=== PATIENT | female | born 1965 | race Caucasian/White ===

== ENCOUNTER 2018-11-06 16:43 | Emergency (ER) | payer BC, OTHER ==
[~2018-11-06] VITALS: Ht 162.6 cm; Wt 79.4 kg
[~2018-11-06 16:43] MED LIST: ATIVAN1 MG PO; BACTRIM DS1 EA; BISTOLIC; CEFUROXIME250 MG PO; CYMBALTA60 MG PO; ENALAPRIL MALEAT5 MG; FLUOXETINE; HYDROCODONE-AP1 EAC1 PO; KRISTALOSE20 GM PO; LEVAMIR SC; LISINOPRIL10 MG PO; LYRICA150 MG PO; NOVOLOG100 UNIT/1 SQ; PHENTERMINE H37.5 MG PO; PROTONIX40 M1; PYRIDIUM200 MG PO; QUETIAPINE FUMA25 MG PO; SPIRONOLACTONE100 MG PO; TRAZODONE HCL100 MG PO; VENLAFAXINE HCL75 M2 PO; Z.0.HUMALOG100 UNIT/ SC; Z.0.LANTUS100 UNIT/1; Z.0.NEURONTIN300 MG
--- OUTSIDE RECORDS SUMMARY | 2018-11-06 16:46 | XMS REPORT ---
Author Author [facility] Address Unknown Phone Unavailable Care Team Providers Care Senior Lead Project Manager Name Role Phone CLARISA BOWMAN Unavailable Unavailable Payers Payer Name Policy Type Policy Number Effective Date Expiration Date Problems This patient has no known problems. Allergies, Adverse Reactions, Alerts Allergy Name Allergy Type Status Severity Reaction(s) Onset Date Inactive Date Treating Clinician Comments hydrocodone DA Active MO 2017-07-15 00:00:00 Medications This patient has no known medications. Results Test Description Test Time Test Comments Text Results Atomic Results Result Comments CR - XRAY LUMBOSACRAL XR 2/3 VIEWS 2018-02-13 13:16:13 CLINICAL INDICATION: M54.5 Low back painFINDINGS:COMPARISON: NoneFive lumbar vertebrae are present. There is mild generalized levoscoliosis. There is mild - moderate degeneration of all lumbar discs with spondylosis. L5-S1 disc is most degenerated.Facet joints are degenerated from L1-2 - L5-S1.There are compression fractures of L2 and L3 which have a chronic appearance. At L2 there is approxi mately 50% loss of height. At L3 there is approximately 30% loss of vertical height. There is spondylosis bridging adjacent vertebra at each of these levels. However, if there is any concern over acute fracture, lumbar MRI could be performed. There are surgical clips in the right upper quadrant.IMPRESSION:1. There are five lumbar vertebra with mild levoscoliosis.2. Compression deformities at L2 and L3 have a chronic appearance. If there is any concern over acute fracture, lumbar MRI would be recommended.3. Multilevel facet osteoarthritis and disc degeneration. CHEST XRAY LINE PLACEMENT [place] [address] Patient Name: VERONICA GREENWOOD MR #: [id number] : 1965 Age/Sex: 52/F Req #: [id number] Adm Physician: CLARISA BOWMAN MD Ordered by: CLARISA BOWMAN MD Report #: [id number] Location: [facility] Room/Bed: [facility] Procedure: [id number] DX/CHEST XRAY LINE PLACEMENT Exam Date: 08/09/17 Exam Time: 1757 REPORT STATUS: Signed EXAMINATION: Chest, CHEST XRAY LINE PLACEMENT INDICATION: Chest pain COMPARISON: Portable chest 08/06/2017 FINDINGS: LINES: Right peripherally inserted central venous catheter is present with the tip projecting over the expected region of the superior vena cava. Heart: Normal cardiac silhouette. Vascular: The pulmonary vasculature is within normal limits. Atherosclerotic calcifications of the aortic arch. Mediastinum: No mediastinal, hilar, or axillary mass or lymphadenopathy. Lungs: No parenchymal mass. No focal consolidation. Pleura: No pleural effusion. No pneumothorax. Bones: No acute osseous abnormality. Degenerative changes of the thoracic spine. Soft tissues: Normal. Impression: No acute radiographic abnormality. Signed by: Dr. Pillo Parsons M.D. on 08/09/2017 6:22 PM Dictated By: PILLO PARSONS MD 21 Transcribed By: JENIFFER on 08/09/171821 COPY TO: CLARISA BOWMAN MD CHEST SINGLE (PORTABLE) [place] [address] Patient Name: VERONICA GREENWOOD MR #: [id number] : 1965 Age/Sex: 52/F Req #: [id number] Adm Physician: CLARISA BOWMAN MD Ordered by: CLARISA BOWMAN MD Report #: [id number] Location: [facility] Room/Bed: [facility] 179-1 Procedure: [id number] DX/CHEST SINGLE (PORTABLE) Exam Date: 08/06/17 Exam Time: 193 REPORT STATUS: Signed Single view chest August 06, 2017 Clinical history: Admission Technique: AP view chest Comparison: June 19, 2011 Findings: The lungs are clear and symmetrically inflated. No pleural effusions. Enlarged cardiac silhouette for technique. Cephalization pulmonary vasculature with azygos and pulmonary artery enlargement. The skeleton is grossly intact. Impression: Cardiomegaly with central vascular congestion. This report was generated with voice-recognition technology. Errors in zoogler can occur. Please interpret accordingly and contact a radiologist if there are any questions regarding the report. Signed by: Dr. Verito De Paz M.D. on 08/06/2017 9:19 PM Dictated By: VERITO DE PAZ MD 18 Transcribed By: JENIFFER on 08/06/172118 COPY TO: CLARISA BOWMAN MD MRI PELVIS [place] [address] Patient Name: VERONICA GREENWOOD MR #: [id number] : 1965 Age/Sex: 51/F Req #: [id number] Adm Physician: Ordered by: CLARISA BOWMAN MD Report #: [id number] Location: MRI Room/Bed: Procedure: [id number] MRI/MRI PELVIS WOW Exam Date: Exam Time: REPORT STATUS: Signed TECHNIQUE: Magnetic resonance imaging of the PELVIS was performed WITH and WITHOUT, 8 cc of intravenous Gadavist. HISTORY: Bony exostosis, reported history of infection in pelvic bone, reported history of MRSA skin infections COMPARISON: CT of the pelvis May 04, 2017, CT of the pelvis October 01, 2010. Nuclear medicine bone scan May 05, 2017. Lumbar spine MRI May 07, 2017. FINDINGS: Bones: No focal or infiltrative bone marrow replacing abnormality. Compression fracture deformities of L2, L3 and L4 are likely stable within the limitations of this comparison. No evidence of acute/active osteomyelitis involving the right ischium. Joints: Mild to moderate degenerative changes of the hips. Soft tissues: Heterotopic ossification adjacent to the right ischial tuberosity at the in the region of the proximal hamstring tendons which are markedly thickened and heterogeneous with mild intrasubstance edema. IMPRESSION: 1. Findings which are most suggestive of the sequela of a late subacute to chronic proximal right hamstring tear and enthesopathy. No MRI evidence of acute/active right ischial osteomyelitis. Chronic/treated osteomyelitis may be a consideration in the appropriate setting. 2. Stable appearing compression deformities of L2, L3 and L4, better characterized on the MRI of the lumbar spine from May 07, 2017. Signed by: Dr. Salty Horne M.D. on 05/23/2017 12:09 PM Dictated By: SALTY HORNE DO 120 Transcribed By: JENIFFER on 05/23/17 120 COPY TO: CLARISA BOWMAN MD MRI SPINE LUMBAR WOW [place] [address] Patient Name: VERONICA GREENWOOD MR #: [id number] : 1965 Age/Sex: 51/F Req #: [id number] Adm Physician: CLARISA BOWMAN MD Ordered by: JAMES ALVA MD Report #: [id number] Location: MED/SURG3 Room/Bed: [facility] Procedure: [id number] MRI/MRI SPINE LUMBAR WOW Exam Date: 05/07/17 Exam Time: 1135 REPORT STATUS: Signed History: Low back pain Comparison studies: None Technique: Sagittal, coronal and axial T2 , sagittal T1 and IR, axial spin density oblique. Post contrast axial and sagittal T1. Intravenous contrast: 8 cc of Gadavist Findings: Number of lumbar vertebral bodies:5 Alignment: Normal lordosis.No scoliosis. Soft tissues: Subtle T2 hyperintense inflammatory changes in the right paraspinal soft tissues are L4-5.. Paraspinal muscles: Fatty infiltrated from L4 through S1. Lower thoracic cord:Normal in signal and morphology. The tip of the conus is at T12-L1. Cauda equina: No masses. No arachnoiditis. Vertebrae: An acute compression fracture along the superior endplate of L2 (hypointense on T1, hyperintense on T2 and diffusely enhancing) results in less than 20% height loss. A 3 mm retropulsed fragment from the superior endplate does not result in significant spinal canal stenosis. The enhancing inflammatory changes extend into the pedicles and focally into the paraspinal soft tissues. Additional chronic compression fractures along the superior endplates of L3 and L4 which results in approximately focal 30% of height loss are still associated with subtle T2 hyperintense enhancing inflammatory changes but much less than at L2. No retropulsed fragments displaced into the canal at both levels. Focal T2 hyperintense inflammatory changes along the anteroinferior endplate of L1 are not associated with compression fractures. Otherwise, no abnormalities at T11, T12, L4, L5 and S1. Degenerative changes: L1-L4: Patent spinal canal and foramina. No disc herniation. L4-5: A central disc protrusion indents the thecal sac but does not result in spinal canal or foraminal stenosis. L5-S1: Mildly degenerated disc without Modic type I inflammatory changes along the endplates. A 2 mm central and right central disc protrusion abuts but does not compress the right S1 nerve root. Patent spinal canal. Foraminal stenosis is moderate left, mild right due to an asymmetric disc bulge and endplate osteophytes. No disc herniation. Partially visualized sacrum: No signal abnormalities. IMPRESSION: 1. Acute compression fracture along the superior endplate of L2 as described. 2. Chronic focal compression fractures at L3 and L4 are associated with subtle residual inflammatory changes. 3. A central disc protrusion at L4-5 does not compress nerve roots, foramina or spinal canal. 4. Degenerative changes result in foraminal stenosis, moderate left, mild right at L5-S1. Signed by: Dr. Zeeshan Ly M.D. on 05/07/2017 6:54 PM Dictated By: ZEESHAN LY MD, MD 53 Transcribed By: JENIFFER on 05/07/171853 COPY TO: JAMES ALVA MD SPECIAL PROCEDURE IN CRITICAL POWER TECHNICIAN [place] [address] Patient Name: VERONICA GREENWOOD MR #: [id number] : 1965 Age/Sex: 51/F Req #: [id number] Adm Physician: CLARISA BOWMAN MD Ordered by: JAMES ALVA MD Report #: [id number] Location: MED/SURG3 Room/Bed: [facility] Procedure: [id number] IR/SPECIAL PROCEDURE IN CRITICAL POWER TECHNICIAN Exam Date: Exam Time: REPORT STATUS: Signed Date and Time: 05/06/2017 Procedure: Right internal jugular tunneled central venous catheter placement 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 Schultz Pre-operative diagnosis: Osteomyelitis, need for long-term intravenous antibiotics Post-operative diagnosis: Osteomyelitis, need for long-term intravenous antibiotics Conscious Sedation: Fentanyl 75 mcg intravenous. The patient's heart rate and pulse oximetry were continuously monitored by the interventional radiology nurse. Blood pressure was monitored at 5 minute intervals. Additional Medications: Lidocaine 2% for local anesthesia Fluoroscopy time: 1.5 minutes Dose-area Product: 558 cGycm2. Contrast used: None Estimated blood loss: Less than 5 cc Blood products administered: None Specimens: None Implants: 9 Tongan dual lumen tunneled central venous catheter Condition at completion of procedure: Stable Disposition: Returned to chow unit. DISCUSSION: Informed consent for the procedure was obtained from the patient and documented in the medical record. The patient was placed in the supine position on the angiographic table. The right neck and upper chest were prepped and draped in the standard sterile fashion. Preliminary sonographic evaluation confirmed patency of the right internal jugular vein, evidenced by compressibility. 2% lidocaine was infiltrated into the skin and subcutaneous tissues for local anesthesia. Then under continuous sonographic guidance, a 21-gauge micropuncture needle was used to access the right internal jugular vein. A 0.0 1 8-in. wire was advanced centrally under fluoroscopic guidance. The needle was exchanged for a 5 Tongan micropuncture sheath. Intravascular length to the upper right atrium was measured using the microwire. The wire was then upsized to a 0.0 3 5-in. Amplatz wire which was advanced into the inferior vena cava under fluoroscopic guidance. Attention was then turned to creation of a tunnel exit site on the right upper chest approximately 2 fingerbreadths below the clavicle. 2% lidocaine was infiltrated into the skin and subcutaneous tissues on the right upper chest extending to the venotomy at the right lower neck. A small stab incision was made. The catheter was then tunneled from the right upper chest to the right lower neck, placing the retention cuff approximately 2 cm into the subcutaneous tunnel. The catheter was then cut to the predetermined intravascular length. The micropuncture sheath was then exchanged for a 10 Tongan peel-away sheath over the wire. The wire and obturator of the sheath we re removed and the catheter was advanced through the peel-away sheath which was then broken and discarded. The catheter tip was positioned in the upper right atrium. Each lumen was tested and showed adequate bidirectional flow. The small caliber lumen was then packed with 1000 units of heparin. The large caliber lumen was then packed with 2000 units of heparin. The catheter was secured to the skin with monofilament nylon suture. The venotomy at the right lower neck was closed with tissue adhesive. Sterile dressings were applied. The patient tolerated the procedure well without immediate complication. FINDINGS: Patent right internal jugular vein. IMPRESSION: Successful placement of a 9 Tongan, dual lumen tunneled central venous catheter for purposes of long-term intravenous antibiotic administration. Signed by: Dr. Andi Schultz M.D. 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 Schultz Pre-operative diagnosis: Osteomyelitis, need for long-term intravenous antibiotics Post-operative diagnosis: Osteomyelitis, need for long-term intravenous antibiotics Conscious Sedation: Fentanyl 75 mcg intravenous. The patient's heart rate and pulse oximetry were continuously monitored by the interventional radiology nurse. Blood pressure was monitored at 5 minute intervals. Additional Medications: Lidocaine 2% for local anesthesia Fluoroscopy time: 1.5 minutes Dose-area Product: 558 cGycm2. Contrast used: None Estimated blood loss: Less than 5 cc Blood products administered: None Specimens: None Implants: 9 Tongan dual lumen tunneled central venous catheter Condition at completion of procedure: Stable Disposition: Returned to chow unit. DISCUSSION: Informed consent for the procedure was obtained from the patient and documented in the medical record. The patient was placed in the supine position on the angiographic table. The right neck and upper chest were prepped and draped in the standard sterile fashion. Preliminary sonographic evaluation confirmed patency of the right internal jugular vein, evidenced by compressibility. 2% lidocaine was infiltrated into the skin and subcutaneous tissues for local anesthesia. Then under continuous sonographic guidance, a 21-gauge micropuncture needle was used to access the right internal jugular vein. A 0.0 1 8-in. wire was advanced centrally under fluoroscopic guidance. The needle was exchanged for a 5 Tongan micropuncture sheath. Intravascular length to the upper right atrium was measured using the microwire. The wire was then upsized to a 0.0 3 5-in. Amplatz wire which was advanced into the inferior vena cava under fluoroscopic guidance. Attention was then turned to creation of a tunnel exit site on the right upper chest approximately 2 fingerbreadths below the clavicle. 2% lidocaine was infiltrated into the skin and subcutaneous tissues on the right upper chest extending to the venotomy at the right lower neck. A small stab incision was made. The catheter was then tunneled from the right upper chest to the right lower neck, placing the retention cuff approximately 2 cm into the subcutaneous tunnel. The catheter was then cut to the predetermined intravascular length. The micropuncture sheath was then exchanged for a 10 Tongan peel-away sheath over the wire. The wire and obturator of the sheath were removed and the catheter was advanced through the peel-away sheath which was then broken and discarded. The catheter tip was positioned in the upper right atrium. Each lumen was tested and showed adequate bidirectional flow. The small caliber lumen was then packed with 1000 units of heparin. The large caliber lumen was then packed with 2000 units of heparin. The catheter was secured to the skin with monofilament nylon suture. The venotomy at the right lower neck was closed with tissue adhesive. Sterile dressings were applied. The patient tolerated the procedure well without immediate complication. FINDINGS: Patent right internal jugular vein. IMPRESSION: Successful placement of a 9 Tongan, dual lumen tunneled central venous catheter for purposes of long-term intravenous antibiotic administration. Signed by: Dr. Andi Schultz M.D. on 05/06/2017 3:17 PM Dictated By: ANDI SCHULTZ MD 1115 Transcri bed By: JENIFFER on 05/29/17 111 COPY TO: JAMES ALVA MD BONE SCAN, 3 PHASE [place] [address] Patient Name: VERONICA GREENWOOD MR #: [id number] : 1965 Age/Sex: 51/F Req #: [id number] Adm Physician: CLARISA BOWMAN MD Ordered by: ANDREW DAO MD Report #: [id number] Location: MED/SURG3 Room/Bed: [facility] [place] Procedure: [id number] NM/BONE SCAN, 3 PHASE Exam Date: 05/05/17 Exam Time: 1530 REPORT STATUS: Signed Bone Scan, three-phase with SPECT Reason for exam: 51 F with acute low back pain and right hip pain; concern for osteomyelitis; Patient passed out twice before pain began. Medications from outside hospital were not helping. Radiopharmaceutical: Tc-99m MDP 26 mCi Comparison: None Following intravenous administration of the radiopharmaceutical, dynamic flow and immediate blood pool images of the lower back, pelvis and hips followed by delayed total body and selected spot images were obtained. Tomographic images of the lower lumbar spine, pelvis and hips were also obtained. Flow and blood pool images show symmetric distribution of tracer in the lower back, pelvis and hips. Focal increased tracer is seen in the right lower pelvis but none is seen in the lumbar spine. On the delayed images, focal increased tracer is seen in L2 and on the right side of L3. Focal increased tracer is also seen in the right ischium inferior to the right acetabulum. The tomographic images confirm the focal increased tracer uptake in the right ischium. L2 and L3 are not included in the tomographic images. Distribution of tracer is unremarkable throughout the remainder of the skeletal system. No abnormal accumulation of tracer is seen in the soft tissues or urinary tract. Impression: 1. Acute osteoblastic process in L2 and L3 is most consistent with trauma given absence of focal uptake on the flow and blood pool images. 2. Acute osteoblastic process in the right ischium is worrisome for osteomyelitis. Signed by: Dr. Viki Mccullough M.D. on 05/05/2017 7:50 PM Dictated By: VIKI MCCULLOUGH MD 49 Transcribed By: JENIFFER on 05/05/171949 COPY TO: ANDREW DAO MD CT ABDOMEN/PELVIS W [place] [address] Patient Name: VERONICA GREENWOOD MR #: [id number] : 1965 Age/Sex: 51/F Req #: [id number] Adm Physician: CLARISA BOWMAN MD Ordered by: SAMMI BARBER MD Report #: [id number] Location: MED/SURG3 Room/Bed: [facility] Procedure: [id number] CT/CT ABDOMEN/PELVIS W Exam Date: 05/04/17 Exam Time: 732 REPORT STATUS: Signed ADDENDUM #1 Addendum: Comparison is made to CT abdomen and pelvis without contrast 10/01/2010 Interval development of a bony exostosis in the mid aspect of the right inferior pubic ramus (series 2, image 91 and sagittal image 45), which extends into the right adductor muscle and measures approximately 3.6 cm in length and likely has a cartilage cap. This corresponds to the focus of increased tracer uptake on recent bone scan dated 05/05/2017. No evidence of infection at this location. Given the findings and patient's symptoms of pain, recommend MRI bony pelvis (MS protocol) with and without contrast, for evaluation of the cartilage cap. Signed by: Dr. Gabino Brunson M.D. on 05/15/2017 11:37 AM ORIGINAL REPORT EXAM: CT Abdomen and Pelvis WITH contrast INDICATION: Right lower quadrant pain, nausea and vomiting, evaluate for appendicitis COMPARISON: CT abdomen and pelvis from 10/01/2010 and KUB from 10/04/2010 TECHNIQUE: Abdomen and pelvis were scanned utilizing a multidetector helical scanner from the lung base to the pubic symphysis after administration of IV contrast. Coronal and sagittal reformations were obtaine d. Routine protocol was performed. Scan was performed when during portal venous phase. IV CONTRAST: 100 mL of Isovue-370 ORAL CONTRAST: None RADIATION DOSE: Total DLP: 593.3 mGy*cm Estimated effective dose: (DLP x 0.015 x size factor) mSv COMPLICATIONS: None FINDINGS: LINES and TUBES: None. LOWER THORAX: Minimal scarring at both lung bases. HEPATOBILIARY: No focal hepatic lesions. No biliary ductal dilation. GALLBLADDER: Cholecystectomy. SPLEEN: No splenomegaly. Small splenule inferior to the spleen. PANCREAS: No focal masses or ductal dilatation. ADRENALS: 1.5 cm right adrenal gland nodule is mildly hyperdense measuring 38 Hounsfield units, however, this nodule was low density on 10/01/2010 and is stable in size and likely represented an adrenal gland adenoma. KIDNEYS/URETERS: Kidneys enhance symmetrically. No hydronephrosis. Stable 1.7 cm left renal cyst. Mild bilateral perinephric fat stranding. Previously noted left renal stone is no longer seen. Few smaller cysts in the right kidney with cortical scarring. No stones. GI TRACT: No abnormal distention, wall thickening, or evidence of bowel obstruction. Large amount of retained stool is throughout the colon without dilatation. Appendix is normal. PELVIC ORGANS/BLADDER: Hysterectomy. The urinary bladder is moderately distended without wall thickening or calcifications. Mild amount of air in the urinary bladder may be due to recent instrumentation. LYMPH NODES: No lymphadenopathy. Stable few small nonspecific mesenteric lymph nodes. VESSELS: Mild atherosclerotic calcifications of the abdominal aorta and pelvic arteries without aneurysm. The celiac trunk, SMA, and SLIME are widely patent. Single bilateral renal arteries are patent Incidental circumaortic left renal vein. PERITONEUM / RETROPERITONEUM: No free air or fluid. BONES: Moderate wedge compression deformity with associated multiple lucent lesions within L3 vertebral body lucent lesions appear to extend into the posterior element on the left. There is also diffuse cortical lucency at L2 vertebral body with degenerative changes of the superior endplate. Moderate before meals space narrowing at L5- S1. All these findings are new when compared to 10/01/2010. SOFT TISSUES: Unremarkable. IMPRESSION: Normal appendix. Interval development of advanced degenerative changes in the lumbar spine as well as wedge compression deformity with cortical destruction of L3 vertebral body. Though these changes may be degenerative, cannot exclude additional pathology such as osteomyelitis or metastasis. Recommend further evaluation with bone scan. These findings may correlate with patient's pain. Stable indeterminate right adrenal gland nodule since 10/01/2010. Signed by: Dr. Catia Moffett M.D. on 05/04/2017 8:21 AM Dictated By: CATIA MOFFETT MD 1137 Transcribed By: JENIFFER on 05/04/17 3839 COPY TO: SAMMI BARBER MD
[2018-11-06 22:20] LABS: BASOPHILS % 0.4 % (0.0-1.0); EOSINOPHILS # (AUTO) 0.2 (0.0-0.4); EOSINOPHILS % 2.1 % (0.0-6.0); HEMATOCRIT 35.6 % (34.2-44.1); HEMOGLOBIN 11.7 g/dL (12.0-16.0); LYMPHOCYTES # (AUTO) 2.6 (1.0-3.2); LYMPHOCYTES % 31.7 % (18.0-39.1); MEAN CORPUSCULAR HEMOGLOBIN 26.2 pg (28-32); MEAN CORPUSCULAR HGB CONC 32.9 g/dL (31-35); MEAN CORPUSCULAR VOLUME 79.6 fL (81-99); MONOCYTES # (AUTO) 0.4 (0.2-0.8); MONOCYTES % 5.3 % (4.4-11.3); NEUTROPHILS # (AUTO) 4.9 (2.1-6.9); NEUTROPHILS % 60.1 % (38.7-80.0); PLATELET COUNT 236 x10e3/uL (140-360); RED BLOOD COUNT 4.47 x10e6/uL (3.6-5.1); RED CELL DISTRIBUTION WIDTH 13.3 % (11.7-14.4)
[2018-11-06 22:31] LABS: ALBUMIN 3.2 g/dL (3.5-5.0); ALBUMIN/GLOBULIN RATIO 0.7 (0.8-2.0); ANION GAP 12.5 mmol/L (8-16); CREATININE, SERUM 1.14 mg/dL (0.57-1.11); POTASSIUM 4.5 mmol/L (3.5-5.1)
[2018-11-06] MEDS ORDERED: INSULIN REGULAR, HUMAN 100 UNIT/1 ML 3ML VIAL SQ ONE (23:00)
[2018-11-06 23:05] VITALS: BP 163/88
== END 2018-11-06 23:06 | disposition home or self-care (01) ==
LOC: ER 16:43
DX: E11.65 Type 2 diabetes mellitus with hyperglycemia (principal); E11.40 Type 2 diabetes mellitus with diabetic neuropathy, unspecified; I10 Essential (primary) hypertension; J45.909 Unspecified asthma, uncomplicated; F32.9 Major depressive disorder, single episode, unspecified
CPT/HCPCS: 36415; 80053; 85025; 96372; 99283

== ENCOUNTER → 2019-05-04 | Day surgery (SDC) | payer BC, OTHER ==
[2019-04-30 15:17] LABS: BASOPHILS % 0.3 % (0.0-1.0); EOSINOPHILS # (AUTO) 0.1 (0.0-0.4); EOSINOPHILS % 1.1 % (0.0-6.0); HEMATOCRIT 38.1 % (34.2-44.1); HEMOGLOBIN 12.1 g/dL (12.0-16.0); LYMPHOCYTES % 27.7 % (18.0-39.1); MEAN CORPUSCULAR HEMOGLOBIN 26.8 pg (28-32); MEAN CORPUSCULAR HGB CONC 31.8 g/dL (31-35); MEAN CORPUSCULAR VOLUME 84.5 fL (81-99); MONOCYTES # (AUTO) 0.4 (0.2-0.8); MONOCYTES % 5.4 % (4.4-11.3); NEUTROPHILS # (AUTO) 4.7 (2.1-6.9); NEUTROPHILS % 65.1 % (38.7-80.0); PLATELET COUNT 197 x10e3/uL (140-360); RED BLOOD COUNT 4.51 x10e6/uL (3.6-5.1); RED CELL DISTRIBUTION WIDTH 13.1 % (11.7-14.4)
[2019-04-30 15:38] LABS: ALBUMIN 3.6 g/dL (3.5-5.0); ANION GAP 17.1 mmol/L (8-16); CALCIUM 9.2 mg/dL (8.4-10.2); CREATININE, SERUM 1.33 mg/dL (0.57-1.11); POTASSIUM 4.1 mmol/L (3.5-5.1)
[2019-05-04] VITALS (14 sets, daily range): BP systolic 110–185; BP diastolic 67–107
[~2019-05-04] VITALS: Ht 162.6 cm; Wt 73.9 kg
[~2019-05-04] MED LIST changes: +ALPRAZOLAM 0.5 MG TAB ONE; +ASPIR 8181 MG PO; +ASPIRIN 325 MG TAB ONE; +BIVALRIUDIN 250 MG/VIAL VIAL IV ONE; +DIPHENHYDRAMINE HCL 25 MG CAP ONE; +FENTANYL CITRATE/PF 100MCG/2 ML INJ ONE; +HEPARIN SOD (PORCINE) 1000 UNIT/ML 30ML ONE; +HEPARIN SOD/SOD CHLORIDE 2,000 ML ONE; +IOPAMIDOL 370 MG/ML 200 ML INFUS..BTL INJ ONE; +LEVEMIR100 UNIT/1 SC; +LIDOCAINE HCL 2% LOCAL 20 ML VIAL ONE; +LYRICA75 MG PO; +METOPROLOL SUCC50 MG PO; +MIDAZOLAM HCL 2 MG/2 ML VIAL ONE; +MORPHINE SULFATE INJ 4 MG/ML INJ 1ML ONE; +PRASUGREL 10 MG TAB ONE; +SODIUM CHLORIDE 0.9% 1000ML 1,000 ML ONE; +SODIUM CHLORIDE 0.9% 50ML 50 ML ONE; +VENLAFAXINE HC100 MG PO; +VERAPAMIL HCL 2.5 MG/ML 2 ML VIAL ONE
--- OUTSIDE RECORDS SUMMARY | 2019-05-04 10:39 | XMS REPORT | Continuity of Care Document ---
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 Name Role Phone [employer] [facility] Unavailable Unavailable Problems Problem Status Onset Date Classification Date Reported Comments Source ACS Active 02/23/2019 [place] DIZZINESS Active 02/23/2019 [facility] ACS (ACUTE CORONARY SYNDROME) Active 02/23/2019 [facility] Cellulitis of left toe 09/16/2018 03/28/2019 [facility] Hyperglycemia, unspecified 09/08/2018 03/28/2019 [facility] Cellulitis, unspecified 09/08/2018 03/28/2019 [facility] FOOR INJURY Active 09/08/2018 [facility] Hypovolemia 08/19/2018 03/01/2019 [facility] BLURRED VISION, WEAKNESS, N/V/D Active 08/10/2018 [facility] Noninfective gastroenteritis and colitis, unspecified 08/08/2018 02/19/2019 [facility] CONSTIPATION/ VOMITING Active 07/30/2018 [facility] Atherosclerotic heart disease of [place] coronary artery with unspecified angina pectoris 04/11/2018 10/17/2018 [facility] Tremor, unspecified 04/08/2018 10/26/2018 [facility] TREMORS Active 04/08/2018 [facility] ACUTE CHEST PAIN Active 03/27/2018 [facility] CHEST PAIN Active 03/27/2018 [facility] DIABETIC FOOT Active 03/19/2018 [facility] WOUND INFECTION Active 03/19/2018 [facility] Unspecified abdominal pain 05/03/2017 05/06/2017 [facility] BACK PAIN Active 05/02/2017 [facility] DIZZINES /FALLING Active 02/05/2017 [facility] SEPSIS, DIZZINES /FALLING Active 02/05/2017 [facility] TRANSFER - INFECTED HAND Active 01/12/2017 [facility] CELLULITIS OF HAND, RIGHT Active 01/12/2017 [facility] OTHER Active 01/11/2017 [place] Enterobacter (organism) Active 05/23/2015 Problem 03/28/2019 Breast abscess, E. aerogenes, 05/23/2015 Problem added by Discern Expert. [facility] Methicillin resistant Staphylococcus aureus (organism) Active 05/23/2015 Problem 03/28/2019 [place], 05/23/2015 Problem added by Discern Expert. [facility] Diabetes mellitus (disorder) Active Problem 01/15/2017 [facility] Diabetic neuropathy (disorder) Active Problem 01/15/2017 [facility] Viral hepatitis C (disorder) Resolved Problem 01/15/2017 [facility] Alcoholic cirrhosis (disorder) Active Problem 03/28/2019 [facility] Coronary arteriosclerosis (disorder) Active Problem 03/28/2019 [facility] Irritable colon (disorder) Active Problem 03/28/2019 [facility] Culture positive for methicillin resistant Staphylococcus aureus (finding) Resolved Problem 03/28/2019 [facility] History of - liver disease (context-dependent category) Active Problem 03/28/2019 [facility] Inflammatory disease of liver (disorder) Active Problem 03/28/2019 [facility] Hypertensive disorder, systemic arterial (disorder) Active Problem 03/28/2019 [facility] Depressive disorder (disorder) Active Problem 03/28/2019 [facility] Prolapsed lumbar intervertebral disc (disorder) Active Problem 03/28/2019 [facility] Sleep apnea (finding) Active Problem 03/28/2019 [facility] Atherosclerotic heart disease of [place] coronary artery without angina pectoris 03/28/2019 [facility] Major depressive disorder, single episode, unspecified 03/28/2019 [facility] Essential (primary) hypertension 10/26/2018 [facility] Irritable bowel syndrome without diarrhea 03/28/2019 [facility] 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 10/26/2018 [facility] Personal history of Methicillin resistant Staphylococcus aureus infection 03/28/2019 [facility] Congestive heart failure (disorder) Active Problem 03/28/2019 [facility] Hyperlipidemia (disorder) Active Problem 03/28/2019 [facility] Neuropathy (disorder) Active Problem 03/28/2019 [facility] Hyperkalemia 03/01/2019 [facility] Type 2 diabetes mellitus without complications 03/01/2019 [facility] Orthostatic hypotension 03/01/2019 [facility] Chondrocostal junction syndrome [Tietze] 03/01/2019 [facility] Alcoholic cirrhosis of liver without ascites 03/01/2019 [facility] Urinary tract infection, site not specified 02/19/2019 [facility] Chronic systolic (congestive) heart failure 02/19/2019 [facility] Hypertensive heart and chronic kidney disease with heart failure and stage 1 through stage 4 chronic kidney disease, or unspecified chronic kidney disease 02/19/2019 [facility] Acute kidney failure, unspecified 02/19/2019 [facility] Dehydration 02/19/2019 [facility] Chronic kidney disease, stage 3 (moderate) 02/19/2019 [facility] Type 2 diabetes mellitus with diabetic chronic kidney disease 02/19/2019 [facility] Type 2 diabetes mellitus with diabetic neuropathy, unspecified 02/19/2019 [facility] Acquired absence of both cervix and uterus 02/19/2019 [facility] assisted (current) use of insulin 02/19/2019 [facility] 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 02/19/2019 [facility] Allergy status to narcotic agent status 02/19/2019 [facility] Cellulitis of right toe 03/28/2019 [facility] Type 1 diabetes mellitus with hyperglycemia 03/28/2019 [facility] Type 1 diabetes mellitus with diabetic neuropathy, unspecified 03/28/2019 [facility] Hypertensive heart disease with heart failure 03/28/2019 [facility] Heart failure, unspecified 03/28/2019 [facility] Unspecified cirrhosis of liver 03/28/2019 [facility] Unspecified viral hepatitis C without hepatic coma 03/28/2019 [facility] Hyperlipidemia, unspecified 03/28/2019 [facility] Sleep apnea, unspecified 03/28/2019 [facility] Patient's other noncompliance with medication regimen 03/28/2019 [facility] Type 1 diabetes mellitus with other specified complication 10/17/2018 [facility] Cellulitis of right lower limb 10/17/2018 [facility] Other acute osteomyelitis, right ankle and foot 10/13/2018 [facility] Type 1 diabetes mellitus with foot ulcer 10/17/2018 [facility] Non-pressure chronic ulcer of other part of right foot with unspecified severity 10/17/2018 [facility] Type 1 diabetes mellitus with diabetic polyneuropathy 10/13/2018 [facility] Anxiety disorder, unspecified 10/13/2018 [facility] Bitten by dog, initial encounter 10/13/2018 [facility] Acquired absence of right hand 10/17/2018 [facility] Personal history of pulmonary embolism 10/13/2018 [facility] Personal history of other venous thrombosis and embolism 10/13/2018 [facility] Personal history of nicotine dependence 10/13/2018 [facility] Other osteomyelitis, ankle and foot 10/17/2018 [facility] Other chronic pain 10/17/2018 [facility] Bipolar disorder, unspecified 10/17/2018 [facility] Chronic diastolic (congestive) heart failure 10/17/2018 [facility] Cannabis abuse, uncomplicated 10/17/2018 [facility] Bifascicular block 10/17/2018 [facility] Unspecified right bundle-branch block 10/17/2018 [facility] CELLULITIS OF RIGHT UPPER LIMB Active [facility] SEPSIS, UNSPECIFIED ORGANISM Active [facility] TYPE 2 DIABETES MELLITUS WITH UNSPECIFIE Active [facility] SYNCOPE AND COLLAPSE Active [facility] CONDUCTION DISORDER, UNSPECIFIED Active [facility] NONINFECTIVE GASTROENTERITIS AND COLITIS Active [facility] CHEST PAIN, UNSPECIFIED Active [facility] ACUTE ISCHEMIC HEART DISEASE, UNSPECIFIE Active [facility] Medications Medication Details Route Status Patient Instructions Ordering Provider Order Date Source Omnipaque 300 injectable solution 100 mL, Route: IVP, Drug Form: SOLN, Dosing Weight 77.386, kg, ONCALL, GFR > 45 mL/min, Start date: 02/25/19 23:00:00 CDT, Duration: 1 doses or times, 0Notes: (Same as:Omnipaque 300). WASTE: F/P - Black; E - [employer] Trash Bin No Longer Active 02/26/2019 [facility] pantoprazole 40 mg oral enteric coated tablet 40 mg=1 tab, PO, BID-Before Meals, 0 Refill(s) Active 02/25/2019 [facility] pantoprazole 40 mg, 1 tab, Route: PO, Drug form: ECTAB, BID-Before Meals, Dosing Weight 77.273, kg, Start date: 02/24/19 16:30:00 CDT, Duration: 30 day, Stop date: 03/26/19 7:30:00 CDT, 0Notes: Tablet should not be chewed or crushed. (Same as: Protonix) No Longer Active 02/24/2019 [facility] metoprolol extended release 100 mg, 1 tab, Route: PO, Drug form: ERTAB, Daily, Start date: 02/24/19 9:00:00 CDT, Duration: 30 day, Stop date: 03/25/19 9:00:00 CDT, 0Notes: (Same as: Toprol XL) May split tab, but do not crush. No Longer Active 02/24/2019 [facility] Aspirin 325 mg, 1 tab, Route: PO, Drug form: TAB, Daily, Dosing Weight 77.273, kg, Start date: 02/24/19 9:00:00 CDT, Duration: 30 day, Stop date: 03/25/19 9:00:00 CDT, 0Notes: Take with food. No Longer Active 02/24/2019 [facility] venlafaxine 75 mg, 2 cap, Route: PO, Drug form: ERCAP, Daily, Dosing Weight 77.273, kg, Start date: 02/24/19 9:00:00 CDT, Duration: 30 day, Stop date: 03/25/19 9:00:00 CDT, 0Notes: Do not crush, or chew. Contents of capsule may be sprinkled on a spoonful of applesauce and swallowed immediately without chewing; followed with a glass of water to ensure complete swallowing of the pellets. (Same As: Effexor XR) No Longer Active 02/24/2019 [facility] quetiapine 25 mg, 1 tab, Route: PO, Drug form: TAB, BID, Dosing Weight 77.273, kg, Start date: 02/24/19 9:00:00 CDT, Duration: 30 day, Stop date: 03/25/19 17:00:00 CDT, 0Notes: (Same as: SEROquel) No Longer Active 02/24/2019 [facility] pregabalin 150 mg, 2 cap, Route: PO, Drug form: CAP, BID, Dosing Weight 77.273, kg, Start date: 02/24/19 9:00:00 CDT, Duration: 30 day, Stop date: 03/25/19 17:00:00 CDT, 0Notes: (Same as: Lyrica) No Longer Active 02/24/2019 [facility] Levemir Route: SUB-Q, Drug form: SOLN, BID, Dosing Weight 77.273, kg, Start date: 02/24/19 9:00:00 CDT, Duration: 30 day, Stop date: 03/25/19 17:00:00 CDT No Longer Active 02/24/2019 [facility] insulin glargine 50 unit, 0.5 mL, Route: SUB-Q, Drug form: SOLN, BID, Start date: 02/24/19 9:00:00 CDT, Duration: 30 day, Stop date: 03/25/19 21:00:00 CDT, 0Notes: (Same as: Lantus) Do not hold insulin without contacting prescriber WASTE: F/P - Black; E - [employer] Trash Bin "single patient use only" Stable for 28 days at room temperature Expires in days from Date No Longer Active 02/24/2019 [facility] 120 ACTUAT Albuterol 0.1 MG/ACTUAT / Ipratropium [place] 0.02 MG/ACTUAT Metered Dose Inhaler [Combivent 20/100] 1 puff, Route: INHALATION, Drug Form: AERO, Dosing Weight 77.273, kg, QID, Start date: 02/24/19 9:00:00 CDT, Duration: 30 day, Stop date: 03/25/19 21:00:00 CDT No Longer Active 02/24/2019 [facility] DuoNeb inhalation solution 3 mL, Route: NEB, Drug Form: SOLN, RQID, Start date: 02/24/19 7:00:00 CDT, Duration: 30 day, Stop date: 03/25/19 19:00:00 CDT, 0Notes: (Same as: Duoneb) No Longer Active 02/24/2019 [facility] Insulin Lispro 2 unit, 0.02 mL, Route: SUB-Q, Drug form: SOLN, TID-Before Meals, Dosing Weight 77.273, kg, PRN Blood Glucose Results, Start date: 02/24/19 0:26:00 CDT, Duration: 30 day, Stop date: 03/26/19 0:25:00 CDT, 0Notes: (Same as: Humalog) Roll in palms of hands gently; Do not shake vigorously. WASTE: F/P - Black; E - [employer] Trash Bin Stable for 28 days at room temperature. Expires in days from Date No Longer Active 02/24/2019 [facility] Glucagon 1 mg, Route: IM, Drug form: PDR/INJ, PRN, Dosing Weight 77.273, kg, PRN Blood Glucose Results, Start date: 02/24/19 0:26:00 CDT, Duration: 30 day, Stop date: 03/26/19 0:25:00 CDT, 0 No Longer Active 02/24/2019 [facility] Dextrose 50% Syringe 25 gm, 50 mL, Route: IVP, Drug Form: INJ, Dosing Weight 77.273, kg, PRN, PRN Blood Glucose Results, Start date: 02/24/19 0:26:00 CDT, Duration: 30 day, Stop date: 03/26/19 0:25:00 CDT, 0 No Longer Active 02/24/2019 [facility] 200 ACTUAT Albuterol 0.09 MG/ACTUAT Metered Dose Inhaler [ProAir HFA] 2.49 mg, 3 mL, Route: NEB, Drug Form: SOLN, Dosing Weight 77.273, kg, RQ6H, PRN Wheezing, Start date: 02/23/19 22:14:00 CDT, Duration: 30 day, Stop date: 03/25/19 22:13:00 CDT, 0Notes: SEE RT DOCUMENTATION (Same as: Proventil) No Longer Active 02/24/2019 [facility] Combivent Respimat 1 puff, INHALATION, QID, 0 Refill(s) Active 02/24/2019 [facility] insulin detemir 100 UNT/ML Injectable Solution [Levemir] 50 units, SUB-Q, BID, # 10 ml, 0 Refill(s) Active 02/24/2019 [facility] Aspirin 325 mg, 1 tab, Route: PO, Drug form: TAB, ONCE, Dosing Weight 77.273, kg, Priority: STAT, Start date: 02/23/19 16:37:00 CDT, Stop date: 02/23/19 16:37:00 CDT, 0Notes: Take with food. Inactive 02/23/2019 [facility] Insulin regular 10 unit, Route: IVP, ONCE, Dosing Weight 77.273, kg, Priority: STAT, Start date: 02/23/19 15:25:00 CDT, Stop date: 02/23/19 15:25:00 CDT Inactive 02/23/2019 [facility] Ondansetron 4 mg, Route: IVP, Drug form: INJ, ONCE, Dosing Weight 77.273, kg, Priority: STAT, Start date: 02/23/19 12:54:00 CDT, Stop date: 02/23/19 12:54:00 CDT Inactive 02/23/2019 [facility] Morphine 4 mg, Route: IVP, ONCE, Dosing Weight 77.273, kg, Priority: STAT, Start date: 02/23/19 12:54:00 CDT, Stop date: 02/23/19 12:54:00 CDT Inactive 02/23/2019 [facility] Sodium Chloride 0.9% (Bolus) IV 2,318.19 mL, 2,000 ml/hr, Route: IV, ONCE, Priority: STAT, Dosing Weight 77.273 kg, Start date: 02/23/19 12:53:00 CDT, Stop date: 02/23/19 12:53:00 CDT, Sepsis dose. Inactive 02/23/2019 [facility] Sulfamethoxazole 800 MG / Trimethoprim 160 MG Oral Tablet [Bactrim] 1 tab, PO, BID, X 7 day, # 14 tab, 0 Refill(s) No Longer Active 09/09/2018 [facility] insulin detemir 100 UNT/ML Injectable Solution [Levemir] 10 unit, SUB-Q, BID, # 10 ml, 0 Refill(s) No Longer Active 09/09/2018 [facility] Saline Flush 0.9% 10 mL, Route: IVP, Drug Form: INJ, Dosing Weight 77.273, kg, PRN, PRN Line Flush, Start date: 09/08/18 16:18:00 [employer], Duration: 30 day, Stop date: 10/08/18 16:17:00 CSTNotes: (Same as: BD Posiflush) Inactive 09/08/2018 [facility] Kayexalate 15 gm, 60 mL, Route: PO, Drug form: SUSP, ONCE, Dosing Weight 77.273, kg, Start date: 08/12/18 7:41:00 [employer], Stop date: 08/12/18 7:41:00 CSTNotes: (sodium polystyrene sulfonate 15 gm/60 ml CLAUDINE) Shake well before use. (Same as: Kayexalate, SPS) No Longer Active 08/12/2018 [facility] Lyrica 150 mg, 2 cap, Route: PO, Drug form: CAP, Q12H, Dosing Weight 77.273, kg, Start date: 08/11/18 21:00:00 [employer], Duration: 30 day, Stop date: 09/10/18 9:00:00 CSTNotes: (Same as: Lyrica) No Longer Active 08/12/2018 [facility] 24 HR Metoprolol Tartrate 50 MG Extended Release Tablet [Toprol] 50 mg, 1 tab, Route: PO, Drug form: ERTAB, Daily, Start date: 08/11/18 14:37:00 [employer], Duration: 30 day, Stop date: 09/10/18 9:00:00 CSTNotes: (Same as: Toprol XL) May split tab, but do not crush. No Longer Active 08/11/2018 [facility] Ibuprofen 200 mg, 1 tab, Route: PO, Drug form: TAB, Q6H, Dosing Weight 77.273, kg, PRN Chest Pain, Start date: 08/11/18 11:11:00 [employer], Duration: 30 day, Stop date: 09/10/18 11:10:00 CSTNotes: (Same as: Advil) Give with food. No Longer Active 08/11/2018 [facility] Calcium Chloride 0.0014 MEQ/ML / Potassium Chloride 0.004 MEQ/ML / Sodium Chloride 0.103 MEQ/ML / Sodium Lactate 0.028 MEQ/ML Injectable Solution 1,000 mL, Rate: 125 ml/hr, Infuse over: 8 hr, Route: IV, Dosing Weight 77.273 kg, Total Volume: 1,000, Start date: 08/11/18 11:08:00 [employer], Duration: 30 day, Stop date: 09/10/18 11:07:00 [employer], 1.89, m2 No Longer Active 08/11/2018 [facility] venlafaxine 75 mg, 1 cap, Route: PO, Drug form: ERCAP, Daily, Dosing Weight 68.182, kg, Start date: 08/11/18 9:00:00 [employer], Duration: 30 day, Stop date: 09/09/18 9:00:00 CSTNotes: Do not open, crush, or chew. (Same As: Effexor XR) No Longer Active 08/11/2018 [facility] Insulin Glargine 20 unit, 0.2 mL, Route: SUB-Q, Drug form: SOLN, Daily, Dosing Weight 68.182, kg, Start date: 08/11/18 9:00:00 [employer], Duration: 30 day, Stop date: 09/09/18 9:00:00 CSTNotes: (Same as: Lantus) Do not hold insulin without contacting prescriber WASTE: F/P - Black; E - Municipal Trash Bin "single patient use only" No Longer Active 08/11/2018 [facility] Aspirin 81 MG Chewable Tablet 81 mg, 1 tab, Route: PO, Drug form: CHEWTAB, Daily, Dosing Weight 68.182, kg, Start date: 08/11/18 9:00:00 [employer], Duration: 30 day, Stop date: 09/09/18 9:00:00 CSTNotes: Take with food. No Longer Active 08/11/2018 [facility] Insulin Lispro 2 unit, 0.02 mL, Route: SUB-Q, Drug form: SOLN, ONCE, Dosing Weight 77.273, kg, Start date: 08/10/18 21:27:00 [employer], Stop date: 08/10/18 21:27:00 CSTNotes: (Same as: Humalog ) Roll in palms of hands ge ntly; Do not shake `vigorously. "Single Patient Use Only " WASTE: F/P - Black; E - Municipal Trash Bin Stable for 28 days at room temperature. Expires in days from Date Inactive 08/11/2018 [facility] Pravastatin 40 mg, 2 tab, Route: PO, Drug form: TAB, Bedtime, Dosing Weight 68.182, kg, Start date: 08/10/18 21:00:00 [employer], Duration: 30 day, Stop date: 09/08/18 21:00:00 CSTNotes: (Same as: Pravachol) No Longer Active 08/11/2018 [facility] heparin 5,000 unit, 1 mL, Route: SUB-Q, Drug form: INJ, Q12H, Dosing Weight 68.182, kg, Start date: 08/10/18 21:00:00 [employer], Duration: 30 day, Stop date: 09/09/18 9:00:00 CSTNotes: porcine heparin No Longer Active 08/11/2018 [facility] quetiapine 25 mg, 1 tab, Route: PO, Drug form: TAB, BID, Dosing Weight 68.182, kg, Start date: 08/10/18 17:00:00 [employer], Duration: 30 day, Stop date: 09/09/18 9:00:00 CSTNotes: (Same as: SEROquel) No Longer Active 08/10/2018 [facility] Lisinopril 20 mg, 1 tab, Route: PO, Drug form: TAB, Daily, Dosing Weight 68.182, kg, Start date: 08/10/18 16:00:00 [employer], Duration: 30 day, Stop date: 09/09/18 9:00:00 CSTNotes: (Same as: Prinivil, Zestril) No Longer Active 08/10/2018 [facility] Hydralazine 20 mg, 1 mL, Route: IVP, Drug form: INJ, Q4H, Dosing Weight 68.182, kg, PRN Elevated BP, Start date: 08/10/18 12:46:00 [employer], Duration: 30 day, Stop date: 09/09/18 12:45:00 CSTNotes: (Same as: Apresoline) Push over 5 minutes No Longer Active 08/10/2018 [facility] Dextrose 50% Syringe 25 gm, 50 mL, Route: IVP, Drug Form: INJ, Dosing Weight 68.182, kg, PRN, PRN Blood Glucose Results, Start date: 08/10/18 11:52:00 [employer], Duration: 30 day, Stop date: 09/09/18 11:51:00 [employer] No Longer Active 08/10/2018 [facility] Glucagon 1 mg, Route: IM, Drug form: PDR/INJ, PRN, Dosing Weight 68.182, kg, PRN Blood Glucose Results, Start date: 08/10/18 11:52:00 [employer], Duration: 30 day, Stop date: 09/09/18 11:51:00 [employer] No Longer Active 08/10/2018 [facility] Insulin Lispro 2 unit, 0.02 mL, Route: SUB-Q, Drug form: SOLN, TID-Before Meals, Dosing Weight 68.182, kg, PRN Blood Glucose Results, Start date: 08/10/18 11:52:00 [employer], Duration: 30 day, Stop date: 09/09/18 11:51:0 0 CSTNotes: (Same as: Humalog ) Roll in palms of hands gently; Do not shake `vigorously. "Single Patient Use Only " WASTE: F/P - Black; E - Municipal Trash Bin Stable for 28 days at room temperature. Expires in days from Date No Longer Active 08/10/2018 [facility] potassium phosphate-sodium phosphate 250 mg-280 mg-160 mg oral powder for reconstitution 2 pkt, Route: PO, Drug Form: PDR/REC, Dosing Weight 68.182, kg, PRN, PRN Abnormal Lab Result, For NON-ICU Patients Only, Start date: 08/10/18 11:51:00 [employer], Duration: 30 day, Stop date: 09/09/18 11:50:00 CSTNotes: (Same as: Phos-NaK) Each 1.5 gm pkt has 250mg phosphorous. Mix w/2.5oz water and stir. No Longer Active 08/10/2018 [facility] potassium phosphate 15 mmol, 5 mL, Route: IVPB, PRN, Dosing Weight 68.182, kg, PRN Abnormal Lab Result, For NON-ICU Patients Only., Start date: 08/10/18 11:51:00 [employer], Duration: 30 day, Stop date: 09/09/18 11:50:00 CSTNotes: (Same as: K Phosphate.) Do not infuse phosphorous concurrently in the same line as TPN or IVF that contains calcium. For double lumen central lines, phosphorous may be infused in a separate lumen from TPN. 1 mMol phoshate has 1.47 mEq potassium Infuse over 4 hours No Longer Active 08/10/2018 [facility] Potassium Chloride 10 mEq, 100 mL, Route: IVPB, Drug form: INJ, PRN, Dosing Weight 68.182, kg, PRN Abnormal Lab Result, For NON-ICU Patients Only, Start date: 08/10/18 11:51:00 [employer], Duration: 30 day, Stop date: 09/09/18 11:50:00 CSTNotes: Infuse at a rate of 10 mEq/hr. (Same as: KCL) No Longer Active 08/10/2018 [facility] Magnesium Sulfate 2 gm, 50 mL, Route: IVPB, Drug form: INJ, PRN, Dosing Weight 68.182, kg, PRN Abnormal Lab Result, For NON-ICU Patients Only., Start date: 08/10/18 11:51:00 [employer], Duration: 30 day, Stop date: 09/09/18 11:50:00 CSTNotes: WASTE: F/P - Sink; E - Municipal Trash Bin No Longer Active 08/10/2018 [facility] sodium phosphate 15 mmol, 5 mL, Route: IVPB, PRN, Dosing Weight 68.182, kg, PRN Abnormal Lab Result, For NON-ICU Patients Only., Start date: 08/10/18 11:51:00 [employer], Duration: 30 day, Stop date: 09/09/18 11:50:00 CSTNotes: Infuse over 4 hour. Do not infuse phosphorous concurrently in the same line as TPN or IVF that contains calcium. For double lumen central lines, phosphorous may be infused in a separate lumen from TPN. No Longer Active 08/10/2018 [facility] Magnesium Oxide 800 mg, 2 tab, Route: PO, Drug form: TAB, PRN, Dosing Weight 68.182, kg, PRN Abnormal Lab Result, For NON-ICU Patients Only., Start date: 08/10/18 11:51:00 [employer], Duration: 30 day, Stop date: 09/09/18 11:50:00 CSTNotes: (Same as: Mag-Ox 400) Magnesium oxide [id number] elemental magnesium Dose=____mg magnesium oxide (___mg elemental magnesium) No Longer Active 08/10/2018 [facility] Calcium Gluconate 2 gm, 100 mL, Route: IVPB, Drug form: INJ, PRN, Dosing Weight 68.182, kg, PRN Abnormal Lab Result, For NON-ICU Patients Only., Start date: 08/10/18 11:51:00 [employer], Duration: 30 day, Stop date: 09/09/18 11:50:00 CSTNotes: WASTE: F/P - Sink; E - Municipal Trash Bin No Longer Active 08/10/2018 [facility] Calcium Chloride 0.0014 MEQ/ML / Potassium Chloride 0.004 MEQ/ML / Sodium Chloride 0.103 MEQ/ML / Sodium Lactate 0.028 MEQ/ML Injectable Solution 1,000 mL, Rate: 100 ml/hr, Infuse over: 10 hr, Route: IV, Dosing Weight 68.182 kg, Total Volume: 1,000, Start date: 08/10/18 11:50:00 [employer], Duration: 30 day, Stop date: 09/09/18 11:49:00 [employer], 1.8, m2 No Longer Active 08/10/2018 [facility] Ondansetron 4 mg, 2 mL, Route: IVP, Drug form: INJ, Q8H, Dosing Weight 68.182, kg, PRN Nausea & Vomiting, Start date: 08/10/18 11:47:00 [employer], Duration: 30 day, Stop date: 09/09/18 11:46:00 CSTNotes: (Same as: [place]) MEDICATION WASTE Product Size: 4 mg Product Wasted: ___ mg No Longer Active 08/10/2018 [facility] Bisacodyl 10 mg, 1 supp, Route: WI, Drug form: SUPP, Daily, Dosing Weight 68.182, kg, PRN Constipation, Start date: 08/10/18 11:47:00 [employer], Duration: 30 day, Stop date: 09/09/18 11:46:00 CSTNotes: (Same As: Dulcolax, Bisco-Lax) No Longer Active 08/10/2018 [facility] Dextrose 50% Syringe 25 mL, Route: IVP, Dosing Weight 68.182, kg, PRN, PRN Blood Glucose Results, Start date: 08/10/18 11:47:00 [employer], Duration: 30 day, Stop date: 09/09/18 11:46:00 [employer] Inactive 08/10/2018 [facility] Acetaminophen 650 mg, 2 tab, Route: PO, Drug form: TAB, Q4H, Dosing Weight 68.182, kg, PRN For Temp > 100.4 F, Start date: 08/10/18 11:47:00 [employer], Duration: 30 day, Stop date: 09/09/18 11:46:00 CSTNotes: Do not exceed 4 gm/day. (Same as: Tylenol) No Longer Active 08/10/2018 [facility] Glucagon 1 mg, Route: IM, PRN, Dosing Weight 68.182, kg, PRN Blood Glucose Results, Start date: 08/10/18 11:47:00 [employer], Duration: 30 day, Stop date: 09/09/18 11:46:00 [employer] Inactive 08/10/2018 [facility] NS (Bolus) IV 1,000 mL, 1,000 ml/hr, Infuse Over: 1 hr, Route: IV, ONCE, Priority: STAT, Dosing Weight 68.182 kg, Start date: 08/10/18 11:18:00 [employer], Stop date: 08/10/18 11:18:00 [employer] Inactive 08/10/2018 [facility] Saline Flush 0.9% 10 mL, Route: IVP, Drug Form: INJ, Dosing Weight 68.182, kg, PRN, PRN Line Flush, Start date: 08/10/18 10:02:00 [employer], Duration: 30 day, Stop date: 09/09/18 10:01:00 CSTNotes: (Same as: BD Posiflush) No Longer Active 08/10/2018 [facility] Imodium A-D 2 mg, 1 cap, Route: PO, Drug form: CAP, Q4H, Dosing Weight 76.008, kg, Start date: 08/02/18 12:00:00 [employer], Duration: 30 day, Stop date: 09/01/18 8:00:00 CSTNotes: (Same as: Imodium) MAX adult dose is 8 caps/day Inactive 08/02/2018 [facility] loperamide 2 mg oral capsule 2 mg=1 cap, PO, Q4H, X 7 day, # 42 cap, 0 Refill(s), [id number] No Longer Active 08/02/2018 [facility] Metronidazole 500 MG Oral Tablet 500 mg=1 tab, PO, [id number], X 12 day, # 36 tab, 0 Refill(s), Pharmacy: [facility] [id number] No Longer Active 08/02/2018 [facility] ciprofloxacin 500 mg oral tablet 500 mg=1 tab, PO, [id number], X 12 day, # 24 tab, 0 Refill(s), Pharmacy: [facility] [id number] No Longer Active 08/02/2018 [facility] Flagyl 500 mg, 1 tab, Route: PO, Drug form: TAB, ABXQ8H, Dosing Weight 76.008, kg, Start date: 08/02/18 11:00:00 [employer], Duration: 10 day, Stop date: 08/12/18 3:00:00 [employer], ABX Indication: Intra-abdominal InfectionNotes: (Same as: Flagyl) Take with food/ avoid alcohol Inactive 08/02/2018 [facility] Cipro 500 mg, 1 tab, Route: PO, Drug form: TAB, [id number], Dosing Weight 76.008, kg, Start date: 08/02/18 11:00:00 [employer], Duration: 10 day, Stop date: 08/11/18 23:00:00 [employer], ABX Indication: Intra-abdominal Infect ionNotes: May interfere w/enteral feedings - Take 1 hr before or 2 hrs after antacids, dairy pdt & minerals. On empty stomach. Inactive 08/02/2018 [facility] Sodium Chloride 0.9% (Bolus) IV 500 mL, 500 ml/hr, Infuse Over: 1 hr, Route: IV, 500, Drug form: INJ, ONCE, Priority: STAT, Dosing Weight 76.008 kg, Start date: 08/01/18 10:56:00 [employer], Stop date: 08/01/18 10:56:00 [employer] Inactive 08/01/2018 [facility] Pravastatin 40 mg, 2 tab, Route: PO, Drug form: TAB, Bedtime, Dosing Weight 76.008, kg, Start date: 07/31/18 21:00:00 [employer], Duration: 30 day, Stop date: 08/29/18 21:00:00 CSTNotes: (Same as: Pravachol) No Longer Active 08/01/2018 [facility] Protonix 40 mg, 1 tab, Route: PO, Drug form: ECTAB, Before Dinner, Dosing Weight 75, kg, Start date: 07/31/18 16:30:00 [employer], Duration: 30 day, Stop date: 08/29/18 16:30:00 CSTNotes: Tablet should not be chewed or crushed. (Same as: Protonix) No Longer Active 07/31/2018 [facility] metoprolol extended release 50 mg, 1 tab, Route: PO, Drug form: ERTAB, Daily, Start date: 07/31/18 9:00:00 [employer], Duration: 30 day, Stop date: 08/29/18 9:00:00 CSTNotes: (Same as: Toprol XL) May split tab, but do not crush. No Longer Active 07/31/2018 [facility] pregabalin 150 mg, 2 cap, Route: PO, Drug form: CAP, BID, Dosing Weight 76.008, kg, Start date: 07/31/18 9:00:00 [employer], Duration: 30 day, Stop date: 08/29/18 21:00:00 CSTNotes: (Same as: Lyrica) No Longer Active 07/31/2018 [facility] quetiapine 25 mg, 1 tab, Route: PO, Drug form: TAB, BID, Dosing Weight 76.008, kg, Start date: 07/31/18 9:00:00 [employer], Duration: 30 day, Stop date: 08/29/18 21:00:00 CSTNotes: (Same as: SEROquel) No Longer Active 07/31/2018 [facility] venlafaxine 75 mg, 1 cap, Route: PO, Drug form: ERCAP, Daily, Dosing Weight 76.008, kg, Start date: 07/31/18 9:00:00 [employer], Duration: 30 day, Stop date: 08/29/18 9:00:00 CSTNotes: Do not open, crush, or chew. (Same As: Effexor XR) No Longer Active 07/31/2018 [facility] Morphine 2 mg, 1 mL, Route: IVP, Drug form: SOLN, Q4H, Dosing Weight 75, kg, PRN Pain Score 7-10, Start date: 07/31/18 3:41:00 [employer], Duration: 30 day, Stop date: 08/30/18 3:40:00 [employer] No Longer Active 07/31/2018 [facility] Insulin Glargine 100 UNT/ML Injectable Solution [Lantus] 20 unit, 0.2 mL, Route: SUB-Q, Drug form: SOLN, Q12H, Dosing Weight 75, kg, Start date: 07/30/18 21:00:00 [employer], Duration: 30 day, Stop date: 08/29/18 9:00:00 CSTNotes: (Same as: Lantus) Do not hold insulin without contacting prescriber WASTE: F/P - Black; E - Municipal Trash Bin "single patient use only" No Longer Active 07/31/2018 [facility] Flagyl 500 mg, Route: IVPB, ABXQ8H, Dosing Weight 75, kg, Start date: 07/30/18 21:00:00 [employer], Duration: 10 day, Stop date: 08/09/18 13:00:00 [employer], ABX Indication: Infectious Diarrhea Inactive 07/31/2018 [facility] Ceftriaxone 2 gm, Route: IVPB, Drug form: PDR/INJ, [id number], Dosing Weight 75, kg, Start date: 07/30/18 21:00:00 [employer], Duration: 10 day, Stop date: 08/08/18 21:00:00 [employer], ABX Indication: Infectious Diarrhea Inactive 07/31/2018 [facility] Zosyn 3.375 gm, Route: IVPB, ABXQ8H, Dosing Weight 75, kg, CrCl >=20 ml/min infuse over 4 hours, Start date: 07/30/18 21:00:00 [employer], Duration: 10 day, Stop date: 08/09/18 13:00:00 [employer], ABX Indication: Infectious DiarrheaNotes: (Same as: Zosyn) Dosing based on Piperacillin component MEDICATION WASTE Product Size: 3375 mg Product Wasted: ___ mg No Longer Active 07/31/2018 [facility] Insulin Lispro 2 unit, 0.02 mL, Route: SUB-Q, Drug form: SOLN, Bedtime, Dosing Weight 75, kg, PRN Blood Glucose Results, Start date: 07/30/18 20:19:00 [employer], Duration: 30 day, Stop date: 08/29/18 20:18:00 CSTNotes: (Same as: Humalog ) Roll in palms of hands gently; Do not shake `vigorously. "Single Patient Use Only " WASTE: F/P - Black; E - Municipal Trash Bin Stable for 28 days at room temperature. Expires in days from Date No Longer Active 07/31/2018 [facility] Dextrose 50% Syringe 25 gm, 50 mL, Route: IVP, Drug Form: INJ, Dosing Weight 75, kg, PRN, PRN Blood Glucose Results, Start date: 07/30/18 20:19:00 [employer], Duration: 30 day, Stop date: 08/29/18 20:18:00 [employer] No Longer Active 07/31/2018 [facility] Glucagon 1 mg, Route: IM, Drug form: PDR/INJ, PRN, Dosing Weight 75, kg, PRN Blood Glucose Results, Start date: 07/30/18 20:19:00 [employer], Duration: 30 day, Stop date: 08/29/18 20:18:00 [employer] No Longer Active 07/31/2018 [facility] normal saline 0.9% IV 1,000 mL 1,000 mL, Rate: 100 ml/hr, Infuse over: 10 hr, Route: IV, Dosing Weight 75 kg, Total Volume: 1,000, Start date: 07/30/18 19:04:00 [employer], Duration: 10 hr, Stop date: 07/31/18 5:03:00 [employer], 1.86, m2 No Longer Active 07/31/2018 [facility] Labetalol 10 mg, 2 mL, Route: IVP, Drug form: INJ, Q6H, Dosing Weight 75, kg, PRN Hypertension, Start date: 07/30/18 19:04:00 [employer], Duration: 30 day, Stop date: 08/29/18 19:03:00 CSTNotes: (Same as: Normodyne, Trandate) Push over 2 minutes Give bolus over 2-3 minutes. No Longer Active 07/31/2018 [facility] Hydralazine 10 mg, 0.5 mL, Route: IVP, Drug form: INJ, Q4H, Dosing Weight 75, kg, PRN Hypertension, Start date: 07/30/18 19:04:00 [employer], Duration: 30 day, Stop date: 08/29/18 19:03:00 CSTNotes: (Same as: Apresoline) Push over 5 minutes No Longer Active 07/31/2018 [facility] Lactulose 667 MG/ML Oral Solution 20 gm, 30 ml, Route: PO, Drug form: SYRP, Q6H, Dosing Weight 75, kg, PRN Constipation, Start date: 07/30/18 19:04:00 [employer], Duration: 30 day, Stop date: 08/29/18 19:03:00 CSTNotes: (Same as:Chronulac) No Longer Active 07/31/2018 [facility] Morphine 2 mg, 0.5 mL, Route: IVP, Drug form: SOLN, Q6H, Dosing Weight 75, kg, PRN Pain Score 7-10, Start date: 07/30/18 19:04:00 [employer], Duration: 30 day, Stop date: 08/29/18 19:03:00 CSTNotes: (Same as:MORPhine Sulfate) No Longer Active 07/31/2018 [facility] Dextromethorphan Hydrobromide 1 MG/ML / Guaifenesin 20 MG/ML Oral Solution 5 mL, Route: PO, Drug Form: LIQ, Dosing Weight 75, kg, QID, PRN Cough, Start date: 07/30/18 19:04:00 [employer], Duration: 30 day, Stop date: 08/29/18 19:03:00 CSTNotes: (dextromethorphan-guaifenesin 10-100/5 ml LIQ) (Same as: Robitussin-DM) No Longer Active 07/31/2018 [facility] Clonidine Hydrochloride 0.1 MG Oral Tablet 0.1 mg, 1 tab, Route: PO, Drug form: TAB, Q6H, Dosing Weight 75, kg, PRN Hypertension, Start date: 07/30/18 19:04:00 [employer], Duration: 30 day, Stop date: 08/29/18 19:03:00 CSTNotes: (Same As: Catapres) No Longer Active 07/31/2018 [facility] Dextrose 50% Syringe 25 gm, 50 mL, Route: IVP, Drug Form: INJ, Dosing Weight 75, kg, PRN, PRN Blood Glucose Results, Start date: 07/30/18 19:04:00 [employer], Duration: 30 day, Stop date: 08/29/18 19:03:00 [employer] Inactive 07/31/2018 [facility] Glucagon 1 mg, Route: IM, Drug form: PDR/INJ, PRN, Dosing Weight 75, kg, PRN Blood Glucose Results, Start date: 07/30/18 19:04:00 [employer], Duration: 30 day, Stop date: 08/29/18 19:03:00 [employer] Inactive 07/31/2018 [facility] Melatonin 3 mg, 1 tab, Route: PO, Drug form: TAB, Bedtime, Dosing Weight 75, kg, PRN Insomnia, Start date: 07/30/18 19:04:00 [employer], Duration: 30 day, Stop date: 08/29/18 19:03:00 CSTNotes: (Same as: Melatonin) No Longer Active 07/31/2018 [facility] Acetaminophen 500 mg, 1 tab, Route: PO, Drug form: TAB, BID, Dosing Weight 75, kg, PRN Pain 1-3/Temp > 100.4 F, Start date: 07/30/18 19:04:00 [employer], Duration: 30 day, Stop date: 08/29/18 19:03:00 CSTNotes: Max acetaminophen 4000 mg/day (4 gm/day). (Same as: Tylenol Extra Strength) No Longer Active 07/31/2018 [facility] Ondansetron 4 mg, 2 mL, Route: IVP, Drug form: INJ, Q8H, Dosing Weight 75, kg, PRN Nausea & Vomiting, Start date: 07/30/18 19:04:00 [employer], Duration: 30 day, Stop date: 08/29/18 19:03:00 CSTNotes: (Same as: Zofran) MEDICATION WASTE Product Size: 4 mg Product Wasted: ___ mg No Longer Active 07/31/2018 [facility] Rocephin 1 gm, Route: IVPB, Drug form: PDR/INJ, ONCE, Dosing Weight 75, kg, Priority: STAT, Start date: 07/30/18 18:27:00 [employer], Stop date: 07/30/18 18:27:00 [employer], ABX Indication: Urinary Tract Infection Inactive 07/31/2018 [facility] Visipaque 320 mg/mL injectable solution 100 mL, Route: IVP, Dosing Weight 75, kg, ONCE, GFR 31 - 45 mL/min, STAT, Start date: 07/30/18 16:55:00 [employer], Stop date: 07/30/18 16:55:00 [employer] Inactive 07/30/2018 [facility] Protonix 40 mg, Route: IVP, ONCE, Dosing Weight 75, kg, Priority: STAT, Start date: 07/30/18 15:08:00 [employer], Stop date: 07/30/18 15:08:00 [employer] Inactive 07/30/2018 [facility] Benadryl 25 mg, 1 tab, Route: PO, Drug form: TAB, ONCE, Dosing Weight 75, kg, Priority: STAT, Start date: 07/30/18 14:50:00 [employer], Stop date: 07/30/18 14:50:00 [employer] Inactive 07/30/2018 [facility] NS (Bolus) IV 1,000 mL, 1,000 ml/hr, Infuse Over: 1 hr, Route: IV, 1,000, Drug form: INJ, ONCE, Priority: STAT, Dosing Weight 75 kg, Start date: 07/30/18 14:50:00 [employer], Stop date: 07/30/18 14:50:00 [employer] Inactive 07/30/2018 [facility] Reglan 10 mg, 2 mL, Route: IVP, Drug form: INJ, ONCE, Dosing Weight 75, kg, Priority: STAT, Start date: 07/30/18 14:50:00 [employer], Stop date: 07/30/18 14:50:00 CSTNotes: (Same as: Reglan) Inactive 07/30/2018 [facility] Ondansetron 4 mg, 2 mL, Route: IVP, Drug form: INJ, ONCE, Dosing Weight 77.273, kg, Priority: STAT, Start date: 07/30/18 14:19:00 [employer], Stop date: 07/30/18 14:19:00 CSTNotes: (Same as: Zofran) MEDICATION WASTE Product Size: 4 mg Product Wasted: ___ mg Inactive 07/30/2018 [facility] Saline Flush 0.9% 10 mL, Route: IVP, Drug Form: INJ, Dosing Weight 77.273, kg, PRN, PRN Line Flush, Start date: 07/30/18 14:19:00 [employer], Duration: 30 day, Stop date: 08/29/18 14:18:00 CSTNotes: (Same as: BD Posiflush) No Longer Active 07/30/2018 [facility] Sodium Chloride 0.9% (Bolus) IV 1,000 mL, 1000 ml/hr, Infuse Over: 1 hr, Route: IV, 1,000, Drug form: INJ, ONCE, Priority: STAT, Dosing Weight 77.273 kg, Start date: 07/30/18 14:19:00 [employer], Stop date: 07/30/18 14:19:00 [employer] Inactive 07/30/2018 [facility] ketOROLAC 15 mg/mL injectable solution 15 mg, Route: IVP, Drug form: INJ, ONCE, Dosing Weight 77.273, kg, Priority: STAT, Start date: 04/08/18 17:32:00 CDT, Stop date: 04/08/18 17:32:00 CDT Inactive 04/08/2018 [facility] Saline Flush 0.9% 10 mL, Route: IVP, Drug Form: INJ, Dosing Weight 77.273, kg, PRN, PRN Line Flush, Start date: 04/08/18 16:21:00 CDT, Duration: 30 day, Stop date: 05/08/18 16:20:00 CDTNotes: (Same as: BD Posiflush) Inactive 04/08/2018 [facility] vancomycin 1 g intravenous injection 750 mg, IV, Q18H, # 10 bag, 0 Refill(s), Pharmacy: [facility] [id number] No Longer Active 03/30/2018 [facility] Piperacillin 3000 MG / tazobactam 375 MG Injection [Zosyn] 3.375 gm, IV, Q8H, X 10 day, # 30 bag, 0 Refill(s), Pharmacy: [facility] [id number] No Longer Active 03/30/2018 [facility] venlafaxine 37.5 mg oral capsule, extended release 75 mg=2 cap, PO, Daily, 0 Refill(s) Active 03/30/2018 [facility] Insulin Lispro 100 UNT/ML Injectable Solution 5 unit=0.05 mL, SUB-Q, TID-Before Meals, PRN Blood Glucose Results, 0 Refill(s) No Longer Active 03/30/2018 [facility] pravastatin 20 mg oral tablet 40 mg=2 tab, PO, Bedtime, 0 Refill(s) Active 03/30/2018 [facility] amLODIPine 5 mg oral tablet 5 mg=1 tab, PO, BID, 0 Refill(s) No Longer Active 03/30/2018 [facility] Pravastatin 40 mg, 2 tab, Route: PO, Drug form: TAB, Bedtime, Dosing Weight 77.273, kg, Priority: Routine, Start date: 03/29/18 21:00:00 CDT, Duration: 30 day, Stop date: 04/27/18 21:00:00 CDTNotes: (Same as: Pravachol) No Longer Active 03/30/2018 [facility] Norvasc 5 mg, 1 tab, Route: PO, Drug form: TAB, BID, Dosing Weight 77.273, kg, Start date: 03/29/18 17:00:00 CDT, Duration: 30 day, Stop date: 04/28/18 9:00:00 CDTNotes: (Same as: Norvasc) No Longer Active 03/29/2018 [facility] Aspirin 81 mg, 1 tab, Route: PO, Drug form: ECTAB, Daily, Dosing Weight 77.273, kg, Start date: 03/28/18 9:00:00 CDT, Duration: 30 day, Stop date: 04/26/18 9:00:00 CDTNotes: Do not crush or chew. (Same As: Ecotrin) No Longer Active 03/28/2018 [facility] Levemir 30 unit, Route: SUB-Q, BID, Dosing Weight 77.273, kg, Start date: 03/28/18 9:00:00 CDT, Duration: 30 day, Stop date: 04/26/18 17:00:00 CDT No Longer Active 03/28/2018 [facility] insulin glargine 30 unit, 0.3 mL, Route: SUB-Q, Drug form: SOLN, BID, Start date: 03/28/18 9:00:00 CDT, Duration: 30 day, Stop date: 04/26/18 17:00:00 CDTNotes: (Same as: Lantus) Do not hold insulin without contacting prescriber WASTE: F/P - Black; E - Municipal Trash Bin "single patient use only" No Longer Active 03/28/2018 [facility] venlafaxine extended release 75 mg, 2 cap, Route: PO, Drug form: ERCAP, Daily, Dosing Weight 77.273, kg, Start date: 03/28/18 9:00:00 CDT, Duration: 30 day, Stop date: 04/26/18 9:00:00 CDTNotes: Do not open, crush, or chew. (Same As: Effexor XR) No Longer Active 03/28/2018 [facility] pregabalin 150 mg, 2 cap, Route: PO, Drug form: CAP, BID, Dosing Weight 77.273, kg, Start date: 03/28/18 9:00:00 CDT, Duration: 30 day, Stop date: 04/26/18 17:00:00 CDTNotes: (Same as: Lyrica) No Longer Active 03/28/2018 [facility] Spironolactone 50 mg, Route: PO, Drug form: TAB, Daily, Dosing Weight 77.273, kg, Start date: 03/28/18 9:00:00 CDT, Duration: 30 day, Stop date: 04/26/18 9:00:00 CDT No Longer Active 03/28/2018 [facility] quetiapine 25 mg, 1 tab, Route: PO, Drug form: TAB, BID, Dosing Weight 77.273, kg, Start date: 03/28/18 9:00:00 CDT, Duration: 30 day, Stop date: 04/26/18 17:00:00 CDTNotes: (Same as: SEROquel) No Longer Active 03/28/2018 [facility] Vancomycin Route: IVPB, Q8H, Dosing Weight 77.273, kg, Start date: 03/28/18 0:00:00 CDT, Duration: 14 day, Stop date: 04/10/18 16:00:00 CDT, ABX Indication: Skin/Soft Tissue InfectionNotes: TIME CRITICAL MEDICATION (Same As: Vancocin) Infusion rate 2001 mg: infuse over 2.5 hours For adult patients only: Round to nearest 250 mg per Medical Staff approval MEDICATION WASTE Product Size: 1000 mg Product Wasted: ___ mg No Longer Active 03/28/2018 [facility] heparin sodium, porcine 2500 UNT/ML Injectable Solution 5,000 unit, 1 mL, Route: SUB-Q, Drug form: INJ, Q8H, Dosing Weight 77.273, kg, Start date: 03/28/18 0:00:00 CDT, Duration: 30 day, Stop date: 04/26/18 16:00:00 CDTNotes: porcine heparin No Longer Active 03/28/2018 [facility] Gentamicin Sulfate (NURSING HOME) 1 MG/ML Topical Cream 1 appl, Route: TOP, Q24H, Drug form: CRM, Start date: 03/27/18 22:00:00 CDT, Duration: 30 day, Stop date: 04/25/18 22:00:00 CDTNotes: (Same as: Garamycin) No Longer Active 03/28/2018 [facility] Hydromorphone 2 mg, 1 tab, Route: PO, Drug form: TAB, Q4H, Dosing Weight 77.273, kg, PRN Pain Score 7-10, Start date: 03/27/18 21:52:00 CDT, Duration: 30 day, Stop date: 04/26/18 21:51:00 CDTNotes: (Same as: Dilau did) No Longer Active 03/28/2018 [facility] 200 ACTUAT Albuterol 0.09 MG/ACTUAT Metered Dose Inhaler [ProAir HFA] 2 puff, Route: INHALER, Drug Form: AERO/A, Dosing Weight 77.273, kg, Q6H, PRN Wheezing, Start date: 03/27/18 21:52:00 CDT, Duration: 30 day, Stop date: 04/26/18 21:51:00 CDTNotes: Albuterol 90 microgram/inh 8gm HFA WASTE: Aerosol - Return to Pharmacy Same as: Ventemiliano Proventil No Longer Active 03/28/2018 [facility] Dilaudid 1 mg, Route: PO, Drug form: TAB, ONCE, Dosing Weight 77.273, kg, Start date: 03/27/18 20:50:00 CDT, Stop date: 03/27/18 20:50:00 CDT Inactive 03/28/2018 [facility] Insulin Lispro 1 unit, 0.01 mL, Route: SUB-Q, Drug form: SOLN, TID-Before Meals, Dosing Weight 77.273, kg, PRN Blood Glucose Results, Start date: 03/27/18 19:12:00 CDT, Duration: 30 day, Stop date: 04/26/18 19:11:0 0 CDTNotes: (Same as: Humalog ) Roll in palms of hands gently; Do not shake `vigorously. "Single Patient Use Only " WASTE: F/P - Black; E - Municipal Trash Bin Stable for 28 days at room temperature. Expires in days from Date No Longer Active 03/28/2018 [facility] Dextrose 50% Syringe 25 gm, 50 mL, Route: IVP, Drug Form: INJ, Dosing Weight 77.273, kg, PRN, PRN Blood Glucose Results, Start date: 03/27/18 19:12:00 CDT, Duration: 30 day, Stop date: 04/26/18 19:11:00 CDT No Longer Active 03/28/2018 [facility] Glucagon 1 mg, Route: IM, Drug form: PDR/INJ, PRN, Dosing Weight 77.273, kg, PRN Blood Glucose Results, Start date: 03/27/18 19:12:00 CDT, Duration: 30 day, Stop date: 04/26/18 19:11:00 CDT No Longer Active 03/28/2018 [facility] Zosyn 3.375 gm, Route: IVPB, ABXQ8H, Dosing Weight 77.273, kg, CrCl >=20 ml/min infuse over 4 hours, Start date: 03/27/18 17:00:00 CDT, Duration: 14 day, Stop date: 04/10/18 9:00:00 CDT, ABX Indication: Skin/Soft Tissue InfectionNotes: (Same as: Zosyn) Dosing based on Piperacillin component MEDICATION WASTE Product Size: 3375 mg Product Wasted: ___ mg No Longer Active 03/27/2018 [facility] metoprolol 50 mg oral tablet, extended release 50 mg=1 tab, PO, Daily, 0 Refill(s) Active 03/27/2018 [facility] Dilaudid 0.5 mg, Route: IVP, ONCE, Dosing Weight 77.273, kg, Priority: STAT, Start date: 03/27/18 14:32:00 CDT, Stop date: 03/27/18 14:32:00 CDT Inactive 03/27/2018 [facility] Morphine 4 mg, Route: IM, ONCE, Dosing Weight 77.273, kg, Priority: STAT, Start date: 03/27/18 13:48:00 CDT, Stop date: 03/27/18 13:48:00 CDT Inactive 03/27/2018 [facility] Morphine 4 mg, Route: IM, ONCE, Dosing Weight 77.273, kg, Priority: STAT, Start date: 03/27/18 13:47:00 CDT, Stop date: 03/27/18 13:47:00 CDT Inactive 03/27/2018 [facility] Cathflo Activase 2 mg injection 1 mg, 1 mL, Route: INJ, Drug form: INJ, ONCE, Dosing Weight 77.273, kg, Start date: 03/27/18 12:45:00 CDT, Stop date: 03/27/18 12:45:00 CDT, Occluded CVAD Notes: "Syringe for catheter clearance or interventional radiology use. Reconstitute each vial of Cathflo Activase with 2.2 ml Sterile Water resulting in a 1 mg/ml solution. (Same as: Activase) MEDICATION WASTE Product Size: 2 mg Product Wasted: ___ mg Inactive 03/27/2018 [facility] Cathflo Activase 2 mg injection 1 mg, 1 mL, Route: INJ, Drug form: INJ, ONCE, Dosing Weight 77.273, kg, Start date: 03/27/18 12:42:00 CDT, Stop date: 03/27/18 12:42:00 CDT, Occluded CVAD Notes: "Syringe for catheter clearance or interventional radiology use. Reconstitute each vial of Cathflo Activase with 2.2 ml Sterile Water resulting in a 1 mg/ml solution. (Same as: Activase) MEDICATION WASTE Product Size: 2 mg Product Wasted: ___ mg Inactive 03/27/2018 [facility] Morphine 4 mg, Route: IVP, ONCE, Dosing Weight 77.273, kg, Priority: STAT, Start date: 03/27/18 12:04:00 CDT, Stop date: 03/27/18 12:04:00 CDT Inactive 03/27/2018 [facility] Metoclopramide 10 mg, Route: IVP, Drug form: INJ, ONCE, Dosing Weight 77.273, kg, Priority: STAT, Start date: 03/27/18 12:04:00 CDT, Stop date: 03/27/18 12:04:00 CDT Inactive 03/27/2018 [facility] Aspirin 324 mg, Route: PO, ONCE, Dosing Weight 77.273, kg, Priority: STAT, Start date: 03/27/18 11:33:00 CDT, Stop date: 03/27/18 11:33:00 CDT Inactive 03/27/2018 [facility] Saline Flush 0.9% 10 mL, Route: IVP, Drug Form: INJ, Dosing Weight 77.273, kg, PRN, PRN Line Flush, Start date: 03/27/18 11:33:00 CDT, Duration: 30 day, Stop date: 04/26/18 11:32:00 CDTNotes: Same as: BD Posiflush Sterile No Longer Active 03/27/2018 [facility] Piperacillin 3000 MG / tazobactam 375 MG Injection [Zosyn] 3.375 gm, IV, Q8H, X 14 day, # 42 bag, 0 Refill(s), Pharmacy: [facility] [id number] No Longer Active 03/25/2018 [facility] hydromorphone 2 mg oral tablet 2 mg=1 tab, PO, Q4H, PRN Pain Score 7-10, 0 Refill(s) No Longer Active 03/25/2018 [facility] Gentamicin Sulfate (NURSING HOME) 1 MG/ML Topical Cream 1 appl, TOP, Q24H, 0 Refill(s) No Longer Active 03/25/2018 [facility] vancomycin 1 g intravenous injection 750 mg, IV, Q8H, # 42 bag, 0 Refill(s), Pharmacy: [facility] [id number] No Longer Active 03/25/2018 [facility] RN-Wait to give 06:00 vanc on 03/21 till trough drawn RN-Wait to give 06:00 vanc on 03/21 till trough drawn, Attn:RN, Drug form: MISC, Route: MISC, ONCE, 03/21/18 5:00:00 CDT, Stop date: 03/21/18 5:00:00 CDT Inactive 03/21/2018 [facility] Gentamicin Sulfate (NURSING HOME) 1 MG/ML Topical Cream 1 appl, Route: TOP, Q24H, Drug form: CRM, Start date: 03/20/18 18:00:00 CDT, Duration: 30 day, Stop date: 04/18/18 18:00:00 CDTNotes: (Same as: Garamycin) No Longer Active 03/20/2018 [facility] Zofran 4 mg, 2 mL, Route: IVP, Drug form: INJ, Q6H, Dosing Weight 73.636, kg, PRN Nausea, Start date: 03/20/18 10:20:00 CDT, Duration: 30 day, Stop date: 04/19/18 10:19:00 CDTNotes: (Same as: Zofran) MEDICATION WASTE Product Size: 4 mg Product Wasted: ___ mg No Longer Active 03/20/2018 [facility] insulin glargine 30 unit, 0.3 mL, Route: SUB-Q, Drug form: SOLN, BID, Start date: 03/20/18 9:08:00 CDT, Duration: 30 day, Stop date: 04/19/18 9:00:00 CDTNotes: (Same as: Lanaubreeus) Do not hold insulin without contacting prescriber WASTE: F/P - Black; E - Municipal Trash Bin "single patient use only" No Longer Active 03/20/2018 [facility] venlafaxine 75 mg, 2 cap, Route: PO, Drug form: ERCAP, Daily, Dosing Weight 73.636, kg, Start date: 03/20/18 9:00:00 CDT, Duration: 30 day, Stop date: 04/18/18 9:00:00 CDTNotes: Do not open, crush, or chew. (Same As: Effexor XR) No Longer Active 03/20/2018 [facility] Spironolactone 100 mg, 2 tab, Route: PO, Drug form: TAB, Daily, Dosing Weight 73.636, kg, Start date: 03/20/18 9:00:00 CDT, Duration: 30 day, Stop date: 04/18/18 9:00:00 CDTNotes: (Same As: Aldactone) No Longer Active 03/20/2018 [facility] quetiapine 25 mg, 1 tab, Route: PO, Drug form: TAB, BID, Dosing Weight 73.636, kg, Start date: 03/20/18 9:00:00 CDT, Duration: 30 day, Stop date: 04/18/18 17:00:00 CDTNotes: (Same as: SEROquel) No Longer Active 03/20/2018 [facility] Lisinopril 10 mg, 2 tab, Route: PO, Drug form: TAB, Daily, Dosing Weight 73.636, kg, Start date: 03/20/18 9:00:00 CDT, Duration: 30 day, Stop date: 04/18/18 9:00:00 CDTNotes: (Same as: Prinivil, Zestril) No Longer Active 03/20/2018 [facility] Levemir Route: SUB-Q, BID, Dosing Weight 73.636, kg, Start date: 03/20/18 9:00:00 CDT, Duration: 30 day, Stop date: 04/18/18 17:00:00 CDT Inactive 03/20/2018 [facility] Furosemide 40 MG Oral Tablet 40 mg, 1 tab, Route: PO, Drug form: TAB, Daily, Dosing Weight 73.636, kg, Start date: 03/20/18 9:00:00 CDT, Duration: 30 day, Stop date: 04/18/18 9:00:00 CDTNotes: (Same as: Lasix) May cause GI upset. Give with food or milk. No Longer Active 03/20/2018 [facility] Aspirin 81 MG Chewable Tablet 81 mg, 1 tab, Route: PO, Drug form: CHEWTAB, Daily, Dosing Weight 73.636, kg, Start date: 03/20/18 9:00:00 CDT, Duration: 30 day, Stop date: 04/18/18 9:00:00 CDTNotes: Take with food. No Longer Active 03/20/2018 [facility] Insulin Lispro 2 unit, 0.02 mL, Route: SUB-Q, Drug form: SOLN, Bedtime, Dosing Weight 73.636, kg, PRN Blood Glucose Results, Start date: 03/20/18 8:55:00 CDT, Duration: 30 day, Stop date: 04/19/18 8:54:00 CDTNotes: (Same as: Humalog ) Roll in palms of hands gently; Do not shake `vigorously. "Single Patient Use Only " WASTE: F/P - Black; E - Municipal Trash Bin Stable for 28 days at room temperature. Expires in days from Date No Longer Active 03/20/2018 [facility] Dextrose 50% Syringe 12.5 gm, 25 mL, Route: IVP, Drug Form: INJ, Dosing Weight 73.636, kg, PRN, PRN Blood Glucose Results, Start date: 03/20/18 8:55:00 CDT, Duration: 30 day, Stop date: 04/19/18 8:54:00 CDT No Longer Active 03/20/2018 [facility] Glucagon 1 mg, Route: IM, Drug form: PDR/INJ, PRN, Dosing Weight 73.636, kg, PRN Blood Glucose Results, Start date: 03/20/18 8:55:00 CDT, Duration: 30 day, Stop date: 04/19/18 8:54:00 CDT No Longer Active 03/20/2018 [facility] 200 ACTUAT Albuterol 0.09 MG/ACTUAT Metered Dose Inhaler [ProAir HFA] 180 microgram, Route: INHALER, Drug Form: AERO/A, Dosing Weight 73.636, kg, Q6H, PRN Wheezing, Start date: 03/20/18 8:54:00 CDT, Duration: 30 day, Stop date: 04/19/18 8:53:00 CDTNotes: Albuterol 90 microgram/inh 8gm HFA WASTE: Aerosol - Return to Pharmacy Same as: Zenaida Clarktil No Longer Active 03/20/2018 [facility] Vancomycin 750 mg, Route: IV, ABXQ8H, Dosing Weight 77.273, kg, Start date: 03/20/18 4:00:00 CDT, Duration: 30 day, Stop date: 04/18/18 22:00:00 CDT, ABX Indication: Bone/Joint InfectionNotes: TIME CRITICAL MEDICA TION (Same As: Vancocin) Infusion rate 2001 mg: infuse over 2.5 hours For adult patients only: Round to nearest 250 mg per Medical Staff approval MEDICATION WASTE Product Size: 1000 mg Product Wasted: ___ mg No Longer Active 03/20/2018 [facility] Dilaudid 2 mg, 1 tab, Route: PO, Drug form: TAB, Q4H, Dosing Weight 73.636, kg, PRN Pain Score 7-10, Start date: 03/19/18 22:47:00 CDT, Duration: 30 day, Stop date: 04/18/18 22:46:00 CDTNotes: (Same as: Dilaudid) No Longer Active 03/20/2018 [facility] Acetaminophen 325 MG / Hydrocodone Bitartrate 5 MG Oral Tablet [[place] 5/325] 1 tab, Route: PO, Drug Form: TAB, Dosing Weight 73.636, kg, Q4H, PRN Pain Score 1-3, Start date: 03/19/18 22:47:00 CDT, Duration: 30 day, Stop date: 04/18/18 22:46:00 CDTNotes: (Same as: [place] 325/5) Do not exceed 4gm/day of acetaminophen. No Longer Active 03/20/2018 [facility] pneumococcal capsular polysaccharide type 1 vaccine / pneumococcal capsular polysaccharide type 10A vaccine / pneumococcal capsular polysaccharide type 11A vaccine / pneumococcal capsular polysaccharide type 12F vaccine / pneumococcal capsular polysacchar 0.5 mL, Route: IM, ONCALL, Start date: 03/19/18 22:21:08 CDT, Stop date: 04/18/18 22:16:08 CDT Inactive 03/20/2018 [facility] Levemir 30 units, SUB-Q, BID, 0 Refill(s) Active 03/20/2018 [facility] lisinopril 10 mg oral tablet 10 mg=1 tab, PO, Daily, # 30 tab, 0 Refill(s) No Longer Active 03/20/2018 [facility] Zosyn 3.375 gm, Route: IVPB, Drug form: PDR/INJ, ABXQ8H, Dosing Weight 77.273, kg, CrCl >=20 ml/min infuse over 4 hours, Start date: 03/19/18 18:00:00 CDT, Duration: 14 day, Stop date: 04/02/18 10:00:00 CDT, ABX Indication: Bone/Joint Infection Inactive 03/19/2018 [facility] Vancomycin 1,000 mg, Route: IVPB, Drug form: INJ, ONCE, Dosing Weight 77.273, kg, Priority: STAT, Start date: 03/19/18 17:07:00 CDT, Stop date: 03/19/18 17:07:00 CDT, ABX Indication: Skin/Soft Tissue InfectionNote s: TIME CRITICAL MEDICATION (Same As: Vancocin) Infusion rate 2001 mg: infuse over 2.5 hours For adult patients only: Round to nearest 250 mg per Medical Staff approval MEDICATION WASTE Product Size: 1000 mg Product Wasted: ___ mg No Longer Active 03/19/2018 [facility] Zosyn 3.375 gm, Route: IVPB, ONCE, Dosing Weight 77.273, kg, Priority: STAT, Start date: 03/19/18 17:06:00 CDT, Stop date: 03/19/18 17:06:00 CDT, ABX Indication: Skin/Soft Tissue InfectionNotes: (Same as: Zosyn) Dosing based on Piperacillin component MEDICATION WASTE Product Size: 3375 mg Product Wasted: ___ mg Inactive 03/19/2018 [facility] Morphine 4 mg, 1 mL, Route: IVP, Drug form: SOLN, ONCE, Dosing Weight 77.273, kg, Priority: STAT, Start date: 03/19/18 16:42:00 CDT, Stop date: 03/19/18 16:42:00 CDTNotes: (Same as:MORPhine Sulfate) Inactive 03/19/2018 [facility] Hydrocodone Bit/Acetaminophen (Hydrocodone-Apap 10-325 Tablet) 1 Each Tablet, 10 Mg Oral As Needed Active 05/04/2017 [facility] Insulin Aspart (Novolog) 100 Unit/1 Ml Cartridge, 10 Units Sub-Q Three Times A Day Active 05/04/2017 [facility] Insulin Lispro (Humalog) 100 Unit/1 Ml Vial, 10 Units Subcutaneously Three Times Daily With Meals Active 05/04/2017 [facility] Trazodone Hcl 100 Mg Tablet, 100 Mg Oral Daily Active 05/04/2017 [facility] Sodium Chloride 0.9% (Bolus) IV 1,000 mL, 1000 ml/hr, Infuse Over: 1 hr, Route: IV, 1,000, Drug form: INJ, ONCE, Priority: STAT, Dosing Weight 72.727 kg, Start date: 05/03/17 3:42:00 CDT, Duration: 1 doses or times, Stop date: 05/03/17 3:42:00 CDT Inactive 05/03/2017 [facility] Acetaminophen 300 MG / Codeine Phosphate 30 MG Oral Tablet [Tylenol with Codeine #3] 1 tab, PO, Q6H, PRN Pain, X 15 day, # 60 tab, 0 Refill(s) Active 05/03/2017 [facility] NS (Bolus) IV 1,000 mL, 1,000 ml/hr, Infuse Over: 1 hr, Route: IV, 1,000, Drug form: INJ, ONCE, Priority: STAT, Dosing Weight 72.727 kg, Start date: 05/03/17 2:22:00 CDT, Duration: 1 doses or times, Stop date: 10/18 2:22:00 CDT Inactive 05/03/2017 [facility] GI cocktail 30 mL, Route: PO, Drug Form: SUSP, Dosing Weight 72.727, kg, ONCE, STAT, Start date: 05/02/17 23:18:00 CDT, Stop date: 05/02/17 23:18:00 CDTNotes: G.I. Cocktail=antacid with simethicone 22.5 mL - lidocaine viscous 7.5 mL No Longer Active 05/03/2017 [facility] Metoclopramide 10 mg, Route: IVP, Drug form: INJ, ONCE, Dosing Weight 72.727, kg, Priority: STAT, Start date: 05/02/17 23:18:00 CDT, Stop date: 05/02/17 23:18:00 CDT Inactive 05/03/2017 [facility] Morphine 4 mg, Route: IVP, ONCE, Dosing Weight 72.727, kg, Priority: STAT, Start date: 05/02/17 23:18:00 CDT, Stop date: 05/02/17 23:18:00 CDT Inactive 05/03/2017 [facility] Saline Flush 0.9% 10 mL, Route: IVP, Drug Form: INJ, Dosing Weight 72.727, kg, PRN, PRN Line Flush, Start date: 05/02/17 23:18:00 CDT, Duration: 30 day, Stop date: 06/01/17 23:17:00 CDTNotes: (Same as: BD Posiflush) No Longer Active 05/03/2017 [facility] venlafaxine 75 mg oral capsule, extended release 75 mg=1 cap, PO, Daily, # 30 cap, 0 Refill(s) Active 02/07/2017 [facility] pregabalin 75 mg oral capsule 150 mg=2 cap, PO, BID, # 120 cap, 0 Refill(s) Active 02/07/2017 [facility] insulin detemir 100 units/mL subcutaneous solution 10 unit, SUB-Q, BID-Before Meals, # 10 mL, 3 Refill(s) Active 02/07/2017 [facility] spironolactone 50 mg oral tablet 100 mg=2 tab, PO, Daily, # 60 tab, 3 Refill(s) Active 02/07/2017 [facility] lisinopril 40 mg oral tablet 40 mg=1 tab, PO, Daily, # 30 tab, 3 Refill(s) Active 02/07/2017 [facility] Furosemide 40 MG Oral Tablet 40 mg=1 tab, PO, Daily, # 30 tab, 3 Refill(s) Active 02/07/2017 [facility] QUEtiapine 25 mg oral tablet 25 mg=1 tab, PO, BID, # 60 tab, 0 Refill(s) Active 02/07/2017 [facility] Aspirin 81 MG Chewable Tablet 81 mg=1 tab, PO, Daily, # 30 tab, 3 Refill(s) Active 02/07/2017 [facility] tramadol hydrochloride 50 MG Oral Tablet 50 mg=1 tab, PO, TID, PRN prn pain, X 14 day, # 42 tab, 0 Refill(s) Active 02/07/2017 [facility] 200 ACTUAT Albuterol 0.09 MG/ACTUAT Metered Dose Inhaler [ProAir HFA] 180 microgram=2 puff, INHALER, Q6H, PRN for wheezing, # 1 ea, 3 Refill(s) Active 02/07/2017 [facility] fructooligosaccharide 200 MG / Lactobacillus acidophilus [id number] UNT Chewable Tablet 1 tab, CHEW, Daily, # 30 tab, 0 Refill(s) Active 02/07/2017 [facility] bismuth subsalicylate 262 MG Chewable Tablet [Pepto-bismol] 524 mg=2 tab, CHEW, Daily, X 14 day, # 28 tab, 0 Refill(s) Active 02/07/2017 [facility] Sodium Chloride 0.154 MEQ/ML Injectable Solution 500 mL, 500 ml/hr, Infuse Over: 1 hr, Route: IV, 500, Drug form: INJ, ONCE, Priority: STAT, Dosing Weight 72.727 kg, Start date: 02/07/17 11:41:00 CDT, Duration: 1 doses or times, Stop date: 02/07/17 11:41:00 CDT Inactive 02/07/2017 [facility] sodium phosphate + sodium chloride 0.9% INJ 250 mL 30 mmol, 10 mL, Route: IVPB, ONCE, Dosing Weight 72.727, kg, Start date: 02/07/17 5:50:00 CDT, Stop date: 02/07/17 5:50:00 CDT Inactive 02/07/2017 [facility] pregabalin 150 mg, 2 cap, Route: PO, Drug form: CAP, Q12H, Dosing Weight 72.727, kg, Start date: 02/06/17 21:00:00 CDT, Duration: 30 day, Stop date: 03/08/17 9:00:00 CDTNotes: (Same as: Lyrica) No Longer Active 02/07/2017 [facility] Insulin regular 2 unit, 0.02 mL, Route: SUB-Q, Drug form: SOLN, TID-Before Meals, Dosing Weight 72.727, kg, PRN Blood Glucose Results, Start date: 02/06/17 18:18:00 CDT, Duration: 30 day, Stop date: 03/08/17 18:17:0 0 CDTNotes: (Same as: Humulin R) Roll in palms of hands gently; Do not shake vigorously. "single patient use only" (Restricted to patients requiring a dose > 60 units) WASTE: F/P - Black; E - Municipal Trash Bin Stable for 28 days at room temperature Expires in days from Date No Longer Active 02/06/2017 [facility] Glucagon 1 mg, Route: IM, Drug form: PDR/INJ, PRN, Dosing Weight 72.727, kg, PRN Blood Glucose Results, Start date: 02/06/17 18:18:00 CDT, Duration: 30 day, Stop date: 03/08/17 18:17:00 CDT No Longer Active 02/06/2017 [facility] Dextrose 50% Syringe 25 gm, 50 mL, Route: IVP, Drug Form: INJ, Dosing Weight 72.727, kg, PRN, PRN Blood Glucose Results, Start date: 02/06/17 18:18:00 CDT, Duration: 30 day, Stop date: 03/08/17 18:17:00 CDT No Longer Active 02/06/2017 [facility] Levemir 10 unit, 0.1 mL, Route: SUB-Q, Drug form: SOLN, Q12H, Dosing Weight 72.727, kg, Start date: 02/06/17 18:17:00 CDT, Duration: 30 day, Stop date: 03/08/17 21:00:00 CDTNotes: Same as Levemir Do not hold insulin without contacting prescriber WASTE: F/P - Black; E - Municipal Trash Bin "single patient use only" No Longer Active 02/06/2017 [facility] venlafaxine 75 mg, 1 cap, Route: PO, Drug form: ERCAP, Daily, Dosing Weight 72.727, kg, Start date: 02/06/17 9:00:00 CDT, Duration: 30 day, Stop date: 03/07/17 9:00:00 CDTNotes: Do not open, crush, or chew. (Same As: Effexor XR) No Longer Active 02/06/2017 [facility] quetiapine 25 mg, 1 tab, Route: PO, Drug form: TAB, BID, Dosing Weight 72.727, kg, Start date: 02/06/17 9:00:00 CDT, Duration: 30 day, Stop date: 03/07/17 17:00:00 CDTNotes: (Same as: SEROquel) No Longer Active 02/06/2017 [facility] aspirin 81 mg tablet, enteric coated 81 mg, 1 tab, Route: PO, Drug form: ECTAB, Daily, Dosing Weight 72.727, kg, Start date: 02/06/17 9:00:00 CDT, Duration: 30 day, Stop date: 03/07/17 9:00:00 CDTNotes: Do not crush or chew. (Same As: Ecotrin) No Longer Active 02/06/2017 [facility] heparin 5,000 unit, 1 mL, Route: SUB-Q, Drug form: INJ, Q8H, Dosing Weight 72.727, kg, Start date: 02/06/17 9:00:00 CDT, Stop date: 03/08/17 0:00:00 CDTNotes: porcine heparin No Longer Active 02/06/2017 [facility] heparin 5,000 unit, Route: SUB-Q, Q8H, Dosing Weight 72.727, kg, Start date: 02/06/17 8:00:00 CDT, Duration: 30 day, Stop date: 03/08/17 0:00:00 CDT Inactive 02/06/2017 [facility] potassium phosphate + sodium chloride 0.9% INJ 250 mL 15 mmol, 5 mL, Route: IVPB, PRN, Dosing Weight 72.727, kg, PRN Abnormal Lab Result, Start date: 02/06/17 1:08:00 CDT, Duration: 30 day, Stop date: 03/08/17 1:07:00 CDT, FOR ICU USE ONLYNotes: (Same as: K Phosphate.) 1 mMol phoshate has 1.47 mEq potassium Infuse over 4 hours Inactive 02/06/2017 [facility] sodium phosphate + sodium chloride 0.9% INJ 250 mL 45 mmol, 15 mL, Route: IVPB, PRN, Dosing Weight 72.727, kg, PRN Abnormal Lab Result, Start date: 02/06/17 1:08:00 CDT, Duration: 30 day, Stop date: 03/08/17 1:07:00 CDT, FOR ICU USE ONLY Inactive 02/06/2017 [facility] potassium chloride 20 mEq, 15 mL, Route: NJ, Drug form: LIQ, PRN, Dosing Weight 72.727, kg, PRN Abnormal Lab Result, Start date: 02/06/17 1:08:00 CDT, Duration: 30 day, Stop date: 03/08/17 1:07:00 CDT, FOR ICU USE ONLYNotes: (Same as: Potassium Chloride) Inactive 02/06/2017 [facility] Magnesium Oxide 800 mg, 2 tab, Route: PO, Drug form: TAB, PRN, Dosing Weight 72.727, kg, PRN Abnormal Lab Result, FOR ICU USE ONLY, Start date: 02/06/17 1:08:00 CDT, Duration: 30 day, Stop date: 03/08/17 1:07:00 CDTNot es: (Same as: Mag-Ox 400) Magnesium oxide [id number] elemental magnesium Dose=____mg magnesium oxide (___mg elemental magnesium) Inactive 02/06/2017 [facility] Calcium Gluconate 1 gm, 10 mL, Route: IVPB, PRN, Dosing Weight 72.727, kg, PRN Abnormal Lab Result, Start date: 02/06/17 1:08:00 CDT, Duration: 30 day, Stop date: 03/08/17 1:07:00 CDT, FOR ICU USE ONLYNotes: WASTE: F/P - Sink; E - Municipal Trash Bin Inactive 02/06/2017 [facility] potassium phosphate-sodium phosphate 250 mg-280 mg-160 mg oral powder for reconstitution 2 pkt, Route: PO, Drug Form: PDR/REC, Dosing Weight 72.727, kg, PRN, PRN Abnormal Lab Result, FOR ICU USE ONLY, Start date: 02/06/17 1:08:00 CDT, Duration: 30 day, Stop date: 03/08/17 1:07:00 CDTNotes: (Same as: Phos-NaK) Each 1.5 gm pkt has 250mg phosphorous. Mix w/2.5oz water and stir. Inactive 02/06/2017 [facility] Magnesium Sulfate 2 gm, 50 mL, Route: IVPB, Drug form: INJ, PRN, Dosing Weight 72.727, kg, PRN Abnormal Lab Result, Start date: 02/06/17 1:08:00 CDT, Duration: 30 day, Stop date: 03/08/17 1:07:00 CDT, FOR ICU USE ONLYNotes: WASTE: F/P - Sink; E - Municipal Trash Bin Inactive 02/06/2017 [facility] Calcium Carbonate 500 MG Chewable Tablet 500 mg, 1 tab, Route: PO, Drug form: CHEWTAB, PRN, Dosing Weight 72.727, kg, PRN Abnormal Lab Result, FOR ICU USE ONLY, Start date: 02/06/17 1:08:00 CDT, Duration: 30 day, Stop date: 03/08/17 1:07:00 CDTNotes: (Same As: Tums) Calcium Carbonate 500 ob=020 mg elemental calcium Dose= mg calcium carbonate ( mg elemental calcium) Inactive 02/06/2017 [facility] Vancomycin 125 mg, 2.5 mL, Route: PO, Drug form: SOLN, ABXQ6H, Dosing Weight 72.727, kg, Start date: 02/06/17 1:00:00 CDT, Duration: 10 day, Stop date: 02/15/17 19:00:00 CDT, ABX Indication: Other (specify in Comm ents)Notes: TIME CRITICAL MEDICATION Concentration=50 mg/ml. Keep in refrigerator. For oral use only. Vancomycin 1gm vial are used and reconstituted with 20ml of sterile water for a concentration of 50mg/ml. Draw up in jeri po syringes. DO NOT USE IV SYRINGES. No Longer Active 02/06/2017 [facility] Insulin, Aspart, Human 10 unit, 0.1 mL, Route: SUB-Q, Drug form: SOLN, TID-Before Meals, Dosing Weight 72.727, kg, PRN Blood Glucose Results, Start date: 02/06/17 0:35:00 CDT, Duration: 30 day, Stop date: 03/08/17 0:34:00 CDTNotes: Roll in palms of hands gently; Do not shake vigorously. (Same as: NovoLOG) "single patient use only" WASTE: F/P - Black; E - Municipal Trash Bin Stable for 28 days at room temperature. Expires in days from Date Inactive 02/06/2017 [facility] Glucagon 1 mg, Route: IM, Drug form: PDR/INJ, PRN, Dosing Weight 72.727, kg, PRN Blood Glucose Results, Start date: 02/06/17 0:35:00 CDT, Duration: 30 day, Stop date: 03/08/17 0:34:00 CDT Inactive 02/06/2017 [facility] Dextrose 50% Syringe 25 gm, 50 mL, Route: IVP, Drug Form: INJ, Dosing Weight 72.727, kg, PRN, PRN Blood Glucose Results, Start date: 02/06/17 0:35:00 CDT, Duration: 30 day, Stop date: 03/08/17 0:34:00 CDT Inactive 02/06/2017 [facility] Calcium Gluconate 2,000 mg, 20 mL, Route: IVPB, ONCE, Dosing Weight 72.727, kg, Start date: 02/05/17 21:55:00 CDT, Stop date: 02/05/17 21:55:00 CDTNotes: WASTE: F/P - Sink; E - Municipal Trash Bin Inactive 02/06/2017 [facility] Water 1000 MG/ML Injectable Solution 1,000 mL, Rate: 125 ml/hr, Infuse over: 9.2 hr, Route: IV, Dosing Weight 72.727 kg, Total Volume: 1,150 mL, Priority: STAT, Start date: 02/05/17 21:25:00 CDT, Duration: 30 day, Stop date: 03/07/17 21:24:00 CDTNotes: (sodium bicarb 8.4% (1 mEq/ml) 50 ml VL) No Longer Active 02/06/2017 [facility] Lasix 20 mg, Route: IVP, Drug form: INJ, ONCE, Dosing Weight 72.727, kg, Start date: 02/05/17 19:19:00 CDT, Stop date: 02/05/17 19:19:00 CDT Inactive 02/06/2017 [facility] Water 1,000 mL, Rate: Infuse as directed, Dosing Weight 72.727, kg, Route: IV, Total Volume: 1,100 mL, Start Date: 02/05/17 18:13:00 CDT, Duration: 30 day, Stop date: 03/07/17 18:12:00 CDT, Replace Every: 24 hrNotes: (sodium bicarb 8.4% (1 mEq/ml) 50 ml VL) Inactive 02/05/2017 [facility] Water 1,000 mL, Rate: Infuse as directed, Dosing Weight 72.727, kg, Route: IV, Total Volume: 1,000 mL, Start Date: 02/05/17 18:10:00 CDT, Duration: 30 day, Stop date: 03/07/17 18:09:00 CDT, Replace Every: 24 hr Inactive 02/05/2017 [facility] Sodium Chloride 0.154 MEQ/ML Injectable Solution 3,000 mL, Infuse Over: 1 hr, Route: IV, ONCE, Priority: STAT, Dosing Weight 72.727 kg, Start date: 02/05/17 18:10:00 CDT, Duration: 1 doses or times, Stop date: 02/05/17 18:10:00 CDT Inactive 02/05/2017 [facility] Isolyte S PH-7.4 (Bolus) IV 3,000 mL, Route: IV, Dosing Weight 72.727, kg, ONCE, Start date: 02/05/17 18:00:00 CDT, Stop date: 02/05/17 18:00:00 CDT Inactive 02/05/2017 [facility] Dextrose 50% Syringe 50 gm, Route: IVP, Dosing Weight 72.727, kg, ONCE, Start date: 02/05/17 18:00:00 CDT, Stop date: 02/05/17 18:00:00 CDT Inactive 02/05/2017 [facility] Insulin regular 5 unit, Route: IV, ONCE, Dosing Weight 72.727, kg, Start date: 02/05/17 18:00:00 CDT, Stop date: 02/05/17 18:00:00 CDT Inactive 02/05/2017 [facility] Albuterol 0.83 MG/ML Inhalant Solution 10 mL, Route: INHALATION, ONCE, Dosing Weight 72.727, kg, Start date: 02/05/17 18:00:00 CDT, Stop date: 02/05/17 18:00:00 CDT Inactive 02/05/2017 [facility] tramadol hydrochloride 50 MG Oral Tablet 50 mg=1 tab, PO, TID, PRN prn pain No Longer Active 02/05/2017 [facility] Aspirin 81 MG Chewable Tablet 81 mg=1 tab, PO, Daily No Longer Active 02/05/2017 [facility] QUEtiapine 25 mg oral tablet 25 mg=1 tab, PO, BID No Longer Active 02/05/2017 [facility] Sodium Chloride 0.154 MEQ/ML Injectable Solution 1,000 mL, 1000 ml/hr, Infuse Over: 1 hr, Route: IV, 1,000, Drug form: INJ, ONCE, Priority: STAT, Dosing Weight 72.727 kg, Start date: 02/05/17 15:08:00 CDT, Duration: 1 doses or times, Stop date: 02/05/17 15:08:00 CDT Inactive 02/05/2017 [facility] Vancomycin 125 mg, 2.5 mL, Route: PO, Drug form: SOLN, ONCE, Dosing Weight 72.727, kg, Start date: 02/05/17 13:43:00 CDT, Stop date: 02/05/17 13:43:00 CDT, ABX Indication: Bacteremia Inactive 02/05/2017 [facility] Calcium Gluconate 1,000 mg, Route: IVPB, Drug form: INJ, ONCE, Dosing Weight 72.727, kg, Start date: 02/05/17 13:24:00 CDT, Stop date: 02/05/17 13:24:00 CDT Inactive 02/05/2017 [facility] Calcium Gluconate 1,000 mg, Route: IVPB, Drug form: INJ, ONCE, Dosing Weight 72.727, kg, Start date: 02/05/17 13:21:00 CDT, Stop date: 02/05/17 13:21:00 CDT Inactive 02/05/2017 [facility] Dextrose 50% Syringe 25 gm, Route: IVP, Dosing Weight 72.727, kg, ONCE, STAT, Start date: 02/05/17 13:20:00 CDT, Stop date: 02/05/17 13:20:00 CDT Inactive 02/05/2017 [facility] Insulin regular 5 unit, Route: IVP, ONCE, Dosing Weight 72.727, kg, Priority: STAT, Start date: 02/05/17 13:20:00 CDT, Stop date: 02/05/17 13:20:00 CDT Inactive 02/05/2017 [facility] Albuterol 0.83 MG/ML Inhalant Solution 9 mL, Route: INHALATION, ONCE, Dosing Weight 72.727, kg, Start date: 02/05/17 13:20:00 CDT, Stop date: 02/05/17 13:20:00 CDT Inactive 02/05/2017 [facility] Vancomycin 1.5 gm, 250 mL, Route: IVPB, Drug form: INJ, ONCE, Dosing Weight 72.727, kg, Priority: STAT, Start date: 02/05/17 12:47:00 CDT, Duration: 1 doses or times, Stop date: 02/05/17 12:47:00 CDT, ABX Indicati on: BacteremiaNotes: TIME CRITICAL MEDICATION Same as: Vancocin-NS (premixed) Infusion rate 2001 mg: infuse over 2.5 hours Inactive 02/05/2017 [facility] Piperacillin / tazobactam 4.5 gm, Route: IVPB, Drug form: INJ, ONCE, Dosing Weight 72.727, kg, Priority: STAT, Start date: 02/05/17 12:47:00 CDT, Duration: 1 doses or times, Stop date: 02/05/17 12:47:00 CDT, ABX Indication: BacteremiaNotes: (Same as: Zosyn) Dosing based on Piperacillin component MEDICATION WASTE Product Size: 4500 mg Product Wasted: _0__ mg Inactive 02/05/2017 [facility] Sodium Chloride 0.154 MEQ/ML Injectable Solution 1,000 mL, Infuse Over: 1 hr, Route: IV, ONCE, Priority: STAT, Dosing Weight 72.727 kg, Start date: 02/05/17 12:47:00 CDT, Duration: 1 doses or times, Stop date: 02/05/17 12:47:00 CDT Inactive 02/05/2017 [facility] venlafaxine 75 mg oral capsule, extended release 75 mg=1 cap, PO, Daily, # 30 cap, 0 Refill(s) Active 01/19/2017 [facility] spironolactone 50 mg oral tablet 100 mg=2 tab, PO, Daily, # 60 tab, 0 Refill(s) Active 01/19/2017 [facility] minocycline 100 mg oral capsule 100 mg=1 cap, PO, [id number], X 14 day, # 28 cap, 0 Refill(s) Active 01/19/2017 [facility] levofloxacin 750 mg oral tablet 750 mg=1 tab, PO, [id number], X 14 day, # 14 tab, 0 Refill(s) Active 01/19/2017 [facility] Furosemide 40 MG Oral Tablet 40 mg=1 tab, PO, Daily, # 30 tab, 0 Refill(s) Active 01/19/2017 [facility] tramadol hydrochloride 50 MG Oral Tablet 50 mg=1 tab, PO, TID, PRN Pain, X 14 day, # 42 tab, 0 Refill(s) Active 01/19/2017 [facility] lisinopril 40 mg oral tablet 40 mg=1 tab, PO, Daily, # 30 tab, 0 Refill(s) Active 01/19/2017 [facility] insulin detemir 100 units/mL subcutaneous solution 10 unit, SUB-Q, BID-Before Meals, # 10 mL, 0 Refill(s) Active 01/19/2017 [facility] pregabalin 75 mg oral capsule 150 mg=2 cap, PO, BID, # 120 cap, 0 Refill(s) Active 01/19/2017 [facility] QUEtiapine 25 mg oral tablet 50 mg=2 tab, PO, QPM, # 60 tab, 0 Refill(s) Active 01/19/2017 [facility] Lisinopril 20 mg, 1 tab, Route: PO, Drug form: TAB, Daily, Dosing Weight 77.273, kg, Start date: 01/18/17 9:00:00 CDT, Duration: 30 day, Stop date: 02/16/17 9:00:00 CDTNotes: (Same as: Prinivil, Zestril) No Longer Active 01/18/2017 [facility] Hydralazine 50 mg, 1 tab, Route: PO, Drug form: TAB, TID, Dosing Weight 77.273, kg, Start date: 01/17/17 17:00:00 CDT, Duration: 30 day, Stop date: 02/16/17 13:00:00 CDTNotes: (Same as: Apresoline) May interfere w/enteral feedings Take With Food No Longer Active 01/17/2017 [facility] Lasix 40 mg, 4 mL, Route: IVP, Drug form: INJ, BID, Dosing Weight 77.273, kg, Priority: NOW, Start date: 01/17/17 10:00:00 CDT, Duration: 30 day, Stop date: 02/16/17 9:00:00 CDTNotes: (Same as: Lasix) MEDICATION WASTE Product Size: 40 mg Product Wasted: ___ mg No Longer Active 01/17/2017 [facility] Aldactone 100 mg, 2 tab, Route: PO, Drug form: TAB, Daily, Dosing Weight 77.273, kg, Priority: NOW, Start date: 01/17/17 10:00:00 CDT, Duration: 30 day, Stop date: 02/16/17 9:00:00 CDTNotes: (Same As: Aldactone) No Longer Active 01/17/2017 [facility] Levofloxacin 750 mg, 1 tab, Route: PO, Drug form: TAB, [id number], Dosing Weight 77.273, kg, Start date: 01/17/17 9:00:00 CDT, Duration: 14 day, Stop date: 01/30/17 9:00:00 CDT, ABX Indication: Skin/Soft Tissue Infe ctionNotes: Do not give w/antacids, dairy pdt & minerals Take 1 hr before or 2 hr after dairy products No Longer Active 01/17/2017 [facility] Minocycline 100 mg, 1 cap, Route: PO, Drug form: CAP, [id number], Dosing Weight 77.273, kg, Start date: 01/17/17 9:00:00 CDT, Duration: 14 day, Stop date: 01/30/17 21:00:00 CDTNotes: (Same as:Minocin) No milk/antacids/iron. No Longer Active 01/17/2017 [facility] insulin detemir 10 unit, 0.1 mL, Route: SUB-Q, Drug form: SOLN, BID-Before Meals, Dosing Weight 77.273, kg, Start date: 01/16/17 16:30:00 CDT, Duration: 30 day, Stop date: 02/15/17 7:30:00 CDTNotes: Same as Levemir Do not hold insulin without contacting prescriber WASTE: F/P - Black; E - Municipal Trash Bin "single patient use only" No Longer Active 01/16/2017 [facility] Hydralazine 10 mg, 0.5 mL, Route: IV, Drug form: INJ, Q6H, Dosing Weight 77.273, kg, PRN Hypertension, Start date: 01/16/17 12:07:00 CDT, Duration: 30 day, Stop date: 02/15/17 12:06:00 CDTNotes: (Same as: Apresoline) Push over 5 minutes No Longer Active 01/16/2017 [facility] Lasix 20 mg, 2 mL, Route: IVP, Drug form: INJ, ONCE, Dosing Weight 77.273, kg, Start date: 01/16/17 12:07:00 CDT, Stop date: 01/16/17 12:07:00 CDTNotes: (Same as: Lasix) Inactive 01/16/2017 [facility] ropivacaine Route: NERVE BLOCK, Continuous Rate: 6, ml/hr, Dosing Site: Supraclavicular Side: Right, 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 [employer]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 dose 3 mL, EMBOSSING PR[employer] OPERATOR dose lockout: 30 minutes, 1 Hour limit: 12 mL, 200, mL, Start date: 01/15/17 15:33:00 CDT, Dur ation: 30, day, Drug Form: INJ, Total volume: 200...Notes: Same as: Naropin No Longer Active 01/15/2017 [facility] ketOROLAC (ANES) IV, ONCE Inactive 01/15/2017 [facility] ondansetron (ANES) Route: IV, Drug form: INJ, ONCE, Stop date: 01/15/17 14:54:00 CDT Inactive 01/15/2017 [facility] Ondansetron 4 mg, 2 mL, Route: IVP, Drug form: INJ, ONCE, Dosing Weight 77.273, kg, PRN Nausea & Vomiting, Start date: 01/15/17 13:40:00 CDTNotes: (Same as: Zofran) MEDICATION WASTE Product Size: 4 mg Product Wasted: ___ mg Inactive 01/15/2017 [facility] Hydromorphone 0.5 mg, 0.25 mL, Route: IVP, Drug form: INJ, Q5Min, Dosing Weight 77.273, kg, PRN Pain Score 7-10, Start date: 01/15/17 13:40:00 CDT, Duration: 4 doses or times, Stop date: Limited # of timesNotes: ( Same as: Dilaudid) Inactive 01/15/2017 [facility] Naloxone 0.4 mg, 1 mL, Route: IVP, Drug form: INJ, Q2MIN, Dosing Weight 77.273, kg, PRN Narcotic Reversal, Start date: 01/15/17 13:40:00 CDT, Duration: 8 doses or times, Stop date: Limited # of timesNotes: (Same as: Narcan) Inactive 01/15/2017 [facility] Flumazenil 0.2 mg, 2 mL, Route: IVP, Drug form: INJ, PRN, Dosing Weight 77.273, kg, PRN Benzodiazepine Reversal, Initial dose, Start date: 01/15/17 13:40:00 CDT, Duration: 1 day, Stop date: 01/16/17 13:39:00 CD TNotes: (Same as: Romazicon) Inactive 01/15/2017 [facility] Hydralazine 10 mg, 0.5 mL, Route: IVP, Drug form: INJ, Q20Min, Dosing Weight 77.273, kg, PRN Elevated BP, Start date: 01/15/17 13:40:00 CDT, Duration: 2 doses or times, Stop date: Limited # of timesNotes: (Same as: Apresoline) Push over 5 minutes Inactive 01/15/2017 [facility] Labetalol 10 mg, 2 mL, Route: IVP, Drug form: INJ, Q5Min, Dosing Weight 77.273, kg, PRN Elevated BP, Start date: 01/15/17 13:40:00 CDT, Duration: 5 doses or times, Stop date: Limited # of times Inactive 01/15/2017 [facility] Metoprolol 1 mg, 1 mL, Route: IVP, Drug form: INJ, Q5Min, Dosing Weight 77.273, kg, PRN Other -See Comment, Start date: 01/15/17 13:40:00 CDT, Duration: 5 doses or times, Stop date: Limited # of timesNotes: (Same as: Lopressor) Push over 2 minutes Inactive 01/15/2017 [facility] fentaNYL (ANES) Route: IV, Drug form: INJ, ONCE, Stop date: 01/15/17 13:39:00 CDT Inactive 01/15/2017 [facility] succinylcholine (ANES) Route: IV, Drug form: INJ, ONCE, Stop date: 01/15/17 13:34:00 CDT Inactive 01/15/2017 [facility] acetaminophen (ANES) Route: IV, Drug form: INJ, ONCE, Stop date: 01/15/17 13:34:00 CDT Inactive 01/15/2017 [facility] propofol (ANES) Route: IV, Drug form: INJ, ONCE, Stop date: 01/15/17 13:34:00 CDT Inactive 01/15/2017 [facility] midazolam (ANES) Route: IV, Drug form: SOLN, ONCE, Stop date: 01/15/17 13:34:00 CDT Inactive 01/15/2017 [facility] piperacillin-tazobactam (ANES) (ANES) Route: IV, Drug form: INJ, Start date: 01/15/17 12:56:00 CDT, Stop date: 01/15/17 13:56:00 CDT Inactive 01/15/2017 [facility] LR 1000 mL INJ (ANES) Route: IV, Total Volume: 1,000, Start date: 01/15/17 12:45:00 CDT, Stop date: 01/15/17 13:45:00 CDT Inactive 01/15/2017 [facility] Enoxaparin 30 mg, 0.3 mL, Route: SUB-Q, Drug form: INJ, [id number], Dosing Weight 77.273, kg, Start date: 01/15/17 11:00:00 CDT, Duration: 30 day, Stop date: 02/14/17 6:00:00 CDTNotes: (Same as: Lovenox) No Longer Active 01/15/2017 [facility] sodium chloride 0.9% 1000 ml INJ 1,000 mL 1,000 mL, Rate: 75 ml/hr, Infuse over: 13.3 hr, Route: IV, Dosing Weight 77.273 kg, Total Volume: 1,000, Start date: 01/15/17 0:01:00 CDT, Duration: 12 hr, Stop date: 01/15/17 12:00:00 CDT Inactive 01/15/2017 [facility] vancomycin + sodium chloride 0.9% INJ 250 mL 1.5 gm, Route: IVPB, [id number], Start date: 01/14/17 22:00:00 CDT, Duration: 30 day, Stop date: 02/13/17 22:00:00 CDTNotes: TIME CRITICAL MEDICATION (Same As: Vancocin) Infusion rate 2001 mg: infuse over 2.5 hours MEDICATION WASTE Product Size: 1000 mg Product Wasted: ___ mg No Longer Active 01/15/2017 [facility] insulin detemir 7 unit, 0.07 mL, Route: SUB-Q, Drug form: SOLN, BID-Before Meals, Dosing Weight 77.273, kg, Start date: 01/14/17 16:30:00 CDT, Duration: 30 day, Stop date: 02/13/17 7:30:00 CDTNotes: Same as Levemir Do not hold insulin without contacting prescriber WASTE: F/P - Black; E - Municipal Trash Bin "single patient use only" No Longer Active 01/14/2017 [facility] Fentanyl 50 microgram, Route: IV, ONCE, Dosing Weight 77.273, kg, Start date: 01/13/17 18:25:00 CDT, Stop date: 01/13/17 18:25:00 CDT Inactive 01/13/2017 [facility] Bacitracin 0.5 UNT/MG / Polymyxin B 10 UNT/MG Topical Ointment [Polysporin] 1 appl, Route: TOP, TID, Drug form: OINT, Start date: 01/13/17 17:00:00 CDT, Duration: 3 day, Stop date: 01/16/17 13:00:00 CDTNotes: (Same As: Polysporin) No Longer Active 01/13/2017 [facility] Seroquel 50 mg, 2 tab, Route: PO, Drug form: TAB, QPM, Dosing Weight 77.273, kg, Start date: 01/13/17 17:00:00 CDT, Duration: 30 day, Stop date: 02/11/17 17:00:00 CDTNotes: (Same as: SEROquel) No Longer Active 01/13/2017 [facility] Effexor XR 75 mg, 1 cap, Route: PO, Drug form: ERCAP, Daily, Dosing Weight 77.273, kg, Start date: 01/13/17 9:00:00 CDT, Duration: 30 day, Stop date: 02/11/17 9:00:00 CDTNotes: Do not open, crush, or chew. (Same As: Effexor XR) No Longer Active 01/13/2017 [facility] vancomycin 1 gm, Route: IVPB, Drug form: INJ, ABXQ8H, Start date: 01/12/17 19:00:00 CDT, Duration: 30 day, Stop date: 02/11/17 12:00:00 CDTNotes: TIME CRITICAL MEDICATION (Same As: Vancocin) Infusion rate 2001 mg: infuse over 2.5 hours MEDICATION WASTE Product Size: 1000 mg Product Wasted: ___ mg No Longer Active 01/13/2017 [facility] 200 ACTUAT Albuterol 0.09 MG/ACTUAT Metered Dose Inhaler [ProAir HFA] 2 puff, INHALER, Q6H, PRN for wheezing, # 8.5 gm, 0 Refill(s) Active 01/12/2017 [facility] Methocarbamol 750 mg, PO, Q4H, 0 Refill(s) No Longer Active 01/12/2017 [facility] quetiapine 25 MG Oral Tablet [Seroquel] 50 mg=2 tab, PO, QPM, 0 Refill(s) No Longer Active 01/12/2017 [facility] 24 HR venlafaxine 37.5 MG Extended Release Capsule [Effexor] 75 mg=2 cap, PO, Daily, 0 Refill(s) No Longer Active 01/12/2017 [facility] hydrALAZINE (ANES) Route: IV, Drug form: INJ, ONCE, Stop date: 01/12/17 12:28:00 CDT Inactive 01/12/2017 [facility] midazolam (ANES) Route: IV, Drug form: SOLN, ONCE, Stop date: 01/12/17 12:14:00 CDT Inactive 01/12/2017 [facility] Ondansetron 4 mg, 2 mL, Route: IVP, Drug form: INJ, ONCE, Dosing Weight 77.273, kg, PRN Nausea & Vomiting, Start date: 01/12/17 11:45:00 CDTNotes: (Same as: Zofran) MEDICATION WASTE Product Size: 4 mg Product Wasted: ___ mg Inactive 01/12/2017 [facility] Naloxone 0.4 mg, 1 mL, Route: IVP, Drug form: INJ, Q2MIN, Dosing Weight 77.273, kg, PRN Narcotic Reversal, Start date: 01/12/17 11:45:00 CDT, Duration: 8 doses or times, Stop date: 01/13/17 0:00:00 CDTNotes: Same as Narcan Inactive 01/12/2017 [facility] Flumazenil 0.2 mg, 2 mL, Route: IVP, Drug form: INJ, PRN, Dosing Weight 77.273, kg, PRN Benzodiazepine Reversal, Initial dose, Start date: 01/12/17 11:45:00 CDT, Duration: 30 day, Stop date: 02/11/17 11:44:00 C DTNotes: (Same as: Romazicon) Inactive 01/12/2017 [facility] Oxycodone 5 mg, 1 tab, Route: PO, Drug form: TAB, Q4H, Dosing Weight 77.273, kg, PRN Pain Score 4-6, Start date: 01/12/17 11:45:00 CDT, Duration: 30 day, Stop date: 02/11/17 11:44:00 CDTNotes: (Same as: Roxicodone) Inactive 01/12/2017 [facility] Hydralazine 10 mg, 0.5 mL, Route: IVP, Drug form: INJ, Q20Min, Dosing Weight 77.273, kg, PRN Elevated BP, Start date: 01/12/17 11:45:00 CDT, Duration: 2 doses or times, Stop date: 01/13/17 0:00:00 CDTNotes: (Same as: Apresoline) Push over 5 minutes Inactive 01/12/2017 [facility] vancomycin (ANES) (ANES) Route: IV, Drug form: INJ, Start date: 01/12/17 11:16:00 CDT, Stop date: 01/12/17 12:16:00 CDT Inactive 01/12/2017 [facility] LR 1000 mL INJ (ANES) Route: IV, Total Volume: 1,000, Start date: 01/12/17 11:07:00 CDT, Stop date: 01/12/17 12:07:00 CDT Inactive 01/12/2017 [facility] Insulin, Aspart, Human 1 unit, 0.01 mL, Route: SUB-Q, Drug form: SOLN, Bedtime, Dosing Weight 77.273, kg, PRN Blood Glucose Results, Start date: 01/12/17 10:06:00 CDT, Duration: 30 day, Stop date: 02/11/17 10:05:00 CDTNotes: Roll in palms of hands gently; Do not shake vigorously. (Same as: NovoLOG) "single patient use only" WASTE: F/P - Black; E - Municipal Trash Bin Stable for 28 days at room temperature. Expires in days from Date No Longer Active 01/12/2017 [facility] Glucagon 1 mg, Route: IM, Drug form: PDR/INJ, PRN, Dosing Weight 77.273, kg, PRN Blood Glucose Results, Start date: 01/12/17 10:06:00 CDT, Duration: 30 day, Stop date: 02/11/17 10:05:00 CDT No Longer Active 01/12/2017 [facility] Dextrose 50% Syringe 25 gm, 50 mL, Route: IVP, Drug Form: INJ, Dosing Weight 77.273, kg, PRN, PRN Blood Glucose Results, Start date: 01/12/17 10:06:00 CDT, Duration: 30 day, Stop date: 02/11/17 10:05:00 CDT No Longer Active 01/12/2017 [facility] vancomycin 1.25 gm, 250 mL, Route: IVPB, Drug form: INJ, Q12H, Start date: 01/12/17 10:00:00 CDT, Duration: 30 day, Stop date: 02/10/17 22:00:00 CDTNotes: TIME CRITICAL MEDICATION Same as: Vancocin-NS (premixed) Infusion rate 2001 mg: infuse over 2.5 hours Inactive 01/12/2017 [facility] insulin detemir 10 unit, 0.1 mL, Route: SUB-Q, Drug form: SOLN, Q12H, Dosing Weight 77.273, kg, Start date: 01/12/17 10:00:00 CDT, Duration: 30 day, Stop date: 02/11/17 9:00:00 CDTNotes: Same as Levemir Do not hold insulin without contacting prescriber WASTE: F/P - Black; E - Municipal Trash Bin "single patient use only" No Longer Active 01/12/2017 [facility] Vancomycin 1,000 mg, Route: IVPB, Drug form: INJ, Q12H, Dosing Weight 77.273, kg, Start date: 01/12/17 10:00:00 CDT, Duration: 30 day, Stop date: 02/10/17 22:00:00 CDTNotes: TIME CRITICAL MEDICATION (Same As: Vanc ocin) Infusion rate 2001 mg: infuse over 2.5 hours MEDICATION WASTE Product Size: 1000 mg Product Wasted: ___ mg Inactive 01/12/2017 [facility] Lyrica 150 mg, 2 cap, Route: PO, Drug form: CAP, BID, Dosing Weight 77.273, kg, Start date: 01/12/17 9:00:00 CDT, Duration: 30 day, Stop date: 02/10/17 17:00:00 CDTNotes: (Same as: Lyrica) No Longer Active 01/12/2017 [facility] Lisinopril 10 mg, 1 tab, Route: PO, Drug form: TAB, Daily, Dosing Weight 77.273, kg, Start date: 01/12/17 9:00:00 CDT, Duration: 30 day, Stop date: 02/10/17 9:00:00 CDTNotes: (Same as: Prinivrosanna Zestril) No Longer Active 01/12/2017 [facility] insulin detemir 10 unit, 0.1 mL, Route: SUB-Q, Drug form: SOLN, Q12H, Dosing Weight 77.273, kg, Start date: 01/12/17 9:00:00 CDT, Stop date: 02/10/17 21:00:00 CDTNotes: Same as Levemir Do not hold insulin without co ntacting prescriber WASTE: F/P - Black; E - Municipal Trash Bin "single patient use only" Inactive 01/12/2017 [facility] Vitamin C 500 mg, 1 tab, Route: CHEW, Drug form: TAB, Daily, Dosing Weight 77.273, kg, Start date: 01/12/17 9:00:00 CDT, Duration: 30 day, Stop date: 02/10/17 9:00:00 CDTNotes: (Same as: Vitamin C) Inactive 01/12/2017 [facility] Docusate Sodium 100 MG Oral Capsule [Colace] 100 mg, 1 cap, Route: PO, Drug form: CAP, BID, Dosing Weight 77.273, kg, Start date: 01/12/17 9:00:00 CDT, Duration: 30 day, Stop date: 02/10/17 17:00:00 CDT Inactive 01/12/2017 [facility] Docusate 100 mg, 1 cap, Route: PO, Drug form: CAP, BID, Dosing Weight 77.273, kg, Start date: 01/12/17 9:00:00 CDT, Duration: 30 day, Stop date: 02/10/17 17:00:00 CDTNotes: (Same as: Colace) (Do Not Crush) No Longer Active 01/12/2017 [facility] Insulin, Aspart, Human 10 unit, 0.1 mL, Route: SUB-Q, Drug form: SOLN, TID-Before Meals, Dosing Weight 77.273, kg, PRN Blood Glucose Results, Start date: 01/12/17 6:46:00 CDT, Duration: 30 day, Stop date: 02/11/17 6:45:00 CDTNotes: Roll in palms of hands gently; Do not shake vigorously. (Same as: NovoLOG) "single patient use only" WASTE: F/P - Black; E - Municipal Trash Bin Stable for 28 days at room temperature. Expires in days from Date Inactive 01/12/2017 [facility] Dextrose 50% Syringe 12.5 gm, 25 mL, Route: IVP, Drug Form: INJ, Dosing Weight 77.273, kg, PRN, PRN Blood Glucose Results, Start date: 01/12/17 6:46:00 CDT, Duration: 30 day, Stop date: 02/11/17 6:45:00 CDT Inactive 01/12/2017 [facility] Glucagon 1 mg, Route: IM, Drug form: PDR/INJ, PRN, Dosing Weight 77.273, kg, PRN Blood Glucose Results, Start date: 01/12/17 6:46:00 CDT, Duration: 30 day, Stop date: 02/11/17 6:45:00 CDT Inactive 01/12/2017 [facility] Clonidine Hydrochloride 0.2 MG Oral Tablet 0.2 mg, 1 tab, Route: PO, Drug form: TAB, ONCE, Dosing Weight 77.273, kg, Start date: 01/12/17 6:04:00 CDT, Stop date: 01/12/17 6:04:00 CDTNotes: (Same As: Catapres) Inactive 01/12/2017 [facility] Acetaminophen 325 MG / Hydrocodone Bitartrate 5 MG Oral Tablet 1 tab, Route: PO, Drug Form: TAB, Dosing Weight 77.273, kg, Q4H, PRN Pain Score 4-6, Start date: 01/12/17 5:06:00 CDT, Duration: 30 day, Stop date: 02/11/17 5:05:00 CDTNotes: (Same as: [place] 325/5) Do not exceed 4gm/day of acetaminophen. No Longer Active 01/12/2017 [facility] Ondansetron 4 mg, 2 mL, Route: IVP, Drug form: INJ, Q6H, Dosing Weight 77.273, kg, PRN Nausea & Vomiting, Start date: 01/12/17 5:06:00 CDT, Duration: 30 day, Stop date: 02/11/17 5:05:00 CDTNotes: (Same as: Zofran) MEDICATION WASTE Product Size: 4 mg Product Wasted: ___ mg No Longer Active 01/12/2017 [facility] Morphine 2 mg, 1 mL, Route: IVP, Drug form: INJ, Q4H, Dosing Weight 77.273, kg, PRN Pain Score 7-10, Start date: 01/12/17 5:06:00 CDT, Duration: 30 day, Stop date: 02/11/17 5:05:00 CDTNotes: (Same as:MORPhine Sulfate) No Longer Active 01/12/2017 [facility] Zosyn 3.375 gm, Route: IVPB, Drug form: PDR/INJ, ABXQ8H, Dosing Weight 77.273, kg, CrCl >=20 ml/min infuse over 4 hours, Start date: 01/12/17 5:00:00 CDT, Duration: 30 day, Stop date: 02/11/17 2:00:00 CDTNotes: (Same as: Zosyn) Dosing based on Piperacillin component MEDICATION WASTE Product Size: 3375 mg Product Wasted: ___ mg No Longer Active 01/12/2017 [facility] lisinopril 10 mg oral tablet 10 mg=1 tab, PO, Daily, # 30 tab, 0 Refill(s) No Longer Active 01/12/2017 [facility] Lactated Ringers 1,000 mL 1,000 mL, Rate: 100 ml/hr, Infuse over: 10 hr, Route: IV, Dosing Weight 70.455 kg, Total Volume: 1,000, Start date: 01/12/17 2:52:00 CDT, Duration: 30 day, Stop date: 02/11/17 2:51:00 CDT No Longer Active 01/12/2017 [facility] cefepime 1 gm, Route: IVPB, Drug form: INJ, ONCE, Dosing Weight 70.455, kg, Priority: STAT, Start date: 01/12/17 2:32:00 CDT, Stop date: 01/12/17 2:32:00 CDTNotes: (Same As: Maxipime) MEDICATION WASTE Product Size: 1000 mg Product Wasted: ___ mg Inactive 01/12/2017 [facility] Morphine 4 mg, 1 mL, Route: IVP, Drug form: INJ, ONCE, Dosing Weight 70.455, kg, Priority: STAT, Start date: 01/12/17 1:52:00 CDT, Stop date: 01/12/17 1:52:00 CDTNotes: (Same as:MORPhine Sulfate) Inactive 01/12/2017 [facility] Ondansetron 4 mg, 2 mL, Route: IVP, Drug form: INJ, ONCE, Dosing Weight 70.455, kg, Priority: STAT, Start date: 01/12/17 1:52:00 CDT, Stop date: 01/12/17 1:52:00 CDTNotes: (Same as: Zofran) MEDICATION WASTE * Product Size: 4 mg Product Wasted: ___ mg Inactive 01/12/2017 [facility] Hydralazine 10 mg, Route: IVP, ONCE, Dosing Weight 70.455, kg, Priority: STAT, Start date: 01/12/17 0:15:00 CDT, Stop date: 01/12/17 0:15:00 CDT Inactive 01/12/2017 [facility] Vancomycin 1,250 mg, 250 mL, Route: IVPB, Drug form: INJ, ONCE, Dosing Weight 70.455, kg, Priority: STAT, Start date: 01/11/17 22:02:00 CDT, Stop date: 01/11/17 22:02:00 CDTNotes: TIME CRITICAL MEDICATION Same as: Vancocin-NS (premixed) Infusion rate 2001 mg: infuse over 2.5 hours Inactive 01/12/2017 [facility] Morphine 4 mg, 1 mL, Route: IVP, Drug form: INJ, ONCE, Dosing Weight 70.455, kg, Priority: STAT, Start date: 01/11/17 21:22:00 CDT, Stop date: 01/11/17 21:22:00 CDTNotes: (Same as:MORPhine Sulfate) Inactive 01/12/2017 [facility] Sodium Chloride 0.154 MEQ/ML Injectable Solution 1,000 mL, 1,000 ml/hr, Infuse Over: 1 hr, Route: IV, 1,000, Drug form: INJ, ONCE, Priority: STAT, Dosing Weight 70.455 kg, Start date: 01/11/17 21:22:00 CDT, Duration: 1 doses or times, Stop date: 01/11/17 21:22:00 CDT Inactive 01/12/2017 [facility] Cefuroxime Axetil (Cefuroxime) 250 Mg Tablet, 250 Mg Oral Twice A Day Active 11/08/2013 [facility] Duloxetine Hcl (Cymbalta) 60 Mg Capsule.dr, 60 Mg Oral Every Morning Active 11/08/2013 [facility] Lactulose (Kristalose) 20 Gm Packet, 20 G Oral Twice A Day Active 11/08/2013 [facility] Lorazepam (Ativan) 1 Mg Tablet, 0.5 Mg Oral Four Times Daily Active 11/08/2013 [facility] Phenazopyridine Hcl (Pyridium) 200 Mg Tablet, 200 Mg Oral Three Times A Day Active 11/08/2013 [facility] Phentermine Hcl 37.5 Mg Capsule, 37.5 Mg Oral Every Morning Active 11/08/2013 [facility] Fluoxetine , Active 11/12/2012 [facility] Pregabalin (Lyrica) 150 Mg Capsule, Mg Oral Twice A Day Active 11/12/2012 [facility] Insulin Glargine,Hum.rec.anlog (Lantus) 100 Unit/1 Ml Vial, Active 11/10/2012 [facility] Pantoprazole Sodium (Protonix) 40 Mg Suspdr.pkt, Active 11/10/2012 [facility] Trimethoprim/Sulfamethoxazole (Bactrim Ds) 1 Ea Tab, Active 06/19/2011 [facility] Levamir Twice A Day Active [facility] Lisinopril 10 Mg Tablet Daily Active [facility] Quetiapine Fumarate 25 Mg Tablet Twice A Day Active [facility] Spironolactone 100 Mg Tablet Daily Active [facility] Venlafaxine Hcl (Venlafaxine Hcl Er) 75 Mg Tab.er.24 Daily Active [facility] Allergies, Adverse Reactions, Alerts Substance Category Reaction Severity Reaction type Status Date Reported Comments Source Hydrocodone SICK Mild Propensity to adverse reactions Active 11/06/2018 [facility] Acetaminophen SICK Mild Propensity to adverse reactions Active 11/06/2018 [facility] [place] Assertion Drug allergy Active [facility] Immunizations Immunization Date Given Site Status Last Updated Comments Source influenza virus vaccine, inactivated 08/02/2018 Left Deltoid completed [facility] pneumococcal 23-valent vaccine 05/27/2015 Left deltoid completed [facility] Results Order Name Results Value Reference Range Date Interpretation Comments Source IMMUNOLOGY Hep B Core IgM Negative *NA* (02/24/19 8:39 PM) Negative 02/25/2019 [facility] IMMUNOLOGY Hep A IgM Negative *NA* (02/24/19 8:39 PM) Negative 02/25/2019 [facility] IMMUNOLOGY Hep C Ab Positive *ABN* (02/24/19 8:39 PM) 02/25/2019 [facility] IMMUNOLOGY Hep Bs Ag Negative *NA* (02/24/19 8:39 PM) Negative 02/25/2019 [facility] TUMOR MARKERS AFP 3.7 0.0 - 11.0 02/25/2019 [facility] MOLECULAR DIAGNOSTIC HCV RNA Log10 <1.2 02/24/2019 [facility] MOLECULAR DIAGNOSTIC HCV RNA VirLoad Not Detected (02/24/19 12:40 PM) 02/24/2019 [facility] CHEM PANEL Lipase Lvl 321 73 - 393 02/24/2019 [facility] CHEM PANEL B/C Ratio 19 6 - 25 02/24/2019 [facility] CHEM PANEL Calcium Lvl 8.2 8.5 - 10.5 02/24/2019 [facility] CHEM PANEL Albumin Lvl 2.6 3.5 - 5.0 02/24/2019 [facility] CHEM PANEL Total Protein 6.3 6.4 - 8.4 02/24/2019 [facility] CHEM PANEL A/G Ratio 0.7 0.7 - 1.6 02/24/2019 [facility] CHEM PANEL Globulin 3.7 2.7 - 4.2 02/24/2019 [facility] CHEM PANEL Alk Phos 142 39 - 136 02/24/2019 [facility] CHEM PANEL Bili Total 0.2 0.2 - 1.3 02/24/2019 [facility] CHEM PANEL eGFR 46 02/24/2019 Result Comment: The eGFR is calculated using the CKD-EPI formula. In most young, healthy individuals the eGFR will be >90 mL/min/1.73m2. The eGFR declines with age. An eGFR of 60-89 may be normal in some populations, particularly the elderly, for whom the CKD-EPI formula has not been extensively validated. Use of the eGFR is not recommended in the following populations:

Individuals with unstable creatinine concentrations, including patients and those with serious co-morbid conditions.

Patients with extremes in muscle mass or diet.

The data above are obtained from the National Kidney Disease Education Program (NKDEP) which additionally recommends that when the eGFR is used in patients with extremes of body mass index for purposes of drug dosing, the eGFR should be multiplied by the estimated BMI. [facility] CHEM PANEL ALT 41 0 - 65 02/24/2019 [facility] CHEM PANEL AST 42 0 - 37 02/24/2019 [facility] CHEM PANEL BUN 25 7 - 22 02/24/2019 [facility] CHEM PANEL Sodium Lvl 134 135 - 145 02/24/2019 [facility] CHEM PANEL Glucose Lvl 395 70 - 99 02/24/2019 [facility] CHEM PANEL Chloride Lvl 103 95 - 109 02/24/2019 [facility] CHEM PANEL Creatinine Lvl 1.34 0.50 - 1.40 02/24/2019 [facility] CHEM PANEL Potassium Lvl 5.0 3.5 - 5.1 02/24/2019 [facility] CHEM PANEL AGAP 16.0 10.0 - 20.0 02/24/2019 [facility] CHEM PANEL CO2 20 24 - 32 02/24/2019 [facility] CARDIAC ENZYMES Troponin-I <0.02 0.00 - 0.40 02/24/2019 [facility] CHEM PANEL Lipase Lvl 470 73 - 393 02/24/2019 [facility] ELECTROLYTES Potassium Lvl 4.5 3.5 - 5.1 02/23/2019 [facility] ELECTROLYTES AGAP 11.5 10.0 - 20.0 02/23/2019 [facility] ELECTROLYTES CO2 22 24 - 32 02/23/2019 [facility] ELECTROLYTES Chloride Lvl 110 95 - 109 02/23/2019 [facility] ELECTROLYTES Sodium Lvl 139 135 - 145 02/23/2019 [facility] ELECTROLYTES Creatinine Lvl 1.35 0.50 - 1.40 02/23/2019 [facility] ELECTROLYTES BUN 30 7 - 22 02/23/2019 [facility] ELECTROLYTES Glucose Lvl 224 70 - 99 02/23/2019 [facility] ELECTROLYTES eGFR 45 02/23/2019 Result Comment: The eGFR is calculated using the CKD-EPI formula. In most young, healthy individuals the eGFR will be >90 mL/min/1.73m2. The eGFR declines with age. An eGFR of 60-89 may be normal in some populations, particularly the elderly, for whom the CKD-EPI formula has not been extensively validated. Use of the eGFR is not recommended in the following populations:

Individuals with unstable creatinine concentrations, including patients and those with serious co-morbid conditions.

Patients with extremes in muscle mass or diet.

The data above are obtained from the National Kidney Disease Education Program (NKDEP) which additionally recommends that when the eGFR is used in patients with extremes of body mass index for purposes of drug dosing, the eGFR should be multiplied by the estimated BMI. [facility] ELECTROLYTES Calcium Lvl 7.7 8.5 - 10.5 02/23/2019 [facility] DRUG SCREEN UDS Note See Note (02/23/19 3:48 PM) 02/23/2019 [facility] DRUG SCREEN U Phencyclidine Scr Negative *NA* (02/23/19 3:48 PM) Negative 02/23/2019 [facility] DRUG SCREEN U Opiate Scr Positive *ABN* (02/23/19 3:48 PM) Negative 02/23/2019 [facility] DRUG SCREEN U Cannab Scr Positive *ABN* (02/23/19 3:48 PM) Negative 02/23/2019 [facility] DRUG SCREEN U Cocaine Scr Negative *NA* (02/23/19 3:48 PM) Negative 02/23/2019 [facility] DRUG SCREEN U Amph Scr Negative *NA* (02/23/19 3:48 PM) Negative 02/23/2019 [facility] DRUG SCREEN U Benzodiaz Scr Negative *NA* (02/23/19 3:48 PM) Negative 02/23/2019 [facility] DRUG SCREEN U Ryanne Scr Negative *NA* (02/23/19 3:48 PM) Negative 02/23/2019 [facility] URINE AND STOOL UA Color Ltyellow 02/23/2019 [facility] URINE AND STOOL UA Urobilinogen <=1.0 mg/dL 0.1 - 1.0 02/23/2019 [facility] URINE AND STOOL UA RBC 4 0 - 2 02/23/2019 [facility] URINE AND STOOL UA Sq Epi Occasional /LPF Few /LPF 02/23/2019 [facility] URINE AND STOOL UA Turbidity Clear (02/23/19 3:48 PM) Clear 02/23/2019 [facility] URINE AND STOOL UA Blood Small *ABN* (02/23/19 3:48 PM) Negative 02/23/2019 [facility] URINE AND STOOL UA Bili Negative *NA* (02/23/19 3:48 PM) Negative 02/23/2019 [facility] URINE AND STOOL UA Glucose 500 mg/dL Negative mg/dL 02/23/2019 [facility] URINE AND STOOL UA Protein 30 mg/dL Negative mg/dL 02/23/2019 [facility] URINE AND STOOL UA Nitrite Negative (02/23/19 3:48 PM) Negative 02/23/2019 [facility] URINE AND STOOL UA Ketones Negative mg/dL Negative mg/dL 02/23/2019 [facility] URINE AND STOOL UA Leuk Est Negative (02/23/19 3:48 PM) Negative 02/23/2019 [facility] URINE AND STOOL UA pH 6.0 5.0 - 8.0 02/23/2019 [facility] URINE AND STOOL UA Spec Grav 1.025 <=1.030 02/23/2019 [facility] CHEM PANEL Lipase Lvl 514 73 - 393 02/23/2019 [facility] CARDIAC ENZYMES BNP 52 <=100 pg/mL 02/23/2019 [facility] CARDIAC ENZYMES Troponin-I <0.02 0.00 - 0.40 02/23/2019 [facility] CARDIAC ENZYMES Total CK 134 12 - 191 02/23/2019 [facility] CHEM PANEL Ketone Quantitative 0.24 <=0.27 mmol/L 02/23/2019 [facility] CHEM PANEL Phosphorus 3.2 2.5 - 4.5 02/23/2019 [facility] CHEM PANEL Magnesium Lvl 2.2 1.8 - 2.4 02/23/2019 [facility] CHEM PANEL Lactic Acid Lvl 1.6 0.5 - 2.2 02/23/2019 [facility] CHEM PANEL eGFR 35 02/23/2019 Result Comment: The eGFR is calculated using the CKD-EPI formula. In most young, healthy individuals the eGFR will be >90 mL/min/1.73m2. The eGFR declines with age. An eGFR of 60-89 may be normal in some populations, particularly the elderly, for whom the CKD-EPI formula has not been extensively validated. Use of the eGFR is not recommended in the following populations:

Individuals with unstable creatinine concentrations, including patients and those with serious co-morbid conditions.

Patients with extremes in muscle mass or diet.

The data above are obtained from the National Kidney Disease Education Program (NKDEP) which additionally recommends that when the eGFR is used in patients with extremes of body mass index for purposes of drug dosing, the eGFR should be multiplied by the estimated BMI. [facility] CHEM PANEL Glucose Lvl 467 70 - 99 02/23/2019 Result Comment: Critical Result(s) called to Carmen plata 02/23/2019 13:28 _ by tan_. Read back OK. [facility] CHEM PANEL BUN 35 7 - 22 02/23/2019 [facility] CHEM PANEL AGAP 17.0 10.0 - 20.0 02/23/2019 [facility] CHEM PANEL B/C Ratio 21 6 - 25 02/23/2019 [facility] CHEM PANEL Calcium Lvl 8.4 8.5 - 10.5 02/23/2019 [facility] CHEM PANEL Chloride Lvl 100 95 - 109 02/23/2019 [facility] CHEM PANEL Creatinine Lvl 1.69 0.50 - 1.40 02/23/2019 [facility] CHEM PANEL Sodium Lvl 131 135 - 145 02/23/2019 [facility] CHEM PANEL Bili Total 0.4 0.2 - 1.3 02/23/2019 [facility] CHEM PANEL Alk Phos 161 39 - 136 02/23/2019 [facility] CHEM PANEL AST 36 0 - 37 02/23/2019 [facility] CHEM PANEL Total Protein 7.7 6.4 - 8.4 02/23/2019 [facility] CHEM PANEL Globulin 4.6 2.7 - 4.2 02/23/2019 [facility] CHEM PANEL Albumin Lvl 3.1 3.5 - 5.0 02/23/2019 [facility] CHEM PANEL ALT 33 0 - 65 02/23/2019 [facility] CHEM PANEL A/G Ratio 0.7 0.7 - 1.6 02/23/2019 [facility] CHEM PANEL CO2 20 24 - 32 02/23/2019 [facility] CHEM PANEL Potassium Lvl 6.0 3.5 - 5.1 02/23/2019 [facility] HEMATOLOGY PT 12.9 12.0 - 14.7 02/23/2019 [facility] HEMATOLOGY INR 0.99 0.85 - 1.17 02/23/2019 [facility] HEMATOLOGY MPV 7.6 7.4 - 10.4 02/23/2019 [facility] HEMATOLOGY Platelet 271 133 - 450 02/23/2019 [facility] HEMATOLOGY Hgb 12.2 12.0 - 16.0 02/23/2019 [facility] HEMATOLOGY WBC 8.0 3.7 - 10.4 02/23/2019 [facility] HEMATOLOGY Hct 37.1 36.0 - 48.0 02/23/2019 [facility] HEMATOLOGY MCH 27.2 27.0 - 31.0 02/23/2019 [facility] HEMATOLOGY MCHC 32.9 32.0 - 36.0 02/23/2019 [facility] HEMATOLOGY RBC 4.49 4.20 - 5.40 02/23/2019 [facility] HEMATOLOGY MCV 82.7 80.0 - 98.0 02/23/2019 [facility] RDW 13.9 11.5 - 14.5 02/23/2019 [facility] Eosinophils # 0.2 0.0 - 0.5 02/23/2019 [facility] Basophils # 0.1 0.0 - 0.2 02/23/2019 [facility] Monocytes # 0.3 0.0 - 0.8 02/23/2019 [facility] Lymphocytes # 2.1 1.0 - 5.5 02/23/2019 [facility] Lymphocytes 25.9 20.0 - 40.0 02/23/2019 [facility] Monocytes 3.7 2.0 - 12.0 02/23/2019 [facility] Plt Morph Normal (02/23/19 12:52 PM) Normal 02/23/2019 [facility] Segs 66.9 45.0 - 75.0 02/23/2019 [facility] Basophils 1.0 0.0 - 1.0 02/23/2019 [facility] Neutrophils # 5.3 1.5 - 8.1 02/23/2019 [facility] Eosinophils 2.5 0.0 - 4.0 02/23/2019 [facility] RBC Morph Normal (02/23/19 12:52 PM) Normal 02/23/2019 [facility] leukocytes automated count (number/volume) 8.07 4.8 - 10.8 11/06/2018 [facility] Blood erythrocytes automated count (number/volume) 4.47 3.6 - 5.1 11/06/2018 [facility] Blood hemoglobin measurement (moles/volume) 11.7 12.0 - 16.0 11/06/2018 [facility] Automated blood hematocrit (volume fraction) 35.6 34.2 - 44.1 11/06/2018 [facility] Automated erythrocyte mean corpuscular volume 79.6 81 - 99 11/06/2018 [facility] Automated erythrocyte mean corpuscular hemoglobin (mass per erythrocyte) 26.2 28 - 32 11/06/2018 [facility] Automated erythrocyte mean corpuscular hemoglobin concentration measurement (mass/volume) 32.9 31 - 35 11/06/2018 [facility] RDW BldCo-Rto 13.3 11.7 - 14.4 11/06/2018 [facility] Automated blood platelet count (count/volume) 236 140 - 360 11/06/2018 [facility] Automated blood segmented neutrophil count as percentage of total leukocytes 60.1 38.7 - 80.0 11/06/2018 [facility] Automated blood lymphocyte count as percentage ot total leukocytes 31.7 18.0 - 39.1 11/06/2018 [facility] Automated blood monocyte count as percentage of total leukocytes 5.3 4.4 - 11.3 11/06/2018 [facility] Automated blood eosinophil count as percentage of total leukocytes 2.1 0.0 - 6.0 11/06/2018 [facility] Automated blood basophil count as percentage of total leukocytes 0.4 0.0 - 1.0 11/06/2018 [facility] IM GRANULOCYTES % 0.4 0.0 - 1.0 11/06/2018 [facility] Automated blood neutrophil count 4.9 2.1 - 6.9 11/06/2018 [facility] Blood lymphocytes count (number/volume) 2.6 1.0 - 3.2 11/06/2018 [facility] Blood monocytes automated count (number/volume) 0.4 0.2 - 0.8 11/06/2018 [facility] Automated blood eosinophil count 0.2 0.0 - 0.4 11/06/2018 [facility] Automated blood basophil count (count/volume) 0.0 0.0 - 0.1 11/06/2018 [facility] Absolute Immature Granulocyte (auto 0.03 0 - 0.1 11/06/2018 [facility] Serum or plasma sodium measurement (moles/volume) 128 136 - 145 11/06/2018 [facility] Serum or plasma potassium measurement (moles/volume) 4.5 3.5 - 5.1 11/06/2018 [facility] Serum or plasma chloride measurement (moles/volume) 95 98 - 107 11/06/2018 [facility] Serum or plasma carbon dioxide, total measurement (moles/volume) 25 22 - 29 11/06/2018 [facility] Serum or plasma anion gap 12.5 8 - 16 11/06/2018 [facility] Serum or plasma urea nitrogen measurement (mass/volume) 30 7 - 26 11/06/2018 [facility] Serum or plasma creatinine measurement (mass/volume) 1.14 0.57 - 1.11 11/06/2018 [facility] Serum or plasma urea nitrogen/creatinine mass ratio 26 6 - 25 11/06/2018 [facility] Estimated glomerular filtration rate (GFR) determination 50 60 11/06/2018 [facility] Glucose measurement 511 74 - 118 11/06/2018 [facility] Serum or plasma calcium measurement (mass/volume) 10.0 8.4 - 10.2 11/06/2018 [facility] Serum or plasma total bilirubin measurement (mass/volume) 0.3 0.2 - 1.2 11/06/2018 [facility] Aspartate Amino Transf (AST/SGOT) 17 5 - 34 11/06/2018 [facility] Serum or plasma alanine aminotransferase measurement (enzymatic activity/volume) 19 0 - 55 11/06/2018 [facility] Serum or plasma protein measurement (mass/volume) 7.8 6.5 - 8.1 11/06/2018 [facility] Serum or plasma albumin measurement (mass/volume) 3.2 3.5 - 5.0 11/06/2018 [facility] Plasma globulin measurement (mass/volume) 4.6 2.3 - 3.5 11/06/2018 [facility] Serum or plasma albumin/globulin mass ratio 0.7 0.8 - 2.0 11/06/2018 [facility] Serum or plasma alkaline phosphatase measurement (enzymatic activity/volume) 181 40 - 150 11/06/2018 [facility] CHEM PANEL Lactic Acid Lvl 1.6 0.5 - 2.2 09/08/2018 [facility] CHEM PANEL eGFR 60 09/08/2018 Result Comment: The eGFR is calculated using the CKD-EPI formula. In most young, healthy individuals the eGFR will be >90 mL/min/1.73m2. The eGFR declines with age. An eGFR of 60-89 may be normal in some populations, particularly the elderly, for whom the CKD-EPI formula has not been extensively validated. Use of the eGFR is not recommended in the following populations:

Individuals with unstable creatinine concentrations, including patients and those with serious co-morbid conditions.

Patients with extremes in muscle mass or diet.

The data above are obtained from the National Kidney Disease Education Program (NKDEP) which additionally recommends that when the eGFR is used in patients with extremes of body mass index for purposes of drug dosing, the eGFR should be multiplied by the estimated BMI. [facility] CHEM PANEL Alk Phos 148 39 - 136 09/08/2018 [facility] CHEM PANEL Bili Total 0.4 0.2 - 1.3 09/08/2018 [facility] CHEM PANEL Calcium Lvl 8.6 8.5 - 10.5 09/08/2018 [facility] CHEM PANEL B/C Ratio 14 6 - 25 09/08/2018 [facility] CHEM PANEL Total Protein 7.2 6.4 - 8.4 09/08/2018 [facility] CHEM PANEL Albumin Lvl 3.0 3.5 - 5.0 09/08/2018 [facility] CHEM PANEL Globulin 4.2 2.7 - 4.2 09/08/2018 [facility] CHEM PANEL A/G Ratio 0.7 0.7 - 1.6 09/08/2018 [facility] CHEM PANEL ALT 24 0 - 65 09/08/2018 [facility] CHEM PANEL AST 20 0 - 37 09/08/2018 [facility] CHEM PANEL CO2 27 24 - 32 09/08/2018 [facility] CHEM PANEL Chloride Lvl 104 95 - 109 09/08/2018 [facility] CHEM PANEL Potassium Lvl 3.7 3.5 - 5.1 09/08/2018 [facility] CHEM PANEL AGAP 10.7 10.0 - 20.0 09/08/2018 [facility] CHEM PANEL Glucose Lvl 422 70 - 99 09/08/2018 Result Comment: Critical Result(s) called to arturo irby at 09/08/2018 17:10 by donna. Read back OK. [facility] CHEM PANEL BUN 15 7 - 22 09/08/2018 [facility] CHEM PANEL Creatinine Lvl 1.08 0.50 - 1.40 09/08/2018 [facility] CHEM PANEL Sodium Lvl 138 135 - 145 09/08/2018 [facility] HEMATOLOGY Hgb 11.6 12.0 - 16.0 09/08/2018 [facility] RBC 4.26 4.20 - 5.40 09/08/2018 [facility] HEMATOLOGY MCV 82.0 80.0 - 98.0 09/08/2018 [facility] Hct 35.0 36.0 - 48.0 09/08/2018 [facility] WBC 7.3 3.7 - 10.4 09/08/2018 [facility] MPV 7.5 7.4 - 10.4 09/08/2018 [facility] Platelet 196 133 - 450 09/08/2018 [facility] MCH 27.2 27.0 - 31.0 09/08/2018 [facility] MCHC 33.2 32.0 - 36.0 09/08/2018 [facility] RDW 14.2 11.5 - 14.5 09/08/2018 [facility] Segs 71.6 45.0 - 75.0 09/08/2018 [facility] Lymphocytes 22.9 20.0 - 40.0 09/08/2018 [facility] Basophils 0.2 0.0 - 1.0 09/08/2018 [facility] Eosinophils 1.1 0.0 - 4.0 09/08/2018 [facility] Monocytes 4.2 2.0 - 12.0 09/08/2018 [facility] Neutrophils # 5.2 1.5 - 8.1 09/08/2018 [facility] Eosinophils # 0.1 0.0 - 0.5 09/08/2018 [facility] Lymphocytes # 1.7 1.0 - 5.5 09/08/2018 [facility] Monocytes # 0.3 0.0 - 0.8 09/08/2018 [facility] CHEM PANEL eGFR 81 08/12/2018 Result Comment: The eGFR is calculated using the CKD-EPI formula. In most young, healthy individuals the eGFR will be >90 mL/min/1.73m2. The eGFR declines with age. An eGFR of 60-89 may be normal in some populations, particularly the elderly, for whom the CKD-EPI formula has not been extensively validated. Use of the eGFR is not recommended in the following populations:

Individuals with unstable creatinine concentrations, including patients and those with serious co-morbid conditions.

Patients with extremes in muscle mass or diet.

The data above are obtained from the National Kidney Disease Education Program (NKDEP) which additionally recommends that when the eGFR is used in patients with extremes of body mass index for purposes of drug dosing, the eGFR should be multiplied by the estimated BMI. [facility] CHEM PANEL Calcium Lvl 8.8 8.5 - 10.5 08/12/2018 [facility] CHEM PANEL AGAP 14.8 10.0 - 20.0 08/12/2018 [facility] CHEM PANEL Chloride Lvl 107 95 - 109 08/12/2018 [facility] CHEM PANEL CO2 21 24 - 32 08/12/2018 [facility] CHEM PANEL Creatinine Lvl 0.84 0.50 - 1.40 08/12/2018 [facility] CHEM PANEL Sodium Lvl 137 135 - 145 08/12/2018 [facility] CHEM PANEL Glucose Lvl 193 70 - 99 08/12/2018 [facility] CHEM PANEL BUN 20 7 - 22 08/12/2018 [facility] CHEM PANEL Potassium Lvl 5.8 3.5 - 5.1 08/12/2018 [facility] CARDIAC ENZYMES Troponin-I 0.03 0.00 - 0.40 08/12/2018 [facility] CARDIAC ENZYMES Troponin-I 0.03 0.00 - 0.40 08/11/2018 [facility] CARDIAC ENZYMES Troponin-I 0.05 0.00 - 0.40 08/11/2018 [facility] CHEM PANEL eGFR 69 08/11/2018 Result Comment: The eGFR is calculated using the CKD-EPI formula. In most young, healthy individuals the eGFR will be >90 mL/min/1.73m2. The eGFR declines with age. An eGFR of 60-89 may be normal in some populations, particularly the elderly, for whom the CKD-EPI formula has not been extensively validated. Use of the eGFR is not recommended in the following populations:

Individuals with unstable creatinine concentrations, including patients and those with serious co-morbid conditions.

Patients with extremes in muscle mass or diet.

The data above are obtained from the National Kidney Disease Education Program (NKDEP) which additionally recommends that when the eGFR is used in patients with extremes of body mass index for purposes of drug dosing, the eGFR should be multiplied by the estimated BMI. [facility] CHEM PANEL Creatinine Lvl 0.96 0.50 - 1.40 08/11/2018 [facility] CHEM PANEL Glucose Lvl 217 70 - 99 08/11/2018 [facility] CHEM PANEL Sodium Lvl 137 135 - 145 08/11/2018 [facility] CHEM PANEL Potassium Lvl 5.4 3.5 - 5.1 08/11/2018 [facility] CHEM PANEL BUN 20 7 - 22 08/11/2018 [facility] CHEM PANEL Chloride Lvl 106 95 - 109 08/11/2018 [facility] CHEM PANEL CO2 25 24 - 32 08/11/2018 [facility] CHEM PANEL Calcium Lvl 8.4 8.5 - 10.5 08/11/2018 [facility] CHEM PANEL AGAP 11.4 10.0 - 20.0 08/11/2018 [facility] HEMATOLOGY MPV 7.4 7.4 - 10.4 08/11/2018 [facility] HEMATOLOGY MCHC 32.8 32.0 - 36.0 08/11/2018 [facility] HEMATOLOGY Platelet 176 133 - 450 08/11/2018 [facility] HEMATOLOGY RDW 13.9 11.5 - 14.5 08/11/2018 [facility] HEMATOLOGY Hct 33.6 36.0 - 48.0 08/11/2018 [facility] HEMATOLOGY MCV 83.3 80.0 - 98.0 08/11/2018 [facility] MCH 27.3 27.0 - 31.0 08/11/2018 [facility] HEMATOLOGY Hgb 11.0 12.0 - 16.0 08/11/2018 [facility] HEMATOLOGY RBC 4.04 4.20 - 5.40 08/11/2018 [facility] HEMATOLOGY WBC 5.7 3.7 - 10.4 08/11/2018 [facility] DRUG SCREEN UDS Note See Note *NA* (08/10/18 11:56 PM) 08/11/2018 [facility] DRUG SCREEN U Amph Scr Negative *NA* (08/10/18 11:56 PM) Negative 08/11/2018 [facility] DRUG SCREEN U Cocaine Scr Negative *NA* (08/10/18 11:56 PM) Negative 08/11/2018 [facility] DRUG SCREEN U Benzodiaz Scr Negative *NA* (08/10/18 11:56 PM) Negative 08/11/2018 [facility] DRUG SCREEN U Ryanne Scr Negative *NA* (08/10/18 11:56 PM) Negative 08/11/2018 [facility] DRUG SCREEN U Phencyclidine Scr Negative *NA* (08/10/18 11:56 PM) Negative 08/11/2018 [facility] DRUG SCREEN U Opiate Scr Negative *NA* (08/10/18 11:56 PM) Negative 08/11/2018 [facility] DRUG SCREEN U Cannab Scr Negative *NA* (08/10/18 11:56 PM) Negative 08/11/2018 [facility] URINE AND STOOL UA Sq Epi Occasional /LPF Few /LPF 08/11/2018 [facility] URINE AND STOOL UA WBC 5 0 - 5 08/11/2018 [facility] URINE AND STOOL UA Bacteria Occasional /HPF None Seen /HPF 08/11/2018 [facility] URINE AND STOOL UA Leuk Est Small *ABN* (08/10/18 11:56 PM) Negative 08/11/2018 [facility] URINE AND STOOL UA RBC 8 0 - 2 08/11/2018 [facility] URINE AND STOOL UA Blood Small *ABN* (08/10/18 11:56 PM) Negative 08/11/2018 [facility] URINE AND STOOL UA Nitrite Negative (08/10/18 11:56 PM) Negative 08/11/2018 [facility] URINE AND STOOL UA Color Yellow *NA* (08/10/18 11:56 PM) Yellow 08/11/2018 [facility] URINE AND STOOL UA Spec Grav 1.015 <=1.030 08/11/2018 [facility] URINE AND STOOL UA Turbidity Clear (08/10/18 11:56 PM) Clear 08/11/2018 [facility] URINE AND STOOL UA Urobilinogen 0.2 0.1 - 1.0 08/11/2018 [facility] URINE AND STOOL UA Bili Negative *NA* (08/10/18 11:56 PM) Negative 08/11/2018 [facility] URINE AND STOOL UA Ketones Negative *NA* (08/10/18 11:56 PM) Negative 08/11/2018 [facility] URINE AND STOOL UA Glucose 500 mg/dL Negative mg/dL 08/11/2018 [facility] URINE AND STOOL UA Protein Trace *ABN* (08/10/18 11:56 PM) Negative 08/11/2018 [facility] URINE AND STOOL UA pH 6.5 5.0 - 8.0 08/11/2018 [facility] URINE AND STOOL UA Mucus Few /LPF None Seen /LPF 08/11/2018 [facility] ELECTROLYTES Potassium Lvl 4.9 3.5 - 5.1 08/10/2018 [facility] CARDIAC ENZYMES BNP 220 <=100 pg/mL 08/10/2018 [facility] CARDIAC ENZYMES Total CK 196 12 - 191 08/10/2018 [facility] CHEM PANEL Phosphorus 3.3 2.5 - 4.5 08/10/2018 [facility] CHEM PANEL Magnesium Lvl 2.1 1.8 - 2.4 08/10/2018 [facility] CHEM PANEL eGFR 54 08/10/2018 Result Comment: The eGFR is calculated using the CKD-EPI formula. In most young, healthy individuals the eGFR will be >90 mL/min/1.73m2. The eGFR declines with age. An eGFR of 60-89 may be normal in some populations, particularly the elderly, for whom the CKD-EPI formula has not been extensively validated. Use of the eGFR is not recommended in the following populations:

Individuals with unstable creatinine concentrations, including patients and those with serious co-morbid conditions.

Patients with extremes in muscle mass or diet.

The data above are obtained from the National Kidney Disease Education Program (NKDEP) which additionally recommends that when the eGFR is used in patients with extremes of body mass index for purposes of drug dosing, the eGFR should be multiplied by the estimated BMI. [facility] CHEM PANEL Albumin Lvl 3.1 3.5 - 5.0 08/10/2018 [facility] CHEM PANEL Calcium Lvl 8.4 8.5 - 10.5 08/10/2018 [facility] CHEM PANEL ALT 20 0 - 65 08/10/2018 [facility] CHEM PANEL Total Protein 7.2 6.4 - 8.4 08/10/2018 [facility] CHEM PANEL CO2 24 24 - 32 08/10/2018 [facility] CHEM PANEL Alk Phos 161 39 - 136 08/10/2018 [facility] CHEM PANEL Bili Total 0.3 0.2 - 1.3 08/10/2018 [facility] CHEM PANEL AST 25 0 - 37 08/10/2018 [facility] CHEM PANEL BUN 20 7 - 22 08/10/2018 [facility] CHEM PANEL Creatinine Lvl 1.18 0.50 - 1.40 08/10/2018 [facility] CHEM PANEL Glucose Lvl 263 70 - 99 08/10/2018 [facility] CHEM PANEL Chloride Lvl 107 95 - 109 08/10/2018 [facility] CHEM PANEL Sodium Lvl 136 135 - 145 08/10/2018 [facility] CHEM PANEL A/G Ratio 0.8 0.7 - 1.6 08/10/2018 [facility] CHEM PANEL AGAP 10.5 10.0 - 20.0 08/10/2018 [facility] CHEM PANEL B/C Ratio 17 6 - 25 08/10/2018 [facility] CHEM PANEL Globulin 4.1 2.7 - 4.2 08/10/2018 [facility] CHEM PANEL Lipase Lvl 306 73 - 393 08/10/2018 [facility] HEMATOLOGY Lymphocytes 24.6 20.0 - 40.0 08/10/2018 [facility] HEMATOLOGY Segs 66.8 45.0 - 75.0 08/10/2018 [facility] HEMATOLOGY Basophils # 0.1 0.0 - 0.2 08/10/2018 [facility] HEMATOLOGY Eosinophils # 0.2 0.0 - 0.5 08/10/2018 [facility] HEMATOLOGY Basophils 0.5 0.0 - 1.0 08/10/2018 [facility] HEMATOLOGY Monocytes 5.8 2.0 - 12.0 08/10/2018 [facility] HEMATOLOGY Eosinophils 2.3 0.0 - 4.0 08/10/2018 [facility] HEMATOLOGY Lymphocytes # 2.6 1.0 - 5.5 08/10/2018 [facility] HEMATOLOGY Monocytes # 0.6 0.0 - 0.8 08/10/2018 [facility] HEMATOLOGY Neutrophils # 7.0 1.5 - 8.1 08/10/2018 [facility] HEMATOLOGY INR 0.95 0.85 - 1.17 08/10/2018 [facility] HEMATOLOGY PT 12.5 12.0 - 14.7 08/10/2018 [facility] HEMATOLOGY PTT 31.9 22.9 - 35.8 08/10/2018 [facility] HEMATOLOGY MPV 7.3 7.4 - 10.4 08/10/2018 [facility] HEMATOLOGY Platelet 243 133 - 450 08/10/2018 [facility] HEMATOLOGY RDW 14.2 11.5 - 14.5 08/10/2018 [facility] HEMATOLOGY MCHC 32.9 32.0 - 36.0 08/10/2018 [facility] HEMATOLOGY RBC 4.37 4.20 - 5.40 08/10/2018 [facility] HEMATOLOGY WBC 10.5 3.7 - 10.4 08/10/2018 [facility] HEMATOLOGY Hgb 12.1 12.0 - 16.0 08/10/2018 [facility] HEMATOLOGY MCV 83.9 80.0 - 98.0 08/10/2018 [facility] HEMATOLOGY Hct 36.7 36.0 - 48.0 08/10/2018 [facility] HEMATOLOGY MCH 27.6 27.0 - 31.0 08/10/2018 [facility] DRUG SCREEN U Phencyclidine Scr Negative *NA* (08/01/18 5:18 PM) Negative 08/01/2018 [facility] DRUG SCREEN U Opiate Scr Positive *ABN* (08/01/18 5:18 PM) Negative 08/01/2018 [facility] DRUG SCREEN UDS Note See Note (08/01/18 5:18 PM) 08/01/2018 [facility] DRUG SCREEN U Ryanne Scr Negative *NA* (08/01/18 5:18 PM) Negative 08/01/2018 [facility] DRUG SCREEN U Cocaine Scr Negative *NA* (08/01/18 5:18 PM) Negative 08/01/2018 [facility] DRUG SCREEN U Benzodiaz Scr Negative *NA* (08/01/18 5:18 PM) Negative 08/01/2018 [facility] DRUG SCREEN U Amph Scr Positive *ABN* (08/01/18 5:18 PM) Negative 08/01/2018 [facility] DRUG SCREEN U Cannab Scr Positive *ABN* (08/01/18 5:18 PM) Negative 08/01/2018 [facility] CHEM PANEL eGFR 65 08/01/2018 Result Comment: The eGFR is calculated using the CKD-EPI formula. In most young, healthy individuals the eGFR will be >90 mL/min/1.73m2. The eGFR declines with age. An eGFR of 60-89 may be normal in some populations, particularly the elderly, for whom the CKD-EPI formula has not been extensively validated. Use of the eGFR is not recommended in the following populations:

Individuals with unstable creatinine concentrations, including patients and those with serious co-morbid conditions.

Patients with extremes in muscle mass or diet.

The data above are obtained from the National Kidney Disease Education Program (NKDEP) which additionally recommends that when the eGFR is used in patients with extremes of body mass index for purposes of drug dosing, the eGFR should be multiplied by the estimated BMI. [facility] CHEM PANEL Chloride Lvl 111 95 - 109 08/01/2018 [facility] CHEM PANEL CO2 24 24 - 32 08/01/2018 [facility] CHEM PANEL Sodium Lvl 139 135 - 145 08/01/2018 [facility] CHEM PANEL Potassium Lvl 4.3 3.5 - 5.1 08/01/2018 [facility] CHEM PANEL AGAP 8.3 10.0 - 20.0 08/01/2018 [facility] CHEM PANEL Calcium Lvl 8.0 8.5 - 10.5 08/01/2018 [facility] CHEM PANEL Glucose Lvl 118 70 - 99 08/01/2018 [facility] CHEM PANEL BUN 18 7 - 22 08/01/2018 [facility] CHEM PANEL Creatinine Lvl 1.00 0.50 - 1.40 08/01/2018 [facility] HEMATOLOGY MPV 7.5 7.4 - 10.4 08/01/2018 [facility] HEMATOLOGY Platelet 172 133 - 450 08/01/2018 [facility] HEMATOLOGY RDW 13.7 11.5 - 14.5 08/01/2018 [facility] HEMATOLOGY MCHC 32.6 32.0 - 36.0 08/01/2018 [facility] MCH 27.4 27.0 - 31.0 08/01/2018 [facility] HEMATOLOGY MCV 84.2 80.0 - 98.0 08/01/2018 [facility] HEMATOLOGY Hct 34.9 36.0 - 48.0 08/01/2018 [facility] HEMATOLOGY Hgb 11.4 12.0 - 16.0 08/01/2018 [facility] RBC 4.15 4.20 - 5.40 08/01/2018 [facility] HEMATOLOGY WBC 6.4 3.7 - 10.4 08/01/2018 [facility] HEMATOLOGY Hgb 11.0 12.0 - 16.0 07/31/2018 [facility] Hct 34.4 36.0 - 48.0 07/31/2018 [facility] CHEM PANEL eGFR 62 07/31/2018 Result Comment: The eGFR is calculated using the CKD-EPI formula. In most young, healthy individuals the eGFR will be >90 mL/min/1.73m2. The eGFR declines with age. An eGFR of 60-89 may be normal in some populations, particularly the elderly, for whom the CKD-EPI formula has not been extensively validated. Use of the eGFR is not recommended in the following populations:

Individuals with unstable creatinine concentrations, including patients and those with serious co-morbid conditions.

Patients with extremes in muscle mass or diet.

The data above are obtained from the National Kidney Disease Education Program (NKDEP) which additionally recommends that when the eGFR is used in patients with extremes of body mass index for purposes of drug dosing, the eGFR should be multiplied by the estimated BMI. [facility] CHEM PANEL AGAP 7.2 10.0 - 20.0 07/31/2018 [facility] CHEM PANEL CO2 26 24 - 32 07/31/2018 [facility] CHEM PANEL Chloride Lvl 111 95 - 109 07/31/2018 [facility] CHEM PANEL Creatinine Lvl 1.05 0.50 - 1.40 07/31/2018 [facility] CHEM PANEL BUN 25 7 - 22 07/31/2018 [facility] CHEM PANEL Glucose Lvl 184 70 - 99 07/31/2018 [facility] CHEM PANEL Calcium Lvl 7.9 8.5 - 10.5 07/31/2018 [facility] CHEM PANEL Sodium Lvl 140 135 - 145 07/31/2018 [facility] CHEM PANEL Potassium Lvl 4.2 3.5 - 5.1 07/31/2018 [facility] CHEM PANEL Magnesium Lvl 2.1 1.8 - 2.4 07/31/2018 [facility] HEMATOLOGY Platelet 156 133 - 450 07/31/2018 [facility] HEMATOLOGY MPV 7.5 7.4 - 10.4 07/31/2018 [facility] HEMATOLOGY MCV 83.1 80.0 - 98.0 07/31/2018 [facility] HEMATOLOGY Hct 36.3 36.0 - 48.0 07/31/2018 [facility] HEMATOLOGY MCHC 32.8 32.0 - 36.0 07/31/2018 [facility] HEMATOLOGY MCH 27.3 27.0 - 31.0 07/31/2018 [facility] HEMATOLOGY RBC 4.37 4.20 - 5.40 07/31/2018 [facility] HEMATOLOGY WBC 6.3 3.7 - 10.4 07/31/2018 [facility] HEMATOLOGY Hgb 11.9 12.0 - 16.0 07/31/2018 [facility] HEMATOLOGY RDW 13.7 11.5 - 14.5 07/31/2018 [facility] HEMATOLOGY Eosinophils 1.6 0.0 - 4.0 07/31/2018 [facility] HEMATOLOGY Basophils 0.3 0.0 - 1.0 07/31/2018 [facility] HEMATOLOGY Segs 61.5 45.0 - 75.0 07/31/2018 [facility] HEMATOLOGY Neutrophils # 3.9 1.5 - 8.1 07/31/2018 [facility] HEMATOLOGY Eosinophils # 0.1 0.0 - 0.5 07/31/2018 [facility] HEMATOLOGY Lymphocytes # 2.0 1.0 - 5.5 07/31/2018 [facility] HEMATOLOGY Monocytes # 0.4 0.0 - 0.8 07/31/2018 [facility] HEMATOLOGY Monocytes 5.6 2.0 - 12.0 07/31/2018 [facility] HEMATOLOGY Lymphocytes 31.0 20.0 - 40.0 07/31/2018 [facility] MOLECULAR DIAGNOSTIC C difficile DNA Negative (07/30/18 11:39 PM) Negative 07/31/2018 [facility] URINE AND STOOL Fecal Leukocyte Moderate (07/30/18 11:39 PM) 07/31/2018 [facility] URINE AND STOOL Occult Bld Stl Positive *ABN* (07/30/18 11:39 PM) Negative 07/31/2018 [facility] Culture: Stool Normal Enteric Apurva Isolated No Salmonella, Shigella, Or Campylobacter Isolated 07/31/2018 [facility] URINE AND STOOL UA Glucose Negative (07/30/18 3:19 PM) Negative 07/30/2018 [facility] URINE AND STOOL UA Protein 30 mg/dL Negative mg/dL 07/30/2018 [facility] URINE AND STOOL UA Ketones Trace *ABN* (07/30/18 3:19 PM) Negative 07/30/2018 [facility] URINE AND STOOL UA pH 6.5 5.0 - 8.0 07/30/2018 [facility] URINE AND STOOL UA Urobilinogen 0.2 0.1 - 1.0 07/30/2018 [facility] URINE AND STOOL UA Nitrite Positive *ABN* (07/30/18 3:19 PM) Negative 07/30/2018 [facility] URINE AND STOOL UA Leuk Est Moderate *ABN* (07/30/18 3:19 PM) Negative 07/30/2018 [facility] URINE AND STOOL UA Blood Moderate *ABN* (07/30/18 3:19 PM) Negative 07/30/2018 [facility] URINE AND STOOL UA Bili Negative *NA* (07/30/18 3:19 PM) Negative 07/30/2018 [facility] URINE AND STOOL UA Spec Grav 1.020 <=1.030 07/30/2018 [facility] URINE AND STOOL UA Color Yellow *NA* (07/30/18 3:19 PM) Yellow 07/30/2018 [facility] URINE AND STOOL UA Turbidity Cloudy *ABN* (07/30/18 3:19 PM) Clear 07/30/2018 [facility] URINE AND STOOL UA Sq Epi None Seen (07/30/18 3:19 PM) Few 07/30/2018 [facility] URINE AND STOOL UA RBC 17 0 - 2 07/30/2018 [facility] URINE AND STOOL UA WBC >182 0 - 5 07/30/2018 [facility] Culture: Urine <10,000 CFU/mL Skin Apurva 07/30/2018 [facility] CARDIAC ENZYMES Troponin-I <0.02 0.00 - 0.40 07/30/2018 [facility] CARDIAC ENZYMES Total CK 181 12 - 191 07/30/2018 [facility] CHEM [facility] Magnesium Lvl 2.7 1.8 - 2.4 07/30/2018 [facility] CHEM [facility] eGFR 38 07/30/2018 Result Comment: The eGFR is calculated using the CKD-EPI formula. In most young, healthy individuals the eGFR will be >90 mL/min/1.73m2. The eGFR declines with age. An eGFR of 60-89 may be normal in some populations, particularly the elderly, for whom the CKD-EPI formula has not been extensively validated. Use of the eGFR is not recommended in the following populations:

Individuals with unstable creatinine concentrations, including patients and those with serious co-morbid conditions.

Patients with extremes in muscle mass or diet.

The data above are obtained from the National Kidney Disease Education Program (NKDEP) which additionally recommends that when the eGFR is used in patients with extremes of body mass index for purposes of drug dosing, the eGFR should be multiplied by the estimated BMI. [facility] CHEM PANEL Bili Total 0.9 0.2 - 1.3 07/30/2018 [facility] CHEM PANEL BUN 40 7 - 22 07/30/2018 [facility] CHEM PANEL Glucose Lvl 326 70 - 99 07/30/2018 [facility] CHEM PANEL Calcium Lvl 8.7 8.5 - 10.5 07/30/2018 [facility] CHEM PANEL CO2 26 24 - 32 07/30/2018 [facility] CHEM PANEL Sodium Lvl 132 135 - 145 07/30/2018 [facility] CHEM PANEL Creatinine Lvl 1.56 0.50 - 1.40 07/30/2018 [facility] CHEM PANEL Chloride Lvl 98 95 - 109 07/30/2018 [facility] CHEM PANEL Potassium Lvl 5.2 3.5 - 5.1 07/30/2018 [facility] CHEM PANEL Total Protein 8.0 6.4 - 8.4 07/30/2018 [facility] CHEM PANEL Albumin Lvl 3.5 3.5 - 5.0 07/30/2018 [facility] CHEM PANEL Alk Phos 165 39 - 136 07/30/2018 [facility] CHEM PANEL ALT 29 0 - 65 07/30/2018 [facility] CHEM PANEL AST 39 0 - 37 07/30/2018 [facility] CHEM PANEL A/G Ratio 0.8 0.7 - 1.6 07/30/2018 [facility] CHEM PANEL AGAP 13.2 10.0 - 20.0 07/30/2018 [facility] CHEM PANEL B/C Ratio 26 6 - 25 07/30/2018 [facility] CHEM PANEL Globulin 4.5 2.7 - 4.2 07/30/2018 [facility] CHEM PANEL Lipase Lvl 205 73 - 393 07/30/2018 [facility] ENDOCRINOLOGY S Preg Negative *NA* (07/30/18 3:02 PM) Negative 07/30/2018 [facility] HEMATOLOGY Platelet 201 133 - 450 07/30/2018 [facility] HEMATOLOGY RDW 13.7 11.5 - 14.5 07/30/2018 [facility] HEMATOLOGY MPV 7.5 7.4 - 10.4 07/30/2018 [facility] HEMATOLOGY RBC 4.87 4.20 - 5.40 07/30/2018 [facility] HEMATOLOGY WBC 8.4 3.7 - 10.4 07/30/2018 [facility] HEMATOLOGY MCHC 33.2 32.0 - 36.0 07/30/2018 [facility] HEMATOLOGY MCH 27.4 27.0 - 31.0 07/30/2018 [facility] HEMATOLOGY MCV 82.4 80.0 - 98.0 07/30/2018 [facility] HEMATOLOGY INR 1.09 0.85 - 1.17 07/30/2018 [facility] HEMATOLOGY PT 13.9 12.0 - 14.7 07/30/2018 [facility] HEMATOLOGY PTT 31.0 22.9 - 35.8 07/30/2018 [facility] HEMATOLOGY Basophils 0.3 0.0 - 1.0 07/30/2018 [facility] HEMATOLOGY Eosinophils 1.1 0.0 - 4.0 07/30/2018 [facility] HEMATOLOGY Segs 80.2 45.0 - 75.0 07/30/2018 [facility] HEMATOLOGY Monocytes 3.8 2.0 - 12.0 07/30/2018 [facility] HEMATOLOGY Lymphocytes 14.6 20.0 - 40.0 07/30/2018 [facility] HEMATOLOGY Eosinophils # 0.1 0.0 - 0.5 07/30/2018 [facility] HEMATOLOGY Lymphocytes # 1.2 1.0 - 5.5 07/30/2018 [facility] HEMATOLOGY Monocytes # 0.3 0.0 - 0.8 07/30/2018 [facility] Neutrophils # 6.8 1.5 - 8.1 07/30/2018 [facility] CARDIAC ENZYMES Total CK 125 12 - 191 04/08/2018 [facility] CARDIAC ENZYMES Troponin-I <0.02 0.00 - 0.40 04/08/2018 [facility] CARDIAC ENZYMES CK MB 2.1 0.5 - 3.6 04/08/2018 [facility] CARDIAC ENZYMES CK MB Index 1.7 0.0 - 2.5 04/08/2018 [facility] CARDIAC ENZYMES BNP 77 <=100 pg/mL 04/08/2018 [facility] CHEM PANEL eGFR 32 04/08/2018 Result Comment: The eGFR is calculated using the CKD-EPI formula. In most young, healthy individuals the eGFR will be >90 mL/min/1.73m2. The eGFR declines with age. An eGFR of 60-89 may be normal in some populations, particularly the elderly, for whom the CKD-EPI formula has not been extensively validated. Use of the eGFR is not recommended in the following populations:

Individuals with unstable creatinine concentrations, including patients and those with serious co-morbid conditions.

Patients with extremes in muscle mass or diet.

The data above are obtained from the National Kidney Disease Education Program (NKDEP) which additionally recommends that when the eGFR is used in patients with extremes of body mass index for purposes of drug dosing, the eGFR should be multiplied by the estimated BMI. [facility] CHEM PANEL Chloride Lvl 103 95 - 109 04/08/2018 [facility] CHEM PANEL ALT 19 0 - 65 04/08/2018 [facility] CHEM PANEL AST 15 0 - 37 04/08/2018 [facility] CHEM PANEL Albumin Lvl 2.9 3.5 - 5.0 04/08/2018 [facility] CHEM PANEL CO2 27 24 - 32 04/08/2018 [facility] CHEM PANEL Total Protein 7.0 6.4 - 8.4 04/08/2018 [facility] CHEM PANEL Calcium Lvl 8.7 8.5 - 10.5 04/08/2018 [facility] CHEM PANEL B/C Ratio 22 6 - 25 04/08/2018 [facility] CHEM PANEL A/G Ratio 0.7 0.7 - 1.6 04/08/2018 [facility] CHEM PANEL Globulin 4.1 2.7 - 4.2 04/08/2018 [facility] CHEM PANEL Potassium Lvl 5.0 3.5 - 5.1 04/08/2018 [facility] CHEM PANEL Sodium Lvl 139 135 - 145 04/08/2018 [facility] CHEM PANEL Alk Phos 144 39 - 136 04/08/2018 [facility] CHEM PANEL Bili Total 0.1 0.2 - 1.3 04/08/2018 [facility] CHEM PANEL AGAP 14.0 10.0 - 20.0 04/08/2018 [facility] CHEM PANEL BUN 39 7 - 22 04/08/2018 [facility] CHEM PANEL Creatinine Lvl 1.80 0.50 - 1.40 04/08/2018 [facility] CHEM PANEL Glucose Lvl 279 70 - 99 04/08/2018 [facility] HEMATOLOGY RDW 14.1 11.5 - 14.5 04/08/2018 [facility] HEMATOLOGY MCHC 33.3 32.0 - 36.0 04/08/2018 [facility] HEMATOLOGY Platelet 144 133 - 450 04/08/2018 [facility] HEMATOLOGY MPV 8.3 7.4 - 10.4 04/08/2018 [facility] HEMATOLOGY RBC 3.65 4.20 - 5.40 04/08/2018 [facility] HEMATOLOGY Hgb 10.1 12.0 - 16.0 04/08/2018 [facility] HEMATOLOGY WBC 5.8 3.7 - 10.4 04/08/2018 [facility] HEMATOLOGY Hct 30.4 36.0 - 48.0 04/08/2018 [facility] HEMATOLOGY MCV 83.3 80.0 - 98.0 04/08/2018 [facility] HEMATOLOGY MCH 27.8 27.0 - 31.0 04/08/2018 [facility] HEMATOLOGY PT 12.9 12.0 - 14.7 04/08/2018 [facility] HEMATOLOGY INR 0.97 0.85 - 1.17 04/08/2018 [facility] HEMATOLOGY PTT 33.5 22.9 - 35.8 04/08/2018 [facility] HEMATOLOGY Segs 60.6 45.0 - 75.0 04/08/2018 [facility] HEMATOLOGY Eosinophils 5.7 0.0 - 4.0 04/08/2018 [facility] HEMATOLOGY Monocytes 6.5 2.0 - 12.0 04/08/2018 [facility] HEMATOLOGY Lymphocytes 26.7 20.0 - 40.0 04/08/2018 [facility] HEMATOLOGY Basophils 0.5 0.0 - 1.0 04/08/2018 [facility] HEMATOLOGY Lymphocytes # 1.5 1.0 - 5.5 04/08/2018 [facility] HEMATOLOGY Neutrophils # 3.5 1.5 - 8.1 04/08/2018 [facility] HEMATOLOGY Monocytes # 0.4 0.0 - 0.8 04/08/2018 [facility] HEMATOLOGY Eosinophils # 0.3 0.0 - 0.5 04/08/2018 [facility] TOXICOLOGY Vanco Lvl 25.8 03/30/2018 [facility] TOXICOLOGY Vanco Tr TND 0800 03/29/2018 [facility] TOXICOLOGY Vanco Tr 37.6 03/29/2018 [facility] LIPIDS Chol 178 <=199 mg/dL 03/29/2018 [facility] LIPIDS HDL 39 >=61 mg/dL 03/29/2018 [facility] LIPIDS CHD Risk 4.56 3.90 - 5.80 03/29/2018 [facility] LIPIDS Trig 234 <=149 mg/dL 03/29/2018 [facility] LIPIDS VLDL 47 03/29/2018 [facility] LIPIDS LDL (Calculated) 92 <=99 mg/dL 03/29/2018 [facility] ELECTROLYTES Chloride Lvl 106 95 - 109 03/28/2018 [facility] ELECTROLYTES Calcium Lvl 8.8 8.5 - 10.5 03/28/2018 [facility] ELECTROLYTES CO2 31 24 - 32 03/28/2018 [facility] ELECTROLYTES eGFR 46 03/28/2018 Result Comment: The eGFR is calculated using the CKD-EPI formula. In most young, healthy individuals the eGFR will be >90 mL/min/1.73m2. The eGFR declines with age. An eGFR of 60-89 may be normal in some populations, particularly the elderly, for whom the CKD-EPI formula has not been extensively validated. Use of the eGFR is not recommended in the following populations:

Individuals with unstable creatinine concentrations, including patients and those with serious co-morbid conditions.

Patients with extremes in muscle mass or diet.

The data above are obtained from the National Kidney Disease Education Program (NKDEP) which additionally recommends that when the eGFR is used in patients with extremes of body mass index for purposes of drug dosing, the eGFR should be multiplied by the estimated BMI. [facility] ELECTROLYTES AGAP 11.9 10.0 - 20.0 03/28/2018 [facility] ELECTROLYTES Glucose Lvl 164 70 - 99 03/28/2018 [facility] ELECTROLYTES Creatinine Lvl 1.34 0.50 - 1.40 03/28/2018 [facility] ELECTROLYTES Potassium Lvl 4.9 3.5 - 5.1 03/28/2018 [facility] ELECTROLYTES BUN 32 7 - 22 03/28/2018 [facility] ELECTROLYTES Sodium Lvl 144 135 - 145 03/28/2018 [facility] CARDIAC ENZYMES Total CK 36 12 - 191 03/28/2018 [facility] CARDIAC ENZYMES Troponin-I <0.02 0.00 - 0.40 03/28/2018 [facility] CARDIAC ENZYMES Total CK 48 12 - 191 03/28/2018 [facility] CARDIAC ENZYMES Troponin-I 0.02 0.00 - 0.40 03/28/2018 [facility] Culture: Urine No Growth 03/27/2018 [facility] ELECTROLYTES CO2 25 24 - 32 03/27/2018 [facility] ELECTROLYTES AGAP 16.2 10.0 - 20.0 03/27/2018 [facility] ELECTROLYTES Calcium Lvl 8.9 8.5 - 10.5 03/27/2018 [facility] ELECTROLYTES Glucose Lvl 169 70 - 99 03/27/2018 [facility] ELECTROLYTES BUN 34 7 - 22 03/27/2018 [facility] ELECTROLYTES Sodium Lvl 142 135 - 145 03/27/2018 [facility] ELECTROLYTES Potassium Lvl 5.2 3.5 - 5.1 03/27/2018 [facility] ELECTROLYTES Chloride Lvl 106 95 - 109 03/27/2018 [facility] ELECTROLYTES eGFR 46 03/27/2018 Result Comment: The eGFR is calculated using the CKD-EPI formula. In most young, healthy individuals the eGFR will be >90 mL/min/1.73m2. The eGFR declines with age. An eGFR of 60-89 may be normal in some populations, particularly the elderly, for whom the CKD-EPI formula has not been extensively validated. Use of the eGFR is not recommended in the following populations:

Individuals with unstable creatinine concentrations, including patients and those with serious co-morbid conditions.

Patients with extremes in muscle mass or diet.

The data above are obtained from the National Kidney Disease Education Program (NKDEP) which additionally recommends that when the eGFR is used in patients with extremes of body mass index for purposes of drug dosing, the eGFR should be multiplied by the estimated BMI. [facility] ELECTROLYTES Creatinine Lvl 1.35 0.50 - 1.40 03/27/2018 [facility] CARDIAC ENZYMES CK MB 1.2 0.5 - 3.6 03/27/2018 [facility] CARDIAC ENZYMES Total CK 44 12 - 191 03/27/2018 [facility] CARDIAC ENZYMES Troponin-I <0.02 0.00 - 0.40 03/27/2018 [facility] CARDIAC ENZYMES CK MB Index 2.7 0.0 - 2.5 03/27/2018 [facility] CHEM PANEL Magnesium Lvl 2.3 1.8 - 2.4 03/27/2018 [facility] CHEM PANEL Phosphorus 2.9 2.5 - 4.5 03/27/2018 [facility] CHEM PANEL eGFR 43 03/27/2018 Result Comment: The eGFR is calculated using the CKD-EPI formula. In most young, healthy individuals the eGFR will be >90 mL/min/1.73m2. The eGFR declines with age. An eGFR of 60-89 may be normal in some populations, particularly the elderly, for whom the CKD-EPI formula has not been extensively validated. Use of the eGFR is not recommended in the following populations:

Individuals with unstable creatinine concentrations, including patients and those with serious co-morbid conditions.

Patients with extremes in muscle mass or diet.

The data above are obtained from the National Kidney Disease Education Program (NKDEP) which additionally recommends that when the eGFR is used in patients with extremes of body mass index for purposes of drug dosing, the eGFR should be multiplied by the estimated BMI. [facility] CHEM PANEL Total Protein 7.9 6.4 - 8.4 03/27/2018 [facility] CHEM PANEL Albumin Lvl 3.2 3.5 - 5.0 03/27/2018 [facility] CHEM PANEL ALT 32 0 - 65 03/27/2018 [facility] CHEM PANEL Calcium Lvl 9.1 8.5 - 10.5 03/27/2018 [facility] CHEM PANEL CO2 28 24 - 32 03/27/2018 [facility] CHEM PANEL Chloride Lvl 104 95 - 109 03/27/2018 [facility] CHEM PANEL AGAP 9.7 10.0 - 20.0 03/27/2018 [facility] CHEM PANEL Bili Total 0.3 0.2 - 1.3 03/27/2018 [facility] CHEM PANEL AST 30 0 - 37 03/27/2018 [facility] CHEM PANEL Alk Phos 178 39 - 136 03/27/2018 [facility] CHEM PANEL A/G Ratio 0.7 0.7 - 1.6 03/27/2018 [facility] CHEM PANEL Globulin 4.7 2.7 - 4.2 03/27/2018 [facility] CHEM PANEL B/C Ratio 25 6 - 25 03/27/2018 [facility] CHEM PANEL Potassium Lvl 5.7 3.5 - 5.1 03/27/2018 [facility] CHEM PANEL Creatinine Lvl 1.42 0.50 - 1.40 03/27/2018 [facility] CHEM PANEL BUN 35 7 - 22 03/27/2018 [facility] CHEM PANEL Sodium Lvl 136 135 - 145 03/27/2018 [facility] CHEM PANEL Glucose Lvl 209 70 - 99 03/27/2018 [facility] HEMATOLOGY MCH 27.7 27.0 - 31.0 03/27/2018 [facility] HEMATOLOGY Hct 38.1 36.0 - 48.0 03/27/2018 [facility] HEMATOLOGY MCV 83.5 80.0 - 98.0 03/27/2018 [facility] MCHC 33.2 32.0 - 36.0 03/27/2018 [facility] HEMATOLOGY Platelet 189 133 - 450 03/27/2018 [facility] HEMATOLOGY MPV 7.5 7.4 - 10.4 03/27/2018 [facility] HEMATOLOGY RDW 14.4 11.5 - 14.5 03/27/2018 [facility] HEMATOLOGY RBC 4.56 4.20 - 5.40 03/27/2018 [facility] HEMATOLOGY Hgb 12.6 12.0 - 16.0 03/27/2018 [facility] HEMATOLOGY WBC 7.4 3.7 - 10.4 03/27/2018 [facility] HEMATOLOGY Basophils # 0.1 0.0 - 0.2 03/27/2018 [facility] HEMATOLOGY Lymphocytes # 1.6 1.0 - 5.5 03/27/2018 [facility] HEMATOLOGY Eosinophils # 0.2 0.0 - 0.5 03/27/2018 [facility] HEMATOLOGY Monocytes # 0.4 0.0 - 0.8 03/27/2018 [facility] HEMATOLOGY Eosinophils 2.3 0.0 - 4.0 03/27/2018 [facility] HEMATOLOGY Monocytes 5.6 2.0 - 12.0 03/27/2018 [facility] HEMATOLOGY Neutrophils # 5.2 1.5 - 8.1 03/27/2018 [facility] HEMATOLOGY Basophils 0.8 0.0 - 1.0 03/27/2018 [facility] HEMATOLOGY Segs 70.1 45.0 - 75.0 03/27/2018 [facility] HEMATOLOGY Lymphocytes 21.2 20.0 - 40.0 03/27/2018 [facility] URINE AND STOOL UA Color Ltyellow 03/27/2018 [facility] URINE AND STOOL UA Urobilinogen <=1.0 mg/dL 0.1 - 1.0 03/27/2018 [facility] URINE AND STOOL UA pH 7.0 5.0 - 8.0 03/27/2018 [facility] URINE AND STOOL UA Spec Grav 1.010 <=1.030 03/27/2018 [facility] URINE AND STOOL UA Turbidity Clear (03/27/18 2:16 PM) Clear 03/27/2018 [facility] URINE AND STOOL UA WBC 9 0 - 5 03/27/2018 [facility] URINE AND STOOL UA RBC 6 0 - 2 03/27/2018 [facility] URINE AND STOOL UA Glucose 500 mg/dL Negative mg/dL 03/27/2018 [facility] URINE AND STOOL UA Ketones Negative mg/dL Negative mg/dL 03/27/2018 [facility] URINE AND STOOL UA Protein 30 mg/dL Negative mg/dL 03/27/2018 [facility] URINE AND STOOL UA Bili Negative *NA* (03/27/18 2:16 PM) Negative 03/27/2018 [facility] URINE AND STOOL UA Leuk Est Small *ABN* (03/27/18 2:16 PM) Negative 03/27/2018 [facility] URINE AND STOOL UA Sq Epi Occasional /LPF Few /LPF 03/27/2018 [facility] URINE AND STOOL UA Blood Small *ABN* (03/27/18 2:16 PM) Negative 03/27/2018 [facility] URINE AND STOOL UA Nitrite Negative (03/27/18 2:16 PM) Negative 03/27/2018 [facility] CHEM PANEL eGFR 59 03/25/2018 Result Comment: The eGFR is calculated using the CKD-EPI formula. In most young, healthy individuals the eGFR will be >90 mL/min/1.73m2. The eGFR declines with age. An eGFR of 60-89 may be normal in some populations, particularly the elderly, for whom the CKD-EPI formula has not been extensively validated. Use of the eGFR is not recommended in the following populations:

Individuals with unstable creatinine concentrations, including patients and those with serious co-morbid conditions.

Patients with extremes in muscle mass or diet.

The data above are obtained from the National Kidney Disease Education Program (NKDEP) which additionally recommends that when the eGFR is used in patients with extremes of body mass index for purposes of drug dosing, the eGFR should be multiplied by the estimated BMI. [facility] CHEM PANEL AGAP 14.5 10.0 - 20.0 03/25/2018 [facility] CHEM PANEL Calcium Lvl 8.5 8.5 - 10.5 03/25/2018 [facility] CHEM PANEL CO2 25 24 - 32 03/25/2018 [facility] CHEM PANEL Chloride Lvl 108 95 - 109 03/25/2018 [facility] CHEM PANEL Potassium Lvl 4.5 3.5 - 5.1 03/25/2018 [facility] CHEM PANEL Sodium Lvl 143 135 - 145 03/25/2018 [facility] CHEM PANEL Creatinine Lvl 1.10 0.50 - 1.40 03/25/2018 [facility] CHEM PANEL BUN 27 7 - 22 03/25/2018 [facility] CHEM PANEL Glucose Lvl 161 70 - 99 03/25/2018 [facility] CHEM PANEL Magnesium Lvl 2.1 1.8 - 2.4 03/25/2018 [facility] HEMATOLOGY RBC 4.15 4.20 - 5.40 03/25/2018 [facility] HEMATOLOGY WBC 6.5 3.7 - 10.4 03/25/2018 [facility] HEMATOLOGY MCHC 33.1 32.0 - 36.0 03/25/2018 [facility] HEMATOLOGY MCH 27.2 27.0 - 31.0 03/25/2018 [facility] HEMATOLOGY Hgb 11.3 12.0 - 16.0 03/25/2018 [facility] HEMATOLOGY Hct 34.0 36.0 - 48.0 03/25/2018 [facility] HEMATOLOGY MCV 81.9 80.0 - 98.0 03/25/2018 [facility] HEMATOLOGY RDW 14.3 11.5 - 14.5 03/25/2018 [facility] HEMATOLOGY Platelet 179 133 - 450 03/25/2018 [facility] HEMATOLOGY MPV 7.2 7.4 - 10.4 03/25/2018 [facility] CHEM PANEL Magnesium Lvl 2.1 1.8 - 2.4 03/24/2018 [facility] ELECTROLYTES Sodium Lvl 141 135 - 145 03/24/2018 [facility] ELECTROLYTES BUN 27 7 - 22 03/24/2018 [facility] ELECTROLYTES Creatinine Lvl 1.01 0.50 - 1.40 03/24/2018 [facility] ELECTROLYTES CO2 29 24 - 32 03/24/2018 [facility] ELECTROLYTES AGAP 11.5 10.0 - 20.0 03/24/2018 [facility] ELECTROLYTES Calcium Lvl 8.7 8.5 - 10.5 03/24/2018 [facility] ELECTROLYTES Potassium Lvl 4.5 3.5 - 5.1 03/24/2018 [facility] ELECTROLYTES Chloride Lvl 105 95 - 109 03/24/2018 [facility] ELECTROLYTES eGFR 65 03/24/2018 Result Comment: The eGFR is calculated using the CKD-EPI formula. In most young, healthy individuals the eGFR will be >90 mL/min/1.73m2. The eGFR declines with age. An eGFR of 60-89 may be normal in some populations, particularly the elderly, for whom the CKD-EPI formula has not been extensively validated. Use of the eGFR is not recommended in the following populations:

Individuals with unstable creatinine concentrations, including patients and those with serious co-morbid conditions.

Patients with extremes in muscle mass or diet.

The data above are obtained from the National Kidney Disease Education Program (NKDEP) which additionally recommends that when the eGFR is used in patients with extremes of body mass index for purposes of drug dosing, the eGFR should be multiplied by the estimated BMI. [facility] ELECTROLYTES Glucose Lvl 88 70 - 99 03/24/2018 [facility] HEMATOLOGY RDW 14.2 11.5 - 14.5 03/24/2018 [facility] HEMATOLOGY Platelet 198 133 - 450 03/24/2018 [facility] HEMATOLOGY MPV 7.6 7.4 - 10.4 03/24/2018 [facility] HEMATOLOGY MCHC 33.9 32.0 - 36.0 03/24/2018 [facility] HEMATOLOGY WBC 7.1 3.7 - 10.4 03/24/2018 [facility] HEMATOLOGY Hct 35.0 36.0 - 48.0 03/24/2018 [facility] HEMATOLOGY MCV 82.3 80.0 - 98.0 03/24/2018 [facility] HEMATOLOGY RBC 4.25 4.20 - 5.40 03/24/2018 [facility] HEMATOLOGY Hgb 11.8 12.0 - 16.0 03/24/2018 [facility] MCH 27.9 27.0 - 31.0 03/24/2018 [facility] CHEM PANEL eGFR 54 03/23/2018 Result Comment: The eGFR is calculated using the CKD-EPI formula. In most young, healthy individuals the eGFR will be >90 mL/min/1.73m2. The eGFR declines with age. An eGFR of 60-89 may be normal in some populations, particularly the elderly, for whom the CKD-EPI formula has not been extensively validated. Use of the eGFR is not recommended in the following populations:

Individuals with unstable creatinine concentrations, including patients and those with serious co-morbid conditions.

Patients with extremes in muscle mass or diet.

The data above are obtained from the National Kidney Disease Education Program (NKDEP) which additionally recommends that when the eGFR is used in patients with extremes of body mass index for purposes of drug dosing, the eGFR should be multiplied by the estimated BMI. [facility] CHEM PANEL Potassium Lvl 4.9 3.5 - 5.1 03/23/2018 [facility] CHEM PANEL Sodium Lvl 139 135 - 145 03/23/2018 [facility] CHEM PANEL Chloride Lvl 103 95 - 109 03/23/2018 [facility] CHEM PANEL CO2 28 24 - 32 03/23/2018 [facility] CHEM PANEL AGAP 12.9 10.0 - 20.0 03/23/2018 [facility] CHEM PANEL Calcium Lvl 9.3 8.5 - 10.5 03/23/2018 [facility] CHEM PANEL Creatinine Lvl 1.17 0.50 - 1.40 03/23/2018 [facility] CHEM PANEL Glucose Lvl 133 70 - 99 03/23/2018 [facility] CHEM PANEL BUN 22 7 - 22 03/23/2018 [facility] CHEM PANEL Magnesium Lvl 2.2 1.8 - 2.4 03/23/2018 [facility] HEMATOLOGY MPV 7.5 7.4 - 10.4 03/23/2018 [facility] HEMATOLOGY WBC 7.1 3.7 - 10.4 03/23/2018 [facility] HEMATOLOGY MCV 82.6 80.0 - 98.0 03/23/2018 [facility] HEMATOLOGY MCH 27.8 27.0 - 31.0 03/23/2018 [facility] HEMATOLOGY MCHC 33.7 32.0 - 36.0 03/23/2018 [facility] HEMATOLOGY RBC 4.53 4.20 - 5.40 03/23/2018 [facility] HEMATOLOGY RDW 13.9 11.5 - 14.5 03/23/2018 [facility] HEMATOLOGY Platelet 218 133 - 450 03/23/2018 [facility] Hgb 12.6 12.0 - 16.0 03/23/2018 [facility] Hct 37.4 36.0 - 48.0 03/23/2018 [facility] HEMATOLOGY Eosinophils # 0.1 0.0 - 0.5 03/21/2018 [facility] HEMATOLOGY Neutrophils # 3.4 1.5 - 8.1 03/21/2018 [facility] HEMATOLOGY Lymphocytes # 1.4 1.0 - 5.5 03/21/2018 [facility] HEMATOLOGY Monocytes # 0.2 0.0 - 0.8 03/21/2018 [facility] HEMATOLOGY Lymphocytes 26.6 20.0 - 40.0 03/21/2018 [facility] HEMATOLOGY Basophils 0.5 0.0 - 1.0 03/21/2018 [facility] HEMATOLOGY Eosinophils 2.5 0.0 - 4.0 03/21/2018 [facility] HEMATOLOGY Segs 66.1 45.0 - 75.0 03/21/2018 [facility] Monocytes 4.3 2.0 - 12.0 03/21/2018 [facility] TOXICOLOGY Vanco Tr 17.8 03/21/2018 [facility] TOXICOLOGY Vanco Tr TND 0600 03/21/2018 [facility] HEMATOLOGY Sed Rate 55 0 - 20 03/20/2018 [facility] CHEM PANEL Globulin 4.0 2.7 - 4.2 03/19/2018 [facility] CHEM PANEL A/G Ratio 0.9 0.7 - 1.6 03/19/2018 [facility] CHEM PANEL B/C Ratio 18 6 - 25 03/19/2018 [facility] CHEM PANEL Total Protein 7.5 6.4 - 8.4 03/19/2018 [facility] CHEM PANEL Albumin Lvl 3.5 3.5 - 5.0 03/19/2018 [facility] CHEM PANEL AST 36 0 - 37 03/19/2018 [facility] CHEM PANEL Alk Phos 147 39 - 136 03/19/2018 [facility] CHEM PANEL Bili Total 0.4 0.2 - 1.3 03/19/2018 [facility] CHEM PANEL ALT 36 0 - 65 03/19/2018 [facility] HEMATOLOGY Lymphocytes # 2.3 1.0 - 5.5 03/19/2018 [facility] HEMATOLOGY Monocytes # 0.3 0.0 - 0.8 03/19/2018 [facility] HEMATOLOGY Eosinophils # 0.1 0.0 - 0.5 03/19/2018 [facility] HEMATOLOGY Monocytes 4.3 2.0 - 12.0 03/19/2018 [facility] HEMATOLOGY Eosinophils 2.0 0.0 - 4.0 03/19/2018 [facility] HEMATOLOGY Basophils 0.6 0.0 - 1.0 03/19/2018 [facility] HEMATOLOGY Neutrophils # 4.3 1.5 - 8.1 03/19/2018 [facility] HEMATOLOGY Segs 60.8 45.0 - 75.0 03/19/2018 [facility] HEMATOLOGY Lymphocytes 32.3 20.0 - 40.0 03/19/2018 [facility] URINE AND STOOL UA Ketones Negative *NA* (05/03/17 4:21 AM) Negative 05/03/2017 [facility] URINE AND STOOL UA Color Yellow *NA* (05/03/17 4:21 AM) Yellow 05/03/2017 [facility] URINE AND STOOL UA Bili Negative *NA* (05/03/17 4:21 AM) Negative 05/03/2017 [facility] URINE AND STOOL UA Protein 30 mg/dL Negative mg/dL 05/03/2017 [facility] URINE AND STOOL UA Glucose Negative (05/03/17 4:21 AM) Negative 05/03/2017 [facility] URINE AND STOOL UA Blood Small *ABN* (05/03/17 4:21 AM) Negative 05/03/2017 [facility] URINE AND STOOL UA Turbidity Clear (05/03/17 4:21 AM) Clear 05/03/2017 [facility] URINE AND STOOL UA Spec Grav 1.010 <=1.030 05/03/2017 [facility] URINE AND STOOL UA pH 5.5 5.0 - 8.0 05/03/2017 [facility] URINE AND STOOL UA Nitrite Negative (05/03/17 4:21 AM) Negative 05/03/2017 [facility] URINE AND STOOL UA Urobilinogen 0.2 0.1 - 1.0 05/03/2017 [facility] URINE AND STOOL UA Leuk Est Negative (05/03/17 4:21 AM) Negative 05/03/2017 [facility] URINE AND STOOL UA [place] Yeast Many /HPF None Seen /HPF 05/03/2017 [facility] URINE AND STOOL UA Mucus Few /LPF None Seen /LPF 05/03/2017 [facility] URINE AND STOOL UA Bacteria Occasional /HPF None Seen /HPF 05/03/2017 [facility] URINE AND STOOL UA RBC 87 0 - 2 05/03/2017 [facility] URINE AND STOOL UA WBC 23 0 - 5 05/03/2017 [facility] URINE AND STOOL UA Sq Epi Occasional /LPF Few /LPF 05/03/2017 [facility] [facility] CHEM PANEL eGFR 53 05/03/2017 Result Comment: The eGFR is calculated using the CKD-EPI formula. In most young, healthy individuals the eGFR will be >90 mL/min/1.73m2. The eGFR declines with age. An eGFR of 60-89 may be normal in some populations, particularly the elderly, for whom the CKD-EPI formula has not been extensively validated. Use of the eGFR is not recommended in the following populations:

Individuals with unstable creatinine concentrations, including patients and those with serious co-morbid conditions.

Patients with extremes in muscle mass or diet.

The data above are obtained from the National Kidney Disease Education Program (NKDEP) which additionally recommends that when the eGFR is used in patients with extremes of body mass index for purposes of drug dosing, the eGFR should be multiplied by the estimated BMI. [facility] CHEM PANEL ALT 18 0 - 65 05/03/2017 [facility] CHEM PANEL Alk Phos 112 39 - 136 05/03/2017 [facility] CHEM PANEL AST 20 0 - 37 05/03/2017 [facility] CHEM PANEL Bili Total 0.3 0.2 - 1.3 05/03/2017 [facility] CHEM PANEL Potassium Lvl 3.7 3.5 - 5.1 05/03/2017 [facility] CHEM PANEL BUN 27 7 - 22 05/03/2017 [facility] CHEM PANEL Glucose Lvl 192 70 - 99 05/03/2017 [facility] CHEM PANEL Sodium Lvl 136 135 - 145 05/03/2017 [facility] CHEM PANEL Creatinine Lvl 1.20 0.50 - 1.40 05/03/2017 [facility] CHEM PANEL Albumin Lvl 3.2 3.5 - 5.0 05/03/2017 [facility] CHEM PANEL Total Protein 7.5 6.4 - 8.4 05/03/2017 [facility] CHEM PANEL Chloride Lvl 100 95 - 109 05/03/2017 [facility] CHEM PANEL Calcium Lvl 8.8 8.5 - 10.5 05/03/2017 [facility] CHEM PANEL CO2 27 24 - 32 05/03/2017 [facility] CHEM PANEL B/C Ratio 22 6 - 25 05/03/2017 [facility] CHEM PANEL Globulin 4.3 2.7 - 4.2 05/03/2017 [facility] CHEM PANEL A/G Ratio 0.7 0.7 - 1.6 05/03/2017 [facility] CHEM PANEL AGAP 12.7 10.0 - 20.0 05/03/2017 [facility] CHEM PANEL Lipase Lvl 216 73 - 393 05/03/2017 [facility] HEMATOLOGY Segs-Bands # 6.6 1.5 - 8.1 05/03/2017 [facility] HEMATOLOGY Monocytes # 0.5 0.0 - 0.8 05/03/2017 [facility] HEMATOLOGY Lymphocytes # 2.5 1.0 - 5.5 05/03/2017 [facility] HEMATOLOGY Basophils 0.2 0.0 - 1.0 05/03/2017 [facility] HEMATOLOGY Eosinophils # 0.1 0.0 - 0.5 05/03/2017 [facility] HEMATOLOGY Lymphocytes 25.9 20.0 - 40.0 05/03/2017 [facility] HEMATOLOGY Monocytes 5.5 2.0 - 12.0 05/03/2017 [facility] HEMATOLOGY Segs 67.5 45.0 - 75.0 05/03/2017 [facility] HEMATOLOGY Eosinophils 0.9 0.0 - 4.0 05/03/2017 [facility] HEMATOLOGY WBC 9.8 3.7 - 10.4 05/03/2017 [facility] HEMATOLOGY RBC 4.76 4.20 - 5.40 05/03/2017 [facility] HEMATOLOGY Hct 39.3 36.0 - 48.0 05/03/2017 [facility] HEMATOLOGY MCV 82.5 80.0 - 98.0 05/03/2017 [facility] HEMATOLOGY Hgb 13.4 12.0 - 16.0 05/03/2017 [facility] HEMATOLOGY MCH 28.3 27.0 - 31.0 05/03/2017 [facility] HEMATOLOGY MCHC 34.2 32.0 - 36.0 05/03/2017 [facility] HEMATOLOGY RDW 12.8 11.5 - 14.5 05/03/2017 [facility] HEMATOLOGY MPV 7.2 7.4 - 10.4 05/03/2017 [facility] Platelet 196 133 - 450 05/03/2017 [facility] CHEM PANEL Magnesium Lvl 2.4 1.8 - 2.4 02/07/2017 [facility] CHEM PANEL Phosphorus 2.1 2.5 - 4.5 02/07/2017 [facility] CHEM PANEL A/G Ratio 0.7 0.7 - 1.6 02/07/2017 [facility] CHEM PANEL B/C Ratio 33 6 - 25 02/07/2017 [facility] CHEM PANEL Globulin 3.9 2.7 - 4.2 02/07/2017 [facility] CHEM PANEL AGAP 11.8 10.0 - 20.0 02/07/2017 [facility] CHEM PANEL eGFR 67 02/07/2017 Result Comment: The eGFR is calculated using the CKD-EPI formula. In most young, healthy individuals the eGFR will be >90 mL/min/1.73m2. The eGFR declines with age. An eGFR of 60-89 may be normal in some populations, particularly the elderly, for whom the CKD-EPI formula has not been extensively validated. Use of the eGFR is not recommended in the following populations:

Individuals with unstable creatinine concentrations, including patients and those with serious co-morbid conditions.

Patients with extremes in muscle mass or diet.

The data above are obtained from the National Kidney Disease Education Program (NKDEP) which additionally recommends that when the eGFR is used in patients with extremes of body mass index for purposes of drug dosing, the eGFR should be multiplied by the estimated BMI. [facility] CHEM PANEL BUN 33 7 - 22 02/07/2017 [facility] CHEM PANEL Glucose Lvl 183 70 - 99 02/07/2017 [facility] CHEM PANEL Potassium Lvl 4.8 3.5 - 5.1 02/07/2017 [facility] CHEM PANEL Sodium Lvl 142 135 - 145 02/07/2017 [facility] CHEM PANEL Creatinine Lvl 1.00 0.50 - 1.40 02/07/2017 [facility] CHEM PANEL Calcium Lvl 8.4 8.5 - 10.5 02/07/2017 [facility] CHEM PANEL CO2 25 24 - 32 02/07/2017 [facility] CHEM PANEL Chloride Lvl 110 95 - 109 02/07/2017 [facility] CHEM PANEL ALT 14 0 - 65 02/07/2017 [facility] CHEM PANEL Albumin Lvl 2.7 3.5 - 5.0 02/07/2017 [facility] CHEM PANEL Total Protein 6.6 6.4 - 8.4 02/07/2017 [facility] CHEM PANEL Bili Total 0.3 0.2 - 1.3 02/07/2017 [facility] CHEM PANEL Alk Phos 120 39 - 136 02/07/2017 [facility] CHEM PANEL AST 15 0 - 37 02/07/2017 [facility] HEMATOLOGY Eosinophils # 0.2 0.0 - 0.5 02/07/2017 [facility] HEMATOLOGY Monocytes # 0.3 0.0 - 0.8 02/07/2017 [facility] HEMATOLOGY Monocytes 4.2 2.0 - 12.0 02/07/2017 [facility] HEMATOLOGY Eosinophils 3.0 0.0 - 4.0 02/07/2017 [facility] HEMATOLOGY Basophils 0.4 0.0 - 1.0 02/07/2017 [facility] HEMATOLOGY Segs-Bands # 2.8 1.5 - 8.1 02/07/2017 [facility] HEMATOLOGY Lymphocytes # 3.8 1.0 - 5.5 02/07/2017 [facility] HEMATOLOGY Segs 39.5 45.0 - 75.0 02/07/2017 [facility] HEMATOLOGY Lymphocytes 52.9 20.0 - 40.0 02/07/2017 [facility] HEMATOLOGY MCH 27.7 27.0 - 31.0 02/07/2017 [facility] HEMATOLOGY MCV 82.1 80.0 - 98.0 02/07/2017 [facility] HEMATOLOGY RDW 16.2 11.5 - 14.5 02/07/2017 [facility] HEMATOLOGY MCHC 33.8 32.0 - 36.0 02/07/2017 [facility] HEMATOLOGY MPV 8.2 7.4 - 10.4 02/07/2017 [facility] HEMATOLOGY Platelet 116 133 - 450 02/07/2017 [facility] HEMATOLOGY WBC 7.1 3.7 - 10.4 02/07/2017 [facility] HEMATOLOGY RBC 3.79 4.20 - 5.40 02/07/2017 [facility] HEMATOLOGY Hgb 10.5 12.0 - 16.0 02/07/2017 [facility] HEMATOLOGY Hct 31.1 36.0 - 48.0 02/07/2017 [facility] PARATHYROID PROFILE Ca Ion WB 1.18 1.05 - 1.25 02/07/2017 [facility] PARATHYROID PROFILE Ca Norm WB 1.11 1.05 - 1.25 02/07/2017 [facility] MOLECULAR DIAGNOSTIC C difficile DNA Negative (02/06/17 1:25 PM) Negative 02/06/2017 [facility] CHEM PANEL Lactic Acid Lvl 1.9 0.5 - 2.2 02/06/2017 [facility] CHEM PANEL eGFR 63 02/06/2017 Result Comment: The eGFR is calculated using the CKD-EPI formula. In most young, healthy individuals the eGFR will be >90 mL/min/1.73m2. The eGFR declines with age. An eGFR of 60-89 may be normal in some populations, particularly the elderly, for whom the CKD-EPI formula has not been extensively validated. Use of the eGFR is not recommended in the following populations:

Individuals with unstable creatinine concentrations, including patients and those with serious co-morbid conditions.

Patients with extremes in muscle mass or diet.

The data above are obtained from the National Kidney Disease Education Program (NKDEP) which additionally recommends that when the eGFR is used in patients with extremes of body mass index for purposes of drug dosing, the eGFR should be multiplied by the estimated BMI. [facility] CHEM PANEL Calcium Lvl 7.6 8.5 - 10.5 02/06/2017 [facility] CHEM PANEL AGAP 11.2 10.0 - 20.0 02/06/2017 [facility] CHEM PANEL Creatinine Lvl 1.05 0.50 - 1.40 02/06/2017 [facility] CHEM PANEL CO2 25 24 - 32 02/06/2017 [facility] CHEM PANEL Potassium Lvl 5.2 3.5 - 5.1 02/06/2017 [facility] CHEM PANEL BUN 36 7 - 22 02/06/2017 [facility] CHEM PANEL Sodium Lvl 139 135 - 145 02/06/2017 [facility] CHEM PANEL Chloride Lvl 108 95 - 109 02/06/2017 [facility] CHEM PANEL Glucose Lvl 206 70 - 99 02/06/2017 [facility] HEMATOLOGY Hct 29.6 36.0 - 48.0 02/06/2017 [facility] HEMATOLOGY Hgb 10.0 12.0 - 16.0 02/06/2017 [facility] URINE AND STOOL Occult Bld Stl Negative (02/06/17 9:42 AM) Negative 02/06/2017 [facility] URINE AND STOOL Fecal Leukocyte None Seen (02/06/17 9:42 AM) 02/06/2017 [facility] CHEM PANEL Magnesium Lvl 1.7 1.8 - 2.4 02/06/2017 [facility] CHEM PANEL Lactic Acid Lvl 2.1 0.5 - 2.2 02/06/2017 [facility] CHEM PANEL Phosphorus 3.0 2.5 - 4.5 02/06/2017 [facility] ELECTROLYTES AGAP 13.4 10.0 - 20.0 02/06/2017 [facility] ELECTROLYTES CO2 22 24 - 32 02/06/2017 [facility] ELECTROLYTES Potassium Lvl 5.4 3.5 - 5.1 02/06/2017 [facility] ELECTROLYTES Chloride Lvl 113 95 - 109 02/06/2017 [facility] ELECTROLYTES Sodium Lvl 143 135 - 145 02/06/2017 [facility] ELECTROLYTES Creatinine Lvl 1.09 0.50 - 1.40 02/06/2017 [facility] ELECTROLYTES BUN 47 7 - 22 02/06/2017 [facility] ELECTROLYTES Glucose Lvl 136 70 - 99 02/06/2017 [facility] ELECTROLYTES eGFR 60 02/06/2017 Result Comment: The eGFR is calculated using the CKD-EPI formula. In most young, healthy individuals the eGFR will be >90 mL/min/1.73m2. The eGFR declines with age. An eGFR of 60-89 may be normal in some populations, particularly the elderly, for whom the CKD-EPI formula has not been extensively validated. Use of the eGFR is not recommended in the following populations:

Individuals with unstable creatinine concentrations, including patients and those with serious co-morbid conditions.

Patients with extremes in muscle mass or diet.

The data above are obtained from the National Kidney Disease Education Program (NKDEP) which additionally recommends that when the eGFR is used in patients with extremes of body mass index for purposes of drug dosing, the eGFR should be multiplied by the estimated BMI. [facility] ELECTROLYTES Calcium Lvl 8.4 8.5 - 10.5 02/06/2017 [facility] PARATHYROID PROFILE Ca Ion WB 1.18 1.05 - 1.25 02/06/2017 [facility] PARATHYROID PROFILE Ca Norm WB 1.12 1.05 - 1.25 02/06/2017 [facility] CHEM PANEL Magnesium Lvl 1.7 1.8 - 2.4 02/06/2017 [facility] CHEM PANEL Phosphorus 3.6 2.5 - 4.5 02/06/2017 [facility] CHEM PANEL Bili Total 0.3 0.2 - 1.3 02/06/2017 [facility] CHEM PANEL AST 12 0 - 37 02/06/2017 [facility] CHEM PANEL Alk Phos 102 39 - 136 02/06/2017 [facility] CHEM PANEL A/G Ratio 0.7 0.7 - 1.6 02/06/2017 [facility] CHEM PANEL ALT 15 0 - 65 02/06/2017 [facility] CHEM PANEL Total Protein 6.4 6.4 - 8.4 02/06/2017 [facility] CHEM PANEL B/C Ratio 44 6 - 25 02/06/2017 [facility] CHEM PANEL Globulin 3.7 2.7 - 4.2 02/06/2017 [facility] CHEM PANEL Albumin Lvl 2.7 3.5 - 5.0 02/06/2017 [facility] CHEM PANEL Lactic Acid Lvl 2.2 0.5 - 2.2 02/06/2017 [facility] HEMATOLOGY PTT 29.0 22.9 - 35.8 02/06/2017 [facility] HEMATOLOGY PT 14.2 12.0 - 14.7 02/06/2017 [facility] HEMATOLOGY INR 1.08 0.85 - 1.17 02/06/2017 [facility] HEMATOLOGY Segs 50.8 45.0 - 75.0 02/06/2017 [facility] HEMATOLOGY Lymphocytes # 3.1 1.0 - 5.5 02/06/2017 [facility] HEMATOLOGY Segs-Bands # 3.6 1.5 - 8.1 02/06/2017 [facility] HEMATOLOGY Eosinophils # 0.1 0.0 - 0.5 02/06/2017 [facility] HEMATOLOGY Eosinophils 1.7 0.0 - 4.0 02/06/2017 [facility] HEMATOLOGY Basophils 0.4 0.0 - 1.0 02/06/2017 [facility] HEMATOLOGY Monocytes 4.1 2.0 - 12.0 02/06/2017 [facility] HEMATOLOGY Monocytes # 0.3 0.0 - 0.8 02/06/2017 [facility] HEMATOLOGY Lymphocytes 43.0 20.0 - 40.0 02/06/2017 [facility] HEMATOLOGY Platelet 112 133 - 450 02/06/2017 [facility] HEMATOLOGY MCHC 34.1 32.0 - 36.0 02/06/2017 [facility] HEMATOLOGY RDW 16.1 11.5 - 14.5 02/06/2017 [facility] HEMATOLOGY MCH 27.8 27.0 - 31.0 02/06/2017 [facility] HEMATOLOGY Hct 29.0 36.0 - 48.0 02/06/2017 [facility] HEMATOLOGY MCV 81.5 80.0 - 98.0 02/06/2017 [facility] HEMATOLOGY RBC 3.55 4.20 - 5.40 02/06/2017 [facility] HEMATOLOGY Hgb 9.9 12.0 - 16.0 02/06/2017 [facility] HEMATOLOGY WBC 7.1 3.7 - 10.4 02/06/2017 [facility] HEMATOLOGY MPV 8.0 7.4 - 10.4 02/06/2017 [facility] IMMUNOLOGY Hep Bs Ag Negative *NA* (02/06/17 2:04 AM) Negative 02/06/2017 [facility] IMMUNOLOGY Hep A IgM Negative *NA* (02/06/17 2:04 AM) Negative 02/06/2017 [facility] IMMUNOLOGY Hep C Ab Positive *ABN* (02/06/17 2:04 AM) 02/06/2017 [facility] IMMUNOLOGY Hep B Core IgM Negative *NA* (02/06/17 2:04 AM) Negative 02/06/2017 [facility] IMMUNOLOGY HIV. Negative (02/06/17 2:04 AM) Negative 02/06/2017 [facility] SPECIAL CHEMISTRY Hgb A1C 8.5 <=5.6 % 02/06/2017 [facility] CHEM PANEL Lactic Acid WB 2.4 0.5 - 2.2 02/06/2017 [facility] CHEM PANEL Lactic Acid WB 2.7 0.5 - 2.2 02/06/2017 [facility] CHEM PANEL Lactic Acid WB 2.1 0.5 - 2.2 02/05/2017 [facility] URINE AND STOOL UA Nitrite Negative (02/05/17 3:03 PM) Negative 02/05/2017 [facility] URINE AND STOOL UA Urobilinogen 0.2 0.1 - 1.0 02/05/2017 [facility] URINE AND STOOL UA Leuk Est Negative (02/05/17 3:03 PM) Negative 02/05/2017 [facility] URINE AND STOOL UA Blood Negative (02/05/17 3:03 PM) Negative 02/05/2017 [facility] URINE AND STOOL UA Bili Negative *NA* (02/05/17 3:03 PM) Negative 02/05/2017 [facility] URINE AND STOOL UA Ketones Negative mg/dL Negative mg/dL 02/05/2017 [facility] URINE AND STOOL UA Glucose 500 mg/dL Negative mg/dL 02/05/2017 [facility] URINE AND STOOL UA Protein Negative mg/dL Negative mg/dL 02/05/2017 [facility] URINE AND STOOL UA pH 5.5 5.0 - 8.0 02/05/2017 [facility] URINE AND STOOL UA Spec Grav 1.015 <=1.030 02/05/2017 [facility] URINE AND STOOL UA Turbidity Clear (02/05/17 3:03 PM) Clear 02/05/2017 [facility] URINE AND STOOL UA Color Yellow *NA* (02/05/17 3:03 PM) Yellow 02/05/2017 [facility] URINE AND STOOL UA Sq Epi Rare /LPF Few /LPF 02/05/2017 [facility] URINE AND STOOL UA WBC None Seen (02/05/17 3:03 PM) None Seen 02/05/2017 [facility] URINE AND STOOL UA RBC None Seen (02/05/17 3:03 PM) 0 - 2 02/05/2017 [facility] URINE AND STOOL UA Amorph Ginna Occasional /HPF None Seen /HPF 02/05/2017 [facility] CARDIAC ENZYMES Total CK 38 12 - 191 02/05/2017 [facility] MYOGLOBIN Myoglobin 34 25 - 72 02/05/2017 [facility] HEMATOLOGY Sed Rate 32 0 - 20 02/05/2017 [facility] IMMUNOLOGY C-REACTIVE PROTEIN <2.9 (02/05/17 2:41 PM) <=2.9 02/05/2017 [facility] CHEM PANEL Bili Indirect 0.3 0.0 - 1.0 02/05/2017 [facility] CHEM PANEL Globulin 5.3 2.7 - 4.2 02/05/2017 [facility] CHEM PANEL A/G Ratio 0.7 0.7 - 1.6 02/05/2017 [facility] CHEM PANEL Bili Direct 0.1 0.0 - 0.3 02/05/2017 [facility] CHEM PANEL Bili Total 0.4 0.2 - 1.3 02/05/2017 [facility] CHEM PANEL Alk Phos 145 39 - 136 02/05/2017 [facility] CHEM PANEL AST 21 0 - 37 02/05/2017 [facility] CHEM PANEL ALT 16 0 - 65 02/05/2017 [facility] CHEM PANEL Total Protein 9.0 6.4 - 8.4 02/05/2017 [facility] CHEM PANEL Albumin Lvl 3.7 3.5 - 5.0 02/05/2017 [facility] CARDIAC ENZYMES Troponin-I <0.02 0.00 - 0.40 02/05/2017 [facility] HEMATOLOGY Basophils # 0.1 0.0 - 0.2 02/05/2017 [facility] HEMATOLOGY Lymphocytes # 2.9 1.0 - 5.5 02/05/2017 [facility] HEMATOLOGY Eosinophils # 0.2 0.0 - 0.5 02/05/2017 [facility] HEMATOLOGY Monocytes # 0.2 0.0 - 0.8 02/05/2017 [facility] HEMATOLOGY Monocytes 2.8 2.0 - 12.0 02/05/2017 [facility] HEMATOLOGY Basophils 0.7 0.0 - 1.0 02/05/2017 [facility] HEMATOLOGY Segs-Bands # 4.9 1.5 - 8.1 02/05/2017 [facility] HEMATOLOGY Eosinophils 2.1 0.0 - 4.0 02/05/2017 [facility] HEMATOLOGY Lymphocytes 35.3 20.0 - 40.0 02/05/2017 [facility] HEMATOLOGY Segs 59.1 45.0 - 75.0 02/05/2017 [facility] HEMATOLOGY RBC 4.84 4.20 - 5.40 02/05/2017 [facility] HEMATOLOGY WBC 8.3 3.7 - 10.4 02/05/2017 [facility] HEMATOLOGY MCHC 32.9 32.0 - 36.0 02/05/2017 [facility] HEMATOLOGY MCH 27.3 27.0 - 31.0 02/05/2017 [facility] HEMATOLOGY MCV 83.1 80.0 - 98.0 02/05/2017 [facility] HEMATOLOGY RDW 16.5 11.5 - 14.5 02/05/2017 [facility] HEMATOLOGY MPV 8.4 7.4 - 10.4 02/05/2017 [facility] HEMATOLOGY Platelet 182 133 - 450 02/05/2017 [facility] CHEM PANEL Magnesium Lvl 1.8 1.8 - 2.4 01/19/2017 [facility] CHEM PANEL eGFR 76 01/19/2017 Result Comment: The eGFR is calculated using the CKD-EPI formula. In most young, healthy individuals the eGFR will be >90 mL/min/1.73m2. The eGFR declines with age. An eGFR of 60-89 may be normal in some populations, particularly the elderly, for whom the CKD-EPI formula has not been extensively validated. Use of the eGFR is not recommended in the following populations:

Individuals with unstable creatinine concentrations, including patients and those with serious co-morbid conditions.

Patients with extremes in muscle mass or diet.

The data above are obtained from the National Kidney Disease Education Program (NKDEP) which additionally recommends that when the eGFR is used in patients with extremes of body mass index for purposes of drug dosing, the eGFR should be multiplied by the estimated BMI. [facility] CHEM PANEL Calcium Lvl 7.9 8.5 - 10.5 01/19/2017 [facility] CHEM PANEL Potassium Lvl 4.0 3.5 - 5.1 01/19/2017 [facility] CHEM PANEL Chloride Lvl 103 95 - 109 01/19/2017 [facility] CHEM PANEL CO2 30 24 - 32 01/19/2017 [facility] CHEM PANEL AGAP 11.0 10.0 - 20.0 01/19/2017 [facility] CHEM PANEL Glucose Lvl 136 70 - 99 01/19/2017 [facility] CHEM PANEL Sodium Lvl 140 135 - 145 01/19/2017 [facility] CHEM PANEL BUN 22 7 - 22 01/19/2017 [facility] CHEM PANEL Creatinine Lvl 0.90 0.50 - 1.40 01/19/2017 [facility] HEMATOLOGY MPV 6.7 7.4 - 10.4 01/19/2017 [facility] HEMATOLOGY RDW 16.3 11.5 - 14.5 01/19/2017 [facility] HEMATOLOGY MCH 26.8 27.0 - 31.0 01/19/2017 [facility] HEMATOLOGY MCHC 33.2 32.0 - 36.0 01/19/2017 [facility] HEMATOLOGY MCV 80.8 80.0 - 98.0 01/19/2017 [facility] HEMATOLOGY Platelet 309 133 - 450 01/19/2017 [facility] HEMATOLOGY WBC 8.2 3.7 - 10.4 01/19/2017 [facility] HEMATOLOGY Hgb 9.2 12.0 - 16.0 01/19/2017 [facility] HEMATOLOGY RBC 3.43 4.20 - 5.40 01/19/2017 [facility] HEMATOLOGY Hct 27.7 36.0 - 48.0 01/19/2017 [facility] CHEM PANEL eGFR 95 01/18/2017 Result Comment: The eGFR is calculated using the CKD-EPI formula. In most young, healthy individuals the eGFR will be >90 mL/min/1.73m2. The eGFR declines with age. An eGFR of 60-89 may be normal in some populations, particularly the elderly, for whom the CKD-EPI formula has not been extensively validated. Use of the eGFR is not recommended in the following populations:

Individuals with unstable creatinine concentrations, including patients and those with serious co-morbid conditions.

Patients with extremes in muscle mass or diet.

The data above are obtained from the National Kidney Disease Education Program (NKDEP) which additionally recommends that when the eGFR is used in patients with extremes of body mass index for purposes of drug dosing, the eGFR should be multiplied by the estimated BMI. [facility] CHEM PANEL Creatinine Lvl 0.74 0.50 - 1.40 01/18/2017 [facility] CHEM PANEL Potassium Lvl 4.1 3.5 - 5.1 01/18/2017 [facility] CHEM PANEL Sodium Lvl 139 135 - 145 01/18/2017 [facility] CHEM PANEL Chloride Lvl 103 95 - 109 01/18/2017 [facility] CHEM PANEL AGAP 9.1 10.0 - 20.0 01/18/2017 [facility] CHEM PANEL Calcium Lvl 7.9 8.5 - 10.5 01/18/2017 [facility] CHEM PANEL CO2 31 24 - 32 01/18/2017 [facility] CHEM PANEL BUN 20 7 - 22 01/18/2017 [facility] CHEM PANEL Glucose Lvl 165 70 - 99 01/18/2017 [facility] CHEM PANEL eGFR 95 01/17/2017 Result Comment: The eGFR is calculated using the CKD-EPI formula. In most young, healthy individuals the eGFR will be >90 mL/min/1.73m2. The eGFR declines with age. An eGFR of 60-89 may be normal in some populations, particularly the elderly, for whom the CKD-EPI formula has not been extensively validated. Use of the eGFR is not recommended in the following populations:

Individuals with unstable creatinine concentrations, including patients and those with serious co-morbid conditions.

Patients with extremes in muscle mass or diet.

The data above are obtained from the National Kidney Disease Education Program (NKDEP) which additionally recommends that when the eGFR is used in patients with extremes of body mass index for purposes of drug dosing, the eGFR should be multiplied by the estimated BMI. [facility] CHEM PANEL Calcium Lvl 7.7 8.5 - 10.5 01/17/2017 [facility] CHEM PANEL AGAP 11.2 10.0 - 20.0 01/17/2017 [facility] CHEM PANEL Sodium Lvl 141 135 - 145 01/17/2017 [facility] CHEM PANEL Potassium Lvl 4.2 3.5 - 5.1 01/17/2017 [facility] CHEM PANEL BUN 20 7 - 22 01/17/2017 [facility] CHEM PANEL CO2 29 24 - 32 01/17/2017 [facility] CHEM PANEL Creatinine Lvl 0.75 0.50 - 1.40 01/17/2017 [facility] CHEM PANEL Chloride Lvl 105 95 - 109 01/17/2017 [facility] CHEM PANEL Glucose Lvl 200 70 - 99 01/17/2017 [facility] CARDIAC ENZYMES BNP 596 <=100 pg/mL 01/17/2017 [facility] HEMATOLOGY Monocytes 3.7 2.0 - 12.0 01/16/2017 [facility] HEMATOLOGY Lymphocytes 23.2 20.0 - 40.0 01/16/2017 [facility] HEMATOLOGY Segs 72.0 45.0 - 75.0 01/16/2017 [facility] HEMATOLOGY Basophils 0.3 0.0 - 1.0 01/16/2017 [facility] HEMATOLOGY Eosinophils 0.8 0.0 - 4.0 01/16/2017 [facility] HEMATOLOGY Lymphocytes # 3.0 1.0 - 5.5 01/16/2017 [facility] HEMATOLOGY Segs-Bands # 9.3 1.5 - 8.1 01/16/2017 [facility] HEMATOLOGY Monocytes # 0.5 0.0 - 0.8 01/16/2017 [facility] HEMATOLOGY Eosinophils # 0.1 0.0 - 0.5 01/16/2017 [facility] HEMATOLOGY Hct 30.3 36.0 - 48.0 01/16/2017 [facility] HEMATOLOGY MCV 82.5 80.0 - 98.0 01/16/2017 [facility] HEMATOLOGY Hgb 9.8 12.0 - 16.0 01/16/2017 [facility] HEMATOLOGY WBC 12.9 3.7 - 10.4 01/16/2017 [facility] HEMATOLOGY RBC 3.67 4.20 - 5.40 01/16/2017 [facility] HEMATOLOGY Platelet 326 133 - 450 01/16/2017 [facility] HEMATOLOGY MPV 6.9 7.4 - 10.4 01/16/2017 [facility] HEMATOLOGY MCH 26.7 27.0 - 31.0 01/16/2017 [facility] HEMATOLOGY MCHC 32.4 32.0 - 36.0 01/16/2017 [facility] HEMATOLOGY RDW 15.9 11.5 - 14.5 01/16/2017 [facility] TOXICOLOGY Vanco Tr 41.8 01/16/2017 [facility] TOXICOLOGY Vanco Tr TND 1330 01/16/2017 [facility] HEMATOLOGY Hgb 9.2 12.0 - 16.0 01/15/2017 [facility] HEMATOLOGY RBC 3.46 4.20 - 5.40 01/15/2017 [facility] HEMATOLOGY MPV 6.7 7.4 - 10.4 01/15/2017 [facility] HEMATOLOGY Hct 28.3 36.0 - 48.0 01/15/2017 [facility] HEMATOLOGY MCV 81.8 80.0 - 98.0 01/15/2017 [facility] HEMATOLOGY MCH 26.6 27.0 - 31.0 01/15/2017 [facility] HEMATOLOGY MCHC 32.5 32.0 - 36.0 01/15/2017 [facility] HEMATOLOGY RDW 15.9 11.5 - 14.5 01/15/2017 [facility] HEMATOLOGY Platelet 271 133 - 450 01/15/2017 [facility] HEMATOLOGY WBC 13.5 3.7 - 10.4 01/15/2017 [facility] HEMATOLOGY Segs 80.7 45.0 - 75.0 01/15/2017 [facility] HEMATOLOGY Lymphocytes 14.0 20.0 - 40.0 01/15/2017 [facility] HEMATOLOGY Monocytes 4.3 2.0 - 12.0 01/15/2017 [facility] HEMATOLOGY Eosinophils 0.9 0.0 - 4.0 01/15/2017 [facility] HEMATOLOGY Basophils 0.1 0.0 - 1.0 01/15/2017 [facility] HEMATOLOGY Eosinophils # 0.1 0.0 - 0.5 01/15/2017 [facility] HEMATOLOGY Segs-Bands # 10.9 1.5 - 8.1 01/15/2017 [facility] HEMATOLOGY Lymphocytes # 1.9 1.0 - 5.5 01/15/2017 [facility] HEMATOLOGY Monocytes # 0.6 0.0 - 0.8 01/15/2017 [facility] HEMATOLOGY Hgb 9.2 12.0 - 16.0 01/15/2017 [facility] HEMATOLOGY RBC 3.46 4.20 - 5.40 01/15/2017 [facility] HEMATOLOGY WBC 13.5 3.7 - 10.4 01/15/2017 [facility] HEMATOLOGY MCV 81.8 80.0 - 98.0 01/15/2017 [facility] HEMATOLOGY Hct 28.3 36.0 - 48.0 01/15/2017 [facility] HEMATOLOGY MCH 26.6 27.0 - 31.0 01/15/2017 [facility] HEMATOLOGY RDW 15.9 11.5 - 14.5 01/15/2017 [facility] HEMATOLOGY MPV 6.7 7.4 - 10.4 01/15/2017 [facility] HEMATOLOGY MCHC 32.5 32.0 - 36.0 01/15/2017 [facility] HEMATOLOGY Platelet 271 133 - 450 01/15/2017 [facility] LIPIDS VLDL 14 01/15/2017 [facility] LIPIDS LDL (Calculated) 41 <=99 mg/dL 01/15/2017 [facility] LIPIDS Chol 74 <=199 mg/dL 01/15/2017 [facility] LIPIDS Trig 71 <=149 mg/dL 01/15/2017 [facility] LIPIDS CHD Risk 3.89 3.90 - 5.80 01/15/2017 [facility] LIPIDS HDL 19 >=61 mg/dL 01/15/2017 [facility] SPECIAL CHEMISTRY Hgb A1C 9.3 <=5.6 % 01/15/2017 [facility] TOXICOLOGY Vanco Lvl 7.1 01/15/2017 [facility] BLOOD BANK RESULTS Antibody Scrn Negative (01/14/17 3:46 AM) 01/14/2017 [facility] BLOOD BANK RESULTS ABO/Rh O POS 01/14/2017 [facility] HEMATOLOGY Lymphocytes 20.2 20.0 - 40.0 01/14/2017 [facility] HEMATOLOGY Eosinophils 1.5 0.0 - 4.0 01/14/2017 [facility] HEMATOLOGY Segs-Bands # 9.5 1.5 - 8.1 01/14/2017 [facility] HEMATOLOGY Basophils 0.2 0.0 - 1.0 01/14/2017 [facility] HEMATOLOGY Segs 72.4 45.0 - 75.0 01/14/2017 [facility] HEMATOLOGY Monocytes # 0.7 0.0 - 0.8 01/14/2017 [facility] HEMATOLOGY Lymphocytes # 2.6 1.0 - 5.5 01/14/2017 [facility] HEMATOLOGY Monocytes 5.7 2.0 - 12.0 01/14/2017 [facility] HEMATOLOGY Eosinophils # 0.2 0.0 - 0.5 01/14/2017 [facility] HEMATOLOGY INR 1.18 0.85 - 1.17 01/14/2017 [facility] HEMATOLOGY PT 15.2 12.0 - 14.7 01/14/2017 [facility] HEMATOLOGY PTT 32.3 22.9 - 35.8 01/14/2017 [facility] TOXICOLOGY Vanco Tr TND 0930 01/14/2017 [facility] TOXICOLOGY Vanco Tr 20.9 01/14/2017 [facility] HEMATOLOGY Monocytes 4.5 2.0 - 12.0 01/12/2017 [facility] HEMATOLOGY Lymphocytes 6.7 20.0 - 40.0 01/12/2017 [facility] HEMATOLOGY Eosinophils 0.8 0.0 - 4.0 01/12/2017 [facility] HEMATOLOGY Segs-Bands # 21.2 1.5 - 8.1 01/12/2017 [facility] HEMATOLOGY Basophils 0.2 0.0 - 1.0 01/12/2017 [facility] HEMATOLOGY Lymphocytes # 1.6 1.0 - 5.5 01/12/2017 [facility] HEMATOLOGY Segs 87.8 45.0 - 75.0 01/12/2017 [facility] HEMATOLOGY Monocytes # 1.1 0.0 - 0.8 01/12/2017 [facility] HEMATOLOGY Eosinophils # 0.2 0.0 - 0.5 01/12/2017 [facility] HEMATOLOGY MCHC 33.6 32.0 - 36.0 01/12/2017 [facility] HEMATOLOGY MCV 80.4 80.0 - 98.0 01/12/2017 [facility] HEMATOLOGY MCH 27.0 27.0 - 31.0 01/12/2017 [facility] HEMATOLOGY RDW 15.9 11.5 - 14.5 01/12/2017 [facility] HEMATOLOGY Platelet 331 133 - 450 01/12/2017 [facility] HEMATOLOGY WBC 24.1 3.7 - 10.4 01/12/2017 [facility] HEMATOLOGY Hgb 10.7 12.0 - 16.0 01/12/2017 [facility] HEMATOLOGY Hct 31.7 36.0 - 48.0 01/12/2017 [facility] HEMATOLOGY RBC 3.94 4.20 - 5.40 01/12/2017 [facility] HEMATOLOGY MPV 6.8 7.4 - 10.4 01/12/2017 [facility] HEMATOLOGY Sed Rate 7 0 - 20 01/12/2017 [facility] URINE AND STOOL UA WBC 4 0 - 5 01/12/2017 [facility] URINE AND STOOL UA RBC 4 0 - 2 01/12/2017 [facility] URINE AND STOOL UA Urobilinogen <=1.0 mg/dL 0.1 - 1.0 01/12/2017 [facility] URINE AND STOOL UA Leuk Est Negative (01/11/17 10:43 PM) Negative 01/12/2017 [facility] URINE AND STOOL UA Nitrite Negative (01/11/17 10:43 PM) Negative 01/12/2017 [facility] URINE AND STOOL UA pH 5.0 5.0 - 8.0 01/12/2017 [facility] URINE AND STOOL UA Protein Negative mg/dL Negative mg/dL 01/12/2017 [facility] URINE AND STOOL UA Spec Grav 1.012 <=1.030 01/12/2017 [facility] URINE AND STOOL UA Color Light Yellow *NA* (01/11/17 10:43 PM) Yellow 01/12/2017 [facility] URINE AND STOOL UA Turbidity Clear (01/11/17 10:43 PM) Clear 01/12/2017 [facility] URINE AND STOOL UA Bili Negative *NA* (01/11/17 10:43 PM) Negative 01/12/2017 [facility] URINE AND STOOL UA Blood Negative (01/11/17 10:43 PM) Negative 01/12/2017 [facility] URINE AND STOOL UA Sq Epi Few /LPF Few /LPF 01/12/2017 [facility] URINE AND STOOL UA Ketones Negative mg/dL Negative mg/dL 01/12/2017 [facility] URINE AND STOOL UA Glucose Negative mg/dL Negative mg/dL 01/12/2017 [facility] CARDIAC ENZYMES Troponin-I <0.02 0.00 - 0.40 01/12/2017 [facility] CARDIAC ENZYMES Total CK 40 12 - 191 01/12/2017 [facility] CHEM PANEL Lipase Lvl 52 73 - 393 01/12/2017 [facility] CHEM PANEL Lactic Acid Lvl 1.3 0.5 - 2.2 01/12/2017 [facility] CHEM PANEL eGFR 99 01/12/2017 Result Comment: The eGFR is calculated using the CKD-EPI formula. In most young, healthy individuals the eGFR will be >90 mL/min/1.73m2. The eGFR declines with age. An eGFR of 60-89 may be normal in some populations, particularly the elderly, for whom the CKD-EPI formula has not been extensively validated. Use of the eGFR is not recommended in the following populations:

Individuals with unstable creatinine concentrations, including patients and those with serious co-morbid conditions.

Patients with extremes in muscle mass or diet.

The data above are obtained from the National Kidney Disease Education Program (NKDEP) which additionally recommends that when the eGFR is used in patients with extremes of body mass index for purposes of drug dosing, the eGFR should be multiplied by the estimated BMI. [facility] CHEM PANEL A/G Ratio 0.3 0.7 - 1.6 01/12/2017 [facility] CHEM PANEL AST 23 0 - 37 01/12/2017 [facility] CHEM PANEL ALT 21 0 - 65 01/12/2017 [facility] CHEM PANEL Sodium Lvl 136 135 - 145 01/12/2017 [facility] CHEM PANEL Calcium Lvl 7.2 8.5 - 10.5 01/12/2017 [facility] CHEM PANEL CO2 23 24 - 32 01/12/2017 [facility] CHEM PANEL Chloride Lvl 105 95 - 109 01/12/2017 [facility] CHEM PANEL Potassium Lvl 4.6 3.5 - 5.1 01/12/2017 [facility] CHEM PANEL Albumin Lvl 1.4 3.5 - 5.0 01/12/2017 [facility] CHEM PANEL Total Protein 5.6 6.4 - 8.4 01/12/2017 [facility] CHEM PANEL B/C Ratio 40 6 - 25 01/12/2017 [facility] CHEM PANEL Globulin 4.2 2.7 - 4.2 01/12/2017 [facility] CHEM PANEL Alk Phos 299 39 - 136 01/12/2017 [facility] CHEM PANEL Bili Total 0.5 0.2 - 1.3 01/12/2017 [facility] CHEM PANEL AGAP 12.6 10.0 - 20.0 01/12/2017 [facility] CHEM PANEL BUN 29 7 - 22 01/12/2017 [facility] CHEM PANEL Creatinine Lvl 0.72 0.50 - 1.40 01/12/2017 [facility] CHEM PANEL Glucose Lvl 170 70 - 99 01/12/2017 [facility] ENDOCRINOLOGY S Preg Negative *NA* (01/11/17 9:48 PM) Negative 01/12/2017 [facility] HEMATOLOGY INR 1.23 0.85 - 1.17 01/12/2017 [facility] HEMATOLOGY PT 15.8 12.0 - 14.7 01/12/2017 [facility] IMMUNOLOGY C-REACTIVE PROTEIN 174.0 <=2.9 mg/L 01/12/2017 [facility] Pathology Reports No Data Provided for This Section Diagnostic Reports Report Value Date Source Brain w/wo contrast CT EXAM: CT BRAIN WITHOUT AND WITH CONTRAST DATE: 02/25/2019 21:37 CDT INDICATION: Drowsiness - Change in mental status. ADDITIONAL INFORMATION: . COMPARISON: CT head of 02/06/2017. TECHNIQUE: Routine axial CT images of the brain were obtained before and after the administration of IV contrast. IV contrast: [address] imaging performed at this location utilizes radiation dose optimization techniques which include one or more of the following: -Automated exposure control -Adjustment of the mA and/or kV according to patient size -Use of iterative reconstruction technique CT Radiation Dose DLP 1962.50 mGy-cm FINDINGS: Non-contrast images of the head demonstrate no edema, hemorrhage, mass lesion or other acute intracranial abnormality. Ordonez-white matter distinction is preserved. The ventricles are normal. The basal cisterns and sulci are normal in size. Marked atherosclerotic calcification of the distal internal carotid arteries. Postcontrast sequences demonstrate no definite abnormal intracranial enhancement. No definite enhancing parenchymal lesion detected. The paranasal sinuses, orbits and mastoids are unremarkable. IMPRESSION: 1. No definite acute infarct or intracranial hemorrhage detected. No definite abnormal intracranial enhancement detected. 2. Mild diffuse cerebral atrophy and mild chronic small vessel ischemic change. If there is further concern for intracranial pathology or acute stroke, MRI of the brain may be performed for complete assessment. SL: [id number] 02/25/2019 [facility] Cardiac SPECT multi studies NM EXAM: Cardiac SPECT multi studies NM INDICATION: REPORT: Pharmacologic stress testing was performed with 0.4 mg/5 mL of intravenous regadenoson per protocol. The heart rate tamiko from 77 beats per minute to 100 per minute at peak stress which is 59 of the maximum predicted heart rate. The blood pressure 110/70 from 100/70 mmHg at rest to mmHg during stress, which is a response. The patient developed no significant symptoms. The resting ECG showed sinu and did not show any ST-segment changes consistent with myocardial ischemia. MYOCARDIAL PERFUSION IMAGING: Myocardial perfusion SPECT imaging was performed at rest following the injection of 30 mCi of intravenous Tc-99m sestamibi. At peak pharmacologic effect, the patient was injected with 11.5 mCi of intravenous Tc-99m sestamibi. Gated post- stress tomographic imaging was performed. The overall quality of the study is fair. Attenuation artifact was minimal. Left ventricular cavity was noted to be normal on the rest and stress studies. SPECT images demonstrate homogeneous tracer distribution throughout the myocardium. Gated SPECT imaging reveals normal myocardial thickening and wall motion. The left ventricular ejection fraction was calculated to be 52%. IMPRESSION: 1. Myocardial perfusion imaging is abnormal. 2. There is a large area of ischemia in the inferior wall. 3. Overall left ventricular systolic function was normal with out regional wall motion abnormalities. [id number] 02/24/2019 [facility] Liver w Liver vessels Doppler US ULTRASOUND OF THE LIVER WITH DOPPLER: HISTORY: Cirrhosis, evaluate for portal hypertension. FINDINGS: The liver is normal in size with a right lobe sagittal span of approximately 14 cm. There is slightly heterogeneous echogenicity of the liver parenchyma without focal abnormalities or visible mass. There is no discrete surface nodularity. The gallbladder is not visualized consistent with the history of cholecystectomy. There is no evidence of biliary dilatation. The common duct measures 5 mm in diameter. There has been resolution of mild ascites compared to the previous liver ultrasound on 01/17/2017. There is no other significant change. The main portal vein measures 9 mm in diameter without evidence of thrombosis. Hepatopedal flow in the main portal vein, right and left portal veins, and splenic vein is demonstrated. Continuous nonphasic flow in the portal veins and splenic vein is demonstrated, with a velocity of 15 cm/s in the main portal vein. There is multiphasic predominantly antegrade flow in the hepatic veins and IVC. Hepatic arterial waveforms in the jennifer hepatis are demonstrated. No definite varices are seen on the recent abdominal CT of 02/23/2019. IMPRESSION: 1. Findings consistent with hepatocellular disease. There is no focal liver abnormality. 2. No significant Doppler abnormalities of the liver vasculature. SL [id number] 02/24/2019 [facility] Chest Pulmonary Embolism CTA Patient Name: VERONICA JEFFERSON : 1965; Age: 53 years y/o Female MR: [id number] * COMPUTED TOMOGRAPHY SCAN OF THE CHEST -- CT PULMONARY ANGIOGRAPHY (pulmonary embolism protocol). History: Chest pain and dyspnea. Dizziness. Imaging studies reviewed: Chest radiograph from today. TECHNIQUE: Initially, high-resolution (2 mm) helical CT images were obtained through the chest from the just above the thoracic inlet to the upper abdomen during the dynamic intravenous administration of nonionic iodinated contrast timed for maximal pulmonary arterial opacification (CT pulmonary angiogram -- pulmonary embolism protocol technique). Sagittal 2-D reconstructions and coronal MIP and 3-D rotational reconstructions (obtained by postprocessing on an independent workstation) were also provided. CT imaging performed at this location utilizes radiation dose optimization techniques which include one or more of the following: -Automated exposure control. -Adjustment of the mA and/or kV according to patient size. -Use of iterative reconstruction technique. CT radiation dose DLP: 690.33 mGy-cm IMPRESSION: 1. No evidence of pulmonary embolism. 2. No active or acute process within the chest. The lungs are clear. There are no pleural effusions. 3. Mild cardiomegaly. There is no pericardial effusion. 4. Mild coronary artery calcifications. 5. Minimal atherosclerotic change involving the thoracic aorta. There is no thoracic aortic aneurysm or dissection. 6. No suspicious pulmonary nodule or mass or hilar/mediastinal adenopathy. 7. Status post left mastectomy. 8. Mild degenerative change involving the thoracic spine. The regional skeleton is otherwise unremarkable. 9. Please refer to the CT scan of the abdomen and pelvis report regarding the findings within the abdomen. SL: ADALGISA 02/23/2019 [facility] ED Abdomen/Pelvis IV contrast only CT Patient Name: VERONICA JEFFERSON : 1965; Age: 53 years y/o Female MR: [id number] * I. COMPUTED TOMOGRAPHY SCAN OF THE ABDOMEN with contrast. * II. COMPUTED TOMOGRAPHY SCAN OF THE PELVIS with contrast HISTORY: Generalized nonspecific abdominal pain. COMPARISON: None TECHNIQUE: I. COMPUTED TOMOGRAPHY SCAN OF THE ABDOMEN with contrast: Helical CT images were obtained on a multidetector computed tomography scanner from the domes the diaphragms to the iliac crests following the intravenous administration of nonionic iodinated contrast. Oral contrast was not provided. II. COMPUTED TOMOGRAPHY SCAN OF THE PELVIS with contrast: Helical CT images were obtained on a multidetector computed tomography scanner from the iliac crests to the pubic symphysis following the intravenous administration of nonionic iodinated contrast. Oral contrast was not provided. Coronal and sagittal reconstructions were obtained. CT imaging performed at this location utilizes radiation dose optimization techniques which include one or more of the following: -Automated exposure control. -Adjustment of the mA and/or kV according to patient size. -Use of iterative reconstruction technique. CT radiation dose DLP: 1234.86 mGy-cm FINDINGS: There is no evidence of an acute intra-abdominal process. There is no free intraperitoneal gas, significant intra-abdominal fluid, or hemorrhage. The liver, spleen, pancreas, and adrenal glands are normal in appearance. There is a small accessory spleen. The kidneys are normal in size and show good, symmetrical enhancement without hydronephrosis. There is mild renal cortical thinning and scarring. There is a 1.7 a 1.5 cm left lower pole renal cyst. No calculi or other focal renal lesions are visualized. The gastrointestinal structures are unremarkable. There is no evidence of obstruction or ileus. A normal appendix is visualized. There is no evidence of appendicitis. Evaluation of the gastrointestinal structures is limited due to lack of oral contrast. Status post cholecystectomy. There is no evidence of significant biliary ductal dilatation. No mass or adenopathy is seen within the abdomen or pelvis. The abdominal aorta is normal in caliber. There are moderate atherosclerotic calcifications. The uterus is not visualized. Presumably, the patient has had a prior hysterectomy. The visualized lung bases are clear. There are no pleural effusions. Severe old compression deformity at L2. Moderate old compression deformity at L3. Mild prolapse of the disc space and superior endplate of L4. Degenerative disc disease at L5-S1. Please refer to the CT scan of the chest regarding the findings within the chest. IMPRESSION: 1. No evidence of an acute process within the abdomen or pelvis. 2. Status post cholecystectomy. 3. The kidneys are normal in size. Is mild cortical thinning and scarring. There is a small left lower pole renal cyst. 4. Atherosclerosis. 5. Status post hysterectomy. 6. Old vertebral body compression deformities at L2, L3, and L4 as described above. There is also degenerative disc disease at L5-S1. SL: MERLE 02/23/2019 [facility] Chest 1view DX Clinical Indication: - waeak. Comparison: August 10, 2018 FINDINGS: Frontal chest radiograph was obtained. The lungs are adequately inflated and clear. There is no focal airspace consolidation, pleural effusion or pneumothorax. The trachea is midline and patent. Pulmonary vasculature is symmetric. Cardiac silhouette is within normal limits. The bony structures are unremarkable. IMPRESSION: No acute radiographic abnormality of the thorax. SL: [id number] 02/23/2019 [facility] Foot series DX EXAM: AP, lateral, and oblique radiographs of the left foot, 3 images obtained INDICATION: Cellulitis, rule out osteomyelitis COMPARISON: 03/19/2018 left foot radiographs FINDINGS: No fracture or subluxation identified. Joint spaces are preserved. No soft tissue gas or unexpected radiopaque foreign body identified. Bones are demineralized. No periostitis or osseous distraction identified to suggest the presence of osteomyelitis IMPRESSION: No acute osseous findings. MRI with IV contrast is more sensitive for detecting osteomyelitis SL: [id number] 09/08/2018 [facility] Chest 1view DX Clinical Indication: - girish. Weakness and fatigue began today Comparison: Chest radiograph 04/08/2018 Findings: Frontal view of the chest was obtained. Leads overlie the chest. The cardiac silhouette is normal. There is no lobar consolidation, effusion or edema. No pneumothorax. There is chronic elevation the right hemidiaphragm. No acute osseous abnormality. IMPRESSION: No acute cardiopulmonary abnormality. SL: [id number] 08/10/2018 [facility] ED Abdomen/Pelvis IV contrast only CT Clinical Indication: - ACUTE ABD PAIN, VOMITING; Pt reports n/v onset yesterday, c/o sob and states she had blood in her stool this am. Comparison: 05/03/2017 Technique: Multi-detector CT imaging of the abdomen and pelvis is performed with contrast. Coronal and sagittal reconstructions were obtained. IV CONTRAST: 100 mL of Omnipaque GI CONTRAST: No oral contrast was administered which can limit assessment. CT imaging performed at this location utilizes radiation dose optimization techniques which include one or more of the following: -Automated exposure control -Adjustment of the mA and/or kV according to patient size -Use of iterative reconstruction technique CT Radiation Dose DLP 931 mGy-cm FINDINGS: CT ABDOMEN WITH CONTRAST: LUNG BASES: Unremarkable. ABDOMINAL SOLID ORGANS: The contrast enhanced images of the liver, spleen, pancreas, adrenals and kidneys are normal. Incidental splenule noted. Postcholecystectomy STOMACH AND BOWEL: Lack of oral contrast limits assessment. Stomach is decompressed. Nonopacified small bowel loops are unremarkable. The appendix is normal. Some endoluminal fluid throughout portions of the colon noted. There is subtle mild colonic wall thickening subtle enhancement of portions of the colon particularly the distal transverse colon and descending impression the sigmoid colon. Mild pericolonic fat stranding present throughout. PERITONEUM AND RETROPERITONEUM: There is no abdominal lymphadenopathy. There is no pneumoperitoneum or abdominal ascites. There are no retroperitoneal abnormalities. VASCULAR STRUCTURES: The abdominal aorta is unremarkable without aneurysm. Takeoffs of the mesenteric arteries and renal arteries are patent. The inferior vena cava is unremarkable. Portal veinous structures are grossly patent. OSSEOUS STRUCTURES: Degenerative changes noted. Some further loss of vertebral body height of L2 with again notation of superior endplate possibly more chronic fractures. Some mild canal stenosis is present ------- CT PELVIS WITH CONTRAST: BOWEL: Rectosigmoid colon partially decompressed with some endoluminal fluid noted. PERITONEAL AND EXTRAPERITONEAL REGIONS: There is no pelvic free fluid or lymphadenopathy. The inguinal regions are unremarkable. BLADDER / : The bladder is unremarkable. Uterus absent OSSEOUS STRUCTURES: There are no significant osseous abnormalities seen. ----- IMPRESSION: 1. Nonspecific inflammatory changes involving the colon with some wall enhancement endoluminal fluid and subtle colonic wall thickening and some pericolonic fat stranding, correlate for infectious or inflammatory colitis sequela 07/30/2018 [facility] Chest 1view DX Clinical Indication: - tremors Comparison: 03/27/2018 FINDINGS: Single AP view of the chest is submitted for interpretation. Right-sided PICC line tip overlies the mid SVC. The lungs are clear and there are no effusions. There is no visible pneumothorax. Cardiomediastinal contours are within normal limits. No gross bony normalities are identified. IMPRESSION: 1. No radiographic evidence of acute cardiopulmonary process. SL: [id number] 04/08/2018 [facility] Cardiac SPECT multi studies NM LOCATION: [facility] NO EKG changes of ischemia during or after lexiscan injection This is an Lexiscan myocardial perfusion study. Lexiscan was injected per protocol. Cardiolite was injected during peak stress as well as during rest. The myocardial perfusion was obtained using standard procedure. The myocardial perfusion was normal during both phases. No evidence of ischemia. Ejection fraction was 56% with normal wall motion. TID 0.97 Conclusion: Normal myocardial perfusion study. Reading location: [facility] [place] 03/29/2018 [facility] 1view DX Patient Name: VERONICA JEFFERSON : 1965; Age: 52 years y/o Female MR: [id number] * CHEST, portable, 1 view HISTORY: Chest pain. COMPARISON: 03/23/2018. A study of 02/05/2017 was also reviewed. TECHNIQUE: A portable frontal radiograph of the chest was obtained. FINDINGS: There is mild chronic elevation the right hemidiaphragm. There is no evidence of an active or acute process within the chest. The lungs are clear. There are no pulmonary infiltrates or pleural effusions. The heart is normal in size. The regional skeleton is unremarkable. The tip of the right upper extremity PICC is in the mid superior vena cava. IMPRESSION: 1. No active disease. 2. The tip of the right upper extremity PICC is in the superior vena cava. SL: [id number] 03/27/2018 [facility] 1view DX Patient Name: VERONICA JEFFERSON : 1965; Age: 52 years Female MR: [id number] Study: Chest 1view DX Order Time: 03/23/2018 10:26 AM CDT CLINICAL INDICATION: - STAT portable Chest X-ray post successful insertion. Indication: Correct Line Placement. COMPARISON: Chest radiograph on 02/05/2017 FINDINGS: Lines: Right PICC line tip projects over the SVC. Lungs: The lungs are grossly clear. Mediastinum: The cardiac silhouette is within normal limits of size. Midline trachea. Bones and soft tissues: No acute abnormalities. IMPRESSION: Satisfactory position of the right PICC line. SL: [id number] 03/23/2018 [facility] Ext Lower Venous Doppler Bilat US Ext Lower Venous Doppler Bilat US CLINICAL HX: - pain legs; bilateral leg pain COMPARISON: none TECHNIQUE: Nguyen scale imaging, compression techniques and spectral analysis were utilized to evaluate the deep venous system of both lower extremities from the inguinal ligament to the popliteal fossa. FINDINGS: There is adequate compression, respiratory variability, and appropriate response to augmentation in the CFV, FV and popliteal veins in both thighs. The junction of the profunda vein to the SFV is patent bilaterally. Posterior tibial vein/trunk and the saphenous vein demonstrate normal compressibility. IMPRESSION: No evidence for deep vein thrombosis in the examined veins of both lower extremities. SL: [id number] 03/20/2018 [facility] Foot wo contrast MRI MRI of the RIGHT foot INDICATION: - OM right fifth toe/metatars COMPARISON: 03/19/2018 radiographs TECHNIQUE: Multiplanar multisequence noncontrast magnetic resonance imaging right foot. FINDINGS: Bones: There is very slight T1 signal loss along the distal aspects of the distal phalanx of the 5th toe. There is also associated marrow edema. These findings are compatible with early osteomyelitis. The middle and distal phalanges are fused. No other definitive regions of osteomyelitis are identified. No acute fracture. Mild degenerative changes of TMT joints. Soft tissues: There is a soft tissue wound along the 5th toe, with associated soft tissue edema. No well-defined drainable collection to suggest abscess. There is a small 1st MTP joint effusion. Muscles: Mild diffuse muscle edema and atrophy. This is most compatible with diabetic/denervation myopathy. Tendons: No focal tendon signal abnormality, or evidence for tenosynovitis. IMPRESSION: Findings compatible with early osteomyelitis of the distal phalanx of the right 5th toe. SL: [id number] 03/19/2018 [facility] Foot 3 views bilateral DX Bilateral feet 3 views each: There is no fracture or osteomyelitis. There are no other significant osseous, articular or soft tissue abnormalities. IMPRESSION: No acute radiographic abnormalities of the feet. [id number] 03/19/2018 [facility] ED Abdomen/Pelvis IV contrast only CT CT ABDOMEN AND PELVIS WITH CONTRAST DATED 05/03/2017. CLINICAL INDICATION: Acute right flank pain. COMPARISON: CT abdomen dated 02/05/2017 TECHNIQUE: A CT of the abdomen and pelvis was performed using helical images from the thoracic outlet through the pubic symphysis after the intravenous administration of 75 mL Visipaque 320. The study was ordered without bowel contrast. Sagittal and coronal reconstructions were performed. Delayed postcontrast images were obtained. CT Radiation Dose: LCJ=1407 mGy-cm FINDINGS: SOLID ORGANS: The liver demonstrates heterogeneous decreased parenchymal density and surface lobularity, suspicious for underlying cirrhosis. No hepatic masses are identified. No acute CT abnormalities of the spleen, pancreas, left adrenal gland or kidneys are identified. There is no CT evidence of acute renal collecting system obstruction or calcified renal collecting system stone. Bilateral renal cortical cysts are noted. A 18 mm right adrenal gland nodule is identified and previously demonstrated internal attenuation values compatible with adenoma on the noncontrast exam of 02/05/2017. BILIARY: The patient is status post cholecystectomy. No significant biliary ductal dilatation is identified. BOWEL: Bowel assessment is limited by the absence of bowel contrast. No intestinal dilatation is identified to suggest acute obstruction. The appendix is well-visualized and is not acutely inflamed. No diverticular disease is identified. Fluid is noted in the rectosigmoid colon. This finding may be related to recent enema as opposed to an acute diarrheal illness as solid stool is present in the remainder of the colon. PERITONEUM: No free intraperitoneal air or significant free intraperitoneal fluid. RETROPERITONEUM: The abdominal aorta is normal in caliber. No retroperitoneal mass or adenopathy. PELVIS: The urinary bladder is unremarkable. LOWER CHEST: The lung bases appear clear of acute disease. ADDITIONAL COMMENTS: A mild superior endplate compression deformity is identified at L2 that is new when compared to the preceding CT mild bone fragment retropulsion is identified at the level of the superior endplate without associated canal stenosis. The superior endplate compression deformity of L3 in the large Schmorl's node in the superior endplate of L4 appears stable. IMPRESSION: 1. No acute CT abnormalities of the abdomen or pelvis are detected. 2. CT findings suggesting cirrhosis of the liver. 3. A mild superior endplate compression deformity is identified at L2 that is new since 02/05/2017 however, due to associated vertebral sclerosis, is unlikely to be acute. Mild bone fragment retropulsion is identified at the level the superior endplate without associated canal stenosis. SL:131 05/03/2017 [facility] wo contrast CT EXAM: CT BRAIN DATE: 02/06/2017 at 18:33 CLINICAL INFORMATION: - history multiple falls, last 3 days COMPARISON: None TECHNIQUE: Axial images of the brain were obtained from the skull base through the vertex without contrast material administration. DLP: 845 mGycm DISCUSSION: The density of the brain parenchyma is unremarkable. Prominence of the cerebral sulci due to volume loss. No hydrocephalus, midline shift or mass effect. No acute hemorrhage. No bony lesions. Paranasal sinuses and mastoid air cells are clear. IMPRESSION: No intracranial abnormality. 02/06/2017 [facility] Abdomen/Pelvis wo IV contrast CT EXAM: CT ABDOMEN AND PELVIS WITHOUT CONTRAST DATE: 02/05/2017 INDICATION: Abdominal pain and diarrhea ADDITIONAL INFORMATION: None. COMPARISON: None. TECHNIQUE: Volumetric CT acquisition of the abdomen and pelvis without the intravenous administration contrast. Axial, coronal and sagittal reconstructions. IV contrast: None. Oral contrast: None. DLP: 632 FINDINGS: Lines and tubes: None. Lower thorax: A groundglass pulmonary nodule is present in the left lung base measuring approximately 5 mm (2/8). The lung bases are otherwise clear. Liver: The liver has a mildly nodular contour compatible with cirrhosis. Biliary tree: No intra- or extrahepatic biliary ductal dilation. Gallbladder: Removed. Pancreas: Normal. Spleen: Normal. Adrenals: A 1.9 cm hypodense left adrenal nodule is present with Hounsfield units of -6 compatible with an adrenal adenoma. Kidneys and ureters: Symmetric without inflammatory changes. Hypodense lesion is present in the inferior pole, not better characterized without contrast.. Bladder: Decompressed by Dale catheter. Reproductive organs: The uterus is surgically absent. No adnexal masses. Gastrointestinal tract: Stomach is moderately distended and grossly unremarkable. Small bowel loops are normal in caliber throughout. A few scattered diverticula are seen in the colon without diverticulitis. No pericolonic inflammation is seen. Appendix: Normal. Peritoneum and retroperitoneum: No free fluid is seen in the abdomen or pelvis . No focal fluid collections are seen. No free intraperitoneal air. Lymph nodes: A few nonenlarged retroperitoneal and epigastric lymph nodes are seen without lymphadenopathy identified. Vasculature: Scattered atherosclerotic vascular calcifications involve the abdominal aorta and its branches. Bones: Scattered degenerative disc disease is present. There is endplate sclerosis with a large Schmorl's node and mild anterior wedging of L3 vertebral body which may be due to previous compression deformity. Soft tissues: Soft tissue nodularity is seen within the right flank soft tissues, of unknown etiology. IMPRESSION: 1. No acute abnormality identified. 2. Cirrhosis of the liver. 3. Soft tissue nodularity seen within the left subcutaneous flank. This is of unknown etiology. 4. Degenerative disc disease with anterior wedging of L3 with endplate sclerosis, likely chronic. RECOMMENDATIONS: None. 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 Now presenting with pain in the forearm. COMPARISON: Right hand and wrist 01/11/2017 TECHNIQUE: AP and lateral radiographs of the forearm FINDINGS: There has been after dictation of the right distal forearm. Surgical margins are very well-defined with no osteolysis. Soft tissues of the stump show very mild swelling distally. No soft tissue gas is noted. Intravenous catheter is seen in the antecubital fossa. IMPRESSION: Expected appearance following recent amputation at the distal right forearm. Mild soft tissue swelling is noted. 02/05/2017 [facility] Chest 1view DX EXAM: XR CHEST 1 VIEW DATE: 02/05/2017 12:47 PM CDT INDICATION: - fever COMPARISON: None TECHNIQUE: AP chest FINDINGS: Lines and tubes: Electrocardiogram leads and electrodes overlie portions of the chest. Lungs and pleura: No pulmonary or pleural based abnormality is identified. Heart and mediastinum: The heart size is normal for technique. The mediastinal contours are normal. Bones: No acute bony abnormality is identified. IMPRESSION: No acute cardiopulmonary abnormality. 02/05/2017 [facility] Liver US EXAM: US LIVER DATE: 01/17/2017 at 1501 hours. INDICATION: Evaluate for cirrhosis or ascites. ADDITIONAL INFORMATION: None. COMPARISON: None. TECHNIQUE: Multiplanar grayscale and color Doppler ultrasound of the liver. FINDINGS: Liver: Craniocaudal length: 14.4 cm. Echogenicity: Course. Surface: Nodular. Mass (size and location): None. Portal vein: Normal. Bile ducts: Common bile duct diameter: 0.6 cm. Intrahepatic ducts: Normal. Gallbladder: Not seen. Pancreas: Head and uncinate process: Normal. Body and tail: Not seen. Spleen: 14.1 x 4.4 x 4.6 cm, 148 mL in volume. No mass identified. Ascites: Small amount of perihepatic and perisplenic fluid is noted. Other: A small right pleural effusion is present. IMPRESSION: 1. Cirrhosis with mild splenomegaly and a small amount of perihepatic and perisplenic ascites. 2. Small right pleural effusion. 01/17/2017 [facility] CVC insert tunnel w/-w/o port/pump age 5+ yrs VR STUDY: VIR CV Catheter Placement Tunneled DATE: 01/13/2017 5:35 PM CDT INDICATION(S): PROLINE. Patient requires long-term IV access for antibiotics PROCEDURE(S) PERFORMED: Ultrasound and fluoroscopy guided placement of a 6-Marshallese proline catheter into the right internal jugular vein. The line is ready for immediate use. STATE EPIDEMIOLOGIST: Dr. Yeager SPORTS LAWYER(S): Dr. Maldonado CONSENT: Written consent obtained after discussing the indications, procedure, potential benefits, alternatives and risks SEDATION/PAIN CONTROL: Moderate conscious sedation was administered by a dedicated nurse under my supervision. There was continuous monitoring of BP, pulse and oxygen saturation.. Sedation time 30 minutes. PROCEDURE IN DETAIL: The patient was brought into the interventional suite and placed supine. Ultrasound of the right neck confirmed a patent right internal jugular vein. The right neck and right anterior chest was thoroughly prepared using the usual sterile technique. 1% lidocaine was used as local anesthetic. Using real-time ultrasound guidance, the right internal jugular vein was punctured using a micropuncture set. The system was upsized in the usual manner to except a 0.018 wire. Images of the needle in the vein were saved to PACS and in the patient's medical record. Attention was then brought to the right infraclavicular area. An appropriate entry point for the tunneling was selected, and lidocaine 1% was injected along the tract. The appropriate length catheter was tunneled through the chest wall to the venotomy access point. The venotomy site was serially dilated to accept a 7-Marshallese peel-away sheath. The Proline catheter was successfully fed over the peel-away sheath into the right internal jugular vein. The catheter tip lies within the right atrium. The catheter was tethered to the skin using 2-0 Prolene and the venotomy site was dressed with pressure dressing. A sterile antibiotic loaded dressing was applied to the chest wall tunnel entry area and the venotomy was dressed appropriately. Both ports flushed well and were locked with saline. The catheter is ready for immediate use. FINDINGS: Successful placement of a 21 cm, 6-Marshallese right internal jugular vein Proline catheter COMPLICATIONS: None ESTIMATED BLOOD LOSS: Minimal FLUOROSCOPIC TIME: 1.4 minutes RADIATION DOSE: 11.6 mGy CONTRAST VOLUME: 0 mL IMPRESSION: Successful ultrasound and fluoroscopic-guided placement of a right internal jugular vein 6-Marshallese tunneled Proline catheter. The line is ready for immediate use. PLAN/FOLLOW UP: No Interventional Radiology follow-up is required. Dr. Lucho Maldonado, IR Attending, was present for the procedure. 01/13/2017 [facility] Hand 3 views DX Exam: Right Hand 3 views DX Clinical Indication: edema, poss surgical infection - edema, poss surgical infection. Comparison: None. FINDINGS: The 3 views of the hand is limited, related to multiple overlying densities. There are no fractures or dislocations noted. There are no osseous erosive changes. Severe diffuse hand soft tissue swelling is seen, most prominent in the digit regions. 3 wick type surgical drains are seen in the region of the dorsal hand. Some soft tissue gas is seen in the region of the index finger and base of the middle finger. These findings are consistent with infection. Follow-up radiographs or 3 phase bone scan may be performed for complete assessment. IMPRESSION: 1. Diffuse hand soft tissue swelling, most prominent in the digits. Some soft tissue gas in the index finger and middle finger regions. These findings are consistent with hand infection. No osseous erosive changes. No fractures or dislocations. Surgical drains in place. SL: [id number] 01/11/2017 [facility] Consultation Notes No Data Provided for This Section Discharge Summaries No Data Provided for This Section History and Physicals No Data Provided for This Section Vital Signs Vital Sign Value Date Comments Source Systolic (mm Hg) 96 02/26/2019 [facility] Diastolic (mm Hg) 57 02/26/2019 [facility] Respitory Rate 18 02/26/2019 [facility] Heart Rate 77 02/26/2019 [facility] Temperature Oral (F) 98 F 02/26/2019 [facility] Respitory Rate 16 02/26/2019 [facility] Respitory Rate 16 02/26/2019 [facility] Heart Rate 71 02/26/2019 [facility] Systolic (mm Hg) 140 02/26/2019 [facility] Diastolic (mm Hg) 72 02/26/2019 [facility] Temperature Oral (F) 97.5 F 02/26/2019 [facility] Systolic (mm Hg) 105 02/26/2019 [facility] Diastolic (mm Hg) 71 02/26/2019 [facility] Heart Rate 61 02/26/2019 [facility] Temperature Oral (F) 98.5 F 02/25/2019 [facility] Weight 77.386 02/25/2019 [facility] BMI Calculated 29.24 02/24/2019 [facility] Weight 77.273 02/24/2019 [facility] Height 162.56 cm 02/24/2019 [facility] Height 162.56 cm 02/24/2019 [facility] BMI Calculated 29.24 02/24/2019 [facility] Weight 77.273 02/24/2019 [facility] BMI Calculated 29.24 02/23/2019 [facility] Height 162.56 cm 02/23/2019 [facility] Respitory Rate 18 09/09/2018 [facility] Systolic (mm Hg) 117 09/09/2018 [facility] Diastolic (mm Hg) 83 09/09/2018 [facility] Heart Rate 78 09/09/2018 [facility] Temperature Oral (F) 98.3 F 09/09/2018 [facility] Weight 77.273 09/08/2018 [facility] Temperature Oral (F) 98.5 F 09/08/2018 [facility] Height 162.56 cm 09/08/2018 [facility] Systolic (mm Hg) 135 09/08/2018 [facility] Diastolic (mm Hg) 70 09/08/2018 [facility] BMI Calculated 29.24 09/08/2018 [facility] Heart Rate 77 09/08/2018 [facility] Respitory Rate 17 09/08/2018 [facility] Systolic (mm Hg) 126 08/12/2018 [facility] Diastolic (mm Hg) 79 08/12/2018 [facility] Respitory Rate 18 08/12/2018 [facility] Temperature Oral (F) 97.9 F 08/12/2018 [facility] Heart Rate 83 08/12/2018 [facility] Systolic (mm Hg) 129 08/12/2018 [facility] Diastolic (mm Hg) 79 08/12/2018 [facility] Respitory Rate 18 08/12/2018 [facility] Temperature Oral (F) 97.1 F 08/12/2018 [facility] Heart Rate 90 08/12/2018 [facility] Temperature Oral (F) 97.9 F 08/12/2018 [facility] Respitory Rate 18 08/12/2018 [facility] Heart Rate 79 08/12/2018 [facility] Systolic (mm Hg) 137 08/12/2018 [facility] Diastolic (mm Hg) 88 08/12/2018 [facility] Height 162.56 cm 08/10/2018 [facility] BMI Calculated 29.24 08/10/2018 [facility] Weight 77.273 08/10/2018 [facility] Weight 68.182 08/10/2018 [facility] Height 167.64 cm 08/10/2018 [facility] BMI Calculated 24.26 08/10/2018 [facility] Heart Rate 88 08/02/2018 [facility] Respitory Rate 18 08/02/2018 [facility] Temperature Oral (F) 97.5 F 08/02/2018 [facility] Systolic (mm Hg) 128 08/02/2018 [facility] Diastolic (mm Hg) 84 08/02/2018 [facility] Temperature Oral (F) 98.5 F 08/02/2018 [facility] Systolic (mm Hg) 136 08/02/2018 [facility] Diastolic (mm Hg) 98 08/02/2018 [facility] Heart Rate 88 08/02/2018 [facility] Respitory Rate 18 08/02/2018 [facility] Respitory Rate 18 08/02/2018 [facility] Systolic (mm Hg) 110 08/02/2018 [facility] Diastolic (mm Hg) 75 08/02/2018 [facility] Temperature Oral (F) 98.5 F 08/02/2018 [facility] Heart Rate 87 08/02/2018 [facility] Height 162.56 cm 07/31/2018 [facility] Weight 76.008 07/31/2018 [facility] BMI Calculated 28.76 07/31/2018 [facility] Weight 75 07/30/2018 [facility] Height 162.56 cm 07/30/2018 [facility] BMI Calculated 28.38 07/30/2018 [facility] Heart Rate 94 04/09/2018 [facility] Systolic (mm Hg) 110 04/09/2018 [facility] Diastolic (mm Hg) 59 04/09/2018 [facility] Respitory Rate 18 04/09/2018 [facility] Systolic (mm Hg) 111 04/09/2018 [facility] Diastolic (mm Hg) 96 04/09/2018 [facility] Respitory Rate 18 04/09/2018 [facility] Systolic (mm Hg) 114 04/08/2018 [facility] Diastolic (mm Hg) 70 04/08/2018 [facility] Respitory Rate 12 04/08/2018 [facility] Temperature Oral (F) 98.6 F 04/08/2018 [facility] Heart Rate 92 04/08/2018 [facility] Respitory Rate 16 03/30/2018 [facility] Systolic (mm Hg) 100 03/30/2018 [facility] Diastolic (mm Hg) 63 03/30/2018 [facility] Temperature Oral (F) 98.4 F 03/30/2018 [facility] Heart Rate 99 03/30/2018 [facility] Systolic (mm Hg) 110 03/30/2018 [facility] Diastolic (mm Hg) 75 03/30/2018 [facility] Temperature Oral (F) 98.6 F 03/30/2018 [facility] Respitory Rate 16 03/30/2018 [facility] Heart Rate 75 03/30/2018 [facility] Heart Rate 89 03/30/2018 [facility] Temperature Oral (F) 98.0 F 03/30/2018 [facility] Systolic (mm Hg) 108 03/30/2018 [facility] Diastolic (mm Hg) 72 03/30/2018 [facility] Respitory Rate 16 03/30/2018 [facility] BMI Calculated 28.35 03/27/2018 [facility] Weight 77.273 03/27/2018 [facility] Height 165.1 cm 03/27/2018 [facility] Temperature Oral (F) 97.8 F 03/26/2018 [facility] Heart Rate 91 03/26/2018 [facility] Respitory Rate 18 03/26/2018 [facility] Systolic (mm Hg) 96 03/26/2018 [facility] Diastolic (mm Hg) 65 03/26/2018 [facility] Systolic (mm Hg) 98 03/26/2018 [facility] Diastolic (mm Hg) 64 03/26/2018 [facility] Temperature Oral (F) 98.0 F 03/26/2018 [facility] Heart Rate 105 03/26/2018 [facility] Respitory Rate 18 03/26/2018 [facility] Heart Rate 84 03/26/2018 [facility] Respitory Rate 18 03/26/2018 [facility] Temperature Oral (F) 97.9 F 03/26/2018 [facility] Systolic (mm Hg) 112 03/26/2018 [facility] Diastolic (mm Hg) 75 03/26/2018 [facility] Height 162.56 cm 03/20/2018 [facility] Weight 73.636 03/20/2018 [facility] BMI Calculated 27.87 03/20/2018 [facility] BMI Calculated 29.24 03/19/2018 [facility] Weight 77.273 03/19/2018 [facility] Height 162.56 cm 03/19/2018 [facility] Temperature Oral (F) 98.0 F 05/03/2017 [facility] Respitory Rate 16 05/03/2017 [facility] Systolic (mm Hg) 108 05/03/2017 [facility] Diastolic (mm Hg) 66 05/03/2017 [facility] Systolic (mm Hg) 98 05/03/2017 [facility] Diastolic (mm Hg) 61 05/03/2017 [facility] Respitory Rate 16 05/03/2017 [facility] Systolic (mm Hg) 100 05/03/2017 [facility] Diastolic (mm Hg) 70 05/03/2017 [facility] Respitory Rate 14 05/03/2017 [facility] Temperature Oral (F) 98.6 F 05/03/2017 [facility] Heart Rate 99 05/03/2017 [facility] Weight 72.727 05/03/2017 [facility] Heart Rate 99 02/07/2017 [facility] Temperature Oral (F) 97.9 F 02/07/2017 [facility] Systolic (mm Hg) 149 02/07/2017 [facility] Diastolic (mm Hg) 94 02/07/2017 [facility] Respitory Rate 18 02/07/2017 [facility] Systolic (mm Hg) 133 02/07/2017 [facility] Diastolic (mm Hg) 75 02/07/2017 [facility] Respitory Rate 18 02/07/2017 [facility] Heart Rate 98 02/07/2017 [facility] Temperature Oral (F) 97.6 F 02/07/2017 [facility] Heart Rate 96 02/07/2017 [facility] Respitory Rate 18 02/07/2017 [facility] Systolic (mm Hg) 115 02/07/2017 [facility] Diastolic (mm Hg) 65 02/07/2017 [facility] Temperature Oral (F) 97.8 F 02/07/2017 [facility] Weight 72.727 02/05/2017 [facility] BMI Calculated 27.52 02/05/2017 [facility] Height 162.56 cm 02/05/2017 [facility] Heart Rate 98 01/19/2017 [facility] Temperature Oral (F) 98.8 F 01/19/2017 [facility] Systolic (mm Hg) 137 01/19/2017 [facility] Diastolic (mm Hg) 85 01/19/2017 [facility] Respitory Rate 20 01/19/2017 [facility] Respitory Rate 18 01/19/2017 [facility] Systolic (mm Hg) 140 01/19/2017 [facility] Diastolic (mm Hg) 85 01/19/2017 [facility] Temperature Oral (F) 97.9 F 01/19/2017 [facility] Heart Rate 98 01/19/2017 [facility] Heart Rate 96 01/19/2017 [facility] Systolic (mm Hg) 175 01/19/2017 [facility] Diastolic (mm Hg) 90 01/19/2017 [facility] Temperature Oral (F) 98.8 F 01/19/2017 [facility] Respitory Rate 20 01/19/2017 [facility] Weight 77.273 01/12/2017 [facility] Height 162.56 cm 01/12/2017 [facility] Weight 77.273 01/12/2017 [facility] BMI Calculated 29.24 01/12/2017 [facility] Height 162.56 cm 01/12/2017 [facility] BMI Calculated 29.24 01/12/2017 [facility] Weight 77.273 01/12/2017 [facility] Height 162.56 cm 01/12/2017 [facility] Respitory Rate 18 01/12/2017 [facility] Temperature Oral (F) 99.0 F 01/12/2017 [facility] Heart Rate 89 01/12/2017 [facility] Systolic (mm Hg) 183 01/12/2017 [facility] Diastolic (mm Hg) 89 01/12/2017 [facility] Heart Rate 79 01/12/2017 [facility] Respitory Rate 16 01/12/2017 [facility] Systolic (mm Hg) 202 01/12/2017 [facility] Diastolic (mm Hg) 93 01/12/2017 [facility] Respitory Rate 18 01/12/2017 [facility] Heart Rate 79 01/12/2017 [facility] Systolic (mm Hg) 218 01/12/2017 [facility] Diastolic (mm Hg) 105 01/12/2017 [facility] Height 162.56 cm 01/12/2017 [facility] Temperature Oral (F) 99.0 F 01/12/2017 [facility] Encounters Location Location Details Encounter Type Encounter Number Reason For Visit Attending Provider ADM Date DC Date Status Source [facility] Emergency [id number] Gordo Faria 01/12/2017 01/12/2017 [facility] Inpatient [id number] Anjali Baca 01/12/2017 01/19/2017 [facility] Inpatient [id number] Tere Flores 02/05/2017 02/07/2017 [facility] Emergency [id number] Samuelhetal Rolleeme 05/03/2017 05/03/2017 [facility] Inpatient [id number] Sheron Irvin 03/19/2018 03/26/2018 [facility] Observation [id number] Manuel Reyes 03/27/2018 03/30/2018 [facility] Emergency [id number] Godwin Mejia 04/08/2018 04/09/2018 [facility] Inpatient [id number] Dustin Ochoa 07/30/2018 08/02/2018 [facility] Inpatient [id number] Jayy Rubin 08/10/2018 08/12/2018 [facility] Emergency [id number] Samuel Iheme 09/08/2018 09/09/2018 [facility] Departed Emergency Room [id number] SAMMI BARBER MD 11/06/2018 11/06/2018 [facility] Inpatient [id number] Sheron Irvin 02/23/2019 02/26/2019 [facility] Procedures Procedure Code Date Perfomer Comments Source Abdominal hysterectomy [id number] [facility] Cardiac catheterization, left heart [id number] [facility] Cholecystectomy [id number] [facility] Amputation of hand at wrist<sup>1</sup> [id number] right hand [facility] Mastectomy<sup>2</sup> [id number] Left Breast [facility] Assessment and Plan Assessment and Plan Date Source Extracted from:Title: Clinical Document Author: George Saha Date: 02/26/19 Progress Note - Daily [facility] Completed: Jan, 11:16 by George Saha RM: 248 - 1P, SE C2A VERONICA JEFFERSON 53y (: 1965) F Attending: Sheron Irvin MD Service: Internal Medicine Reason for Admission: ACS (ACUTE CORONARY SYNDROME) Working DRG: Code status: None Specified=FULL CODE Current diet: Isolation: Contact Allergies: [place] SUBJECTIVE no new events no n/v no abd pain OBJECTIVE 24hr Labs 02/26 1036 POC Performing Locatio See Note Glucose POC 280 H 02/26 0711 POC Performing Locatio See Note Glucose POC 123 H 02/251 POC Performing Locatio See Note Glucose POC 80 02/25 2039 POC Performing Locatio See Note Glucose POC 57 L 02/25 1724 POC Performing Locatio See Note Glucose POC 75 02/25 1217 POC Performing Locatio See Note Glucose POC 153 H 02/24 2039 Hep C Ab Positive 02/24 1240 HCV RNA VirLoad Not Detected HCV RNA Log10 <1.2 [place] still necessary (Yes/No): Line still necessary (Yes/No): Vitals Tmp(F) Pulse BP RR SpO2 FIO2 02/26 08:00 98 77 96/57 18 99 --- 02/26 06:55 ---- --- ----- 16 95 --- 02/25 23:31 97.5 71 140/72 16 98 --- 02/25 21:49 ---- --- ----- 16 98 21% 02/25 20:45 97 61 105/71 16 97 --- 24 Hr Tmax: 98.5F (36.94c) at 02/25 16:31 Vital Signs are the last 5 in the past 48 hours. Date Wt(kg) Wt(lb) Ht(cm) Ht(in) Method 02/25 77.39 170.25 Estimated 02/24 77.27 170.00 162.56 64.00 Estimated 02/23 (initial) 77.27 170.00 Estimated 02/23 162.56 64.00 Stated I&O Record In Out Bal 02/26 24hr Tot 100 0 100 02/25 24hr Tot 0 0 0 Medications (20) Active Scheduled Meds (7): 02/24/19 albuterol-ipratropium (DuoNeb inhalation solution) 3 mL NEB RQID 02/24/19 aspirin 325 mg PO Daily 02/24/19 insulin glargine 50 unit SUB-Q BID 0 ml/hr 02/24/19 metoprolol (metoprolol extended release) 100 mg PO Daily 02/24/19 pantoprazole 40 mg PO BID-Before Meals 02/24/19 pregabalin 150 mg PO BID 02/24/19 venlafaxine 75 mg PO Daily Unscheduled Meds: None PRN Meds (13): 02/24/19 Dextrose 50% in Water IV (Dextrose 50% Syringe) 12.5 gm IVP PRN 02/24/19 Dextrose 50% in Water IV (Dextrose 50% Syringe) 25 gm IVP PRN 02/23/19 albuterol (albuterol 0.083% inhalation solution) 2.49 mg NEB RQ6H 02/24/19 glucagon 1 mg IM PRN 02/24/19 insulin lispro 2 unit SUB-Q TID-Before Meals 02/24/19 insulin lispro 4 unit SUB-Q TID-Before Meals 02/24/19 insulin lispro 6 unit SUB-Q TID-Before Meals 02/24/19 insulin lispro 8 unit SUB-Q TID-Before Meals 02/24/19 insulin lispro 10 unit SUB-Q TID-Before Meals 02/24/19 insulin lispro 1 unit SUB-Q Bedtime 02/24/19 insulin lispro 2 unit SUB-Q Bedtime 02/24/19 insulin lispro 3 unit SUB-Q Bedtime 02/24/19 insulin lispro 4 unit SUB-Q Bedtime One Time Meds: None Continuous Infusions: None EXAM General: awake, alert, no acute distress HEENT: normocephalic, atraumatic, sclera anicteric Neck: Supple Respiratory: Clear to auscultation bilaterally, no retractions Cardiac: S1, S2 distinct, no murmur Abdomen: soft, nontender, nondistended, +BS Ext: no LE edema, no rash Skin: warm, pink, dry Neuro: AxOx3 IMPRESSION: 1. elevated lipase - no evidence of pancreatitis on CT or clinically 2. ?cirrhosis, likely 2/2 to ETOH use - Class A, MELD 9 -AFP WNL -Liver U/S: hepatocellular disease. There is no focal liver abnormality. No evidence of portal hypertension. 3. marijuana use 4. hx of Hep C -viral load not detected, RNA < 1.2 5. atypical chest pain 6. hyperglycemia PLAN: 1. PPI BID 2. recommend outpatient EGD/colonoscopy 3. Hep C genotype pending 4. marijuana cessation emphasized 5. cardiology following 6. management of hyperglycemia per primary 7. ok to dc from GI standpoint. F/up with Dr. Donaldson in GI clinic in 1 week. GI Attending I have examined the patient with the Physician Nurse Practitioner Manager and confirmed the essential components of history, physical examination, diagnosis and treatment plan. I agree with the patient's care as documented by the Physician Nurse Practitioner Manager.. Extracted from:Title: Cardiology Consultation Author: Sebastian Vaz MD Date: 02/24/19 [facility] Consult Note Attending: Sheron Irvin MD Service: Internal Medicine Code status: None Specified=FULL CODE Reason for Admission: ACS Working DRG: Isolation: Contact Consulting Physicians: Gage Bonilla MD Office: Service: Cardiology Sheron Irvin MD Office: Service: Medicine Felice Worrell MD Office: Service: Gastroenterology Sebastian Vaz MD Office: Service: Cardiology Veronica Genao MD Office: Service: Infectious Disease, Medicine Reason for Consultation: chest pain syncope Chief Complaint: chest pain syncope HPI: 53 yo presents with chest pain, pressure, dizziness, and syncope. Review of Systems: 10 point review of system was performed and was negative other than mentioned in HPI. Past Medical History: MRSA (methicillin resistant staph aureus) culture positive Family History: Mother: Pancreatic cancer Father: [place] - Lung cancer Social History: Alcohol Details: Past, Type Beer, Wine, Liquor. Frequency: Several times per day. Last use: 2010. Previous treatment: Outpatient. Tobacco Details: Use: Never smoker. Tobacco smoke exposure: None. Did the Patient Smoke Cigarettes Anytime During the Last 365 Days? No. Cessation Counseling Provided? No. Details: Use: Never smoker. Tobacco smoke exposure: None. Did the Patient Smoke Cigarettes Anytime During the Last 365 Days? No. Cessation Counseling Provided? No. Substance Abuse Details: Use: Current. Type: Marijuana. IV drug use: No. Drug use interferes with work/home: No. Ready to change: No. Household substance abuse concerns: No. Cessation Education Provided: Yes. Exam: Vitals Tmp(F) Pulse BP RR SpO2 FIO2 02/24 19:43 ---- --- ----- 20 96 --- 02/24 19:26 98.4 73 100/73 20 99 --- 02/24 15:17 98.3 81 112/69 16 96 --- 02/24 12:21 98.1 81 115/64 17 99 --- 02/24 08:10 97.8 89 136/84 16 98 --- 24 Hr Tmax: 98.5F (36.94c) at 02/23 23:19 Vital Signs are the last 5 in the past 48 hours. Date Wt(kg) Wt(lb) Ht(cm) Ht(in) Method 02/24 77.27 170.00 162.56 64.00 Estimated 02/23 (initial) 77.27 170.00 Estimated 02/23 162.56 64.00 Stated General: well developed. well nourished. obese. Cardiovascular: PMI non displaced. regular. S1 and S2. No murmurs, rubs or gallops. Respiratory: No respiratory distress. Clear to auscultation bilaterally. Abdomen: soft, non-tender, no masses. No hepato- or splenomegaly. Neuro/Psych: Alert and oriented to person, place and time. Normal affect. Allergies: [place] Medications (26) Active Scheduled Meds (8): 02/24/19 QUEtiapine 25 mg PO BID 02/24/19 albuterol-ipratropium (DuoNeb inhalation solution) 3 mL NEB RQID 02/24/19 aspirin 325 mg PO Daily 02/24/19 insulin glargine 50 unit SUB-Q BID 0 ml/hr 02/24/19 metoprolol (metoprolol extended release) 100 mg PO Daily 02/24/19 pantoprazole 40 mg PO BID-Before Meals 02/24/19 pregabalin 150 mg PO BID 02/24/19 venlafaxine 75 mg PO Daily Unscheduled Meds: None PRN Meds (13): 02/24/19 Dextrose 50% in Water IV (Dextrose 50% Syringe) 12.5 gm IVP PRN 02/24/19 Dextrose 50% in Water IV (Dextrose 50% Syringe) 25 gm IVP PRN 02/23/19 albuterol (albuterol 0.083% inhalation solution) 2.49 mg NEB RQ6H 02/24/19 glucagon 1 mg IM PRN 02/24/19 insulin lispro 2 unit SUB-Q TID-Before Meals 02/24/19 insulin lispro 4 unit SUB-Q TID-Before Meals 02/24/19 insulin lispro 6 unit SUB-Q TID-Before Meals 02/24/19 insulin lispro 8 unit SUB-Q TID-Before Meals 02/24/19 insulin lispro 10 unit SUB-Q TID-Before Meals 02/24/19 insulin lispro 1 unit SUB-Q Bedtime 02/24/19 insulin lispro 2 unit SUB-Q Bedtime 02/24/19 insulin lispro 3 unit SUB-Q Bedtime 02/24/19 insulin lispro 4 unit SUB-Q Bedtime One Time Meds (5): 02/23/19 (Completed) Insulin regular 10 unit IVP ONCE 02/23/19 (Completed) Sodium Chloride 0.9% IV (Sodium Chloride 0.9% (Bolus) IV) 2,318.19 mL IV ONCE 2,000 ml/hr 02/23/19 (Completed) aspirin 325 mg PO ONCE 02/23/19 (Completed) morphine Sulfate 4 mg IVP ONCE 02/23/19 (Completed) ondansetron 4 mg IVP ONCE Continuous Infusions: None Labs (Last four charted values) WBC 8.0 (FEB 23) Hgb 12.2 (FEB 23) Hct 37.1 (FEB 23) Plt 271 (FEB 23) Na L 134 (FEB 24) 139 (FEB 23) L 131 (FEB 23) K 5.0 (FEB 24) 4.5 (FEB 23) H 6.0 (FEB 23) CO2 L 20 (FEB 24) L 22 (FEB 23) L 20 (FEB 23) Cl 103 (FEB 24) H 110 (FEB 23) 100 (FEB 23) Cr 1.34 (FEB 24) 1.35 (FEB 23) H 1.69 (FEB 23) BUN H 25 (FEB 24) H 30 (FEB 23) H 35 (FEB 23) Glucose Random H 395 (FEB 24) H 224 (FEB 23) C 467 (FEB 23) Mg 2.2 (FEB 23) Phos 3.2 (FEB 23) Ca L 8.2 (FEB 24) L 7.7 (FEB 23) L 8.4 (FEB 23) PT 12.9 (FEB 23) INR 0.99 (FEB 23) Troponin <0.02 (FEB 24) <0.02 (FEB 23) Total CK 134 (FEB 23) Assessment: Acute ischemic heart disease, unspecified (I24.9) Hyperglycemia, unspecified (R73.9) Hyperkalemia (E87.5) Acute kidney failure, unspecified (N17.9) Plan: -echo and stress pending -ruled out for AMI Thank you for involving us in this patient's care. 02/26/2019 JIM Hines Extracted from:Title: Progress Note * Author: Jayy Rubin MD Date: 08/11/18 Impression and Plan Generalized weakness secondary to hypovolemia Orthostatic hypotension secondary to hypovolemia Costochondritis Hyperkalemia Hypertension Diabetes mellitus type 2 Substance abuse Depression Coronary artery disease History of colitis status post completion of antibiotics Orthostatic vital signs positive for orthostatic hypotension Troponins negative x1 BNP negative. Chest x-ray are unremarkable Consider cardiology evaluation if repeat EKG and troponins are positive. Continue NS for fluid resuscitation. Monitor electrolytes and make adjustments as needed Monitor glucose and make adjustments as needed. Continue monitoring patient on telemetry. Prophylaxis: -GI: NO GI PPX -DVT: Continue Anticoagulation Disposition: Home; patient would like to stay 1 more day. Anticipate discharge in 24 hours Code Status: -Status: Full Code -Decision Maker: Patient -Surrogate: Extracted from:Title: General Admission H&P * Author: Jayy Rubin MD Date: 08/10/18 Impression and Plan Generalized weakness secondary to hypovolemia Near syncope secondary to hypovolemia Hyperkalemia Hypertension Diabetes mellitus type 2 Substance abuse Depression Coronary artery disease History of colitis status post completion of antibiotics EKG was concerning for AV block. We will get a repeat EKG. Orthostatic vital signs pending Troponins negative x1 BNP negative. Chest x-ray are unremarkable We will consider cardiology evaluation. We will continue NS for fluid resuscitation. Monitor glucose and make adjustments as needed. Continue monitoring patient on telemetry. Prophylaxis: -GI: NO GI PPX -DVT: Continue Anticoagulation Disposition: Home; to to be discharged in 24-48-hour Code Status: -Status: Full Code -Decision Maker: Patient -Surrogate: 08/12/2018 [place] Extracted from:Title: Hospitalist Progress Note Author: Sebastian Treviño DO Date: 08/01/18 Impression and Plan Acute hemorrhagic colitis Urinary tract infection, present on admission Dehydration with hypovolemia Chronic systolic congestive heart failure with an ejection fraction 45%, stable Essential hypertension Diabetes mellitus type 2 CKD stage III, stalbe Cirrhosis secondary to hepatitis C and previous alcohol abuse, stable Plan GI consulted, appreciate recommendations C. difficile ordered negative. Stool cultures ordered - pending Fecal occult noted to be positive. Likely from colitis. Closely monitor H&H. Transfuse if less than 7.0 Urine cultures ordered - pending Continue broad-spectrum antibiotics with Zosyn to cover for colitis and UTI. De-escalate pending culture results Continue supportive care with IV fluids, antiemetics, pain control as needed. Continue to monitor for potential fluid overload from IV fluids Follow daily renal function. Avoid nephrotoxic medications. Renally dose medications Resume home antihypertensive medications with metoprolol. Hold lisinopril at this time Resume home antihyperglycemic medications. Convert Levemir to Lantus. Start sliding scale insulin Slowly advancing diet as tolerated DVT prophylaxis: SCDs Disposition: Continue supportive care and antibiotics. Follow cultures. Follow GI recommendations. 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 The patient began having mid/lower abdominal pain 2 days ago, pressure like, moderate, no exacerbating factors. Associated to persistent nausea and vomiting. No hematemesis. Yesterday she began having loose stools, with mucus and blood. Denies fever or chills. In the ED a CT scan showed signs of colitis. Past medical history: Liver cirrhosis. Hepatitis C DM2 CAD Chronic systolic heart failure with EF 45% Chronic renal failure stage III IBS Past surgical history: Cholecystectomy Abdominal hysterectomy Cardiac catheterization, left heart Amputation of hand at wrist Mastectomy Family history: Mother: Pancreatic cancer Father: [place] - Lung cancer Social history: Used to abuse alcohol until 8 years ago. Stop smoking 8 years ago as well. Used to snort cocaine, stopped several years ago. Allergies: [place] *Medications: - Please see completed medication reconciliation list. *Review of systems: Except for what was mention in the H&P, rest of all review of systems are negative. *PHYSICAL EXAM: Vitals Tmp(F) Pulse BP RR SpO2 FIO2 07/30 18:23 ---- 102 146/86 18 96 --- 07/30 17:56 ---- 108 146/88 18 98 --- 07/30 16:47 ---- 106 139/78 18 97 --- 07/30 16:46 ---- 112 136/84 18 98 --- 07/30 16:32 ---- 104 147/72 18 98 --- 24 Hr Tmax: 97.4F (36.33c) at 07/30 14:20 Vital Signs are the last 5 in the past 48 hours. General: patient lying in bed in no distress. HEENT: YVROSE, EOMI. Neck: supple, no jvd. no thyromegaly. Chest: clear breath sounds bilaterally, no wheezing, rales or bronchi. Cardiovascular: regular rate and rhythm. No murmurs or gallops. Abdomen: soft, tenderness to palpation in the midabdomen. Musculoskeletal: trace lower extremity edema bilaterally. 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 Skin: no rash. [facility] BUN: 40 mg/dL High (07/30/18) Hct: 40.1 % (07/30/18) Hgb: 13.3 g/dL (07/30/18) MCH: 27.4 pg (07/30/18) MCHC: 33.2 g/dL (07/30/18) MCV: 82.4 fL (07/30/18) MPV: 7.5 fL (07/30/18) Platelet: 201 K/CMM (07/30/18) RBC: 4.87 M/CMM (07/30/18) RDW: 13.7 % (07/30/18) WBC: 8.4 K/CMM (07/30/18) CHD Risk: 4.56 (03/29/18) Chol: 178 mg/dL (03/29/18) HDL: 39 mg/dL Low (03/29/18) LDL (Calculated): 92 mg/dL (03/29/18) Tri mg/dL High (03/29/18) VLDL: 47 (03/29/18) CK MB: 2.1 ng/mL (04/08/18) -CT abdomen/pelvis: 1. Nonspecific inflammatory changes involving the colon with some wall enhancement endoluminal fluid and subtle colonic wall thickening and some pericolonic fat stranding, correlate for infectious or inflammatory colitis sequela ASSESSMENT/PLAN: 1. Acute hemorrhagic colitis, query for infectious colitis, ischemic colitis, IBD. Will admit the patient. Start her on IV abx, IVFs. Get mixer driver consult. Get stool analysis, wbc, c. diff. Monitor clinically. 2. UTI. IV abx. F/u cultures. 3. Dehydration with hypovolemia. IVFs. 4. Chronic systolic heart failure with EF 45%. No signs of exacerbation. 5. Hypertension. Resume metoprolol. 6. Chronic renal failure stage III. Stable. Monitor renal function. 7. Dm2. Resume long acting insulin, ISS. 8. Prior polysubstance abuse. Get UDS. 9. Liver cirrhosis 2nd to hepatitis C and prior alcohol abuse. Stable. 10. VTE prophylaxis. SCDs, ambulation. 08/02/2018 [facility] Extracted from:Title: Clinical Document Author: Chilango Rosales MD Date: 03/30/18 Progress Note Chilango Rosales M.D. [facility] Follow up reason:Chest pain Doing ok no chest pain Had stress test and was normal Other Diagnosis: * Chest pain * Right foot osteomyelitis 1. Hypertension. 2. Type 1 diabetes. 3. Tendency for recurrent MRSA infections; left breast surgery for necrotizing fascitis and Right arm below elbow amputation 4. Hepatitis C for which she was treated now cirrhosis of liver. 5. Chronic diastolic heart failure. 6. Bipolar disorder. 7. History of DVT and pulmonary embolism in the past. Vitals Tmp(F) Tmp(C) Ttype BP MAP Pulse RR SpO2 FIO2 ETCO2 03/30 08:55 98.0 36.67 oral 108/72 --- 89 16 --- --- --- 03/30 03:09 98.1 36.72 oral 115/76 --- 81 16 95 --- --- 03/29 23:58 98.2 36.78 oral 101/69 --- 91 16 96 --- --- 03/29 20:40 97.9 36.61 oral 138/86 --- 80 16 97 --- --- 03/29 18:04 ---- ---- ---- 130/84 --- --- -- --- --- --- NECK: No JVD. HEENT: EOMI. HEART: S1, S2 is normal with a soft ejection systolic murmur 2/6 intensity in left leg parasternal lower area or tricuspid area. CHEST: Bilateral air entry present. No wheezing, no crepitation. ABDOMEN: Bowel sounds present, nontender, nondistended. NEUROLOGIC: Alert, awake, oriented x 3, no signs of lateralization. EXTREMITIES: No edema. Labs and Diagnostic Work up: Labs (Last four charted values) WBC 7.4 (MAR 27) Hgb 12.6 (MAR 27) Hct 38.1 (MAR 27) Plt 189 (MAR 27) Na 144 (MAR 28) 142 (MAR 27) 136 (MAR 27) K 4.9 (MAR 28) H 5.2 (MAR 27) H 5.7 (MAR 27) CO2 31 (MAR 28) 25 (MAR 27) 28 (MAR 27) Cl 106 (MAR 28) 106 (MAR 27) 104 (MAR 27) Cr 1.34 (MAR 28) 1.35 (MAR 27) H 1.42 (MAR 27) BUN H 32 (MAR 28) H 34 (MAR 27) H 35 (MAR 27) Glucose Random H 164 (MAR 28) H 169 (MAR 27) H 209 (MAR 27) Mg 2.3 (MAR 27) Phos 2.9 (MAR 27) Ca 8.8 (MAR 28) 8.9 (MAR 27) 9.1 (MAR 27) Troponin <0.02 (MAR 28) 0.02 (MAR 27) <0.02 (MAR 27) CK MB 1.2 (MAR 27) Total CK 36 (MAR 28) 48 (MAR 27) 44 (MAR 27) Medications Medications (20) Active Scheduled: (10) amLODIPine 5 mg TAB 5 mg 1 tab, PO, BID aspirin 81 mg ECT 81 mg 1 tab, PO, Daily gentamicin 0.1% 15 gm top CRM 1 appl, TOP, Q24H heparin 5000 unit/1 ml INJ VL 5,000 unit 1 mL, SUB-Q, Q8H insulin GLARGINE 1 unit/0.01 mL INJ SYR 30 unit 0.3 mL, SUB-Q, BID piperacillin-tazobactam INJ + sodium chloride 0.9% INJ 100 mL 3.375 gm, IVPB, ABXQ8H pravastatin 20 mg TAB 40 mg 2 tab, PO, Bedtime pregabalin 75mg cap 150 mg 2 cap, PO, BID QUEtiapine 25 mg TAB 25 mg 1 tab, PO, BID venlafaxine 37.5 mg ERC (XR) 75 mg 2 cap, PO, Daily Continuous: (0) PRN: (10) albuterol 90 microgram/inh 8gm AER HFA 2 puff, INHALER, Q6H Dextrose 50% 50 ml INJ syringe 12.5 gm 25 mL, IVP, PRN Dextrose 50% 50 ml INJ syringe 25 gm 50 mL, IVP, PRN glucagon recombinant 1 mg PDR 1 mg, IM, PRN HYDROmorphone 2 mg TAB 2 mg 1 tab, PO, Q4H insulin lispro 100 unit/ml 3 ml Vial 1 unit 0.01 mL, SUB-Q, TID-Before Meals insulin lispro 100 unit/ml 3 ml Vial 2 unit 0.02 mL, SUB-Q, TID-Before Meals insulin lispro 100 unit/ml 3 ml Vial 3 unit 0.03 mL, SUB-Q, TID-Before Meals insulin lispro 100 unit/ml 3 ml Vial 4 unit 0.04 mL, SUB-Q, TID-Before Meals insulin lispro 100 unit/ml 3 ml Vial 5 unit 0.05 mL, SUB-Q, TID-Before Meals Assessment/Plan : -Stress test normal -Chest pain: last cath at [facility] (formerly [facility]) showed 50% LAD disease -Continue ASA and statin -ok to discharge from cardiac stand point Extracted from:Title: Clinical Document Author: Nathan Molina MD Date: 03/27/18 History and physical. CHIEF COMPLAINT : Chest pain HPI : This is a 52-year-old female patient with history of diabetes mellitus hypertension hyperlipidemia hepatitis C history of cirrhosis coronary artery disease, CHF with EF of 45-50% history of polysubstance abuse bipolar disorder right upper extremity below elbow amputation who has had recent admission to [facility] and discharged yesterday discharge diagnosis was right fifth toe cellulitis and osteomyelitis patient was discharged to nursing facility for IV antibiotics planned 3 weeks per the patient patient was doing well. Patient started having central chest pain since this morning on and off pain score of 2-3 out of 10 associated with shortness of breath palpitations no diaphoresis No significant extubated and factors denies any radiation to the arms no neck radiation. Denies any dizziness. No cough no phlegm. She has no fever chills weight loss no abdominal pain diarrhea constipation no dysuria urgency frequency. Reveiw of systems: All systems were reviewed positive findings indicated above rest of systems is negative. Past Medical history Hepatitis c MRSA (methicillin resistant staph aureus) culture positive Hypertension Sleep apnea Irritable bowel syndrome (IBS) Herniated lumbar intervertebral disc Cirrhosis, alcoholic History of diabetes mellitus Coronary artery disease History of heart failure History of renal failure History of bipolar disorder History of DVT and pulmonary embolism in the past History of hepatitis C History of cervical spine and lumbar spine surgery Abdominal hysterectomy Cholecystectomy Past Surgical history : As above Allergies (1) Active Reaction [place] None Documented Home Medications (9) Active aspirin 81 mg tablet, chewable 81 mg=1 tab, PO, Daily gentamicin topical 0.1% cream 1 appl, TOP, Q24H hydromorphone 2 mg oral tablet 2 mg=1 tab, PRN, PO, Q4H Levemir 30 units, SUB-Q, BID lisinopril 10 mg oral tablet 10 mg=1 tab, PO, Daily metoprolol 50 mg oral tablet, extended release 50 mg=1 tab, PO, Daily pregabalin 75 mg oral capsule 150 mg=2 cap, PO, BID ProAir HFA 90 mcg/inh inhalation aerosol with adapter 180 microgram=2 puff, PRN, INHALER, Q6H QUEtiapine 25 mg oral tablet 25 mg=1 tab, PO, BID This list needs to be updated patient was also on IV antibiotics upon discharge please see admission medication reconciliation for details Family history Mother: Pancreatic cancer Father: [place] - Lung cancer Social history Alcohol Details: Past, Type Beer, Wine, Liquor. Frequency: Several times per day. Last use: 2010. Previous treatment: Outpatient. Tobacco Details: Use: Never smoker. Tobacco smoke exposure: None. Did the Patient Smoke Cigarettes Anytime During the Last 365 Days? No. Cessation Counseling Provided? No. Details: Use: Never smoker. Tobacco smoke exposure: None. Did the Patient Smoke Cigarettes Anytime During the Last 365 Days? No. Cessation Counseling Provided? No. Substance Abuse Details: Use: Current. Type: Marijuana. IV drug use: No. Drug use interferes with work/home: No. Ready to change: No. Household substance abuse concerns: No. Cessation Education Provided: Yes. EXAMINATION Vital Signs (last 24 hrs) Last Charted Temp Oral 97.3 DegF (MAR 27 10:52) Heart Rate Apical 81 bpm (MAR 27 15:19) Resp Rate L 12BRMIN (MAR 27 15:19) SBP 128 mmHg (MAR 27 15:19) DBP 90 mmHg (MAR 27:) SpO2 98 % (MAR 27 15:) Weight 77.273 kg (MAR 27 10:52) Height 165.1 cm (MAR 27 10:52) BMI 28.35 (MAR 27 10:52) General exam patient is alert oriented 3 not in any acute distress. Neck no JVD no cervical lymphadenopathy Heart first and second heart sounds normal no murmurs appreciable Lungs are clear to auscultation and equal bilaterally Abdomen soft nontender bowel sounds present Lower limbs no cyanosis clubbing edema Right foot fifth digit redness swelling noted -per patient and family is better than before Neurologically alert oriented 3 moving all 4 limbs Right upper extremity below elbow amputation noted Labs (Last four charted values) WBC 7.4 (MAR 27) Hgb 12.6 (MAR 27) Hct 38.1 (MAR 27) Plt 189 (MAR 27) Na 136 (MAR 27) K H 5.7 (MAR 27) CO2 28 (MAR 27) Cl 104 (MAR 27) Cr H 1.42 (MAR 27) BUN H 35 (MAR 27) Glucose Random H 209 (MAR 27) Mg 2.3 (MAR 27) Phos 2.9 (MAR 27) Ca 9.1 (MAR 27) Troponin <0.02 (MAR 27) CK MB 1.2 (MAR 27) Total CK 44 (MAR 27) Medications (1) Active Scheduled: (0) Continuous: (0) PRN: (1) sodium chloride 0.9% 10ml sterile flush syr BD 10 mL, IVP, PRN Vital Signs (last 24 hrs) Last Charted Temp Oral 97.3 DegF (MAR 27:52) Heart Rate Apical 81 bpm (MAR 27:) Resp Rate L 12BRMIN (MAR 27:) SBP 128 mmHg (MAR 27:) DBP 90 mmHg (MAR 27 15:) SpO2 98 % (MAR 27:) Weight 77.273 kg (MAR 27 10:52) Height 165.1 cm (MAR 27 10:52) BMI 28.35 (MAR 27 10:52) Imaging Studies (last 36 hours) Chest 1view DX 03/27/2018 12:17 Impression: 1. No active disease. 2. The tip of the right upper extremity PICC is in the superior vena cava. SL: [id number] Assesment and Plan This is a 52-year-old female patient with multiple comorbidities as above who was recently admitted for right fifth toe osteomyelitis and cellulitis was on IV antibiotics discharged was intermediate facility now comes back with chest pain patient was noted on labs to have mildly increased creatinine and high potassium Issues Chest pain for evaluation Mildly increased creatinine and elevated potassium Coronary artery disease History of heart failure Right fifth toe lower limb -cellulitis and osteomyelitis History of MRSA Hypertension Diabetes mellitus Plan #1 we will admit to inpatient medicine we will do vital signs every 4 #2 we will have the patient on telemetry and insulin sliding scale Patient will be on a diabetic diet #3 for the chest pain question atypical versus rule out acute coronary syndrome We will do cardiac enzymes cardiology consultation has been called by the ER physician already Patient does not have any acute chest pain at this time We will await further recommendation from cardiology #4 Creatinine mildly elevated and mildly with potassium -he will recheck by repeating BMP if still elevated we will treat hypokalemia consider some gentle hydration. #5 Right foot fifth digit cellulitis and osteomyelitis -continue with IV antibiotics are prescribed No fevers #6 hypertension continue home medications #7 we will continue other home medications #8 DVT prophylaxis with subcu heparin #9 patient is a full code Plan DVT prophylaxis CODE STATUS Addendum by Nathan Molina MD on 03/27/2018 22:00 Noted creatinine - improved. K down to 5.2 I will hold the lisinopril and diuretics for now She was on Lasix and Spiranolactone per notes The list of medications from the assisted [facility] 03/30/2018 [facility] Extracted from:Title: Clinical Document Author: Kevon Vaz DPYasmine Date: 03/26/18 Podiatric Surgery Progress Note Kevon Vaz DPYasmine [facility] SUBJECTIVE: Pt seen at bedside; c/i increased swelling and pain along foot; MEDICATIONS: Scheduled Meds (10):QUEtiapine, aspirin (aspirin 81 mg tablet, chewable), furosemide (furosemide 40 mg oral tablet), gentamicin topical (gentamicin topical 0.1% cream), insulin glargine, lisinopril, piperacillin-tazobactam + Sodium Chloride 0.9% IV 100 mL (Zosyn + Sodium Chloride 0.9% IV 100 mL), spironolactone, vancomycin 750 mg + Dextrose 5% in Water IV 250 mL, venlafaxine Unscheduled Meds: None PRN Meds (16):Dextrose 50% in Water IV (Dextrose 50% Syringe), Dextrose 50% in Water IV (Dextrose 50% Syringe), acetaminophen-hydrocodone ([place] 5/325 oral tablet), albuterol (ProAir HFA 90 mcg/inh inhalation aerosol with adapter), glucagon, hydromorphone (Dilaudid), insulin lispro, insulin lispro, insulin lispro, insulin lispro, insulin lispro, insulin lispro, insulin lispro, insulin lispro, insulin lispro, ondansetron (Zofran) One Time Meds: None Continuous Infusions: None ALLERGIES: Allergies (1) Active Reaction NKDA None Documented OBJECTIVE: AAO x 3 in NAD; Dorsalis Pedis/Posterior Tibial pulses palpable on the right foot; skin temperature is warm to touch; ulcer along the distal aspect of the right fifth toe with erythema and edema; no purulent discharge; light touch pinprick sensation is reduced; no calf tenderness Vitals and Temp: Vitals Tmp(F) Pulse BP RR SpO2 FIO2 03/26 07:55 97.9 84 112/75 18 97 --- 03/26 03:22 98.6 79 100/67 16 97 --- 03/26 00:06 98.0 85 109/71 16 --- --- 03/25 20:23 98.2 95 111/78 18 97 --- 03/25 15:25 97.8 88 113/78 18 98 --- 24 Hr Tmax: 98.6F (37.00c) at 03/26 03:22 Vital Signs are the last 5 in the past 48 hours. Labs (Last four charted values) WBC 6.5 (MAR 25) 7.1 (MAR 24) 7.1 (MAR 23) 5.2 (MAR 21) Hgb L 11.3 (MAR 25) L 11.8 (MAR 24) 12.6 (MAR 23) L 11.6 (MAR 21) Hct L 34.0 (MAR 25) L 35.0 (MAR 24) 37.4 (MAR 23) L 34.7 (MAR 21) Plt 179 (MAR 25) 198 (MAR 24) 218 (MAR 23) 197 (MAR 21) Na 143 (MAR 25) 141 (MAR 24) 139 (MAR 23) 140 (MAR 21) K 4.5 (MAR 25) 4.5 (MAR 24) 4.9 (MAR 23) 4.7 (MAR 21) CO2 25 (MAR 25) 29 (MAR 24) 28 (MAR 23) 32 (MAR 21) Cl 108 (MAR 25) 105 (MAR 24) 103 (MAR 23) 102 (MAR 21) Cr 1.10 (MAR 25) 1.01 (MAR 24) 1.17 (MAR 23) 1.02 (MAR 21) BUN H 27 (MAR 25) H 27 (MAR 24) 22 (MAR 23) H 24 (MAR 21) Glucose Random H 161 (MAR 25) 88 (MAR 24) H 133 (MAR 23) H 177 (MAR 21) Mg 2.1 (MAR 25) 2.1 (MAR 24) 2.2 (MAR 23) Ca 8.5 (MAR 25) 8.7 (MAR 24) 9.3 (MAR 23) 8.9 (MAR 21) IMAGING: MRI of the right foot showed findings compatible with early osteomyelitis of the distal phalanx, right fifth toe. X-ray of the left and right foot showed no radiographic abnormalities. Venous Dopplers showed no evidence of a DVT. ASSESSMENT: 1. Infected ulceration, fifth digit, right foot with acute osteomyelitis. 2. Cellulitis, right foot. 3. Diabetes mellitus, peripheral neuropathy. PLAN: Continue IV antibiotics per infectious disease Long-term IV antibiotics to treat osteomyelitis Local wound care with gentamicin cream Surgical shoe pain control d/c planning - SNF; awaiting insurance auth 03/26/2018 [facility] Extracted from:Title: Clinical Document Author: Tammy Ni MD Date: 02/07/17 Subjective No acute events overnight. Patient is feeling well today, she is sitting up and eating. Review of Systems Constitutional: Negative except as documented in history of present illness. Eye: Negative except as documented in history of present illness. Ear/Nose/Mouth/Throat: Negative except as documented in history of present illness. Respiratory: Negative except as documented in history of present illness. Cardiovascular: Negative except as documented in history of present illness. Gastrointestinal: Negative except as documented in history of present illness. Genitourinary: Negative except as documented in history of present illness. Hematology/Lymphatics: Negative except as documented in history of present illness. Endocrine: Negative except as documented in history of present illness. Musculoskeletal: Negative except as documented in history of present illness. Integumentary: Negative except as documented in history of present illness. Neurologic: Negative except as documented in history of present illness. Vitals Tmp(F) Tmp(C) Ttype BP MAP Pulse RR SpO2 FIO2 ETCO2 02/07 07:15 97.8 36.56 oral 115/65 --- 96 18 99 --- --- 02/07 04:49 97.5 36.39 oral 122/75 --- 78 18 99 --- --- 02/07 01:04 97.4 36.33 oral 110/69 --- 96 18 97 --- --- 02/06 20:22 97.6 36.44 oral 114/73 --- 102 18 99 --- --- 02/06 16:18 98 36.67 oral 143/83 --- 109 18 99 --- --- 24 Hr Tmax: 99.3F (37.39c) at 02/06 12:00 Vital Signs are the last 5 in the past 48 hours. 24 Hr Tmin: 97.4F (36.33c) at 02/07 01:04 Weights are the last 5 in 60 days, plus initial. Date Wt(kg) Wt(lb) Ht(cm) Ht(in) Method BMI BSA 02/07 79.01 173.82 Measured 02/05 (initial) 72.73 160.00 Estimated 27.5 1.81 02/05 162.56 64.00 Stated 24 Hr Point of Care Glucoses 02/07 0811 Glucose POC 153 H 02/06 2112 Glucose POC 229 H 02/06 1616 Glucose POC 165 H 02/06 1201 Glucose POC 279 H Most Recent Scores: 02/06/17 [facility] Fall Score 0 02/06/17 Derek Score 20 02/06/17 [place] Coma Score 15 02/06/17 Pain Intensity NRS (0-10) 2 Lines, Tubes, and Drains: 02/05/2017 16:00 Peripheral Lines: Antecubital Left 18 gauge Over the needle catheter 02/05/2017 12:40 Peripheral Lines: Antecubital Right 20 gauge Over the needle catheter (no surgical procedures documented) =====FOOD/NUTRITION SERVICES===== Diet Carbohydrate Controlled 02/05/17 23:35:00 CDT, Diabetic/4carb per meal (1800 duncan) Oral Supplements 02/06/17 11:51:00 CDT, LoCarb HiPro (Boost Glucose), 3 cans/units per 24 hours =====DENTAL COORDINATOR SERVICES===== RD/[employer] 02/06/17 11:51:00 CDT, AD 6 mod (02/13) =====48 Hr %PO INTAKE===== 02/06 1900 Evening Snack Percent 100 02/06 1843 Dinner Percent 100 02/06 0400 NPO Status NPO 02/06 0200 NPO Status NPO 02/06 0000 NPO Status NPO (no tube feeding information in past 48hrs) I/O Intake Output Balance 02/06/2017 7a-3p 334.17 2125.00 -1790.83 3p-11p 350.00 1000.00 -650.00 11p-7a 19.83 850.00 -830.17 Totals 704.00 3975.00 -3271.00 02/05/2017 7a-3p 1000.00 425.00 575.00 3p-11p 4049.33 350.00 3699.33 11p-7a 926.50 550.00 376.50 Totals 5975.83 1325.00 4650.83 Scheduled Meds (7): 02/06/17 9:00 QUEtiapine 25 mg PO BID [eMAR Schedule: (02/07/17) 09:00, 17:00] 02/06/17 9:00 aspirin (aspirin 81 mg tablet, enteric coated) 81 mg PO Daily [eMAR Schedule: (02/07/17) 09:00] [Future Dose: 02/08/17 09:00] 02/06/17 9:00 heparin 5,000 unit SUB-Q Q8H [Last Rescheduled Dt/Tm: 02/06/17 16:00:00 CDT] [eMAR Schedule: (02/07/17) 00:00, 08:00, 16:00] 02/06/17 18:17 insulin detemir (Levemir) 10 unit SUB-Q Q12H 0 ml/hr [Last Rescheduled Dt/Tm: 02/06/17 21:37:00 CDT] [eMAR Schedule: (02/07/17) 09:00] [Future Dose: 02/07/17 21:00] 02/06/17 21:00 pregabalin 150 mg PO Q12H [Last Rescheduled Dt/Tm: 02/07/17 9:00:00 CDT] [eMAR Schedule: (02/07/17) 09:00] [Future Dose: 02/07/17 21:00] 02/06/17 1:00 vancomycin 125 mg PO ABXQ6H [Last Rescheduled Dt/Tm: 02/06/17 7:00:00 CDT] [eMAR Schedule: (02/07/17) 01:00, 07:00, 13:00, 19:00] 02/06/17 9:00 venlafaxine 75 mg PO Daily [eMAR Schedule: (02/07/17) 09:00] [Future Dose: 02/08/17 09:00] Unscheduled Meds: None PRN Meds (12): 02/06/17 18:18 Dextrose 50% in Water IV (Dextrose 50% Syringe) 12.5 gm IVP PRN 02/06/17 18:18 Dextrose 50% in Water IV (Dextrose 50% Syringe) 25 gm IVP PRN 02/06/17 18:18 Insulin regular 2 unit SUB-Q TID-Before Meals 02/06/17 18:18 Insulin regular 4 unit SUB-Q TID-Before Meals 02/06/17 18:18 Insulin regular 6 unit SUB-Q TID-Before Meals 02/06/17 18:18 Insulin regular 8 unit SUB-Q TID-Before Meals 02/06/17 18:18 Insulin regular 10 unit SUB-Q TID-Before Meals 02/06/17 18:18 Insulin regular 1 unit SUB-Q Bedtime 02/06/17 18:18 Insulin regular 2 unit SUB-Q Bedtime 02/06/17 18:18 Insulin regular 3 unit SUB-Q Bedtime 02/06/17 18:18 Insulin regular 4 unit SUB-Q Bedtime 02/06/17 18:18 glucagon 1 mg IM PRN One Time Meds (2): 02/05/17 21:55 (Completed) calcium gluconate + sodium chloride 0.9% INJ 80 mL 2,000 mg IVPB ONCE 100 ml/hr 02/07/17 5:50 (Completed) sodium phosphate + sodium chloride 0.9% INJ 250 mL 30 mmol IVPB ONCE 65 ml/hr Continuous Infusions: None PE PHYSICAL EXAM GEN: In Bed, asleep/awake, looked comfortable/distressed HEENT: NCAT, PERRLA, Nose Midline, Moist Mucus Membranes CV: RRR, no murmur, regurge, gallops. S1/S2 present. PULM: CTAB, no rhonchi, wheezes, or crackles. ABD: Soft, NTND. Bowel Sounds Positive. NEURO: Gross motor and sensory intact. SKIN: No apparent new lesions. Skin turgor normal. MSC/SKL: Good ROM. No restricted movement. Good strength in BLE and BUE. LABS and DATA 24hr Labs 02/07 0811 Glucose POC 153 H 02/07 0304 Ca Ion WB 1.18 Ca Norm WB 1.11 Sodium Lvl 142 Potassium Lvl 4.8 Chloride Lvl 110 H CO2 25 AGAP 11.8 Glucose Lvl 183 H Creatinine Lvl 1.00 BUN 33 H B/C Ratio 33 H Total Protein 6.6 Albumin Lvl 2.7 L Globulin 3.9 A/G Ratio 0.7 Calcium Lvl 8.4 L ALT 14 AST 15 Alk Phos 120 Bili Total 0.3 eGFR 67 Phosphorus 2.1 L Magnesium Lvl 2.4 WBC 7.1 RBC 3.79 L Hgb 10.5 L Hct 31.1 L MCV 82.1 MCH 27.7 MCHC 33.8 RDW 16.2 H Platelet 116 L MPV 8.2 Segs 39.5 L Monocytes 4.2 Lymphocytes 52.9 H Eosinophils 3.0 Basophils 0.4 Segs-Bands # 2.8 Lymphocytes # 3.8 Monocytes # 0.3 Eosinophils # 0.2 02/06 2112 Glucose POC 229 H 02/06 1616 Glucose POC 165 H 02/06 1325 C difficile DNA Negative 02/06 1201 Glucose POC 279 H 02/06 1155 POC A Source ART POC A Temp 37.0 POC A pH 7.42 POC A PCO2 39 POC A PO2 85 POC A HCO3 25 POC A BE 1 POC A O2 Sat 97.0 POC A Hct 30.0 L POC A K 5.3 H POC A Na 134 L POC A Ca Ion 1.17 POC A LA 1.5 POC A Glu 239 H 02/06 1140 Glucose Lvl 206 H BUN 36 H Creatinine Lvl 1.05 Sodium Lvl 139 Potassium Lvl 5.2 H Chloride Lvl 108 CO2 25 AGAP 11.2 Calcium Lvl 7.6 L eGFR 63 Lactic Acid Lvl 1.9 Hgb 10.0 L Hct 29.6 L 02/06 0942 Fecal Leukocyte None Seen Occult Bld Stl Negative 02/06 0204 Hep Bs Ag Negative Hep B Core IgM Negative Hep A IgM Negative Hep C Ab Positive C Blood Collected: 02/05/2017 12:49 Verified by: ALYSA PAULINO - 02/06/2017 20:01 No Growth At 1 Day Collected: 02/05/2017 12:49 Verified by: ALYSA PAULINO - 02/06/2017 20:01 Collected: 02/05/2017 12:48 Verified by: ALYSA PAULINO - 02/06/2017 20:01 No Growth At 1 Day Collected: 02/05/2017 12:48 Verified by: MICROBIOLOGY, TRESSASERVER - 02/06/2017 20:01 X-Rays 02/05/2017 12:47 Chest 1view DX: Final RADIOLOGY REPORT EXAM: XR CHEST 1 VIEW DATE: 02/05/2017 12:47 PM CDT INDICATION: - fever COMPARISON: None TECHNIQUE: AP chest FINDINGS: Lines and tubes: Electrocardiogram leads and electrodes overlie portions of the chest. Lungs and pleura: No pulmonary or pleural based abnormality is identified. Heart and mediastinum: The heart size is normal for technique. The mediastinal contours are normal. Bones: No acute bony abnormality is identified. IMPRESSION: No acute cardiopulmonary abnormality. Radiologist: Jacqueline Sethi MD ASSESSMENT and PLAN Patient is 51 year old female ith DM, HTN, HLD, hepatitis C and EtOH cirrhosis, CAD (last cath 3-4 years prior), CHF (EF 45-50% from 01/12/2017) polysubstance abuse, bipolar disorder, RUE below elbow amputation for MRSA admitted to MICU with AVI and metabolic acidosis 2/2 profuse diarrhea with hypotension resolved s/p fluid replacement. #Dizziness/Disorientation/Altered Mental Status (RESOLVED) -Likely 2/2 Metabolic acidosis, hyperkalemia and hypovolemia v infectious etiology -Metabolic acidosis now resolved with most recent ABG 7.42/39/85, LA 2.9-->1.9 s/p bicart gtt per renal recs -now improving s/p 5L IVF tachycardia and hypotension have resolved - s/p 20mg IV lasix, calcium gluconate and albuterol - EKG without peaked T waves, WI interval 160 ms, Qtc 467 -K 7.6-->5.2-->4.8, Renal is following -CT Head shows no intracranial abnormality - Per infectious workup, s/p Vanc and Zosyn in the ED, Blood cultures NGTD -Patient c/o diarrhea with suspected C. Diff. C. Diff, fecal leukocytes negative. Ova and parasites pending -Currently on Vancomycin 125 mg Q6H Renal dosing, will discontinue #HFrEF/CAD -TTE (01/12/2017) showed EF of 45-50% -continue home dose ASA, Lasix 40 mg QD, Lisinopril 40 mg QD, Spironolactone 50 mg QD -HDS #Anemia with Hematochezia - 13.2 ->10.0 - Trend daily CBC - CT abdomen/pelvis wo contrast performed in ED showedno evidence of ileus or megacolon - no gross blood present on exam, will monitor for acute blood loss #Insulin Dependent Diabetes Mellitus Type 1 complicated by polyneuropathy - Hgb A1c 8.5 -Home medications include Insulin Detimir 10u BI, Lyrica 150 mg Q12 - Medium sliding scale before meals #Bipolar disorder -Continue home medication Venlafaxine 75 mg PO QD #S/P Recent Right Below Elbow amputation -due to MRSA infection on - X-ray in ED with soft tissue swelling without bony involvement - Ortho consulted from MICU, low concern for infection #Adrenal nodule - 1.9cm viewed on CT A/P, incidental finding - Will need follow up as outpatient Diet: Diabetic Diet with Boost Glucose DVT Prophylaxis: heparin 5,000 unit SUB-Q Q8H Dispo: All symptoms have resolved, likely discharge home today Tammy Ni MD [facility] Medicine PGY1 [id number] Addendum by Tere Flores MD on 02/07/2017 12:38 FP staff admit note Pt seen and examined and agree with the above History and physical reviewed labs and xray findings reviewed Pt with multiple co morbid conditions as listed above presented with dehydration and AVI which resolved with aggressive hydration o/e vs stable lungs clear cvs rrr a/p; AVI due to dehydration related to diarrhea due to ibs resolved one more bolus prior to dc low potassium diet cardiac status follow up as an outpatient diarrhea related to IBS ++ stressors c difficule negative op follow up with pcp care and plan discussed with the team and agree. Extracted from:Title: UT Renal Author: Casa Becker MD Date: 02/06/17 [id number] Full note dictated. Extracted from:Title: ICU Admission H&P * Author: Maurice Perez MD Date: 02/06/17 Impression and Plan Patient is 51 year old female ith DM, HTN, HLD, hepatitis C and EtOH cirrhosis, CAD (last cath 3-4 years prior), CHF (EF 45-50% from 01/12/2017) polysubstance abuse, bipolar disorder, RUE below elbow amputation for MRSA admitted to MICU with metabolic acidosis 2/2 profuse diarrhea with hypotension resolved s/p fluid replacement. Problem List -Diabetes mellitus -HTN -cirrhosis -CAD -CHF -bipolar disorder -metabolic acidosis -hyperkalemia -AVI Neuro/psych -AAOx4 *dizziness -CT brain w/o contrast pending -continue to monitor *Bipolar disorder -restarted home meds quetiapine 25 mg PO BID, venlafaxine 75 mg PO daily CV *hypovolemia -s/p 5 liters fluid -tachycardia, hypotension improved *CAD -aspirin 81 mg daily *CHF -EF 45-50% from 01/12/17 -bifasicular block present previous EKG Resp -stable on room air Renal/Electrolyte *metabolic acidosis -lactic acidosis resolved 2.9-->1.7 -patient started on bicarb drip 150 meq in SW 125 cc/hr -acidosis improved 7.39/33/120 most recent bicarb 19 -renal recommends continue bicarb drip until bicarb 20-22 then stop *AVI -s/p 5 L NS -Cr 1.75-->1.16; BUN 85-->51 -patient with 750 ml urine output as of today AM -will continue to monitor *hyperkalemia -s/p 20 mg IV lasix, albuterol, insulin, calcium gluconate in ED -improved from 7.6-->5.2 -EKG without peaked T waves, WI interval 160 ms, Qtc 467 ms -bifasicular block present, also present on EKG from 01/12/17 -renal thinks hyperkalemia likely to improve as patient voids -will evaluate again today AM GI/nutrition -diabetic diet -CT abdomen/pelvis wo contrast performed in ED -no evidence of ileus or megacolon Endo *diabetes mellitus -medium sliding scale insulin -hgb a1c 8.5 *adrenal nodule -1.[address] abd/pelvis -free cortisol level sent -TSH 1.360 ID -WBC 8.3-->7.1 -CRP <2.9 -blood culture x2 sent by ED pending -s/p IV vanc, zosyn in ED *diarrhea -patient with suspected C. dif, severe classification given AVI -c. dif study, fecal leukocytes, ova and parasites sent -patient started on PO vanc 125 mg q6 hrs -HIV, hepatitis panel pending hematology *hematochezia -fecal occult test sent -no gross blood present on exam -hgb 13.2-->9.9 -hgb q12 hr -continue to monitor for acute blood loss MSK -history of below elbow amputation after MRSA infection on , X-ray in ED with soft tissue swelling without bony involvement -ortho consulted in ED, do not think infection present -will continue to follow peripherally Lines/tubes/drains: 02/05/2017 16:00 Peripheral Lines: Antecubital Left 18 gauge Over the needle catheter 02/05/2017 14:55 Indwelling Urinary Catheter: Urethral 16 [place] Indwelling/Continuous 02/05/2017 12:40 Peripheral Lines: Antecubital Right 20 gauge Over the needle catheter ppx heparin 5000 units q12 hr dispo: pending improvement clinical status 02/07/2017 [facility] Extracted from:Title: Progress Note Author: Anjali Baca MD Date: 01/18/17 Assessment/Plan 51 y/o F with hx of polysubstance abuse, DM type 1, passive smoker, HTN, HLD, CAD, Hepatitis C and EtOH cirrhosis, bipolar disorder, who presented to an OSH with right hand pain, and non-healing wound which started with what she thought was an ant-bite (insect not seen. ? spider). She was treated with multiple antibiotics, including IV administration, with poor healing, and advised to undergo amputation, upon which she left the OSH AMA and presented to [facility] for second opinion. She was then transferred to [facility] for HLOC, and underwent I&D with placement of a wound vac in the right hand by ORS-hand on 01/12/17 followed by a below elbow amputation of the hand on 01/15/17. 1. Sepsis 2/2 abscess of right hand - s/p I&D and W[place] placement on 01/12/17 - s/p Below elbow amputation on 01/15/17 - clean margins, afebrile patient, with negative blood cultures - IV antibiotics discontinued yesterday - c/w minocycline and levofloxacin for 2 more weeks - the patient does not require inpatient ID consult at this time. Will refer for outpatient ID evaluation upon discharge, as appropriate. - outpatient f/u with surgeon upon discharge - needs removal of the right IJ tunnelled PICC line prior to discharge, likely tomorrow. - NWB RUE - denies pain. APMS signed off. C/w current multimodal pain control regimen 2. Bilateral lower extremity edema - 2/2 diastolic heart failure, and volume overload. - started on lasix 40mg PO BID with spironolactone 3. HTN - lisinopril dose increased recently - on hydralazine as needed 4. DM type 1 - Levemir dose increased recently. - FS>200 overnight, but better in AM - carbohydrate controlled diet - insulin slidig scale 5. Depression - no SI/HI - c/w seroquel and Effexor. 6. CAD (coronary artery disease) - aspirin to be started upon discharge - off statins due to unremarkable lipid panel, with underlying liver cirrhosis 7. Hx of cirrhosis - 2/2 Hep C s/p Interferon Rx. - liver function compensated Prophylaxis lovenox subq bilateral SCDs Disposition discharge to home in AM tomorrow, after removal of PICC line. Will leave indwelling for now, as no IV access in-case of emergency, per nursing staff. Extracted from:Title: Interventional Radiology Author: Lisa Benjamin NP Date: 01/13/17 Interventional Radiology Consultation Reason for consultation: central line placement in setting of necrotizing fascitis of the right hand Referring Physician: Dr. Baca History of Present Illness: Ms. 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 She is currently admitted for a 2 week history of right hand pain and swelling after an insect bite. She was diagnosed with right hand necrotizing fascitis and had an incision and drainage of the right hand with placement of a wound vac on 01/12/17. Interventional Radiology is now consulted for placement of a central line for IV antibiotic administration. Past Medical History: Hepatitis c MRSA (methicillin resistant staph aureus) culture positive Hepatitis C Hypertension Sleep apnea Irritable bowel syndrome (IBS) Herniated lumbar intervertebral disc Cirrhosis, alcoholic Past Surgical HIstory: Cholecystectomy Abdominal hysterectomy Cardiac catheterization, left heart Social History: She is from her current , but is also engaged to be . Alcohol Details: Past, Type Beer, Wine, Liquor. Frequency: Several times per day. Last use: 2010. Previous treatment: Outpatient. Tobacco Details: Use: Never smoker. Tobacco smoke exposure: None. Did the Patient Smoke Cigarettes Anytime During the Last 365 Days? No. Cessation Counseling Provided? No. Details: Use: Never smoker. Tobacco smoke exposure: None. Did the Patient Smoke Cigarettes Anytime During the Last 365 Days? No. Cessation Counseling Provided? No. Substance Abuse Details: Use: Current. Type: Marijuana. Family History: Mother: Pancreatic cancer Allergies Reviewed: Allergies: NKDA Current Medications: Medications (29) Active Scheduled Meds (10): 01/13/17 QUEtiapine (SEROquel) 50 mg PO QPM 01/12/17 ascorbic acid (Vitamin C) 500 mg PO Daily 01/13/17 bacitracin-polymyxin B topical (Polysporin topical ointment) 1 appl TOP TID 01/12/17 docusate 100 mg PO BID 01/12/17 insulin detemir 10 unit SUB-Q Q12H 0 ml/hr 01/12/17 lisinopril 10 mg PO Daily 01/12/17 piperacillin-tazobactam (Zosyn) 3.375 gm IVPB ABXQ8H 01/12/17 pregabalin (Lyrica) 150 mg PO BID 01/12/17 vancomycin 1 gm IVPB ABXQ8H 01/13/17 venlafaxine (Effexor XR) 75 mg PO Daily Unscheduled Meds: None PRN Meds (15): 01/12/17 Dextrose 50% in Water IV (Dextrose 50% Syringe) 12.5 gm IVP PRN 01/12/17 Dextrose 50% in Water IV (Dextrose 50% Syringe) 25 gm IVP PRN 01/12/17 acetaminophen-hydrocodone (acetaminophen-hydrocodone 325 mg-5 mg oral tablet) 1 tab PO Q4H 01/12/17 glucagon 1 mg IM PRN 01/12/17 insulin aspart 1 unit SUB-Q TID-Before Meals 01/12/17 insulin aspart 2 unit SUB-Q TID-Before Meals 01/12/17 insulin aspart 3 unit SUB-Q TID-Before Meals 01/12/17 insulin aspart 4 unit SUB-Q TID-Before Meals 01/12/17 insulin aspart 5 unit SUB-Q TID-Before Meals 01/12/17 insulin aspart 1 unit SUB-Q Bedtime 01/12/17 insulin aspart 2 unit SUB-Q Bedtime 01/12/17 insulin aspart 3 unit SUB-Q Bedtime 01/12/17 insulin aspart 4 unit SUB-Q Bedtime 01/12/17 morphine Sulfate 2 mg IVP Q4H 01/12/17 ondansetron 4 mg IVP Q6H One Time Meds (3): 01/12/17 (Completed) cloNIDine (cloNIDine 0.2 mg oral tablet) 0.2 mg PO ONCE (Completed) hydrALAZINE (hydrALAZINE (ANES)) IV ONCE (Completed) midazolam (midazolam (ANES)) IV ONCE Continuous Infusions (1): 01/12/17 Lactated Ringers 1,000 mL 1,000 mL 100 ml/hr Labs: 24hr Labs 01/13 1214 Glucose POC 181 H 01/13 0724 Glucose POC 174 H 01/13 0602 Glucose POC 223 H 01/13 0355 Glucose Lvl 274 H BUN 27 H Creatinine Lvl 0.78 Sodium Lvl 137 Potassium Lvl 5.2 H Chloride Lvl 107 CO2 21 L AGAP 14.2 Calcium Lvl 7.1 L eGFR 90 WBC 15.7 H RBC 3.76 L Hgb 10.2 L Hct 31.0 L MCV 82.3 MCH 27.2 MCHC 33.1 RDW 16.3 H Platelet 327 MPV 7.7 01/12 2131 Glucose POC 272 H INR: 1.23 High (01/11/17 22:09:27) Imaging Studies: no current chest xray is available Review of Systems: Constitutional Symptoms: no fever, + malaise Eyes: decreased visual acuity without her glasses Ears, Nose, Mouth, Throat: no dysphagia Cardiovascular: no chest pain, no palpitations Respiratory: occasional cough, no shortness of breath Gastorintenstinal: no nausea, vomiting, no abdominal pain Genitourinary: no voiding difficulties Musculoskeletal: + right hand pain Integumentary: no rashes, + burned skin on the abdomen Neurological: + weakness Psychiatry:+ bipolar depression Endocrine: + diabetes Physical Examination: Vitals Tmp(F) Tmp(C) Ttype BP MAP Pulse RR SpO2 FIO2 ETCO2 01/13 12:19 97.5 36.39 oral 130/85 --- 74 18 95 --- --- 01/13 08:26 98.5 36.94 oral 135/84 --- 75 18 94 --- --- 01/13 04:01 97.9 36.61 oral 143/82 --- 77 18 93 --- --- 01/12 23:36 97.8 36.56 oral 138/83 --- 88 18 96 --- --- 01/12 20:11 97.7 36.50 oral 140/85 --- 74 18 92 --- --- 24 Hr Tmax: 98.5F (36.94c) at 01/13 08:26 Vital Signs are the last 5 in the past 48 hours. 24 Hr Tmin: 97.5F (36.39c) at 01/13 12:19 Weights are the last 5 in 60 days, plus initial. Date Wt(kg) Wt(lb) Ht(cm) Ht(in) Method BMI BSA 01/12 (initial) 77.27 170.00 Estimated 29.2 1.87 01/12 162.56 64.00 Stated 24 Hr Point of Care Glucoses 01/13 1214 Glucose POC 181 H 01/13 0724 Glucose POC 174 H 01/13 0602 Glucose POC 223 H 01/12 2131 Glucose POC 272 H Most Recent Scores: 01/13/17 Pain Intensity NRS (0-10) 9 01/12/17 Derek Score 18 01/12/17 Jackson Coma Score 15 01/12/17 Henson [place] Fall Score 9 Lines, Tubes, and Drains: 01/13/2017 11:50 Peripheral Lines: Forearm Left 20 gauge Over the needle catheter Surgical Procedures: (no date) RIGHT HAND AMPUTATION, POSSIBLE IRRIGATION AND DEBRIDEMENT WITH WOUND VAC EXCHANGE [id number] (primary surgeon unspecified) (no date) (primary surgeon unspecified) (no date) [id number] (primary surgeon unspecified) 01/12/17 11:37 IRRIGATION AND DEBRIDEMENT WITH STERILE WOUND VAC DRESSING TO THE RIGHT HAND [id number] Primary Surgeon: Jose York DO (Service: ORT) General: Active, alert, well developed female who is out of bed in a chair Head: Normocephalic, atraumatic Eyes: sclera is clear Hearing: normal to spoken voice Speech: Adequate vocabulary, no impediments Nose: [place] nasal turbinates, septum midline, no drainage or deformities Mouth: moist mucous membranes, dentition is poor Neck: Supple,no JVD Resp: Clear to auscultation bilaterally, without crackles or wheezes, good air movement, no retractions CV: RRR, without murmurs, rubs or gallops ABD: large, soft, non tender with + BS present x 4 quads Extremities: right hand with intact dressing and wound vac. There is 2+ edema present of all extremities Neuro: She is alert and oriented and follows commands. Skin: with good turgor and no rashes. There is some generalized erythema of the abdomen. Impression: 1. necrotizing fascitis of the right hand post surgical incision and drainage with wound vac placement on 01/12/17 2. DM 3. leukocytosis 4. Hepatitis C 5. 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 Benefits, risks, and alternatives were discussed with patient by Dr. Emil Yeager and myself. She verbalizes understanding and consents to proceed. She will remain NPO for this later today. THANK YOU FOR CONSULTING INTERVENTIONAL RADIOLOGY. IF YOU HAVE ANY QUESTIONS, PLEASE CONTACT [phone]. Extracted from:Title: History and Physical Author: Vannesa Odom MD Date: 01/12/17 Assessment/Plan 51-year-old female patientwith a right hand infection for last 2 weekswas being treated at a different facility and signed out AGAINST MEDICAL ADVICE[facility] the patient was in disagreement with hermedical care at the outside hospital hand cellulitis ,severetissue infection possible osteomyelitis Coronary artery disease Medical noncompliance Accelerated hypertension Hepatitis C Uncontrolled diabetes Moderate malnutrition Anemia of chronic disease Leukocytosis Bipolar disorder Alcoholic cirrhosis History of MRSA infections hand cellulitis ,severetissue infection IV antibiotics,IV fluids, follow surgical recommendations, due to severity of infectionpossible amputation has been suggested to the patient by surgical team Based Naima&D and debridement in the OR possible osteomyelitis Continue IV antibiotics continuetreatments as above The patient has osteomyelitis she might need extended antibiotic therapy coronary artery disease Patient is noncompliant with her medications Pending cardiac evaluation Consult with cardiology medical noncompliance Counseling Patient mentioned that financial reasons behind her noncompliance accelerated hypertension Resume home medications 1 dose clonidine hepatitis C Outpatient follow-up Patient still noncompliant uncontrolled diabetes Noncompliance with medications Sliding scale insulin Monitor the glucose with Accu-Cheks before meals and nightly moderate malnutrition Add supplements Consult nutrition anemia of chronic disease monitor the hemoglobin Transfuse if hemoglobin less than 7 Repeat labs in a.m. Monitor vital signs Leukocytosis Due to the severe infection empiric broad spectrum antibiotics Likely MRSA due to the patient history bipolar disorder With recent suicide ideation,patient is very frustrated with her currentmedical condition,will add a sitter for now Alcoholic cirrhosis Counseling History of MRSA infections Contact isolation Plan of care discussed with the patient, voiced understanding to the discussion and agreed to the plan of care. Please call with any concerns and or questions . Vannesa Odom M.D. Internal Medicine- Hospitalist Prophylaxis Holding heparin prophylaxis untilsurgical intervention 01/19/2017 [facility] Plan of Care Plan of Care Date Source Discharge Date 11/06/18 11:06pm Disposition HOME, SELF-CARE Condition at Discharge Stable Instructions/Education Provided Diabetes and Diet Diabetic Nephropathy Diabetic Retinopathy Forms Provided Work/School Excuse Prescriptions See Medication Section Referrals CLARISA BOWMAN MD Address: [address] [place] [id number] Additional Instructions/Education 1. Please go to your appt 11/06/2018 [facility] Social History Social History Date Source Social History Problem Response Recorded Date/Time Onset Date Status Hx Psychiatric Problems No 08/06/2017 10:36pm Not Applicable Not Applicable Hx Eating Disorder No 05/04/2017 1:35pm Not Applicable Not Applicable Hx Substance Use Disorder No 05/04/2017 1:35pm Not Applicable Not Applicable Hx Depression Yes 08/06/2017 10:36pm Not Applicable Not Applicable Hx Alcohol Use No 05/04/2017 1:35pm Not Applicable Not Applicable Hx Substance Use Treatment Y - NARCOTICS, HISTORY OF DRUG USE 05/04/2017 1:35pm Not Applicable Not Applicable Hx Physical Abuse No 05/04/2017 1:35pm Not Applicable Not Applicable Smoking Status Start Date Stop Date Never Smoker 11/06/2018 [facility] Social History TypeResponse Substance Abuse Use: Current. Type: Marijuana. IV drug use: No. Drug use interferes with work/home: No. Ready to change: No. Household substance abuse concerns: No. Cessation Education Provided: Yes. Alcohol Past, Type Beer, Wine, Liquor. Frequency: Several times per day. Last use: 2010. Previous treatment: Outpatient. Smoking Status Never smoker; Exposure to Tobacco Smoke None; Cigarette Smoking Last 365 Days No; Reg Smoking Cessation Counseling No entered on: 02/23/19 07/31/2018 [facility] TypeResponse Substance Abuse Use: Current. Type: Marijuana. IV drug use: No. Drug use interferes with work/home: No. Ready to change: No. Household substance abuse concerns: No. Cessation Education Provided: Yes. Alcohol Past, Type Beer, Wine, Liquor. Frequency: Several times per day. Last use: 2010. Previous treatment: Outpatient. Smoking Status Never smoker; Exposure to Tobacco Smoke None; Cigarette Smoking Last 365 Days No; Reg Smoking Cessation Counseling No entered on: 02/23/19 07/31/2018 [facility] TypeResponse Substance Abuse Use: Current. Type: Marijuana. Alcohol Past, Type Beer, Wine, Liquor. Frequency: Several times per day. Last use: 2010. Previous treatment: Outpatient. Smoking Status Unknown if ever smoked; Exposure to Tobacco Smoke None; Cigarette Smoking Last 365 Days No; Reg Smoking Cessation Counseling No 01/12/2017 [facility] Family History No Data Provided for This Section Advance Directives Order Name Results Value Date Source Advance Directives Advance Directives Directive Response Recorded Date/Time Does the patient have an advance directive? No 08/06/17 10:36pm If yes, is advance directive on file with [facility]? No 08/06/17 10:36pm If not on file with [facility] will patient provide a copy? No 08/06/17 10:36pm Do you have a Directive to Physician? No 11/06/18 6:42pm Do you have a Medical Power of Trimmer Machine? No 11/06/18 6:42pm Do you have an out of hospital Do Not Resuscitate Order? No 11/06/18 6:42pm Do you have any special needs we should be aware of? No 11/06/18 6:42pm Do you have a support person here with you today? Yes 11/06/18 6:42pm Did patient receive Notice of Privacy Practices? Yes 11/06/18 6:42pm Did patient receive patient rights and responsibilities? Yes 11/06/18 6:42pm 11/06/2018 [facility] Functional Status No Data Provided for This Section
--- OUTSIDE RECORDS SUMMARY | 2019-05-04 10:39 | XMS REPORT | Summary of Care ---
Author Author [facility] Organization [facility] Address Unknown Phone Unavailable Encounter HQ Hillary(ARIC) [id number] Date(s): 01/12/17 - 01/19/17 [facility] [address] [facility] [employer] provided by [facility] [place] [address]- Discharge Disposition: Home or Self Care Attending Physician: Rajni Welch MD Admitting Physician: Anjali Baca MD Referring Physician: Gordo Faria MD Vital Signs 1 2 3 Most recent to oldest [Reference Range]: 162.56 cm (01/12/17 4:58 AM) 162.56 cm (01/12/17 4:23 AM) 162.56 cm (01/12/17 4:21 AM) Height 98.8 DegF (01/19/17 3:32 PM) 97.9 DegF (01/19/17 12:06 PM) 98.8 DegF (01/19/17 8:00 AM) Temperature Oral [96.4-99.1 DegF] 137/85 mmHg (01/19/17 3:32 PM) 140/85 mmHg (01/19/17 12:06 PM) 175/90 mmHg *HI* (01/19/17 8:00 AM) Blood Pressure [90-140/60-90 mmHg] 20 BRMIN (01/19/17 3:32 PM) 18 BRMIN (01/19/17 12:06 PM) 20 BRMIN (01/19/17 8:00 AM) Respiratory Rate [14-20 BRMIN] 98 bpm (01/19/17 3:32 PM) 98 bpm (01/19/17 12:06 PM) 96 bpm (01/19/17 8:00 AM) Peripheral Pulse Rate [60-100 bpm] 77.273 kg (01/12/17 4:58 AM) 77.273 kg (01/12/17 4:23 AM) 77.273 kg (01/12/17 4:21 AM) Weight 29.24 m2 (01/12/17 4:23 AM) 29.24 m2 (01/12/17 4:21 AM) Body Mass Index Problem List Condition Effective Dates Status Health Status Informant Cirrhosis, Resolved alcoholic(Confirmed) CAD (coronary artery Active disease)(Confirmed) Irritable bowel Resolved syndrome (IBS)(Confirmed) MRSA (methicillin Resolved resistant staph aureus) culture positive(Confirmed) Enterobacter(Confirm 05/23/15 Active ed)1, 2 Hx of Active cirrhosis(Confirmed) Hepatitis Resolved c(Confirmed) Hypertension(Confirm Resolved ed) Depression(Confirmed Active ) MRSA(Confirmed)3, 4 05/23/15 Active Herniated lumbar Resolved intervertebral disc(Confirmed) Sleep Resolved apnea(Confirmed) 1Breast abscess, E. aerogenes, 05/23/2015 2Problem added by Discern Expert. 3Nares, 05/23/2015 4Problem added by Discern Expert. Allergies, Adverse Reactions, Alerts Substance Reaction Severity Status NKDA Active Medications acetaminophen (ANES) Route: IV, Drug form: INJ, ONCE, Stop date: 01/15/17 13:34:00 CDT Start Date: 01/15/17 Stop Date: 01/15/17 Status: Completed acetaminophen-hydrocodone 325 mg-5 mg oral tablet 1 tab, Route: PO, Drug Form: TAB, Dosing Weight 77.273, kg, Q4H, PRN Pain Score 4-6, Start date: 01/12/17 5:06:00 CDT, Duration: 30 day, Stop date: 02/11/17 5:0 5:00 CDT Notes: (Same as: [place] 325/5) Do not exceed 4gm/day of acetaminophen. Start Date: 01/12/17 Stop Date: 01/19/17 Status: Discontinued Aldactone 100 mg, 2 tab, Route: PO, Drug form: TAB, Daily, Dosing Weight 77.273, kg, Prior ity: NOW, Start date: 01/17/17 10:00:00 CDT, Duration: 30 day, Stop date: 9:00:00 CDT Notes: (Same As: Aldactone) Start Date: 01/17/17 Stop Date: 01/19/17 Status: Discontinued ANES flumazenil 0.2 mg, 2 mL, Route: IVP, Drug form: INJ, PRN, Dosing Weight 77.273, kg, PRN Sander zodiazepine Reversal, Initial dose, Start date: 01/15/17 13:40:00 CDT, Duration: 1 day, Stop date: 01/16/17 13:39:00 CDT Notes: (Same as: Romazicon) Start Date: 01/15/17 Stop Date: 01/15/17 Status: Discontinued ANES flumazenil 0.2 mg, 2 mL, Route: IVP, Drug form: INJ, PRN, Dosing Weight 77.273, kg, PRN Sander zodiazepine Reversal, Initial dose, Start date: 01/12/17 11:45:00 CDT, Duration: 30 day, Stop date: 02/11/17 11:44:00 CDT Notes: (Same as: Romazicon) Start Date: 01/12/17 Stop Date: 01/12/17 Status: Discontinued ANES hydrALAZINE 10 mg, 0.5 mL, Route: IVP, Drug form: INJ, Q20Min, Dosing Weight 77.273, kg, PRN Elevated BP, Start date: 01/15/17 13:40:00 CDT, Duration: 2 doses or times, Stop date: Limited # of times Notes: (Same as: Apresoline)Push over 5 minutes Start Date: 01/15/17 Stop Date: 01/15/17 Status: Discontinued ANES hydrALAZINE 10 mg, 0.5 mL, Route: IVP, Drug form: INJ, Q20Min, Dosing Weight 77.273, kg, PRN Elevated BP, Start date: 01/12/17 11:45:00 CDT, Duration: 2 doses or times, Stop date: 01/13/17 0:00:00 CDT Notes: (Same as: Apresoline)Push over 5 minutes Start Date: 01/12/17 Stop Date: 01/12/17 Status: Discontinued ANES HYDROmorphone 0.5 mg, 0.25 mL, Route: IVP, Drug form: INJ, Q5Min, Dosing Weight 77.273, kg, OK N Pain Score 7-10, Start date: 01/15/17 13:40:00 CDT, Duration: 4 doses or times , Stop date: Limited # of times Notes: (Same as: Dilaudid) Start Date: 01/15/17 Stop Date: 01/15/17 Status: Discontinued ANES labetalol 10 mg, 2 mL, Route: IVP, Drug form: INJ, Q5Min, Dosing Weight 77.273, kg, PRN El evated BP, Start date: 01/15/17 13:40:00 CDT, Duration: 5 doses or times, Stop d ate: Limited # of times Start Date: 01/15/17 Stop Date: 01/15/17 Status: Discontinued ANES metoprolol 1 mg, 1 mL, Route: IVP, Drug form: INJ, Q5Min, Dosing Weight 77.273, kg, PRN Oth er -See Comment, Start date: 01/15/17 13:40:00 CDT, Duration: 5 doses or times, Stop date: Limited # of times Notes: (Same as: Lopressor)Push over 2 minutes Start Date: 01/15/17 Stop Date: 01/15/17 Status: Discontinued ANES naloxone 0.4 mg, 1 mL, Route: IVP, Drug form: INJ, Q2MIN, Dosing Weight 77.273, kg, PRN N arcotic Reversal, Start date: 01/15/17 13:40:00 CDT, Duration: 8 doses or times, Stop date: Limited # of times Notes: (Same as: Narcan) Start Date: 01/15/17 Stop Date: 01/15/17 Status: Discontinued ANES naloxone 0.4 mg, 1 mL, Route: IVP, Drug form: INJ, Q2MIN, Dosing Weight 77.273, kg, PRN N arcotic Reversal, Start date: 01/12/17 11:45:00 CDT, Duration: 8 doses or times, Stop date: 01/13/17 0:00:00 CDT Notes: Same as Narcan Start Date: 01/12/17 Stop Date: 01/12/17 Status: Discontinued ANES ondansetron 4 mg, 2 mL, Route: IVP, Drug form: INJ, ONCE, Dosing Weight 77.273, kg, PRN Naus ea & Vomiting, Start date: 01/15/17 13:40:00 CDT Notes: (Same as: Zofran) MEDICATION WASTE Product Size: 4 mgProduct Was mirna: ___ mg Start Date: 01/15/17 Stop Date: 01/15/17 Status: Discontinued ANES ondansetron 4 mg, 2 mL, Route: IVP, Drug form: INJ, ONCE, Dosing Weight 77.273, kg, PRN Naus ea & Vomiting, Start date: 01/12/17 11:45:00 CDT Notes: (Same as: Zofran) MEDICATION WASTE Product Size: 4 mgProduct Was mirna: ___ mg Start Date: 01/12/17 Stop Date: 01/12/17 Status: Discontinued ANES oxyCODONE 5 mg, 1 tab, Route: PO, Drug form: TAB, Q4H, Dosing Weight 77.273, kg, PRN Pain Score 4-6, Start date: 01/12/17 11:45:00 CDT, Duration: 30 day, Stop date: 02/11 11:44:00 CDT Notes: (Same as: Roxicodone) Start Date: 01/12/17 Stop Date: 01/12/17 Status: Discontinued cefepime 1 gm, Route: IVPB, Drug form: INJ, ONCE, Dosing Weight 70.455, kg, Priority: STA T, Start date: 01/12/17 2:32:00 CDT, Stop date: 01/12/17 2:32:00 CDT Notes: (Same As: Maxipime) MEDICATION WASTE Product Size: 1000 mgProduc t Wasted: ___ mg Start Date: 01/12/17 Stop Date: 01/12/17 Status: Completed cloNIDine 0.2 mg oral tablet 0.2 mg, 1 tab, Route: PO, Drug form: TAB, ONCE, Dosing Weight 77.273, kg, Start date: 01/12/17 6:04:00 CDT, Stop date: 01/12/17 6:04:00 CDT Notes: (Same As: Catapres) Start Date: 01/12/17 Stop Date: 01/12/17 Status: Completed Colace 100 mg oral capsule 100 mg, 1 cap, Route: PO, Drug form: CAP, BID, Dosing Weight 77.273, kg, Start d ate: 01/12/17 9:00:00 CDT, Duration: 30 day, Stop date: 02/10/17 17:00:00 CDT Start Date: 01/12/17 Stop Date: 01/12/17 Status: Deleted Dextrose 50% Syringe 12.5 gm, 25 mL, Route: IVP, Drug Form: INJ, Dosing Weight 77.273, kg, PRN, PRN B lood Glucose Results, Start date: 01/12/17 6:46:00 CDT, Duration: 30 day, Stop d ate: 02/11/17 6:45:00 CDT Start Date: 01/12/17 Stop Date: 01/12/17 Status: Discontinued Dextrose 50% Syringe 25 gm, 50 mL, Route: IVP, Drug Form: INJ, Dosing Weight 77.273, kg, PRN, PRN Blo od Glucose Results, Start date: 01/12/17 6:46:00 CDT, Duration: 30 day, Stop megan e: 02/11/17 6:45:00 CDT Start Date: 01/12/17 Stop Date: 01/12/17 Status: Discontinued Dextrose 50% Syringe 25 gm, 50 mL, Route: IVP, Drug Form: INJ, Dosing Weight 77.273, kg, PRN, PRN Blo od Glucose Results, Start date: 01/12/17 10:06:00 CDT, Duration: 30 day, Stop da te: 02/11/17 10:05:00 CDT Start Date: 01/12/17 Stop Date: 01/19/17 Status: Discontinued Dextrose 50% Syringe 12.5 gm, 25 mL, Route: IVP, Drug Form: INJ, Dosing Weight 77.273, kg, PRN, PRN B lood Glucose Results, Start date: 01/12/17 10:06:00 CDT, Duration: 30 day, Stop date: 02/11/17 10:05:00 CDT Start Date: 01/12/17 Stop Date: 01/19/17 Status: Discontinued docusate 100 mg, 1 cap, Route: PO, Drug form: CAP, BID, Dosing Weight 77.273, kg, Start d ate: 01/12/17 9:00:00 CDT, Duration: 30 day, Stop date: 02/10/17 17:00:00 CDT Notes: (Same as: Colace) (Do Not Crush) Start Date: 01/12/17 Stop Date: 01/19/17 Status: Discontinued Effexor XR 75 mg, 1 cap, Route: PO, Drug form: ERCAP, Daily, Dosing Weight 77.273, kg, Star t date: 01/13/17 9:00:00 CDT, Duration: 30 day, Stop date: 02/11/17 9:00:00 CDT Notes: Do not open, crush, or chew.(Same As: Effexor XR) Start Date: 01/13/17 Stop Date: 01/19/17 Status: Discontinued Effexor XR 37.5 mg oral capsule, extended release 75 mg=2 cap, PO, Daily, 0 Refill(s) Start Date: 01/12/17 Stop Date: 01/19/17 Status: Discontinued enoxaparin 30 mg, 0.3 mL, Route: SUB-Q, Drug form: INJ, [id number], Dosing Weight 77.273, kg, Start date: 01/15/17 11:00:00 CDT, Duration: 30 day, Stop date: 02/14/17 6:00:00 CDT Notes: (Same as: Lovenox) Start Date: 01/15/17 Stop Date: 01/19/17 Status: Discontinued fentaNYL 50 microgram, Route: IV, ONCE, Dosing Weight 77.273, kg, Start date: 01/13/17 18 :25:00 CDT, Stop date: 01/13/17 18:25:00 CDT Start Date: 01/13/17 Stop Date: 01/13/17 Status: Completed fentaNYL (ANES) Route: IV, Drug form: INJ, ONCE, Stop date: 01/15/17 13:39:00 CDT Start Date: 01/15/17 Stop Date: 01/15/17 Status: Completed furosemide 40 mg oral tablet 40 mg=1 tab, PO, Daily, # 30 tab, 0 Refill(s) Start Date: 01/19/17 Status: Ordered glucagon 1 mg, Route: IM, Drug form: PDR/INJ, PRN, Dosing Weight 77.273, kg, PRN Blood Gl ucose Results, Start date: 01/12/17 6:46:00 CDT, Duration: 30 day, Stop date: 6:45:00 CDT Start Date: 01/12/17 Stop Date: 01/12/17 Status: Discontinued glucagon 1 mg, Route: IM, Drug form: PDR/INJ, PRN, Dosing Weight 77.273, kg, PRN Blood Gl ucose Results, Start date: 01/12/17 10:06:00 CDT, Duration: 30 day, Stop date: 0 02/11/17 10:05:00 CDT Start Date: 01/12/17 Stop Date: 01/19/17 Status: Discontinued hydrALAZINE 50 mg, 1 tab, Route: PO, Drug form: TAB, TID, Dosing Weight 77.273, kg, Start da te: 01/17/17 17:00:00 CDT, Duration: 30 day, Stop date: 02/16/17 13:00:00 CDT Notes: (Same as: Apresoline) May interfere w/enteral feedings Take With Food Start Date: 01/17/17 Stop Date: 01/19/17 Status: Discontinued hydrALAZINE 10 mg, 0.5 mL, Route: IV, Drug form: INJ, Q6H, Dosing Weight 77.273, kg, PRN Hyp ertension, Start date: 01/16/17 12:07:00 CDT, Duration: 30 day, Stop date: 02/15 12:06:00 CDT Notes: (Same as: Apresoline)Push over 5 minutes Start Date: 01/16/17 Stop Date: 01/19/17 Status: Discontinued hydrALAZINE (ANES) Route: IV, Drug form: INJ, ONCE, Stop date: 01/12/17 12:28:00 CDT Start Date: 01/12/17 Stop Date: 01/12/17 Status: Completed insulin aspart 10 unit, 0.1 mL, Route: SUB-Q, Drug form: SOLN, TID-Before Meals, Dosing Weight 77.273, kg, PRN Blood Glucose Results, Start date: 01/12/17 6:46:00 CDT, Duratio n: 30 day, Stop date: 02/11/17 6:45:00 CDT Notes: Roll in palms of hands gently; Do not shake vigorously. (Same as: NovoLO G)"single patient use only"WASTE: F/P - Black; E - Municipal Trash Bin Stable f or 28 days at room temperature.Expires in days from Date Start Date: 01/12/17 Stop Date: 01/12/17 Status: Discontinued insulin aspart 2 unit, 0.02 mL, Route: SUB-Q, Drug form: SOLN, TID-Before Meals, Dosing Weight 77.273, kg, PRN Blood Glucose Results, Start date: 01/12/17 6:46:00 CDT, Duratio n: 30 day, Stop date: 02/11/17 6:45:00 CDT Notes: Roll in palms of hands gently; Do not shake vigorously. (Same as: NovoLO G)"single patient use only"WASTE: F/P - Black; E - Municipal Trash Bin Stable f or 28 days at room temperature.Expires in days from Date Start Date: 01/12/17 Stop Date: 01/12/17 Status: Discontinued insulin aspart 4 unit, 0.04 mL, Route: SUB-Q, Drug form: SOLN, TID-Before Meals, Dosing Weight 77.273, kg, PRN Blood Glucose Results, Start date: 01/12/17 6:46:00 CDT, Duratio n: 30 day, Stop date: 02/11/17 6:45:00 CDT Notes: Roll in palms of hands gently; Do not shake vigorously. (Same as: NovoLO G)"single patient use only"WASTE: F/P - Black; E - Municipal Trash Bin Stable f or 28 days at room temperature.Expires in days from Date Start Date: 01/12/17 Stop Date: 01/12/17 Status: Discontinued insulin aspart 6 unit, 0.06 mL, Route: SUB-Q, Drug form: SOLN, TID-Before Meals, Dosing Weight 77.273, kg, PRN Blood Glucose Results, Start date: 01/12/17 6:46:00 CDT, Duratio n: 30 day, Stop date: 02/11/17 6:45:00 CDT Notes: Roll in palms of hands gently; Do not shake vigorously. (Same as: Rigo Young)"single patient use only"WASTE: F/P - Black; E - Municipal Trash Bin Stable f or 28 days at room temperature.Expires in days from Date Start Date: 01/12/17 Stop Date: 01/12/17 Status: Discontinued insulin aspart 8 unit, 0.08 mL, Route: SUB-Q, Drug form: SOLN, TID-Before Meals, Dosing Weight 77.273, kg, PRN Blood Glucose Results, Start date: 01/12/17 6:46:00 CDT, Duratio n: 30 day, Stop date: 02/11/17 6:45:00 CDT Notes: Roll in palms of hands gently; Do not shake vigorously. (Same as: Rigo Young)"single patient use only"WASTE: F/P - Black; E - Municipal Trash Bin Stable f or 28 days at room temperature.Expires in days from Date Start Date: 01/12/17 Stop Date: 01/12/17 Status: Discontinued insulin aspart 1 unit, 0.01 mL, Route: SUB-Q, Drug form: SOLN, Bedtime, Dosing Weight 77.273, k g, PRN Blood Glucose Results, Start date: 01/12/17 10:06:00 CDT, Duration: 30 da y, Stop date: 02/11/17 10:05:00 CDT Notes: Roll in palms of hands gently; Do not shake vigorously. (Same as: Rigo Young)"single patient use only"WASTE: F/P - Black; E - Municipal Trash Bin Stable f or 28 days at room temperature.Expires in days from Date Start Date: 01/12/17 Stop Date: 01/19/17 Status: Discontinued insulin aspart 4 unit, 0.04 mL, Route: SUB-Q, Drug form: SOLN, Bedtime, Dosing Weight 77.273, k g, PRN Blood Glucose Results, Start date: 01/12/17 10:06:00 CDT, Duration: 30 da y, Stop date: 02/11/17 10:05:00 CDT Notes: Roll in palms of hands gently; Do not shake vigorously. (Same as: Rigo Young)"single patient use only"WASTE: F/P - Black; E - Municipal Trash Bin Stable f or 28 days at room temperature.Expires in days from Date Start Date: 01/12/17 Stop Date: 01/19/17 Status: Discontinued insulin aspart 2 unit, 0.02 mL, Route: SUB-Q, Drug form: SOLN, Bedtime, Dosing Weight 77.273, k g, PRN Blood Glucose Results, Start date: 01/12/17 10:06:00 CDT, Duration: 30 da y, Stop date: 02/11/17 10:05:00 CDT Notes: Roll in palms of hands gently; Do not shake vigorously. (Same as: NovoTRACI Young)"single patient use only"WASTE: F/P - Black; E - Municipal Trash Bin Stable f or 28 days at room temperature.Expires in days from Date Start Date: 01/12/17 Stop Date: 01/19/17 Status: Discontinued insulin aspart 3 unit, 0.03 mL, Route: SUB-Q, Drug form: SOLN, Bedtime, Dosing Weight 77.273, k g, PRN Blood Glucose Results, Start date: 01/12/17 10:06:00 CDT, Duration: 30 da y, Stop date: 02/11/17 10:05:00 CDT Notes: Roll in palms of hands gently; Do not shake vigorously. (Same as: NovoTRACI Young)"single patient use only"WASTE: F/P - Black; E - Municipal Trash Bin Stable f or 28 days at room temperature.Expires in days from Date Start Date: 01/12/17 Stop Date: 01/19/17 Status: Discontinued insulin aspart 1 unit, 0.01 mL, Route: SUB-Q, Drug form: SOLN, TID-Before Meals, Dosing Weight 77.273, kg, PRN Blood Glucose Results, Start date: 01/12/17 10:06:00 CDT, Durati on: 30 day, Stop date: 02/11/17 10:05:00 CDT Notes: Roll in palms of hands gently; Do not shake vigorously. (Same as: Rigo Young)"single patient use only"WASTE: F/P - Black; E - Municipal Trash Bin Stable f or 28 days at room temperature.Expires in days from Date Start Date: 01/12/17 Stop Date: 01/19/17 Status: Discontinued insulin aspart 5 unit, 0.05 mL, Route: SUB-Q, Drug form: SOLN, TID-Before Meals, Dosing Weight 77.273, kg, PRN Blood Glucose Results, Start date: 01/12/17 10:06:00 CDT, Durati on: 30 day, Stop date: 02/11/17 10:05:00 CDT Notes: Roll in palms of hands gently; Do not shake vigorously. (Same as: Rigo Young)"single patient use only"WASTE: F/P - Black; E - Municipal Trash Bin Stable f or 28 days at room temperature.Expires in days from Date Start Date: 01/12/17 Stop Date: 01/19/17 Status: Discontinued insulin aspart 4 unit, 0.04 mL, Route: SUB-Q, Drug form: SOLN, TID-Before Meals, Dosing Weight 77.273, kg, PRN Blood Glucose Results, Start date: 01/12/17 10:06:00 CDT, Durati on: 30 day, Stop date: 02/11/17 10:05:00 CDT Notes: Roll in palms of hands gently; Do not shake vigorously. (Same as: Rigo Young)"single patient use only"WASTE: F/P - Black; E - Municipal Trash Bin Stable f or 28 days at room temperature.Expires in days from Date Start Date: 01/12/17 Stop Date: 01/19/17 Status: Discontinued insulin aspart 3 unit, 0.03 mL, Route: SUB-Q, Drug form: SOLN, TID-Before Meals, Dosing Weight 77.273, kg, PRN Blood Glucose Results, Start date: 01/12/17 10:06:00 CDT, Durati on: 30 day, Stop date: 02/11/17 10:05:00 CDT Notes: Roll in palms of hands gently; Do not shake vigorously. (Same as: Rigo Young)"single patient use only"WASTE: F/P - Black; E - Municipal Trash Bin Stable f or 28 days at room temperature.Expires in days from Date Start Date: 01/12/17 Stop Date: 01/19/17 Status: Discontinued insulin aspart 2 unit, 0.02 mL, Route: SUB-Q, Drug form: SOLN, TID-Before Meals, Dosing Weight 77.273, kg, PRN Blood Glucose Results, Start date: 01/12/17 10:06:00 CDT, Durati on: 30 day, Stop date: 02/11/17 10:05:00 CDT Notes: Roll in palms of hands gently; Do not shake vigorously. (Same as: Rigo Young)"single patient use only"WASTE: F/P - Black; E - Municipal Trash Bin Stable f or 28 days at room temperature.Expires in days from Date Start Date: 01/12/17 Stop Date: 01/19/17 Status: Discontinued insulin detemir 10 unit, 0.1 mL, Route: SUB-Q, Drug form: SOLN, BID-Before Meals, Dosing Weight 77.273, kg, Start date: 01/16/17 16:30:00 CDT, Duration: 30 day, Stop date: 01/30 03/17 7:30:00 CDT Notes: Same as Art not hold insulin without contacting prescriberWASTE: F/ P - Black; E - Municipal Trash Bin "single patient use only" Start Date: 01/16/17 Stop Date: 01/19/17 Status: Discontinued insulin detemir 7 unit, 0.07 mL, Route: SUB-Q, Drug form: SOLN, BID-Before Meals, Dosing Weight 77.273, kg, Start date: 01/14/17 16:30:00 CDT, Duration: 30 day, Stop date: 01/30 01/15 7:30:00 CDT Notes: Same as LevemirDo not hold insulin without contacting prescriberWASTE: F/ P - Black; E - Municipal Trash Bin "single patient use only" Start Date: 01/14/17 Stop Date: 01/16/17 Status: Discontinued insulin detemir 10 unit, 0.1 mL, Route: SUB-Q, Drug form: SOLN, Q12H, Dosing Weight 77.273, kg, Start date: 01/12/17 9:00:00 CDT, Stop date: 02/10/17 21:00:00 CDT Notes: Same as LevemirDo not hold insulin without contacting prescriberWASTE: F/ P - Black; E - Municipal Trash Bin "single patient use only" Start Date: 01/12/17 Stop Date: 01/12/17 Status: Deleted insulin detemir 10 unit, 0.1 mL, Route: SUB-Q, Drug form: SOLN, Q12H, Dosing Weight 77.273, kg, Start date: 01/12/17 10:00:00 CDT, Duration: 30 day, Stop date: 02/11/17 9:00:00 CDT Notes: Same as LevemirDo not hold insulin without contacting prescriberWASTE: F/ P - Black; E - Municipal Trash Bin "single patient use only" Start Date: 01/12/17 Stop Date: 01/14/17 Status: Discontinued insulin detemir 100 units/mL subcutaneous solution 10 unit, SUB-Q, BID-Before Meals, # 10 mL, 0 Refill(s) Start Date: 01/19/17 Stop Date: 02/18/17 Status: Ordered ketOROLAC (ANES) IV, ONCE Start Date: 01/15/17 Stop Date: 01/15/17 Status: Completed Lactated Ringers 1,000 mL 1,000 mL, Rate: 100 ml/hr, Infuse over: 10 hr, Route: IV, Dosing Weight 70.455 k g, Total Volume: 1,000, Start date: 01/12/17 2:52:00 CDT, Duration: 30 day, Stop date: 02/11/17 2:51:00 CDT Start Date: 01/12/17 Stop Date: 01/14/17 Status: Discontinued Lasix 40 mg, 4 mL, Route: IVP, Drug form: INJ, BID, Dosing Weight 77.273, kg, Priority : NOW, Start date: 01/17/17 10:00:00 CDT, Duration: 30 day, Stop date: 02/16/17 9:00:00 CDT Notes: (Same as: Lasix) MEDICATION WASTE Product Size: 40 mgProduct Was mirna: ___ mg Start Date: 01/17/17 Stop Date: 01/19/17 Status: Discontinued Lasix 20 mg, 2 mL, Route: IVP, Drug form: INJ, ONCE, Dosing Weight 77.273, kg, Start d ate: 01/16/17 12:07:00 CDT, Stop date: 01/16/17 12:07:00 CDT Notes: (Same as: Lasix) Start Date: 01/16/17 Stop Date: 01/16/17 Status: Completed levofloxacin 750 mg, 1 tab, Route: PO, Drug form: TAB, [id number], Dosing Weight 77.273, kg, Sta rt date: 01/17/17 9:00:00 CDT, Duration: 14 day, Stop date: 01/30/17 9:00:00 CDT , ABX Indication: Skin/Soft Tissue Infection Notes: Do not give w/antacids, dairy pdt & mineralsTake 1 hr before or 2 hr after dairy products Start Date: 01/17/17 Stop Date: 01/19/17 Status: Discontinued levofloxacin 750 mg oral tablet 750 mg=1 tab, PO, [id number], X 14 day, # 14 tab, 0 Refill(s) Start Date: 01/19/17 Stop Date: 02/02/17 Status: Ordered lisinopril 20 mg, 1 tab, Route: PO, Drug form: TAB, Daily, Dosing Weight 77.273, kg, Start date: 01/18/17 9:00:00 CDT, Duration: 30 day, Stop date: 02/16/17 9:00:00 CDT Notes: (Same as: Prinivil, Zestril) Start Date: 01/18/17 Stop Date: 01/19/17 Status: Discontinued lisinopril 10 mg, 1 tab, Route: PO, Drug form: TAB, Daily, Dosing Weight 77.273, kg, Start date: 01/12/17 9:00:00 CDT, Duration: 30 day, Stop date: 02/10/17 9:00:00 CDT Notes: (Same as: Prinivil, Zestril) Start Date: 01/12/17 Stop Date: 01/17/17 Status: Discontinued lisinopril 10 mg oral tablet 10 mg=1 tab, PO, Daily, # 30 tab, 0 Refill(s) Start Date: 01/12/17 Stop Date: 01/19/17 Status: Discontinued lisinopril 40 mg oral tablet 40 mg=1 tab, PO, Daily, # 30 tab, 0 Refill(s) Start Date: 01/19/17 Status: Ordered LR 1000 mL INJ (ANES) Route: IV, Total Volume: 1,000, Start date: 01/15/17 12:45:00 CDT, Stop date: 13:45:00 CDT Start Date: 01/15/17 Stop Date: 01/15/17 Status: Completed LR 1000 mL INJ (ANES) Route: IV, Total Volume: 1,000, Start date: 01/12/17 11:07:00 CDT, Stop date: 12:07:00 CDT Start Date: 01/12/17 Stop Date: 01/12/17 Status: Completed Lyrica 150 mg, 2 cap, Route: PO, Drug form: CAP, BID, Dosing Weight 77.273, kg, Start d ate: 01/12/17 9:00:00 CDT, Duration: 30 day, Stop date: 02/10/17 17:00:00 CDT Notes: (Same as: Lyrica) Start Date: 01/12/17 Stop Date: 01/19/17 Status: Discontinued methocarbamol 750 mg, PO, Q4H, 0 Refill(s) Start Date: 01/12/17 Stop Date: 01/19/17 Status: Discontinued midazolam (ANES) Route: IV, Drug form: SOLN, ONCE, Stop date: 01/12/17 12:14:00 CDT Start Date: 01/12/17 Stop Date: 01/12/17 Status: Completed midazolam (ANES) Route: IV, Drug form: SOLN, ONCE, Stop date: 01/15/17 13:34:00 CDT Start Date: 01/15/17 Stop Date: 01/15/17 Status: Completed minocycline 100 mg, 1 cap, Route: PO, Drug form: CAP, [id number], Dosing Weight 77.273, kg, Sta rt date: 01/17/17 9:00:00 CDT, Duration: 14 day, Stop date: 01/30/17 21:00:00 CD T Notes: (Same as:Minocin) No milk/antacids/iron. Start Date: 01/17/17 Stop Date: 01/19/17 Status: Discontinued minocycline 100 mg oral capsule 100 mg=1 cap, PO, [id number], X 14 day, # 28 cap, 0 Refill(s) Start Date: 01/19/17 Stop Date: 02/02/17 Status: Ordered morphine Sulfate 4 mg, 1 mL, Route: IVP, Drug form: INJ, ONCE, Dosing Weight 70.455, kg, Priority : STAT, Start date: 01/12/17 1:52:00 CDT, Stop date: 01/12/17 1:52:00 CDT Notes: (Same as:MORPhine Sulfate) Start Date: 01/12/17 Stop Date: 01/12/17 Status: Completed morphine Sulfate 2 mg, 1 mL, Route: IVP, Drug form: INJ, Q4H, Dosing Weight 77.273, kg, PRN Pain Score 7-10, Start date: 01/12/17 5:06:00 CDT, Duration: 30 day, Stop date: 02/11 5:05:00 CDT Notes: (Same as:MORPhine Sulfate) Start Date: 01/12/17 Stop Date: 01/17/17 Status: Discontinued ondansetron 4 mg, 2 mL, Route: IVP, Drug form: INJ, ONCE, Dosing Weight 70.455, kg, Priority : STAT, Start date: 01/12/17 1:52:00 CDT, Stop date: 01/12/17 1:52:00 CDT Notes: (Same as: Zofran) MEDICATION WASTE Product Size: 4 mgProduct Was mirna: ___ mg Start Date: 01/12/17 Stop Date: 01/12/17 Status: Completed ondansetron 4 mg, 2 mL, Route: IVP, Drug form: INJ, Q6H, Dosing Weight 77.273, kg, PRN Nause a & Vomiting, Start date: 01/12/17 5:06:00 CDT, Duration: 30 day, Stop date: 02/11/17 5:05:00 CDT Notes: (Same as: Zofran) MEDICATION WASTE Product Size: 4 mgProduct Was mirna: ___ mg Start Date: 01/12/17 Stop Date: 01/19/17 Status: Discontinued ondansetron (ANES) Route: IV, Drug form: INJ, ONCE, Stop date: 01/15/17 14:54:00 CDT Start Date: 01/15/17 Stop Date: 01/15/17 Status: Completed piperacillin-tazobactam (ANES) (ANES) Route: IV, Drug form: INJ, Start date: 01/15/17 12:56:00 CDT, Stop date: 7 13:56:00 CDT Start Date: 01/15/17 Stop Date: 01/15/17 Status: Completed Polysporin topical ointment 1 appl, Route: TOP, TID, Drug form: OINT, Start date: 01/13/17 17:00:00 CDT, Dur ation: 3 day, Stop date: 01/16/17 13:00:00 CDT Notes: (Same As: Polysporin) Start Date: 01/13/17 Stop Date: 01/16/17 Status: Completed pregabalin 75 mg oral capsule 150 mg=2 cap, PO, BID, # 120 cap, 0 Refill(s) Start Date: 01/19/17 Stop Date: 02/18/17 Status: Ordered ProAir HFA 90 mcg/inh inhalation aerosol with adapter 2 puff, INHALER, Q6H, PRN for wheezing, # 8.5 gm, 0 Refill(s) Start Date: 01/12/17 Status: Ordered propofol (ANES) Route: IV, Drug form: INJ, ONCE, Stop date: 01/15/17 13:34:00 CDT Start Date: 01/15/17 Stop Date: 01/15/17 Status: Completed QUEtiapine 25 mg oral tablet 50 mg=2 tab, PO, QPM, # 60 tab, 0 Refill(s) Start Date: 01/19/17 Stop Date: 02/18/17 Status: Ordered ropivacaine 0.2% 200ml CADD 200 mL Route: NERVE BLOCK, Continuous Rate: 6, ml/hr, Dosing Site: Supraclavicular Side : Right, SOAPSTONER dose 3 mL, SOAPSTONER dose lockout: 30 minutes, 1 Hour limit: 12 mL, 200, mL, Start date: 01/15/17 15:33:00 CDT, Duration: 30, day, Drug Form: INJ, Total volume: 200... Notes: Same as: Naropin Start Date: 01/15/17 Stop Date: 01/19/17 Status: Discontinued SEROquel 50 mg, 2 tab, Route: PO, Drug form: TAB, QPM, Dosing Weight 77.273, kg, Start da te: 01/13/17 17:00:00 CDT, Duration: 30 day, Stop date: 02/11/17 17:00:00 CDT Notes: (Same as: SEROquel) Start Date: 01/13/17 Stop Date: 01/19/17 Status: Discontinued SEROquel 25 mg oral tablet 50 mg=2 tab, PO, QPM, 0 Refill(s) Start Date: 01/12/17 Stop Date: 01/19/17 Status: Discontinued sodium chloride 0.9% 1000 ml INJ 1,000 mL 1,000 mL, Rate: 75 ml/hr, Infuse over: 13.3 hr, Route: IV, Dosing Weight 77.273 kg, Total Volume: 1,000, Start date: 01/15/17 0:01:00 CDT, Duration: 12 hr, Stop date: 01/15/17 12:00:00 CDT Start Date: 01/15/17 Stop Date: 01/15/17 Status: Completed spironolactone 50 mg oral tablet 100 mg=2 tab, PO, Daily, # 60 tab, 0 Refill(s) Start Date: 01/19/17 Stop Date: 02/18/17 Status: Ordered succinylcholine (ANES) Route: IV, Drug form: INJ, ONCE, Stop date: 01/15/17 13:34:00 CDT Start Date: 01/15/17 Stop Date: 01/15/17 Status: Completed tramadol 50 mg oral tablet 50 mg=1 tab, PO, TID, PRN Pain, X 14 day, # 42 tab, 0 Refill(s) Start Date: 01/19/17 Stop Date: 02/02/17 Status: Ordered vancomycin 1.25 gm, 250 mL, Route: IVPB, Drug form: INJ, Q12H, Start date: 01/12/17 10:00:0 0 CDT, Duration: 30 day, Stop date: 02/10/17 22:00:00 CDT Notes: TIME CRITICAL MEDICATIONSame as: Vancocin-NS (premixed)Infusion rate< 1000 mg: infuse over 1 [id number] - 1500 mg: infuse over 1.5 [id number] - 2000 mg: infuse over 2 hours> 2001 mg: infuse over 2.5 hours Start Date: 01/12/17 Stop Date: 01/12/17 Status: Canceled vancomycin 1 gm, Route: IVPB, Drug form: INJ, ABXQ8H, Start date: 01/12/17 10:00:00 CDT, Du ration: 30 day, Stop date: 02/11/17 4:00:00 CDT Notes: TIME CRITICAL MEDICATION(Same As: Vancocin)Infusion rate< 1000 mg: infuse over 1 [id number] - 1500 mg: infuse over 1.5 [id number] - 2000 mg: infuse over 2 hours> 2001 mg: infuse over 2.5 hours MEDICATION WASTE Product Size: 1000 mgProduct Wasted: ___ mg Start Date: 01/12/17 Stop Date: 01/12/17 Status: Deleted vancomycin 1 gm, Route: IVPB, Drug form: INJ, ABXQ8H, Start date: 01/12/17 19:00:00 CDT, Du ration: 30 day, Stop date: 02/11/17 12:00:00 CDT Notes: TIME CRITICAL MEDICATION(Same As: Vancocin)Infusion rate< 1000 mg: infuse over 1 [id number] - 1500 mg: infuse over 1.5 [id number] - 2000 mg: infuse over 2 hours> 2001 mg: infuse over 2.5 hours MEDICATION WASTE Product Size: 1000 mgProduct Wasted: ___ mg Start Date: 01/12/17 Stop Date: 01/14/17 Status: Discontinued vancomycin 1,000 mg, Route: IVPB, Drug form: INJ, Q12H, Dosing Weight 77.273, kg, Start megan e: 01/12/17 10:00:00 CDT, Duration: 30 day, Stop date: 02/10/17 22:00:00 CDT Notes: TIME CRITICAL MEDICATION(Same As: Vancocin)Infusion rate< 1000 mg: infuse over 1 [id number] - 1500 mg: infuse over 1.5 [id number] - 2000 mg: infuse over 2 hours> 2001 mg: infuse over 2.5 hours MEDICATION WASTE Product Size: 1000 mgProduct Wasted: ___ mg Start Date: 01/12/17 Stop Date: 01/12/17 Status: Discontinued vancomycin (ANES) (ANES) Route: IV, Drug form: INJ, Start date: 01/12/17 11:16:00 CDT, Stop date: 12:16:00 CDT Start Date: 01/12/17 Stop Date: 01/12/17 Status: Completed vancomycin + sodium chloride 0.9% INJ 250 mL 1.5 gm, Route: IVPB, ABXQ8H, Start date: 01/14/17 22:00:00 CDT, Duration: 30 day , Stop date: 02/13/17 22:00:00 CDT Notes: TIME CRITICAL MEDICATION(Same As: Vancocin)Infusion rate< 1000 mg: infuse over 1 [id number] - 1500 mg: infuse over 1.5 hoursVancomycin FOR IV SET [id number] - 2000 mg: infuse over 2 hours> 2001 mg: infuse over 2.5 hours MEDICATION WASTE Product Size: 1000 mgProduct Wasted: ___ mg Start Date: 01/14/17 Stop Date: 01/17/17 Status: Discontinued venlafaxine 75 mg oral capsule, extended release 75 mg=1 cap, PO, Daily, # 30 cap, 0 Refill(s) Start Date: 01/19/17 Stop Date: 02/18/17 Status: Ordered Vitamin C 500 mg, 1 tab, Route: CHEW, Drug form: TAB, Daily, Dosing Weight 77.273, kg, Sta rt date: 01/12/17 9:00:00 CDT, Duration: 30 day, Stop date: 02/10/17 9:00:00 CDT Notes: (Same as: Vitamin C) Start Date: 01/12/17 Stop Date: 01/12/17 Status: Deleted Vitamin C 500 mg, 1 tab, Route: PO, Drug form: TAB, Daily, Dosing Weight 77.273, kg, Start date: 01/12/17 9:00:00 CDT, Duration: 30 day, Stop date: 02/10/17 9:00:00 CDT Notes: (Same as: Vitamin C) Start Date: 01/12/17 Stop Date: 01/19/17 Status: Discontinued Zosyn 3.375 gm, Route: IVPB, Drug form: PDR/INJ, ABXQ8H, Dosing Weight 77.273, kg, CrC l >=20 ml/min infuse over 4 hours, Start date: 01/12/17 5:00:00 CDT, Duration: 30 day, Stop date: 02/11/17 2:00:00 CDT Notes: (Same as: Zosyn)Dosing based on Piperacillin component MEDICATION WA LUCIUS Product Size: 3375 mgProduct Wasted: ___ mg Start Date: 01/12/17 Stop Date: 01/17/17 Status: Discontinued Results BLOOD BANK RESULTS Most recent to 1 2 3 4 oldest [Reference Range]: ABO/Rh O POS *Unknown* (01/14/17 3:46 AM) Antibody Scrn Negative (01/14/17 3:46 AM) ELECTROLYTES Most recent to 1 2 3 4 oldest [Reference Range]: Sodium Lvl [135-145 140 mEq/L 139 mEq/L 141 mEq/L mEq/L] (01/19/17 5:48 AM) (01/18/17 5:26 AM) (01/17/17 2:59 AM) Potassium Lvl 4.0 mEq/L 4.1 mEq/L 4.2 mEq/L [3.5-5.1 mEq/L] (01/19/17 5:48 AM) (01/18/17 5:26 AM) (01/17/17 2:59 AM) Chloride Lvl [95-109 103 mEq/L 103 mEq/L 105 mEq/L mEq/L] (01/19/17 5:48 AM) (01/18/17 5:26 AM) (01/17/17 2:59 AM) CO2 [24-32 mEq/L] 30 mEq/L 31 mEq/L 29 mEq/L (01/19/17 5:48 AM) (01/18/17 5:26 AM) (01/17/17 2:59 AM) AGAP [10.0-20.0 11.0 mEq/L 9.1 mEq/L 11.2 mEq/L mEq/L] (01/19/17 5:48 AM) *LOW* (01/17/17 2:59 AM) (01/18/17 5:26 AM) CHEM PANEL Most recent to 1 2 3 4 oldest [Reference Range]: Creatinine Lvl 0.90 mg/dL 0.74 mg/dL 0.75 mg/dL [0.50-1.40 mg/dL] (01/19/17 5:48 AM) (01/18/17 5:26 AM) (01/17/17 2:59 AM) eGFR 76 mL/min/1.73m2 1 95 mL/min/1.73m2 2 95 mL/min/1.73m2 3 *NA* *NA* *NA* (01/19/17 5:48 AM) (01/18/17 5:26 AM) (01/17/17 2:59 AM) BUN [7-22 mg/dL] 22 mg/dL 20 mg/dL 20 mg/dL (01/19/17 5:48 AM) (01/18/17 5:26 AM) (01/17/17 2:59 AM) Glucose Lvl [70-99 136 mg/dL 165 mg/dL 200 mg/dL mg/dL] *HI* *HI* *HI* (01/19/17 5:48 AM) (01/18/17 5:26 AM) (01/17/17 2:59 AM) Calcium Lvl 7.9 mg/dL 7.9 mg/dL 7.7 mg/dL [8.5-10.5 mg/dL] *LOW* *LOW* *LOW* (01/19/17 5:48 AM) (01/18/17 5:26 AM) (01/17/17 2:59 AM) Magnesium Lvl 1.8 mg/dL [1.8-2.4 mg/dL] (01/19/17 5:48 AM) 1Result Comment: The eGFR is calculated using the [...] from the National Kidney Disease Education Program ( NKDEP) which additionally recommends that when the eGFR is used in patients with extremes of body mass index for purposes of drug dosing, the eGFR should be mul tiplied by the estimated BMI. 2Result Comment: The eGFR is calculated using the [...] from the National Kidney Disease Education Program ( NKDEP) which additionally recommends that when the eGFR is used in patients with extremes of body mass index for purposes of drug dosing, the eGFR should be mul tiplied by the estimated BMI. 3Result Comment: The eGFR is calculated using the [...] from the National Kidney Disease Education Program ( NKDEP) which additionally recommends that when the eGFR is used in patients with extremes of body mass index for purposes of drug dosing, the eGFR should be mul tiplied by the estimated BMI. CARDIAC ENZYMES Most recent to oldest [Reference Range]: BNP [<=100 pg/mL] 596 pg/mL *HI* (01/16/17 8:00 PM) LIPIDS Most recent to [Reference Range]: CHD Risk [3.90-5.80] 3.89 *LOW* (01/15/17 3:25 AM) Chol [<=199 mg/dL] 74 mg/dL (01/15/17 3:25 AM) Trig [<=149 mg/dL] 71 mg/dL (01/15/17 3:25 AM) HDL [>=61 mg/dL] 19 mg/dL *LOW* (01/15/17 3:25 AM) LDL (Calculated) 41 mg/dL [<=99 mg/dL] (01/15/17 3:25 AM) VLDL 14 *NA* (01/15/17 3:25 AM) SPECIAL CHEMISTRY Most recent to oldest [Reference Range]: Hgb A1C [<=5.6 %] 9.3 % *HI* (01/15/17 3:25 AM) TOXICOLOGY Most recent to oldest [Reference Range]: Vanco Tr TND 1330 0930 *NA* *NA* (01/16/17 1:48 PM) (01/14/17 3:46 AM) Vanco Lvl 7.1 ug/ml *NA* (01/14/17 7:39 PM) Vanco Tr 41.8 ug/ml 20.9 ug/ml *NA* *NA* (01/16/17 1:48 PM) (01/14/17 3:46 AM) HEMATOLOGY Most recent to 1 2 3 4 oldest [Reference Range]: WBC [3.7-10.4 K/CMM] 8.2 K/CMM 12.9 K/CMM 13.5 K/CMM 13.5 K/CMM (01/19/17 5:48 AM) *HI* *HI* *HI* (01/16/17 1:48 PM) (01/15/17 3:25 AM) (01/15/17 3:25 AM) RBC [4.20-5.40 3.43 M/CMM 3.67 M/CMM 3.46 M/CMM 3.46 M/CMM M/CMM] *LOW* *LOW* *LOW* *LOW* (01/19/17 5:48 AM) (01/16/17 1:48 PM) (01/15/17 3:25 AM) (01/15/17 3:25 AM) Hgb [12.0-16.0 g/dL] 9.2 g/dL 9.8 g/dL 9.2 g/dL 9.2 g/dL *LOW* *LOW* *LOW* *LOW* (01/19/17 5:48 AM) (01/16/17 1:48 PM) (01/15/17 3:25 AM) (01/15/17 3:25 AM) Hct [36.0-48.0 %] 27.7 % 30.3 % 28.3 % 28.3 % *LOW* *LOW* *LOW* *LOW* (01/19/17 5:48 AM) (01/16/17 1:48 PM) (01/15/17 3:25 AM) (01/15/17 3:25 AM) MCV [80.0-98.0 fL] 80.8 fL 82.5 fL 81.8 fL 81.8 fL (01/19/17 5:48 AM) (01/16/17 1:48 PM) (01/15/17 3:25 AM) (01/15/17 3:25 AM) MCH [27.0-31.0 pg] 26.8 pg 26.7 pg 26.6 pg 26.6 pg *LOW* *LOW* *LOW* *LOW* (01/19/17 5:48 AM) (01/16/17 1:48 PM) (01/15/17 3:25 AM) (01/15/17 3:25 AM) MCHC [32.0-36.0 33.2 g/dL 32.4 g/dL 32.5 g/dL 32.5 g/dL g/dL] (01/19/17 5:48 AM) (01/16/17 1:48 PM) (01/15/17 3:25 AM) (01/15/17 3:25 AM) RDW [11.5-14.5 %] 16.3 % 15.9 % 15.9 % 15.9 % *HI* *HI* *HI* *HI* (01/19/17 5:48 AM) (01/16/17 1:48 PM) (01/15/17 3:25 AM) (01/15/17 3:25 AM) Platelet [133-450 309 K/CMM 326 K/CMM 271 K/CMM 271 K/CMM K/CMM] (01/19/17 5:48 AM) (01/16/17 1:48 PM) (01/15/17 3:25 AM) (01/15/17 3:25 AM) MPV [7.4-10.4 fL] 6.7 fL 6.9 fL 6.7 fL 6.7 fL *LOW* *LOW* *LOW* *LOW* (01/19/17 5:48 AM) (01/16/17 1:48 PM) (01/15/17 3:25 AM) (01/15/17 3:25 AM) Segs [45.0-75.0 %] 72.0 % 80.7 % 72.4 % (01/16/17 1:48 PM) *HI* (01/14/17 3:46 AM) (01/15/17 3:25 AM) Lymphocytes 23.2 % 14.0 % 20.2 % [20.0-40.0 %] (01/16/17 1:48 PM) *LOW* (01/14/17 3:46 AM) (01/15/17 3:25 AM) Monocytes [2.0-12.0 3.7 % 4.3 % 5.7 % %] (01/16/17 1:48 PM) (01/15/17 3:25 AM) (01/14/17 3:46 AM) Eosinophils [0.0-4.0 0.8 % 0.9 % 1.5 % %] (01/16/17 1:48 PM) (01/15/17 3:25 AM) (01/14/17 3:46 AM) Basophils [0.0-1.0 0.3 % 0.1 % 0.2 % %] (01/16/17 1:48 PM) (01/15/17 3:25 AM) (01/14/17 3:46 AM) Segs-Bands # 9.3 K/CMM 10.9 K/CMM 9.5 K/CMM [1.5-8.1 K/CMM] *HI* *HI* *HI* (01/16/17 1:48 PM) (01/15/17 3:25 AM) (01/14/17 3:46 AM) Lymphocytes # 3.0 K/CMM 1.9 K/CMM 2.6 K/CMM [1.0-5.5 K/CMM] (01/16/17 1:48 PM) (01/15/17 3:25 AM) (01/14/17 3:46 AM) Monocytes # [0.0-0.8 0.5 K/CMM 0.6 K/CMM 0.7 K/CMM K/CMM] (01/16/17 1:48 PM) (01/15/17 3:25 AM) (01/14/17 3:46 AM) Eosinophils # 0.1 K/CMM 0.1 K/CMM 0.2 K/CMM [0.0-0.5 K/CMM] (01/16/17 1:48 PM) (01/15/17 3:25 AM) (01/14/17 3:46 AM) PT [12.0-14.7 15.2 seconds seconds] *HI* (01/14/17 3:46 AM) INR [0.85-1.17] 1.18 *HI* (01/14/17 3:46 AM) PTT [22.9-35.8 32.3 seconds seconds] (01/14/17 3:46 AM) Immunizations Given and Recorded Vaccine Date Status Refusal Reason pneumococcal 23-valent vaccine 05/27/15 Given Procedures Procedure Date Related Diagnosis Body Site Abdominal hysterectomy Cardiac catheterization, left heart Cholecystectomy Social History Social History Type Response Substance Abuse Use: Current. Type: Marijuana. Alcohol Past, Type Beer, Wine, Liquor. Frequency: Several times per day. Last use: 2010. Previous treatment: Outpatient. Smoking Status Never smoker; Exposure to Tobacco Smoke None; Cigarette Smoking Last 365 Days No; Reg Smoking Cessation Counseling No Assessment and Plan Extracted from: Title: Progress Note Author: Anjali Baca MD Date: [...] left the OSH AMA and presented to [facility] for second opinion. She was then transferred to [facility] for HLOC, and underwent I&D with placement [...] in-case of emergency, per nursing staff. Extracted from: Title: Interventional Radiology Author: Lisa Benjamin NP Date: [...] ml/hr Labs: 24hr Labs 01/13 1214 Glucose JJB470 H 01/13 0724 Glucose XVK434 H 01/13 0602 Glucose DRT024 H 01/13 0355 Glucose Grr486 H BUN27 H Creatinine Lvl0.78 Sodium Kdf885 Potassium Lvl5.2 H Chloride Vwv279 CO221 L AGAP14.2 Calcium Lvl7.1 L eGFR90 WBC15.7 H RBC3.76 L Hgb10.2 L Hct31.0 L MCV82.3 MCH27.2 MCHC33.1 RDW16.3 H Eokpwknm427 MPV7.7 01/12 2131 Glucose RNM277 H INR: 1.23 High (01/11/17 22:09:27) Imaging [...] bipolar depression Endocrine: + diabetes Physical Examination: VitalsTmp(F)Tmp(C)AfrfzWXVVDCgwaiHCVhD2GXA3KFZU8 01/13 12:1997.536.17ubaj511/85---[id number]------ 01/13 08:2698.536.74gulu739/84---[id number]------ 01/13 04:0197.936.03sypx160/82---626524------ 01/12 23:3697.836.46oosy942/83---[id number]------ 01/12 20:1197.736.76bfyu950/85---[id number]------ 24 Hr Tmax: 98.5F (36.94c) at 01/13 08:26Vital Signs are the last 5 in the past 48 hours. 24 Hr Tmin: 97.5F (36.39c) at 01/13 12:19Weights are the last 5 in 60 days, plus initial. DateWt(kg)Wt(lb)Ht(cm)Ht(in)MethodBMIBSA 01/12 (initial) 77.27 170.00Estimated 29.21.87 62.56 64.00Stated 24 Hr Point of Care Glucoses 01/13 1214Glucose LDL212 H 01/13 0724Glucose LTQ634 H 01/13 0602Glucose TAI761 H 01/12 2131Glucose EVZ802 H Most Recent Scores: 01/13/17Pain Intensity NRS (0-10)9 01/12/17Braden Score18 01/12/17Glasgow Coma Score15 01/12/17[place] Fall Score9 Lines, Tubes, and Drains: 01/13/2017 11:50 Peripheral Lines: Forearm Left 20 gauge Over the needle catheter Surgical Procedures: (no date)RIGHT HAND AMPUTATION, POSSIBLE IRRIGATION AND DEBRIDEMENT WITH WOUND VAC EXCHANGE [id number](primary surgeon unspecified) (no date) [id number](primary surgeon unspecified) (no date) [id number](primary surgeon unspecified) 01/12/17 11:37IRRIGATION AND DEBRIDEMENT WITH STERILE WOUND VAC DRESSING TO THE RIGHT HAND [id number] Surgeon: Jose York DO (Service: ORT) General: Active, alert, well developed female who is out of bed in a chair Head: Normocephalic, atraumatic Eyes: sclera is clear Hearing: normal to spoken voice Speech: Adequate vocabulary, no impediments Nose: [place] nasal turbinates, septum midline, no drainage or [...] IF YOU HAVE ANY QUESTIONS, PLEASE CONTACT [phone]. Extracted from: Title: History and Physical Author: Vannesa Odom MD Date: 01/12/17 Assessment/Plan 51-year-old female patientwith a right hand infection for last 2 weekswas being treated at a different facility and signed out AGAINST MEDICAL ADVICE[facility] the patient was in disagreement with hermedical [...]
--- OUTSIDE RECORDS SUMMARY | 2019-05-04 10:39 | XMS REPORT | Summary of Care ---
Author Author [facility] Organization [facility] Address Unknown Phone Unavailable Encounter HQ Hillary(FIN) [id number] Date(s): 01/11/17 - 01/12/17 [facility] [address] [place] [address]- Discharge Disposition: Other Healthcare Facility Attending Physician: Gordo Faria MD Vital Signs 1 2 3 Most recent to oldest [Reference Range]: 162.56 cm (01/11/17 8:07 PM) Height 99.0 DegF (01/12/17 12:26 AM) 99.0 DegF (01/11/17 8:07 PM) Temperature Oral [96.4-99.1 DegF] 183/89 mmHg *HI* (01/12/17 12:26 AM) 202/93 mmHg *HI* (01/12/17 12:16 AM) 218/105 mmHg *HI* (01/11/17 11:43 PM) Blood Pressure [90-140/60-90 mmHg] 18 BRMIN (01/12/17 12:26 AM) 16 BRMIN (01/12/17 12:16 AM) 18 BRMIN (01/11/17 11:43 PM) Respiratory Rate [14-20 BRMIN] 89 bpm (01/12/17 12:26 AM) 79 bpm (01/12/17 12:16 AM) 79 bpm (01/11/17 11:43 PM) Peripheral Pulse Rate [60-100 bpm] Problem List Condition Effective Dates Status Health Status Informant Cirrhosis, Resolved alcoholic(Confirmed) CAD (coronary artery Active disease)(Confirmed) Irritable bowel Resolved syndrome (IBS)(Confirmed) MRSA (methicillin Resolved resistant staph aureus) culture positive(Confirmed) Diabetes(Confirmed) Active Neuropathy in Active diabetes(Confirmed) Enterobacter(Confirm 05/23/15 Active ed)1, 2 Hepatitis Resolved c(Confirmed) Hypertension(Confirm Resolved ed) Depression(Confirmed Active ) MRSA(Confirmed)3, 4 05/23/15 Active Herniated lumbar Resolved intervertebral disc(Confirmed) Sleep Resolved apnea(Confirmed) Hepatitis Resolved C(Confirmed) 1Breast abscess, E. aerogenes, 05/23/2015 2Problem added by Discern Expert. 3Nares, 05/23/2015 4Problem added by Discern Expert. Allergies, Adverse Reactions, Alerts Substance Reaction Severity Status NKDA Active Medications hydrALAZINE 10 mg, Route: IVP, ONCE, Dosing Weight 70.455, kg, Priority: STAT, Start date: 0 01/12/17 0:15:00 CDT, Stop date: 01/12/17 0:15:00 CDT Start Date: 01/12/17 Stop Date: 01/12/17 Status: Completed morphine Sulfate 4 mg, 1 mL, Route: IVP, Drug form: INJ, ONCE, Dosing Weight 70.455, kg, Priority : STAT, Start date: 01/11/17 21:22:00 CDT, Stop date: 01/11/17 21:22:00 CDT Notes: (Same as:MORPhine Sulfate) Start Date: 01/11/17 Stop Date: 01/11/17 Status: Completed NS (Bolus) IV 1,000 mL, 1,000 ml/hr, Infuse Over: 1 hr, Route: IV, 1,000, Drug form: INJ, ONCE , Priority: STAT, Dosing Weight 70.455 kg, Start date: 01/11/17 21:22:00 CDT, Du ration: 1 doses or times, Stop date: 01/11/17 21:22:00 CDT Start Date: 01/11/17 Stop Date: 01/11/17 Status: Completed vancomycin 1,250 mg, 250 mL, Route: IVPB, Drug form: INJ, ONCE, Dosing Weight 70.455, kg, P riority: STAT, Start date: 01/11/17 22:02:00 CDT, Stop date: 01/11/17 22:02:00 C DT Notes: TIME CRITICAL MEDICATIONSame as: Vancocin-NS (premixed)Infusion rate< 1000 mg: infuse over 1 [id number] - 1500 mg: infuse over 1.5 [id number] - 2000 mg: infuse over 2 hours> 2001 mg: infuse over 2.5 hours Start Date: 01/11/17 Stop Date: 01/11/17 Status: Completed Results ELECTROLYTES Most recent to 1 oldest [Reference Range]: Sodium Lvl [135-145 136 mEq/L mEq/L] (01/11/17 9:48 PM) Potassium Lvl 4.6 mEq/L [3.5-5.1 mEq/L] (01/11/17 9:48 PM) Chloride Lvl [95-109 105 mEq/L mEq/L] (01/11/17 9:48 PM) CO2 [24-32 mEq/L] 23 mEq/L *LOW* (01/11/17 9:48 PM) AGAP [10.0-20.0 12.6 mEq/L mEq/L] (01/11/17 9:48 PM) CHEM PANEL Most recent to 1 oldest [Reference Range]: Creatinine Lvl 0.72 mg/dL [0.50-1.40 mg/dL] (01/11/17 9:48 PM) eGFR 99 mL/min/1.73m2 1 *NA* (01/11/17 9:48 PM) BUN [7-22 mg/dL] 29 mg/dL *HI* (01/11/17 9:48 PM) B/C Ratio [6-25] 40 *HI* (01/11/17 9:48 PM) Glucose Lvl [70-99 170 mg/dL mg/dL] *HI* (01/11/17 9:48 PM) Total Protein 5.6 g/dL [6.4-8.4 g/dL] *LOW* (01/11/17 9:48 PM) Albumin Lvl [3.5-5.0 1.4 g/dL g/dL] *LOW* (01/11/17 9:48 PM) Globulin [2.7-4.2 4.2 g/dL g/dL] (01/11/17 9:48 PM) A/G Ratio [0.7-1.6] 0.3 *LOW* (01/11/17 9:48 PM) Calcium Lvl 7.2 mg/dL [8.5-10.5 mg/dL] *LOW* (01/11/17 9:48 PM) ALT [0-65 unit/L] 21 unit/L (01/11/17 9:48 PM) AST [0-37 unit/L] 23 unit/L (01/11/17 9:48 PM) Alk Phos [39-136 299 unit/L unit/L] *HI* (01/11/17 9:48 PM) Bili Total [0.2-1.3 0.5 mg/dL mg/dL] (01/11/17 9:48 PM) Lipase Lvl [73-393 52 unit/L unit/L] *LOW* (01/11/17 9:48 PM) Lactic Acid Lvl 1.3 mMol/L [0.5-2.2 mMol/L] (01/11/17 9:48 PM) 1Result Comment: The eGFR is calculated using [...] estimated BMI. CARDIAC ENZYMES Most recent to 1 oldest [Reference Range]: Total CK [12-191 40 unit/L unit/L] (01/11/17 9:48 PM) Troponin-I <0.02 ng/mL [0.00-0.40 ng/mL] (01/11/17 9:48 PM) ENDOCRINOLOGY Most recent to 1 oldest [Reference Range]: S Preg [Negative] Negative *NA* (01/11/17 9:48 PM) URINE AND STOOL Most recent to 1 oldest [Reference Range]: UA Turbidity [Clear] Clear (01/11/17 10:43 PM) UA Color [Yellow] Light Yellow *NA* (01/11/17 10:43 PM) UA pH [5.0-8.0] 5.0 (01/11/17 10:43 PM) UA Spec Grav 1.012 [<=1.030] (01/11/17 10:43 PM) UA Glucose [Negative Negative mg/dL mg/dL] *NA* (01/11/17 10:43 PM) UA Blood [Negative] Negative (01/11/17 10:43 PM) UA Ketones [Negative Negative mg/dL mg/dL] *NA* (01/11/17 10:43 PM) UA Protein [Negative Negative mg/dL mg/dL] (01/11/17 10:43 PM) UA Urobilinogen <=1.0 mg/dL [0.1-1.0 mg/dL] *NA* (01/11/17 10:43 PM) UA Bili [Negative] Negative *NA* (01/11/17 10:43 PM) UA Leuk Est Negative [Negative] (01/11/17 10:43 PM) UA Nitrite Negative [Negative] (01/11/17 10:43 PM) UA WBC [0-5 /HPF] 4 /HPF *NA* (01/11/17 10:43 PM) UA RBC [0-2 /HPF] 4 /HPF *NA* (01/11/17 10:43 PM) UA Sq Epi [Few /LPF] Few /LPF *NA* (01/11/17 10:43 PM) IMMUNOLOGY Most recent to 1 oldest [Reference Range]: CRP [<=2.9 mg/L] 174.0 mg/L *HI* (01/11/17 9:48 PM) HEMATOLOGY Most recent to 1 oldest [Reference Range]: WBC [3.7-10.4 K/CMM] 24.1 K/CMM *HI* (01/11/17 11:04 PM) RBC [4.20-5.40 3.94 M/CMM M/CMM] *LOW* (01/11/17 11:04 PM) Hgb [12.0-16.0 g/dL] 10.7 g/dL *LOW* (01/11/17 11:04 PM) Hct [36.0-48.0 %] 31.7 % *LOW* (01/11/17 11:04 PM) MCV [80.0-98.0 fL] 80.4 fL (01/11/17 11:04 PM) MCH [27.0-31.0 pg] 27.0 pg (01/11/17 11:04 PM) MCHC [32.0-36.0 33.6 g/dL g/dL] (01/11/17 11:04 PM) RDW [11.5-14.5 %] 15.9 % *HI* (01/11/17:04 PM) Platelet [133-450 331 K/CMM K/CMM] (01/11/17 11:04 PM) MPV [7.4-10.4 fL] 6.8 fL *LOW* (01/11/17:04 PM) Segs [45.0-75.0 %] 87.8 % *HI* (01/11/17 11:04 PM) Lymphocytes 6.7 % [20.0-40.0 %] *LOW* (01/11/17:04 PM) Monocytes [2.0-12.0 4.5 % %] (01/11/17 11:04 PM) Eosinophils [0.0-4.0 0.8 % %] (01/11/17 11:04 PM) Basophils [0.0-1.0 0.2 % %] (01/11/17 11:04 PM) Segs-Bands # 21.2 K/CMM [1.5-8.1 K/CMM] *HI* (01/11/17 11:04 PM) Lymphocytes # 1.6 K/CMM [1.0-5.5 K/CMM] (01/11/17 11:04 PM) Monocytes # [0.0-0.8 1.1 K/CMM K/CMM] *HI* (01/11/17 11:04 PM) Eosinophils # 0.2 K/CMM [0.0-0.5 K/CMM] (01/11/17 11:04 PM) Sed Rate [0-20 7 mm/hr mm/hr] (01/11/17 11:04 PM) PT [12.0-14.7 15.8 seconds seconds] *HI* (01/11/17 9:48 PM) INR [0.85-1.17] 1.23 *HI* (01/11/17 9:48 PM) Immunizations Given and Recorded Vaccine Date Status [...] Smoking Cessation Counseling No Assessment and Plan No data available for this section
--- OUTSIDE RECORDS SUMMARY | 2019-05-04 10:40 | XMS REPORT | Summary of Care ---
Author Author [facility] Organization [facility] Address Unknown Phone Unavailable Encounter CHUYITA Thornton(ARIC) [id number] Date(s): 04/08/18 - 04/08/18 [facility] [id number] [place] [address]- Encounter Diagnosis Muscle tremor (Discharge Diagnosis) - 04/08/18 Tremor, unspecified (Final) - 04/14/18 Atherosclerotic heart disease of [place] coronary artery without angina pectoris (Final) - Major depressive disorder, single episode, unspecified (Final) - Essential (primary) hypertension (Final) - Type 2 diabetes mellitus with diabetic neuropathy, unspecified (Final) - Irritable bowel syndrome without diarrhea (Final) - Alcoholic cirrhosis of liver without ascites (Final) - half-way (current) use of insulin (Final) - terminal carman (current) use of aspirin (Final) - Other [facility] (current) drug therapy (Final) - Personal history of Methicillin resistant Staphylococcus aureus infection (Final) - Discharge Disposition: Intermediate Care Attending Physician: Godwin Mejia MD Vital Signs 1 2 3 Most recent to oldest [Reference Range]: 98.6 DegF (04/08/18 3:17 PM) Temperature Oral [96.4-99.1 DegF] 110/59 mmHg (04/08/18 8:06 PM) 111/96 mmHg (04/08/18 7:00 PM) 114/70 mmHg (04/08/18 6:00 PM) Blood Pressure [90-140/60-90 mmHg] 18 BRMIN (04/08/18 8:06 PM) 18 BRMIN (04/08/18 7:00 PM) 12 BRMIN *LOW* (04/08/18 6:00 PM) Respiratory Rate [14-20 BRMIN] 94 bpm (04/08/18 8:06 PM) 92 bpm (04/08/18 3:17 PM) Peripheral Pulse Rate [60-100 bpm] Problem List Condition Effective Dates Status Health Status Informant Cirrhosis, Active alcoholic(Confirmed) CAD (coronary artery Active disease)(Confirmed) Irritable bowel Active syndrome (IBS)(Confirmed) CHF (congestive Active heart failure)(Confirmed) MRSA (methicillin Resolved resistant staph aureus) culture positive(Confirmed) Enterobacter(Confirm 05/23/15 Active ed)1, 2 Hx of Active cirrhosis(Confirmed) Hepatitis Active c(Confirmed) HLD Active (hyperlipidemia)(Con firmed) Hypertension(Confirm Active ed) Depression(Confirmed Active ) MRSA(Confirmed)3, 4 05/23/15 Active Neuropathy(Confirmed Active ) Herniated lumbar Active intervertebral disc(Confirmed) Sleep Active apnea(Confirmed) 1Breast abscess, E. aerogenes, 05/23/2015 2Problem added by Discern Expert. 3Nares, 05/23/2015 4Problem added by Discern Expert. Allergies, Adverse Reactions, Alerts Substance Reaction Severity Status [place] Active Medications ketOROLAC 15 mg/mL injectable solution 15 mg, Route: IVP, Drug form: INJ, ONCE, Dosing Weight 77.273, kg, Priority: STA T, Start date: 04/08/18 17:32:00 CDT, Stop date: 04/08/18 17:32:00 CDT Start Date: 04/08/18 Stop Date: 04/08/18 Status: Completed Saline Flush 0.9% 10 mL, Route: IVP, Drug Form: INJ, Dosing Weight 77.273, kg, PRN, PRN Line Flush , Start date: 04/08/18 16:21:00 CDT, Duration: 30 day, Stop date: 05/08/18 16:20 :00 CDT Notes: (Same as: BD Posiflush) Start Date: 04/08/18 Stop Date: 04/08/18 Status: Discontinued Results ELECTROLYTES Most recent to 1 oldest [Reference Range]: Sodium Lvl [135-145 139 mEq/L mEq/L] (04/08/18 4:31 PM) Potassium Lvl 5.0 mEq/L [3.5-5.1 mEq/L] (04/08/18 4:31 PM) Chloride Lvl [95-109 103 mEq/L mEq/L] (04/08/18 4:31 PM) CO2 [24-32 mEq/L] 27 mEq/L (04/08/18 4:31 PM) AGAP [10.0-20.0 14.0 mEq/L mEq/L] (04/08/18 4:31 PM) CHEM PANEL Most recent to 1 oldest [Reference Range]: Creatinine Lvl 1.80 mg/dL [0.50-1.40 mg/dL] *HI* (04/08/18 4:31 PM) eGFR 32 mL/min/1.73m2 1 *NA* (04/08/18 4:31 PM) BUN [7-22 mg/dL] 39 mg/dL *HI* (04/08/18 4:31 PM) B/C Ratio [6-25] 22 (04/08/18 4:31 PM) Glucose Lvl [70-99 279 mg/dL mg/dL] *HI* (04/08/18 4:31 PM) Total Protein 7.0 g/dL [6.4-8.4 g/dL] (04/08/18 4:31 PM) Albumin Lvl [3.5-5.0 2.9 g/dL g/dL] *LOW* (04/08/18 4:31 PM) Globulin [2.7-4.2 4.1 g/dL g/dL] (04/08/18 4:31 PM) A/G Ratio [0.7-1.6] 0.7 (04/08/18 4:31 PM) Calcium Lvl 8.7 mg/dL [8.5-10.5 mg/dL] (04/08/18 4:31 PM) ALT [0-65 unit/L] 19 unit/L (04/08/18 4:31 PM) AST [0-37 unit/L] 15 unit/L (04/08/18 4:31 PM) Alk Phos [39-136 144 unit/L unit/L] *HI* (04/08/18 4:31 PM) Bili Total [0.2-1.3 0.1 mg/dL mg/dL] *LOW* (04/08/18 4:31 PM) 1Result Comment: The eGFR is calculated [...] 1 oldest [Reference Range]: Total CK [12-191 125 unit/L unit/L] (04/08/18 4:31 PM) CK MB [0.5-3.6 2.1 ng/mL ng/mL] (04/08/18 4:31 PM) CK MB Index 1.7 [0.0-2.5] (04/08/18 4:31 PM) Troponin-I <0.02 ng/mL [0.00-0.40 ng/mL] (04/08/18 4:31 PM) BNP [<=100 pg/mL] 77 pg/mL (04/08/18 4:31 PM) HEMATOLOGY Most recent to 1 oldest [Reference Range]: WBC [3.7-10.4 K/CMM] 5.8 K/CMM (04/08/18 4:31 PM) RBC [4.20-5.40 3.65 M/CMM M/CMM] *LOW* (04/08/18 4:31 PM) Hgb [12.0-16.0 g/dL] 10.1 g/dL *LOW* (04/08/18 4:31 PM) Hct [36.0-48.0 %] 30.4 % *LOW* (04/08/18 4:31 PM) MCV [80.0-98.0 fL] 83.3 fL (04/08/18 4:31 PM) MCH [27.0-31.0 pg] 27.8 pg (04/08/18 4:31 PM) MCHC [32.0-36.0 33.3 g/dL g/dL] (04/08/18 4:31 PM) RDW [11.5-14.5 %] 14.1 % (04/08/18 4:31 PM) MPV [7.4-10.4 fL] 8.3 fL (04/08/18 4:31 PM) Platelet [133-450 144 K/CMM K/CMM] (04/08/18 4:31 PM) Segs [45.0-75.0 %] 60.6 % (04/08/18 4:31 PM) Lymphocytes 26.7 % [20.0-40.0 %] (04/08/18 4:31 PM) Monocytes [2.0-12.0 6.5 % %] (04/08/18 4:31 PM) Eosinophils [0.0-4.0 5.7 % %] *HI* (04/08/18 4:31 PM) Basophils [0.0-1.0 0.5 % %] (04/08/18 4:31 PM) Neutrophils # 3.5 K/CMM [1.5-8.1 K/CMM] (04/08/18 4:31 PM) Lymphocytes # 1.5 K/CMM [1.0-5.5 K/CMM] (04/08/18 4:31 PM) Monocytes # [0.0-0.8 0.4 K/CMM K/CMM] (04/08/18 4:31 PM) Eosinophils # 0.3 K/CMM [0.0-0.5 K/CMM] (04/08/18 4:31 PM) PT [12.0-14.7 12.9 seconds seconds] (04/08/18 4:31 PM) INR [0.85-1.17] 0.97 (04/08/18 4:31 PM) PTT [22.9-35.8 33.5 seconds seconds] (04/08/18 4:31 PM) Immunizations Given and Recorded Vaccine Date Status Refusal Reason influenza virus vaccine, inactivated 08/02/18 Given pneumococcal 23-valent vaccine 05/27/15 Given Procedures Procedure Date Related Diagnosis Body Site Status Abdominal hysterectomy Completed 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 Type: Marijuana. IV [...] Reg Smoking Cessation Counseling No entered on: 09/08/18 Assessment and Plan No data available for this section
--- OUTSIDE RECORDS SUMMARY | 2019-05-04 10:40 | XMS REPORT | Summary of Care ---
Author Author [facility] Organization [facility] Address Unknown Phone Unavailable Encounter CHUYITA Thornton(ARIC) [id number] Date(s): 02/23/19 - 02/26/19 [facility] [id number] [place] [address]- Discharge Disposition: Home or Self Care Attending Physician: Sheron Irvin MD Admitting Physician: Sheron Irvin MD Vital Signs 1 2 3 Most recent to oldest [Reference Range]: 162.56 cm (02/24/19 9:00 AM) 162.56 cm (02/23/19 8:13 PM) 162.56 cm (02/23/19 12:05 PM) Height 98 DegF (02/26/19 8:00 AM) 97.5 DegF (02/25/19 11:31 PM) 98.5 DegF (02/25/19 4:31 PM) Temperature Oral [96.4-99.1 DegF] 96/57 mmHg (02/26/19 8:00 AM) 140/72 mmHg (02/25/19 11:31 PM) 105/71 mmHg (02/25/19 8:45 PM) Blood Pressure [90-140/60-90 mmHg] 18 BRMIN (02/26/19 8:00 AM) 16 BRMIN (02/26/19 6:55 AM) 16 BRMIN (02/25/19 11:31 PM) Respiratory Rate [14-20 BRMIN] 77 bpm (02/26/19 8:00 AM) 71 bpm (02/25/19 11:31 PM) 61 bpm (02/25/19 8:45 PM) Peripheral Pulse Rate [60-100 bpm] 77.386 kg (02/25/19 10:31 AM) 77.273 kg (02/24/19 9:00 AM) 77.273 kg (02/23/19 8:13 PM) Weight 29.24 m2 (02/24/19 9:00 AM) 29.24 m2 (02/23/19 8:13 PM) 29.24 m2 (02/23/19 12:05 PM) Body Mass Index Problem List Condition Effective [...] Adverse Reactions, Alerts Substance Reaction Severity Status Braggs Active Medications albuterol 0.083% inhalation solution 2.49 mg, 3 mL, Route: NEB, Drug Form: SOLN, Dosing Weight 77.273, kg, RQ6H, PRN Wheezing, Start date: 02/23/19 22:14:00 CDT, Duration: 30 day, Stop date: 22:13:00 CDT, 0 Notes: SEE RT DOCUMENTATION (Same as: Myrtle) Start Date: 02/23/19 Stop Date: 02/26/19 Status: Discontinued aspirin 325 mg, 1 tab, Route: PO, Drug form: TAB, Daily, Dosing Weight 77.273, kg, Start date: 02/24/19 9:00:00 CDT, Duration: 30 day, Stop date: 03/25/19 9:00:00 CDT, 0 Notes: Take with food. Start Date: 02/24/19 Stop Date: 02/26/19 Status: Discontinued aspirin 325 mg, 1 tab, Route: PO, Drug form: TAB, ONCE, Dosing Weight 77.273, kg, Priori ty: STAT, Start date: 02/23/19 16:37:00 CDT, Stop date: 02/23/19 16:37:00 CDT, 0 Notes: Take with food. Start Date: 02/23/19 Stop Date: 02/23/19 Status: Completed Combivent Respimat 1 puff, INHALATION, QID, 0 Refill(s) Start Date: 02/23/19 Status: Ordered Combivent Respimat CFC free 100 mcg-20 mcg/inh inhalation aerosol 1 puff, Route: INHALATION, Drug Form: AERO, Dosing Weight 77.273, kg, QID, Start date: 02/24/19 9:00:00 CDT, Duration: 30 day, Stop date: 03/25/19 21:00:00 CDT Start Date: 02/24/19 Stop Date: 02/23/19 Status: Deleted Dextrose 50% Syringe 25 gm, 50 mL, Route: IVP, Drug Form: INJ, Dosing Weight 77.273, kg, PRN, PRN Blo od Glucose Results, Start date: 02/24/19 0:26:00 CDT, Duration: 30 day, Stop megan e: 03/26/19 0:25:00 CDT, 0 Start Date: 02/24/19 Stop Date: 02/26/19 Status: Discontinued Dextrose 50% Syringe 12.5 gm, 25 mL, Route: IVP, Drug Form: INJ, Dosing Weight 77.273, kg, PRN, PRN B lood Glucose Results, Start date: 02/24/19 0:26:00 CDT, Duration: 30 day, Stop d ate: 03/26/19 0:25:00 CDT, 0 Start Date: 02/24/19 Stop Date: 02/26/19 Status: Discontinued DuoNeb inhalation solution 3 mL, Route: NEB, Drug Form: SOLN, RQID, Start date: 02/24/19 7:00:00 CDT, Durat ion: 30 day, Stop date: 03/25/19 19:00:00 CDT, 0 Notes: (Same as: Duoneb) Start Date: 02/24/19 Stop Date: 02/26/19 Status: Discontinued glucagon 1 mg, Route: IM, Drug form: PDR/INJ, PRN, Dosing Weight 77.273, kg, PRN Blood Gl ucose Results, Start date: 02/24/19 0:26:00 CDT, Duration: 30 day, Stop date: 0:25:00 CDT, 0 Start Date: 02/24/19 Stop Date: 02/26/19 Status: Discontinued insulin glargine 50 unit, 0.5 mL, Route: SUB-Q, Drug form: SOLN, BID, Start date: 02/24/19 9:00:0 0 CDT, Duration: 30 day, Stop date: 03/25/19 21:00:00 CDT, 0 Notes: (Same as: Lantus)Do not hold insulin without contacting prescriberWASTE: F/P - Black; E - Municipal Trash Bin"single patient use only"Stable for 28 days at room temperature Expires in days from Date Start Date: 02/24/19 Stop Date: 02/26/19 Status: Discontinued insulin lispro 2 unit, 0.02 mL, Route: SUB-Q, Drug form: SOLN, TID-Before Meals, Dosing Weight 77.273, kg, PRN Blood Glucose Results, Start date: 02/24/19 0:26:00 CDT, Duratio n: 30 day, Stop date: 03/26/19 0:25:00 CDT, 0 Notes: (Same as: Humalog) Roll in palms of hands gently; Do not shake vigorously . WASTE: F/P - Black; E - Municipal Trash BinStable for 28 days at room tempera ture.Expires in days from Date Start Date: 02/24/19 Stop Date: 02/26/19 Status: Discontinued insulin lispro 4 unit, 0.04 mL, Route: SUB-Q, Drug form: SOLN, TID-Before Meals, Dosing Weight 77.273, kg, PRN Blood Glucose Results, Start date: 02/24/19 0:26:00 CDT, Duratio n: 30 day, Stop date: 03/26/19 0:25:00 CDT, 0 Notes: (Same as: Humalog) Roll in palms of hands gently; Do not shake vigorously . WASTE: F/P - Black; E - Municipal Trash BinStable for 28 days at room tempera [facility].Expires in days from Date Start Date: 02/24/19 Stop Date: 02/26/19 Status: Discontinued insulin lispro 6 unit, 0.06 mL, Route: SUB-Q, Drug form: SOLN, TID-Before Meals, Dosing Weight 77.273, kg, PRN Blood Glucose Results, Start date: 02/24/19 0:26:00 CDT, Duratio n: 30 day, Stop date: 03/26/19 0:25:00 CDT, 0 Notes: (Same as: Humalog) Roll in palms of hands gently; Do not shake vigorously . WASTE: F/P - Black; E - Municipal Trash BinStable for 28 days at room [facility].Expires in days from Date Start Date: 02/24/19 Stop Date: 02/26/19 Status: Discontinued insulin lispro 8 unit, 0.08 mL, Route: SUB-Q, Drug form: SOLN, TID-Before Meals, Dosing Weight 77.273, kg, PRN Blood Glucose Results, Start date: 02/24/19 0:26:00 CDT, Duratio n: 30 day, Stop date: 03/26/19 0:25:00 CDT, 0 Notes: (Same as: Humalog) Roll in palms of hands gently; Do not shake vigorously . WASTE: F/P - Black; E - Municipal Trash BinStable for 28 days at room [facility].Expires in days from Date Start Date: 02/24/19 Stop Date: 02/26/19 Status: Discontinued insulin lispro 1 unit, 0.01 mL, Route: SUB-Q, Drug form: SOLN, Bedtime, Dosing Weight 77.273, k g, PRN Blood Glucose Results, Start date: 02/24/19 0:26:00 CDT, Duration: 30 day , Stop date: 03/26/19 0:25:00 CDT, 0 Notes: (Same as: Humalog) Roll in palms of hands gently; Do not shake vigorously . WASTE: F/P - Black; E - Municipal Trash BinStable for 28 days at room [facility].Expires in days from Date Start Date: 02/24/19 Stop Date: 02/26/19 Status: Discontinued insulin lispro 2 unit, 0.02 mL, Route: SUB-Q, Drug form: SOLN, Bedtime, Dosing Weight 77.273, k g, PRN Blood Glucose Results, Start date: 02/24/19 0:26:00 CDT, Duration: 30 day , Stop date: 03/26/19 0:25:00 CDT, 0 Notes: (Same as: Humalog) Roll in palms of hands gently; Do not shake vigorously . WASTE: F/P - Black; E - Municipal Tr[facility] BinStable [facility].Expires in days from Date Start Date: 02/24/19 Stop Date: 02/26/19 Status: Discontinued insulin lispro 3 unit, 0.03 mL, Route: SUB-Q, Drug form: SOLN, Bedtime, Dosing Weight 77.273, k g, PRN Blood Glucose Results, Start date: 02/24/19 0:26:00 CDT, Duration: 30 day , Stop date: 03/26/19 0:25:00 CDT, 0 Notes: (Same as: Humalog) Roll in palms of hands gently; Do not shake vigorously . WASTE: F/P - Black; E - Municipal Trash BinStable for 28 days at room [facility].Expires in days from Date Start Date: 02/24/19 Stop Date: 02/26/19 Status: Discontinued insulin lispro 4 unit, 0.04 mL, Route: SUB-Q, Drug form: SOLN, Bedtime, Dosing Weight 77.273, k g, PRN Blood Glucose Results, Start date: 02/24/19 0:26:00 CDT, Duration: 30 day , Stop date: 03/26/19 0:25:00 CDT, 0 Notes: (Same as: Humalog) Roll in palms of hands gently; Do not shake vigorously . WASTE: F/P - Black; E - Municipal Trash BinStable for 28 days at room [facility].Expires in days from Date Start Date: 02/24/19 Stop Date: 02/26/19 Status: Discontinued insulin lispro 10 unit, 0.1 mL, Route: SUB-Q, Drug form: SOLN, TID-Before Meals, Dosing Weight 77.273, kg, PRN Blood Glucose Results, Start date: 02/24/19 0:26:00 CDT, Duratio n: 30 day, Stop date: 03/26/19 0:25:00 CDT, 0 Notes: (Same as: Humalog) Roll in palms of hands gently; Do not shake vigorously . WASTE: F/P - Black; E - Municipal Trash BinStable for 28 days at room [facility].Expires in days from Date Start Date: 02/24/19 Stop Date: 02/26/19 Status: Discontinued Insulin regular 10 unit, Route: IVP, ONCE, Dosing Weight 77.273, kg, Priority: STAT, Start date: 02/23/19 15:25:00 CDT, Stop date: 02/23/19 15:25:00 CDT Start Date: 02/23/19 Stop Date: 02/23/19 Status: Completed Levemir Route: SUB-Q, Drug form: SOLN, BID, Dosing Weight 77.273, kg, Start date: 9:00:00 CDT, Duration: 30 day, Stop date: 03/25/19 17:00:00 CDT Start Date: 02/24/19 Stop Date: 02/23/19 Status: Deleted Levemir 100 units/mL 50 units, SUB-Q, BID, # 10 ml, 0 Refill(s) Start Date: 02/23/19 Status: Ordered metoprolol extended release 100 mg, 1 tab, Route: PO, Drug form: ERTAB, Daily, Start date: 02/24/19 9:00:00 CDT, Duration: 30 day, Stop date: 03/25/19 9:00:00 CDT, 0 Notes: (Same as: Toprol XL) May split tab, but do not crush. Start Date: 02/24/19 Stop Date: 02/26/19 Status: Discontinued morphine Sulfate 4 mg, Route: IVP, ONCE, Dosing Weight 77.273, kg, Priority: STAT, Start date: 12:54:00 CDT, Stop date: 02/23/19 12:54:00 CDT Start Date: 02/23/19 Stop Date: 02/23/19 Status: Completed Omnipaque 300 injectable solution 100 mL, Route: IVP, Drug Form: SOLN, Dosing Weight 77.386, kg, ONCALL, GFR > 45 mL/min, Start date: 02/25/19 23:00:00 CDT, Duration: 1 doses or times, 0 Notes: (Same as:Omnipaque 300).WASTE: F/P - Black; E - [facility] Start Date: 02/25/19 Stop Date: 02/26/19 Status: Completed ondansetron 4 mg, Route: IVP, Drug form: INJ, ONCE, Dosing Weight 77.273, kg, Priority: STAT , Start date: 02/23/19 12:54:00 CDT, Stop date: 02/23/19 12:54:00 CDT Start Date: 02/23/19 Stop Date: 02/23/19 Status: Completed pantoprazole 40 mg, 1 tab, Route: PO, Drug form: ECTAB, BID-Before Meals, Dosing Weight 77.27 3, kg, Start date: 02/24/19 16:30:00 CDT, Duration: 30 day, Stop date: 03/26/19 7:30:00 CDT, 0 Notes: Tablet should not be chewed or crushed.(Same as: Protonix) Start Date: 02/24/19 Stop Date: 02/26/19 Status: Discontinued pantoprazole 40 mg oral enteric coated tablet 40 mg=1 tab, PO, BID-Before Meals, 0 Refill(s) Start Date: 02/25/19 Status: Ordered pregabalin 150 mg, 2 cap, Route: PO, Drug form: CAP, BID, Dosing Weight 77.273, kg, Start d ate: 02/24/19 9:00:00 CDT, Duration: 30 day, Stop date: 03/25/19 17:00:00 CDT, 0 Notes: (Same as: Lyrica) Start Date: 02/24/19 Stop Date: 02/26/19 Status: Discontinued QUEtiapine 25 mg, 1 tab, Route: PO, Drug form: TAB, BID, Dosing Weight 77.273, kg, Start da te: 02/24/19 9:00:00 CDT, Duration: 30 day, Stop date: 03/25/19 17:00:00 CDT, 0 Notes: (Same as: SEROquel) Start Date: 02/24/19 Stop Date: 02/25/19 Status: Discontinued Sodium Chloride 0.9% (Bolus) IV 2,318.19 mL, 2,000 ml/hr, Route: IV, ONCE, Priority: STAT, Dosing Weight 77.273 kg, Start date: 02/23/19 12:53:00 CDT, Stop date: 02/23/19 12:53:00 CDT, Sepsis dose. Start Date: 02/23/19 Stop Date: 02/23/19 Status: Completed venlafaxine 75 mg, 2 cap, Route: PO, Drug form: ERCAP, Daily, Dosing Weight 77.273, kg, Star t date: 02/24/19 9:00:00 CDT, Duration: 30 day, Stop date: 03/25/19 9:00:00 CDT, 0 Notes: Do not crush, or chew. Contents of capsule may be sprinkled on a spoonfu l of applesauce and swallowed immediately without chewing; followed with a glass of water to ensure complete swallowing of the pellets.(Same As: Effexor XR) Start Date: 02/24/19 Stop Date: 02/26/19 Status: Discontinued Results 1 2 3 Most recent to oldest [Reference Range]: 5.3 K/CMM (02/23/19 12:52 PM) Neutrophils # [1.5-8.1 K/CMM] 2.1 K/CMM (02/23/19 12:52 PM) Lymphocytes # [1.0-5.5 K/CMM] 0.3 K/CMM (02/23/19 12:52 PM) Monocytes # [0.0-0.8 K/CMM] 0.2 K/CMM (02/23/19 12:52 PM) Eosinophils # [0.0-0.5 K/CMM] 0.1 K/CMM (02/23/19 12:52 PM) Basophils # [0.0-0.2 K/CMM] 52 pg/mL (02/23/19 12:52 PM) BNP [<=100 pg/mL] Normal (02/23/19 12:52 PM) Plt Morph [Normal] 0.24 mmol/L (02/23/19 12:52 PM) Ketone Quantitative [<=0.27 mmol/L] 46 mL/min/1.73m2 1 *NA* (02/24/19 12:27 PM) 45 mL/min/1.73m2 2 *NA* (02/23/19 5:18 PM) 35 mL/min/1.73m2 3 *NA* (02/23/19 12:52 PM) eGFR See Note (02/23/19 3:48 PM) UDS Note 0.7 (02/24/19 12:27 PM) 0.7 (02/23/19 12:52 PM) A/G Ratio [0.7-1.6] 3.7 ng/mL (02/24/19 8:39 PM) AFP TM [0.0-11.0 ng/mL] 2.6 g/dL *LOW* (02/24/19 12:27 PM) 3.1 g/dL *LOW* (02/23/19 12:52 PM) Albumin Lvl [3.5-5.0 g/dL] 142 unit/L *HI* (02/24/19 12:27 PM) 161 unit/L *HI* (02/23/19 12:52 PM) Alk Phos [39-136 unit/L] 41 unit/L (02/24/19 12:27 PM) 33 unit/L (02/23/19 12:52 PM) ALT [0-65 unit/L] Negative *NA* (02/23/19 3:48 PM) U Amph Scr [Negative] 16.0 mEq/L (02/24/19 12:27 PM) 11.5 mEq/L (02/23/19 5:18 PM) 17.0 mEq/L (02/23/19 12:52 PM) AGAP [10.0-20.0 mEq/L] 42 unit/L *HI* (02/24/19 12:27 PM) 36 unit/L (02/23/19 12:52 PM) AST [0-37 unit/L] 19 (02/24/19 12:27 PM) 21 (02/23/19 12:52 PM) B/C Ratio [6-25] Negative *NA* (02/23/19 3:48 PM) U Ryanne Scr [Negative] 1.0 % (02/23/19 12:52 PM) Basophils [0.0-1.0 %] Negative *NA* (02/23/19 3:48 PM) U Benzodiaz Scr [Negative] 25 mg/dL *HI* (02/24/19 12:27 PM) 30 mg/dL *HI* (02/23/19 5:18 PM) 35 mg/dL *HI* (02/23/19 12:52 PM) BUN [7-22 mg/dL] 8.2 mg/dL *LOW* (02/24/19 12:27 PM) 7.7 mg/dL *LOW* (02/23/19 5:18 PM) 8.4 mg/dL *LOW* (02/23/19 12:52 PM) Calcium Lvl [8.5-10.5 mg/dL] 134 unit/L (02/23/19 12:52 PM) Total CK [12-191 unit/L] 103 mEq/L (02/24/19 12:27 PM) 110 mEq/L *HI* (02/23/19 5:18 PM) 100 mEq/L (02/23/19 12:52 PM) Chloride Lvl [95-109 mEq/L] 20 mEq/L *LOW* (02/24/19 12:27 PM) 22 mEq/L *LOW* (02/23/19 5:18 PM) 20 mEq/L *LOW* (02/23/19 12:52 PM) CO2 [24-32 mEq/L] Negative *NA* (02/23/19 3:48 PM) U Cocaine Scr [Negative] 1.34 mg/dL (02/24/19 12:27 PM) 1.35 mg/dL (02/23/19 5:18 PM) 1.69 mg/dL *HI* (02/23/19 12:52 PM) Creatinine Lvl [0.50-1.40 mg/dL] 2.5 % (02/23/19 12:52 PM) Eosinophils [0.0-4.0 %] 3.7 g/dL (02/24/19 12:27 PM) 4.6 g/dL *HI* (02/23/19 12:52 PM) Globulin [2.7-4.2 g/dL] 395 mg/dL *HI* (02/24/19 12:27 PM) 224 mg/dL *HI* (02/23/19 5:18 PM) 467 mg/dL 4 *CRIT* (02/23/19 12:52 PM) Glucose Lvl [70-99 mg/dL] Negative *NA* (02/24/19 8:39 PM) Hep A IgM [Negative] Negative *NA* (02/24/19 8:39 PM) Hep B Core IgM [Negative] Negative *NA* (02/24/19 8:39 PM) Hep Bs Ag [Negative] 37.1 % (02/23/19 12:52 PM) Hct [36.0-48.0 %] Positive *ABN* (02/24/19 8:39 PM) Hep C Ab 12.2 g/dL (02/23/19 12:52 PM) Hgb [12.0-16.0 g/dL] 0.99 (02/23/19 12:52 PM) INR [0.85-1.17] 5.0 mEq/L (02/24/19 12:27 PM) 4.5 mEq/L (02/23/19 5:18 PM) 6.0 mEq/L *HI* (02/23/19 12:52 PM) Potassium Lvl [3.5-5.1 mEq/L] 1.6 mMol/L (02/23/19 12:52 PM) Lactic Acid Lvl [0.5-2.2 mMol/L] 321 unit/L (02/24/19 12:27 PM) 470 unit/L *HI* (02/24/19 3:23 AM) 514 unit/L *HI* (02/23/19 1:34 PM) Lipase Lvl [73-393 unit/L] 25.9 % (02/23/19 12:52 PM) Lymphocytes [20.0-40.0 %] 27.2 pg (02/23/19 12:52 PM) MCH [27.0-31.0 pg] 32.9 g/dL (02/23/19 12:52 PM) MCHC [32.0-36.0 g/dL] 82.7 fL (02/23/19 12:52 PM) MCV [80.0-98.0 fL] 2.2 mg/dL (02/23/19 12:52 PM) Magnesium Lvl [1.8-2.4 mg/dL] 3.7 % (02/23/19 12:52 PM) Monocytes [2.0-12.0 %] 7.6 fL (02/23/19 12:52 PM) MPV [7.4-10.4 fL] 134 mEq/L *LOW* (02/24/19 12:27 PM) 139 mEq/L (02/23/19 5:18 PM) 131 mEq/L *LOW* (02/23/19 12:52 PM) Sodium Lvl [135-145 mEq/L] Positive *ABN* (02/23/19 3:48 PM) U Opiate Scr [Negative] Negative *NA* (02/23/19 3:48 PM) U Phencyclidine Scr [Negative] 3.2 mg/dL (02/23/19 12:52 PM) Phosphorus [2.5-4.5 mg/dL] 271 K/CMM (02/23/19 12:52 PM) Platelet [133-450 K/CMM] 66.9 % (02/23/19 12:52 PM) Segs [45.0-75.0 %] 6.3 g/dL *LOW* (02/24/19 12:27 PM) 7.7 g/dL (02/23/19 12:52 PM) Total Protein [6.4-8.4 g/dL] 12.9 seconds (02/23/19 12:52 PM) PT [12.0-14.7 seconds] 4.49 M/CMM (02/23/19 12:52 PM) RBC [4.20-5.40 M/CMM] Normal (02/23/19 12:52 PM) RBC Morph [Normal] 13.9 % (02/23/19 12:52 PM) RDW [11.5-14.5 %] 0.2 mg/dL (02/24/19 12:27 PM) 0.4 mg/dL (02/23/19 12:52 PM) Bili Total [0.2-1.3 mg/dL] Positive *ABN* (02/23/19 3:48 PM) U Cannab Scr [Negative] <0.02 ng/mL (02/24/19 3:23 AM) <0.02 ng/mL (02/23/19 12:52 PM) Troponin-I [0.00-0.40 ng/mL] Negative *NA* (02/23/19 3:48 PM) UA Bili [Negative] Small *ABN* (02/23/19 3:48 PM) UA Blood [Negative] Ltyellow *NA* (02/23/19 3:48 PM) UA Color 500 mg/dL *ABN* (02/23/19 3:48 PM) UA Glucose [Negative mg/dL] Negative mg/dL *NA* (02/23/19 3:48 PM) UA Ketones [Negative mg/dL] Negative (02/23/19 3:48 PM) UA Leuk Est [Negative] Negative (02/23/19 3:48 PM) UA Nitrite [Negative] 6.0 (02/23/19 3:48 PM) UA pH [5.0-8.0] 30 mg/dL *ABN* (02/23/19 3:48 PM) UA Protein [Negative mg/dL] 4 /HPF *HI* (02/23/19 3:48 PM) UA RBC [0-2 /HPF] 1.025 (02/23/19 3:48 PM) UA Spec Grav [<=1.030] Occasional /LPF *NA* (02/23/19 3:48 PM) UA Sq Epi [Few /LPF] Clear (02/23/19 3:48 PM) UA Turbidity [Clear] <=1.0 mg/dL *NA* (02/23/19 3:48 PM) UA Urobilinogen [0.1-1.0 mg/dL] 8.0 K/CMM (02/23/19 12:52 PM) WBC [3.7-10.4 K/CMM] Not Detected (02/24/19 12:40 PM) HCV RNA VirLoad <1.2 IU/mL *NA* (02/24/19 12:40 PM) HCV RNA Log10 1Result Comment: The eGFR is calculated using [...] be mul tiplied by the estimated BMI. 4Result Comment: Critical Result(s) called to Carmen Viveros _ at 02/23/2019 13:28 _ by jack_. Read back OK. Immunizations Given and Recorded Vaccine Date Status [...] Smoking Cessation Counseling No entered on: 02/23/19 Assessment and Plan Extracted from: Title: Clinical Document Author: George Saha Date: 02/26/19 Yash Progress Note - Daily [facility] Completed: Jan, 11:16 by George Saha RM: 248 - 1P, SE [id number] Carroll [id number] (: 1965) F Attending: Sheron Irvin MDPhone: Service: Internal Medicine Reason for Admission: ACS (ACUTE CORONARY SYNDROME) Working DRG: Code status: None Specified=FULL CODECurrent diet: Isolation: Contact Allergies: Braggs SUBJECTIVE no new events no n/v no abd pain OBJECTIVE 24hr Labs 02/26 1036 POC Performing LocatioSee Note Glucose [id number] H 02/26 0711 POC Performing LocatioSee Note Glucose [id number] H 02/25 2121 POC Performing LocatioSee Note Glucose POC80 02/25 2039 POC Performing LocatioSee Note Glucose POC57 L 02/25 1724 POC Performing LocatioSee Note Glucose POC75 02/25 1217 POC Performing LocatioSee Note Glucose RBM787 H 02/24 2039 Hep C AbPositive 02/24 1240 HCV RNA VirLoadNot Detected HCV RNA Log10<1.2 Dale still necessary (Yes/No): Line still necessary (Yes/No): VitalsTmp(F)[id number] 02/26 08:[id number]/[id number]--- 02/26 06:55 1695--- 02/25 23:3197.487384/130340--- 02/25 21:49 1698 21% 02/25 20:[id number]/699481--- 24 Hr Tmax: 98.5F (36.94c) at 02/25 16:31Vital Signs are the last 5 in the past 48 hours. DateWt(kg)Wt(lb)Ht(cm)Ht(in)Method 02/25 77.39 170.25Estimated 02/24 77.27 170.84511.56 64.00Estimated 02/23 (initial) 77.27 170.00Estimated 62.56 64.00Stated I&ORecordInOutBal 01/2824hr Tot 100 0 100 01/2724hr Tot 0 0 0 Medications (20) Active [...] have examined the patient with the Physician Stitch Bonding Machine Drawer In and confirmed the essential components of history, physical examination, diagnosis and treatment plan. I agree with the patient's care as documented by the Physician Stitch Bonding Machine Drawer In.. Extracted from: Title: Cardiology Consultation Author: Sebastian Vaz MD Date: 02/24/19 [facility] Consult Note Attending: Sheron Irvin MDPhone: Service: Internal Medicine Code status: None Specified=FULL CODE Reason for Admission: ACS Working DRG: Isolation: Contact Consulting Physicians: Gage Bonilla MDOffice: Service: Cardiology Sheron Irvin MDOffice: Service: Medicine Felice Worrell MDOffice: Service: Gastroenterology Sebastian Vaz MDOffice: Service: Cardiology Veronica Genao MDOffice: Service: Infectious Disease, Medicine Reason for Consultation: [...] concerns: No. Cessation Education Provided: Yes. Exam: VitalsTmp(F)[id number] 02/24 19:43 2095--- 02/24 19:[id number]/080896--- 02/24 15:1798.266171/503650--- 02/24 12:2198.360780/812533--- 02/24 08:1097.798383/438600--- 24 Hr Tmax: 98.5F (36.94c) at 02/23 23:19Vital Signs are the last 5 in the past 48 hours. DateWt(kg)Wt(lb)Ht(cm)Ht(in)Method 02/24 77.27 170.43972.56 64.00Estimated 02/23 (initial) 77.27 170.00Estimated 62.56 64.00Stated General: well developed. well nourished. obese. Cardiovascular: PMI non displaced. regular. S1 and S2. No murmurs, rubs or gallops. Respiratory: No respiratory distress. Clear to auscultation bilaterally. Abdomen: soft, non-tender, no masses. No hepato- or splenomegaly. Neuro/Psych: Alert and oriented to person, place and time. Normal affect. Allergies: Braggs Medications (26) Active Scheduled Meds (8): 02/24/19 [...] None Labs (Last four charted values) WBC 8.0(BARRERA 25) Hgb 12.2(BARRERA 25) Hct 37.1(BARRERA 25) Plt 271(FEB 23) Na L 134(BARRERA 26)139(BARRERA 25)L 131(BARRERA 25) K 5.0(BARRERA 26)4.5(BARRERA 25)H 6.0(BARRERA 25) CO2 L 20(BARRERA 26)L 22(BARRERA 25)L 20(BARRERA 25) Cl 103(BARRERA 26)H 110(BARRERA 25)100(BARRERA 25) Cr 1.34(BARRERA 26)1.35(BARRERA 25)H 1.69(BARRERA 25) BUN H 25(BARRERA 26)H 30(BARRERA 25)H 35(BARRERA 25) Glucose Random H 395(BARRERA 26)H 224(BARRERA 25)C 467(BARRERA 25) Mg 2.2(BARRERA 25) Phos 3.2(BARRERA 25) Ca L 8.2(FEB 24)L 7.7(BARRERA 25)L 8.4(FEB 23) PT 12.9(FEB 23) INR 0.99(FEB 23) Troponin <0.02(FEB 24)<0.02(FEB 23) Total CK 134(FEB 23) Assessment: Acute ischemic heart disease, unspecified (I24.9) Hyperglycemia, unspecified (R73.9) Hyperkalemia (E87.5) Acute kidney failure, unspecified (N17.9) Plan: -echo and stress pending -ruled out for AMI Thank you for involving us in this patient's care.
--- OUTSIDE RECORDS SUMMARY | 2019-05-04 10:40 | XMS REPORT | Summary of Care ---
Author Author [facility] Organization [facility] Address Unknown Phone Unavailable Encounter CHUYITA Thornton(ARIC) [id number] Date(s): 08/10/18 - 08/12/18 [facility] [address] [place] [address]- Encounter Diagnosis Hypovolemia (Final) - 08/18/18 Hyperkalemia (Final) - Type 2 diabetes mellitus without complications (Final) - Atherosclerotic heart disease of minto coronary artery without angina pectoris (Final) - Irritable bowel syndrome without diarrhea (Final) - Major depressive disorder, single episode, unspecified (Final) - Hypertensive heart disease with heart failure (Final) - Heart failure, unspecified (Final) - Orthostatic hypotension (Final) - Chondrocostal junction syndrome [Tietze] (Final) - Unspecified viral hepatitis C without hepatic coma (Final) - Hyperlipidemia, unspecified (Final) - Alcoholic cirrhosis of liver without ascites (Final) - Discharge Disposition: Home Care with Home Health Attending Physician: Jayy Rubin MD Admitting Physician: Jayy Rubin MD Vital Signs 1 2 3 Most recent to oldest [Reference Range]: 162.56 cm (08/10/18 5:00 PM) 167.64 cm (08/10/18 9:58 AM) Height 76.9 kg (08/12/18 5:00 AM) 76.2 kg (08/11/18 5:00 AM) Current Weight 97.9 DegF (08/12/18 1:48 PM) 97.1 DegF (08/12/18 12:20 PM) 97.9 DegF (08/12/18 7:14 AM) Temperature Oral [96.4-99.1 DegF] 126/79 mmHg (08/12/18 1:48 PM) 129/79 mmHg (08/12/18 12:20 PM) 137/88 mmHg (08/12/18 7:14 AM) Blood Pressure [90-140/60-90 mmHg] 18 BRMIN (08/12/18 1:48 PM) 18 BRMIN (08/12/18 12:20 PM) 18 BRMIN (08/12/18 7:14 AM) Respiratory Rate [14-20 BRMIN] 83 bpm (08/12/18 1:48 PM) 90 bpm (08/12/18 12:20 PM) 79 bpm (08/12/18 7:14 AM) Peripheral Pulse Rate [60-100 bpm] 77.273 kg (08/10/18 5:00 PM) 68.182 kg (08/10/18 9:58 AM) Weight 29.24 m2 (08/10/18 5:00 PM) 24.26 m2 (08/10/18 9:58 AM) Body Mass Index Problem List Condition [...] Adverse Reactions, Alerts Substance Reaction Severity Status [place] Active Medications acetaminophen 650 mg, 2 tab, Route: PO, Drug form: TAB, Q4H, Dosing Weight 68.182, kg, PRN For Temp > 100.4 F, Start date: 08/10/18 11:47:00 [employer]IOR LOSS [employer]IST, Duration: 30 day, Stop date: 09/09/18 11:46:00 S[employer]IOR LOSS CONTR[employer] SPECIALIST Notes: Do not exceed 4 gm/day. (Same as: Tylenol) Start Date: 08/10/18 Stop Date: 08/12/18 Status: Discontinued aspirin 81 mg tablet, chewable 81 mg, 1 tab, Route: PO, Drug form: CHEWTAB, Daily, Dosing Weight 68.182, kg, St art date: 08/11/18 9:00:00 SENIOR LOSS CONTROL SPECIALIST, Duration: 30 day, Stop date: 09/09/18 9:00:00 CS T Notes: Take with food. Start Date: 08/11/18 Stop Date: 08/12/18 Status: Discontinued bisacodyl 10 mg, 1 supp, Route: NJ, Drug form: SUPP, Daily, Dosing Weight 68.182, kg, PRN Constipation, Start date: 08/10/18 11:47:00 SENIOR LOSS CONTROL SPECIALIST, Duration: 30 day, Stop date: 11:46:00 SENIOR LOSS CONTROL SPECIALIST Notes: (Same As: Dulcolax, [place]-Lax) Start Date: 08/10/18 Stop Date: 08/12/18 Status: Discontinued calcium gluconate 2 gm, 100 mL, Route: IVPB, Drug form: INJ, PRN, Dosing Weight 68.182, kg, PRN Ab normal Lab Result, For NON-ICU Patients Only., Start date: 08/10/18 11:51:00 SENIOR LOSS CONTROL SPECIALIST , Duration: 30 day, Stop date: 09/09/18 11:50:00 SENIOR LOSS CONTROL SPECIALIST Notes: WASTE: F/P - Sink; E - Municipal Trash Bin Start Date: 08/10/18 Stop Date: 08/12/18 Status: Discontinued calcium gluconate + Sodium Chloride 0.9% IV 150 mL 3 gm, 30 mL, Route: IVPB, PRN, Dosing Weight 68.182, kg, PRN Abnormal Lab Result , For NON-ICU Patients Only., Start date: 08/10/18 11:51:00 SENIOR LOSS CONTROL SPECIALIST, Duration: 30 da y, Stop date: 09/09/18 11:50:00 SENIOR LOSS CONTROL SPECIALIST Notes: WASTE: F/P - Sink; E - Municipal Trash Bin Start Date: 08/10/18 Stop Date: 08/12/18 Status: Discontinued Dextrose 50% Syringe 25 gm, 50 mL, Route: IVP, Drug Form: INJ, Dosing Weight 68.182, kg, PRN, PRN Blo od Glucose Results, Start date: 08/10/18 11:52:00 SENIOR LOSS CONTR[employer] SPECIALIST, Duration: 30 day, Stop da te: 09/09/18 11:51:00 SENIOR LOSS CONTROL SPECIALIST Start Date: 08/10/18 Stop Date: 08/12/18 Status: Discontinued Dextrose 50% Syringe 12.5 gm, 25 mL, Route: IVP, Drug Form: INJ, Dosing Weight 68.182, kg, PRN, PRN B lood Glucose Results, Start date: 08/10/18 11:52:00 SENIOR LOSS CONTROL SPECIALIST, Duration: 30 day, Stop date: 09/09/18 11:51:00 SENIOR LOSS CONTROL SPECIALIST Start Date: 08/10/18 Stop Date: 08/12/18 Status: Discontinued Dextrose 50% Syringe 25 mL, Route: IVP, Dosing Weight 68.182, kg, PRN, PRN Blood Glucose Results, Sta rt date: 08/10/18 11:47:00 SENIOR LOSS CONTROL SPECIALIST, Duration: 30 day, Stop date: 09/09/18 11:46:[address] Start Date: 08/10/18 Stop Date: 08/10/18 Status: Deleted Dextrose 50% Syringe 50 mL, Route: IVP, Dosing Weight 68.182, kg, PRN, PRN Blood Glucose Results, Sta rt date: 08/10/18 11:47:00 SENIOR LOSS CONTROL SPECIALIST, Duration: 30 day, Stop date: 09/09/18 11:46:[address] Start Date: 08/10/18 Stop Date: 08/10/18 Status: Deleted glucagon 1 mg, Route: IM, Drug form: PDR/INJ, PRN, Dosing Weight 68.182, kg, PRN Blood Gl ucose Results, Start date: 08/10/18 11:52:00 SENIOR LOSS CONTROL SPECIALIST, Duration: 30 day, Stop date: 0 09/09/18 11:51:00 SENIOR LOSS CONTROL SPECIALIST Start Date: 08/10/18 Stop Date: 08/12/18 Status: Discontinued glucagon 1 mg, Route: IM, PRN, Dosing Weight 68.182, kg, PRN Blood Glucose Results, Start date: 08/10/18 11:47:00 SENIOR LOSS CONTROL SPECIALIST, Duration: 30 day, Stop date: 09/09/18 11:46:00 SENIOR LOSS CONTROL SPECIALIST Start Date: 08/10/18 Stop Date: 08/10/18 Status: Deleted heparin 5,000 unit, 1 mL, Route: SUB-Q, Drug form: INJ, Q12H, Dosing Weight 68.182, kg, Start date: 08/10/18 21:00:00 S[employer] LOSS [employer] SPECIALIST, Duration: 30 day, Stop date: 09/09/18 9:00:00 S[employer]IOR LOSS CONTR[employer] SPECIALIST Notes: porcine heparin Start Date: 08/10/18 Stop Date: 08/12/18 Status: Discontinued hydrALAZINE 20 mg, 1 mL, Route: IVP, Drug form: INJ, Q4H, Dosing Weight 68.182, kg, PRN Elev ated BP, Start date: 08/10/18 12:46:00 S[employer]IOR LOSS CONTR[employer] SPECIALIST, Duration: 30 day, Stop date: 9 12:45:00 S[employer]IOR LOSS CONTR[employer] SPECIALIST Notes: (Same as: Apresoline)Push over 5 minutes Start Date: 08/10/18 Stop Date: 08/12/18 Status: Discontinued ibuprofen 200 mg, 1 tab, Route: PO, Drug form: TAB, Q6H, Dosing Weight 77.273, kg, PRN Gail st Pain, Start date: 08/11/18 11:11:00 S[employer]IOR LOSS CONTR[employer] SPECIALIST, Duration: 30 day, Stop date: 9 11:10:00 S[employer]IOR LOSS CONTR[employer] SPECIALIST Notes: (Same as: Advil) Give with food. Start Date: 08/11/18 Stop Date: 08/12/18 Status: Discontinued insulin glargine 20 unit, 0.2 mL, Route: SUB-Q, Drug form: SOLN, Daily, Dosing Weight 68.182, kg, Start date: 08/11/18 9:00:00 S[employer]IOR LOSS [employer] SPECIALIST, Duration: 30 day, Stop date: 09/09/18 9:00:00 S[employer]IOR LOSS CONTR[employer] SPECIALIST Notes: (Same as: Lantus)Do not hold insulin without contacting prescriberWASTE: F/P - Black; E - Municipal Trash Bin "single patient use only" Start Date: 08/11/18 Stop Date: 08/12/18 Status: Discontinued insulin lispro 2 unit, 0.02 mL, Route: SUB-Q, Drug form: SOLN, ONCE, Dosing Weight 77.273, kg, Start date: 08/10/18 21:27:00 S[employer]IOR LOSS CONTROL SPECIALIST, Stop date: 08/10/18 21:27:00 SENIOR LOSS CONTROL SPECIALIST Notes: (Same as: Humalog ) Roll in palms of hands gently; Do not shake `vigorou sly. "Single Patient Use Only " WASTE: F/P - Black; E - Municipal Trash Bin St able for 28 days at room temperature.Expires in days from Da te Start Date: 08/10/18 Stop Date: 08/10/18 Status: Completed insulin lispro 2 unit, 0.02 mL, Route: SUB-Q, Drug form: SOLN, TID-Before Meals, Dosing Weight 68.182, kg, PRN Blood Glucose Results, Start date: 08/10/18 11:52:00 SENIOR LOSS CONTROL SPECIALIST, Durati on: 30 day, Stop date: 09/09/18 11:51:00 SENIOR LOSS CONTROL SPECIALIST Notes: (Same as: Humalog ) Roll in palms of hands gently; Do not shake `vigorou sly. "Single Patient Use Only " WASTE: F/P - Black; E - Municipal Trash Bin St able for 28 days at room temperature.Expires in days from Da te Start Date: 08/10/18 Stop Date: 08/12/18 Status: Discontinued insulin lispro 10 unit, 0.1 mL, Route: SUB-Q, Drug form: SOLN, TID-Before Meals, Dosing Weight 68.182, kg, PRN Blood Glucose Results, Start date: 08/10/18 11:52:00 SENIOR LOSS CONTROL SPECIALIST, Durati on: 30 day, Stop date: 09/09/18 11:51:00 SENIOR LOSS CONTROL SPECIALIST Notes: (Same as: Humalog ) Roll in palms of hands gently; Do not shake `vigorou sly. "Single Patient Use Only " WASTE: F/P - Black; E - Municipal Trash Bin St able for 28 days at room temperature.Expires in days from Da te Start Date: 08/10/18 Stop Date: 08/12/18 Status: Discontinued insulin lispro 8 unit, 0.08 mL, Route: SUB-Q, Drug form: SOLN, TID-Before Meals, Dosing Weight 68.182, kg, PRN Blood Glucose Results, Start date: 08/10/18 11:52:00 SENIOR LOSS CONTROL SPECIALIST, Durati on: 30 day, Stop date: 09/09/18 11:51:00 SENIOR LOSS CONTROL SPECIALIST Notes: (Same as: Humalog ) Roll in palms of hands gently; Do not shake `vigorou sly. "Single Patient Use Only " WASTE: F/P - Black; E - Municipal Trash Bin St able for 28 days at room temperature.Expires in days from Da te Start Date: 08/10/18 Stop Date: 08/12/18 Status: Discontinued insulin lispro 4 unit, 0.04 mL, Route: SUB-Q, Drug form: SOLN, TID-Before Meals, Dosing Weight 68.182, kg, PRN Blood Glucose Results, Start date: 08/10/18 11:52:00 SENIOR LOSS CONTROL SPECIALIST, Durati on: 30 day, Stop date: 09/09/18 11:51:00 SENIOR LOSS CONTROL SPECIALIST Notes: (Same as: Humalog ) Roll in palms of hands gently; Do not shake `vigorou sly. "Single Patient Use Only " WASTE: F/P - Black; E - Municipal Trash Bin St able for 28 days at room temperature.Expires in days from Da te Start Date: 08/10/18 Stop Date: 08/12/18 Status: Discontinued insulin lispro 6 unit, 0.06 mL, Route: SUB-Q, Drug form: SOLN, TID-Before Meals, Dosing Weight 68.182, kg, PRN Blood Glucose Results, Start date: 08/10/18 11:52:00 SENIOR LOSS CONTROL SPECIALIST, Durati on: 30 day, Stop date: 09/09/18 11:51:00 SENIOR LOSS CONTROL SPECIALIST Notes: (Same as: Humalog ) Roll in palms of hands gently; Do not shake `vigorou sly. "Single Patient Use Only " WASTE: F/P - Black; E - Municipal Trash Bin St able for 28 days at room temperature.Expires in days from Da te Start Date: 08/10/18 Stop Date: 08/12/18 Status: Discontinued Kayexalate 15 gm, 60 mL, Route: PO, Drug form: SUSP, ONCE, Dosing Weight 77.273, kg, Start date: 08/12/18 7:41:00 S[employer]IOR LOSS CONTROL SPECIALIST, Stop date: 08/12/18 7:41:00 SENIOR LOSS CONTROL SPECIALIST Notes: (sodium polystyrene sulfonate 15 gm/60 ml CLAUDINE) Shake well before use. (Same as: Kayexalate, SPS) Start Date: 08/12/18 Stop Date: 08/16/18 Status: Discontinued Lactated Ringers Injection IV 1,000 mL 1,000 mL, Rate: 100 ml/hr, Infuse over: 10 hr, Route: IV, Dosing Weight 68.182 k g, Total Volume: 1,000, Start date: 08/10/18 11:50:00 SENIOR LOSS CONTR[employer] SPECIALIST, Duration: 30 day, Sto p date: 09/09/18 11:49:00 SENIOR LOSS CONTROL SPECIALIST, 1.8, m2 Start Date: 08/10/18 Stop Date: 08/11/18 Status: Discontinued Lactated Ringers Injection IV 1,000 mL 1,000 mL, Rate: 125 ml/hr, Infuse over: 8 hr, Route: IV, Dosing Weight 77.273 kg , Total Volume: 1,000, Start date: 08/11/18 11:08:00 SENIOR LOSS CONTROL SPECIALIST, Duration: 30 day, Stop date: 09/10/18 11:07:00 SENIOR LOSS CONTROL SPECIALIST, 1.89, m2 Start Date: 08/11/18 Stop Date: 08/12/18 Status: Discontinued lisinopril 20 mg, 1 tab, Route: PO, Drug form: TAB, Daily, Dosing Weight 68.182, kg, Start date: 08/10/18 16:00:00 SENIOR LOSS CONTR[employer] SPECIALIST, Duration: 30 day, Stop date: 09/09/18 9:00:00 SENIOR LOSS CONTROL SPECIALIST Notes: (Same as: Prinivil, Zestril) Start Date: 08/10/18 Stop Date: 08/12/18 Status: Discontinued Lyrica 150 mg, 2 cap, Route: PO, Drug form: CAP, Q12H, Dosing Weight 77.273, kg, Start date: 08/11/18 21:00:00 SENIOR LOSS CONTROL SPECIALIST, Duration: 30 day, Stop date: 09/10/18 9:00:00 SENIOR LOSS CONTROL SPECIALIST Notes: (Same as: Lyrica) Start Date: 08/11/18 Stop Date: 08/12/18 Status: Discontinued magnesium oxide 800 mg, 2 tab, Route: PO, Drug form: TAB, PRN, Dosing Weight 68.182, kg, PRN Abn ormal Lab Result, For NON-ICU Patients Only., Start date: 08/10/18 11:51:00 SENIOR LOSS CONTROL SPECIALIST, Duration: 30 day, Stop date: 09/09/18 11:50:00 SENIOR LOSS CONTROL SPECIALIST Notes: (Same as: Mag-Ox 400)Magnesium oxide [id number] elemental magnesiumDose= ____mg magnesium oxide (___mg elemental magnesium) Start Date: 08/10/18 Stop Date: 08/12/18 Status: Discontinued magnesium sulfate 2 gm, 50 mL, Route: IVPB, Drug form: INJ, PRN, Dosing Weight 68.182, kg, PRN Abn ormal Lab Result, For NON-ICU Patients Only., Start date: 08/10/18 11:51:00 SENIOR LOSS CONTROL SPECIALIST, Duration: 30 day, Stop date: 09/09/18 11:50:00 SENIOR LOSS CONTROL SPECIALIST Notes: WASTE: F/P - Sink; E - Municipal Trash Bin Start Date: 08/10/18 Stop Date: 08/12/18 Status: Discontinued magnesium sulfate 1 gm, 100 mL, Route: IVPB, Drug form: INJ, PRN, Dosing Weight 68.182, kg, PRN Ab normal Lab Result, For NON-ICU Patients Only., Start date: 08/10/18 11:51:00 SENIOR LOSS CONTROL SPECIALIST , Duration: 30 day, Stop date: 09/09/18 11:50:00 SENIOR LOSS CONTROL SPECIALIST Notes: WASTE: F/P - Sink; E - Municipal Trash Bin Start Date: 08/10/18 Stop Date: 08/12/18 Status: Discontinued NS (Bolus) IV 1,000 mL, 1,000 ml/hr, Infuse Over: 1 hr, Route: IV, ONCE, Priority: STAT, Dosin g Weight 68.182 kg, Start date: 08/10/18 11:18:00 SENIOR LOSS CONTROL SPECIALIST, Stop date: 08/10/18 11:18 :00 SENIOR LOSS CONTROL SPECIALIST Start Date: 08/10/18 Stop Date: 08/10/18 Status: Completed ondansetron 4 mg, 2 mL, Route: IVP, Drug form: INJ, Q8H, Dosing Weight 68.182, kg, PRN Nause a & Vomiting, Start date: 08/10/18 11:47:00 SENIOR LOSS CONTROL SPECIALIST, Duration: 30 day, Stop date: 09/09/18 11:46:00 SENIOR LOSS CONTROL SPECIALIST Notes: (Same as: [place]) MEDICATION WASTE Product Size: 4 mgProduct Was mirna: ___ mg Start Date: 08/10/18 Stop Date: 08/12/18 Status: Discontinued potassium chloride 10 mEq, 100 mL, Route: IVPB, Drug form: INJ, PRN, Dosing Weight 68.182, kg, PRN Abnormal Lab Result, For NON-ICU Patients Only, Start date: 08/10/18 11:51:00 CS T, Duration: 30 day, Stop date: 09/09/18 11:50:00 SENIOR LOSS CONTROL SPECIALIST Notes: Infuse at a rate of 10 mEq/hr.(Same as: KCL) Start Date: 08/10/18 Stop Date: 08/12/18 Status: Discontinued potassium chloride 20 mEq, 1 tab, Route: PO, Drug form: ERTAB, PRN, Dosing Weight 68.182, kg, PRN A bnormal Lab Result, For NON-ICU Patients Only, Start date: 08/10/18 11:51:00 SENIOR LOSS CONTROL SPECIALIST , Duration: 30 day, Stop date: 09/09/18 11:50:00 SENIOR LOSS CONTROL SPECIALIST Notes: (Same as: K-Dur 20)"Do Not Crush" Give with food and full glass of water For patients unable to swallow tablet, dissolve in one half glass of water. Allo w about 2 minutes for the tablets to disintegrate. Stir before giving to prepare slurry and administer.Please exclude Patients with feeding tube less than 14 [place] (Dobhoff, J-tube etc) and pediatric and patients. Start Date: 08/10/18 Stop Date: 08/12/18 Status: Discontinued potassium chloride 20 mEq, 1 pkt, Route: NJ, Drug form: PDR/REC, PRN, Dosing Weight 68.182, kg, PRN Abnormal Lab Result, For NON-ICU Patients Only, Start date: 08/10/18 11:51:[address], Duration: 30 day, Stop date: 09/09/18 11:50:00 SENIOR LOSS CONTROL SPECIALIST Notes: (Same as: K-[place]) With food and full glass of water Start Date: 08/10/18 Stop Date: 08/12/18 Status: Discontinued potassium phosphate + Sodium Chloride 0.9% IV 250 mL 15 mmol, 5 mL, Route: IVPB, PRN, Dosing Weight 68.182, kg, PRN Abnormal Lab Resu lt, For NON-ICU Patients Only., Start date: 08/10/18 11:51:00 SENIOR LOSS CONTROL SPECIALIST, Duration: 30 day, Stop date: 09/09/18 11:50:00 SENIOR LOSS CONTROL SPECIALIST Notes: (Same as: K Phosphate.)Do not infuse phosphorous concurrently in the same line as TPN or IVF that contains calcium. For double lumen central lines, phosp horous may be infused in a separate lumen from TPN. 1 mMol phoshate has 1.47 mE q potassium Infuse over 4 hours Start Date: 08/10/18 Stop Date: 08/12/18 Status: Discontinued potassium phosphate + Sodium Chloride 0.9% IV 250 mL 30 mmol, 10 mL, Route: IVPB, PRN, Dosing Weight 68.182, kg, PRN Abnormal Lab Res ult, For NON-ICU Patients Only., Start date: 08/10/18 11:51:00 SENIOR LOSS CONTROL SPECIALIST, Duration: 30 day, Stop date: 09/09/18 11:50:00 SENIOR LOSS CONTROL SPECIALIST Notes: (Same as: K Phosphate.)Do not infuse phosphorous concurrently in the same line as TPN or IVF that contains calcium. For double lumen central lines, phosp horous may be infused in a separate lumen from TPN. 1 mMol phoshate has 1.47 mE q potassium Infuse over 4 hours Start Date: 08/10/18 Stop Date: 08/12/18 Status: Discontinued potassium phosphate-sodium phosphate 250 mg-280 mg-160 mg oral powder for recons titution 2 pkt, Route: PO, Drug Form: PDR/REC, Dosing Weight 68.182, kg, PRN, PRN Abnorma l Lab Result, For NON-ICU Patients Only, Start date: 08/10/18 11:51:00 SENIOR LOSS CONTROL SPECIALIST, Dura tion: 30 day, Stop date: 09/09/18 11:50:00 SENIOR LOSS CONTROL SPECIALIST Notes: (Same as: Phos-NaK) Each 1.5 gm pkt has 250mg phosphorous. Mix w/2.5oz w ater and stir. Start Date: 08/10/18 Stop Date: 08/12/18 Status: Discontinued pravastatin 40 mg, 2 tab, Route: PO, Drug form: TAB, Bedtime, Dosing Weight 68.182, kg, Star t date: 08/10/18 21:00:00 SENIOR LOSS CONTROL SPECIALIST, Duration: 30 day, Stop date: 09/08/18 21:00:00 CS T Notes: (Same as: Pravachol) Start Date: 08/10/18 Stop Date: 08/12/18 Status: Discontinued QUEtiapine 25 mg, 1 tab, Route: PO, Drug form: TAB, BID, Dosing Weight 68.182, kg, Start da te: 08/10/18 17:00:00 SENIOR LOSS CONTROL SPECIALIST, Duration: 30 day, Stop date: 09/09/18 9:00:00 SENIOR LOSS CONTROL SPECIALIST Notes: (Same as: SEROquel) Start Date: 08/10/18 Stop Date: 08/12/18 Status: Discontinued Saline Flush 0.9% 10 mL, Route: IVP, Drug Form: INJ, Dosing Weight 68.182, kg, PRN, PRN Line Flush , Start date: 08/10/18 10:02:00 SENIOR LOSS CONTROL SPECIALIST, Duration: 30 day, Stop date: 09/09/18 10:01 :00 SENIOR LOSS CONTROL SPECIALIST Notes: (Same as: BD Posiflush) Start Date: 08/10/18 Stop Date: 08/12/18 Status: Discontinued sodium phosphate + Sodium Chloride 0.9% IV 250 mL 15 mmol, 5 mL, Route: IVPB, PRN, Dosing Weight 68.182, kg, PRN Abnormal Lab Resu lt, For NON-ICU Patients Only., Start date: 08/10/18 11:51:00 SENIOR LOSS CONTROL SPECIALIST, Duration: 30 day, Stop date: 09/09/18 11:50:00 SENIOR LOSS CONTROL SPECIALIST Notes: Infuse over 4 hour. Do not infuse phosphorous concurrently in the same li ne as TPN or IVF that contains calcium. For double lumen central lines, phosphor ous may be infused in a separate lumen from TPN. Start Date: 08/10/18 Stop Date: 08/12/18 Status: Discontinued sodium phosphate + Sodium Chloride 0.9% IV 250 mL 30 mmol, 10 mL, Route: IVPB, PRN, Dosing Weight 68.182, kg, PRN Abnormal Lab Res ult, For NON-ICU Patients Only., Start date: 08/10/18 11:51:00 SENIOR LOSS CONTROL SPECIALIST, Duration: 30 day, Stop date: 09/09/18 11:50:00 SENIOR LOSS CONTROL SPECIALIST Notes: Infuse over 4 hour. Do not infuse phosphorous concurrently in the same li ne as TPN or IVF that contains calcium. For double lumen central lines, phosphor ous may be infused in a separate lumen from TPN. Start Date: 08/10/18 Stop Date: 08/12/18 Status: Discontinued Toprol-XL 50 mg oral tablet, extended release 50 mg, 1 tab, Route: PO, Drug form: ERTAB, Daily, Start date: 08/11/18 14:37:00 SENIOR LOSS CONTROL SPECIALIST, Duration: 30 day, Stop date: 09/10/18 9:00:00 SENIOR LOSS CONTROL SPECIALIST Notes: (Same as: Toprol XL) May split tab, but do not crush. Start Date: 08/11/18 Stop Date: 08/12/18 Status: Discontinued venlafaxine 75 mg, 1 cap, Route: PO, Drug form: ERCAP, Daily, Dosing Weight 68.182, kg, Star t date: 08/11/18 9:00:00 SENIOR LOSS CONTROL SPECIALIST, Duration: 30 day, Stop date: 09/09/18 9:00:00 SENIOR LOSS CONTROL SPECIALIST Notes: Do not open, crush, or chew.(Same As: Effexor XR) Start Date: 08/11/18 Stop Date: 08/12/18 Status: Discontinued Results 1 2 3 Most recent to oldest [Reference Range]: 7.0 K/CMM (08/10/18 10:18 AM) Neutrophils # [1.5-8.1 K/CMM] 2.6 K/CMM (08/10/18 10:18 AM) Lymphocytes # [1.0-5.5 K/CMM] 0.6 K/CMM (08/10/18 10:18 AM) Monocytes # [0.0-0.8 K/CMM] 0.2 K/CMM (08/10/18 10:18 AM) Eosinophils # [0.0-0.5 K/CMM] 0.1 K/CMM (08/10/18 10:18 AM) Basophils # [0.0-0.2 K/CMM] 220 pg/mL *HI* (08/10/18 10:18 AM) BNP [<=100 pg/mL] 81 mL/min/1.73m2 1 *NA* (08/12/18 6:00 AM) 69 mL/min/1.73m2 2 *NA* (08/11/18 2:10 PM) 54 mL/min/1.73m2 3 *NA* (08/10/18 10:18 AM) eGFR See Note *NA* (08/10/18 11:56 PM) UDS Note 0.8 (08/10/18 10:18 AM) A/G Ratio [0.7-1.6] 3.1 g/dL *LOW* (08/10/18 10:18 AM) Albumin Lvl [3.5-5.0 g/dL] 161 unit/L *HI* (08/10/18 10:18 AM) Alk Phos [39-136 unit/L] 20 unit/L (08/10/18 10:18 AM) ALT [0-65 unit/L] Negative *NA* (08/10/18 11:56 PM) U Amph Scr [Negative] 14.8 mEq/L (08/12/18 6:00 AM) 11.4 mEq/L (08/11/18 2:10 PM) 10.5 mEq/L (08/10/18 10:18 AM) AGAP [10.0-20.0 mEq/L] 25 unit/L (08/10/18 10:18 AM) AST [0-37 unit/L] 17 (08/10/18 10:18 AM) B/C Ratio [6-25] Negative *NA* (08/10/18 11:56 PM) U Ryanne Scr [Negative] 0.5 % (08/10/18 10:18 AM) Basophils [0.0-1.0 %] Negative *NA* (08/10/18 11:56 PM) U Benzodiaz Scr [Negative] 20 mg/dL (08/12/18 6:00 AM) 20 mg/dL (08/11/18 2:10 PM) 20 mg/dL (08/10/18 10:18 AM) BUN [7-22 mg/dL] 8.8 mg/dL (08/12/18 6:00 AM) 8.4 mg/dL *LOW* (08/11/18 2:10 PM) 8.4 mg/dL *LOW* (08/10/18 10:18 AM) Calcium Lvl [8.5-10.5 mg/dL] 196 unit/L *HI* (08/10/18 10:18 AM) Total CK [12-191 unit/L] 107 mEq/L (08/12/18 6:00 AM) 106 mEq/L (08/11/18 2:10 PM) 107 mEq/L (08/10/18 10:18 AM) Chloride Lvl [95-109 mEq/L] 21 mEq/L *LOW* (08/12/18 6:00 AM) 25 mEq/L (08/11/18 2:10 PM) 24 mEq/L (08/10/18 10:18 AM) CO2 [24-32 mEq/L] Negative *NA* (08/10/18 11:56 PM) U Cocaine Scr [Negative] 0.84 mg/dL (08/12/18 6:00 AM) 0.96 mg/dL (08/11/18 2:10 PM) 1.18 mg/dL (08/10/18 10:18 AM) Creatinine Lvl [0.50-1.40 mg/dL] 2.3 % (08/10/18 10:18 AM) Eosinophils [0.0-4.0 %] 4.1 g/dL (08/10/18 10:18 AM) Globulin [2.7-4.2 g/dL] 193 mg/dL *HI* (08/12/18 6:00 AM) 217 mg/dL *HI* (08/11/18 2:10 PM) 263 mg/dL *HI* (08/10/18 10:18 AM) Glucose Lvl [70-99 mg/dL] 33.6 % *LOW* (08/11/18 2:10 PM) 36.7 % (08/10/18 10:18 AM) Hct [36.0-48.0 %] 11.0 g/dL *LOW* (08/11/18 2:10 PM) 12.1 g/dL (08/10/18 10:18 AM) Hgb [12.0-16.0 g/dL] 0.95 (08/10/18 10:18 AM) INR [0.85-1.17] 5.8 mEq/L *HI* (08/12/18 6:00 AM) 5.4 mEq/L *HI* (08/11/18 2:10 PM) 4.9 mEq/L (08/10/18 3:20 PM) Potassium Lvl [3.5-5.1 mEq/L] 306 unit/L (08/10/18 10:18 AM) Lipase Lvl [73-393 unit/L] 24.6 % (08/10/18 10:18 AM) Lymphocytes [20.0-40.0 %] 27.3 pg (08/11/18 2:10 PM) 27.6 pg (08/10/18 10:18 AM) MCH [27.0-31.0 pg] 32.8 g/dL (08/11/18 2:10 PM) 32.9 g/dL (08/10/18 10:18 AM) MCHC [32.0-36.0 g/dL] 83.3 fL (08/11/18 2:10 PM) 83.9 fL (08/10/18 10:18 AM) MCV [80.0-98.0 fL] 2.1 mg/dL (08/10/18 10:18 AM) Magnesium Lvl [1.8-2.4 mg/dL] 5.8 % (08/10/18 10:18 AM) Monocytes [2.0-12.0 %] 7.4 fL (08/11/18 2:10 PM) 7.3 fL *LOW* (08/10/18 10:18 AM) MPV [7.4-10.4 fL] 137 mEq/L (08/12/18 6:00 AM) 137 mEq/L (08/11/18 2:10 PM) 136 mEq/L (08/10/18 10:18 AM) Sodium Lvl [135-145 mEq/L] Negative *NA* (08/10/18 11:56 PM) U Opiate Scr [Negative] Negative *NA* (08/10/18 11:56 PM) U Phencyclidine Scr [Negative] 3.3 mg/dL (08/10/18 10:18 AM) Phosphorus [2.5-4.5 mg/dL] 176 K/CMM (08/11/18 2:10 PM) 243 K/CMM (08/10/18 10:18 AM) Platelet [133-450 K/CMM] 66.8 % (08/10/18 10:18 AM) Segs [45.0-75.0 %] 7.2 g/dL (08/10/18 10:18 AM) Total Protein [6.4-8.4 g/dL] 12.5 seconds (08/10/18 10:18 AM) PT [12.0-14.7 seconds] 31.9 seconds (08/10/18 10:18 AM) PTT [22.9-35.8 seconds] 4.04 M/CMM *LOW* (08/11/18 2:10 PM) 4.37 M/CMM (08/10/18 10:18 AM) RBC [4.20-5.40 M/CMM] 13.9 % (08/11/18 2:10 PM) 14.2 % (08/10/18 10:18 AM) RDW [11.5-14.5 %] 0.3 mg/dL (08/10/18 10:18 AM) Bili Total [0.2-1.3 mg/dL] Negative *NA* (08/10/18 11:56 PM) U Cannab Scr [Negative] 0.03 ng/mL (08/11/18 9:37 PM) 0.03 ng/mL (08/11/18 5:47 PM) 0.05 ng/mL (08/11/18 2:10 PM) Troponin-I [0.00-0.40 ng/mL] Occasional /HPF *NA* (08/10/18 11:56 PM) UA Bacteria [None Seen /HPF] Negative *NA* (08/10/18 11:56 PM) UA Bili [Negative] Small *ABN* (08/10/18 11:56 PM) UA Blood [Negative] Yellow *NA* (08/10/18 11:56 PM) UA Color [Yellow] 500 mg/dL *ABN* (08/10/18 11:56 PM) UA Glucose [Negative mg/dL] Negative *NA* (08/10/18 11:56 PM) UA Ketones [Negative] Small *ABN* (08/10/18 11:56 PM) UA Leuk Est [Negative] Few /LPF *NA* (08/10/18 11:56 PM) UA Mucus [None Seen /LPF] Negative (08/10/18 11:56 PM) UA Nitrite [Negative] 6.5 (08/10/18 11:56 PM) UA pH [5.0-8.0] Trace *ABN* (08/10/18 11:56 PM) UA Protein [Negative] 8 /HPF *HI* (08/10/18 11:56 PM) UA RBC [0-2 /HPF] 1.015 (08/10/18 11:56 PM) UA Spec Grav [<=1.030] Occasional /LPF *NA* (08/10/18 11:56 PM) UA Sq Epi [Few /LPF] Clear (08/10/18 11:56 PM) UA Turbidity [Clear] 0.2 EU/dL (08/10/18 11:56 PM) UA Urobilinogen [0.1-1.0 EU/dL] 5 /HPF (08/10/18 11:56 PM) UA WBC [0-5 /HPF] 5.7 K/CMM (08/11/18 2:10 PM) 10.5 K/CMM *HI* (08/10/18 10:18 AM) WBC [3.7-10.4 K/CMM] 1Result Comment: The eGFR is calculated using [...] be mul tiplied by the estimated BMI. Immunizations Given and Recorded Vaccine Date Status [...] 02/23/19 Assessment and Plan Extracted from: Title: Progress Note * Author: Jayy Rubin MD [...] Full Code -Decision Maker: Patient -Surrogate: Extracted from: Title: General Admission H&P * Author: Jayy Rubin [...]
--- OUTSIDE RECORDS SUMMARY | 2019-05-04 10:40 | XMS REPORT | Summary of Care ---
Author Author [facility] Organization [facility] Address Unknown Phone Unavailable Encounter HQ Hillary(FIN) [id number] Date(s): 05/02/17 - 05/03/17 [facility] [id number] [place] [address]- Discharge Diagnosis: Abdominal pain in female Discharge Disposition: Home or Self Care Attending Physician: Samuel Whitfield MD Vital Signs 1 2 3 Most recent to oldest [Reference Range]: 98.0 DegF (05/03/17 6:30 AM) 98.6 DegF (05/02/17 10:48 PM) Temperature Oral [96.4-99.1 DegF] 108/66 mmHg (05/03/17 6:30 AM) 98/61 mmHg (05/03/17 4:29 AM) 100/70 mmHg (05/03/17 3:48 AM) Blood Pressure [90-140/60-90 mmHg] 16 BRMIN (05/03/17 6:30 AM) 16 BRMIN (05/03/17 4:29 AM) 14 BRMIN (05/03/17 3:48 AM) Respiratory Rate [14-20 BRMIN] 99 bpm (05/02/17 10:48 PM) Peripheral Pulse Rate [60-100 bpm] 72.727 kg (05/02/17 10:48 PM) Weight Problem List Condition Effective Dates Status Health [...] Substance Reaction Severity Status NKDA Active Medications GI cocktail 30 mL, Route: PO, Drug Form: SUSP, Dosing Weight 72.727, kg, ONCE, STAT, Start d ate: 05/02/17 23:18:00 CDT, Stop date: 05/02/17 23:18:00 CDT Notes: G.I. Cocktail=antacid with simethicone 22.5 mL - lidocaine viscous 7.5 mL Start Date: 05/02/17 Stop Date: 05/03/17 Status: Completed metoclopramide 10 mg, Route: IVP, Drug form: INJ, ONCE, Dosing Weight 72.727, kg, Priority: STA T, Start date: 05/02/17 23:18:00 CDT, Stop date: 05/02/17 23:18:00 CDT Start Date: 05/02/17 Stop Date: 05/02/17 Status: Completed morphine Sulfate 4 mg, Route: IVP, ONCE, Dosing Weight 72.727, kg, Priority: STAT, Start date: 23:18:00 CDT, Stop date: 05/02/17 23:18:00 CDT Start Date: 05/02/17 Stop Date: 05/02/17 Status: Completed NS (Bolus) IV 1,000 mL, 1,000 ml/hr, Infuse Over: 1 hr, Route: IV, 1,000, Drug form: INJ, ONCE , Priority: STAT, Dosing Weight 72.727 kg, Start date: 05/03/17 2:22:00 CDT, Dur ation: 1 doses or times, Stop date: 05/03/17 2:22:00 CDT Start Date: 05/03/17 Stop Date: 05/03/17 Status: Completed Saline Flush 0.9% 10 mL, Route: IVP, Drug Form: INJ, Dosing Weight 72.727, kg, PRN, PRN Line Flush , Start date: 05/02/17 23:18:00 CDT, Duration: 30 day, Stop date: 06/01/17 23:17 :00 CDT Notes: (Same as: BD Posiflush) Start Date: 05/02/17 Stop Date: 05/03/17 Status: Discontinued Sodium Chloride 0.9% (Bolus) IV 1,000 mL, 1000 ml/hr, Infuse Over: 1 hr, Route: IV, 1,000, Drug form: INJ, ONCE, Priority: STAT, Dosing Weight 72.727 kg, Start date: 05/03/17 3:42:00 CDT, Dura tion: 1 doses or times, Stop date: 05/03/17 3:42:00 CDT Start Date: 05/03/17 Stop Date: 05/03/17 Status: Completed Tylenol with Codeine #3 oral tablet 1 tab, PO, Q6H, PRN Pain, X 15 day, # 60 tab, 0 Refill(s) Start Date: 05/03/17 Stop Date: 05/18/17 Status: Ordered Results ELECTROLYTES Most recent to 1 oldest [Reference Range]: Sodium Lvl [135-145 136 mEq/L mEq/L] (05/02/17 11:45 PM) Potassium Lvl 3.7 mEq/L [3.5-5.1 mEq/L] (05/02/17 11:45 PM) Chloride Lvl [95-109 100 mEq/L mEq/L] (05/02/17 11:45 PM) CO2 [24-32 mEq/L] 27 mEq/L (05/02/17 11:45 PM) AGAP [10.0-20.0 12.7 mEq/L mEq/L] (05/02/17 11:45 PM) CHEM PANEL Most recent to 1 oldest [Reference Range]: Creatinine Lvl 1.20 mg/dL [0.50-1.40 mg/dL] (05/02/17 11:45 PM) eGFR 53 mL/min/1.73m2 1 *NA* (05/02/17 11:45 PM) BUN [7-22 mg/dL] 27 mg/dL *HI* (05/02/17 11:45 PM) B/C Ratio [6-25] 22 (05/02/17 11:45 PM) Glucose Lvl [70-99 192 mg/dL mg/dL] *HI* (05/02/17 11:45 PM) Total Protein 7.5 g/dL [6.4-8.4 g/dL] (05/02/17 11:45 PM) Albumin Lvl [3.5-5.0 3.2 g/dL g/dL] *LOW* (05/02/17 11:45 PM) Globulin [2.7-4.2 4.3 g/dL g/dL] *HI* (05/02/17 11:45 PM) A/G Ratio [0.7-1.6] 0.7 (05/02/17 11:45 PM) Calcium Lvl 8.8 mg/dL [8.5-10.5 mg/dL] (05/02/17 11:45 PM) ALT [0-65 unit/L] 18 unit/L (05/02/17 11:45 PM) AST [0-37 unit/L] 20 unit/L (05/02/17 11:45 PM) Alk Phos [39-136 112 unit/L unit/L] (05/02/17 11:45 PM) Bili Total [0.2-1.3 0.3 mg/dL mg/dL] (05/02/17 11:45 PM) Lipase Lvl [73-393 216 unit/L unit/L] (05/02/17 11:45 PM) 1Result Comment: The eGFR is calculated [...] be mul tiplied by the estimated BMI. URINE AND STOOL Most recent to 1 oldest [Reference Range]: UA Turbidity [Clear] Clear (05/03/17 4:21 AM) UA Color [Yellow] Yellow *NA* (05/03/17 4:21 AM) UA pH [5.0-8.0] 5.5 (05/03/17 4:21 AM) UA Spec Grav 1.010 [<=1.030] (05/03/17 4:21 AM) UA Glucose Negative [Negative] (05/03/17 4:21 AM) UA Blood [Negative] Small *ABN* (05/03/17 4:21 AM) UA Ketones Negative [Negative] *NA* (05/03/17 4:21 AM) UA Protein [Negative 30 mg/dL mg/dL] *ABN* (05/03/17 4:21 AM) UA Urobilinogen 0.2 EU/dL [0.1-1.0 EU/dL] (05/03/17 4:21 AM) UA Bili [Negative] Negative *NA* (05/03/17 4:21 AM) UA Leuk Est Negative [Negative] (05/03/17 4:21 AM) UA Nitrite Negative [Negative] (05/03/17 4:21 AM) UA WBC [0-5 /HPF] 23 /HPF *HI* (05/03/17 4:21 AM) UA RBC [0-2 /HPF] 87 /HPF *HI* (05/03/17 4:21 AM) UA Bacteria [None Occasional /HPF Seen /HPF] *NA* (05/03/17 4:21 AM) UA Sq Epi [Few /LPF] Occasional /LPF *NA* (05/03/17 4:21 AM) UA Mucus [None Seen Few /LPF /LPF] *NA* (05/03/17 4:21 AM) UA [place] Yeast [None Many /HPF Seen /HPF] *ABN* (05/03/17 4:21 AM) HEMATOLOGY Most recent to 1 oldest [Reference Range]: WBC [3.7-10.4 K/CMM] 9.8 K/CMM (05/02/17 11:45 PM) RBC [4.20-5.40 4.76 M/CMM M/CMM] (05/02/17 11:45 PM) Hgb [12.0-16.0 g/dL] 13.4 g/dL (05/02/17 11:45 PM) Hct [36.0-48.0 %] 39.3 % (05/02/17 11:45 PM) MCV [80.0-98.0 fL] 82.5 fL (05/02/17 11:45 PM) MCH [27.0-31.0 pg] 28.3 pg (05/02/17 11:45 PM) MCHC [32.0-36.0 34.2 g/dL g/dL] (05/02/17 11:45 PM) RDW [11.5-14.5 %] 12.8 % (05/02/17 11:45 PM) Platelet [133-450 196 K/CMM K/CMM] (05/02/17 11:45 PM) MPV [7.4-10.4 fL] 7.2 fL *LOW* (05/02/17 11:45 PM) Segs [45.0-75.0 %] 67.5 % (05/02/17 11:45 PM) Lymphocytes 25.9 % [20.0-40.0 %] (05/02/17 11:45 PM) Monocytes [2.0-12.0 5.5 % %] (05/02/17 11:45 PM) Eosinophils [0.0-4.0 0.9 % %] (05/02/17 11:45 PM) Basophils [0.0-1.0 0.2 % %] (05/02/17 11:45 PM) Segs-Bands # 6.6 K/CMM [1.5-8.1 K/CMM] (05/02/17 11:45 PM) Lymphocytes # 2.5 K/CMM [1.0-5.5 K/CMM] (05/02/17 11:45 PM) Monocytes # [0.0-0.8 0.5 K/CMM K/CMM] (05/02/17 11:45 PM) Eosinophils # 0.1 K/CMM [0.0-0.5 K/CMM] (05/02/17 11:45 PM) Immunizations Given and Recorded Vaccine Date [...]
--- OUTSIDE RECORDS SUMMARY | 2019-05-04 10:40 | XMS REPORT | Summary of Care ---
Author Author [facility] Organization [facility] Address Unknown Phone Unavailable Encounter HQ Hillary(ARIC) [id number] Date(s): 02/05/17 - 02/07/17 [facility] [address] [facility] [employer] provided by [facility] [place] [address]- Discharge Disposition: Home or Self Care Attending Physician: Tere Flores MD Admitting Physician: Tere Flores MD Vital Signs 1 2 3 Most recent to oldest [Reference Range]: 162.56 cm (02/05/17 12:26 PM) Height 79.009 kg (02/07/17 4:21 AM) Current Weight 97.9 DegF (02/07/17 3:17 PM) 97.6 DegF (02/07/17 11:16 AM) 97.8 DegF (02/07/17 7:15 AM) Temperature Oral [96.4-99.1 DegF] 149/94 mmHg *HI* (02/07/17 3:17 PM) 133/75 mmHg (02/07/17 11:16 AM) 115/65 mmHg (02/07/17 7:15 AM) Blood Pressure [90-140/60-90 mmHg] 18 BRMIN (02/07/17 3:17 PM) 18 BRMIN (02/07/17 11:16 AM) 18 BRMIN (02/07/17 7:15 AM) Respiratory Rate [14-20 BRMIN] 99 bpm (02/07/17 3:17 PM) 98 bpm (02/07/17 11:16 AM) 96 bpm (02/07/17 7:15 AM) Peripheral Pulse Rate [60-100 bpm] 72.727 kg (02/05/17 12:26 PM) Weight 27.52 m2 (02/05/17 12:26 PM) Body Mass Index Problem List Condition [...] Substance Reaction Severity Status NKDA Active Medications albuterol 0.083% inhalation solution 9 mL, Route: INHALATION, ONCE, Dosing Weight 72.727, kg, Start date: 02/05/17 13 :20:00 CDT, Stop date: 02/05/17 13:20:00 CDT Start Date: 02/05/17 Stop Date: 02/05/17 Status: Completed albuterol 0.083% inhalation solution 10 mL, Route: INHALATION, ONCE, Dosing Weight 72.727, kg, Start date: 02/05/17 1 8:00:00 CDT, Stop date: 02/05/17 18:00:00 CDT Start Date: 02/05/17 Stop Date: 02/05/17 Status: Completed aspirin 81 mg tablet, chewable 81 mg=1 tab, PO, Daily Start Date: 02/05/17 Stop Date: 02/07/17 Status: Discontinued aspirin 81 mg tablet, chewable 81 mg=1 tab, PO, Daily, # 30 tab, 3 Refill(s) Start Date: 02/07/17 Stop Date: 06/07/17 Status: Ordered aspirin 81 mg tablet, enteric coated 81 mg, 1 tab, Route: PO, Drug form: ECTAB, Daily, Dosing Weight 72.727, kg, Star t date: 02/06/17 9:00:00 CDT, Duration: 30 day, Stop date: 03/07/17 9:00:00 CDT Notes: Do not crush or chew.(Same As: Ecotrin) Start Date: 02/06/17 Stop Date: 02/07/17 Status: Discontinued calcium carbonate 500 mg (200 mg elemental calcium) oral tablet 500 mg, 1 tab, Route: PO, Drug form: CHEWTAB, PRN, Dosing Weight 72.727, kg, PRN Abnormal Lab Result, FOR ICU USE ONLY, Start date: 02/06/17 1:08:00 CDT, Durati on: 30 day, Stop date: 03/08/17 1:07:00 CDT Notes: (Same As: Tums)Calcium Carbonate 500 ap=020 mg elemental calcium Dose=_ mg calcium carbonate ( mg elemental calcium) Start Date: 02/06/17 Stop Date: 02/06/17 Status: Discontinued calcium carbonate 500 mg (200 mg elemental calcium) oral tablet 1,000 mg, 2 tab, Route: PO, Drug form: CHEWTAB, PRN, Dosing Weight 72.727, kg, P RN Abnormal Lab Result, FOR ICU USE ONLY, Start date: 02/06/17 1:08:00 CDT, Dura tion: 30 day, Stop date: 03/08/17 1:07:00 CDT Notes: (Same As: Tums)Calcium Carbonate 500 vr=198 mg elemental calcium Dose=_ mg calcium carbonate ( mg elemental calcium) Start Date: 02/06/17 Stop Date: 02/06/17 Status: Discontinued calcium gluconate 1,000 mg, Route: IVPB, Drug form: INJ, ONCE, Dosing Weight 72.727, kg, Start megan e: 02/05/17 13:21:00 CDT, Stop date: 02/05/17 13:21:00 CDT Start Date: 02/05/17 Stop Date: 02/05/17 Status: Completed calcium gluconate 1,000 mg, Route: IVPB, Drug form: INJ, ONCE, Dosing Weight 72.727, kg, Start megan e: 02/05/17 13:24:00 CDT, Stop date: 02/05/17 13:24:00 CDT Start Date: 02/05/17 Stop Date: 02/05/17 Status: Completed calcium gluconate + sodium chloride 0.9% INJ 50 mL 1 gm, 10 mL, Route: IVPB, PRN, Dosing Weight 72.727, kg, PRN Abnormal Lab Result , Start date: 02/06/17 1:08:00 CDT, Duration: 30 day, Stop date: 03/08/17 1:07:0 0 CDT, FOR ICU USE ONLY Notes: WASTE: F/P - Sink; E - Municipal Trash Bin Start Date: 02/06/17 Stop Date: 02/06/17 Status: Discontinued calcium gluconate + sodium chloride 0.9% INJ 80 mL 2,000 mg, 20 mL, Route: IVPB, ONCE, Dosing Weight 72.727, kg, Start date: 21:55:00 CDT, Stop date: 02/05/17 21:55:00 CDT Notes: WASTE: F/P - Sink; E - [facility] Trash Bin Start Date: 02/05/17 Stop Date: 02/05/17 Status: Completed Dextrose 50% Syringe 25 gm, 50 mL, Route: IVP, Drug Form: INJ, Dosing Weight 72.727, kg, PRN, PRN Blo od Glucose Results, Start date: 02/06/17 0:35:00 CDT, Duration: 30 day, Stop megan e: 03/08/17 0:34:00 CDT Start Date: 02/06/17 Stop Date: 02/06/17 Status: Discontinued Dextrose 50% Syringe 12.5 gm, 25 mL, Route: IVP, Drug Form: INJ, Dosing Weight 72.727, kg, PRN, PRN B lood Glucose Results, Start date: 02/06/17 0:35:00 CDT, Duration: 30 day, Stop d ate: 03/08/17 0:34:00 CDT Start Date: 02/06/17 Stop Date: 02/06/17 Status: Discontinued Dextrose 50% Syringe 25 gm, Route: IVP, Dosing Weight 72.727, kg, ONCE, STAT, Start date: 02/05/17 13 :20:00 CDT, Stop date: 02/05/17 13:20:00 CDT Start Date: 02/05/17 Stop Date: 02/05/17 Status: Completed Dextrose 50% Syringe 25 gm, 50 mL, Route: IVP, Drug Form: INJ, Dosing Weight 72.727, kg, PRN, PRN Blo od Glucose Results, Start date: 02/06/17 18:18:00 CDT, Duration: 30 day, Stop da te: 03/08/17 18:17:00 CDT Start Date: 02/06/17 Stop Date: 02/07/17 Status: Discontinued Dextrose 50% Syringe 12.5 gm, 25 mL, Route: IVP, Drug Form: INJ, Dosing Weight 72.727, kg, PRN, PRN B lood Glucose Results, Start date: 02/06/17 18:18:00 CDT, Duration: 30 day, Stop date: 03/08/17 18:17:00 CDT Start Date: 02/06/17 Stop Date: 02/07/17 Status: Discontinued Dextrose 50% Syringe 50 gm, Route: IVP, Dosing Weight 72.727, kg, ONCE, Start date: 02/05/17 18:00:00 CDT, Stop date: 02/05/17 18:00:00 CDT Start Date: 02/05/17 Stop Date: 02/05/17 Status: Completed furosemide 40 mg oral tablet 40 mg=1 tab, PO, Daily, # 30 tab, 3 Refill(s) Start Date: 02/07/17 Status: Ordered glucagon 1 mg, Route: IM, Drug form: PDR/INJ, PRN, Dosing Weight 72.727, kg, PRN Blood Gl ucose Results, Start date: 02/06/17 0:35:00 CDT, Duration: 30 day, Stop date: 0:34:00 CDT Start Date: 02/06/17 Stop Date: 02/06/17 Status: Discontinued glucagon 1 mg, Route: IM, Drug form: PDR/INJ, PRN, Dosing Weight 72.727, kg, PRN Blood Gl ucose Results, Start date: 02/06/17 18:18:00 CDT, Duration: 30 day, Stop date: 0 03/08/17 18:17:00 CDT Start Date: 02/06/17 Stop Date: 02/07/17 Status: Discontinued heparin 5,000 unit, Route: SUB-Q, Q8H, Dosing Weight 72.727, kg, Start date: 02/06/17 8: 00:00 CDT, Duration: 30 day, Stop date: 03/08/17 0:00:00 CDT Start Date: 02/06/17 Stop Date: 02/06/17 Status: Canceled heparin 5,000 unit, 1 mL, Route: SUB-Q, Drug form: INJ, Q8H, Dosing Weight 72.727, kg, S tart date: 02/06/17 9:00:00 CDT, Stop date: 03/08/17 0:00:00 CDT Notes: porcine heparin Start Date: 02/06/17 Stop Date: 02/07/17 Status: Discontinued insulin aspart 10 unit, 0.1 mL, Route: SUB-Q, Drug form: SOLN, TID-Before Meals, Dosing Weight 72.727, kg, PRN Blood Glucose Results, Start date: 02/06/17 0:35:00 CDT, Duratio n: 30 day, Stop date: 03/08/17 0:34:00 CDT Notes: Roll in palms of hands gently; Do not shake vigorously. (Same as: Rigo Young)"single patient use only"WASTE: F/P - Black; E - Municipal Trash Bin Stable f or 28 days at room temperature.Expires in days from Date Start Date: 02/06/17 Stop Date: 02/06/17 Status: Discontinued insulin aspart 4 unit, 0.04 mL, Route: SUB-Q, Drug form: SOLN, TID-Before Meals, Dosing Weight 72.727, kg, PRN Blood Glucose Results, Start date: 02/06/17 0:35:00 CDT, Duratio n: 30 day, Stop date: 03/08/17 0:34:00 CDT Notes: Roll in palms of hands gently; Do not shake vigorously. (Same as: NovoTRACI G)"single patient use only"WASTE: F/P - Black; E - Municipal Trash Bin Stable f or 28 days at room temperature.Expires in days from Date Start Date: 02/06/17 Stop Date: 02/06/17 Status: Discontinued insulin aspart 8 unit, 0.08 mL, Route: SUB-Q, Drug form: SOLN, TID-Before Meals, Dosing Weight 72.727, kg, PRN Blood Glucose Results, Start date: 02/06/17 0:35:00 CDT, Duratio n: 30 day, Stop date: 03/08/17 0:34:00 CDT Notes: Roll in palms of hands gently; Do not shake vigorously. (Same as: NovoTRACI G)"single patient use only"WASTE: F/P - Black; E - Municipal Trash Bin Stable f or 28 days at room temperature.Expires in days from Date Start Date: 02/06/17 Stop Date: 02/06/17 Status: Discontinued insulin aspart 6 unit, 0.06 mL, Route: SUB-Q, Drug form: SOLN, TID-Before Meals, Dosing Weight 72.727, kg, PRN Blood Glucose Results, Start date: 02/06/17 0:35:00 CDT, Duratio n: 30 day, Stop date: 03/08/17 0:34:00 CDT Notes: Roll in palms of hands gently; Do not shake vigorously. (Same as: NovoTRACI G)"single patient use only"WASTE: F/P - Black; E - Municipal Trash Bin Stable f or 28 days at room temperature.Expires in days from Date Start Date: 02/06/17 Stop Date: 02/06/17 Status: Discontinued insulin aspart 2 unit, 0.02 mL, Route: SUB-Q, Drug form: SOLN, TID-Before Meals, Dosing Weight 72.727, kg, PRN Blood Glucose Results, Start date: 02/06/17 0:35:00 CDT, Duratio n: 30 day, Stop date: 03/08/17 0:34:00 CDT Notes: Roll in palms of hands gently; Do not shake vigorously. (Same as: NovoTRACI G)"single patient use only"WASTE: F/P - Black; E - [facility] Trash Bin Stable f or 28 days at room temperature.Expires in days from Date Start Date: 02/06/17 Stop Date: 02/06/17 Status: Discontinued insulin detemir 100 units/mL subcutaneous solution 10 unit, SUB-Q, BID-Before Meals, # 10 mL, 3 Refill(s) Start Date: 02/07/17 Stop Date: 06/07/17 Status: Ordered Insulin regular 2 unit, 0.02 mL, Route: SUB-Q, Drug form: SOLN, TID-Before Meals, Dosing Weight 72.727, kg, PRN Blood Glucose Results, Start date: 02/06/17 18:18:00 CDT, Durati on: 30 day, Stop date: 03/08/17 18:17:00 CDT Notes: (Same as: Humulin R) Roll in palms of hands gently; Do not shake vigorou sly. "single patient use only"(Restricted to patients requiring a dose > 60 units)WASTE: F/P - Black; E - Municipal Trash Bin Stable for 28 days at room temperatureExpires in days from Date Start Date: 02/06/17 Stop Date: 02/07/17 Status: Discontinued Insulin regular 4 unit, 0.04 mL, Route: SUB-Q, Drug form: SOLN, TID-Before Meals, Dosing Weight 72.727, kg, PRN Blood Glucose Results, Start date: 02/06/17 18:18:00 CDT, Durati on: 30 day, Stop date: 03/08/17 18:17:00 CDT Notes: (Same as: Humulin R) Roll in palms of hands gently; Do not shake vigorou sly. "single patient use only"(Restricted to patients requiring a dose > 60 units)WASTE: F/P - Black; E - [facility] Trash Bin Stable for 28 days at room temperatureExpires in days from Date Start Date: 02/06/17 Stop Date: 02/07/17 Status: Discontinued Insulin regular 6 unit, 0.06 mL, Route: SUB-Q, Drug form: SOLN, TID-Before Meals, Dosing Weight 72.727, kg, PRN Blood Glucose Results, Start date: 02/06/17 18:18:00 CDT, Durati on: 30 day, Stop date: 03/08/17 18:17:00 CDT Notes: (Same as: Humulin R) Roll in palms of hands gently; Do not shake vigorou sly. "single patient use only"(Restricted to patients requiring a dose > 60 units)WASTE: F/P - Black; E - [facility] Trash Bin Stable for 28 days at room temperatureExpires in days from Date Start Date: 02/06/17 Stop Date: 02/07/17 Status: Discontinued Insulin regular 8 unit, 0.08 mL, Route: SUB-Q, Drug form: SOLN, TID-Before Meals, Dosing Weight 72.727, kg, PRN Blood Glucose Results, Start date: 02/06/17 18:18:00 CDT, Durati on: 30 day, Stop date: 03/08/17 18:17:00 CDT Notes: (Same as: Humulin R) Roll in palms of hands gently; Do not shake vigorou sly. "single patient use only"(Restricted to patients requiring a dose > 60 units)WASTE: F/P - Black; E - [facility] Trash Bin Stable for 28 days at room temperatureExpires in days from Date Start Date: 02/06/17 Stop Date: 02/07/17 Status: Discontinued Insulin regular 10 unit, 0.1 mL, Route: SUB-Q, Drug form: SOLN, TID-Before Meals, Dosing Weight 72.727, kg, PRN Blood Glucose Results, Start date: 02/06/17 18:18:00 CDT, Durati on: 30 day, Stop date: 03/08/17 18:17:00 CDT Notes: (Same as: Humulin R) Roll in palms of hands gently; Do not shake vigorou sly. "single patient use only"(Restricted to patients requiring a dose > 60 units)WASTE: F/P - Black; E - [facility] Trash Bin Stable for 28 days at room temperatureExpires in days from Date Start Date: 02/06/17 Stop Date: 02/07/17 Status: Discontinued Insulin regular 4 unit, 0.04 mL, Route: SUB-Q, Drug form: SOLN, Bedtime, Dosing Weight 72.727, k g, PRN Blood Glucose Results, Start date: 02/06/17 18:18:00 CDT, Duration: 30 da y, Stop date: 03/08/17 18:17:00 CDT Notes: (Same as: Humulin R) Roll in palms of hands gently; Do not shake vigorou sly. "single patient use only"(Restricted to patients requiring a dose > 60 units)WASTE: F/P - Black; E - Municipal Trash Bin Stable for 28 days at room temperatureExpires in days from Date Start Date: 02/06/17 Stop Date: 02/07/17 Status: Discontinued Insulin regular 1 unit, 0.01 mL, Route: SUB-Q, Drug form: SOLN, Bedtime, Dosing Weight 72.727, k g, PRN Blood Glucose Results, Start date: 02/06/17 18:18:00 CDT, Duration: 30 da y, Stop date: 03/08/17 18:17:00 CDT Notes: (Same as: Humulin R) Roll in palms of hands gently; Do not shake vigorou sly. "single patient use only"(Restricted to patients requiring a dose > 60 units)WASTE: F/P - Black; E - Municipal Trash Bin Stable for 28 days at room temperatureExpires in days from Date Start Date: 02/06/17 Stop Date: 02/07/17 Status: Discontinued Insulin regular 2 unit, 0.02 mL, Route: SUB-Q, Drug form: SOLN, Bedtime, Dosing Weight 72.727, k g, PRN Blood Glucose Results, Start date: 02/06/17 18:18:00 CDT, Duration: 30 da y, Stop date: 03/08/17 18:17:00 CDT Notes: (Same as: Humulin R) Roll in palms of hands gently; Do not shake vigorou sly. "single patient use only"(Restricted to patients requiring a dose > 60 units)WASTE: F/P - Black; E - Municipal Trash Bin Stable for 28 days at room temperatureExpires in days from Date Start Date: 02/06/17 Stop Date: 02/07/17 Status: Discontinued Insulin regular 3 unit, 0.03 mL, Route: SUB-Q, Drug form: SOLN, Bedtime, Dosing Weight 72.727, k g, PRN Blood Glucose Results, Start date: 02/06/17 18:18:00 CDT, Duration: 30 da y, Stop date: 03/08/17 18:17:00 CDT Notes: (Same as: Humulin R) Roll in palms of hands gently; Do not shake vigorou sly. "single patient use only"(Restricted to patients requiring a dose > 60 units)WASTE: F/P - Black; E - Municipal Trash Bin Stable for 28 days at room temperatureExpires in days from Date Start Date: 02/06/17 Stop Date: 02/07/17 Status: Discontinued Insulin regular 5 unit, Route: IVP, ONCE, Dosing Weight 72.727, kg, Priority: STAT, Start date: 02/05/17 13:20:00 CDT, Stop date: 02/05/17 13:20:00 CDT Start Date: 02/05/17 Stop Date: 02/05/17 Status: Completed Insulin regular 5 unit, Route: IV, ONCE, Dosing Weight 72.727, kg, Start date: 02/05/17 18:00:00 CDT, Stop date: 02/05/17 18:00:00 CDT Start Date: 02/05/17 Stop Date: 02/05/17 Status: Completed Isolyte S PH-7.4 (Bolus) IV 3,000 mL, Route: IV, Dosing Weight 72.727, kg, ONCE, Start date: 02/05/17 18:00: 00 CDT, Stop date: 02/05/17 18:00:00 CDT Start Date: 02/05/17 Stop Date: 02/05/17 Status: Discontinued lactobacillus acidophilus oral tablet, chewable 1 tab, CHEW, Daily, # 30 tab, 0 Refill(s) Start Date: 02/07/17 Stop Date: 03/09/17 Status: Ordered Lasix 20 mg, Route: IVP, Drug form: INJ, ONCE, Dosing Weight 72.727, kg, Start date: 0 02/05/17 19:19:00 CDT, Stop date: 02/05/17 19:19:00 CDT Start Date: 02/05/17 Stop Date: 02/05/17 Status: Completed Levemir 10 unit, 0.1 mL, Route: SUB-Q, Drug form: SOLN, Q12H, Dosing Weight 72.727, kg, Start date: 02/06/17 18:17:00 CDT, Duration: 30 day, Stop date: 03/08/17 21:00:0 0 CDT Notes: Same as [employer] not hold insulin without contacting prescriberWASTE: F/ P - Black; E - [facility] Trash Bin "single patient use only" Start Date: 02/06/17 Stop Date: 02/07/17 Status: Discontinued lisinopril 40 mg oral tablet 40 mg=1 tab, PO, Daily, # 30 tab, 3 Refill(s) Start Date: 02/07/17 Status: Ordered magnesium oxide 800 mg, 2 tab, Route: PO, Drug form: TAB, PRN, Dosing Weight 72.727, kg, PRN Abn ormal Lab Result, FOR ICU USE ONLY, Start date: 02/06/17 1:08:00 CDT, Duration: 30 day, Stop date: 03/08/17 1:07:00 CDT Notes: (Same as: Mag-Ox 400)Magnesium oxide [id number] elemental magnesiumDose= ____mg magnesium oxide (___mg elemental magnesium) Start Date: 02/06/17 Stop Date: 02/06/17 Status: Discontinued magnesium sulfate 2 gm, 50 mL, Route: IVPB, Drug form: INJ, PRN, Dosing Weight 72.727, kg, PRN Abn ormal Lab Result, Start date: 02/06/17 1:08:00 CDT, Duration: 30 day, Stop date: 03/08/17 1:07:00 CDT, FOR ICU USE ONLY Notes: WASTE: F/P - Sink; E - Municipal Trash Bin Start Date: 02/06/17 Stop Date: 02/06/17 Status: Discontinued NS (Bolus) IV 500 mL, 500 ml/hr, Infuse Over: 1 hr, Route: IV, 500, Drug form: INJ, ONCE, Prio rity: STAT, Dosing Weight 72.727 kg, Start date: 02/07/17 11:41:00 CDT, Duration : 1 doses or times, Stop date: 02/07/17 11:41:00 CDT Start Date: 02/07/17 Stop Date: 02/07/17 Status: Completed Pepto-Bismol 262 mg oral tablet, chewable 524 mg=2 tab, CHEW, Daily, X 14 day, # 28 tab, 0 Refill(s) Start Date: 02/07/17 Stop Date: 02/21/17 Status: Ordered piperacillin-tazobactam 4.5 gm, Route: IVPB, Drug form: INJ, ONCE, Dosing Weight 72.727, kg, Priority: S TAT, Start date: 02/05/17 12:47:00 CDT, Duration: 1 doses or times, Stop date: 0 02/05/17 12:47:00 CDT, ABX Indication: Bacteremia Notes: (Same as: Zosyn)Dosing based on Piperacillin component MEDICATION WA LUCIUS Product Size: 4500 mgProduct Wasted: _0__ mg Start Date: 02/05/17 Stop Date: 02/05/17 Status: Completed potassium chloride 20 mEq, 15 mL, Route: NJ, Drug form: LIQ, PRN, Dosing Weight 72.727, kg, PRN Abn ormal Lab Result, Start date: 02/06/17 1:08:00 CDT, Duration: 30 day, Stop date: 03/08/17 1:07:00 CDT, FOR ICU USE ONLY Notes: (Same as: Potassium Chloride) Start Date: 02/06/17 Stop Date: 02/06/17 Status: Discontinued potassium chloride 20 mEq, 1 tab, Route: PO, Drug form: ERTAB, PRN, Dosing Weight 72.727, kg, PRN A bnormal Lab Result, Start date: 02/06/17 1:08:00 CDT, Duration: 30 day, Stop megan e: 03/08/17 1:07:00 CDT, FOR ICU USE ONLY Notes: (Same as: K-Dur 20)"Do Not Crush" With food and full glass of water Start Date: 02/06/17 Stop Date: 02/06/17 Status: Discontinued potassium chloride 20 mEq, 100 mL, Route: IVPB, Drug form: INJ, PRN, Dosing Weight 72.727, kg, PRN Abnormal Lab Result, Via central line, Start date: 02/06/17 1:08:00 CDT, Duratio n: 30 day, Stop date: 03/08/17 1:07:00 CDT, FOR ICU USE ONLY Notes: (Same as: KCL) Infuse no faster than 10 mEq/hr if given peripherally. Start Date: 02/06/17 Stop Date: 02/06/17 Status: Discontinued potassium chloride 10 mEq, 50 mL, Route: IVPB, Drug form: INJ, PRN, Dosing Weight 72.727, kg, PRN A bnormal Lab Result, Via peripheral line, Start date: 02/06/17 1:08:00 CDT, Durat ion: 30 day, Stop date: 03/08/17 1:07:00 CDT, FOR ICU USE ONLY Notes: (Same as: KCL) Infuse over 2 hours. Start Date: 02/06/17 Stop Date: 02/06/17 Status: Discontinued potassium phosphate + sodium chloride 0.9% INJ 250 mL 15 mmol, 5 mL, Route: IVPB, PRN, Dosing Weight 72.727, kg, PRN Abnormal Lab Resu lt, Start date: 02/06/17 1:08:00 CDT, Duration: 30 day, Stop date: 03/08/17 1:07 :00 CDT, FOR ICU USE ONLY Notes: (Same as: K Phosphate.) 1 mMol phoshate has 1.47 mEq potassium Infuse o keturah 4 hours Start Date: 02/06/17 Stop Date: 02/06/17 Status: Discontinued potassium phosphate + sodium chloride 0.9% INJ 250 mL 30 mmol, 10 mL, Route: IVPB, PRN, Dosing Weight 72.727, kg, PRN Abnormal Lab Res ult, Start date: 02/06/17 1:08:00 CDT, Duration: 30 day, Stop date: 03/08/17 1:0 7:00 CDT, FOR ICU USE ONLY Notes: (Same as: K Phosphate.) 1 mMol phoshate has 1.47 mEq potassium Infuse o keturah 4 hours Start Date: 02/06/17 Stop Date: 02/06/17 Status: Discontinued potassium phosphate + sodium chloride 0.9% INJ 250 mL 45 mmol, 15 mL, Route: IVPB, PRN, Dosing Weight 72.727, kg, PRN Abnormal Lab Res ult, Start date: 02/06/17 1:08:00 CDT, Duration: 30 day, Stop date: 03/08/17 1:0 7:00 CDT, FOR ICU USE ONLY Notes: (Same as: K Phosphate.) 1 mMol phoshate has 1.47 mEq potassium Infuse o keturah 4 hours Start Date: 02/06/17 Stop Date: 02/06/17 Status: Discontinued potassium phosphate-sodium phosphate 250 mg-280 mg-160 mg oral powder for recons titution 2 pkt, Route: PO, Drug Form: PDR/REC, Dosing Weight 72.727, kg, PRN, PRN Abnorma l Lab Result, FOR ICU USE ONLY, Start date: 02/06/17 1:08:00 CDT, Duration: 30 d ay, Stop date: 03/08/17 1:07:00 CDT Notes: (Same as: Phos-NaK) Each 1.5 gm pkt has 250mg phosphorous. Mix w/2.5oz w ater and stir. Start Date: 02/06/17 Stop Date: 02/06/17 Status: Discontinued pregabalin 150 mg, 2 cap, Route: PO, Drug form: CAP, Q12H, Dosing Weight 72.727, kg, Start date: 02/06/17 21:00:00 CDT, Duration: 30 day, Stop date: 03/08/17 9:00:00 CDT Notes: (Same as: Lyrica) Start Date: 02/06/17 Stop Date: 02/07/17 Status: Discontinued pregabalin 75 mg oral capsule 150 mg=2 cap, PO, BID, # 120 cap, 0 Refill(s) Start Date: 02/07/17 Stop Date: 03/09/17 Status: Ordered ProAir HFA 90 mcg/inh inhalation aerosol with adapter 180 microgram=2 puff, INHALER, Q6H, PRN for wheezing, # 1 ea, 3 Refill(s) Start Date: 02/07/17 Stop Date: 06/07/17 Status: Ordered QUEtiapine 25 mg, 1 tab, Route: PO, Drug form: TAB, BID, Dosing Weight 72.727, kg, Start da te: 02/06/17 9:00:00 CDT, Duration: 30 day, Stop date: 03/07/17 17:00:00 CDT Notes: (Same as: SEROquel) Start Date: 02/06/17 Stop Date: 02/07/17 Status: Discontinued QUEtiapine 25 mg oral tablet 25 mg=1 tab, PO, BID, # 60 tab, 0 Refill(s) Start Date: 02/07/17 Stop Date: 03/09/17 Status: Ordered QUEtiapine 25 mg oral tablet 25 mg=1 tab, PO, BID Start Date: 02/05/17 Stop Date: 02/07/17 Status: Discontinued sodium bicarbonate 100 mEq + water for injection, sterile 1,000 mL 1,000 mL, Rate: Infuse as directed, Dosing Weight 72.727, kg, Route: IV, Total V olume: 1,100 mL, Start Date: 02/05/17 18:13:00 CDT, Duration: 30 day, Stop date: 03/07/17 18:12:00 CDT, Replace Every: 24 hr Notes: (sodium bicarb 8.4% (1 mEq/ml) 50 ml VL) Start Date: 02/05/17 Stop Date: 02/05/17 Status: Discontinued sodium bicarbonate 150 mEq + water for injection, sterile 1,000 mL 1,000 mL, Rate: 125 ml/hr, Infuse over: 9.2 hr, Route: IV, Dosing Weight 72.727 kg, Total Volume: 1,150 mL, Priority: STAT, Start date: 02/05/17 21:25:00 CDT, D uration: 30 day, Stop date: 03/07/17 21:24:00 CDT Notes: (sodium bicarb 8.4% (1 mEq/ml) 50 ml VL) Start Date: 02/05/17 Stop Date: 02/06/17 Status: Discontinued Sodium Chloride 0.9% (Bolus) IV 3,000 mL, Infuse Over: 1 hr, Route: IV, ONCE, Priority: STAT, Dosing Weight 72.7 27 kg, Start date: 02/05/17 18:10:00 CDT, Duration: 1 doses or times, Stop date: 02/05/17 18:10:00 CDT Start Date: 02/05/17 Stop Date: 02/05/17 Status: Completed Sodium Chloride 0.9% (Bolus) IV 1,000 mL, 1000 ml/hr, Infuse Over: 1 hr, Route: IV, 1,000, Drug form: INJ, ONCE, Priority: STAT, Dosing Weight 72.727 kg, Start date: 02/05/17 15:08:00 CDT, Dur ation: 1 doses or times, Stop date: 02/05/17 15:08:00 CDT Start Date: 02/05/17 Stop Date: 02/05/17 Status: Completed Sodium Chloride 0.9% (Bolus) IV 1,000 mL, Infuse Over: 1 hr, Route: IV, ONCE, Priority: STAT, Dosing Weight 72.7 27 kg, Start date: 02/05/17 12:47:00 CDT, Duration: 1 doses or times, Stop date: 02/05/17 12:47:00 CDT Start Date: 02/05/17 Stop Date: 02/05/17 Status: Completed sodium phosphate + sodium chloride 0.9% INJ 250 mL 45 mmol, 15 mL, Route: IVPB, PRN, Dosing Weight 72.727, kg, PRN Abnormal Lab Res ult, Start date: 02/06/17 1:08:00 CDT, Duration: 30 day, Stop date: 03/08/17 1:0 7:00 CDT, FOR ICU USE ONLY Start Date: 02/06/17 Stop Date: 02/06/17 Status: Discontinued sodium phosphate + sodium chloride 0.9% INJ 250 mL 15 mmol, 5 mL, Route: IVPB, PRN, Dosing Weight 72.727, kg, PRN Abnormal Lab Resu lt, Start date: 02/06/17 1:08:00 CDT, Duration: 30 day, Stop date: 03/08/17 1:07 :00 CDT, FOR ICU USE ONLY Start Date: 02/06/17 Stop Date: 02/06/17 Status: Discontinued sodium phosphate + sodium chloride 0.9% INJ 250 mL 30 mmol, 10 mL, Route: IVPB, PRN, Dosing Weight 72.727, kg, PRN Abnormal Lab Res ult, Start date: 02/06/17 1:08:00 CDT, Duration: 30 day, Stop date: 03/08/17 1:0 7:00 CDT, FOR ICU USE ONLY Start Date: 02/06/17 Stop Date: 02/06/17 Status: Discontinued sodium phosphate + sodium chloride 0.9% INJ 250 mL 30 mmol, 10 mL, Route: IVPB, ONCE, Dosing Weight 72.727, kg, Start date: 7 5:50:00 CDT, Stop date: 02/07/17 5:50:00 CDT Start Date: 02/07/17 Stop Date: 02/07/17 Status: Completed spironolactone 50 mg oral tablet 100 mg=2 tab, PO, Daily, # 60 tab, 3 Refill(s) Start Date: 02/07/17 Stop Date: 06/07/17 Status: Ordered sterile water 1000 mL + sodium bicarbonate 100 mEq 1,000 mL, Rate: Infuse as directed, Dosing Weight 72.727, kg, Route: IV, Total V olume: 1,000 mL, Start Date: 02/05/17 18:10:00 CDT, Duration: 30 day, Stop date: 03/07/17 18:09:00 CDT, Replace Every: 24 hr Start Date: 02/05/17 Stop Date: 02/05/17 Status: Discontinued tramadol 50 mg oral tablet 50 mg=1 tab, PO, TID, PRN prn pain Start Date: 02/05/17 Stop Date: 02/07/17 Status: Discontinued tramadol 50 mg oral tablet 50 mg=1 tab, PO, TID, PRN prn pain, X 14 day, # 42 tab, 0 Refill(s) Start Date: 02/07/17 Stop Date: 02/21/17 Status: Ordered vancomycin 125 mg, 2.5 mL, Route: PO, Drug form: SOLN, ABXQ6H, Dosing Weight 72.727, kg, St art date: 02/06/17 1:00:00 CDT, Duration: 10 day, Stop date: 02/15/17 19:00:00 C DT, ABX Indication: Other (specify in Comments) Notes: TIME CRITICAL MEDICATIONConcentration=50 mg/ml. Keep in refrigerator. F or oral use only. Vancomycin 1gm vial are used and reconstituted with 20ml of s terile water for a concentration of 50mg/ml. Draw up in jeri po syringes. DO N OT USE IV SYRINGES. Start Date: 02/06/17 Stop Date: 02/07/17 Status: Discontinued vancomycin 125 mg, 2.5 mL, Route: PO, Drug form: SOLN, ONCE, Dosing Weight 72.727, kg, Star t date: 02/05/17 13:43:00 CDT, Stop date: 02/05/17 13:43:00 CDT, ABX Indication: Bacteremia Start Date: 02/05/17 Stop Date: 02/05/17 Status: Completed vancomycin 1.5 gm, 250 mL, Route: IVPB, Drug form: INJ, ONCE, Dosing Weight 72.727, kg, Taylor ority: STAT, Start date: 02/05/17 12:47:00 CDT, Duration: 1 doses or times, Stop date: 02/05/17 12:47:00 CDT, ABX Indication: Bacteremia Notes: TIME CRITICAL MEDICATIONSame as: Vancocin-NS (premixed)Infusion rate< 1000 mg: infuse over 1 [id number] - 1500 mg: infuse over 1.5 [id number] - 2000 mg: infuse over 2 hours> 2001 mg: infuse over 2.5 hours Start Date: 02/05/17 Stop Date: 02/05/17 Status: Completed venlafaxine 75 mg, 1 cap, Route: PO, Drug form: ERCAP, Daily, Dosing Weight 72.727, kg, Star t date: 02/06/17 9:00:00 CDT, Duration: 30 day, Stop date: 03/07/17 9:00:00 CDT Notes: Do not open, crush, or chew.(Same As: Effexor XR) Start Date: 02/06/17 Stop Date: 02/07/17 Status: Discontinued venlafaxine 75 mg oral capsule, extended release 75 mg=1 cap, PO, Daily, # 30 cap, 0 Refill(s) Start Date: 02/07/17 Stop Date: 03/09/17 Status: Ordered Results ELECTROLYTES 1 2 3 Most recent to oldest [Reference Range]: 142 mEq/L (02/07/17 3:04 AM) 139 mEq/L (02/06/17 11:40 AM) 143 mEq/L (02/06/17 4:59 AM) Sodium Lvl [135-145 mEq/L] 4.8 mEq/L (02/07/17 3:04 AM) 5.2 mEq/L *HI* (02/06/17 11:40 AM) 5.4 mEq/L *HI* (02/06/17 4:59 AM) Potassium Lvl [3.5-5.1 mEq/L] 110 mEq/L *HI* (02/07/17 3:04 AM) 108 mEq/L (02/06/17 11:40 AM) 113 mEq/L *HI* (02/06/17 4:59 AM) Chloride Lvl [95-109 mEq/L] 25 mEq/L (02/07/17 3:04 AM) 25 mEq/L (02/06/17 11:40 AM) 22 mEq/L *LOW* (02/06/17 4:59 AM) CO2 [24-32 mEq/L] 11.8 mEq/L (02/07/17 3:04 AM) 11.2 mEq/L (02/06/17 11:40 AM) 13.4 mEq/L (02/06/17 4:59 AM) AGAP [10.0-20.0 mEq/L] CHEM PANEL 1 2 3 Most recent to oldest [Reference Range]: 1.00 mg/dL (02/07/17 3:04 AM) 1.05 mg/dL (02/06/17 11:40 AM) 1.09 mg/dL (02/06/17 4:59 AM) Creatinine Lvl [0.50-1.40 mg/dL] 67 mL/min/1.73m2 1 *NA* (02/07/17 3:04 AM) 63 mL/min/1.73m2 2 *NA* (02/06/17 11:40 AM) 60 mL/min/1.73m2 3 *NA* (02/06/17 4:59 AM) eGFR 33 mg/dL *HI* (02/07/17 3:04 AM) 36 mg/dL *HI* (02/06/17 11:40 AM) 47 mg/dL *HI* (02/06/17 4:59 AM) BUN [7-22 mg/dL] 33 *HI* (02/07/17 3:04 AM) 44 *HI* (02/06/17 2:04 AM) B/C Ratio [6-25] 183 mg/dL *HI* (02/07/17 3:04 AM) 206 mg/dL *HI* (02/06/17 11:40 AM) 136 mg/dL *HI* (02/06/17 4:59 AM) Glucose Lvl [70-99 mg/dL] 6.6 g/dL (02/07/17 3:04 AM) 6.4 g/dL (02/06/17 2:04 AM) 9.0 g/dL *HI* (02/05/17 1:51 PM) Total Protein [6.4-8.4 g/dL] 2.7 g/dL *LOW* (02/07/17 3:04 AM) 2.7 g/dL *LOW* (02/06/17 2:04 AM) 3.7 g/dL (02/05/17 1:51 PM) Albumin Lvl [3.5-5.0 g/dL] 3.9 g/dL (02/07/17 3:04 AM) 3.7 g/dL (02/06/17 2:04 AM) 5.3 g/dL *HI* (02/05/17 1:51 PM) Globulin [2.7-4.2 g/dL] 0.7 (02/07/17 3:04 AM) 0.7 (02/06/17 2:04 AM) 0.7 (02/05/17 1:51 PM) A/G Ratio [0.7-1.6] 8.4 mg/dL *LOW* (02/07/17 3:04 AM) 7.6 mg/dL *LOW* (02/06/17 11:40 AM) 8.4 mg/dL *LOW* (02/06/17 4:59 AM) Calcium Lvl [8.5-10.5 mg/dL] 2.1 mg/dL *LOW* (02/07/17 3:04 AM) 3.0 mg/dL (02/06/17 4:59 AM) 3.6 mg/dL (02/06/17 2:04 AM) Phosphorus [2.5-4.5 mg/dL] 2.4 mg/dL (02/07/17 3:04 AM) 1.7 mg/dL *LOW* (02/06/17 4:59 AM) 1.7 mg/dL *LOW* (02/06/17 2:04 AM) Magnesium Lvl [1.8-2.4 mg/dL] 14 unit/L (02/07/17 3:04 AM) 15 unit/L (02/06/17 2:04 AM) 16 unit/L (02/05/17 1:51 PM) ALT [0-65 unit/L] 15 unit/L (02/07/17 3:04 AM) 12 unit/L (02/06/17 2:04 AM) 21 unit/L (02/05/17 1:51 PM) AST [0-37 unit/L] 120 unit/L (02/07/17 3:04 AM) 102 unit/L (02/06/17 2:04 AM) 145 unit/L *HI* (02/05/17 1:51 PM) Alk Phos [39-136 unit/L] 0.3 mg/dL (02/07/17 3:04 AM) 0.3 mg/dL (02/06/17 2:04 AM) 0.4 mg/dL (02/05/17 1:51 PM) Bili Total [0.2-1.3 mg/dL] 0.1 mg/dL (02/05/17 1:51 PM) Bili Direct [0.0-0.3 mg/dL] 0.3 mg/dL (02/05/17 1:51 PM) Bili Indirect [0.0-1.0 mg/dL] 1.9 mMol/L (02/06/17 11:40 AM) 2.1 mMol/L (02/06/17 4:59 AM) 2.2 mMol/L (02/06/17 2:04 AM) Lactic Acid Lvl [0.5-2.2 mMol/L] 2.4 mmol/L *HI* (02/05/17 11:34 PM) 2.7 mmol/L *HI* (02/05/17 8:37 PM) 2.1 mmol/L (02/05/17 6:20 PM) Lactic Acid WB [0.5-2.2 mmol/L] 1Result Comment: The eGFR is calculated using [...] tiplied by the estimated BMI. CARDIAC ENZYMES 1 2 3 Most recent to oldest [Reference Range]: 38 unit/L (02/05/17 2:42 PM) Total CK [12-191 unit/L] <0.02 ng/mL (02/05/17 12:48 PM) Troponin-I [0.00-0.40 ng/mL] MYOGLOBIN 1 2 3 Most recent to oldest [Reference Range]: 34 ng/mL (02/05/17 2:42 PM) Myoglobin [25-72 ng/mL] SPECIAL CHEMISTRY 1 2 3 Most recent to oldest [Reference Range]: 8.5 % *HI* (02/06/17 2:04 AM) Hgb A1C [<=5.6 %] PARATHYROID PROFILE 1 2 3 Most recent to oldest [Reference Range]: 1.18 mMol/L (02/07/17 3:04 AM) 1.18 mMol/L (02/06/17 4:59 AM) Ca Ion WB [1.05-1.25 mMol/L] 1.11 mMol/L (02/07/17 3:04 AM) 1.12 mMol/L (02/06/17 4:59 AM) Ca Norm WB [1.05-1.25 mMol/L] URINE AND STOOL 1 2 3 Most recent to oldest [Reference Range]: Clear (02/05/17 3:03 PM) UA Turbidity [Clear] Yellow *NA* (02/05/17 3:03 PM) UA Color [Yellow] 5.5 (02/05/17 3:03 PM) UA pH [5.0-8.0] 1.015 (02/05/17 3:03 PM) UA Spec Grav [<=1.030] 500 mg/dL *ABN* (02/05/17 3:03 PM) UA Glucose [Negative mg/dL] Negative (02/05/17 3:03 PM) UA Blood [Negative] Negative mg/dL *NA* (02/05/17 3:03 PM) UA Ketones [Negative mg/dL] Negative mg/dL (02/05/17 3:03 PM) UA Protein [Negative mg/dL] 0.2 EU/dL (02/05/17 3:03 PM) UA Urobilinogen [0.1-1.0 EU/dL] Negative *NA* (02/05/17 3:03 PM) UA Bili [Negative] Negative (02/05/17 3:03 PM) UA Leuk Est [Negative] Negative (02/05/17 3:03 PM) UA Nitrite [Negative] None Seen (02/05/17 3:03 PM) UA WBC [None Seen] None Seen (02/05/17 3:03 PM) UA RBC [0-2] Rare /LPF (02/05/17 3:03 PM) UA Sq Epi [Few /LPF] Occasional /HPF *ABN* (02/05/17 3:03 PM) UA Amorph Ginna [None Seen /HPF] Negative (02/06/17 9:42 AM) Occult Bld Stl [Negative] None Seen (02/06/17 9:42 AM) Fecal Leukocyte IMMUNOLOGY 1 2 3 Most recent to oldest [Reference Range]: <2.9 (02/05/17 2:41 PM) CRP [<=2.9] Negative (02/06/17 2:04 AM) HIV. [Negative] Negative *NA* (02/06/17 2:04 AM) Hep Bs Ag [Negative] Negative *NA* (02/06/17 2:04 AM) Hep B Core IgM [Negative] Negative *NA* (02/06/17 2:04 AM) Hep A IgM [Negative] Positive *ABN* (02/06/17 2:04 AM) Hep C Ab HEMATOLOGY 1 2 3 Most recent to oldest [Reference Range]: 7.1 K/CMM (02/07/17 3:04 AM) 7.1 K/CMM (02/06/17 2:04 AM) 8.3 K/CMM (02/05/17 12:48 PM) WBC [3.7-10.4 K/CMM] 3.79 M/CMM *LOW* (02/07/17 3:04 AM) 3.55 M/CMM *LOW* (02/06/17 2:04 AM) 4.84 M/CMM (02/05/17 12:48 PM) RBC [4.20-5.40 M/CMM] 10.5 g/dL *LOW* (02/07/17 3:04 AM) 10.0 g/dL *LOW* (02/06/17 11:40 AM) 9.9 g/dL *LOW* (02/06/17 2:04 AM) Hgb [12.0-16.0 g/dL] 31.1 % *LOW* (02/07/17 3:04 AM) 29.6 % *LOW* (02/06/17 11:40 AM) 29.0 % *LOW* (02/06/17 2:04 AM) Hct [36.0-48.0 %] 82.1 fL (02/07/17 3:04 AM) 81.5 fL (02/06/17 2:04 AM) 83.1 fL (02/05/17 12:48 PM) MCV [80.0-98.0 fL] 27.7 pg (02/07/17 3:04 AM) 27.8 pg (02/06/17 2:04 AM) 27.3 pg (02/05/17 12:48 PM) MCH [27.0-31.0 pg] 33.8 g/dL (02/07/17 3:04 AM) 34.1 g/dL (02/06/17 2:04 AM) 32.9 g/dL (02/05/17 12:48 PM) MCHC [32.0-36.0 g/dL] 16.2 % *HI* (02/07/17 3:04 AM) 16.1 % *HI* (02/06/17 2:04 AM) 16.5 % *HI* (02/05/17 12:48 PM) RDW [11.5-14.5 %] 116 K/CMM *LOW* (02/07/17 3:04 AM) 112 K/CMM *LOW* (02/06/17 2:04 AM) 182 K/CMM (02/05/17 12:48 PM) Platelet [133-450 K/CMM] 8.2 fL (02/07/17 3:04 AM) 8.0 fL (02/06/17 2:04 AM) 8.4 fL (02/05/17 12:48 PM) MPV [7.4-10.4 fL] 39.5 % *LOW* (02/07/17 3:04 AM) 50.8 % (02/06/17 2:04 AM) 59.1 % (02/05/17 12:48 PM) Segs [45.0-75.0 %] 52.9 % *HI* (02/07/17 3:04 AM) 43.0 % *HI* (02/06/17 2:04 AM) 35.3 % (02/05/17 12:48 PM) Lymphocytes [20.0-40.0 %] 4.2 % (02/07/17 3:04 AM) 4.1 % (02/06/17 2:04 AM) 2.8 % (02/05/17 12:48 PM) Monocytes [2.0-12.0 %] 3.0 % (02/07/17 3:04 AM) 1.7 % (02/06/17 2:04 AM) 2.1 % (02/05/17 12:48 PM) Eosinophils [0.0-4.0 %] 0.4 % (02/07/17 3:04 AM) 0.4 % (02/06/17 2:04 AM) 0.7 % (02/05/17 12:48 PM) Basophils [0.0-1.0 %] 2.8 K/CMM (02/07/17 3:04 AM) 3.6 K/CMM (02/06/17 2:04 AM) 4.9 K/CMM (02/05/17 12:48 PM) Segs-Bands # [1.5-8.1 K/CMM] 3.8 K/CMM (02/07/17 3:04 AM) 3.1 K/CMM (02/06/17 2:04 AM) 2.9 K/CMM (02/05/17 12:48 PM) Lymphocytes # [1.0-5.5 K/CMM] 0.3 K/CMM (02/07/17 3:04 AM) 0.3 K/CMM (02/06/17 2:04 AM) 0.2 K/CMM (02/05/17 12:48 PM) Monocytes # [0.0-0.8 K/CMM] 0.2 K/CMM (02/07/17 3:04 AM) 0.1 K/CMM (02/06/17 2:04 AM) 0.2 K/CMM (02/05/17 12:48 PM) Eosinophils # [0.0-0.5 K/CMM] 0.1 K/CMM (02/05/17 12:48 PM) Basophils # [0.0-0.2 K/CMM] 32 mm/hr *HI* (02/05/17 2:41 PM) Sed Rate [0-20 mm/hr] 14.2 seconds (02/06/17 2:04 AM) PT [12.0-14.7 seconds] 1.08 (02/06/17 2:04 AM) INR [0.85-1.17] 29.0 seconds (02/06/17 2:04 AM) PTT [22.9-35.8 seconds] MOLECULAR DIAGNOSTIC 1 2 3 Most recent to oldest [Reference Range]: Negative (02/06/17 1:25 PM) C difficile DNA [Negative] Immunizations Given and Recorded Vaccine Date Status [...] No Assessment and Plan Extracted from: Title: Clinical Document Author: Tammy Ni MD Date: [...] as documented in history of present illness. VitalsTmp(F)Tmp(C)YzdjoZEKXFDcpgtDIVzH1NVX4JMMW0 02/07 07:1597.836.48wgsv519/65---[id number]------ 02/07 04:4997.536.49lmid294/75---856009------ 02/07 01:0497.436.81nzyt559/69---888314------ 02/06 20:2297.636.25meem430/73---[id number]------ 02/06 16:249119.52fled427/83---[id number]------ 24 Hr Tmax: 99.3F (37.39c) at 02/06 12:00Vital Signs are the last 5 in the past 48 hours. 24 Hr Tmin: 97.4F (36.33c) at 02/07 01:04Weights are the last 5 in 60 days, plus initial. DateWt(kg)Wt(lb)Ht(cm)Ht(in)MethodBMIBSA 02/07 79.01 173.82Measured 02/05 (initial) 72.73 160.00Estimated 27.51.81 02/05162.56 64.00Stated 24 Hr Point of Care Glucoses 02/07 0811Glucose DHE554 H 02/06 2112Glucose BAR241 H 02/06 1616Glucose NQB928 H 02/06 1201Glucose DMF685 H Most Recent Scores: 02/06/17[place] Fall Score0 02/06/17Braden Score20 02/06/17Glasgow Coma Score15 02/06/17Pain Intensity NRS (0-10)2 Lines, Tubes, and Drains: 02/05/2017 16:00 Peripheral Lines: Antecubital Left 18 gauge Over the needle catheter 02/05/2017 12:40 Peripheral Lines: Antecubital Right 20 gauge Over the needle catheter (no surgical procedures documented) =====FOOD/NUTRITION SERVICES===== Diet Carbohydrate Controlled 02/05/17 23:35:00 CDT, Diabetic/4carb per meal (1800 duncan) Oral Supplements 02/06/17 11:51:00 CDT, LoCarb HiPro (Boost Glucose), 3 cans/units per 24 hours =====SUPERINTENDENT MAINTENANCE SERVICES===== RD/[employer] 02/06/17 11:51:00 CDT, AD 02/06 mod (6/15) =====48 Hr %PO INTAKE===== 02/06 1900Evening Snack Rbtnhxt941 02/06 1843Dinner Qpiaite594 02/06 0400NPO StatusNPO 02/06 0200NPO StatusNPO 02/06 0000NPO StatusNPO (no tube feeding information in past 48hrs) I/O Intake OutputBalance 02/06/2017 7a-3p 334.17 2125.00 -1790.83 3p-11p 350.00 [...] Good strength in BLE and BUE. LABS & DATA 24hr Labs / 0811 Glucose IBO063 H 06 0304 Ca Ion WB1.18 Ca Norm WB1.11 Sodium Mhi441 Potassium Lvl4.8 Chloride Etk512 H CO225 AGAP11.8 Glucose Laa032 H Creatinine Lvl1.00 BUN33 H B/C Ratio33 H Total Protein6.6 Albumin Lvl2.7 L Globulin3.9 A/G Ratio0.7 Calcium Lvl8.4 L ALT14 AST15 Alk Xtur161 Bili Total0.3 eGFR67 Phosphorus2.1 L Magnesium Lvl2.4 WBC7.1 RBC3.79 L Hgb10.5 L Hct31.1 L MCV82.1 MCH27.7 MCHC33.8 RDW16.2 H Kfibjglr448 L MPV8.2 Segs39.5 L Monocytes4.2 Cnlndazgrud90.9 H Eosinophils3.0 Basophils0.4 Segs-Bands #2.8 Lymphocytes #3.8 Monocytes #0.3 Eosinophils #0.2 02/06 2112 Glucose DMX627 H 08 1616 Glucose IWK793 H 08 1325 C difficile DNANegative / 1201 Glucose BON258 H 08 1155 POC A SourceART POC A Temp37.0 POC A pH7.42 POC A JBD967 POC A PO285 POC A QGH159 POC A BE1 POC A O2 Sat97.0 POC A Hct30.0 L POC A K5.3 H POC A Na134 L POC A Ca Ion1.17 POC A LA1.5 POC A Rtf815 H 08 1140 Glucose Ajx503 H BUN36 H Creatinine Lvl1.05 Sodium Dlw227 Potassium Lvl5.2 H Chloride Jqi389 CO225 AGAP11.2 Calcium Lvl7.6 L eGFR63 Lactic Acid Lvl1.9 Hgb10.0 L Hct29.6 L /08 0942 Fecal LeukocyteNone Seen Occult Bld StlNegative 02/06 0204 Hep Bs AgNegative Hep B Core IgMNegative Hep A IgMNegative Hep C AbPositive C Blood Collected: 02/05/2017 12:49 Verified by: MICROBIOLOGY, ANGPROCESSSERVER - 02/06/2017 20:01 No Growth At 1 Day Collected: 02/05/2017 12:49 Verified by: ALYSA PAULINO - 02/06/2017 20:01 Collected: 02/05/2017 12:48 Verified by: LORA, GIUSEPPETRIHEALTH GOOD SAMARITAN HOSPITALDARIUS - 02/06/2017 20:01 No Growth At 1 Day Collected: 02/05/2017 12:48 Verified by: ALYSA PAULINO - 02/06/2017 20:01 X-Rays 02/05/2017 12:47 Chest [...] cardiopulmonary abnormality. Radiologist: Jacqueline Sethi MD ASSESSMENT & PLAN Patient is 51 year old female [...] albuterol - EKG without peaked T waves, MT interval 160 ms, Qtc 467 -K 7.6-->5.2-->4.8, [...] likely discharge home today Tammy Ni MD Family & Community Medicine PGY1 [id number] Addendum FP staff admit note by Pt seen and examined and agree with the above Mark, History and physical reviewed Tere PATEL labs and xray findings reviewed on Pt with multiple co morbid conditions as listed above presented with dehydration and AVI 02/07/2017 which resolved with aggressive hydration 12:38 o/e vs stable lungs clear cvs rrr a/p; AVI due to dehydration related to diarrhea due to ibs resolved one more bolus prior to dc low potassium diet cardiac status follow up as an outpatient diarrhea related to IBS ++ stressors c difficule negative op follow up with pcp care and plan discussed with the team and agree. Extracted from: Title: [place] Renal Author: Casa Becker MD Date: 02/06/17 [id number] Full note dictated. Extracted from: Title: ICU Admission H&P * Author: Maurice Perez [...] from 7.6-->5.2 -EKG without peaked T waves, MT interval 160 ms, Qtc 467 ms -bifasicular [...] 02/05/2017 14:55 Indwelling Urinary Catheter: Urethral 16 Georgian Indwelling/Continuous 02/05/2017 12:40 Peripheral Lines: Antecubital Right 20 gauge Over the needle catheter ppx heparin 5000 units q12 hr dispo: pending improvement clinical status
--- OUTSIDE RECORDS SUMMARY | 2019-05-04 10:41 | XMS REPORT | Summary of Care ---
Author Author [facility] Organization [facility] Address Unknown Phone Unavailable Encounter CHUYITA Thornton(ARIC) [id number] Date(s): 09/08/18 - 09/08/18 [facility] [address] [place] [address]- [phone] Encounter Diagnosis Cellulitis of left toe (Final) - 09/15/18 Cellulitis of right toe (Final) - Type 1 diabetes mellitus with hyperglycemia (Final) - Type 1 diabetes mellitus with diabetic neuropathy, unspecified (Final) - Hypertensive heart disease with heart failure (Final) - Heart failure, unspecified (Final) - Atherosclerotic heart disease of [place] coronary artery without angina pectoris (Final) - Irritable bowel syndrome without diarrhea (Final) - Unspecified cirrhosis of liver (Final) - Unspecified viral hepatitis C without hepatic coma (Final) - Major depressive disorder, single episode, unspecified (Final) - Hyperlipidemia, unspecified (Final) - Sleep apnea, unspecified (Final) - Patient's other noncompliance with medication regimen (Final) - Personal history of Methicillin resistant Staphylococcus aureus infection (Final) - Chronic hyperglycemia (Discharge Diagnosis) - 09/08/18 Cellulitis (Discharge Diagnosis) - 09/08/18 Discharge Disposition: Home or Self Care Attending Physician: Sameul Whitfield MD Vital Signs Most recent to 1 2 oldest [Reference Range]: Height 162.56 cm (09/08/18 4:16 PM) Temperature Oral 98.3 DegF 98.5 DegF [96.4-99.1 DegF] (09/08/18 8:37 PM) (09/08/18 4:16 PM) Blood Pressure 117/83 mmHg 135/70 mmHg [90-140/60-90 mmHg] (09/08/18 8:37 PM) (09/08/18 4:16 PM) Respiratory Rate 18 BRMIN 17 BRMIN [14-20 BRMIN] (09/08/18 8:37 PM) (09/08/18 4:16 PM) Peripheral Pulse 78 bpm 77 bpm Rate [60-100 bpm] (09/08/18 8:37 PM) (09/08/18 4:16 PM) Weight 77.273 kg (09/08/18 4:16 PM) Body Mass Index 29.24 m2 (09/08/18 4:16 PM) Problem List Condition Effective Dates Status Health [...] Adverse Reactions, Alerts Substance Reaction Severity Status Melbeta Active Medications Bactrim DS 800 mg- 160 mg oral tablet 1 tab, PO, BID, X 7 day, # 14 tab, 0 Refill(s) Start Date: 09/08/18 Stop Date: 09/15/18 Status: Completed Levemir 100 units/mL 10 unit, SUB-Q, BID, # 10 ml, 0 Refill(s) Start Date: 09/08/18 Stop Date: 02/23/19 Status: Completed Saline Flush 0.9% 10 mL, Route: IVP, Drug Form: INJ, Dosing Weight 77.273, kg, PRN, PRN Line Flush , Start date: 09/08/18 16:18:00 BOATHOUSE KEEPER, Duration: 30 day, Stop date: 10/08/18 16:17 :00 BOATHOUSE KEEPER Notes: (Same as: BD Posiflush) Start Date: 09/08/18 Stop Date: 09/08/18 Status: Discontinued Results Most recent to 1 oldest [Reference Range]: Neutrophils # 5.2 K/CMM [1.5-8.1 K/CMM] (09/08/18 4:33 PM) Lymphocytes # 1.7 K/CMM [1.0-5.5 K/CMM] (09/08/18 4:33 PM) Monocytes # [0.0-0.8 0.3 K/CMM K/CMM] (09/08/18 4:33 PM) Eosinophils # 0.1 K/CMM [0.0-0.5 K/CMM] (09/08/18 4:33 PM) eGFR 60 mL/min/1.73m2 1 *NA* (09/08/18 4:33 PM) A/G Ratio [0.7-1.6] 0.7 (09/08/18 4:33 PM) Albumin Lvl [3.5-5.0 3.0 g/dL g/dL] *LOW* (09/08/18 4:33 PM) Alk Phos [39-136 148 unit/L unit/L] *HI* (09/08/18 4:33 PM) ALT [0-65 unit/L] 24 unit/L (09/08/18 4:33 PM) AGAP [10.0-20.0 10.7 mEq/L mEq/L] (09/08/18 4:33 PM) AST [0-37 unit/L] 20 unit/L (09/08/18 4:33 PM) B/C Ratio [6-25] 14 (09/08/18 4:33 PM) Basophils [0.0-1.0 0.2 % %] (09/08/18 4:33 PM) BUN [7-22 mg/dL] 15 mg/dL (09/08/18 4:33 PM) Calcium Lvl 8.6 mg/dL [8.5-10.5 mg/dL] (09/08/18 4:33 PM) Chloride Lvl [95-109 104 mEq/L mEq/L] (09/08/18 4:33 PM) CO2 [24-32 mEq/L] 27 mEq/L (09/08/18 4:33 PM) Creatinine Lvl 1.08 mg/dL [0.50-1.40 mg/dL] (09/08/18 4:33 PM) Eosinophils [0.0-4.0 1.1 % %] (09/08/18 4:33 PM) Globulin [2.7-4.2 4.2 g/dL g/dL] (09/08/18 4:33 PM) Glucose Lvl [70-99 422 mg/dL 2 mg/dL] *CRIT* (09/08/18 4:33 PM) Hct [36.0-48.0 %] 35.0 % *LOW* (09/08/18 4:33 PM) Hgb [12.0-16.0 g/dL] 11.6 g/dL *LOW* (09/08/18 4:33 PM) Potassium Lvl 3.7 mEq/L [3.5-5.1 mEq/L] (09/08/18 4:33 PM) Lactic Acid Lvl 1.6 mMol/L [0.5-2.2 mMol/L] (09/08/18 4:33 PM) Lymphocytes 22.9 % [20.0-40.0 %] (09/08/18 4:33 PM) MCH [27.0-31.0 pg] 27.2 pg (09/08/18 4:33 PM) MCHC [32.0-36.0 33.2 g/dL g/dL] (09/08/18 4:33 PM) MCV [80.0-98.0 fL] 82.0 fL (09/08/18 4:33 PM) Monocytes [2.0-12.0 4.2 % %] (09/08/18 4:33 PM) MPV [7.4-10.4 fL] 7.5 fL (09/08/18 4:33 PM) Sodium Lvl [135-145 138 mEq/L mEq/L] (09/08/18 4:33 PM) Platelet [133-450 196 K/CMM K/CMM] (09/08/18 4:33 PM) Segs [45.0-75.0 %] 71.6 % (09/08/18 4:33 PM) Total Protein 7.2 g/dL [6.4-8.4 g/dL] (09/08/18 4:33 PM) RBC [4.20-5.40 4.26 M/CMM M/CMM] (09/08/18 4:33 PM) RDW [11.5-14.5 %] 14.2 % (09/08/18 4:33 PM) Bili Total [0.2-1.3 0.4 mg/dL mg/dL] (09/08/18 4:33 PM) WBC [3.7-10.4 K/CMM] 7.3 K/CMM (09/08/18 4:33 PM) 1Result Comment: The eGFR is calculated [...] tiplied by the estimated BMI. 2Result Comment: Critical Result(s) called to arturo irby at 09/08/2018 17:10 by donna. Read back OK. Immunizations Given and Recorded [...] No entered on: 02/23/19 Assessment and Plan No data available for this section
--- OUTSIDE RECORDS SUMMARY | 2019-05-04 10:41 | XMS REPORT | Summary of Care ---
Author Author [facility] Organization [facility] Address Unknown Phone Unavailable Encounter CHUYITA Thornton(ARIC) [id number] Date(s): 03/19/18 - 03/26/18 [facility] [address] [place] [address]- [phone] Encounter Diagnosis Type 1 diabetes mellitus with other specified complication (Final) - 04/03/18 Cellulitis of right lower limb (Final) - Other acute osteomyelitis, right ankle and foot (Final) - Type 1 diabetes mellitus with foot ulcer (Final) - Non-pressure chronic ulcer of other part of right foot with unspecified severity (Final) - Essential (primary) hypertension (Final) - Atherosclerotic heart disease of [place] coronary artery without angina pectoris (Final) - Major depressive disorder, single episode, unspecified (Final) - Type 1 diabetes mellitus with diabetic polyneuropathy (Final) - Hyperlipidemia, unspecified (Final) - Alcoholic cirrhosis of liver without ascites (Final) - Irritable bowel syndrome without diarrhea (Final) - Cellulitis of right toe (Final) - Anxiety disorder, unspecified (Final) - Unspecified viral hepatitis C without hepatic coma (Final) - Bitten by dog, initial encounter (Final) - detention (current) use of insulin (Final) - Acquired absence of right hand (Final) - Personal history of pulmonary embolism (Final) - Personal history of other venous thrombosis and embolism (Final) - Personal history of nicotine dependence (Final) - Personal history of Methicillin resistant Staphylococcus aureus infection (Final) - Discharge Disposition: [facility]dc Facility Attending Physician: Sheron Irvin MD Admitting Physician: Sheron Irvin MD Vital Signs 1 2 3 Most recent to oldest [Reference Range]: 162.56 cm (03/19/18 10:14 PM) 162.56 cm (03/19/18 12:30 PM) Height 97.8 DegF (03/26/18 3:39 PM) 98.0 DegF (03/26/18 11:37 AM) 97.9 DegF (03/26/18 7:55 AM) Temperature Oral [96.4-99.1 DegF] 96/65 mmHg (03/26/18 3:39 PM) 98/64 mmHg (03/26/18 11:37 AM) 112/75 mmHg (03/26/18 7:55 AM) Blood Pressure [90-140/60-90 mmHg] 18 BRMIN (03/26/18 3:39 PM) 18 BRMIN (03/26/18 11:37 AM) 18 BRMIN (03/26/18 7:55 AM) Respiratory Rate [14-20 BRMIN] 91 bpm (03/26/18 3:39 PM) 105 bpm *HI* (03/26/18 11:37 AM) 84 bpm (03/26/18 7:55 AM) Peripheral Pulse Rate [60-100 bpm] 73.636 kg (03/19/18 10:14 PM) 77.273 kg (03/19/18 12:30 PM) Weight 27.87 m2 (03/19/18 10:14 PM) 29.24 m2 (03/19/18 12:30 PM) Body Mass Index Problem List Condition [...] Adverse Reactions, Alerts Substance Reaction Severity Status [place] Active Medications RN-Wait to give 06:00 vanc on 03/21 till trough drawn RN-Wait to give 06:00 vanc on 03/21 till trough drawn, Attn:RN, Drug form: MISC, Route: MISC, ONCE, 03/21/18 5:00:00 CDT, Stop date: 03/21/18 5:00:00 CDT Start Date: 03/21/18 Stop Date: 03/21/18 Status: Completed aspirin 81 mg tablet, chewable 81 mg, 1 tab, Route: PO, Drug form: [place], Daily, Dosing Weight 73.636, kg, St art date: 03/20/18 9:00:00 CDT, Duration: 30 day, Stop date: 04/18/18 9:00:00 CD T Notes: Take with food. Start Date: 03/20/18 Stop Date: 03/26/18 Status: Discontinued Dextrose 50% Syringe 12.5 gm, 25 mL, Route: IVP, Drug Form: INJ, Dosing Weight 73.636, kg, PRN, PRN B lood Glucose Results, Start date: 03/20/18 8:55:00 CDT, Duration: 30 day, Stop d ate: 04/19/18 8:54:00 CDT Start Date: 03/20/18 Stop Date: 03/26/18 Status: Discontinued Dextrose 50% Syringe 25 gm, 50 mL, Route: IVP, Drug Form: INJ, Dosing Weight 73.636, kg, PRN, PRN Blo od Glucose Results, Start date: 03/20/18 8:55:00 CDT, Duration: 30 day, Stop megan e: 04/19/18 8:54:00 CDT Start Date: 03/20/18 Stop Date: 03/26/18 Status: Discontinued Dilaudid 2 mg, 1 tab, Route: PO, Drug form: TAB, Q4H, Dosing Weight 73.636, kg, PRN Pain Score 7-10, Start date: 03/19/18 22:47:00 CDT, Duration: 30 day, Stop date: 04/01 04/18 22:46:00 CDT Notes: (Same as: Dilaudid) Start Date: 03/19/18 Stop Date: 03/26/18 Status: Discontinued furosemide 40 mg oral tablet 40 mg, 1 tab, Route: PO, Drug form: TAB, Daily, Dosing Weight 73.636, kg, Start date: 03/20/18 9:00:00 CDT, Duration: 30 day, Stop date: 04/18/18 9:00:00 CDT Notes: (Same as: Lasix) May cause GI upset. Give with food or milk. Start Date: 03/20/18 Stop Date: 03/26/18 Status: Discontinued gentamicin topical 0.1% cream 1 appl, Route: TOP, Q24H, Drug form: CRM, Start date: 03/20/18 18:00:00 CDT, Dur ation: 30 day, Stop date: 04/18/18 18:00:00 CDT Notes: (Same as: Garamycin) Start Date: 03/20/18 Stop Date: 03/26/18 Status: Discontinued gentamicin topical 0.1% cream 1 appl, TOP, Q24H, 0 Refill(s) Start Date: 03/25/18 Stop Date: 08/02/18 Status: Discontinued glucagon 1 mg, Route: IM, Drug form: PDR/INJ, PRN, Dosing Weight 73.636, kg, PRN Blood Gl ucose Results, Start date: 03/20/18 8:55:00 CDT, Duration: 30 day, Stop date: 8:54:00 CDT Start Date: 03/20/18 Stop Date: 03/26/18 Status: Discontinued hydromorphone 2 mg oral tablet 2 mg=1 tab, PO, Q4H, PRN Pain Score 7-10, 0 Refill(s) Start Date: 03/25/18 Stop Date: 08/12/18 Status: Discontinued insulin glargine 30 unit, 0.3 mL, Route: SUB-Q, Drug form: SOLN, BID, Start date: 03/20/18 9:08:0 0 CDT, Duration: 30 day, Stop date: 04/19/18 9:00:00 CDT Notes: (Same as: Lantus)Do not hold insulin without contacting prescriberWASTE: F/P - Black; E - Municipal Trash Bin "single patient use only" Start Date: 03/20/18 Stop Date: 03/26/18 Status: Discontinued insulin lispro 2 unit, 0.02 mL, Route: SUB-Q, Drug form: SOLN, Bedtime, Dosing Weight 73.636, k g, PRN Blood Glucose Results, Start date: 03/20/18 8:55:00 CDT, Duration: 30 day , Stop date: 04/19/18 8:54:00 CDT Notes: (Same as: Humalog ) Roll in palms of hands gently; Do not shake `vigorou sly. "Single Patient Use Only " WASTE: F/P - Black; E - Municipal Trash Bin St able for 28 days at room temperature.Expires in days from Da te Start Date: 03/20/18 Stop Date: 03/26/18 Status: Discontinued insulin lispro 1 unit, 0.01 mL, Route: SUB-Q, Drug form: SOLN, Bedtime, Dosing Weight 73.636, k g, PRN Blood Glucose Results, Start date: 03/20/18 8:55:00 CDT, Duration: 30 day , Stop date: 04/19/18 8:54:00 CDT Notes: (Same as: Humalog ) Roll in palms of hands gently; Do not shake `vigorou sly. "Single Patient Use Only " WASTE: F/P - Black; E - [facility] Trash [address] St able for 28 days at room temperature.Expires in days from Da te Start Date: 03/20/18 Stop Date: 03/26/18 Status: Discontinued insulin lispro 4 unit, 0.04 mL, Route: SUB-Q, Drug form: SOLN, Bedtime, Dosing Weight 73.636, k g, PRN Blood Glucose Results, Start date: 03/20/18 8:55:00 CDT, Duration: 30 day , Stop date: 04/19/18 8:54:00 CDT Notes: (Same as: Humalog ) Roll in palms of hands gently; Do not shake `vigorou sly. "Single Patient Use Only " WASTE: F/P - Black; E - [facility] Trash [address] St able for 28 days at room temperature.Expires in days from Da te Start Date: 03/20/18 Stop Date: 03/26/18 Status: Discontinued insulin lispro 3 unit, 0.03 mL, Route: SUB-Q, Drug form: SOLN, Bedtime, Dosing Weight 73.636, k g, PRN Blood Glucose Results, Start date: 03/20/18 8:55:00 CDT, Duration: 30 day , Stop date: 04/19/18 8:54:00 CDT Notes: (Same as: Humalog ) Roll in palms of hands gently; Do not shake `vigorou sly. "Single Patient Use Only " WASTE: F/P - Black; E - [facility] Trash [address] St able for 28 days at room temperature.Expires in days from Da te Start Date: 03/20/18 Stop Date: 03/26/18 Status: Discontinued insulin lispro 12 unit, 0.12 mL, Route: SUB-Q, Drug form: SOLN, TID-Before Meals, Dosing Weight 73.636, kg, PRN Blood Glucose Results, Start date: 03/20/18 8:55:00 CDT, Durati on: 30 day, Stop date: 04/19/18 8:54:00 CDT Notes: (Same as: Humalog ) Roll in palms of hands gently; Do not shake `vigorou sly. "Single Patient Use Only " WASTE: F/P - Black; E - [facility] [address] St able for 28 days at room temperature.Expires in days from Da te Start Date: 03/20/18 Stop Date: 03/26/18 Status: Discontinued insulin lispro 9 unit, 0.09 mL, Route: SUB-Q, Drug form: SOLN, TID-Before Meals, Dosing Weight 73.636, kg, PRN Blood Glucose Results, Start date: 03/20/18 8:55:00 CDT, Duratio n: 30 day, Stop date: 04/19/18 8:54:00 CDT Notes: (Same as: Humalog ) Roll in palms of hands gently; Do not shake `vigorou sly. "Single Patient Use Only " WASTE: F/P - Black; E - [facility] [address] St able for 28 days at room temperature.Expires in days from Da te Start Date: 03/20/18 Stop Date: 03/26/18 Status: Discontinued insulin lispro 15 unit, 0.15 mL, Route: SUB-Q, Drug form: SOLN, TID-Before Meals, Dosing Weight 73.636, kg, PRN Blood Glucose Results, Start date: 03/20/18 8:55:00 CDT, Durati on: 30 day, Stop date: 04/19/18 8:54:00 CDT Notes: (Same as: Humalog ) Roll in palms of hands gently; Do not shake `vigorou sly. "Single Patient Use Only " WASTE: F/P - Black; E - [facility] [address] St able for 28 days at room temperature.Expires in days from Da te Start Date: 03/20/18 Stop Date: 03/26/18 Status: Discontinued insulin lispro 3 unit, 0.03 mL, Route: SUB-Q, Drug form: SOLN, TID-Before Meals, Dosing Weight 73.636, kg, PRN Blood Glucose Results, Start date: 03/20/18 8:55:00 CDT, Duratio n: 30 day, Stop date: 04/19/18 8:54:00 CDT Notes: (Same as: Humalog ) Roll in palms of hands gently; Do not shake `vigorou sly. "Single Patient Use Only " WASTE: F/P - Black; E - [facility] [address] St able for 28 days at room temperature.Expires in days from Da te Start Date: 03/20/18 Stop Date: 03/26/18 Status: Discontinued insulin lispro 6 unit, 0.06 mL, Route: SUB-Q, Drug form: SOLN, TID-Before Meals, Dosing Weight 73.636, kg, PRN Blood Glucose Results, Start date: 03/20/18 8:55:00 CDT, Margarita n: 30 day, Stop date: 04/19/18 8:54:00 CDT Notes: (Same as: Humalog ) Roll in palms of hands gently; Do not shake `vigorou sly. "Single Patient Use Only " WASTE: F/P - Black; E - [facility] [address] St able for 28 days at room temperature.Expires in days from Da te Start Date: 03/20/18 Stop Date: 03/26/18 Status: Discontinued Levemir 30 units, SUB-Q, BID, 0 Refill(s) Start Date: 03/19/18 Status: Ordered Levemir Route: SUB-Q, BID, Dosing Weight 73.636, kg, Start date: 03/20/18 9:00:00 CDT, D uration: 30 day, Stop date: 04/18/18 17:00:00 CDT Start Date: 03/20/18 Stop Date: 03/20/18 Status: Deleted lisinopril 10 mg, 2 tab, Route: PO, Drug form: TAB, Daily, Dosing Weight 73.636, kg, Start date: 03/20/18 9:00:00 CDT, Duration: 30 day, Stop date: 04/18/18 9:00:00 CDT Notes: (Same as: Prinivil, Zestril) Start Date: 03/20/18 Stop Date: 03/26/18 Status: Discontinued lisinopril 10 mg oral tablet 10 mg=1 tab, PO, Daily, # 30 tab, 0 Refill(s) Start Date: 03/19/18 Stop Date: 08/12/18 Status: Discontinued morphine Sulfate 4 mg, 1 mL, Route: IVP, Drug form: SOLN, ONCE, Dosing Weight 77.273, kg, Priorit y: STAT, Start date: 03/19/18 16:42:00 CDT, Stop date: 03/19/18 16:42:00 CDT Notes: (Same as:MORPhine Sulfate) Start Date: 03/19/18 Stop Date: 03/19/18 Status: Completed [place] 5/325 oral tablet 1 tab, Route: PO, Drug Form: TAB, Dosing Weight 73.636, kg, Q4H, PRN Pain Score 1-3, Start date: 03/19/18 22:47:00 CDT, Duration: 30 day, Stop date: 04/18/18 22 :46:00 CDT Notes: (Same as: [place] 325/5) Do not exceed 4gm/day of acetaminophen. Start Date: 03/19/18 Stop Date: 03/26/18 Status: Discontinued pneumococcal 23-valent vaccine 0.5 mL, Route: IM, ONCALL, Start date: 03/19/18 22:21:08 CDT, Stop date: 8 22:16:08 CDT Start Date: 03/19/18 Stop Date: 03/19/18 Status: Discontinued ProAir HFA 90 mcg/inh inhalation aerosol with adapter 180 microgram, Route: INHALER, Drug Form: AERO/A, Dosing Weight 73.636, kg, Q6H, PRN Wheezing, Start date: 03/20/18 8:54:00 CDT, Duration: 30 day, Stop date: 8:53:00 CDT Notes: Albuterol 90 microgram/inh 8gm HFAWASTE: Aerosol - Return to Pharmacy Sa ar as: [facility] Start Date: 03/20/18 Stop Date: 03/26/18 Status: Discontinued QUEtiapine 25 mg, 1 tab, Route: PO, Drug form: TAB, BID, Dosing Weight 73.636, kg, Start da te: 03/20/18 9:00:00 CDT, Duration: 30 day, Stop date: 04/18/18 17:00:00 CDT Notes: (Same as: SEROquel) Start Date: 03/20/18 Stop Date: 03/26/18 Status: Discontinued spironolactone 100 mg, 2 tab, Route: PO, Drug form: TAB, Daily, Dosing Weight 73.636, kg, Start date: 03/20/18 9:00:00 CDT, Duration: 30 day, Stop date: 04/18/18 9:00:00 CDT Notes: (Same As: Aldactone) Start Date: 03/20/18 Stop Date: 03/26/18 Status: Discontinued vancomycin + Dextrose 5% in Water IV 250 mL 1,000 mg, Route: IVPB, Drug form: INJ, ONCE, Dosing Weight 77.273, kg, Priority: STAT, Start date: 03/19/18 17:07:00 CDT, Stop date: 03/19/18 17:07:00 CDT, ABX Indication: Skin/Soft Tissue Infection Notes: TIME CRITICAL MEDICATION(Same As: Vancocin)Infusion rate< 1000 mg: infuse over 1 [id number] - 1500 mg: infuse over 1.5 [id number] - 2000 mg: infuse over 2 hours> 2001 mg: infuse over 2.5 hoursFor adult patients only: Round to nearest 250 mg per Medical Staff approval MEDICATION WASTE Product Size: 1000 mgProduct Wasted: ___ mg Start Date: 03/19/18 Stop Date: 03/21/18 Status: Completed vancomycin 1 g intravenous injection 750 mg, IV, Q8H, # 42 bag, 0 Refill(s), Pharmacy: [facility] [id number] Start Date: 03/25/18 Stop Date: 03/27/18 Status: Completed vancomycin 750 mg + Dextrose 5% in Water IV 250 mL 750 mg, Route: IV, ABXQ8H, Dosing Weight 77.273, kg, Start date: 03/20/18 4:00:0 0 CDT, Duration: 30 day, Stop date: 04/18/18 22:00:00 CDT, ABX Indication: Bone/ Joint Infection Notes: TIME CRITICAL MEDICATION(Same As: Vancocin)Infusion rate< 1000 mg: infuse over 1 [id number] - 1500 mg: infuse over 1.5 [id number] - 2000 mg: infuse over 2 hours> 2001 mg: infuse over 2.5 hoursFor adult patients only: Round to nearest 250 mg per Medical Staff approval MEDICATION WASTE Product Size: 1000 mgProduct Wasted: ___ mg Start Date: 03/20/18 Stop Date: 03/26/18 Status: Discontinued venlafaxine 75 mg, 2 cap, Route: PO, Drug form: ERCAP, Daily, Dosing Weight 73.636, kg, Star t date: 03/20/18 9:00:00 CDT, Duration: 30 day, Stop date: 04/18/18 9:00:00 CDT Notes: Do not open, crush, or chew.(Same As: Effexor XR) Start Date: 03/20/18 Stop Date: 03/26/18 Status: Discontinued Zofran 4 mg, 2 mL, Route: IVP, Drug form: INJ, Q6H, Dosing Weight 73.636, kg, PRN Nause a, Start date: 03/20/18 10:20:00 CDT, Duration: 30 day, Stop date: 04/19/18 10:1 9:00 CDT Notes: (Same as: Zofran) MEDICATION WASTE Product Size: 4 mgProduct Was mirna: ___ mg Start Date: 03/20/18 Stop Date: 03/26/18 Status: Discontinued Zosyn 3.375 gm, Route: IVPB, Drug form: PDR/INJ, ABXQ8H, Dosing Weight 77.273, kg, CrC l >=20 ml/min infuse over 4 hours, Start date: 03/19/18 18:00:00 CDT, Duration: 14 day, Stop date: 04/02/18 10:00:00 CDT, ABX Indication: Bone/Joint Infection Start Date: 03/19/18 Stop Date: 03/19/18 Status: Discontinued Zosyn + Sodium Chloride 0.9% IV 100 mL 3.375 gm, Route: IVPB, ONCE, Dosing Weight 77.273, kg, Priority: STAT, Start megan e: 03/19/18 17:06:00 CDT, Stop date: 03/19/18 17:06:00 CDT, ABX Indication: Skin /Soft Tissue Infection Notes: (Same as: Zosyn)Dosing based on Piperacillin component MEDICATION [place] LUCIUS Product Size: 3375 mgProduct Wasted: ___ mg Start Date: 03/19/18 Stop Date: 03/19/18 Status: Discontinued Zosyn + Sodium Chloride 0.9% IV 100 mL 3.375 gm, Route: IVPB, ABXQ8H, Dosing Weight 77.273, kg, CrCl >=20 ml/min infuse over 4 hours, Start date: 03/19/18 18:00:00 CDT, Duration: 14 day, Stop date: 04/02/18 10:00:00 CDT, ABX Indication: Bone/Joint Infection Notes: (Same as: Zosyn)Dosing based on Piperacillin component MEDICATION [place] Product Size: 3375 mgProduct Wasted: ___ mg Start Date: 03/19/18 Stop Date: 03/26/18 Status: Discontinued Zosyn 3.375 g intravenous injection 3.375 gm, IV, Q8H, X 14 day, # 42 bag, 0 Refill(s), Pharmacy: [facility] [place] [id number] Start Date: 03/25/18 Stop Date: 03/27/18 Status: Completed Results ELECTROLYTES 1 2 3 Most recent to oldest [Reference Range]: 143 mEq/L (03/25/18 6:25 AM) 141 mEq/L (03/24/18 5:23 AM) 139 mEq/L (03/23/18 8:52 AM) Sodium Lvl [135-145 mEq/L] 4.5 mEq/L (03/25/18 6:25 AM) 4.5 mEq/L (03/24/18 5:23 AM) 4.9 mEq/L (03/23/18 8:52 AM) Potassium Lvl [3.5-5.1 mEq/L] 108 mEq/L (03/25/18 6:25 AM) 105 mEq/L (03/24/18 5:23 AM) 103 mEq/L (03/23/18 8:52 AM) Chloride Lvl [95-109 mEq/L] 25 mEq/L (03/25/18 6:25 AM) 29 mEq/L (03/24/18 5:23 AM) 28 mEq/L (03/23/18 8:52 AM) CO2 [24-32 mEq/L] 14.5 mEq/L (03/25/18 6:25 AM) 11.5 mEq/L (03/24/18 5:23 AM) 12.9 mEq/L (03/23/18 8:52 AM) AGAP [10.0-20.0 mEq/L] CHEM PANEL 1 2 3 Most recent to oldest [Reference Range]: 1.10 mg/dL (03/25/18 6:25 AM) 1.01 mg/dL (03/24/18 5:23 AM) 1.17 mg/dL (03/23/18 8:52 AM) Creatinine Lvl [0.50-1.40 mg/dL] 59 mL/min/1.73m2 1 *NA* (03/25/18 6:25 AM) 65 mL/min/1.73m2 2 *NA* (03/24/18 5:23 AM) 54 mL/min/1.73m2 3 *NA* (03/23/18 8:52 AM) eGFR 27 mg/dL *HI* (03/25/18 6:25 AM) 27 mg/dL *HI* (03/24/18 5:23 AM) 22 mg/dL (03/23/18 8:52 AM) BUN [7-22 mg/dL] 18 (03/19/18 12:52 PM) B/C Ratio [6-25] 161 mg/dL *HI* (03/25/18 6:25 AM) 88 mg/dL (03/24/18 5:23 AM) 133 mg/dL *HI* (03/23/18 8:52 AM) Glucose Lvl [70-99 mg/dL] 7.5 g/dL (03/19/18 12:52 PM) Total Protein [6.4-8.4 g/dL] 3.5 g/dL (03/19/18 12:52 PM) Albumin Lvl [3.5-5.0 g/dL] 4.0 g/dL (03/19/18 12:52 PM) Globulin [2.7-4.2 g/dL] 0.9 (03/19/18 12:52 PM) A/G Ratio [0.7-1.6] 8.5 mg/dL (03/25/18 6:25 AM) 8.7 mg/dL (03/24/18 5:23 AM) 9.3 mg/dL (03/23/18 8:52 AM) Calcium Lvl [8.5-10.5 mg/dL] 2.1 mg/dL (03/25/18 6:25 AM) 2.1 mg/dL (03/24/18 5:23 AM) 2.2 mg/dL (03/23/18 8:52 AM) Magnesium Lvl [1.8-2.4 mg/dL] 36 unit/L (03/19/18 12:52 PM) ALT [0-65 unit/L] 36 unit/L (03/19/18 12:52 PM) AST [0-37 unit/L] 147 unit/L *HI* (03/19/18 12:52 PM) Alk Phos [39-136 unit/L] 0.4 mg/dL (03/19/18 12:52 PM) Bili Total [0.2-1.3 mg/dL] 1Result Comment: The eGFR is calculated using [...] be mul tiplied by the estimated BMI. TOXICOLOGY 1 2 3 Most recent to oldest [Reference Range]: 0600 *NA* (03/21/18 5:40 AM) [facility] *NA* (03/21/18 5:40 AM) Vanco Tr HEMATOLOGY 1 2 3 Most recent to oldest [Reference Range]: 6.5 K/CMM (03/25/18 6:25 AM) 7.1 K/CMM (03/24/18 5:23 AM) 7.1 K/CMM (03/23/18 8:52 AM) WBC [3.7-10.4 K/CMM] 4.15 M/CMM *LOW* (03/25/18 6:25 AM) 4.25 M/CMM (03/24/18 5:23 AM) 4.53 M/CMM (03/23/18 8:52 AM) RBC [4.20-5.40 M/CMM] 11.3 g/dL *LOW* (03/25/18 6:25 AM) 11.8 g/dL *LOW* (03/24/18 5:23 AM) 12.6 g/dL (03/23/18 8:52 AM) Hgb [12.0-16.0 g/dL] 34.0 % *LOW* (03/25/18 6:25 AM) 35.0 % *LOW* (03/24/18 5:23 AM) 37.4 % (03/23/18 8:52 AM) Hct [36.0-48.0 %] 81.9 fL (03/25/18 6:25 AM) 82.3 fL (03/24/18 5:23 AM) 82.6 fL (03/23/18 8:52 AM) MCV [80.0-98.0 fL] 27.2 pg (03/25/18 6:25 AM) 27.9 pg (03/24/18 5:23 AM) 27.8 pg (03/23/18 8:52 AM) MCH [27.0-31.0 pg] 33.1 g/dL (03/25/18 6:25 AM) 33.9 g/dL (03/24/18 5:23 AM) 33.7 g/dL (03/23/18 8:52 AM) MCHC [32.0-36.0 g/dL] 14.3 % (03/25/18 6:25 AM) 14.2 % (03/24/18 5:23 AM) 13.9 % (03/23/18 8:52 AM) RDW [11.5-14.5 %] 7.2 fL *LOW* (03/25/18 6:25 AM) 7.6 fL (03/24/18 5:23 AM) 7.5 fL (03/23/18 8:52 AM) MPV [7.4-10.4 fL] 179 K/CMM (03/25/18 6:25 AM) 198 K/CMM (03/24/18 5:23 AM) 218 K/CMM (03/23/18 8:52 AM) Platelet [133-450 K/CMM] 66.1 % (03/21/18 5:40 AM) 60.8 % (03/19/18 12:52 PM) Segs [45.0-75.0 %] 26.6 % (03/21/18 5:40 AM) 32.3 % (03/19/18 12:52 PM) Lymphocytes [20.0-40.0 %] 4.3 % (03/21/18 5:40 AM) 4.3 % (03/19/18 12:52 PM) Monocytes [2.0-12.0 %] 2.5 % (03/21/18 5:40 AM) 2.0 % (03/19/18 12:52 PM) Eosinophils [0.0-4.0 %] 0.5 % (03/21/18 5:40 AM) 0.6 % (03/19/18 12:52 PM) Basophils [0.0-1.0 %] 3.4 K/CMM (03/21/18 5:40 AM) 4.3 K/CMM (03/19/18 12:52 PM) Neutrophils # [1.5-8.1 K/CMM] 1.4 K/CMM (03/21/18 5:40 AM) 2.3 K/CMM (03/19/18 12:52 PM) Lymphocytes # [1.0-5.5 K/CMM] 0.2 K/CMM (03/21/18 5:40 AM) 0.3 K/CMM (03/19/18 12:52 PM) Monocytes # [0.0-0.8 K/CMM] 0.1 K/CMM (03/21/18 5:40 AM) 0.1 K/CMM (03/19/18 12:52 PM) Eosinophils # [0.0-0.5 K/CMM] 55 mm/hr *HI* (03/20/18 5:22 PM) Sed Rate [0-20 mm/hr] Immunizations Given and Recorded Vaccine Date Status [...] No entered on: 09/08/18 Assessment and Plan Extracted from: Title: Clinical Document Author: Kevon Vaz Date: 03/26/18 DPM Podiatric Surgery Progress Note Kevon Vaz DPM [facility] SUBJECTIVE: Pt seen at bedside; c/i increased [...] in Water IV (Dextrose 50% Syringe), acetaminophen-hydrocodone ([place] 5/325 oral tablet), albuterol (ProAir HFA 90 mcg/inh inhalation aerosol with adapter), glucagon, hydromorphone (Dilaudid), insulin lispro, insulin lispro, insulin lispro, insulin lispro, insulin lispro, insulin lispro, insulin lispro, insulin lispro, insulin lispro, ondansetron (Zofran) One Time Meds: None Continuous Infusions: None ALLERGIES: Allergies (1) ActiveReaction NKDANone Documented OBJECTIVE: AAO x 3 in NAD; Dorsalis Pedis/Posterior Tibial pulses palpable on the right foot; skin temperature is warm to touch; ulcer along the distal aspect of the right fifth toe with erythema and edema; no purulent discharge; light touch pinprick sensation is reduced; no calf tenderness Vitals and Temp: VitalsTmp(F)[id number] 03/26 07:[id number]--- 03/26 03:[id number]--- 03/26 00:[id number]/7116------ 03/25 20:[id number]--- 03/25 15:[id number]--- 24 Hr Tmax: 98.6F (37.00c) at 03/26 03:22Vital Signs are the last 5 in the past 48 hours. Labs (Last four charted values) WBC 6.5(MAR 25)7.1(MAR 24)7.1(MAR 23)5.2(MAR 21) Hgb L 11.3(MAR 25)L 11.8(MAR 24)12.6(MAR 23)L 11.6(MAR 21) Hct L 34.0(MAR 25)L 35.0(MAR 24)37.4(MAR 23)L 34.7(MAR 21) Plt 179(MAR 25)198(MAR 24)218(MAR 23)197(MAR 21) Na 143(MAR 25)141(MAR 24)139(MAR 23)140(MAR 21) K 4.5(MAR 25)4.5(MAR 24)4.9(MAR 23)4.7(MAR 21) CO2 25(MAR 25)29(MAR 24)28(MAR 23)32(MAR 21) Cl 108(MAR 25)105(MAR 24)103(MAR 23)102(MAR 21) Cr 1.10(MAR 25)1.01(MAR 24)1.17(MAR 23)1.02(MAR 21) BUN H 27(MAR 25)H 27(MAR 24)22(MAR 23)H 24(MAR 21) Glucose Random H 161(MAR 25)88(MAR 24)H 133(MAR 23)H 177(MAR 21) Mg 2.1(MAR 25)2.1(MAR 24)2.2(MAR 23) Ca 8.5(MAR 25)8.7(MAR 24)9.3(MAR 23)8.9(MAR 21) IMAGING: MRI of the right foot [...]
--- OUTSIDE RECORDS SUMMARY | 2019-05-04 10:41 | XMS REPORT | Summary of Care ---
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, or unspecified chronic kidney disease (Final) - Acute kidney failure, unspecified (Final) - Hypovolemia (Final) - Dehydration (Final) - Chronic kidney disease, stage 3 (moderate) (Final) - Type 2 diabetes mellitus with diabetic chronic kidney disease (Final) - Unspecified viral hepatitis C without hepatic coma (Final) - Alcoholic cirrhosis of liver without ascites (Final) - Hyperkalemia (Final) - 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 (Final) - Hyperlipidemia, unspecified (Final) - Type 2 diabetes mellitus with diabetic neuropathy, unspecified (Final) - Acquired absence of both cervix and uterus (Final) - 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 (Final) - 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 (Final) - Allergy status to narcotic agent status (Final) - Discharge Disposition: Home or Self Care Attending Physician: Dustin Waite MD Admitting Physician: Dustin Waite MD Vital Signs 1 2 3 Most recent to oldest [Reference Range]: 162.56 cm (07/30/18 9:50 PM) 162.56 cm (07/30/18 2:20 PM) Height 80.003 kg (08/02/18 5:19 AM) Current Weight 97.5 DegF (08/02/18 3:05 PM) 98.5 DegF (08/02/18 2:15 PM) 98.5 DegF (08/02/18 11:47 AM) Temperature Oral [96.4-99.1 DegF] 128/84 mmHg (08/02/18 3:05 PM) 136/98 mmHg (08/02/18 2:15 PM) 110/75 mmHg (08/02/18 11:47 AM) Blood Pressure [90-140/60-90 mmHg] 18 BRMIN (08/02/18 3:05 PM) 18 BRMIN (08/02/18 2:15 PM) 18 BRMIN (08/02/18 11:47 AM) Respiratory Rate [14-20 BRMIN] 88 bpm (08/02/18 3:05 PM) 88 bpm (08/02/18 2:15 PM) 87 bpm (08/02/18 11:47 AM) Peripheral Pulse Rate [60-100 bpm] 76.008 kg (07/30/18 9:50 PM) 75 kg (07/30/18 2:20 PM) Weight 28.76 m2 (07/30/18 9:50 PM) 28.38 m2 (07/30/18 2:20 PM) Body Mass Index Problem List Condition [...] Adverse Reactions, Alerts Substance Reaction Severity Status [place] Active Medications acetaminophen 500 mg, 1 tab, Route: PO, Drug form: TAB, BID, Dosing Weight 75, kg, PRN Pain 1- 3/Temp > 100.4 F, Start date: 07/30/18 19:04:00 IDENTIFICATION PRINTING MACHINE SETTER, Duration: 30 day, Stop date: 08/29/18 19:03:00 IDENTIFICATION PRINTING MACHINE SETTER Notes: Max acetaminophen 4000 mg/day (4 gm/day). (Same as: Tylenol Extra Streng th) Start Date: 07/30/18 Stop Date: 08/02/18 Status: Discontinued Benadryl 25 mg, 1 tab, Route: PO, Drug form: TAB, ONCE, Dosing Weight 75, kg, Priority: S TAT, Start date: 07/30/18 14:50:00 IDENTIFICATION PRINTING MACHINE SETTER, Stop date: 07/30/18 14:50:00 IDENTIFICATION PRINTING MACHINE SETTER Start Date: 07/30/18 Stop Date: 07/30/18 Status: Completed cefTRIAXone 2 gm, Route: IVPB, Drug form: PDR/INJ, [id number], Dosing Weight 75, kg, Start date : 07/30/18 21:00:00 IDENTIFICATION PRINTING MACHINE SETTER, Duration: 10 day, Stop date: 08/08/18 21:00:00 IDENTIFICATION PRINTING MACHINE SETTER, ABX Indication: Infectious Diarrhea Start Date: 07/30/18 Stop Date: 07/30/18 Status: Canceled Cipro 500 mg, 1 tab, Route: PO, Drug form: TAB, [id number], Dosing Weight 76.008, kg, Sta rt date: 08/02/18 11:00:00 IDENTIFICATION PRINTING MACHINE SETTER, Duration: 10 day, Stop date: 08/11/18 23:00:[address], ABX Indication: Intra-abdominal Infection Notes: May interfere w/enteral feedings - Take 1 hr before or 2 hrs after anta cids, dairy pdt & minerals. On empty stomach. Start Date: 08/02/18 Stop Date: 08/02/18 Status: Discontinued ciprofloxacin 500 mg oral tablet 500 mg=1 tab, PO, [id number], X 12 day, # 24 tab, 0 Refill(s), [facility] [id number] Start Date: 08/02/18 Stop Date: 08/14/18 Status: Completed cloNIDine 0.1 mg oral tablet 0.1 mg, 1 tab, Route: PO, Drug form: TAB, Q6H, Dosing Weight 75, kg, PRN Hyperte nsion, Start date: 07/30/18 19:04:00 IDENTIFICATION PRINTING MACHINE SETTER, Duration: 30 day, Stop date: 08/29/18 19:03:00 IDENTIFICATION PRINTING MACHINE SETTER Notes: (Same As: Catapres) Start Date: 07/30/18 Stop Date: 08/02/18 Status: Discontinued dextromethorphan-guaiFENesin 5 mg-100 mg/5 mL oral liquid 5 mL, Route: PO, Drug Form: LIQ, Dosing Weight 75, kg, QID, PRN Cough, Start megan e: 07/30/18 19:04:00 IDENTIFICATION PRINTING MACHINE SETTER, Duration: 30 day, Stop date: 08/29/18 19:03:00 IDENTIFICATION PRINTING MACHINE SETTER Notes: (dextromethorphan-guaifenesin 10-100/5 ml LIQ) (Same as: Robitussin-DM) Start Date: 07/30/18 Stop Date: 08/02/18 Status: Discontinued Dextrose 50% Syringe 25 gm, 50 mL, Route: IVP, Drug Form: INJ, Dosing Weight 75, kg, PRN, PRN Blood G lucose Results, Start date: 07/30/18 20:19:00 IDENTIFICATION PRINTING MACHINE SETTER, Duration: 30 day, Stop date: 08/29/18 20:18:00 IDENTIFICATION PRINTING MACHINE SETTER Start Date: 07/30/18 Stop Date: 08/02/18 Status: Discontinued Dextrose 50% Syringe 12.5 gm, 25 mL, Route: IVP, Drug Form: INJ, Dosing Weight 75, kg, PRN, PRN Blood Glucose Results, Start date: 07/30/18 20:19:00 IDENTIFICATION PRINTING MACHINE SETTER, Duration: 30 day, Stop date: 08/29/18 20:18:00 IDENTIFICATION PRINTING MACHINE SETTER Start Date: 07/30/18 Stop Date: 08/02/18 Status: Discontinued Dextrose 50% Syringe 25 gm, 50 mL, Route: IVP, Drug Form: INJ, Dosing Weight 75, kg, PRN, PRN Blood G lucose Results, Start date: 07/30/18 19:04:00 IDENTIFICATION PRINTING MACHINE SETTER, Duration: 30 day, Stop date: 08/29/18 19:03:00 IDENTIFICATION PRINTING MACHINE SETTER Start Date: 07/30/18 Stop Date: 07/30/18 Status: Discontinued Dextrose 50% Syringe 12.5 gm, 25 mL, Route: IVP, Drug Form: INJ, Dosing Weight 75, kg, PRN, PRN Blood Glucose Results, Start date: 07/30/18 19:04:00 IDENTIFICATION PRINTING MACHINE SETTER, Duration: 30 day, Stop date: 08/29/18 19:03:00 IDENTIFICATION PRINTING MACHINE SETTER Start Date: 07/30/18 Stop Date: 07/30/18 Status: Discontinued Flagyl 500 mg, 1 tab, Route: PO, Drug form: TAB, ABXQ8H, Dosing Weight 76.008, kg, Star t date: 08/02/18 11:00:00 IDENTIFICATION PRINTING MACHINE SETTER, Duration: 10 day, Stop date: 08/12/18 3:00:00 IDENTIFICATION PRINTING MACHINE SETTER , ABX Indication: Intra-abdominal Infection Notes: (Same as: Flagyl) Take with food/ avoid alcohol Start Date: 08/02/18 Stop Date: 08/02/18 Status: Discontinued Flagyl 500 mg, Route: IVPB, ABXQ8H, Dosing Weight 75, kg, Start date: 07/30/18 21:00:00 IDENTIFICATION PRINTING MACHINE SETTER, Duration: 10 day, Stop date: 08/09/18 13:00:00 IDENTIFICATION PRINTING MACHINE SETTER, ABX Indication: Infect ious Diarrhea Start Date: 07/30/18 Stop Date: 07/30/18 Status: Canceled glucagon 1 mg, Route: IM, Drug form: PDR/INJ, PRN, Dosing Weight 75, kg, PRN Blood Glucos e Results, Start date: 07/30/18 20:19:00 IDENTIFICATION PRINTING MACHINE SETTER, Duration: 30 day, Stop date: 08/29 20:18:00 IDENTIFICATION PRINTING MACHINE SETTER Start Date: 07/30/18 Stop Date: 08/02/18 Status: Discontinued glucagon 1 mg, Route: IM, Drug form: PDR/INJ, PRN, Dosing Weight 75, kg, PRN Blood Glucos e Results, Start date: 07/30/18 19:04:00 IDENTIFICATION PRINTING MACHINE SETTER, Duration: 30 day, Stop date: 08/29 19:03:00 IDENTIFICATION PRINTING MACHINE SETTER Start Date: 07/30/18 Stop Date: 07/30/18 Status: Discontinued hydrALAZINE 10 mg, 0.5 mL, Route: IVP, Drug form: INJ, Q4H, Dosing Weight 75, kg, PRN Hypert ension, Start date: 07/30/18 19:04:00 IDENTIFICATION PRINTING MACHINE SETTER, Duration: 30 day, Stop date: 08/29/18 19:03:00 IDENTIFICATION PRINTING MACHINE SETTER Notes: (Same as: Apresoline)Push over 5 minutes Start Date: 07/30/18 Stop Date: 08/02/18 Status: Discontinued Imodium A-D 2 mg, 1 cap, Route: PO, Drug form: CAP, Q4H, Dosing Weight 76.008, kg, Start megan e: 08/02/18 12:00:00 IDENTIFICATION PRINTING MACHINE SETTER, Duration: 30 day, Stop date: 09/01/18 8:00:00 IDENTIFICATION PRINTING MACHINE SETTER Notes: (Same as: Imodium) MAX adult dose is 8 caps/day Start Date: 08/02/18 Stop Date: 08/02/18 Status: Discontinued insulin lispro 2 unit, 0.02 mL, Route: SUB-Q, Drug form: SOLN, Bedtime, Dosing Weight 75, kg, P RN Blood Glucose Results, Start date: 07/30/18 20:19:00 IDENTIFICATION PRINTING MACHINE SETTER, Duration: 30 day, S top date: 08/29/18 20:18:00 IDENTIFICATION PRINTING MACHINE SETTER Notes: (Same as: Humalog ) Roll in palms of hands gently; Do not shake `vigorou sly. "Single Patient Use Only " WASTE: F/P - Black; E - [facility] [address] able for 28 days at room temperature.Expires in days from Da te Start Date: 07/30/18 Stop Date: 08/02/18 Status: Discontinued insulin lispro 3 unit, 0.03 mL, Route: SUB-Q, Drug form: SOLN, Bedtime, Dosing Weight 75, kg, P RN Blood Glucose Results, Start date: 07/30/18 20:19:00 IDENTIFICATION PRINTING MACHINE SETTER, Duration: 30 day, S top date: 08/29/18 20:18:00 IDENTIFICATION PRINTING MACHINE SETTER Notes: (Same as: Humalog ) Roll in palms of hands gently; Do not shake `vigorou sly. "Single Patient Use Only " WASTE: F/P - Black; E - [facility] [address] [address] able for 28 days at room temperature.Expires in days from Da te Start Date: 07/30/18 Stop Date: 08/02/18 Status: Discontinued insulin lispro 1 unit, 0.01 mL, Route: SUB-Q, Drug form: SOLN, Bedtime, Dosing Weight 75, kg, P RN Blood Glucose Results, Start date: 07/30/18 20:19:00 IDENTIFICATION PRINTING MACHINE SETTER, Duration: 30 day, S top date: 08/29/18 20:18:00 IDENTIFICATION PRINTING MACHINE SETTER Notes: (Same as: Humalog ) Roll in palms of hands gently; Do not shake `vigorou sly. "Single Patient Use Only " WASTE: F/P - Black; E - [facility] [address] able for 28 days at room temperature.Expires in days from Da te Start Date: 07/30/18 Stop Date: 08/02/18 Status: Discontinued insulin lispro 4 unit, 0.04 mL, Route: SUB-Q, Drug form: SOLN, Bedtime, Dosing Weight 75, kg, P RN Blood Glucose Results, Start date: 07/30/18 20:19:00 IDENTIFICATION PRINTING MACHINE SETTER, Duration: 30 day, S top date: 08/29/18 20:18:00 IDENTIFICATION PRINTING MACHINE SETTER Notes: (Same as: Humalog ) Roll in palms of hands gently; Do not shake `vigorou sly. "Single Patient Use Only " WASTE: F/P - Black; E - [facility] [address] able for 28 days at room temperature.Expires in days from Da te Start Date: 07/30/18 Stop Date: 08/02/18 Status: Discontinued insulin lispro 10 unit, 0.1 mL, Route: SUB-Q, Drug form: SOLN, TID-Before Meals, Dosing Weight 75, kg, PRN Blood Glucose Results, Start date: 07/30/18 20:19:00 IDENTIFICATION PRINTING MACHINE SETTER, Duration: 30 day, Stop date: 08/29/18 20:18:00 IDENTIFICATION PRINTING MACHINE SETTER Notes: (Same as: Humalog ) Roll in palms of hands gently; Do not shake `vigorou sly. "Single Patient Use Only " WASTE: F/P - Black; E - [facility] [address] able for 28 days at room temperature.Expires in days from Da te Start Date: 07/30/18 Stop Date: 08/02/18 Status: Discontinued insulin lispro 6 unit, 0.06 mL, Route: SUB-Q, Drug form: SOLN, TID-Before Meals, Dosing Weight 75, kg, PRN Blood Glucose Results, Start date: 07/30/18 20:19:00 IDENTIFICATION PRINTING MACHINE SETTER, Duration: 30 day, Stop date: 08/29/18 20:18:00 IDENTIFICATION PRINTING MACHINE SETTER Notes: (Same as: Humalog ) Roll in palms of hands gently; Do not shake `vigorou sly. "Single Patient Use Only " WASTE: F/P - Black; E - [facility] [address] able for 28 days at room temperature.Expires in days from Da te Start Date: 07/30/18 Stop Date: 08/02/18 Status: Discontinued insulin lispro 8 unit, 0.08 mL, Route: SUB-Q, Drug form: SOLN, TID-Before Meals, Dosing Weight 75, kg, PRN Blood Glucose Results, Start date: 07/30/18 20:19:00 IDENTIFICATION PRINTING MACHINE SETTER, Duration: 30 day, Stop date: 08/29/18 20:18:00 IDENTIFICATION PRINTING MACHINE SETTER Notes: (Same as: Humalog ) Roll in palms of hands gently; Do not shake `vigorou sly. "Single Patient Use Only " WASTE: F/P - Black; E - [facility] [address] able for 28 days at room temperature.Expires in days from Da te Start Date: 07/30/18 Stop Date: 08/02/18 Status: Discontinued insulin lispro 2 unit, 0.02 mL, Route: SUB-Q, Drug form: SOLN, TID-Before Meals, Dosing Weight 75, kg, PRN Blood Glucose Results, Start date: 07/30/18 20:19:00 IDENTIFICATION PRINTING MACHINE SETTER, Duration: 30 day, Stop date: 08/29/18 20:18:00 IDENTIFICATION PRINTING MACHINE SETTER Notes: (Same as: Humalog ) Roll in palms of hands gently; Do not shake `vigorou sly. "Single Patient Use Only " WASTE: F/P - Black; E - [facility] [address] able for 28 days at room temperature.Expires in days from Da te Start Date: 07/30/18 Stop Date: 08/02/18 Status: Discontinued insulin lispro 4 unit, 0.04 mL, Route: SUB-Q, Drug form: SOLN, TID-Before Meals, Dosing Weight 75, kg, PRN Blood Glucose Results, Start date: 07/30/18 20:19:00 IDENTIFICATION PRINTING MACHINE SETTER, Duration: 30 day, Stop date: 08/29/18 20:18:00 IDENTIFICATION PRINTING MACHINE SETTER Notes: (Same as: Humalog ) Roll in palms of hands gently; Do not shake `vigorou sly. "Single Patient Use Only " WASTE: F/P - Black; E - [facility] [address] able for 28 days at room temperature.Expires in days from Da te Start Date: 07/30/18 Stop Date: 08/02/18 Status: Discontinued labetalol 10 mg, 2 mL, Route: IVP, Drug form: INJ, Q6H, Dosing Weight 75, kg, PRN Hyperten thomas, Start date: 07/30/18 19:04:00 IDENTIFICATION PRINTING MACHINE SETTER, Duration: 30 day, Stop date: 08/29/18 1 9:03:00 IDENTIFICATION PRINTING MACHINE SETTER Notes: (Same as: Normodyne, Trandate)Push over 2 minutes Give bolus over 2-3 mi nutes. Start Date: 07/30/18 Stop Date: 08/02/18 Status: Discontinued lactulose 10 g/15 mL oral syrup 20 gm, 30 ml, Route: PO, Drug form: SYRP, Q6H, Dosing Weight 75, kg, PRN Constip ation, Start date: 07/30/18 19:04:00 IDENTIFICATION PRINTING MACHINE SETTER, Duration: 30 day, Stop date: 08/29/18 19:03:00 IDENTIFICATION PRINTING MACHINE SETTER Notes: (Same as:Chronulac) Start Date: 07/30/18 Stop Date: 08/02/18 Status: Discontinued Lantus 100 units/mL 20 unit, 0.2 mL, Route: SUB-Q, Drug form: SOLN, Q12H, Dosing Weight 75, kg, Star t date: 07/30/18 21:00:00 IDENTIFICATION PRINTING MACHINE SETTER, Duration: 30 day, Stop date: 08/29/18 9:00:00 IDENTIFICATION PRINTING MACHINE SETTER Notes: (Same as: Lantus)Do not hold insulin without contacting prescriberWASTE: F/P - Black; E - Municipal Trash Bin "single patient use only" Start Date: 07/30/18 Stop Date: 08/02/18 Status: Discontinued loperamide 2 mg oral capsule 2 mg=1 cap, PO, Q4H, X 7 day, # 42 cap, 0 Refill(s), Pharmacy: [facility] [id number] Start Date: 08/02/18 Stop Date: 08/09/18 Status: Completed melatonin 3 mg, 1 tab, Route: PO, Drug form: TAB, Bedtime, Dosing Weight 75, kg, PRN Insom uri, Start date: 07/30/18 19:04:00 IDENTIFICATION PRINTING MACHINE SETTER, Duration: 30 day, Stop date: 08/29/18 19 :03:00 IDENTIFICATION PRINTING MACHINE SETTER Notes: (Same as: Melatonin) Start Date: 07/30/18 Stop Date: 08/02/18 Status: Discontinued metoprolol extended release 50 mg, 1 tab, Route: PO, Drug form: ERTAB, Daily, Start date: 07/31/18 9:00:[address], Duration: 30 day, Stop date: 08/29/18 9:00:00 IDENTIFICATION PRINTING MACHINE SETTER Notes: (Same as: Toprol XL) May split tab, but do not crush. Start Date: 07/31/18 Stop Date: 08/02/18 Status: Discontinued metroNIDAZOLE 500 mg oral tablet 500 mg=1 tab, PO, ABXQ8H, X 12 day, # 36 tab, 0 Refill(s), Pharmacy: [facility] [address] [facility] [id number] Start Date: 08/02/18 Stop Date: 08/14/18 Status: Completed morphine Sulfate 2 mg, 1 mL, Route: IVP, Drug form: SOLN, Q4H, Dosing Weight 75, kg, PRN Pain Sco re 7-10, Start date: 07/31/18 3:41:00 IDENTIFICATION PRINTING MACHINE SETTER, Duration: 30 day, Stop date: 08/30/18 3:40:00 IDENTIFICATION PRINTING MACHINE SETTER Start Date: 07/31/18 Stop Date: 08/02/18 Status: Discontinued morphine Sulfate 2 mg, 0.5 mL, Route: IVP, Drug form: SOLN, Q6H, Dosing Weight 75, kg, PRN Pain S core 7-10, Start date: 07/30/18 19:04:00 IDENTIFICATION PRINTING MACHINE SETTER, Duration: 30 day, Stop date: 08/29 19:03:00 IDENTIFICATION PRINTING MACHINE SETTER Notes: (Same as:MORPhine Sulfate) Start Date: 07/30/18 Stop Date: 07/31/18 Status: Discontinued normal saline 0.9% IV 1,000 mL 1,000 mL, Rate: 100 ml/hr, Infuse over: 10 hr, Route: IV, Dosing Weight 75 kg, T otal Volume: 1,000, Start date: 07/30/18 19:04:00 IDENTIFICATION PRINTING MACHINE SETTER, Duration: 10 hr, Stop megan e: 07/31/18 5:03:00 IDENTIFICATION PRINTING MACHINE SETTER, 1.86, m2 Start Date: 07/30/18 Stop Date: 07/31/18 Status: Completed NS (Bolus) IV 1,000 mL, 1,000 ml/hr, Infuse Over: 1 hr, Route: IV, 1,000, Drug form: INJ, ONCE , Priority: STAT, Dosing Weight 75 kg, Start date: 07/30/18 14:50:00 IDENTIFICATION PRINTING MACHINE SETTER, Stop d ate: 07/30/18 14:50:00 IDENTIFICATION PRINTING MACHINE SETTER Start Date: 07/30/18 Stop Date: 07/30/18 Status: Completed ondansetron 4 mg, 2 mL, Route: IVP, Drug form: INJ, ONCE, Dosing Weight 77.273, kg, Priority : STAT, Start date: 07/30/18 14:19:00 IDENTIFICATION PRINTING MACHINE SETTER, Stop date: 07/30/18 14:19:00 IDENTIFICATION PRINTING MACHINE SETTER Notes: (Same as: [place]) MEDICATION WASTE Product Size: 4 mgProduct Was mirna: ___ mg Start Date: 07/30/18 Stop Date: 07/30/18 Status: Completed ondansetron 4 mg, 2 mL, Route: IVP, Drug form: INJ, Q8H, Dosing Weight 75, kg, PRN Nausea & Vomiting, Start date: 07/30/18 19:04:00 IDENTIFICATION PRINTING MACHINE SETTER, Duration: 30 day, Stop date: 08/29 19:03:00 IDENTIFICATION PRINTING MACHINE SETTER Notes: (Same as: [place]) MEDICATION WASTE Product Size: 4 mgProduct Was mirna: ___ mg Start Date: 07/30/18 Stop Date: 08/02/18 Status: Discontinued pravastatin 40 mg, 2 tab, Route: PO, Drug form: TAB, Bedtime, Dosing Weight 76.008, kg, Star t date: 07/31/18 21:00:00 IDENTIFICATION PRINTING MACHINE SETTER, Duration: 30 day, Stop date: 08/29/18 21:00:00 CS T Notes: (Same as: Pravachol) Start Date: 07/31/18 Stop Date: 08/02/18 Status: Discontinued pregabalin 150 mg, 2 cap, Route: PO, Drug form: CAP, BID, Dosing Weight 76.008, kg, Start d ate: 07/31/18 9:00:00 IDENTIFICATION PRINTING MACHINE SETTER, Duration: 30 day, Stop date: 08/29/18 21:00:00 IDENTIFICATION PRINTING MACHINE SETTER Notes: (Same as: Lyrica) Start Date: 07/31/18 Stop Date: 08/02/18 Status: Discontinued Protonix 40 mg, 1 tab, Route: PO, Drug form: ECTAB, Before Dinner, Dosing Weight 75, kg, Start date: 07/31/18 16:30:00 IDENTIFICATION PRINTING MACHINE SETTER, Duration: 30 day, Stop date: 08/29/18 16:30:0 0 IDENTIFICATION PRINTING MACHINE SETTER Notes: Tablet should not be chewed or crushed.(Same as: Protonix) Start Date: 07/31/18 Stop Date: 08/02/18 Status: Discontinued Protonix 40 mg, Route: IVP, ONCE, Dosing Weight 75, kg, Priority: STAT, Start date: 07/30 15:08:00 IDENTIFICATION PRINTING MACHINE SETTER, Stop date: 07/30/18 15:08:00 IDENTIFICATION PRINTING MACHINE SETTER Start Date: 07/30/18 Stop Date: 07/30/18 Status: Completed QUEtiapine 25 mg, 1 tab, Route: PO, Drug form: TAB, BID, Dosing Weight 76.008, kg, Start da te: 07/31/18 9:00:00 IDENTIFICATION PRINTING MACHINE SETTER, Duration: 30 day, Stop date: 08/29/18 21:00:00 IDENTIFICATION PRINTING MACHINE SETTER Notes: (Same as: SEROquel) Start Date: 07/31/18 Stop Date: 08/02/18 Status: Discontinued Reglan 10 mg, 2 mL, Route: IVP, Drug form: INJ, ONCE, Dosing Weight 75, kg, Priority: S TAT, Start date: 07/30/18 14:50:00 IDENTIFICATION PRINTING MACHINE SETTER, Stop date: 07/30/18 14:50:00 IDENTIFICATION PRINTING MACHINE SETTER Notes: (Same as: Reglan) Start Date: 07/30/18 Stop Date: 07/30/18 Status: Completed Rocephin 1 gm, Route: IVPB, Drug form: PDR/INJ, ONCE, Dosing Weight 75, kg, Priority: STA T, Start date: 07/30/18 18:27:00 IDENTIFICATION PRINTING MACHINE SETTER, Stop date: 07/30/18 18:27:00 IDENTIFICATION PRINTING MACHINE SETTER, ABX Nataliia cation: Urinary Tract Infection Start Date: 07/30/18 Stop Date: 07/30/18 Status: Completed Saline Flush 0.9% 10 mL, Route: IVP, Drug Form: INJ, Dosing Weight 77.273, kg, PRN, PRN Line Flush , Start date: 07/30/18 14:19:00 IDENTIFICATION PRINTING MACHINE SETTER, Duration: 30 day, Stop date: 08/29/18 14:18 :00 IDENTIFICATION PRINTING MACHINE SETTER Notes: (Same as: BD Posiflush) Start Date: 07/30/18 Stop Date: 08/02/18 Status: Discontinued Sodium Chloride 0.9% (Bolus) IV 1,000 mL, 1000 ml/hr, Infuse Over: 1 hr, Route: IV, 1,000, Drug form: INJ, ONCE, Priority: STAT, Dosing Weight 77.273 kg, Start date: 07/30/18 14:19:00 IDENTIFICATION PRINTING MACHINE SETTER, Stop date: 07/30/18 14:19:00 IDENTIFICATION PRINTING MACHINE SETTER Start Date: 07/30/18 Stop Date: 07/30/18 Status: Completed Sodium Chloride 0.9% (Bolus) IV 500 mL, 500 ml/hr, Infuse Over: 1 hr, Route: IV, 500, Drug form: INJ, ONCE, Prio rity: STAT, Dosing Weight 76.008 kg, Start date: 08/01/18 10:56:00 IDENTIFICATION PRINTING MACHINE SETTER, Stop megan e: 08/01/18 10:56:00 IDENTIFICATION PRINTING MACHINE SETTER Start Date: 08/01/18 Stop Date: 08/01/18 Status: Completed venlafaxine 75 mg, 1 cap, Route: PO, Drug form: ERCAP, Daily, Dosing Weight 76.008, kg, Star t date: 07/31/18 9:00:00 IDENTIFICATION PRINTING MACHINE SETTER, Duration: 30 day, Stop date: 08/29/18 9:00:00 IDENTIFICATION PRINTING MACHINE SETTER Notes: Do not open, crush, or chew.(Same As: Effexor XR) Start Date: 07/31/18 Stop Date: 08/02/18 Status: Discontinued Visipaque 320 mg/mL injectable solution 100 mL, Route: IVP, Dosing Weight 75, kg, ONCE, GFR 31 - 45 mL/min, STAT, Start date: 07/30/18 16:55:00 IDENTIFICATION PRINTING MACHINE SETTER, Stop date: 07/30/18 16:55:00 IDENTIFICATION PRINTING MACHINE SETTER Start Date: 07/30/18 Stop Date: 07/30/18 Status: Completed Zosyn + Sodium Chloride 0.9% IV 100 mL 3.375 gm, Route: IVPB, ABXQ8H, Dosing Weight 75, kg, CrCl >=20 ml/min infuse over 4 hours, Start date: 07/30/18 21:00:00 IDENTIFICATION PRINTING MACHINE SETTER, Duration: 10 day, Stop date: 08/09/18 13:00:00 IDENTIFICATION PRINTING MACHINE SETTER, ABX Indication: Infectious Diarrhea Notes: (Same as: Zosyn)Dosing based on Piperacillin component MEDICATION [place] LUCIUS Product Size: 3375 mgProduct Wasted: ___ mg Start Date: 07/30/18 Stop Date: 08/02/18 Status: Discontinued Results 1 2 3 Most recent to oldest [Reference Range]: 3.9 K/CMM (07/31/18 3:17 AM) 6.8 K/CMM (07/30/18 3:02 PM) Neutrophils # [1.5-8.1 K/CMM] 2.0 K/CMM (07/31/18 3:17 AM) 1.2 K/CMM (07/30/18 3:02 PM) Lymphocytes # [1.0-5.5 K/CMM] 0.4 K/CMM (07/31/18 3:17 AM) 0.3 K/CMM (07/30/18 3:02 PM) Monocytes # [0.0-0.8 K/CMM] 0.1 K/CMM (07/31/18 3:17 AM) 0.1 K/CMM (07/30/18 3:02 PM) Eosinophils # [0.0-0.5 K/CMM] Moderate (07/30/18 11:39 PM) Fecal Leukocyte 65 mL/min/1.73m2 1 *NA* (08/01/18 3:02 AM) 62 mL/min/1.73m2 2 *NA* (07/31/18 3:17 AM) 38 mL/min/1.73m2 3 *NA* (07/30/18 3:02 PM) eGFR See Note (08/01/18 5:18 PM) UDS Note 0.8 (07/30/18 3:02 PM) A/G Ratio [0.7-1.6] 3.5 g/dL (07/30/18 3:02 PM) Albumin Lvl [3.5-5.0 g/dL] 165 unit/L *HI* (07/30/18 3:02 PM) Alk Phos [39-136 unit/L] 29 unit/L (07/30/18 3:02 PM) ALT [0-65 unit/L] Positive *ABN* (08/01/18 5:18 PM) U Amph Scr [Negative] 8.3 mEq/L *LOW* (08/01/18 3:02 AM) 7.2 mEq/L *LOW* (07/31/18 3:17 AM) 13.2 mEq/L (07/30/18 3:02 PM) AGAP [10.0-20.0 mEq/L] 39 unit/L *HI* (07/30/18 3:02 PM) AST [0-37 unit/L] 26 *HI* (07/30/18 3:02 PM) B/C Ratio [6-25] Negative *NA* (08/01/18 5:18 PM) U Ryanne Scr [Negative] 0.3 % (07/31/18 3:17 AM) 0.3 % (07/30/18 3:02 PM) Basophils [0.0-1.0 %] Negative *NA* (08/01/18 5:18 PM) U Benzodiaz Scr [Negative] 18 mg/dL (08/01/18 3:02 AM) 25 mg/dL *HI* (07/31/18 3:17 AM) 40 mg/dL *HI* (07/30/18 3:02 PM) BUN [7-22 mg/dL] 8.0 mg/dL *LOW* (08/01/18 3:02 AM) 7.9 mg/dL *LOW* (07/31/18 3:17 AM) 8.7 mg/dL (07/30/18 3:02 PM) Calcium Lvl [8.5-10.5 mg/dL] 181 unit/L (07/30/18 3:02 PM) Total CK [12-191 unit/L] 111 mEq/L *HI* (08/01/18 3:02 AM) 111 mEq/L *HI* (07/31/18 3:17 AM) 98 mEq/L (07/30/18 3:02 PM) Chloride Lvl [95-109 mEq/L] 24 mEq/L (08/01/18 3:02 AM) 26 mEq/L (07/31/18 3:17 AM) 26 mEq/L (07/30/18 3:02 PM) CO2 [24-32 mEq/L] Negative *NA* (08/01/18 5:18 PM) U Cocaine Scr [Negative] 1.00 mg/dL (08/01/18 3:02 AM) 1.05 mg/dL (07/31/18 3:17 AM) 1.56 mg/dL *HI* (07/30/18 3:02 PM) Creatinine Lvl [0.50-1.40 mg/dL] 1.6 % (07/31/18 3:17 AM) 1.1 % (07/30/18 3:02 PM) Eosinophils [0.0-4.0 %] 4.5 g/dL *HI* (07/30/18 3:02 PM) Globulin [2.7-4.2 g/dL] 118 mg/dL *HI* (08/01/18 3:02 AM) 184 mg/dL *HI* (07/31/18 3:17 AM) 326 mg/dL *HI* (07/30/18 3:02 PM) Glucose Lvl [70-99 mg/dL] 34.9 % *LOW* (08/01/18 3:02 AM) 34.4 % *LOW* (07/31/18 1:45 PM) 36.3 % (07/31/18 3:17 AM) Hct [36.0-48.0 %] 11.4 g/dL *LOW* (08/01/18 3:02 AM) 11.0 g/dL *LOW* (07/31/18 1:45 PM) 11.9 g/dL *LOW* (07/31/18 3:17 AM) Hgb [12.0-16.0 g/dL] 1.09 (07/30/18 3:02 PM) INR [0.85-1.17] 4.3 mEq/L (08/01/18 3:02 AM) 4.2 mEq/L (07/31/18 3:17 AM) 5.2 mEq/L *HI* (07/30/18 3:02 PM) Potassium Lvl [3.5-5.1 mEq/L] 205 unit/L (07/30/18 3:02 PM) Lipase Lvl [73-393 unit/L] 31.0 % (07/31/18 3:17 AM) 14.6 % *LOW* (07/30/18 3:02 PM) Lymphocytes [20.0-40.0 %] 27.4 pg (08/01/18 3:02 AM) 27.3 pg (07/31/18 3:17 AM) 27.4 pg (07/30/18 3:02 PM) MCH [27.0-31.0 pg] 32.6 g/dL (08/01/18 3:02 AM) 32.8 g/dL (07/31/18 3:17 AM) 33.2 g/dL (07/30/18 3:02 PM) MCHC [32.0-36.0 g/dL] 84.2 fL (08/01/18 3:02 AM) 83.1 fL (07/31/18 3:17 AM) 82.4 fL (07/30/18 3:02 PM) MCV [80.0-98.0 fL] 2.1 mg/dL (07/31/18 3:17 AM) 2.7 mg/dL *HI* (07/30/18 3:02 PM) Magnesium Lvl [1.8-2.4 mg/dL] 5.6 % (07/31/18 3:17 AM) 3.8 % (07/30/18 3:02 PM) Monocytes [2.0-12.0 %] 7.5 fL (08/01/18 3:02 AM) 7.5 fL (07/31/18 3:17 AM) 7.5 fL (07/30/18 3:02 PM) MPV [7.4-10.4 fL] 139 mEq/L (08/01/18 3:02 AM) 140 mEq/L (07/31/18 3:17 AM) 132 mEq/L *LOW* (07/30/18 3:02 PM) Sodium Lvl [135-145 mEq/L] Positive *ABN* (07/30/18 11:39 PM) Occult Bld Stl [Negative] Positive *ABN* (08/01/18 5:18 PM) U Opiate Scr [Negative] Negative *NA* (08/01/18 5:18 PM) U Phencyclidine Scr [Negative] 172 K/CMM (08/01/18 3:02 AM) 156 K/CMM (07/31/18 3:17 AM) 201 K/CMM (07/30/18 3:02 PM) Platelet [133-450 K/CMM] 61.5 % (07/31/18 3:17 AM) 80.2 % *HI* (07/30/18 3:02 PM) Segs [45.0-75.0 %] 8.0 g/dL (07/30/18 3:02 PM) Total Protein [6.4-8.4 g/dL] 13.9 seconds (07/30/18 3:02 PM) PT [12.0-14.7 seconds] 31.0 seconds (07/30/18 3:02 PM) PTT [22.9-35.8 seconds] 4.15 M/CMM *LOW* (08/01/18 3:02 AM) 4.37 M/CMM (07/31/18 3:17 AM) 4.87 M/CMM (07/30/18 3:02 PM) RBC [4.20-5.40 M/CMM] 13.7 % (08/01/18 3:02 AM) 13.7 % (07/31/18 3:17 AM) 13.7 % (07/30/18 3:02 PM) RDW [11.5-14.5 %] Negative *NA* (07/30/18 3:02 PM) S Preg [Negative] 0.9 mg/dL (07/30/18 3:02 PM) Bili Total [0.2-1.3 mg/dL] Positive *ABN* (08/01/18 5:18 PM) U Cannab Scr [Negative] <0.02 ng/mL (07/30/18 3:02 PM) Troponin-I [0.00-0.40 ng/mL] Negative *NA* (07/30/18 3:19 PM) UA Bili [Negative] Moderate *ABN* (07/30/18 3:19 PM) UA Blood [Negative] Yellow *NA* (07/30/18 3:19 PM) UA Color [Yellow] Negative (07/30/18 3:19 PM) UA Glucose [Negative] Trace *ABN* (07/30/18 3:19 PM) UA Ketones [Negative] Moderate *ABN* (07/30/18 3:19 PM) UA Leuk Est [Negative] Positive *ABN* (07/30/18 3:19 PM) UA Nitrite [Negative] 6.5 (07/30/18 3:19 PM) UA pH [5.0-8.0] 30 mg/dL *ABN* (07/30/18 3:19 PM) UA Protein [Negative mg/dL] 17 /HPF *HI* (07/30/18 3:19 PM) UA RBC [0-2 /HPF] 1.020 (07/30/18 3:19 PM) UA Spec Grav [<=1.030] None Seen (07/30/18 3:19 PM) UA Sq Epi [Few] Cloudy *ABN* (07/30/18 3:19 PM) UA Turbidity [Clear] 0.2 EU/dL (07/30/18 3:19 PM) UA Urobilinogen [0.1-1.0 EU/dL] >182 /HPF *HI* (07/30/18 3:19 PM) UA WBC [0-5 /HPF] 6.4 K/CMM (08/01/18 3:02 AM) 6.3 K/CMM (07/31/18 3:17 AM) 8.4 K/CMM (07/30/18 3:02 PM) WBC [3.7-10.4 K/CMM] Negative (07/30/18 11:39 PM) C difficile DNA [Negative] 1Result Comment: The eGFR is calculated using [...] be mul tiplied by the estimated BMI. Microbiology Reports TEST: Culture: Stool STATUS: Auth (Verified) BODY SITE: SOURCE: Stool COLLECTED DATE/TIME: 07/30/18 11:39 PM FINAL REPORT Normal Enteric [place] Isolated No Salmonella, Shigella, Or Campylobacter Isolated TEST: Culture: Urine STATUS: Auth (Verified) BODY SITE: SOURCE: Urine, Clean Catch COLLECTED DATE/TIME: 07/30/18 3:09 PM FINAL REPORT <10,000 CFU/mL Skin Apurva Immunizations Given and Recorded Vaccine Date Status [...] 09/08/18 Assessment and Plan Extracted from: Title: Hospitalist Progress Note Author: Sebastian Treviño DO [...] within 24 hours pending GI clearance Extracted from: Title: Hospitalist H&P Author: Dustin Waite MD Date: [...] snort cocaine, stopped several years ago. Allergies: [place] *Medications: - Please see completed medication reconciliation list. *Review of systems: Except for what was mention in the H&P, rest of all review of systems are negative. *PHYSICAL EXAM: VitalsTmp(F)[id number] 07/30 18:23----[id number]--- 07/30 17:56----[id number]--- 07/30 16:47----[id number]--- 07/30 16:46----[id number]--- 07/30 16:32----[id number]--- 24 Hr Tmax: 97.4F (36.33c) at 07/30 14:20Vital Signs are the last 5 in the past 48 hours. General: patient lying in bed in no distress. HEENT: YVROSE, EOMI. Neck: supple, no jvd. no thyromegaly. Chest: clear breath sounds bilaterally, no wheezing, rales or bronchi. Cardiovascular: regular rate and rhythm. No murmurs or gallops. Abdomen: soft, tenderness to palpation in the midabdomen. Musculoskeletal: trace lower extremity edema bilaterally. RN MANAGED CARE: awake and alert, no focal signs. Skin: [...] Start her on IV abx, IVFs. Get shaker screen operator consult. Get stool analysis, wbc, c. diff. [...]
--- OUTSIDE RECORDS SUMMARY | 2019-05-04 10:41 | XMS REPORT | Summary of Care ---
Author Author [facility] Organization [facility] Address Unknown Phone Unavailable Encounter CHUYITA Thornton(ARIC) [id number] Date(s): 03/27/18 - 03/30/18 [facility] [address] [place] [address]- Discharge Disposition: Home or Self Care Attending Physician: Sheron Irvin MD Admitting Physician: Manuel Reyes MD Vital Signs 1 2 3 Most recent to oldest [Reference Range]: 165.1 cm (03/27/18 10:52 AM) Height 98.4 DegF (03/30/18 3:19 PM) 98.6 DegF (03/30/18 12:30 PM) 98.0 DegF (03/30/18 8:55 AM) Temperature Oral [96.4-99.1 DegF] 100/63 mmHg (03/30/18 3:19 PM) 110/75 mmHg (03/30/18 12:30 PM) 108/72 mmHg (03/30/18 8:55 AM) Blood Pressure [90-140/60-90 mmHg] 16 BRMIN (03/30/18 3:19 PM) 16 BRMIN (03/30/18 12:30 PM) 16 BRMIN (03/30/18 8:55 AM) Respiratory Rate [14-20 BRMIN] 99 bpm (03/30/18 3:19 PM) 75 bpm (03/30/18 12:30 PM) 89 bpm (03/30/18 8:55 AM) Peripheral Pulse Rate [60-100 bpm] 77.273 kg (03/27/18 10:52 AM) Weight 28.35 m2 (03/27/18 10:52 AM) Body Mass Index Problem List Condition [...] Adverse Reactions, Alerts Substance Reaction Severity Status [place] Active Medications amLODIPine 5 mg oral tablet 5 mg=1 tab, PO, BID, 0 Refill(s) Start Date: 03/30/18 Status: Ordered aspirin 81 mg, 1 tab, Route: PO, Drug form: ECTAB, Daily, Dosing Weight 77.273, kg, Star t date: 03/28/18 9:00:00 CDT, Duration: 30 day, Stop date: 04/26/18 9:00:00 CDT Notes: Do not crush or chew.(Same As: Ecotrin) Start Date: 03/28/18 Stop Date: 03/30/18 Status: Discontinued aspirin 324 mg, Route: PO, ONCE, Dosing Weight 77.273, kg, Priority: STAT, Start date: 0 03/27/18 11:33:00 CDT, Stop date: 03/27/18 11:33:00 CDT Start Date: 03/27/18 Stop Date: 03/27/18 Status: Completed Cathflo Activase 2 mg injection 1 mg, 1 mL, Route: INJ, Drug form: INJ, ONCE, Dosing Weight 77.273, kg, Start da te: 03/27/18 12:42:00 CDT, Stop date: 03/27/18 12:42:00 CDT, Occluded CVAD < 7 [place] Notes: "Syringe for catheter clearance or interventional radiology use.Reconstit [place] each vial of Cathflo Activase with 2.2 ml Sterile Water resulting in a 1 mg/ ml solution. (Same as: Activase) MEDICATION WASTE Product Size: 2 mgProd uct Wasted: ___ mg Start Date: 03/27/18 Stop Date: 03/27/18 Status: Completed Cathflo Activase 2 mg injection 1 mg, 1 mL, Route: INJ, Drug form: INJ, ONCE, Dosing Weight 77.273, kg, Start da te: 03/27/18 12:45:00 CDT, Stop date: 03/27/18 12:45:00 CDT, Occluded CVAD < 7 [place] Notes: "Syringe for catheter clearance or interventional radiology use.Reconstit [place] each vial of Cathflo Activase with 2.2 ml Sterile Water resulting in a 1 mg/ ml solution. (Same as: Activase) MEDICATION WASTE Product Size: 2 mgProd uct Wasted: ___ mg Start Date: 03/27/18 Stop Date: 03/27/18 Status: Completed Dextrose 50% Syringe 25 gm, 50 mL, Route: IVP, Drug Form: INJ, Dosing Weight 77.273, kg, PRN, PRN Blo od Glucose Results, Start date: 03/27/18 19:12:00 CDT, Duration: 30 day, Stop da te: 04/26/18 19:11:00 CDT Start Date: 03/27/18 Stop Date: 03/30/18 Status: Discontinued Dextrose 50% Syringe 12.5 gm, 25 mL, Route: IVP, Drug Form: INJ, Dosing Weight 77.273, kg, PRN, PRN B lood Glucose Results, Start date: 03/27/18 19:12:00 CDT, Duration: 30 day, Stop date: 04/26/18 19:11:00 CDT Start Date: 03/27/18 Stop Date: 03/30/18 Status: Discontinued Dilaudid 1 mg, Route: PO, Drug form: TAB, ONCE, Dosing Weight 77.273, kg, Start date: 20:50:00 CDT, Stop date: 03/27/18 20:50:00 CDT Start Date: 03/27/18 Stop Date: 03/27/18 Status: Completed Dilaudid 0.5 mg, Route: IVP, ONCE, Dosing Weight 77.273, kg, Priority: STAT, Start date: 03/27/18 14:32:00 CDT, Stop date: 03/27/18 14:32:00 CDT Start Date: 03/27/18 Stop Date: 03/27/18 Status: Completed gentamicin topical 0.1% cream 1 appl, Route: TOP, Q24H, Drug form: CRM, Start date: 03/27/18 22:00:00 CDT, Dur ation: 30 day, Stop date: 04/25/18 22:00:00 CDT Notes: (Same as: Garamycin) Start Date: 03/27/18 Stop Date: 03/30/18 Status: Discontinued glucagon 1 mg, Route: IM, Drug form: PDR/INJ, PRN, Dosing Weight 77.273, kg, PRN Blood Gl ucose Results, Start date: 03/27/18 19:12:00 CDT, Duration: 30 day, Stop date: 0 04/26/18 19:11:00 CDT Start Date: 03/27/18 Stop Date: 03/30/18 Status: Discontinued heparin 5000 units/mL injectable solution 5,000 unit, 1 mL, Route: SUB-Q, Drug form: INJ, Q8H, Dosing Weight 77.273, kg, S tart date: 03/28/18 0:00:00 CDT, Duration: 30 day, Stop date: 04/26/18 16:00:00 CDT Notes: porcine heparin Start Date: 03/28/18 Stop Date: 03/30/18 Status: Discontinued hydromorphone 2 mg, 1 tab, Route: PO, Drug form: TAB, Q4H, Dosing Weight 77.273, kg, PRN Pain Score 7-10, Start date: 03/27/18 21:52:00 CDT, Duration: 30 day, Stop date: 04/02 02/16 21:51:00 CDT Notes: (Same as: Dilaudid) Start Date: 03/27/18 Stop Date: 03/30/18 Status: Discontinued insulin glargine 30 unit, 0.3 mL, Route: SUB-Q, Drug form: SOLN, BID, Start date: 03/28/18 9:00:0 0 CDT, Duration: 30 day, Stop date: 04/26/18 17:00:00 CDT Notes: (Same as: [place])Do not hold insulin without contacting prescriberWASTE: F/P - Black; E - Municipal Trash Bin "single patient use only" Start Date: 03/28/18 Stop Date: 03/30/18 Status: Discontinued insulin glargine 30 unit, 0.3 mL, Route: SUB-Q, Drug form: SOLN, Q12H, Start date: 03/28/18 9:00: 00 CDT, Duration: 30 day, Stop date: 04/26/18 21:00:00 CDT Notes: (Same as: Lantus)Do not hold insulin without contacting prescriberWASTE: F/P - Black; E - Municipal Trash Bin "single patient use only" Start Date: 03/28/18 Stop Date: 03/27/18 Status: Canceled insulin lispro 1 unit, 0.01 mL, Route: SUB-Q, Drug form: SOLN, TID-Before Meals, Dosing Weight 77.273, kg, PRN Blood Glucose Results, Start date: 03/27/18 19:12:00 CDT, Durati on: 30 day, Stop date: 04/26/18 19:11:00 CDT Notes: (Same as: Humalog ) Roll in palms of hands gently; Do not shake `vigorou sly. "Single Patient Use Only " WASTE: F/P - Black; E - Municipal Trash [address] St able for 28 days at room temperature.Expires in days from Da te Start Date: 03/27/18 Stop Date: 03/30/18 Status: Discontinued insulin lispro 2 unit, 0.02 mL, Route: SUB-Q, Drug form: SOLN, TID-Before Meals, Dosing Weight 77.273, kg, PRN Blood Glucose Results, Start date: 03/27/18 19:12:00 CDT, Durati on: 30 day, Stop date: 04/26/18 19:11:00 CDT Notes: (Same as: Humalog ) Roll in palms of hands gently; Do not shake `vigorou sly. "Single Patient Use Only " WASTE: F/P - Black; E - [facility] Tr[address] St able for 28 days at room temperature.Expires in days from Da te Start Date: 03/27/18 Stop Date: 03/30/18 Status: Discontinued insulin lispro 3 unit, 0.03 mL, Route: SUB-Q, Drug form: SOLN, TID-Before Meals, Dosing Weight 77.273, kg, PRN Blood Glucose Results, Start date: 03/27/18 19:12:00 CDT, Durati on: 30 day, Stop date: 04/26/18 19:11:00 CDT Notes: (Same as: Humalog ) Roll in palms of hands gently; Do not shake `vigorou sly. "Single Patient Use Only " WASTE: F/P - Black; E - [facility] [address] St able for 28 days at room temperature.Expires in days from Da te Start Date: 03/27/18 Stop Date: 03/30/18 Status: Discontinued insulin lispro 4 unit, 0.04 mL, Route: SUB-Q, Drug form: SOLN, TID-Before Meals, Dosing Weight 77.273, kg, PRN Blood Glucose Results, Start date: 03/27/18 19:12:00 CDT, Durati on: 30 day, Stop date: 04/26/18 19:11:00 CDT Notes: (Same as: Humalog ) Roll in palms of hands gently; Do not shake `vigorou sly. "Single Patient Use Only " WASTE: F/P - Black; E - [facility] [address] St able for 28 days at room temperature.Expires in days from Da te Start Date: 03/27/18 Stop Date: 03/30/18 Status: Discontinued insulin lispro 5 unit, 0.05 mL, Route: SUB-Q, Drug form: SOLN, TID-Before Meals, Dosing Weight 77.273, kg, PRN Blood Glucose Results, Start date: 03/27/18 19:12:00 CDT, Durati on: 30 day, Stop date: 04/26/18 19:11:00 CDT Notes: (Same as: Humalog ) Roll in palms of hands gently; Do not shake `vigorou sly. "Single Patient Use Only " WASTE: F/P - Black; E - [facility] [address] St able for 28 days at room temperature.Expires in days from Da te Start Date: 03/27/18 Stop Date: 03/30/18 Status: Discontinued insulin lispro 100 units/mL injectable solution 5 unit=0.05 mL, SUB-Q, TID-Before Meals, PRN Blood Glucose Results, 0 Refill(s) Start Date: 03/30/18 Status: Ordered insulin lispro 100 units/mL injectable solution 4 unit=0.04 mL, SUB-Q, TID-Before Meals, PRN Blood Glucose Results, 0 Refill(s) Start Date: 03/30/18 Status: Ordered insulin lispro 100 units/mL injectable solution 3 unit=0.03 mL, SUB-Q, TID-Before Meals, PRN Blood Glucose Results, 0 Refill(s) Start Date: 03/30/18 Status: Ordered insulin lispro 100 units/mL injectable solution 2 unit=0.02 mL, SUB-Q, TID-Before Meals, PRN Blood Glucose Results, 0 Refill(s) Start Date: 03/30/18 Status: Ordered insulin lispro 100 units/mL injectable solution 1 unit=0.01 mL, SUB-Q, TID-Before Meals, PRN Blood Glucose Results, 0 Refill(s) Start Date: 03/30/18 Status: Ordered Levemir 30 unit, Route: SUB-Q, BID, Dosing Weight 77.273, kg, Start date: 03/28/18 9:00: 00 CDT, Duration: 30 day, Stop date: 04/26/18 17:00:00 CDT Start Date: 03/28/18 Stop Date: 03/27/18 Status: Canceled Levemir Route: SUB-Q, BID, Dosing Weight 77.273, kg, Start date: 03/28/18 9:00:00 CDT, D uration: 30 day, Stop date: 04/26/18 17:00:00 CDT Start Date: 03/28/18 Stop Date: 03/27/18 Status: Deleted metoclopramide 10 mg, Route: IVP, Drug form: INJ, ONCE, Dosing Weight 77.273, kg, Priority: STA T, Start date: 03/27/18 12:04:00 CDT, Stop date: 03/27/18 12:04:00 CDT Start Date: 03/27/18 Stop Date: 03/27/18 Status: Completed metoprolol 50 mg oral tablet, extended release 50 mg=1 tab, PO, Daily, 0 Refill(s) Start Date: 03/27/18 Status: Ordered morphine Sulfate 4 mg, Route: IM, ONCE, Dosing Weight 77.273, kg, Priority: STAT, Start date: 13:48:00 CDT, Stop date: 03/27/18 13:48:00 CDT Start Date: 03/27/18 Stop Date: 03/27/18 Status: Completed morphine Sulfate 4 mg, Route: IM, ONCE, Dosing Weight 77.273, kg, Priority: STAT, Start date: 13:47:00 CDT, Stop date: 03/27/18 13:47:00 CDT Start Date: 03/27/18 Stop Date: 03/27/18 Status: Completed morphine Sulfate 4 mg, Route: IVP, ONCE, Dosing Weight 77.273, kg, Priority: STAT, Start date: 12:04:00 CDT, Stop date: 03/27/18 12:04:00 CDT Start Date: 03/27/18 Stop Date: 03/27/18 Status: Completed Norvasc 5 mg, 1 tab, Route: PO, Drug form: TAB, BID, Dosing Weight 77.273, kg, Start megan e: 03/29/18 17:00:00 CDT, Duration: 30 day, Stop date: 04/28/18 9:00:00 CDT Notes: (Same as: Norvasc) Start Date: 03/29/18 Stop Date: 03/30/18 Status: Discontinued pravastatin 40 mg, 2 tab, Route: PO, Drug form: TAB, Bedtime, Dosing Weight 77.273, kg, Prio rity: Routine, Start date: 03/29/18 21:00:00 CDT, Duration: 30 day, Stop date: 0 04/27/18 21:00:00 CDT Notes: (Same as: Pravachol) Start Date: 03/29/18 Stop Date: 03/30/18 Status: Discontinued pravastatin 20 mg oral tablet 40 mg=2 tab, PO, Bedtime, 0 Refill(s) Start Date: 03/30/18 Status: Ordered pregabalin 150 mg, 2 cap, Route: PO, Drug form: CAP, BID, Dosing Weight 77.273, kg, Start d ate: 03/28/18 9:00:00 CDT, Duration: 30 day, Stop date: 04/26/18 17:00:00 CDT Notes: (Same as: Lyrica) Start Date: 03/28/18 Stop Date: 03/30/18 Status: Discontinued ProAir HFA 90 mcg/inh inhalation aerosol with adapter 2 puff, Route: INHALER, Drug Form: AERO/A, Dosing Weight 77.273, kg, Q6H, PRN Wh eezing, Start date: 03/27/18 21:52:00 CDT, Duration: 30 day, Stop date: 04/26/18 21:51:00 CDT Notes: Albuterol 90 microgram/inh 8gm HFAWASTE: Aerosol - Return to [facility] as: Ventolin, Proventil Start Date: 03/27/18 Stop Date: 03/30/18 Status: Discontinued QUEtiapine 25 mg, 1 tab, Route: PO, Drug form: TAB, BID, Dosing Weight 77.273, kg, Start da te: 03/28/18 9:00:00 CDT, Duration: 30 day, Stop date: 04/26/18 17:00:00 CDT Notes: (Same as: SEROquel) Start Date: 03/28/18 Stop Date: 03/30/18 Status: Discontinued Saline Flush 0.9% 10 mL, Route: IVP, Drug Form: INJ, Dosing Weight 77.273, kg, PRN, PRN Line Flush , Start date: 03/27/18 11:33:00 CDT, Duration: 30 day, Stop date: 04/26/18 11:32 :00 CDT Notes: Same as: BD Posiflush Sterile Start Date: 03/27/18 Stop Date: 03/28/18 Status: Discontinued spironolactone 50 mg, Route: PO, Drug form: TAB, Daily, Dosing Weight 77.273, kg, Start date: 0 03/28/18 9:00:00 CDT, Duration: 30 day, Stop date: 04/26/18 9:00:00 CDT Start Date: 03/28/18 Stop Date: 03/27/18 Status: Canceled vancomycin 1 g intravenous injection 750 mg, IV, Q18H, # 10 bag, 0 Refill(s), Pharmacy: [facility] [id number] Start Date: 03/30/18 Stop Date: 04/10/18 Status: Ordered vancomycin 750 mg + Dextrose 5% in Water IV 250 mL Route: IVPB, Q8H, Dosing Weight 77.273, kg, Start date: 03/28/18 0:00:00 CDT, Du ration: 14 day, Stop date: 04/10/18 16:00:00 CDT, ABX Indication: Skin/Soft Tiss ue Infection Notes: TIME CRITICAL MEDICATION(Same As: Vancocin)Infusion rate< 1000 mg: infuse over 1 [id number] - 1500 mg: infuse over 1.5 [id number] - 2000 mg: infuse over 2 hours> 2001 mg: infuse over 2.5 hoursFor adult patients only: Round to nearest 250 mg per Medical Staff approval MEDICATION WASTE Product Size: 1000 mgProduct Wasted: ___ mg Start Date: 03/28/18 Stop Date: 03/29/18 Status: Discontinued venlafaxine 37.5 mg oral capsule, extended release 75 mg=2 cap, PO, Daily, 0 Refill(s) Start Date: 03/30/18 Status: Ordered venlafaxine extended release 75 mg, 2 cap, Route: PO, Drug form: ERCAP, Daily, Dosing Weight 77.273, kg, Star t date: 03/28/18 9:00:00 CDT, Duration: 30 day, Stop date: 04/26/18 9:00:00 CDT Notes: Do not open, crush, or chew.(Same As: Effexor XR) Start Date: 03/28/18 Stop Date: 03/30/18 Status: Discontinued Zosyn + Sodium Chloride 0.9% IV 100 mL 3.375 gm, Route: IVPB, ABXQ8H, Dosing Weight 77.273, kg, CrCl >=20 ml/min infuse over 4 hours, Start date: 03/27/18 17:00:00 CDT, Duration: 14 day, Stop date: 04/10/18 9:00:00 CDT, ABX Indication: Skin/Soft Tissue Infection Notes: (Same as: Zosyn)Dosing based on Piperacillin component MEDICATION WA LUCIUS Product Size: 3375 mgProduct Wasted: ___ mg Start Date: 03/27/18 Stop Date: 03/30/18 Status: Discontinued Zosyn 3.375 g intravenous injection 3.375 gm, IV, Q8H, X 10 day, # 30 bag, 0 Refill(s), Pharmacy: [facility] [employer] [facility] [place] [id number] Start Date: 03/30/18 Stop Date: 04/09/18 Status: Ordered Results ELECTROLYTES 1 2 3 Most recent to oldest [Reference Range]: 144 mEq/L (03/28/18 6:14 AM) 142 mEq/L (03/27/18 3:12 PM) 136 mEq/L (03/27/18 2:16 PM) Sodium Lvl [135-145 mEq/L] 4.9 mEq/L (03/28/18 6:14 AM) 5.2 mEq/L *HI* (03/27/18 3:12 PM) 5.7 mEq/L *HI* (03/27/18 2:16 PM) Potassium Lvl [3.5-5.1 mEq/L] 106 mEq/L (03/28/18 6:14 AM) 106 mEq/L (03/27/18 3:12 PM) 104 mEq/L (03/27/18 2:16 PM) Chloride Lvl [95-109 mEq/L] 31 mEq/L (03/28/18 6:14 AM) 25 mEq/L (03/27/18 3:12 PM) 28 mEq/L (03/27/18 2:16 PM) CO2 [24-32 mEq/L] 11.9 mEq/L (03/28/18 6:14 AM) 16.2 mEq/L (03/27/18 3:12 PM) 9.7 mEq/L *LOW* (03/27/18 2:16 PM) AGAP [10.0-20.0 mEq/L] CHEM PANEL 1 2 3 Most recent to oldest [Reference Range]: 1.34 mg/dL (03/28/18 6:14 AM) 1.35 mg/dL (03/27/18 3:12 PM) 1.42 mg/dL *HI* (03/27/18 2:16 PM) Creatinine Lvl [0.50-1.40 mg/dL] 46 mL/min/1.73m2 1 *NA* (03/28/18 6:14 AM) 46 mL/min/1.73m2 2 *NA* (03/27/18 3:12 PM) 43 mL/min/1.73m2 3 *NA* (03/27/18 2:16 PM) eGFR 32 mg/dL *HI* (03/28/18 6:14 AM) 34 mg/dL *HI* (03/27/18 3:12 PM) 35 mg/dL *HI* (03/27/18 2:16 PM) BUN [7-22 mg/dL] 25 (03/27/18 2:16 PM) B/C Ratio [6-25] 164 mg/dL *HI* (03/28/18 6:14 AM) 169 mg/dL *HI* (03/27/18 3:12 PM) 209 mg/dL *HI* (03/27/18 2:16 PM) Glucose Lvl [70-99 mg/dL] 7.9 g/dL (03/27/18 2:16 PM) Total Protein [6.4-8.4 g/dL] 3.2 g/dL *LOW* (03/27/18 2:16 PM) Albumin Lvl [3.5-5.0 g/dL] 4.7 g/dL *HI* (03/27/18 2:16 PM) Globulin [2.7-4.2 g/dL] 0.7 (03/27/18 2:16 PM) A/G Ratio [0.7-1.6] 8.8 mg/dL (03/28/18 6:14 AM) 8.9 mg/dL (03/27/18 3:12 PM) 9.1 mg/dL (03/27/18 2:16 PM) Calcium Lvl [8.5-10.5 mg/dL] 2.9 mg/dL (03/27/18 2:16 PM) Phosphorus [2.5-4.5 mg/dL] 2.3 mg/dL (03/27/18 2:16 PM) Magnesium Lvl [1.8-2.4 mg/dL] 32 unit/L (03/27/18 2:16 PM) ALT [0-65 unit/L] 30 unit/L (03/27/18 2:16 PM) AST [0-37 unit/L] 178 unit/L *HI* (03/27/18 2:16 PM) Alk Phos [39-136 unit/L] 0.3 mg/dL (03/27/18 2:16 PM) Bili Total [0.2-1.3 mg/dL] 1Result Comment: [...] 3 Most recent to oldest [Reference Range]: 36 unit/L (03/28/18 12:43 AM) 48 unit/L (03/27/18 8:40 PM) 44 unit/L (03/27/18 2:16 PM) Total CK [12-191 unit/L] 1.2 ng/mL (03/27/18 2:16 PM) CK MB [0.5-3.6 ng/mL] 2.7 *HI* (03/27/18 2:16 PM) CK MB Index [0.0-2.5] <0.02 ng/mL (03/28/18 12:43 AM) 0.02 ng/mL (03/27/18 8:40 PM) <0.02 ng/mL (03/27/18 2:16 PM) Troponin-I [0.00-0.40 ng/mL] LIPIDS 1 2 3 Most recent to oldest [Reference Range]: 4.56 (03/29/18 4:58 AM) CHD Risk [3.90-5.80] 178 mg/dL (03/29/18 4:58 AM) Chol [<=199 mg/dL] 234 mg/dL *HI* (03/29/18 4:58 AM) Trig [<=149 mg/dL] 39 mg/dL *LOW* (03/29/18 4:58 AM) HDL [>=61 mg/dL] 92 mg/dL (03/29/18 4:58 AM) LDL (Calculated) [<=99 mg/dL] 47 *NA* (03/29/18 4:58 AM) VLDL TOXICOLOGY 1 2 3 Most recent to oldest [Reference Range]: 0800 *NA* (03/29/18 7:39 AM) Vanco Tr TND 25.8 ug/ml *NA* (03/30/18 5:08 AM) Vanco Lvl 37.6 ug/ml *NA* (03/29/18 7:39 AM) Vanco Tr URINE AND STOOL 1 2 3 Most recent to oldest [Reference Range]: Clear (03/27/18 2:16 PM) UA Turbidity [Clear] Ltyellow *NA* (03/27/18 2:16 PM) UA Color 7.0 (03/27/18 2:16 PM) UA pH [5.0-8.0] 1.010 (03/27/18 2:16 PM) UA Spec Grav [<=1.030] 500 mg/dL *ABN* (03/27/18 2:16 PM) UA Glucose [Negative mg/dL] Small *ABN* (03/27/18 2:16 PM) UA Blood [Negative] Negative mg/dL *NA* (03/27/18 2:16 PM) UA Ketones [Negative mg/dL] 30 mg/dL *ABN* (03/27/18 2:16 PM) UA Protein [Negative mg/dL] <=1.0 mg/dL *NA* (03/27/18 2:16 PM) UA Urobilinogen [0.1-1.0 mg/dL] Negative *NA* (03/27/18 2:16 PM) UA Bili [Negative] Small *ABN* (03/27/18 2:16 PM) UA Leuk Est [Negative] Negative (03/27/18 2:16 PM) UA Nitrite [Negative] 9 /HPF *HI* (03/27/18 2:16 PM) UA WBC [0-5 /HPF] 6 /HPF *HI* (03/27/18 2:16 PM) UA RBC [0-2 /HPF] Occasional /LPF *NA* (03/27/18 2:16 PM) UA Sq Epi [Few /LPF] HEMATOLOGY 1 2 3 Most recent to oldest [Reference Range]: 7.4 K/CMM (03/27/18 2:16 PM) WBC [3.7-10.4 K/CMM] 4.56 M/CMM (03/27/18 2:16 PM) RBC [4.20-5.40 M/CMM] 12.6 g/dL (03/27/18 2:16 PM) Hgb [12.0-16.0 g/dL] 38.1 % (03/27/18 2:16 PM) Hct [36.0-48.0 %] 83.5 fL (03/27/18 2:16 PM) MCV [80.0-98.0 fL] 27.7 pg (03/27/18 2:16 PM) MCH [27.0-31.0 pg] 33.2 g/dL (03/27/18 2:16 PM) MCHC [32.0-36.0 g/dL] 14.4 % (03/27/18 2:16 PM) RDW [11.5-14.5 %] 7.5 fL (03/27/18 2:16 PM) MPV [7.4-10.4 fL] 189 K/CMM (03/27/18 2:16 PM) Platelet [133-450 K/CMM] 70.1 % (03/27/18 2:16 PM) Segs [45.0-75.0 %] 21.2 % (03/27/18 2:16 PM) Lymphocytes [20.0-40.0 %] 5.6 % (03/27/18 2:16 PM) Monocytes [2.0-12.0 %] 2.3 % (03/27/18 2:16 PM) Eosinophils [0.0-4.0 %] 0.8 % (03/27/18 2:16 PM) Basophils [0.0-1.0 %] 5.2 K/CMM (03/27/18 2:16 PM) Segs-Bands # [1.5-8.1 K/CMM] 1.6 K/CMM (03/27/18 2:16 PM) Lymphocytes # [1.0-5.5 K/CMM] 0.4 K/CMM (03/27/18 2:16 PM) Monocytes # [0.0-0.8 K/CMM] 0.2 K/CMM (03/27/18 2:16 PM) Eosinophils # [0.0-0.5 K/CMM] 0.1 K/CMM (03/27/18 2:16 PM) Basophils # [0.0-0.2 K/CMM] Microbiology Reports TEST: Culture: Urine STATUS: Auth (Verified) BODY SITE: SOURCE: Urine, Clean Catch COLLECTED DATE/TIME: 03/27/18 3:23 PM FINAL REPORT No Growth Immunizations Given and Recorded Vaccine Date Status [...] Reg Smoking Cessation Counseling No entered on: 03/27/18 Assessment and Plan Extracted from: Title: Clinical Document Author: Chilango Rosales MD Date: 03/30/18 Progress Note Chilango Rosales M.D. [facility] Follow up reason:Chest pain Doing ok no [...] DVT and pulmonary embolism in the past. VitalsTmp(F)Tmp(C)[id number] 03/30 08:[id number]---[id number]--------- 03/30 03:[id number]/76---[id number]------ 03/29 23:[id number]---[id number]------ 03/29 20:[id number]/86---[id number]------ 03/29 18:04 130/84 NECK: No JVD. HEENT: EOMI. HEART: S1, S2 is normal with a soft ejection systolic murmur 2/6 intensity in left leg parasternal lower area or tricuspid area. CHEST: Bilateral air entry present. No wheezing, no crepitation. ABDOMEN: Bowel sounds present, nontender, nondistended. NEUROLOGIC: Alert, awake, oriented x 3, no signs of lateralization. EXTREMITIES: No edema. Labs & Diagnostic Work up: Labs (Last four charted values) WBC 7.4(MAR 27) Hgb 12.6(MAR 27) Hct 38.1(MAR 27) Plt 189(MAR 27) Na 144(MAR 28)142(MAR 27)136(MAR 27) K 4.9(MAR 28)H 5.2(MAR 27)H 5.7(MAR 27) CO2 31(MAR 28)25(MAR 27)28(MAR 27) Cl 106(MAR 28)106(MAR 27)104(MAR 27) Cr 1.34(MAR 28)1.35(MAR 27)H 1.42(MAR 27) BUN H 32(MAR 28)H 34(MAR 27)H 35(MAR 27) Glucose Random H 164(MAR 28)H 169(MAR 27)H 209(MAR 27) Mg 2.3(MAR 27) Phos 2.9(MAR 27) Ca 8.8(MAR 28)8.9(MAR 27)9.1(MAR 27) Troponin <0.02(MAR 28)0.02(MAR 27)<0.02(MAR 27) CK MB 1.2(MAR 27) Total CK 36(MAR 28)48(MAR 27)44(MAR 27) Medications Medications (20) Active Scheduled: (10) [...] test normal -Chest pain: last cath at [facility] showed 50% LAD disease -Continue ASA and statin -ok to discharge from cardiac stand point Extracted from: Title: Clinical Document Author: Nathan Molina MD Date: 03/27/18 History and physical. CHIEF COMPLAINT : Chest pain HPI : This is a 52-year-old female patient with history of diabetes mellitus hypertension hyperlipidemia hepatitis C history of cirrhosis coronary artery disease, CHF with EF of 45-50% history of polysubstance abuse bipolar disorder right upper extremity below elbow amputation who has had recent admission to [facility] and discharged yesterday discharge diagnosis was right [...] Surgical history : As above Allergies (1) ActiveReaction NorcoNone Documented Home Medications (9) Active aspirin 81 [...] Signs (last 24 hrs) Last Charted Temp Oral97.3 DegF (MAR 27:52) Heart Rate Nltzrh46 bpm (MAR 27:) Resp Rate L 12BRMIN (MAR 27:) VYV822 mmHg (MAR 27:) DBP90 mmHg (MAR 27:) NkT359 % (MAR 27:) Agxvyj93.273 kg (MAR 27:52) Ltgdjp571.1 cm (MAR 27:) BMI28.35 (MAR 27:) General exam patient is alert oriented 3 [...] noted Labs (Last four charted values) WBC 7.4(MAR 27) Hgb 12.6(MAR 27) Hct 38.1(MAR 27) Plt 189(MAR 27) Na 136(MAR 27) K H 5.7(MAR 27) CO2 28(MAR 27) Cl 104(MAR 27) Cr H 1.42(MAR 27) BUN H 35(MAR 27) Glucose Random H 209(MAR 27) Mg 2.3(MAR 27) Phos 2.9(MAR 27) Ca 9.1(MAR 27) Troponin <0.02(MAR 27) CK MB 1.2(MAR 27) Total CK 44(MAR 27) Medications (1) Active Scheduled: (0) Continuous: (0) PRN: (1) sodium chloride 0.9% 10ml sterile flush syr BD 10 mL, IVP, PRN Vital Signs (last 24 hrs) Last Charted Temp Oral97.3 DegF (MAR 27 10:52) Heart Rate Njfdxc14 bpm (MAR 27 15:19) Resp Rate L 12BRMIN (MAR 27 15:) RLZ130 mmHg (MAR 27 15:19) DBP90 mmHg (MAR 27 15:19) BjS243 % (MAR 27 15:) Rnginz97.273 kg (MAR 27 10:52) Ytptqr608.1 cm (MAR 27 10:52) BMI28.35 (MAR 27 10:52) Imaging Studies (last 36 hours) Chest 1view DX 03/27/2018 12:17 Impression: 1. No active disease. 2. The tip of the right upper extremity PICC is in the superior vena cava. SL: [id number] Assesment and Plan This is a 52-year-old female patient with multiple comorbidities as above who was recently admitted for right fifth toe osteomyelitis and cellulitis was on IV antibiotics discharged was [facility] facility now comes back with chest pain [...] code Plan DVT prophylaxis CODE STATUS Addendum Noted creatinine - improved. K down to 5.2 by Jesse, I will hold the lisinopril and diuretics for now Nathan Underwood She was on Lasix and Spiranolactone per notes on The list of medications from the [facility] needs to be clarified with the 03/27/2018 [facility] 22:00
--- OUTSIDE RECORDS SUMMARY | 2019-05-04 10:42 | XMS REPORT | Summary of Care ---
Author Author [facility] Organization [facility] Address Unknown Phone Unavailable Encounter CHUYITA Thornton(ARIC) [id number] Date(s): 03/27/18 - 03/30/18 [facility] [address] [place] [address]- Encounter Diagnosis Atherosclerotic heart disease of [place] coronary artery with unspecified angina pectoris (Final) - 04/10/18 Type 1 diabetes mellitus with other specified complication (Final) - Type 1 diabetes mellitus with foot ulcer (Final) - Non-pressure chronic ulcer of other part of right foot with unspecified severity (Final) - Other osteomyelitis, ankle and foot (Final) - Cellulitis of right lower limb (Final) - Other chronic pain (Final) - Unspecified viral hepatitis C without hepatic coma (Final) - Sleep apnea, unspecified (Final) - Bipolar disorder, unspecified (Final) - Alcoholic cirrhosis of liver without ascites (Final) - Irritable bowel syndrome without diarrhea (Final) - intermediate (current) use of aspirin (Final) - Hypertensive heart disease with heart failure (Final) - Chronic diastolic (congestive) heart failure (Final) - Cannabis abuse, uncomplicated (Final) - Bifascicular block (Final) - Unspecified right bundle-branch block (Final) - Acquired absence of right hand (Final) - [facility]charge Dis[facility] Attending Physician: Sheron Irvin MD Admitting [...] Adverse Reactions, Alerts Substance Reaction Severity Status [place] Active Medications amLODIPine 5 mg oral tablet 5 mg=1 tab, PO, BID, 0 Refill(s) Start Date: 03/30/18 Stop Date: 08/02/18 Status: Discontinued aspirin 81 mg, 1 tab, Route: PO, [...] 03/27/18 12:42:00 CDT, Occluded CVAD < 7 [place]iqu[place] Notes: "Syringe for catheter clearance or interventional radiology use.Reconstit cachorro each vial of Cathflo Activase with 2.2 [...] 03/27/18 12:45:00 CDT, Occluded CVAD < 7 [place] Notes: "Syringe for catheter clearance or interventional radiology use.Reconstit cachorro each vial of Cathflo Activase with 2.2 [...] date: 04/26/18 17:00:00 CDT Notes: (Same as: Lantus)Do not hold [...] Glucose Results, 0 Refill(s) Start Date: 03/30/18 Stop Date: 08/12/18 Status: Discontinued insulin lispro 100 units/mL injectable solution 4 unit=0.04 mL, SUB-Q, TID-Before Meals, PRN Blood Glucose Results, 0 Refill(s) Start Date: 03/30/18 Stop Date: 08/12/18 Status: Discontinued insulin lispro 100 units/mL injectable solution 3 unit=0.03 mL, SUB-Q, TID-Before Meals, PRN Blood Glucose Results, 0 Refill(s) Start Date: 03/30/18 Stop Date: 08/12/18 Status: Discontinued insulin lispro 100 units/mL injectable solution 2 unit=0.02 mL, SUB-Q, TID-Before Meals, PRN Blood Glucose Results, 0 Refill(s) Start Date: 03/30/18 Stop Date: 08/12/18 Status: Discontinued insulin lispro 100 units/mL injectable solution 1 unit=0.01 mL, SUB-Q, TID-Before Meals, PRN Blood Glucose Results, 0 Refill(s) Start Date: 03/30/18 Stop Date: 08/12/18 Status: Discontinued Levemir 30 unit, Route: SUB-Q, BID, Dosing [...] HFAWASTE: Aerosol - Return to Pharmacy Sa me as: Ventolin, Proventil Start Date: 03/27/18 Stop [...] Q18H, # 10 bag, 0 Refill(s), Pharmacy: [facility] [id number] Start Date: 03/30/18 Stop Date: 04/10/18 Status: Completed vancomycin 750 mg + Dextrose 5% in Water IV 250 mL Route: IVPB, Q8H, Dosing Weight 77.273, kg, Start date: 03/28/18 0:00:00 CDT, Du ration: 14 day, Stop date: 04/10/18 16:00:00 CDT, ABX Indication: Skin/Soft Tiss ue Infection Notes: TIME CRITICAL MEDICATION(Same As: Vancocin)Infusion rate< 1000 mg: infuse over 1 [id number] - 1500 mg: infuse over 1.5 [id number] - 2000 mg: infuse over 2 hours> [...] day, # 30 bag, 0 Refill(s), Pharmacy: [facility] [id number] Start Date: 03/30/18 Stop Date: 04/09/18 Status: Completed Results ELECTROLYTES 1 2 3 [...] [0.0-1.0 %] 5.2 K/CMM (03/27/18 2:16 PM) Neutrophils # [1.5-8.1 K/CMM] 1.6 K/CMM (03/27/18 2:16 [...] Date: 03/30/18 Progress Note Chilango Rosales M.D. [facility] Follow up reason:Chest pain Doing ok [...] DVT and pulmonary embolism in the past. VitalsTmp(F)Tmp(C)[id number] 03/30 08:[id number]/72---[id number]--------- 03/30 03:0998.136.00wqpa129/76---[id number]------ 03/29 23:[id number]/69---[id number]------ 03/29 20:4097.936.75sjed187/86---[id number]------ 03/29 18:04 130/84 NECK: No JVD. HEENT: [...] test normal -Chest pain: last cath at [facility] showed 50% LAD disease -Continue ASA and [...] amputation who has had recent admission to [facility] and discharged yesterday discharge diagnosis was right [...] Temp Oral97.3 DegF (MAR 27:52) Heart Rate Fnzkmr51 bpm (MAR 27 15:19) Resp Rate L 12BRMIN (MAR 27 15:) BXX764 mmHg (MAR 27 15:19) DBP90 mmHg (MAR 27 15:) HjY181 % (MAR 27 15:) Ejjjzt24.273 kg (MAR 27 10:52) Armrwj073.1 cm (MAR 27 10:52) BMI28.35 (MAR 27 10:52) General exam patient is [...] Oral97.3 DegF (MAR 27 10:52) Heart Rate Evkgji74 bpm (MAR 27 15:19) Resp Rate L 12BRMIN (MAR 27 15:) PVU651 mmHg (MAR 27 15:19) DBP90 mmHg (MAR 27 15:19) SbZ841 % (MAR 27 15:19) Ozyoby72.273 kg (MAR 27 10:52) Ynzzrs790.1 cm (MAR 27 10:52) BMI28.35 (MAR 27 10:52) Imaging Studies (last 36 hours) Chest 1view DX 03/27/2018 12:17 Impression: 1. No active disease. 2. The tip of the right upper extremity PICC is in the superior vena cava. SL: [id number] Assesment and Plan This is a 52-year-old female patient with multiple comorbidities as above who was recently admitted for right fifth toe osteomyelitis and cellulitis was on IV antibiotics discharged was nursing home facility now comes back with chest pain [...] on The list of medications from the [facility] needs to be clarified with the 03/27/2018 [facility] 22:00
--- NOTE | 2019-05-04 14:05 | NUR ---
1405 Bedside report received from Padma MCKEON. Alert oriented and appropriate, PERRLA, respirations even and unlabored to room air. Pulses x4 extremities . Pedal pulses PT/DP, 2 PT 1+/1+ DP 2+/2+. Cap fill brisk < 3 sec Rt arm w/0 hand Left arm no bp due to previous breast surgery.. Skin warm and dry integrity appears W/D IV rt venous groin sheath To be pulled at 440pm and dc home at 540pm. Presents healthy w/o s/s of infiltration or complaint. Abdomen soft and supple. pt offered toileting, denies need to urinate or defecate. No personal affects with patient. Significant other Trent . Pt and Trent verbalizes understanding of POC. Currently w/o complaint of pain or need. Remains NPO till sheath pull to rt groin no Gross issues pain .pallor,pressure or dysrhythmia ds/rn
--- NOTE | 2019-05-04 16:30 | NUR ---
1630 Medicated Morphine 4mg ivp for discomfort and preemptory sheath pull pain. Immediate relief from pain noted and proceeded with sheath pull ds/rn
--- NOTE | 2019-05-04 16:47 | NUR ---
1952 Padma Rn and Kevin RTC at bedside for sheath pull.Sheath with iv pull done and manual pressure applied w/o complications and tegederm and 2x2 [address] PP present. Denies c/o NO gross issues with pain,pallor pressure or dysthymia. Tolerated po intake and back to baseline orientation. Trent here and discharge instructions completed with full understanding.joe/jeff
--- NOTE | 2019-05-04 17:40 | NUR ---
1740 Pt meets DC criteria. Rt groin Mynx site and veinous sheath assessed for s/s of complication and presence of hematoma. warm, dry, no discolor, and pulses present. Distal tip appears intact. VS WNL. Pt denies pain, sob, or need at this time. Significant other Trent at bedside. Given Mynx card,stent cards and prescription to be filled.Review of discharge paperwork and follow up instructions. verbalized understanding. Pt to wheelchair and transported to front of hospital. Transferred to private vehicle under own strength w/o incident with DC paperwork in hand. -ds/rn
--- NOTE | 2019-05-04 20:15 | Operative Report ---
DATE OF PROCEDURE: 05/04/2019 SURGEON: Gage Bonilla MD INDICATIONS: Coronary artery disease, angina with abnormal stress test. PROCEDURES PERFORMED: 1. Left heart catheterization, selective coronary angiography. 2. Stent placement to the proximal and mid left anterior descending artery. 3. Deployment of right groin Mynx closure device. 4. Placement of central venous catheter. COMPLICATIONS: None. RECOMMENDATIONS: Dual antiplatelet therapy for life. DESCRIPTION OF PROCEDURE: Access was obtained in the right femoral artery. A 6-Danish sheath was placed to obtain access in the right femoral pain. A 4-Danish sheath was placed for central venous access. Coronary angiography demonstrated mild disease in the left main coronary artery, proximal and mid left anterior descending artery 90% stenosis, diagonal artery 50% ostial stenosis, remaining vessels 30% to 50% stenosis, mid right coronary artery 30% stenosis. A decision was made to intervene on the left anterior descending artery. The patient received intravenous Angiomax for anticoagulation along with oral Effient and aspirin. The left main was cannulated using an XB 3.5, 6-Danish guiding catheter. A short wire was advanced across the left anterior descending artery for support. A single 2.25 x 24 mm [employer] Synergy stent was deployed at 14 atmospheres. Excellent end result, less than 10% residual stenosis, CAROL-3 flow. No complications. Right groin arterial sheath incision was repaired using Mynx closure device and the sheath was removed under manual pressure. The patient discharged home same day. Gage Bonilla MD KSB/MODL /[id number]
== END | disposition home or self-care (01) ==
LOC: CATH LAB 10:32
PROVIDERS: ATTEND Internal Medicine Interventional Cardiology
DX: I25.10 Atherosclerotic heart disease of native coronary artery without angina pectoris (principal); J45.909 Unspecified asthma, uncomplicated; E10.9 Type 1 diabetes mellitus without complications; I10 Essential (primary) hypertension; F31.89 Other bipolar disorder; Z01.812 Encounter for preprocedural laboratory examination; Z79.82 Long term (current) use of aspirin; Z79.4 Long term (current) use of insulin; Z86.19 Personal history of other infectious and parasitic diseases; Z82.49 Family history of ischemic heart disease and other diseases of the circulatory system
CPT/HCPCS: 36415; 80053; 85025; 92928; 93454; C1725; C1766; C1769 ×3; C1874 ×2; C1887; J0583; J2001; J2250; J2270; J3010; J7030; Q9967; J1644

== ENCOUNTER → 2019-08-09 | Outpatient (CLI) | payer BC, MEDICARE ==
[~2019-08-09] MED LIST changes: -ALPRAZOLAM 0.5 MG TAB ONE; -ASPIRIN 325 MG TAB ONE; -BIVALRIUDIN 250 MG/VIAL VIAL IV ONE; -DIPHENHYDRAMINE HCL 25 MG CAP ONE; -FENTANYL CITRATE/PF 100MCG/2 ML INJ ONE; -HEPARIN SOD (PORCINE) 1000 UNIT/ML 30ML ONE; -HEPARIN SOD/SOD CHLORIDE 2,000 ML ONE; -IOPAMIDOL 370 MG/ML 200 ML INFUS..BTL INJ ONE; -LIDOCAINE HCL 2% LOCAL 20 ML VIAL ONE; -MIDAZOLAM HCL 2 MG/2 ML VIAL ONE; -MORPHINE SULFATE INJ 4 MG/ML INJ 1ML ONE; -PRASUGREL 10 MG TAB ONE; -SODIUM CHLORIDE 0.9% 1000ML 1,000 ML ONE; -SODIUM CHLORIDE 0.9% 50ML 50 ML ONE; -VERAPAMIL HCL 2.5 MG/ML 2 ML VIAL ONE
--- NOTE | 2019-08-09 14:48 | Diagnostic Imaging Report ---
HISTORY : Cirrhosis COMPARISON : 01/03/2012 COMMENT : Complete ultrasound examination of the abdomen was performed. The liver is normal in size measuring 12 cm in length along the right midclavicular line and heterogeneous in echo-texture without evidence of a focal mass. The gallbladder is surgically absent.. The biliary tract is within normal limits with the common bile duct measuring 5 mm in maximum diameter. The visualized portions of the pancreas are within normal limits. The spleen is normal in size and echo-texture measuring 12.0 cm. The right kidney measures 10.5 cm and the left kidney 10.7 cm in maximum size. There is a 2.8 x 1.4 x 2.4 cm cyst arising from the lower pole of the left kidney. The portal vein measures to a maximum of 0.8 cm in diameter. There is no ascites or pleural effusion. The visualized inferior vena cava, hepatic veins and abdominal aorta are within normal limits. IMPRESSION : 1. Cirrhotic morphology of the liver. No focal hepatic mass. 2. Status post cholecystectomy. 3. Left renal cyst. Signed by: Hany Gaitan MD on 08/09/2019 2:45 PM
== END ==
LOC: US 12:42
PROVIDERS: ATTEND Internal Medicine Gastroenterology
DX: K70.30 Alcoholic cirrhosis of liver without ascites (principal); B19.21 Unspecified viral hepatitis C with hepatic coma
CPT/HCPCS: 76700

== ENCOUNTER 2019-12-15 07:34 | Inpatient (IN) | payer BC, MEDICARE, OTHER ==
[2019-12-15] VITALS (13 sets, daily range): BP systolic 117–157; BP diastolic 70–95
[~2019-12-15] VITALS: Ht 162.6 cm; Wt 74.0 kg
[2019-12-15 07:56] LABS: BASOPHILS # (AUTO) 0.1 (0.0-0.1); BASOPHILS % 0.2 % (0.0-1.0); EOSINOPHILS # (AUTO) 0.4 (0.0-0.4); EOSINOPHILS % 1.7 % (0.0-6.0); HEMATOCRIT 28.2 % (34.2-44.1); HEMOGLOBIN 8.8 g/dL (12.0-16.0); LYMPHOCYTES # (AUTO) 1.5 (1.0-3.2); LYMPHOCYTES % 6.7 % (18.0-39.1); MEAN CORPUSCULAR HEMOGLOBIN 26.7 pg (28-32); MEAN CORPUSCULAR HGB CONC 31.2 g/dL (31-35); MEAN CORPUSCULAR VOLUME 85.7 fL (81-99); MONOCYTES # (AUTO) 0.7 (0.2-0.8); MONOCYTES % 3.1 % (4.4-11.3); NEUTROPHILS # (AUTO) 19.3 (2.1-6.9); NEUTROPHILS % 87.1 % (38.7-80.0); PLATELET COUNT 358 x10e3/uL (140-360); RED BLOOD COUNT 3.29 x10e6/uL (3.6-5.1); RED CELL DISTRIBUTION WIDTH 15.9 % (11.7-14.4)
[2019-12-15] MEDS ORDERED: CEFEPIME HCL 1 GM VIAL IV STA (08:06)
[2019-12-15 08:10] LABS: INR 1.23; PROTHROMBIN TIME 16.3 seconds (11.9-14.5)
[2019-12-15 08:11] LABS: PARTIAL THROMBOPLASTIN TIME 42.4 seconds (23.8-35.5)
[2019-12-15 08:17] LABS: ALANINE AMINOTRANSFERASE 15 IU/L (0-55); ALBUMIN 1.6 g/dL (3.5-5.0); ALBUMIN/GLOBULIN RATIO 0.3 (0.8-2.0); ALKALINE PHOSPHATASE 394 IU/L (40-150); ANION GAP 13.4 mmol/L (8-16); BLOOD UREA NITROGEN 38 mg/dL (7-26); BUN/CREATININE RATIO 33 (6-25); CALCIUM 7.6 mg/dL (8.4-10.2); CARBON DIOXIDE 22 mmol/L (22-29); CHLORIDE 108 mmol/L (98-107); CREATINE KINASE 24 IU/L (29-168); CREATININE, SERUM 1.16 mg/dL (0.57-1.11); EST GLOMERULAR FILTRATION RATE 49 ML/MIN (60-); GLUCOSE 151 mg/dL (74-118); POTASSIUM 5.4 mmol/L (3.5-5.1); SODIUM 138 mmol/L (136-145)
[2019-12-15] MEDS ORDERED: VANCOMYCIN 1GM/NS 250 ML 250 ML IV ONE (09:00)
--- NOTE | 2019-12-15 09:10 | NUR ---
Pt had small liquid stool, straight cath performed, noted copius amounts of white /santiago matter in vaginal area and between legs. Pt has erythema to bilateral inner thighs, pt reports she has not been cleaned in perineal area in over two weeks. Yellow urine obtained and sent to lab.
[2019-12-15 09:14] LABS: CLARITY,URINE CLEAR (CLEAR); COLOR,URINE YELLOW (YELLOW); KETONES,URINE NEGATIVE (NEGATIVE); LEUKOCYTE ESTERASE ,URINE NEGATIVE (NEGATIVE); NITRITE,URINE NEGATIVE (NEGATIVE); PROTEIN,URINE DIPSTICK 1+ (NEGATIVE)
[2019-12-15 09:15] LABS: BILIRUBIN,URINE NEGATIVE (NEGATIVE); URINE UROBILINOGEN 0.2 mg/dL (0.2 - 1)
[2019-12-15 09:24] LABS: AMORPHOUS SEDIMENT,URINE FEW (FEW); BACTERIA,URINE RARE /HPF; EPITHELIAL CELLS,URINE FEW /LPF
--- NOTE | 2019-12-15 09:25 | Diagnostic Imaging Report ---
Examination: Single AP view of the chest. COMPARISON: 08/09/2017 INDICATION: Chest pain DISCUSSION: Small bilateral pleural effusions right larger than left with adjacent lower lobe opacities, likely atelectasis. Normal heart size with prominence of the central pulmonary vasculature. No acute osseous abnormalities. IMPRESSION: Pulmonary venous congestion with small bilateral pleural effusions and bilateral lower lobe opacities, likely atelectasis. Signed by: Dr. Benny Schultz M.D. on 12/15/2019 9:22 AM
--- NOTE | 2019-12-15 10:00 | NUR ---
Awaiting Picc team, pt in no acute distress. Spoke with pts mother, contact luis Sorensen [phone] Addendum: 12/15/19 at 1346 by RUTH ANN Patients mother name is Lisette [phone]. Pt requests that information to be given to update patients mom
[2019-12-15] MEDS ORDERED: FUROSEMIDE INJ 10 MG/ML 2 ML VIAL IV STA (10:49)
[2019-12-15] MEDS ORDERED: LEVOFLOXACIN 750MG/D5W 150ML 150 ML IV STA (10:49)
--- NOTE | 2019-12-15 11:01 | Diagnostic Imaging Report ---
Examination: CT BRAIN WO CONTRAST History:Fall 2 days ago with head injury Comparison studies:None Technique: Axial images were obtained from the skull base to the vertex. Coronal and sagittal images reconstructed from the axial data. Dose modulation, iterative reconstruction, and/or weight based adjustment of the mA/kV was utilized to reduce the radiation dose to as low as reasonably achievable. Intravenous contrast: None Findings: Scalp: No abnormalities. Bones: No fractures, blastic or lytic lesions. Brain sulci: Generalized volume loss for age. Ventricles: No hydrocephalus. Extra-axial space: No abnormalities. Parenchyma: No masses, hemorrhage, or acute or chronic cortical based vascular insults.. Sellar/suprasellar region: No abnormalities. Craniocervical junction: Patent foramen magnum. No Chiari one malformation. Incidental findings: None. Impression: No acute intracranial abnormalities. Generalized volume loss for age. Signed by: Dr. Leslie Goetz M.D. on 12/15/2019 10:57 AM
--- NOTE | 2019-12-15 11:08 | Diagnostic Imaging Report ---
Examination: CT Face without Contrast History:Fall with face injury. Comparison studies: None Technique: Axial images were obtained through the maxillofacial region. Coronal and sagittal reconstructions obtained from the axial data. Dose modulation, iterative reconstruction, and/or weight based adjustment of the mA/kV was utilized to reduce the radiation dose to as low as reasonably achievable. Intravenous contrast: None Findings: Soft tissues: No abnormalities. Bones: No acute fractures or bony abnormalities. Chronic left orbital floor fracture with wide open fracture and smooth fragment. The left inferior rectus muscle is rounded in morphology and is mildly displaced into the fracture site. Orbits: Globes: Intact Extra or intraconal abnormalities: None. Paranasal sinuses: Clear. Nasal cavity: Patent. Rightward septal deviation. IMPRESSION: 1. No acute facial abnormality. 2. Chronic left orbital floor fracture with mild inferior displacement of the left inferior rectus muscle mild as detailed. Nonemergent opthalmology consult is suggested. Signed by: Dr. Leslie Goetz M.D. on 12/15/2019 11:05 AM
--- NOTE | 2019-12-15 11:16 | Diagnostic Imaging Report ---
Examination: CT CERVICAL SPINE WO CONTRAST HISTORY:Neck pain and injury after fall. COMPARISON:None. TECHNIQUE: Multidetector helical axial images were obtained without contrast from the foramen magnum to T1. Coronal and sagittal reformatted images were done. Bone and soft tissue windows were evaluated. Dose modulation, iterative reconstruction, and/or weight based adjustment of the mA/kV was utilized to reduce the radiation dose to as low as reasonably achievable. FINDINGS: Alignment:Normal alignment and lordosis. Vertebrae: Normal height and density. No acute fracture or neoplasm. Anterior osteophytes from C2 through C7. Disc space heights: Severely narrowed at C5-C6 and C6-C7 with chronic endplate irregularity at C6-C7 which could be from degenerative change or prior infection. Caliber of spinal canal: Developmentally normal. Posterior fossa and craniocervical junction: Foramen magnum patent. No Chiari 1 malformation. Soft tissues: No abnormality. Degenerative changes: Diffuse disc osteophyte at C5-C6 causes mild bilateral foraminal narrowing. Asymmetric to the left disc osteophyte at C6-C7 with moderate left foraminal narrowing. No right foraminal narrowing. The remaining levels demonstrate no disc herniation or canal stenosis. Visualized lung apices: No abnormalities. IMPRESSION: 1. No acute abnormalities. 2. Degenerative change as above. Signed by: Dr. Leslie Goetz M.D. on 12/15/2019 11:12 AM
[2019-12-15] MEDS ORDERED: SODIUM CHLORIDE 0.9% 50ML 50 ML ONE (11:37)
[2019-12-15] MEDS ORDERED: IOPAMIDOL 370 MG/ML 200 ML INFUS..BTL INJ ONE (11:38)
[2019-12-15] MEDS ORDERED: ONDANSETRON HCL INJ 2MG/ML 2ML 2 MG/ML VIAL IV STA (11:52)
[2019-12-15] MEDS ORDERED: MORPHINE SULFATE INJ 4 MG/ML INJ 1ML IV STA (11:52)
[2019-12-15] MEDS ORDERED: SODIUM CHLORIDE 0.9% 500ML 500 ML IV STA (12:17)
--- NOTE | 2019-12-15 12:20 | Diagnostic Imaging Report ---
EXAMINATION: CHEST XRAY LINE PLACEMENT INDICATION: Line placement COMPARISON: Chest radiograph 12/15/2019 FINDINGS: LINES/TUBES:Right PICC line terminates in the superior vena cava. EKG leads overlie the chest. LUNGS:The lungs are moderately inflated. Right basilar opacity silhouettes the right hemidiaphragm. There is perihilar fullness and indistinctness of the pulmonary vasculature. PLEURA:Unchanged right pleural effusion. Small left pleural effusion. MEDIASTINUM:The cardiomediastinal silhouette appears normal in size and shape. BONES/SOFT TISSUES:No acute osseous injury. ABDOMEN:No free air under the diaphragm. IMPRESSION: Unchanged mild pulmonary edema and bilateral pleural effusions. Right basilar opacity, most likely subsegmental atelectasis. Signed by: Gaudencio Kenny MD on 12/15/2019 12:16 PM
[2019-12-15] MEDS ORDERED: ACETAMINOPHEN 325 MG TAB PO STA (12:29)
[2019-12-15] MEDS ORDERED: FAMOTIDINE 20 MG/2 ML VIAL IV ONE (12:30)
[2019-12-15] MEDS ORDERED: DIPHENHYDRAMINE HCL INJ 50 MG/ML VIAL IV ONE (12:30)
[2019-12-15] MEDS ORDERED: DEXAMETHASONE SOD PHOS 10 MG/1 ML VIAL IV ONE (12:30)
[2019-12-15] MEDS ORDERED: SODIUM CHLORIDE 0.9% 250ML 250 ML IV ONE (12:30)
[2019-12-15] MEDS ORDERED: ALBUMIN 25% 12.5GM 0.25 GM/ML BTL IV STA (12:42)
--- NOTE | 2019-12-15 12:47 | NUR ---
Picc line placed to VEGA, blood cultures drawn, lactic acid obtained.
--- NOTE | 2019-12-15 13:49 | Diagnostic Imaging Report ---
EXAM: CTA Abdomen and Pelvis WITHOUT and WITH intravenous contrast - GI bleed protocol INDICATION: Abdominal pain, GI bleeding COMPARISON: None. TECHNIQUE: Abdomen and pelvis were scanned utilizing a multidetector helical scanner from the lung base to the pubic symphysis before and after administration of IV contrast. Coronal and sagittal reformations were obtained. GI bleed protocol was used. Scan was performed prior to contrast administration and then during arterial and venous delay phases. IV CONTRAST: 100 mL of Isovue 370 ORAL CONTRAST: Water COMPLICATIONS: None RADIATION DOSE: Total DLP: 2867 mGy*cm Dose modulation, iterative reconstruction, and/or weight based adjustment of the mA/kV was utilized to reduce the radiation dose to as low as reasonably achievable. FINDINGS: LOWER THORAX: Right and left lower lobe dependent subsegmental atelectasis. Moderate bilateral pleural effusions. HEPATOBILIARY: Diffuse hepatic steatosis. No focal liver lesion. No biliary ductal dilation. Status post cholecystectomy. SPLEEN: Mild splenomegaly to 14 cm. PANCREAS: No focal masses or ductal dilatation. ADRENALS: Low-attenuation 1.8 cm right adrenal nodule, likely a benign adenoma. KIDNEYS/URETERS: No hydronephrosis or renal calculi. Bilateral subcentimeter simple renal cysts. PELVIC ORGANS/BLADDER: Status post hysterectomy. PERITONEUM / RETROPERITONEUM: No free air or fluid. LYMPH NODES: No lymphadenopathy. VESSELS: No evidence of active arterial extravasation of contrast in the bowel. Moderate atherosclerotic calcifications of the nonaneurysmal abdominal aorta and major branches. No abdominal aortic aneurysm. The mesenteric vessels are widely patent. Single right and single left renal arteries are patent. GI TRACT: No abnormal bowel thickening. No bowel obstruction. BONES AND SOFT TISSUES: No acute osseous injury. Chronic L2 and L3 compression fractures. No suspicious lytic or blastic lesions. IMPRESSION: No evidence of active arterial gastrointestinal bleeding. Diffuse hepatic steatosis. Splenomegaly. Signed by: Gaudencio Kenny MD on 12/15/2019 1:46 PM
--- NOTE | 2019-12-15 13:50 | NUR ---
Nursing report given to Kaia MCKEON.
--- NOTE | 2019-12-15 13:55 | Diagnostic Imaging Report ---
EXAM: CT Chest WITH contrast- Pulmonary Embolism Protocol INDICATION: Chest pain, DVT COMPARISON: CTA abdomen and pelvis of the same day. TECHNIQUE: Chest was scanned utilizing a multidetector helical scanner from the lung apex through the level of the diaphragm after administration of IV contrast. Thin section reconstructions were obtained with special concentration on the pulmonary arteries. Coronal and sagittal reformations were obtained. Pulmonary embolism protocol was performed. IV CONTRAST: 100 cc of Isovue 370 RADIATION DOSE: Total DLP: 2867 mGy*cm Dose modulation, iterative reconstruction, and/or weight based adjustment of the mA/kV was utilized to reduce the radiation dose to as low as reasonably achievable. COMPLICATIONS: None FINDINGS: LINES/ TUBES: None. PULMONARY ARTERIES: No filling defect is identified within the pulmonary arteries to the segmental level. The subsegmental pulmonary arteries are not well opacified. Main pulmonary artery measures 2.6 cm in diameter. LUNGS AND AIRWAYS: The central airways are patent. Dependent bibasilar lower lobe opacities most compatible with subsegmental atelectasis. Mild smooth interlobular septal thickening consistent with pulmonary interstitial edema. No focal pneumonia. PLEURA: Moderate bilateral pleural effusions. No pneumothorax. HEART AND MEDIASTINUM: The thyroid gland is normal. No mediastinal, hilar or axillary lymphadenopathy. The heart is normal in size. No right heart strain. There is no pericardial effusion. Atherosclerotic calcifications involve the LAD, circumflex, and thoracic aorta.. UPPER ABDOMEN: Please see the separate dictation for the concurrently performed abdomen and pelvis CT for a detailed discussion of intra-abdominal findings. BONES: No acute osseous injury. No suspicious lytic or blastic lesions. SOFT TISSUES: Unremarkable. IMPRESSION: No pulmonary embolism. Mild pulmonary interstitial edema. Moderate bilateral pleural effusions. Bibasilar dependent subsegmental atelectasis. Signed by: Gaudencio Kenny MD on 12/15/2019 1:51 PM
[2019-12-15 14:59] LABS: CREATINE KINASE MB 1.9 ng/mL (0-5.0)
[2019-12-15] MEDS: CEFEPIME 1GM/NS 0.9% 50 ML 50 ML IV ONE ×2 (16:09→19:30)
[2019-12-15] MEDS: ONDANSETRON HCL INJ 2MG/ML 2ML 2 MG/ML VIAL IV PRN ×2 (16:33→21:05)
[2019-12-15] MEDS: MORPHINE SULFATE INJ 4 MG/ML INJ 1ML IV PRN ×2 (16:34→21:05)
[2019-12-15] MEDS ORDERED: DEXTROSE 50% SYRINGE 50 ML IV PRN ×2 (16:45→18:15)
[2019-12-15] MEDS: PREGABALIN 75 MG CAP PO SCH (18:40)
[2019-12-15] MEDS: PIPER-TAZ 3.375 GM 50 ML IV SCH (19:18)
--- NOTE | 2019-12-15 20:40 | Consultation ---
DATE OF CONSULTATION: Pulmonary Critical Care Consultation CHIEF COMPLAINT: Leukocytosis and prior staph infection. HISTORY OF PRESENT ILLNESS: The patient is a 54-year-old woman. She has a history of diabetes and prior liver disease. She also has a history of recurrent MRSA infections. She required a mastectomy for necrotizing fasciitis of the breast. She has also required amputation of her right hand. She also required admission to [facility] in 2018 because of an infection in the vulva secondary to MRSA. Apparently, she was hospitalized at [facility] for infection in her legs and was released several days ago. After arriving home she fell and injured her nose and right eye. She also noticed increasing malaise and fatigue. She came to the emergency department and was found to have a profound leukocytosis of 22. She also had a wound on the bottom of her left foot with some yellow exudate. PAST SURGICAL HISTORY: 1. Status post mastectomy for necrotizing fasciitis. 2. 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 3. Status post I and D of the vulva because of MRSA. 4. Prior laparoscopic cholecystectomy. 5. Right salpingo-oophorectomy. 6. Prior ureteral stent. PAST MEDICAL HISTORY: 1. History of coronary artery disease and congestive heart failure. The patient is followed by Dr. Gage Bonilla. 2. History of diabetes with peripheral neuropathy. 3. History of hepatitis C. 4. History of hypertension. SOCIAL HISTORY: The patient does not smoke. She is not drinking at this time although she was a drinker prior to 2009. FAMILY HISTORY: There is a family history of type 2 diabetes. REVIEW OF SYSTEMS: The patient denies any fever. She is not having any headache. She has no neck pain. She is not having any chest pain. She does not complain of dyspnea or cough. She has no abdominal pain. She has no nausea or vomiting. She does have some pain in her left foot. She has no focal neurological complaints. PHYSICAL EXAMINATION: VITAL SIGNS: The patient is afebrile. The blood pressure is 148/83, saturation is 98% and the pulse is 86, respiratory rate is 18. HEENT: No facial swelling or erythema. LYMPHATIC: No submandibular, cervical, or supraclavicular adenopathy. CARDIAC: Regular rate and rhythm with normal S1, S2. There are no murmurs or rubs. LUNGS: Auscultation of the lungs shows decreased breath sounds at the bases. There is no wheezing. ABDOMEN: Soft, nontender. EXTREMITIES: There is a right below elbow amputation of the right upper extremity. Examination of the left foot shows complete absence of the plantar surface of the foot. There is a yellowish exudate on the underlying soft tissue. LABORATORY DATA: White blood cell count is 22.1 and hemoglobin is 8.8. The platelet count is 358,00. The BUN to creatinine ratio is 38 to 1.16. The glucose is 151. The carbon dioxide is 22. Potassium is 5.4 and chloride is 108. BNP is 758. Albumin is 1.6. PT is 16.3 and PTT is 42.4. Urinalysis shows no red cells or leukocytes. There were 10-20 white blood cells. RADIOGRAPHIC DATA: CT scan of the face shows a subacute inferior-orbital fracture on the left side. CT scan of the chest shows bilateral pleural effusions with some associated atelectasis. CT scan of the neck shows no acute changes. CT scan of the brain shows no acute intracranial abnormalities. IMPRESSION: 1. Cellulitis and possible osteomyelitis of the left foot with sepsis, present on admission. 2. History of prior MRSA infections. 3. History of hepatitis C and prior liver disease. 4. History of prior congestive heart failure. 5. Acute kidney injury. 6. Hyperkalemia. PLAN: 1. IV antibiotics to cover for methicillin-resistant Staph aureus and other possible causes of cellulitis and osteomyelitis. 2. Wound care with Podiatry consultation. The patient was being taken care by Dr. Kevon Vaz previously. 3. Judicious use of Lasix. 4. Echocardiogram. The patient was seen by Dr. Gage Bonilla previously. 5. Continue to monitor renal function and electrolytes. 6. Continue to monitor blood counts. 7. Contact isolation. 8. Case discussed with nursing staff, ER and the patient. Waldo Strange MD [facility]/JAVIERL /[id number]
[2019-12-15] MEDS ORDERED: INSULIN REGULAR, HUMAN 100 UNIT/1 ML 3ML VIAL SQ SCH (21:00)
[2019-12-15] MEDS: QUETIAPINE FUMARATE 25 MG TAB PO SCH (21:00)
[2019-12-15 21:24] LABS: CREATINE KINASE MB 1.7 ng/mL (0-5.0)
--- NOTE | 2019-12-15 21:41 | History and Physical ---
CHIEF COMPLAINT: Increasing shortness of breath, left foot worsening wound, open wound infection, redness, leg pain, and chest pain. HISTORY OF PRESENT ILLNESS: The patient is a 54-year-old female with extensive chronic medical problem, was admitted at the [facility] and stayed there for the past 2 weeks. She was discharged on Friday, came here today, Friday. The patient is having increasing chest discomfort, pain, shortness of breath. The patient had potassium level of 5.4, BUN and creatinine of 38 and 1.6, but more importantly, the patient has a left open foot wound, that has previous debridement with Dr. Kevon Vaz, Podiatry at [facility]. He does not come here, therefore another galvanizer will be seeing the patient, but in the meantime, her left foot seem to have redness and wound, may need debridement and further IV antibiotics. They both are swollen, left foot more than the right. She does have DVT to the left foot. She was on anticoagulant therapy. The patient came in here because of increasing shortness of breath. She had multiple imaging done in the emergency room. She had a right upper arm PICC line. She had abdomen and pelvis CT, brain CT, cervical spine CT, face CT, chest CT. Chest x-rays, there is no pulmonary embolism. There is no new finding. The patient will be admitted for continue with management. She will need cardiac workup due to her 2 stents previously done by Dr. Bonilla, that was back in May 2019, where the patient had left cardiac catheterization and stent placement to the proximal and the mid anterior descending artery. PAST MEDICAL HISTORY: Coronary disease with 2 stents, proximal and mid left anterior descending artery. Coronary artery disease back in May 2019. She had a right arm amputation due to necrotizing fasciitis and left breast mastectomy due to infection as well. Cholecystectomy, hysterectomy, appendectomy. Left foot recent debridement due to infection and diabetic foot ulcer. The patient has diabetes. She is on insulin therapy. Diabetes type 2, hypertension, peripheral vascular disease, coronary artery disease as mentioned above, surgical intervention as mentioned above. SOCIAL HISTORY: The patient does not smoke. She lives with her fiance. ALLERGIES: TO ACETAMINOPHEN AND HYDROCODONE. HOME MEDICATIONS: Aspirin, Levemir, metoprolol succinate, Lyrica, Seroquel, and Effexor XR. PHYSICAL EXAMINATION: VITAL SIGNS: Temperature is 98, blood pressure 140/83, pulse rate 86, respirations 19. GENERAL: The patient is uncomfortable. She is not in distress. HEENT: Normocephalic and atraumatic. Anicteric. NECK: Supple grossly. PULMONARY: Diminished breath sounds bilaterally without any wheezing or rales. CARDIOVASCULAR: S1 and S2. Regular rate and rhythm. CHEST: Left mastectomy. ABDOMEN: Soft, nondistention. EXTREMITIES: Right arm [id number] amputation of the forearm. Right PICC line. Left foot with plantar surface significant debridement with open wound, some necrotic redness tissue. There is 1+ edema. There is redness along the left lower extremity [id number] area. Right lower extremity is positive for edema. NEUROLOGIC: No focal deficit except for severe neuropathy, which may be contributed to the patient's left foot wound. LABORATORY DATA: Sodium is 138, potassium 5.4, chloride 108, bicarb 22, BUN 38, creatinine 1.16, glucose 151. Lactic acid is 0.8, which is normal. AST and ALT are 36 and 15, alkaline phosphate 394. BNP is 758. WBC 22.1, hemoglobin 8.8, hematocrit 28.2, and platelet is 358. The patient has a left shift of 87%. IMPRESSION: 1. Left foot cellulitis, open wound, open infected diabetic foot ulcer, status post multiple debridements, previously at [facility], where the patient hospitalized for 2 weeks and she was discharged 3 days ago. 2. History of left lower extremity deep venous thrombosis. 3. History of coronary artery disease with previous stents as mentioned above. 4. Diabetes type 2, on insulin. 5. Major depression and anxiety disorder. 6. Ambulatory dysfunction secondary to the wound. 7. Medical debility. PLAN: The patient is admitted to the ICU for close monitoring. CT scan of the chest, there is no PE. The patient may have vascular congestion, may need furosemide for fluid overload, which may contribute to the patient's shortness of breath. Continue with treatment and IV antibiotics. The patient is anemic. Fecal for occult blood negative, although the patient is anemic. This could be secondary to chronic anemia, iron deficiency. B12 and folic acid need to be ruled out on causing the anemia. I will consult Dr. Dumont, Podiatry; Dr. Feldman for Infectious Disease. Place the patient on antibiotics and IV Lasix. Resume some home medication. Insulin sliding scale coverage. Tight control of blood sugar. Echocardiogram and Dr. Gage Bonilla will also be consulted, who is the patient's electroencephalograph technician. MD AAMIR Palacios/MODL /[id number]
[2019-12-15] MEDS ORDERED: CEFEPIME 1GM/NS 0.9% 50 ML 50 ML IV SCH (22:00)
[2019-12-15] MEDS: INSULIN GLARGINE 100 UNITS/ML VIAL SC SCH (22:23)
[2019-12-15] MEDS: INSULIN LISPRO 100 UNIT/1 ML 3ML VIAL SQ SCH (22:24)
[2019-12-16] VITALS (16 sets, daily range): BP systolic 111–140; BP diastolic 61–101
[2019-12-16] MEDS: PIPER-TAZ 3.375 GM 50 ML IV SCH ×4 (00:07→18:27)
[2019-12-16] MEDS: MORPHINE SULFATE INJ 4 MG/ML INJ 1ML IV PRN ×5 (04:10→22:08)
[2019-12-16] MEDS: ONDANSETRON HCL INJ 2MG/ML 2ML 2 MG/ML VIAL IV PRN ×3 (04:10→22:07)
[2019-12-16 05:33] LABS: BASOPHILS % 0.2 % (0.0-1.0); EOSINOPHILS # (AUTO) 0.5 (0.0-0.4); EOSINOPHILS % 3.5 % (0.0-6.0); HEMATOCRIT 23.9 % (34.2-44.1); LYMPHOCYTES # (AUTO) 1.7 (1.0-3.2); LYMPHOCYTES % 11.7 % (18.0-39.1); MEAN CORPUSCULAR HEMOGLOBIN 27.2 pg (28-32); MEAN CORPUSCULAR HGB CONC 32.2 g/dL (31-35); MEAN CORPUSCULAR VOLUME 84.5 fL (81-99); MONOCYTES # (AUTO) 0.7 (0.2-0.8); MONOCYTES % 4.9 % (4.4-11.3); NEUTROPHILS # (AUTO) 11.4 (2.1-6.9); PLATELET COUNT 392 x10e3/uL (140-360); RED BLOOD COUNT 2.83 x10e6/uL (3.6-5.1); RED CELL DISTRIBUTION WIDTH 15.8 % (11.7-14.4)
[2019-12-16 05:47] LABS: HEMOGLOBIN 7.7 g/dL (12.0-16.0)
[2019-12-16 05:53] LABS: ALBUMIN 1.5 g/dL (3.5-5.0); ALBUMIN/GLOBULIN RATIO 0.3 (0.8-2.0); ANION GAP 10.4 mmol/L (8-16); CALCIUM 7.6 mg/dL (8.4-10.2); CREATININE, SERUM 1.07 mg/dL (0.57-1.11); POTASSIUM 5.4 mmol/L (3.5-5.1)
[2019-12-16 05:56] LABS: CREATINE KINASE MB 1.1 ng/mL (0-5.0)
[2019-12-16 06:11] LABS: MAGNESIUM 1.7 MG/DL (1.3-2.1); PHOSPHORUS 4.5 MG/DL (2.3-4.7)
[2019-12-16 06:32] LABS: THYROID STIMULATING HORMONE 2.736 uIU/mL (0.350-4.940)
[2019-12-16] MEDS: INSULIN LISPRO 100 UNIT/1 ML 3ML VIAL SQ SCH ×4 (07:30→21:00)
[2019-12-16] MEDS: ASPIRIN 81 MG CHEW TAB PO SCH (08:28)
[2019-12-16] MEDS: VANCOMYCIN 1GM/NS 250 ML 250 ML IV SCH (08:31)
[2019-12-16] MEDS: METOPROLOL SUCCINATE 50 MG TAB XL PO SCH (08:31)
[2019-12-16] MEDS: VENLAFAXINE HCL 75 MG CAPCR PO SCH (08:31)
[2019-12-16] MEDS: PREGABALIN 75 MG CAP PO SCH ×2 (08:31→17:46)
[2019-12-16] MEDS: COLLAGENASE 5 GM TUBE TOP SCH (09:40)
--- NOTE | 2019-12-16 11:23 | NUR ---
CONSULTATION Apparently, she was hospitalized at [facility] for infection in her legs and was released several days ago. After arriving home she fell and injured her nose and right eye. She also noticed increasing malaise and fatigue. She came to the emergency department and was found to have a profound leukocytosis of 22. She also had a wound on the bottom of her left foot with some yellow exudate. PAST SURGICAL HISTORY: 1. Status post mastectomy for necrotizing fasciitis. 2. Status post right below elbow amputation because of MR sahara in 2015. 3. Status post I and D of the vulva because of MRSA. 4. Prior laparoscopic cholecystectomy. 5. Right salpingo-oophorectomy. 6. Prior ureteral stent. PAST MEDICAL HISTORY: 1. History of coronary artery disease and congestive heart failure. The patient is followed by Dr. Gage Bonilla. 2. History of diabetes with peripheral neuropathy. 3. History of hepatitis C. 4. History of hypertension. SOCIAL HISTORY: The patient does not smoke. She is not drinking at this time although she was a drinker prior to 2009. FAMILY HISTORY: There is a family history of type 2 diabetes. [id number]
--- NOTE | 2019-12-16 11:30 | NUR ---
Handoff report and bedside report to nurse, LINDA Schaefer made aware patient needs 2 units of PRBC's, and non-weight bearing to left foot orders from Dr. Buster Dumont (podiatry).
--- NOTE | 2019-12-16 12:18 | Consultation ---
DATE OF CONSULTATION: 12/16/2019 Cardiology consultation REQUESTING PHYSICIAN: Jose Elias Shirley MD. REASON FOR CONSULTATION: Coronary artery disease. HISTORY OF PRESENT ILLNESS: This is a 54-year-old woman with history of coronary artery disease, status post LAD PCI on May 04, [address] Gage Bonilla, diabetes mellitus, hypertension, and hepatitis C, who presents with complaints of chest pain and shortness of breath. The patient reports she recently traveled to [place] and [place]. While there, she was diagnosed with per her description a left lower extremity DVT. Upon returning to [place], she was recently admitted at [facility] and was discharged home on Friday. She states after she was discharged, she suffered a fall. She states that she became dizzy while walking into the home and fell striking her face. Friday night, she noted that she began having shortness of breath which has progressively worsened since onset. She began having chest pain Friday, which she described as throbbing, 9/10 in severity without radiation. Of note, she also has a left foot wound which has been present for the last 3 weeks. Due to her symptoms, she presented to the ER for further evaluation. CT chest was done without evidence of pulmonary embolism, but findings were suggestive of pulmonary edema with moderate bilateral pleural effusions. CT of the face did not reveal any acute facial abnormality, but did report chronic left orbital floor fracture with mild inferior displacement of the left inferior rectus muscle. The patient was also noted to have elevated white count of 22.12 and BNP elevated to 759. The patient was therefore admitted for further management. REVIEW OF SYSTEMS: Negative except as per HPI. PAST MEDICAL HISTORY: 1. Coronary artery disease, status post LAD PCI May of 2019. 2. Diabetes mellitus. 3. Hypertension. 4. Peripheral vascular disease. PAST SURGICAL HISTORY: 1. Right arm amputation due to necrotizing fasciitis. 2. Left breast mastectomy due to infection. 3. Cholecystectomy. 4. Hysterectomy. 5. Appendectomy. 6. Left foot debridement. ALLERGIES: PLEASE SEE EMR. MEDICATIONS: Please see medication list. SOCIAL HISTORY: No tobacco or alcohol. FAMILY HISTORY: Noncontributory to current illness. PHYSICAL EXAMINATION: VITAL SIGNS: Temperature 97.7 degrees, pulse 105, respiratory rate 20, blood pressure was 126/89, and oxygen saturation 93% on room air. GENERAL: Awake, alert, in no acute distress, well developed, well nourished. HEENT: Normocephalic, atraumatic. Pupils equal. No scleral icterus. NECK: Supple. No thyromegaly or cervical lymphadenopathy. No carotid bruits. LUNGS: Decreased breath sounds at the bases, otherwise clear to auscultation. No wheezes or crackles. CARDIOVASCULAR: Tachycardic, but regular. No murmur. Normal S1, S2. ABDOMEN: Soft and nontender. EXTREMITIES: Amputation of the right forearm. Left foot with dressing intact. There is 2+ pitting edema in bilateral lower extremities with erythema of the left lower extremity. NEUROLOGIC: Nonfocal exam. LABORATORY DATA: Sodium 137, potassium 5.4, chloride 106, CO2 of 26, BUN 33, and creatinine 1.07. Troponin 0.040. WBC 14.45, hemoglobin 7.7, hematocrit 32.9, and platelets 392. TELEMETRY: Sinus tachycardia, left axis deviation, and right bundle-branch block. IMPRESSION: 1. Cellulitis and possible osteomyelitis of the left foot. 2. Sepsis secondary to above. 3. Coronary artery disease, status post LAD PCI, May 2019. 4. Acute on chronic diastolic heart failure. 5. Diabetes mellitus. 6. Hypertension. 7. History of hepatitis C. 8. Acute kidney injury versus chronic kidney disease. RECOMMENDATIONS: Antibiotics per primary service. The patient has ruled out for myocardial infarction with serial cardiac biomarkers. No further ischemic evaluation is indicated at this time. Echocardiogram with preserved LVEF. Recommend scheduled diuretics. Monitor creatinine closely, replete electrolytes. Wound care per Podiatry. Continue home cardiac medications otherwise including continuation of anti-platelet therapy. The patient should be on aspirin and prasugrel. We will resume prasugrel. Continue aspirin. Also, continue atorvastatin. Resume metoprolol if blood pressure tolerates. Thank you for this consult. We will continue to follow. Albina Clement MD [facility]/MODL /[id number]
[2019-12-16] MEDS ORDERED: ACETAMINOPHEN 325 MG TAB PO PRN (12:45)
--- NOTE | 2019-12-16 12:48 | Consultation ---
DATE OF CONSULTATION: 12/16/2019 REASON FOR CONSULTATION: Left foot wound. HISTORY OF PRESENTING ILLNESS: This is a 54-year-old female with past medical history of type 2 diabetes, peripheral vascular disease, hypertension, coronary artery disease, who was admitted to the emergency room two days ago with worsening chest pain and shortness of breath. She was previously admitted at [facility] for two weeks, was discharged on Friday and then started having symptoms and admitted here on Friday. The reason podiatry is being consulted is for a left foot wound. The patient was previously being seen by Dr. Kevon Vaz where wound debridements were performed. The most recent one was approximately one week ago. She has bilateral lower extremity swelling and DVT to the left lower extremity and was started on anticoagulation. Also, a CT scan was performed which reveals no evidence of pulmonary embolism. The patient relates some moderate pain to the left foot. Currently relates to no nausea but still has some chest pain and shortness of breath. PAST MEDICAL HISTORY: 1. Type 2 diabetes. 2. Peripheral neuropathy. 3. Peripheral vascular disease. 4. Coronary artery disease. PAST SURGICAL HISTORY: Coronary artery stenting, right arm amputation, left mastectomy, cholecystectomy, hysterectomy, and appendectomy. SOCIAL HISTORY: Denies smoking, denies drinking, and illicit drug usage. ALLERGIES: ACETAMINOPHEN AND HYDROCODONE. HOME MEDICATIONS: Per the chart. PHYSICAL EXAMINATION: GENERAL: The patient is alert and oriented x3, and in no apparent distress. VITAL SIGNS: Today temperature is 97.7, heart rate is 85, respiratory rate is 14, blood pressure 113/67, and pulse ox is 95% on room air. PROBLEM FOCUSED LOWER EXTREMITY PHYSICAL EXAM: Vascular, dorsalis pedis and posterior tibial pulses are faintly palpable. Capillary refill time is approximately 4 to 5 seconds to all digits of the left lower extremity. Erythema, edema, and warmth are noted to the left foot extending to the anterior aspect of the patient's left leg. Right foot pulses are palpable at 1/4. Negative erythema, edema, or warmth is noted to the right lower extremity. NEUROLOGICAL: Sensation is diminished to light touch, however, pain on palpation is felt to the patient's left foot wound. MUSCULOSKELETAL: Right arm amputation. Otherwise, deferred at this time with no gross deformities to bilateral feet. Dermatological a large open ulceration is noted to the plantar aspect of the patient's left foot extending from the level of the metatarsal heads to the posterior aspect of the heel and encompassing the entire foot from medial to lateral. The wound is approximately 80% fibrotic, 10% necrotic, and 10% granular. There is a superficial blister formation to the medial and lateral aspect of the foot. There is extending erythema, edema and warmth to the level of the left lower extremity. The wound does not probe deep to tendon or bone with the entire wound is subcutaneous at a stage 3 level. LABORATORY DATA: White blood cell count is 14.4, down from 22.12, hemoglobin 7.7, hematocrit 23.9, and platelet count 392. Sodium 137, potassium 5.4, chloride 106, BUN 33, creatinine 1.07. Hemoglobin A1c is 10.8. ASSESSMENT: 1. Left foot stage 3 ulceration. 2. Type 2 diabetes peripheral neuropathy. 3. Peripheral vascular disease. 4. Coronary artery disease. 5. Pneumonia. PLAN: The patient was seen and evaluated. Discussed condition and treatment options with the patient in detail. At this time, we will recommend wound care with Santyl, followed by saline wet-to-dry with 4x4s Kerlix and an Miguel wrap. The patient will require further debridement of the left foot ulcerations, which can be planned to do at bedside once patient is transferred to a lower level of care. We will continue IV antibiotics per Infectious Disease. Continue anticoagulation for DVT. The Podiatry Service will continue to monitor as an inpatient. FREDERICK Clark/JESUS /[id number]
[2019-12-16] MEDS ORDERED: SODIUM CHLORIDE 0.9% 250ML 250 ML ONE (13:13)
[2019-12-16] MEDS ORDERED: DIPHENHYDRAMINE HCL INJ 50 MG/ML VIAL ONE (13:17)
[2019-12-16] MEDS ORDERED: FAMOTIDINE 20 MG/2 ML VIAL IV ONE (13:17)
[2019-12-16] MEDS ORDERED: DEXAMETHASONE SOD PHOS INJ 4 MG/ML VIAL ONE (13:17)
--- NOTE | 2019-12-16 13:30 | NUR ---
1ST UNIT PRBC INFUSING. SEE FLOW SHEET FOR DETAILS
--- NOTE | 2019-12-16 13:49 | Consultation ---
DATE OF CONSULTATION: REASON FOR CONSULTATION: Infection of the left foot. HISTORY OF PRESENT ILLNESS: This patient is a 54-year-old white female, who was recently in [facility], she has infection of left foot, underwent debridement by Dr. Vaz. She had MRSA infection, had mastectomy. She had no recurrence of infection of the breast before. She had amputation of her right hand. The patient was recently in [facility] for infection of the foot. She was treated with antibiotic and discharged home. She fell at home, come back with worsening condition of the foot. The patient is currently alert, oriented, lying in bed comfortably. Besides the above, she has no fever, no chills, no nausea, no vomiting, no diarrhea, and no cough. The patient came into the emergency room, where she was admitted. The patient is currently lying in bed comfortably. REVIEW OF SYSTEMS: HEENT: Negative. PULMONARY: Negative. CARDIAC: Negative. LABORATORY DATA: When she first came, white count was 22,000 came down to 14.5, and hemoglobin 7.7. Her sodium was 157, potassium 5.4 with a creatinine of 1.07. BNP was 758. PHYSICAL EXAMINATION: GENERAL: She is currently alert, oriented, does not seem to be in acute distress. VITAL SIGNS: Stable, currently afebrile. HEENT: She is not icteric. NECK: Supple. CHEST: Clear. HEART: S1 and S2. No S3, S4, or murmur. ABDOMEN: Soft. EXTREMITIES: Left foot, there is gangrene in the heel and proximal aspect of the foot. IMPRESSION: Infection of the foot. Agree with vancomycin and agree with Zosyn, adjust for kidney function. Recheck CBC. Recheck Chem panel. Follow vancomycin trough. Podiatry is consulted. We will get the records from [facility] to see if she had MRI and vascular workup. Further recommendations to follow. MD JIGAR Silva/JESUS /[id number]
[2019-12-16] MEDS ORDERED: FUROSEMIDE INJ 10 MG/ML 4 ML VIAL IV NR ×2 (15:00→18:00)
--- NOTE | 2019-12-16 15:38 | NUR ---
1ST UNIT COMPLETED, NO ADVERSE REACTIONS NOTED
--- NOTE | 2019-12-16 19:05 | NUR ---
RECEIVED THE PATIENT IN REPORT.EDUCATED PT ABOUT FALL PRECAUTIONS. PT VERBALIZED UNDERSTANDING. CALL LIGHT WITH IN EASY REACH. INSTRUCTED PT TO USE CALL LIGHT FOR ALL THE NEEDS. BED IS LOW AND LOCKED. SIDE RAILS X2. BED ALARM IS ON. PT DENIES NEEDS AT THIS TIME.
[2019-12-16] MEDS ORDERED: ATORVASTATIN 20 MG TAB PO SCH (21:00)
[2019-12-16] MEDS: INSULIN GLARGINE 100 UNITS/ML VIAL SC SCH (21:40)
[2019-12-16] MEDS: ATORVASTATIN 40 MG TAB PO SCH (21:45)
[2019-12-16] MEDS: MICONAZOLE NITRATE 45 GM CR VG SCH (22:07)
[2019-12-16] MEDS: QUETIAPINE FUMARATE 25 MG TAB PO SCH (22:07)
[2019-12-17] VITALS (7 sets, daily range): BP systolic 106–143; BP diastolic 68–98
[2019-12-17] MEDS: PIPER-TAZ 3.375 GM 50 ML IV SCH ×2 (00:30→06:04)
[2019-12-17 05:38] LABS: BASOPHILS % 0.1 % (0.0-1.0); HEMATOCRIT 32.6 % (34.2-44.1); HEMOGLOBIN 10.7 g/dL (12.0-16.0); LYMPHOCYTES % 4.5 % (18.0-39.1); MEAN CORPUSCULAR HEMOGLOBIN 28.2 pg (28-32); MEAN CORPUSCULAR HGB CONC 32.8 g/dL (31-35); MEAN CORPUSCULAR VOLUME 85.8 fL (81-99); MONOCYTES # (AUTO) 0.2 (0.2-0.8); NEUTROPHILS # (AUTO) 19.9 (2.1-6.9); NEUTROPHILS % 93.5 % (38.7-80.0); PLATELET COUNT 277 x10e3/uL (140-360); RED CELL DISTRIBUTION WIDTH 15.1 % (11.7-14.4)
[2019-12-17] MEDS: ONDANSETRON HCL INJ 2MG/ML 2ML 2 MG/ML VIAL IV PRN ×2 (05:45→12:06)
[2019-12-17] MEDS: MORPHINE SULFATE INJ 4 MG/ML INJ 1ML IV PRN ×2 (05:48→12:06)
[2019-12-17 06:02] LABS: ANION GAP 11.3 mmol/L (8-16); CALCIUM 8.5 mg/dL (8.4-10.2); CREATININE, SERUM 1.36 mg/dL (0.57-1.11); POTASSIUM 5.3 mmol/L (3.5-5.1)
--- NOTE | 2019-12-17 07:00 | NUR ---
stool sent to the lab.Bed side shift report given to oncoming Rn.stable condition.
[2019-12-17] MEDS: INSULIN LISPRO 100 UNIT/1 ML 3ML VIAL SQ SCH ×4 (07:30→21:00)
--- NOTE | 2019-12-17 08:00 | NUR ---
PT ASSESSED IN BED. AWAKE AND ALERT. DRESSING TO LEFT FOOT CLEAN AND DRY. DRESSING TO RIGHT PICC INTACT. FLUSHES WELL. TELEMETRY BOX #12 WITH NORMAL SINUS WITH BUNDLE BRANCH BLOCK HR OF 71. PUREWICK URINE COLLECTION ON PT WITH DARK RADAMES URINE PRESENT. SEE CHART FOR ASSESMENT.
[2019-12-17] MEDS: VANCOMYCIN 1GM/NS 250 ML 250 ML IV SCH (08:43)
[2019-12-17] MEDS: VENLAFAXINE HCL 75 MG CAPCR PO SCH (08:43)
[2019-12-17] MEDS: PREGABALIN 75 MG CAP PO SCH ×2 (08:44→17:28)
[2019-12-17] MEDS: METOPROLOL SUCCINATE 50 MG TAB XL PO SCH (08:44)
[2019-12-17] MEDS: PRASUGREL 10 MG TAB PO SCH (08:44)
[2019-12-17] MEDS: ASPIRIN 81 MG CHEW TAB PO SCH (08:46)
[2019-12-17] MEDS: COLLAGENASE 5 GM TUBE TOP SCH (09:00)
--- NOTE | 2019-12-17 09:42 | Progress Note ---
DATE: SUBJECTIVE: Ms. Jefferson is a pleasant 54-year-old female. She just transferred out from ICU last night, currently comfortable in bed, in no acute distress. Alert and oriented and eating breakfast. Appetite is good. MEDICATIONS: Medication list reviewed. As far as Infectious Disease point of view, the patient is on vancomycin IV and Zosyn. ALLERGIES: CODEINE AND HYDROCODONE. REVIEW OF SYSTEMS: Complained of diarrhea. She had 4 to 5 bowel movements last night and two today and it is only 08:15 the morning. Otherwise, no other complaints besides the fact she is component of infected left foot and there is some pain associated with infected left foot. OBJECTIVE: VITAL SIGNS: Temperature is 95, pulse is 93, respirations 18, and blood pressure 139/82. GENERAL: Alert and oriented x3, very pleasant. CV: S1-S2. CHEST: Equal expansion, clear to auscultation, no acute distress. ABDOMEN: Soft and nontender. No distention. HEENT: Moist. No pallor. No JVD. EXTREMITIES: Left foot fibrotic wound with some necrotic tissue that covers the entire plantar aspect of the left foot with some extension to the sites. LABORATORY STUDIES: White blood cells 21.29, increased from 14.45, hemoglobin 10.7, platelets 277. Sodium 138, potassium 5.3, creatinine 1.36. SEROLOGY: C difficile is pending. MICROBIOLOGY: Blood cultures negative 24 hours from 12/15/2019. RADIOLOGY STUDIES: 12/15/2019, CT of abdomen showed no evidence of active arterial, gastrointestinal bleed. CT scan was done for GI bleed purposes. The patient is status post right upper extremity PICC line placement on 12/14. CT of the head showed no acute intracranial abnormalities on 12/14. ASSESSMENT AND PLAN: 1. Leukocytosis. 2. Diarrhea. 3. Infected left foot. 4. Hypertension. 5. Diabetes. 6. Pain. On vancomycin IV and Zosyn, creatinine is going up. We adjust antibiotics. Please refer to the chart for further information. This case discussed with Dr. Feldman. We are still waiting for some notes from [facility] to arrive. We will follow up with C difficile. Dictated by Dwight Naranjo PA-C (Al) Amara Feldman MD /JAVIERL /[id number]
[2019-12-17] MEDS: VANCOMYCIN 250MG/5ML ORAL SOLN PO SCH ×2 (11:45→17:28)
--- NOTE | 2019-12-17 15:48 | NUR ---
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 Labs and meds reviewed. Pt is a 54 year old female admitted with chest pain to rule out acute OH and sepsis. Attempted to call patient over the phone, but she did not answer. It is recorded that pt has been consuming 75-100% of meals. Last recorded weight was 175 lbs in August 2017. Will continue to monitor unless consulted sooner Current Diet: 1800 kcal diabetic/cardiac diet Malnutrition Evaluation (12/17/19) The patient does not meet criteria for a specified degree of malnutrition at this time. Will re-evaluate at follow-up as appropriate. Diet Education Needs Assessment: RD is available for diet education as needed Nutrition Care Level: low Signed: Alena Padron, BK, LD
--- NOTE | 2019-12-17 18:30 | NUR ---
DRESSING TO LEFT FOOT CHANGED PER ORDER. WOUND COVERS MOST OF PLANTAR SURFACE OF FOOT WITH WHITE SLOUGH. NO ODOR OR BLEEDING PRESENT. LEFT LOWER EXTREMITY WITH EDEMA PRESENT THAT PATIENT STATES IS RESOLVING.
--- NOTE | 2019-12-17 20:48 | NUR ---
Received report from nurse. Walking rounds completed.
[2019-12-17] MEDS: INSULIN GLARGINE 100 UNITS/ML VIAL SC SCH (21:00)
[2019-12-17] MEDS: QUETIAPINE FUMARATE 25 MG TAB PO SCH (21:00)
[2019-12-17] MEDS: MICONAZOLE NITRATE 45 GM CR VG SCH (21:00)
[2019-12-17] MEDS: ATORVASTATIN 40 MG TAB PO SCH (21:00)
[2019-12-18] VITALS (8 sets, daily range): BP systolic 118–135; BP diastolic 70–84
--- NOTE | 2019-12-18 | NUR ---
Patient received pain meds as requested. Nausea meds also given.
[2019-12-18] MEDS: VANCOMYCIN 250MG/5ML ORAL SOLN PO SCH ×5 (05:25→23:32)
[2019-12-18] MEDS: MORPHINE SULFATE INJ 4 MG/ML INJ 1ML IV PRN ×3 (05:34→18:47)
[2019-12-18] MEDS: ONDANSETRON HCL INJ 2MG/ML 2ML 2 MG/ML VIAL IV PRN ×3 (05:36→18:47)
--- NOTE | 2019-12-18 06:39 | NUR ---
More pain meds request and given as ordered by .
--- NOTE | 2019-12-18 07:00 | NUR ---
BEDSIDE SHIFT REPORT FROM SPINNERET PERSON NURSE. PT DENIES NEEDS AT THIS TIME.
[2019-12-18] MEDS: COLLAGENASE 5 GM TUBE TOP SCH (09:29)
[2019-12-18] MEDS: METOPROLOL SUCCINATE 50 MG TAB XL PO SCH (09:29)
[2019-12-18] MEDS: PREGABALIN 75 MG CAP PO SCH ×2 (09:29→17:11)
[2019-12-18] MEDS: VENLAFAXINE HCL 75 MG CAPCR PO SCH (09:29)
[2019-12-18] MEDS: ASPIRIN 81 MG CHEW TAB PO SCH (09:29)
[2019-12-18] MEDS: PRASUGREL 10 MG TAB PO SCH (09:29)
[2019-12-18] MEDS: VANCOMYCIN 1GM/NS 250 ML 250 ML IV SCH (09:31)
[2019-12-18] MEDS: INSULIN LISPRO 100 UNIT/1 ML 3ML VIAL SQ SCH ×4 (09:32→20:35)
--- NOTE | 2019-12-18 09:56 | Progress Note ---
DATE: 12/18/2019 SUBJECTIVE: This is a 54-year-old female with past medical history of type 2 diabetes, peripheral vascular disease, hypertension, coronary artery disease, pneumonia, who is being seen for left foot infection. She currently relates to moderate pain to the left foot. She relates to improvement in chest pain, still has some shortness of breath. She relates to having a diarrhea without nausea and vomiting. The patient denies, there are no fever or chills. OBJECTIVE: VITAL SIGNS: Today temperature is 98.5, heart rate 78, respiratory rate 18, blood pressure 118/70, pulse ox is 95% on room air. PROBLEM FOCUSED LOWER EXTREMITY PHYSICAL EXAM: Vascular, dorsalis pedis and posterior tibial pulses are faintly palpable at 1/4. Capillary refill time is 4-5 seconds to the left foot. Erythema, edema, and warmth are noted to the left foot and also to the anterior aspect of the patient's left siddiqui. Right foot pulses are palpable at 1/4. Negative erythema. Moderate edema is noted. Negative warmth. NEUROLOGICAL: Sensation is diminished to light touch. Pain on palpation is noted to the patient's left foot wound. MUSCULOSKELETAL: Right arm amputation otherwise deferred at this time. No gross deformities to feet, bilateral. DERMATOLOGICAL: Large open ulceration noted to plantar aspect of the left foot extending from the level of the metatarsal head to the proximal aspect of the heel encompassing the entire foot from medial to lateral. The wound remains approximately 80% fibrotic, 10% necrotic, and 10% granular. Superficial blister formation is noted to the medial and distal aspect of the wound plantarly. There is periwound erythema, edema, and warmth, however, no fluctuance. Abscess formation appears to be present. The wound does not probe deep to tendon or bone. The entire wound is subcutaneous at stage 3 level. LABORATORY DATA: White blood cell count is 21.29 with increase from 14.45, hemoglobin 10.7, hematocrit 32.6, platelet count is 277, neutrophil percentage is 93.5, absolute neutrophil count is 19.9. Sodium 138, potassium 5.3, chloride 104, CO2 28, BUN 37, creatinine 1.36, BUN 27, glucose 199. Hemoglobin A1c is 10.8. ASSESSMENT: 1. Left foot stage 3 ulceration with cellulitis. 2. Type 2 diabetes, peripheral neuropathy. 3. Peripheral vascular disease. 4. Coronary artery disease. 5. Pneumonia. 6. History of hepatitis C and chronic kidney disease. PLAN: The patient was seen and evaluated, discussed condition and treatment options with the patient in detail. At this time, continue antibiotics per Infectious Disease and daily wound care with Santyl, followed by saline wet-to-dry with ABD pads, 4x4s, Kerlix. At this point, there does not appear to be any fluctuance or abscess formation present to the left foot. The patient relates that she had an MRI done within the past week at [facility] and the hospital is acquiring that information. The patient will require a wound debridement and continue IV antibiotics. At the moment, no surgical intervention is recommended by the Podiatry Service. The patient will certainly require long-term wound care to the left foot and would benefit from hyperbaric oxygen possible synthetic skin grafting in the future. Discussed with the patient that if wound continues to deteriorate, she may require surgical debridement and possible amputation. The patient understands. The Podiatry Service will continue to monitor as an inpatient. FREDERICK Clark/JESUS /[id number]
--- NOTE | 2019-12-18 18:32 | Progress Note ---
DATE: 12/18/2019 Cardiology Progress Note. SUBJECTIVE: The patient reports she had chest pain yesterday, lasting seconds. She described as something hitting her chest. She states her shortness of breath has improved. OBJECTIVE: VITAL SIGNS: Temperature 98 degrees, pulse 93, respiratory rate 16, blood pressure 128/83, and oxygen saturation 96% on room air. GENERAL: Awake, alert, in no acute distress. LUNGS: Degrees breath sounds at the bases, otherwise clear to auscultation. No wheezes or crackles. CARDIOVASCULAR: Normal rate, regular rhythm. No murmur. Normal S1, S2. ABDOMEN: Soft, nontender. EXTREMITIES: 1+ pitting edema bilaterally. CARDIAC MEDICATIONS: 1. Prasugrel 10 mg p.o. daily. 2. Metoprolol succinate 50 mg p.o. daily. 3. Aspirin 81 mg p.o. daily. 4. Atorvastatin 40 mg p.o. at bedtime. LABORATORY DATA: None today. TELEMETRY: Personally reviewed and interpreted revealing normal sinus rhythm. IMPRESSION: 1. Cellulitis and possible osteomyelitis of the left foot. 2. Sepsis secondary to above. 3. Coronary artery disease, status post LAD PCI May 2019. 4. Acute on chronic diastolic heart failure. 5. Diabetes mellitus. 6. Hypertension. 7. History of hepatitis C. 8. Acute kidney injury versus chronic kidney disease. RECOMMENDATIONS: Antibiotics per Infectious Disease. The patient is ruled out for myocardial infarction with serial cardiac biomarkers. No further ischemic evaluation is indicated at this time. Echocardiogram with preserved LVEF. Recommend diuretics, given her acute on chronic diastolic heart failure. Monitor creatinine closely and replete electrolytes. Wound care per Podiatry. Continue on dual antiplatelet therapy given her very recent stent and continue current cardiac medications. Thank you for this consult. We will continue to follow this. Albina Clement MD ABS/MODL /[id number]
[2019-12-18] MEDS: FUROSEMIDE INJ 10 MG/ML 4 ML VIAL IV SCH (18:46)
[2019-12-18] MEDS: ATORVASTATIN 40 MG TAB PO SCH (20:26)
[2019-12-18] MEDS: QUETIAPINE FUMARATE 25 MG TAB PO SCH (20:26)
[2019-12-18] MEDS: MICONAZOLE NITRATE 45 GM CR VG SCH (20:26)
[2019-12-18] MEDS: INSULIN GLARGINE 100 UNITS/ML VIAL SC SCH (20:32)
[2019-12-19] VITALS (9 sets, daily range): BP systolic 127–139; BP diastolic 77–92
--- NOTE | 2019-12-19 00:50 | NUR ---
DRESSING TO LEFT FOOT CHANGED PER DR SIMON RECOMMENDATION OF JENNIFER, NS ABD, 4X4 AND KERLEX. WOUND BASE IS PRIMARILY WHITE TO YELLOW SLOUGH WITH A SMALL AMOUNT OF NECROTIC TISSUE TOWARDS HEEL. THIS RN WAS CAREFUL TO APPLY SANTYL AND WET TO DRY DRESSING TO ENTIRE WOUND AREA. PATIENT TOLERATED WELL AND ACTUALLY SLEPT THROUGH WOUND CARE.
[2019-12-19] MEDS: VANCOMYCIN 250MG/5ML ORAL SOLN PO SCH ×3 (05:26→17:55)
[2019-12-19 06:14] LABS: BASOPHILS # (AUTO) 0.1 (0.0-0.1); BASOPHILS % 0.3 % (0.0-1.0); EOSINOPHILS # (AUTO) 0.5 (0.0-0.4); EOSINOPHILS % 2.6 % (0.0-6.0); HEMATOCRIT 34.4 % (34.2-44.1); HEMOGLOBIN 10.8 g/dL (12.0-16.0); LYMPHOCYTES # (AUTO) 2.5 (1.0-3.2); LYMPHOCYTES % 14.8 % (18.0-39.1); MEAN CORPUSCULAR HEMOGLOBIN 27.5 pg (28-32); MEAN CORPUSCULAR HGB CONC 31.4 g/dL (31-35); MEAN CORPUSCULAR VOLUME 87.5 fL (81-99); NEUTROPHILS # (AUTO) 12.9 (2.1-6.9); NEUTROPHILS % 75.5 % (38.7-80.0); PLATELET COUNT 273 x10e3/uL (140-360); RED BLOOD COUNT 3.93 x10e6/uL (3.6-5.1); RED CELL DISTRIBUTION WIDTH 15.7 % (11.7-14.4)
[2019-12-19 06:45] LABS: ANION GAP 9.6 mmol/L (8-16); CALCIUM 8.2 mg/dL (8.4-10.2); CREATININE, SERUM 0.99 mg/dL (0.57-1.11); POTASSIUM 4.6 mmol/L (3.5-5.1)
--- NOTE | 2019-12-19 07:00 | NUR ---
BEDSIDE SHIFT REPORT FROM EMPLOYMENT ATTORNEY NURSE. PT DENIES NEEDS AT THIS TIME.
[2019-12-19] MEDS: INSULIN LISPRO 100 UNIT/1 ML 3ML VIAL SQ SCH ×4 (07:30→21:41)
[2019-12-19] MEDS: COLLAGENASE 5 GM TUBE TOP SCH (09:16)
[2019-12-19] MEDS: ASPIRIN 81 MG CHEW TAB PO SCH (09:16)
[2019-12-19] MEDS: PRASUGREL 10 MG TAB PO SCH (09:16)
[2019-12-19] MEDS: PREGABALIN 75 MG CAP PO SCH ×3 (09:16→17:55)
[2019-12-19] MEDS: VENLAFAXINE HCL 75 MG CAPCR PO SCH (09:16)
[2019-12-19] MEDS: METOPROLOL SUCCINATE 50 MG TAB XL PO SCH (09:16)
[2019-12-19] MEDS: FUROSEMIDE INJ 10 MG/ML 4 ML VIAL IV SCH (09:16)
[2019-12-19] MEDS: VANCOMYCIN 1GM/NS 250 ML 250 ML IV SCH (09:44)
--- NOTE | 2019-12-19 09:44 | NUR ---
SPOKE TO AL ABOUT VANC TROUGH. INSTRUCTED TO CONTINUE VANC.
--- NOTE | 2019-12-19 10:44 | Progress Note ---
DATE: 12/19/2019 SUBJECTIVE: This is a 54-year-old female with past medical history of type 2 diabetes, peripheral vascular disease, hypertension, coronary artery disease, who is being seen for left foot infection. She continues to relate to moderate pain to the left foot. She does relate to improvement in chest pain and shortness of breath. She also relates that her diarrhea has improved. She has no nausea, vomiting, fever, or chills. No acute issues overnight. OBJECTIVE: VITAL SIGNS: Today temperature is 99.5, heart rate 90, respiratory rate 18, pulse ox is 92% on room air. PROBLEM FOCUSED LOWER EXTREMITY PHYSICAL EXAM: Vascular, dorsalis pedis and posterior tibial pulses are faintly palpable at 1/4 to the left lower extremity. Capillary refill time is 4-5 seconds to the left foot. Erythema, edema, and warmth are noted to the left foot as well as the anterior aspect of the patient's left siddiqui. Right foot pulses are palpable at 1/4. Negative erythema. Edema and warmth are present. NEUROLOGICAL: Sensation is diminished to light touch bilateral. Pain on palpation is noted to the patient's left foot wound. MUSCULOSKELETAL: Right arm amputation. Otherwise, deferred at this time. No gross deformities are noted to the feet bilaterally. DERMATOLOGICAL: A large open ulceration is noted to the plantar aspect of the patient's left foot, which is less macerated at this time as it was left open to the air. The wound extends to the level of the metatarsal head to the proximal aspect of the patient's left heel encompassing the entire foot from medial to lateral. The wound remains approximately 80% fibrotic, 10% necrotic, 10% granular. Periwound erythema, edema, and warmth are present, however, appears to be improving. No fluctuance or abscess formation appears to be present. The wound does not probe deep to tendon or bone. The entire wound is subcutaneous at stage 3 level. LABORATORY DATA: White blood cell count is 17.1 down from 21.2, hemoglobin 10.8, hematocrit 34.4, and platelet count 273, neutrophil percentage is 75.5, absolute neutrophil count is 12.9. Sodium 137, potassium 4.6, chloride 103, CO2 29, BUN 34, creatinine 0.99, glucose 61. ASSESSMENT: 1. Left foot stage 3 ulceration with cellulitis and possible osteomyelitis. 2. Type 2 diabetes, peripheral neuropathy. 3. Peripheral vascular disease. 4. Coronary artery disease. 5. Pneumonia. 6. Chronic kidney disease. 7. History of hepatitis C. PLAN: The patient was seen and evaluated. Discussed condition and treatment options with the patient in detail. At this time, we will continue antibiotics per Infectious Disease and daily wound care with Santyl, followed by saline wet-to-dry with ABD pads, 4x4s and Kerlix. Again at this point, there does not appear to be any fluctuance or abscess formation at the patient's left foot. We will obtain new wound cultures from the left foot today. Still awaiting results from previous MRI that was done at [facility]. We will plan for a bedside wound debridement tomorrow. We will have the patient sign a consent form. At the moment, no surgical intervention is recommended at this time. The patient will certainly require long-term wound care to the left foot, and would benefit from IV antibiotics, hyperbaric oxygen, and possible skin grafting in the future. Again discussed with the patient that if the wound continues to deteriorate, she may require surgical debridement, possible amputation. The patient understands. Podiatry Service will continue to monitor as an inpatient. FREDERICK Clark/JESUS /[id number]
[2019-12-19] MEDS: COLLAGENASE OINTMENT 30 GM TUBE TP SCH (11:03)
[2019-12-19] MEDS: MORPHINE SULFATE INJ 4 MG/ML INJ 1ML IV PRN (16:07)
--- NOTE | 2019-12-19 18:25 | Progress Note ---
DATE: 12/19/2019 Cardiology Progress Note SUBJECTIVE: The patient denies chest pain or shortness of breath. OBJECTIVE: VITAL SIGNS: Temperature 98.1 degrees, pulse 86, respiratory rate 18, blood pressure 133/90, oxygen saturation 97%. GENERAL: Awake, alert, in no acute distress. LUNGS: Decreased breath sounds at the bases, otherwise clear to auscultation. No wheezes or crackles. CARDIOVASCULAR: Normal rate, regular rhythm. No murmur. Normal S1, S2. ABDOMEN: Soft, nontender. EXTREMITIES: 1+ pitting edema bilaterally. CARDIAC MEDICATIONS: Furosemide 40 mg IV daily, prasugrel 10 mg p.o. daily, metoprolol succinate 50 mg p.o. daily, aspirin 81 mg p.o. daily, atorvastatin 40 mg p.o. at bedtime. LABORATORY DATA: WBC 17.13, hemoglobin 10.8, hematocrit 34.4, platelets 273. Sodium 137, potassium 4.6, chloride 103, CO2 29, BUN 34, and creatinine 0.99. TELEMETRY: Personally reviewed and interpreted revealing normal sinus rhythm. IMPRESSION: 1. Cellulitis and possible osteomyelitis of the left foot. 2. Sepsis secondary to above. 3. Coronary artery disease, status post left anterior descending artery, percutaneous coronary intervention May 2019. 4. Acute on chronic diastolic heart failure. 5. Diabetes mellitus. 6. Hypertension. 7. History of hepatitis C. 8. Acute kidney injury versus chronic kidney disease. RECOMMENDATIONS: Antibiotics per Infectious Disease. The patient ruled out for myocardial infarction with serial cardiac biomarkers. No further ischemic evaluation is indicated at this time. Echocardiogram demonstrated preserved LVEF. Recommend continued diuresis given her acute on chronic diastolic heart failure. Monitor creatinine closely and replete electrolytes. Wound care per Podiatry. Continue the dual antiplatelet therapy given her very recent stent. Continue current cardiac medications otherwise. We will check bilateral lower extremity arterial Doppler. Thank you for this consult. We will continue to follow. Albina Clement MD ABS/MODL /[id number]
--- NOTE | 2019-12-19 19:10 | NUR ---
Bedside report and walking rounds completed with off going nurse. Patient in bed with call light within reach. No issues or concerns noted. Will continue to monitor.
[2019-12-19] MEDS: INSULIN GLARGINE 100 UNITS/ML VIAL SC SCH (21:41)
[2019-12-19] MEDS: QUETIAPINE FUMARATE 25 MG TAB PO SCH (21:41)
[2019-12-19] MEDS: ATORVASTATIN 40 MG TAB PO SCH (21:41)
[2019-12-19] MEDS: MICONAZOLE NITRATE 45 GM CR VG SCH (21:41)
[2019-12-20] VITALS (8 sets, daily range): BP systolic 107–152; BP diastolic 60–87
--- NOTE | 2019-12-20 00:30 | NUR ---
Dressing to left foot soiled. Dressing changed per MD order, tolerated well. Noted yellow sluffing to bottom of foot and small necrotic area to heel.
[2019-12-20] MEDS: VANCOMYCIN 250MG/5ML ORAL SOLN PO SCH ×4 (00:45→17:50)
[2019-12-20] MEDS: MORPHINE SULFATE INJ 4 MG/ML INJ 1ML IV PRN ×3 (01:10→16:07)
--- NOTE | 2019-12-20 06:00 | NUR ---
Called Pharmacy needing dose of oral vanc 250mg/5ml. Non on global find. Will call when ready to be picked up or will bring and stock unit.
--- NOTE | 2019-12-20 07:10 | NUR ---
Bedside report and walking rounds completed with oncoming nurse. Patient in bed with call light within reach. No issues or concerns noted. Will continue to monitor.
[2019-12-20] MEDS: INSULIN LISPRO 100 UNIT/1 ML 3ML VIAL SQ SCH ×4 (07:30→21:19)
[2019-12-20] MEDS ORDERED: LIDOCAINE HCL 2% JELLY 5 ML TUBE TOP ONE (08:20)
--- NOTE | 2019-12-20 08:33 | Operative Report ---
DATE OF PROCEDURE: 12/20/2019 SURGEON: Abhi Dumont DPM PREOPERATIVE DIAGNOSIS: Left foot stage III ulceration. POSTOPERATIVE DIAGNOSIS: Left foot stage III ulceration. PLANNED PROCEDURE: Left foot excisional subcutaneous debridement with irrigation. PROCEDURE NOTE: Informed consent was signed by the patient and the correct procedure and site was identified prior to the procedure. Utilizing 5 mL of 2% lidocaine jelly, local anesthesia was achieved to the patient's left foot ulceration. Utilizing a combination #15 blade and a curette, the wound was debrided of necrotic and devitalized tissue to the patient's tolerance. This was done excisionally to the level of subcutaneous tissue. The wound was then copiously irrigated with sterile saline and redressed utilizing Santyl followed by saline wet-to-dry. The patient tolerated the procedure and anesthesia well. FREDERICK Clark/MODL /[id number]
[2019-12-20] MEDS: COLLAGENASE OINTMENT 30 GM TUBE TP SCH (09:00)
[2019-12-20] MEDS: PREGABALIN 75 MG CAP PO SCH ×2 (09:00→17:00)
[2019-12-20] MEDS: FUROSEMIDE INJ 10 MG/ML 4 ML VIAL IV SCH (09:26)
[2019-12-20] MEDS: VENLAFAXINE HCL 75 MG CAPCR PO SCH (09:26)
[2019-12-20] MEDS: ASPIRIN 81 MG CHEW TAB PO SCH (09:26)
[2019-12-20] MEDS: VANCOMYCIN 1GM/NS 250 ML 250 ML IV SCH (09:26)
[2019-12-20] MEDS: PRASUGREL 10 MG TAB PO SCH (09:26)
[2019-12-20] MEDS: METOPROLOL SUCCINATE 50 MG TAB XL PO SCH (09:27)
--- NOTE | 2019-12-20 11:18 | Progress Note ---
DATE: SUBJECTIVE: The patient is seen, evaluated, and discussed with Dr. Feldman in detail. REVIEW OF SYSTEMS: No nausea, no vomiting, no fever, no chills. No chest pain. No shortness of breath. No headache. No dysuria. PHYSICAL EXAMINATION: VITAL SIGNS: Temperature 97.6, pulse 77, respirations 18, and blood pressure 133/75. GENERAL: Alert and oriented, no acute distress. CV: S1 and S2. CHEST: Equal expansion. Clear to auscultation. No acute distress. ABDOMEN: Soft and nontender. No distention. EXTREMITIES: Left foot is dressed. MEDICATIONS: Medication list reviewed. As far as Infectious Disease point of view, the patient is on vancomycin IV and vancomycin p.o. LABORATORY STUDIES: No new CBC or BMP available. MICROBIOLOGY: Wound culture from 12/18 is negative so far. RADIOLOGY STUDIES: No new radiology studies available. ASSESSMENT AND PLAN: Infected left foot, status post bedside debridement today by Podiatry. Wound culture from yesterday is negative so far. Leukocytosis improved. The patient is on vancomycin IV and vancomycin p.o. Vancomycin trough was 16.2 on 12/19/2019. Continue with wound care. Continue with PT/OT. Continue with tight glucose control. We will follow with the wound cultures. Discussed with Dr. Feldman in details. Dictated by Dwight Naranjo PA-C (Al) Amara Feldman MD /MODL /[id number]
--- NOTE | 2019-12-20 12:53 | Progress Note ---
DATE: SUBJECTIVE: The patient sleeping comfortably. No complaints. PHYSICAL EXAMINATION: VITAL SIGNS: Temperature is 97.2, heart rate 71, respirations are 18, blood pressure is 115/80, ox saturation 97% on room air. GENERAL: Well appearing, no apparent distress, alert and oriented. CARDIOVASCULAR: Regular rate and rhythm. No murmurs. LUNGS: Diminished breath sounds at bases. ABDOMEN: Soft, nontender. EXTREMITIES: Right forearm amputation, left foot is dressed and wrapped, there is edema. LABORATORY DATA: Reviewed. Hemoglobin is 10.7 with a white blood cell count of 21. Creatinine is 1.36. IMPRESSION: 1. Cellulitis and osteomyelitis of the left foot, sepsis. 2. Coronary artery disease, status post . 3. Acute on chronic diastolic heart failure. 4. Diabetes mellitus. 5. Hypertension. 6. Peripheral artery disease. 7. History of hepatitis C. RECOMMENDATIONS: The patient ruled out for acute myocardial infarction. Echocardiogram showed preserved left ventricular systolic function. Continue antibiotic and wound care per primary service. Continue anti-platelet therapies and high-dose statins. Fazal Rosales DO BM/MODL /[id number]
--- NOTE | 2019-12-20 15:24 | NUR ---
CALL TO DR. SIMON AT [facility] [place] [facility]([phone])TO GET PLAN FOR THIS PT. LEFT MESSAGE AT THE [place] [facility] @ [phone] FOR PLAN. HISTORIAN DRAMATIC ARTS STATES SHE HAS ONLY BEEN FOLLOWED BY DR. SIMON AN INPT. INFORMED HER OF HIS NOTE FROM 12/19/2019. STATES HE WILL BE THERE TOMORROW. CM TO F/U TOMORROW W PODIATRY. LEFT NOTE ON CHART FOR SARAH MURILLO FOR A PLAN. CALL TO [facility] TO SEE IF THE PT HAS LTACH BENEFITS. LEFT VM FOR DARRELL HUTCHISON. SPOKE W THE THE PT. PT STATES SHE LIVES W HER EX- AND FIANCE. STATES SHE HAD FALLEN PRIOR TO THIS ADMISSION AND BUST HER FACE AND EYE. PT SEEMED TO HAVE DIFFICULTY PUTTING HER WORDS TOGETHER. PT DID CONFIRM TANYA LUZ @ [phone] IS HER FIANCE. STATES HE CAN'T HELP HER BECAUSE OF RHEUMATOID ARTHRITIS. PT WAS NOT SURE IF SHE HAD AND RETIREMENT CARE BENEFITS. WILL CONT TO FOLLOW.
--- NOTE | 2019-12-20 18:38 | NUR ---
patient resting in bed, Alert with no distress, dressing on left foot is intact, call light in reach
--- NOTE | 2019-12-20 19:34 | Progress Note ---
DATE: 12/20/2019 SUBJECTIVE: The patient denies chest pain or shortness of breath. OBJECTIVE: VITAL SIGNS: Temperature 99 degrees, pulse 94, respiratory rate 19, blood pressure 107/60, and oxygen saturation 98%. GENERAL: Awake, alert, in no distress. LUNGS: Decreased breath sounds at the bases, otherwise clear to auscultation. No wheezes or crackles. CARDIOVASCULAR: Normal rate. Regular rhythm. No murmur. Normal S1, S2. ABDOMEN: Soft and nontender. EXTREMITIES: 1+ pitting edema bilaterally. CARDIAC MEDICATIONS: 1. Metoprolol succinate 50 mg p.o. daily. 2. Lasix 40 mg IV daily. 3. Prasugrel 10 mg p.o. daily. 4. Aspirin 81 mg p.o. daily. 5. Atorvastatin 40 mg p.o. at bedtime. LABORATORY DATA: None today. Telemetry was personally reviewed and interpreted, revealing normal sinus rhythm. IMPRESSION: 1. Cellulitis and possible osteomyelitis of the left foot. 2. Sepsis secondary to above. 3. Coronary artery disease, status post LAD PCI in May 2019. 4. Acute on chronic diastolic heart failure. 5. Diabetes mellitus. 6. Hypertension. 7. History of hepatitis C. 8. Acute kidney injury versus chronic kidney disease. RECOMMENDATIONS: Antibiotics per Infectious Disease. The patient ruled out for myocardial infarction with serial cardiac biomarkers. No further ischemic evaluation is indicated at this time. Echocardiogram demonstrated preserved LVEF. Recommend continued diuresis given her acute on chronic diastolic heart failure. Monitor creatinine closely and replete electrolytes. Wound care per Podiatry. Continue dual antiplatelet therapy given her very recent stent. Continue current cardiac medications. Bilateral lower extremity arterial Doppler did not demonstrate evidence of hemodynamically significant stenosis. We will monitor wound healing. We will continue to follow. Albina Clement MD ABS/MODL /[id number]
--- NOTE | 2019-12-20 20:44 | Consultation ---
DATE OF CONSULTATION: 12/18/[address] Jose Elias Shirley. HISTORY OF PRESENT ILLNESS: This is a 54-year-old white female, referred to me for evaluation of anemia. No history of hematochezia, melena, hematuria, hematemesis, hemoptysis. HISTORY OF PAST ILLNESS: History of recurrent breast infection with mastectomy, history of amputation of the right hand, history of gangrene of the left foot. SOCIAL HISTORY: Noncontributory. FAMILY HISTORY: Noncontributory. ALLERGIES: REPORTED: 1. HYDROCODONE. 2. CODEINE. MEDICATIONS: At this time: 1. Vancomycin. 2. Morphine. 3. Ondansetron. 4. Aspirin. 5. Metoprolol. 6. Pregabalin. 7. Quetiapine. 8. Venlafaxine. 9. Insulin. 10. Dextrose. 11. Collagenase. 12. Prasugrel. 13. Atorvastatin. 14. Tylenol. 15. Miconazole. 16. Tramadol. REVIEW OF SYSTEMS: HEENT: Normal. CARDIAC: History of hypertension. RESPIRATORY: Normal. GI: Normal. : Normal. MUSCULOSKELETAL: History of amputation of the right hand and gangrene of the left heel. NEUROENDOCRINE: History of diabetes mellitus. A1c now 10.8. PHYSICAL EXAMINATION: GENERAL: A moderately built female, anemic, no palpable adenopathy. HEART: Within normal limits. LUNGS: Clear. BREAST: Reveals a mastectomy scar. ABDOMEN: Soft. RECTAL: Deferred. VAGINAL: Deferred. CENTRAL NERVOUS SYSTEM: Essentially normal. EXTREMITIES: Right above wrist amputation, gangrene of the left heel. This is all bandaged up and I cannot examine it. LABORATORY DATA: Lab shows a hemoglobin of 10.7, hematocrit of 32.6, white count of 21,200, and platelets of 277,000. Sodium 138, potassium 5.3, chloride 74, CO2 of 28, BUN 37, creatinine 1.36, bilirubin 0.4, SGOT 21, SGPT 11, and alkaline phosphatase 309. IMPRESSION: 1. Infection of the left foot. 2. Recurrent breast infections with methicillin-resistant Staphylococcus aureus, status post mastectomy. 3. Status post amputation of the right hand. 4. Gangrene of the left heel. 5. Leukemoid reaction. 6. Anemia of chronic disease with initial hemoglobin of 8.8. 7. Hyperkalemia 5.4. 8. Hypoproteinemia of 5.8. 9. Hypoalbuminemia of 1.6. 10. Hyperglobulinemia of 5.2. 11. Diabetes mellitus with A1c of 10.8. 12. Hepatic steatosis by CAT scan. 13. Splenomegaly by CAT scan. PLAN, COMMENTS, AND SUGGESTIONS: Aggressive antibiotic therapy. Quantitative immunoglobulins to make sure she does not have an underlying malignancy. MD SHERIDAN Hampton/MODL /[id number]
--- NOTE | 2019-12-20 20:44 | Progress Note ---
DATE: 12/20/2019 Kathy Jefferson is a 54-year-old white female, referred to me for evaluation of anemia with a hemoglobin on 12/15/2019, was 8.8; the patient dropped to 7.7; hemoglobin after transfusion on 12/17/2019, was 10.7; on 12/19/2019, was 10.8, white count was coming down 17,130 on 12/19/2019. Chemistry still shows an extremely high glucose of 232, ammonia level has been running high at 45 and 51. Quantitation of immunoglobulins shows the patient to have monoclonal gammopathy with IgG high at 2375, IgA low at 346, IgM low at 135; this is highly suggestive of multiple myeloma; once home, I will do a bone marrow as outpatient. MD SHERIDAN Hampton/JESUS /[id number]
[2019-12-20] MEDS: ATORVASTATIN 40 MG TAB PO SCH (21:18)
[2019-12-20] MEDS: MICONAZOLE NITRATE 45 GM CR VG SCH (21:18)
[2019-12-20] MEDS: QUETIAPINE FUMARATE 25 MG TAB PO SCH (21:18)
[2019-12-20] MEDS: INSULIN GLARGINE 100 UNITS/ML VIAL SC SCH (21:19)
[2019-12-21] VITALS (8 sets, daily range): BP systolic 132–158; BP diastolic 75–93
[2019-12-21] MEDS: VANCOMYCIN 250MG/5ML ORAL SOLN PO SCH ×4 (00:25→17:18)
[2019-12-21] MEDS: MORPHINE SULFATE INJ 4 MG/ML INJ 1ML IV PRN ×4 (01:15→21:20)
--- NOTE | 2019-12-21 07:15 | NUR ---
Bedside report and walking rounds completed with oncoming nurse. Patient in bed with call light within reach. No issues or concerns noted.
[2019-12-21] MEDS: INSULIN LISPRO 100 UNIT/1 ML 3ML VIAL SQ SCH ×4 (07:30→21:44)
[2019-12-21] MEDS: FUROSEMIDE INJ 10 MG/ML 4 ML VIAL IV SCH (08:14)
--- NOTE | 2019-12-21 08:30 | NUR ---
Spoke to Dr. Dumont. States he prefers for pt to go to wound clinic for HBO if possible. If pt unable to go to wound clinic, wound care order for home health: Santyl and saline wet to dry daily.
[2019-12-21] MEDS: VANCOMYCIN 1GM/NS 250 ML 250 ML IV SCH (08:56)
[2019-12-21] MEDS: PRASUGREL 10 MG TAB PO SCH (08:56)
[2019-12-21] MEDS: ASPIRIN 81 MG CHEW TAB PO SCH (08:56)
[2019-12-21] MEDS: VENLAFAXINE HCL 75 MG CAPCR PO SCH (08:56)
[2019-12-21] MEDS: METOPROLOL SUCCINATE 50 MG TAB XL PO SCH (08:56)
[2019-12-21] MEDS: PREGABALIN 75 MG CAP PO SCH ×2 (09:00→17:00)
--- NOTE | 2019-12-21 09:21 | Progress Note ---
DATE: 12/21/2019 SUBJECTIVE: This is a 54-year-old female with past medical history of type 2 diabetes, peripheral vascular disease, hypertension, coronary artery disease, who is being seen for left foot infection. She is postoperative day #1, left foot wound debridement. She relates to moderate pain to the left foot, but improvement in chest pain and shortness of breath. She also relates that her diarrhea has improved. Currently denies nausea, vomiting, fever, chills, chest pain, or shortness of breath. PHYSICAL EXAMINATION: GENERAL: Alert and oriented x3, in no apparent distress. VITAL SIGNS: Today, temperature 98.4, heart rate 75, respiratory rate 20, blood pressure 132/79, pulse ox 95% on room air. EXTREMITIES: Problem focused lower extremity physical exam. Vascular: Dorsalis pedis and posterior tibial pulses are faintly palpable. Capillary refill time is approximately 4 to 5 seconds to the level of the digits. Erythema, edema, and warmth are noted to the left foot as well as to the anterior left siddiqui. NEUROLOGICAL: Sensation is diminished to light touch, however, pain on palpation is noted to the left foot wound. MUSCULOSKELETAL: Right arm and amputation. Otherwise, deferred. No gross deformities are noted. DERMATOLOGICAL: A large open ulceration to the plantar aspect of the patient's left foot, which is macerated at this time due to strikethrough from previous debridement. The wound extends from the level of the metatarsal head to the proximal aspect of the patient's left heel is compressing the entire foot medial to lateral. The wound is about 60% fibrotic, 20% granular, and 20% necrotic. Periwound erythema, edema, and warmth are present, however, they would do appear to be improving. No fluctuance or abscess formation appears to be present. The wound does not probe deep to tendon or bone. The entire wound is at subcutaneous level and stage III. LABORATORY DATA: No new CBC at this time. Glucose 232. ASSESSMENT: 1. Left foot stage III ulceration with cellulitis, possible osteomyelitis. 2. Type 2 diabetes. 3. Peripheral neuropathy. 4. Peripheral vascular disease. 5. Coronary artery disease. 6. Pneumonia. 7. Chronic kidney disease. 8. History of hepatitis C. The patient was seen and evaluated. Discussed condition and treatment options with the patient in detail. Dressing change was performed today with the Francisco, followed by saline wet-to-dry 4x4s, ABD pads, Kerlix, and Coban. The wound does appear to be improving with debridement and IV antibiotics. Wound cultures reveal no growth. At the moment, no surgical intervention is recommended at this time. The patient will require long-term wound care to the left foot with IV antibiotics, hyperbaric oxygen, possible skin grafting, and follow up at the [facility]. Discussed with the patient that if the wound continues to deteriorate, she may require surgical debridement and possible amputation. The patient understands. Podiatry Service will continue to monitor as an inpatient. FREDERICK Clark/JESUS /[id number]
--- NOTE | 2019-12-21 10:46 | Progress Note ---
DATE: SUBJECTIVE: The patient is seen, evaluated, and discussed with Dr. Feldman in details. The patient is comfortable in bed, eating breakfast. No complaints. MEDICATIONS: Medication list is reviewed. As far as Infectious Disease point of view, the patient is on vancomycin p.o., miconazole topical, vancomycin IV. REVIEW OF SYSTEMS: No nausea, no vomiting. No fever, no chills. No chest pain. No shortness of breath. No headache. No dysuria. No polyuria. No rash. Tolerating antibiotics. OBJECTIVE: VITAL SIGNS: Temperature 98.4, pulse 81, respirations 20, and blood pressure 158/93. GENERAL: Alert, oriented, in no acute distress. CV: S1, S2. CHEST: Equal expansion, clear to auscultation. No acute distress. ABDOMEN: Soft and nontender. No distention. HEENT: Moist. No pallor. No JVD. EXTREMITIES: Left foot, status post debridement and dressed since the debridement by Podiatry. LABORATORY DATA: No new CBC or BMP available. Toxicology, vancomycin trough was 11 this morning. Serology Clostridium difficile was negative. However, the patient responded to vancomycin p.o. with improvement in her leukocytosis. MICROBIOLOGY: Wound culture from 12/18, negative for 2 days. Blood culture on 12/15/2019, negative. RADIOLOGY STUDIES: No new radiology studies available. Echo showed 55% ejection fraction of left ventricle. ASSESSMENT AND PLAN: 1. Infected left foot. 2. Morbid obesity. 3. Hyperlipidemia. 4. Debility. 5. Cellulitis of the left foot. 6. Acute on chronic diastolic heart failure. 7. Diabetes mellitus. 8. Hypertension. 9. Acute renal insufficiency, improved. 10. Continue with the local care. 11. Continue with the cultures. 12. Continue with the IV antibiotics. 13. PT/OT. 14. Discussed with Dr. Feldman in details. 15. Further management of this patient is based on daily finding, laboratory, and physical exam. Discussed with Dr. Feldman in details. Please refer to chart for more information. Plan for LTAC. Dictated by Dwight Naranjo PA-C (Al) Amara Feldman MD /MODL /[id number]
[2019-12-21 11:35] LABS: ANION GAP 8.3 mmol/L (8-16); BLOOD UREA NITROGEN 23 mg/dL (7-26); BUN/CREATININE RATIO 30 (6-25); CALCIUM 8.2 mg/dL (8.4-10.2); CARBON DIOXIDE 28 mmol/L (22-29); CHLORIDE 104 mmol/L (98-107); CREATININE, SERUM 0.77 mg/dL (0.57-1.11); EST GLOMERULAR FILTRATION RATE > 60 ML/MIN (60-); GLUCOSE 65 mg/dL (74-118); POTASSIUM 4.3 mmol/L (3.5-5.1); SODIUM 136 mmol/L (136-145)
[2019-12-21] MEDS: COLLAGENASE OINTMENT 30 GM TUBE TP SCH (11:46)
--- NOTE | 2019-12-21 12:11 | Progress Note ---
DATE: 12/21/2019 Cardiology Progress Note SUBJECTIVE: The patient denies chest pain or shortness of breath. OBJECTIVE: VITAL SIGNS: Temperature 98.4 degrees, pulse 81, respiratory rate 20, blood pressure 158/93, oxygen saturation 95%. GENERAL: Awake, alert, in no acute distress. LUNGS: Decreased breath sounds at the bases, otherwise clear to auscultation. No wheezes or crackles. CARDIOVASCULAR: Normal rate and regular rhythm. No murmur. Normal S1 and S2. ABDOMEN: Soft, nontender. EXTREMITIES: 1+ pitting edema bilaterally. CARDIAC MEDICATIONS: Atorvastatin 40 mg p.o. at bedtime, metoprolol succinate 50 mg p.o. daily, Lasix 40 mg IV daily, prasugrel 10 mg p.o. daily, aspirin 81 mg p.o. daily. LABORATORY DATA: Pending. Telemetry was personally reviewed and interpreted revealing normal sinus rhythm. IMPRESSION: 1. Cellulitis and possible osteomyelitis of the left foot. 2. Sepsis secondary to above. 3. Coronary artery disease, status post LAD PCI in May 2019. 4. Mvsxv-yg-atjkmjh diastolic heart failure. 5. Diabetes mellitus. 6. Hypertension. 7. History of hepatitis C. 8. Acute kidney injury versus chronic kidney disease. RECOMMENDATIONS: Antibiotics per Infectious Disease. The patient ruled out for myocardial infarction with serial cardiac biomarkers. No further ischemic evaluation is indicated at this time. Echocardiogram demonstrated preserved LVEF. Recommend continue diuresis given her snnqn-[id number] diastolic heart failure. Monitor creatinine closely and replete electrolytes. Wound care per Podiatry. Continue dual antiplatelet therapy given her very recent stent. Continue current cardiac medications. Bilateral lower extremity arterial doppler did not demonstrate evidence of hemodynamically significant stenosis. Monitor wound healing. Thank you for this consult. We will continue to follow. Albina Clement MD ABS/MODL /[id number]
--- NOTE | 2019-12-21 13:28 | NUR ---
Received LTAC eval order. CM had pt's benefits ran and was told pt does not have any LTAC benefits. Spoke to pt and informed her of Dr. Dumont's preference for wound care. Pt states that she will be able to go to wound clinic for wound care if needed. Gave choice for [facility]. Pt also stated that she currently has home health but does not know the name of the company. States her maria fernanda Rainey would be able to tell CM. CM placed call to Mr. Rainey and left VM to return call. HBO consult and fs faxed to wound center at [phone].
--- NOTE | 2019-12-21 19:20 | NUR ---
RECEIVED LINDSAY SOLIS REPORT.LYEING IN THE BED.
--- NOTE | 2019-12-21 20:28 | Progress Note ---
DATE: 12/21/2019 Kathy Jefferson is a 54-year-old female, who was referred to me for evaluation of anemia and leukocytosis for detailed consult. Please review my dictation. The patient is still getting antibiotics. The patient is still leukemoid with a white count of 17,130. This was done on 12/19/2019 with a low hemoglobin of 10.8 and a platelet count of 273,000. The chemistry shows sodium of 136, potassium 4.3, chloride is 104, CO2 28, glucose 65, calcium is low at 8.2, blood sugar has been ranging between 203 to 67. Hematology, quantitation of immunoglobulins were done because of the high globulins. The patient is showing a monoclonal gammopathy with an IgG of 2375, IgA 346, and IgM 135. The patient's imaging, CTA of the abdomen and pelvis is reported diffuse hepatic steatosis, splenomegaly. This is dated 12/16/2019. Microbiology, wound culture on 12/18, shows no growth. Blood cultures have been reported negative. I will confine myself to Hematology/Oncology only. As the patient does seem to have a monoclonal gammopathy, she may have MGUS or smoldering myeloma or multiple myeloma. I have discussed with Dr. Shirley. This is not the time for me to do a bone marrow with active infection going on. This could wait a month or two. I could do it as outpatient in my office. Thank you for allowing me to participate in the management of this patient. Abhi Bradley MD MAQ/MODL /[id number] cc: Jose Elias Shirley MD
[2019-12-21] MEDS: INSULIN GLARGINE 100 UNITS/ML VIAL SC SCH (21:10)
[2019-12-21] MEDS: ONDANSETRON HCL INJ 2MG/ML 2ML 2 MG/ML VIAL IV PRN (21:15)
--- NOTE | 2019-12-21 21:25 | NUR ---
ASSESSMENT DONE.NO RESP.DISTRESS.POSITION CHANGED.DIAPER CHANGED.ON PUREWICK.HAD A BOWEL MOVEMENT.LEFT FOOT DRESSING IN PLACE.BED ALARM ON.BED LOCKED AND IN LOWEST POSITION.PHONE AND CALL LIGHT WITHIN REACH.INSTRUCTED TO CALL FOR ASSISTANCE NEEDED.
[2019-12-21] MEDS: QUETIAPINE FUMARATE 25 MG TAB PO SCH (21:40)
[2019-12-21] MEDS: ATORVASTATIN 40 MG TAB PO SCH (21:40)
[2019-12-21] MEDS: MICONAZOLE NITRATE 45 GM CR VG SCH (21:41)
[2019-12-22] VITALS (7 sets, daily range): BP systolic 101–137; BP diastolic 72–79
[2019-12-22] MEDS: VANCOMYCIN 250MG/5ML ORAL SOLN PO SCH ×4 (00:37→18:12)
[2019-12-22] MEDS: MORPHINE SULFATE INJ 4 MG/ML INJ 1ML IV PRN ×2 (02:39→06:39)
[2019-12-22 05:45] LABS: BASOPHILS # (AUTO) 0.1 (0.0-0.1); BASOPHILS % 0.3 % (0.0-1.0); EOSINOPHILS # (AUTO) 0.5 (0.0-0.4); EOSINOPHILS % 2.3 % (0.0-6.0); HEMATOCRIT 30.7 % (34.2-44.1); HEMOGLOBIN 10.1 g/dL (12.0-16.0); LYMPHOCYTES # (AUTO) 2.4 (1.0-3.2); LYMPHOCYTES % 12.2 % (18.0-39.1); MEAN CORPUSCULAR HGB CONC 32.9 g/dL (31-35); MONOCYTES # (AUTO) 1.1 (0.2-0.8); MONOCYTES % 5.4 % (4.4-11.3); NEUTROPHILS # (AUTO) 15.6 (2.1-6.9); NEUTROPHILS % 79.2 % (38.7-80.0); PLATELET COUNT 215 x10e3/uL (140-360); RED BLOOD COUNT 3.61 x10e6/uL (3.6-5.1); RED CELL DISTRIBUTION WIDTH 15.6 % (11.7-14.4)
--- NOTE | 2019-12-22 06:00 | NUR ---
Blood marlyn and sent to the lab from right [facility].pt tolerated well.
--- NOTE | 2019-12-22 07:05 | NUR ---
BED SIDE SHIFT REPORT GIVEN TO ONCOMING RN.STABLE CONDITION.
[2019-12-22] MEDS: INSULIN LISPRO 100 UNIT/1 ML 3ML VIAL SQ SCH ×4 (07:30→20:45)
[2019-12-22] MEDS: PREGABALIN 75 MG CAP PO SCH (09:00)
[2019-12-22] MEDS: VANCOMYCIN 1GM/NS 250 ML 250 ML IV SCH (10:31)
[2019-12-22] MEDS: ASPIRIN 81 MG CHEW TAB PO SCH (10:31)
[2019-12-22] MEDS: FUROSEMIDE INJ 10 MG/ML 4 ML VIAL IV SCH (10:31)
[2019-12-22] MEDS: PRASUGREL 10 MG TAB PO SCH (10:31)
[2019-12-22] MEDS: VENLAFAXINE HCL 75 MG CAPCR PO SCH (10:31)
[2019-12-22] MEDS: COLLAGENASE OINTMENT 30 GM TUBE TP SCH (10:32)
[2019-12-22] MEDS: METOPROLOL SUCCINATE 50 MG TAB XL PO SCH (10:32)
--- NOTE | 2019-12-22 11:15 | Progress Note ---
DATE: SUBJECTIVE: The patient seen and evaluated. Discussed with Dr. Feldman. REVIEW OF SYSTEMS: No nausea, no vomiting, no fever, no chills, no chest pain, no shortness of breath, no headache, no dysuria, no polyuria. OBJECTIVE: VITAL SIGNS: Temperature 99.3, pulse is 84, respiration 18, and blood pressure 101/73. GENERAL: Alert and oriented, no acute distress. CV: S1, S2. CHEST: Equal expansion, clear to auscultation. No acute distress. ABDOMEN: Soft and nontender. No distention. HEENT: Moist. No pallor. No JVD. EXTREMITIES: Left plantar foot, pretty much entire the plantar area except the toes. SKIN: Removed and the foot is debrided, has a small area, may about 1 cm around necrotic black tissue out on the heel. MEDICATIONS: Medication is reviewed as far as Infectious Disease point of view. The patient is on vancomycin IV and vancomycin p.o. LABORATORY STUDIES: White count of 19.6, hemoglobin of 10.1, and platelet 215. No new BMP. Serology; C. diff negative on 12/15/2019. MICROBIOLOGY: No new microbiology studies available. Wound culture from 12/18 is negative for 3 days. RADIOLOGY STUDIES: New radiology studies available. ASSESSMENT AND PLAN: 1. Left foot wound. 2. Infected left foot wound-culture negative as mentioned above. 3. Cellulitis of the left foot. 4. Diabetes mellitus. 5. Acute renal insufficiency. 6. Chronic pain. 7. Obesity. 8. Debility. 9. Hyperlipidemia. 10. Hypertension. Continue with antibiotics as mentioned. Discussed with the case management. The patient has no LTAC or SNF benefits, and discharge planning is in progress for home and management of the infection as outpatient. Please refer to chart for more information. Discussed with Dr. Feldman in details. Overall, guarded prognosis. MD JIGAR Silva/JESUS /[id number]
--- NOTE | 2019-12-22 12:13 | NUR ---
SPOKE WITH PT AND INSURANCE, PT CAN GO TO SNF FOR MANAGED MEDICAID BUT HAS TO BE THERE FOR 30 DAYS. PT STATES WANTS TO STAY CLOSE TO HOME IN [place]. CALLED [facility] THEY ACCEPT THE INSURANCE. COMPLETED FORM AND FILED IN CHART FOR CHOICE. WILL FAX CLINICALS TO FACILITY.
--- NOTE | 2019-12-22 13:30 | NUR ---
Spoke to Dr. Shirley. Pt now states she is unable to care for self and her fiance is not able to help her. Pt is [facility] to go to [facility] for skilled services under managed medicaid. Dr. Shirley states he was fine with that, but to check with Dr. Dumont. placed call to Dr. Dumont and updated him. He states he was fine with her going to [facility] as long as she's able to get wound care. SNF order entered. ADORE Gonzalez working on placement.
[2019-12-22] MEDS: TRAMADOL HCL 50 MG TAB PO PRN ×2 (15:20→21:09)
--- NOTE | 2019-12-22 19:12 | Progress Note ---
DATE: 12/22/2019 Cardiology Progress Note. SUBJECTIVE: The patient denies shortness of breath, but she does endorse chest pain today. She attributes this to being upset. OBJECTIVE: VITAL SIGNS: Temperature 99.6 degrees, pulse 93, respiratory rate 19, blood pressure 101/72, oxygen saturation 95% on room air. GENERAL: Chronically ill-appearing woman, in no acute distress, awake and alert. LUNGS: Decreased breath sounds at the bases, otherwise clear to auscultation. No wheezes or crackles. CARDIOVASCULAR: Normal rate, regular rhythm. No murmur. Normal S1, S2. ABDOMEN: Soft, nontender. EXTREMITIES: 1+ pitting edema bilaterally. CARDIAC MEDICATIONS: 1. Metoprolol succinate 50 mg p.o. daily. 2. Lasix 40 mg IV daily. 3. Prasugrel 10 mg p.o. daily. 4. Aspirin 81 mg p.o. daily. 5. Atorvastatin 40 mg p.o. at bedtime. LABORATORY DATA: WBC 19.67, hemoglobin 10.1, hematocrit 30.7, platelets 215. Sodium 136, potassium 4.3, chloride 104, CO2 of 28, BUN 23, creatinine 0.77. TELEMETRY: Personally reviewed, interpreted, revealing normal sinus rhythm. IMPRESSION: 1. Cellulitis and possible osteomyelitis of the left foot. 2. Sepsis secondary to above. 3. Coronary artery disease status post LAD PCI in May 2019. 4. Acute on chronic diastolic heart failure. 5. Diabetes mellitus. 6. Hypertension. 7. History of hepatitis C. 8. Acute kidney injury versus chronic kidney disease. RECOMMENDATIONS: Antibiotics per Infectious Disease. The patient ruled out for myocardial infarction with serial cardiac biomarkers. No further ischemic evaluation is indicated at this time. Echocardiogram demonstrated preserved LVEF. Recommend continuing diuresis due to her acute on chronic diastolic heart failure. Monitor creatinine closely and replete electrolytes. Bilateral lower extremity arterial Doppler did not demonstrate evidence of hemodynamically significant stenosis. Wound care per Podiatry. Monitor wound healing. If wound does not improve, consider CTA of the abdomen and pelvis for further evaluation. Continue dual antiplatelet therapy given her very recent stent and continue current cardiac medications. Thank you for this consult. We will continue to follow. Albina Clement MD ABS/MODL /[id number]
--- NOTE | 2019-12-22 19:15 | NUR ---
Patient visited in room during nursing rounds. Patient alert and oriented x3. On bedrest at this time. S/P debridement of left foot stage 2 ulcer on ventral side covered with santyl, wet-to-dry gauze, kerlix and walker bandage. Dressing clean, dry and intact. Pt on scheduled IV and PO Vancomycin. Limb alert on left arm due to history of left breast mastectomy in past. 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 Call rosario within reach. Will monitor pt closely.
[2019-12-22] MEDS: MICONAZOLE NITRATE 45 GM CR VG SCH (20:40)
[2019-12-22] MEDS: ATORVASTATIN 40 MG TAB PO SCH (20:45)
[2019-12-22] MEDS: QUETIAPINE FUMARATE 25 MG TAB PO SCH (20:45)
[2019-12-22] MEDS: INSULIN GLARGINE 100 UNITS/ML VIAL SC SCH (20:45)
--- NOTE | 2019-12-22 21:17 | Progress Note ---
DATE: 12/22/2019 SUBJECTIVE: Ms. Jefferson is a 54-year-old female, referred to me for evaluation of anemia. The patient has been transfused from 8.8 g to 10.1 g, however, she is still leukemoid with a white count of 19,670. Some improvement from 22,000 on 12/14. Immunology confirmed the clinical suspicion that she may have multiple myeloma with monoclonal gammopathy of IgM. Her BUN and creatinine remains reasonable today at 23 and 0.7. The microbiology so far has been reported no growth, especially the blood. Imaging consists of chest x-ray from 12/14, which was reported essentially negative except for small bilateral pleural effusions, bilateral lower lobe opacities highly suggestive of atelectasis. The patient of course is being treated for the wound by the Infectious Disease security consultant. I will confine myself to Hematology. No hematological intervention today. Thank you very much for allowing me to participate in management of this patient. MD SHERIDAN Hampton/JESUS /[id number]
[2019-12-23] VITALS (8 sets, daily range): BP systolic 118–134; BP diastolic 66–83
[2019-12-23] MEDS: VANCOMYCIN 250MG/5ML ORAL SOLN PO SCH ×2 (05:50)
[2019-12-23] MEDS: TRAMADOL HCL 50 MG TAB PO PRN (06:00)
[2019-12-23] MEDS: INSULIN LISPRO 100 UNIT/1 ML 3ML VIAL SQ SCH ×4 (07:30→21:41)
--- NOTE | 2019-12-23 07:32 | NUR ---
RECEIVED REPORT FROM CIRCUIT BOARD ASSEMBLER NURSE, PATIENT IS AWAKE IN BED, NO DISTRESS NOTED, BED LOW AND LOCKED, SIDE RAIL UPX2, CALL LIGHT WITHIN REACH.
[2019-12-23] MEDS: VANCOMYCIN 1GM/NS 250 ML 250 ML IV SCH (08:22)
[2019-12-23] MEDS: FUROSEMIDE INJ 10 MG/ML 4 ML VIAL IV SCH (08:22)
[2019-12-23] MEDS: ASPIRIN 81 MG CHEW TAB PO SCH (08:22)
[2019-12-23] MEDS: PRASUGREL 10 MG TAB PO SCH (08:22)
[2019-12-23] MEDS: VENLAFAXINE HCL 75 MG CAPCR PO SCH (08:22)
[2019-12-23] MEDS: METOPROLOL SUCCINATE 50 MG TAB XL PO SCH (08:23)
[2019-12-23] MEDS: COLLAGENASE OINTMENT 30 GM TUBE TP SCH (09:05)
[2019-12-23] MEDS ORDERED: ONDANSETRON HCL 4 MG ORAL DISINTEGRATING TAB PO PRN (11:30)
[2019-12-23 11:47] LABS: ANION GAP 9.2 mmol/L (8-16); BLOOD UREA NITROGEN 20 mg/dL (7-26); BUN/CREATININE RATIO 25 (6-25); CALCIUM 8.5 mg/dL (8.4-10.2); CARBON DIOXIDE 28 mmol/L (22-29); CHLORIDE 103 mmol/L (98-107); CREATININE, SERUM 0.79 mg/dL (0.57-1.11); EST GLOMERULAR FILTRATION RATE > 60 ML/MIN (60-); POTASSIUM 4.2 mmol/L (3.5-5.1); SODIUM 136 mmol/L (136-145)
[2019-12-23 11:57] LABS: GLUCOSE 49 mg/dL (74-118)
--- NOTE | 2019-12-23 12:30 | Progress Note ---
DATE: SUBJECTIVE: Ms. Jefferson is pleasant 54-year-old lady, who has infected left foot. The patient is seen and evaluated. REVIEW OF SYSTEMS: Feels better now that she knows she is going to [facility]. She is worried about going home and no one to take care of her. However, she is more relaxed since changing her discharge place. Otherwise, no nausea, no vomiting, no fever, no chills, no chest pain, no shortness of breath, no headache, no dysuria, no polyuria. PHYSICAL EXAMINATION: VITAL SIGNS: Temperature is 98.1, pulse is 88, respiration 20, and blood pressure 124/71. GENERAL: Alert and oriented, no acute distress. CV: S1 and S2. CHEST: Equal expansion. Clear to auscultation. No acute distress. ABDOMEN: Soft and nontender. No distention. Obese. EXTREMITIES: Left foot plantar wound pretty much covered the entire plantar surface of the foot from the bottom of the toes to the heel on local care. MEDICATIONS: Medication list reviewed and as far as Infectious Disease point of view, the patient is on vancomycin IV and vancomycin p.o. LABORATORY STUDIES: White blood cells of 19.67, hemoglobin 10.1, and platelet 215. No new BMP today. Toxicology, vancomycin trough was 11 on 12/20. Serology, C. difficile was negative on 12/14. MICROBIOLOGY: Blood culture 12/14, negative and wound culture was negative on 12/19/2019. RADIOLOGY STUDIES: No new radiology studies available. ASSESSMENT AND PLAN: 1. Infected left foot wound. 2. Cellulitis of left foot. 3. Diabetes mellitus. 4. Acute renal insufficiency. 5. Obesity. 6. Debility. 7. Hyperlipidemia. 8. Hypertension. 9. Chronic pain. 10. Leukocytosis. 11. Please refer to the chart for more information. Discussed with Dr. Feldman in details. The patient is on vancomycin IV and vancomycin p.o. Continue with the wound care. Await SNF. Continue with antibiotics at SNF. Discussed with the nurse. Currently, monitor the patient clinically and follow up with the labs. Dictated by Dwight Naranjo PA-C (Al) Amara Feldman MD /MODL /[id number]
--- NOTE | 2019-12-23 12:35 | NUR ---
Pt was denied for group home under managed MIGUEL at a facility. Called discharge CANDACE Quinonez at [phone] for assistance with placement/dc plan. Left message for callback.
--- NOTE | 2019-12-23 14:07 | NUR ---
SPOKE WITH ZANDRA FROM [facility] SHE STATES THAT PT DOES NOT NEED 24 HOUR NURSING CARE AND DOES NOT QUALIFY FOR REAL ESTATE INTERN PLACEMENT AND HER POLICY DOES NOT COVER THE SKILLED PORTION.
--- NOTE | 2019-12-23 14:15 | Progress Note ---
DATE: 12/23/2019 Cardiology Progress Note SUBJECTIVE: The patient denies chest pain or shortness of breath. OBJECTIVE: VITAL SIGNS: Temperature 98.1 degrees, pulse 88, respiratory rate 20, blood pressure 124/71, and oxygen saturation 96% on room air. GENERAL: Awake, alert, chronically ill-appearing woman, no acute distress. LUNGS: Decreased breath sounds at the bases, otherwise clear to auscultation. No wheezes or crackles. CARDIOVASCULAR: Normal rate, regular rhythm. No murmur. Normal S1, S2. ABDOMEN: Soft, nontender. EXTREMITIES: 1+ pitting edema bilaterally. CARDIAC MEDICATIONS: 1. Metoprolol succinate 50 mg p.o. daily. 2. Furosemide 40 mg IV daily. 3. Prasugrel 10 mg p.o. daily. 4. Aspirin 81 mg p.o. daily. 5. Atorvastatin 40 mg p.o. at bedtime. LABORATORY DATA: Troponin 0.014. TELEMETRY: Personally reviewed and interpreted revealing normal sinus rhythm. IMPRESSION: 1. Cellulitis and possible osteomyelitis of the left foot. 2. Sepsis, secondary to above. 3. Coronary artery disease, status post LAD PCI in May 2019. 4. Mvavn-tp-dgwuuip diastolic heart failure. 5. Diabetes mellitus. 6. Hypertension. 7. History of hepatitis C. 8. Acute kidney injury versus chronic kidney disease. RECOMMENDATIONS: Antibiotics per Infectious Disease. Wound care per Podiatry. Bilateral lower extremity arterial Doppler did not demonstrate evidence of hemodynamically significant stenosis. Monitor wound healing. If wound fails to improve, consider CTA of the abdomen and pelvis with lower extremity runoff for further evaluation. The patient ruled out for myocardial infarction with serial cardiac biomarkers. No further ischemic evaluation is indicated at this time. Continue dual antiplatelet therapy given her very recent stent. Continue current cardiac medications including IV diuresis. Monitor creatinine closely and replete electrolytes. Thank you for this consult. We will continue to follow. Albina Clement MD ABS/MODL /[id number]
--- NOTE | 2019-12-23 14:16 | NUR ---
CALLED RESIDENT ASSISTANT FROM INSURANCE [phone] LEFT MESSAGE TO RETURN CALL.
--- NOTE | 2019-12-23 15:25 | NUR ---
Called Dr. Tim DPM and received a readback telephone order for (L) LE NWB due to wound on plantar surface of foot. Addendum: 12/23/19 at 1550 by Larisa Esqueda PT Amended: Links added.
--- NOTE | 2019-12-23 16:24 | NUR ---
Received call from Chelsea Quinonez DC CM for [facility] ([phone]). CANDACE informed her that we were trying to get pt to facility under managed medicaid for skilled services. She states that pt does not have skilled benefits in her policy for managed medicaid. Option is to go home with home health services. States pt currently on service with [facility]. States that pt can call a pump servicer supervisor at [phone] to get a counter attendant for assistance at home. Also, they are able to set up transportation for pt if she needs it to go to/from wound clinic. Chelsea also informed CM that pt last got DME - a bipap - from [facility] and that [facility] is still in network with pt's insurance, if DME needed. CM called outpatient wound clinic. Was told that they could get pt in next Friday. CM will call them back with GA date. CM updated Dr. Shirley of above. He gave order to set up home health and abx per ID. CM spoke with pt and updated her. Informed her of denial for skilled services due to no benefits. Pt was upset states she's not able to care for herself and that she lives with a drunk ex and a fiance who has rheumatoid arthritis, who is unable to help. CM informed her that unfortunately we cannot place her at a facility if she does not have the benefit, but we can set her up with home health, outpatient wound care and DME. Also informed her that per GA CM, she can call to have provider set up. Informed pt that transportation can be set up for wound clinic appts if needed. Pt stated that she has transportation. Choice letter signed for [facility] and [facility] for HH/DME. Copy of choice letter given to pt. Signed copy placed in front of chart. CM called [facility] and spoke with Sarina. Verified that pt is currently on service with them. Pt was getting SN for wound care 2x/week and PT/OT was ordered, but they did not have a chance to evaluate her yet. CM asked about daily wound care. Sarina stated that they will try to at least get pt seen M-F, cannot guarantee the weekend. Referral for home health faxed to [phone] / Pending PT recommendation for DME.
[2019-12-23] MEDS: INSULIN GLARGINE 100 UNITS/ML VIAL SC SCH (21:41)
[2019-12-23] MEDS: ATORVASTATIN 40 MG TAB PO SCH (22:08)
[2019-12-23] MEDS: QUETIAPINE FUMARATE 25 MG TAB PO SCH (22:08)
[2019-12-24] VITALS (8 sets, daily range): BP systolic 106–136; BP diastolic 59–80
[2019-12-24 06:50] LABS: BASOPHILS # (AUTO) 0.1 (0.0-0.1); BASOPHILS % 0.4 % (0.0-1.0); EOSINOPHILS # (AUTO) 0.5 (0.0-0.4); EOSINOPHILS % 3.1 % (0.0-6.0); HEMATOCRIT 29.1 % (34.2-44.1); HEMOGLOBIN 9.5 g/dL (12.0-16.0); LYMPHOCYTES # (AUTO) 1.8 (1.0-3.2); LYMPHOCYTES % 10.8 % (18.0-39.1); MEAN CORPUSCULAR HEMOGLOBIN 27.9 pg (28-32); MEAN CORPUSCULAR HGB CONC 32.6 g/dL (31-35); MEAN CORPUSCULAR VOLUME 85.3 fL (81-99); MONOCYTES # (AUTO) 0.9 (0.2-0.8); MONOCYTES % 5.7 % (4.4-11.3); NEUTROPHILS # (AUTO) 13.1 (2.1-6.9); NEUTROPHILS % 79.5 % (38.7-80.0); PLATELET COUNT 226 x10e3/uL (140-360); RED BLOOD COUNT 3.41 x10e6/uL (3.6-5.1); RED CELL DISTRIBUTION WIDTH 15.2 % (11.7-14.4)
--- NOTE | 2019-12-24 07:11 | NUR ---
patient endorsed to next shift for continuity of care.
[2019-12-24] MEDS: INSULIN LISPRO 100 UNIT/1 ML 3ML VIAL SQ SCH ×5 (07:30→21:44)
--- NOTE | 2019-12-24 09:33 | Progress Note ---
DATE: 12/24/2019 SUBJECTIVE: This is a 54-year-old female, past medical history of type 2 diabetes, peripheral vascular disease, hypertension, coronary artery disease. She is being seen for left foot infection. She is postoperative day #4, left foot wound debridement. She relates improvement of pain to the left foot and left lower extremity. The patient denies any chest pain or shortness of breath. She also relates to not having any diarrhea over the past 2 to 3 days. Currently, denies nausea, vomiting, fever, chills, chest pain, or shortness of breath. PHYSICAL EXAMINATION: GENERAL: Alert and oriented x3, in no apparent distress. VITAL SIGNS: Today temperature is 97.9, heart rate 80, respiratory rate 20, blood pressure 110/69, pulse ox is 97% on room air. PROBLEM FOCUSED LOWER EXTREMITY PHYSICAL EXAM: Vascular, dorsalis pedis and posterior tibial pulses are faintly palpable. Capillary refill time is 3 to 4 seconds, all digits. Erythema, edema, and warmth to the left foot and anterior left siddiqui have improved. NEUROLOGIC: Sensation is diminished to light touch, however, pain on palpation is noted to the left foot wound. MUSCULOSKELETAL: Right arm amputation, otherwise deferred. No gross deformities are noted. DERMATOLOGIC: Large open ulceration is noted to the plantar aspect of the patient's left foot, which is atmospheric drier tender at this time. The wound extends from the level of the metatarsal head to the proximal aspect of the patient's left heel comprising of the entire foot from medial to lateral. The wound is approximately 50% fibrotic, 40% granular, and 10% necrotic. Improvement in periwound erythema, edema, and warmth. No fluctuance or abscess formation. The wound does not probe deep to tendon or bone. The wound is at the subcutaneous level and is a stage III ulcer. LABORATORY DATA: White blood count is 16.4, hemoglobin 9.5, hematocrit 29.1, platelet count 22.6. Neutrophil percentage of 79.5 and absolute neutrophil count is 13.1. ASSESSMENT: 1. Left foot stage III ulceration, cellulitis. 2. Type 2 diabetes, peripheral neuropathy, peripheral vascular disease, coronary artery disease, chronic kidney disease, and history of hepatitis C. The patient was seen and evaluated. Discussed condition and treatment options with the patient in detail. Dressing changes performed today with Santyl and saline wet-to-dry with 4x4s, ABD pads, Kerlix, and an Miguel wrap. The wound does appear to be improving with debridement and IV antibiotics. Wound cultures revealed no growth. At this time, no surgical intervention is recommended. We will continue local wound care with saline wet-to-dry. The patient is currently being managed by case management for disposition planning. Does not have LTAC benefits. She is attempting to be approved at a detention facility. It will be difficult for patient to be discharged to home as she needs to be nonweightbearing to the left lower extremity and has a partial right arm amputation. Walker, crutches, or wheelchair will be difficult for the patient to manage and relates that she has no help at home. The Podiatry Service will continue to monitor as an inpatient. If the patient remains here for the next few days, we will plan on a 2nd wound debridement one week after the first. The Podiatry Service will continue to monitor as inpatient. FREDERICK Clark/JESUS /[id number]
[2019-12-24] MEDS: PRASUGREL 10 MG TAB PO SCH (10:03)
[2019-12-24] MEDS: FUROSEMIDE INJ 10 MG/ML 4 ML VIAL IV SCH (10:03)
[2019-12-24] MEDS: ASPIRIN 81 MG CHEW TAB PO SCH (10:03)
[2019-12-24] MEDS: METOPROLOL SUCCINATE 50 MG TAB XL PO SCH (10:07)
[2019-12-24] MEDS: VENLAFAXINE HCL 75 MG CAPCR PO SCH (10:07)
[2019-12-24] MEDS: COLLAGENASE OINTMENT 30 GM TUBE TP SCH (10:11)
--- NOTE | 2019-12-24 10:37 | NUR ---
SPOKE WITH DR GALLAGHER WHOM STATES PT NOT SAFE TO RETURN HOME SPOKE WITH PT AND SHE IS WANTS ME TO TRY ANOTHER FACILITY, GOT APPROVAL TO TRY [facility], FAXED TO [phone]
[2019-12-24] MEDS: TRAMADOL HCL 50 MG TAB PO PRN ×2 (13:42→21:44)
--- NOTE | 2019-12-24 13:48 | Progress Note ---
DATE: 12/24/2019 Cardiology Progress Note SUBJECTIVE: The patient denies chest pain or shortness of breath. OBJECTIVE: VITAL SIGNS: Temperature 98 degrees, pulse 86, respiratory rate 18, blood pressure 121/59, oxygen saturation 94% on room air. GENERAL: Awake and alert, chronically ill-appearing woman, in no acute distress. LUNGS: Decreased breath sounds at the bases, otherwise clear to auscultation. No wheezes or crackles. CARDIOVASCULAR: Normal rate. Regular rhythm. No murmur. Normal S1 and S2. ABDOMEN: Soft and nontender. EXTREMITIES: 1+ pitting edema bilaterally. CARDIAC MEDICATIONS: 1. Metoprolol succinate 50 mg p.o. daily. 2. Furosemide 40 mg IV daily. 3. Prasugrel 10 mg p.o. daily. 4. Aspirin 81 mg p.o. daily. 5. Atorvastatin 40 mg p.o. at bedtime. LABORATORY DATA: WBC 16.43, hemoglobin 9.5, hematocrit 29.1, platelets 226. TELEMETRY: Personally reviewed and interpreted revealing normal sinus rhythm. IMPRESSION: 1. Cellulitis and possible osteomyelitis of the left foot. 2. Sepsis secondary to above. 3. Coronary artery disease, status post LAD PCI in May 2019. 4. Fszqq-wf-wdxzbig diastolic heart failure. 5. Diabetes mellitus. 6. Hypertension. 7. History of hepatitis C. 8. Acute kidney injury versus chronic kidney disease. RECOMMENDATIONS: Antibiotics per Infectious Disease. Wound care per Podiatry. Per Podiatry evaluation, wound is improving with debridement and IV antibiotics. Bilateral lower extremity arterial doppler did not reveal evidence of hemodynamically significant stenosis. We will follow wound healing. If wound fails to improve, consider CT of the abdomen and pelvis with lower extremity runoff for further evaluation. The patient ruled out for myocardial infarction with serial cardiac biomarkers. No further ischemic evaluation is indicated at this time. Continue dual antiplatelet therapy given her recent stent. Continue current cardiac medications including IV diuresis. Monitor creatinine closely and replete electrolytes. Thank you for this consult. We will continue to follow. Albina Clement MD ABS/MODL /[id number]
--- NOTE | 2019-12-24 16:35 | NUR ---
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 Chart reviewed. Pt is on contact isolation. It is recorded that pt has been consuming 75-100% of meals. Weight has been stable during admission per chart. Will continue to monitor. (12/16) Chart reviewed. Labs and meds reviewed. Pt is a 54 year old female admitted with chest pain to rule out acute MD and sepsis. Attempted to call patient over the phone, but she did not answer. It is recorded that pt has been consuming 75-100% of meals. Last recorded weight was 175 lbs in August 2017. Will continue to monitor unless consulted sooner Current Diet: 1800 kcal diabetic/cardiac diet Malnutrition Evaluation (12/17/19) The patient does not meet criteria for a specified degree of malnutrition at this time. Will re-evaluate at follow-up as appropriate. Diet Education Needs Assessment: RD is available for diet education as needed Nutrition Care Level: low Signed: Alena Padron, RD, LD
--- NOTE | 2019-12-24 16:38 | NUR ---
ASSISTED FACILITY DISCHARGE INFORMATION PATIENT HAS BEEN ACCEPTED TO: NAME: [facility] ADDRESS:[id number] ACCEPTING STOCK CUTTER:CR BOLANOS MD: ADELA ROOM: 150 NURSE CALL REPORT TO: [phone] IMM SIGNED AND OBTAINED (if applicable): NA THE FOLLOWING DOCUMENTS MUST ACCOMPANY PATIENT FOR TRANSFER: COPIED CHART:PACKET
--- NOTE | 2019-12-24 16:45 | NUR ---
[address]ALLAGHER, NO OK WITH PT BEING DISCHARGED TODAY, NEEDS ALL SPECIALISTS TO CONFIRM WITH DISCHARGE AND THAT ITS OK FOR PT TO GO TO A FACILITY THIS WEEKEND
--- NOTE | 2019-12-24 19:01 | NUR ---
BEDSIDE REPORT AND CARE TO MARICRUZ MCKEON
--- NOTE | 2019-12-24 19:32 | NUR ---
Received bedside report from day nurse. Patient awake and resting in bed, no s/s of distress at this time. Bed locked and in low position, side rails up x3, alarm on, call light placed within reach. All safety measures in place. Will continue to monitor.
[2019-12-24] MEDS: INSULIN GLARGINE 100 UNITS/ML VIAL SC SCH (21:44)
[2019-12-24] MEDS: ATORVASTATIN 40 MG TAB PO SCH (21:44)
[2019-12-24] MEDS: QUETIAPINE FUMARATE 25 MG TAB PO SCH (21:44)
[2019-12-25] VITALS: BP 129/70
[2019-12-25 04:00] VITALS: BP 114/73
[2019-12-25] MEDS: TRAMADOL HCL 50 MG TAB PO PRN (04:43)
--- NOTE | 2019-12-25 07:06 | NUR ---
Bedside report given to day nurse. Patient awake and resting in bed, no s/s of distress at this time. All safety measures in place.
[2019-12-25 07:59] VITALS: BP 99/56
[2019-12-25 08:13] VITALS: BP 99/56
[2019-12-25] MEDS: VENLAFAXINE HCL 75 MG CAPCR PO SCH (08:25)
[2019-12-25] MEDS: PRASUGREL 10 MG TAB PO SCH (08:25)
[2019-12-25] MEDS: ASPIRIN 81 MG CHEW TAB PO SCH (08:25)
[2019-12-25] MEDS: FUROSEMIDE INJ 10 MG/ML 4 ML VIAL IV SCH (08:25)
[2019-12-25] MEDS: METOPROLOL SUCCINATE 50 MG TAB XL PO SCH (08:25)
[2019-12-25] MEDS: INSULIN LISPRO 100 UNIT/1 ML 3ML VIAL SQ SCH ×2 (08:26→12:01)
[2019-12-25] MEDS ORDERED: COLLAGENASE OINTMENT 30 GM TUBE TP SCH (09:00)
[2019-12-25] MEDS ORDERED: COLLAGENASE 5 GM TUBE TP SCH (09:00)
--- NOTE | 2019-12-25 10:01 | Progress Note ---
DATE: 12/25/2019 SUBJECTIVE: I did alert Dr. Shirley that she has monoclonal gammopathy. The patient has IgG. This is highly suggestive of multiple myeloma. I will be more than happy to see her as an outpatient in my office later whenever she would be referred to me for a bone marrow aspirate and biopsy and further treatment depending on the bone marrow. Thank you very much for allowing me to participate in the management of this patient during this hospitalization. The patient is being transferred to a skilled care nursing facility today. Hopefully, the attending will call and make an appointment at my office. MD SHERIDAN Hampton/JESUS /[id number]
--- NOTE | 2019-12-25 10:16 | Progress Note ---
DATE: Cardiology Progress Note SUBJECTIVE: The patient reports one occurrence of chest pain yesterday. She states that this pain has not occurred again, however, this pain is described to be substernal and it happened while sleeping. Denies any shortness of breath associated with pain. Denies any chest pain at this moment, palpitations, or shortness of breath. OBJECTIVE: VITAL SIGNS: Temperature 97.7, pulse 80, respiratory rate 18, blood pressure 99/56, oxygen saturation 94% on room air. GENERAL: Alert and oriented x3. Resting comfortably in bed, does not appear to be in any acute distress. NECK: Supple. No JVD noted. LUNGS: Diminished breath sounds throughout with crackles noted in the posterior lower bases. CARDIOVASCULAR: Normal rate and rhythm. No murmurs, no gallops noted. ABDOMEN: Soft, nontender. EXTREMITIES: Lower extremity; 2+ pitting edema left lower extremity with a wound covered with dressing on the left lower extremity. 1+ pitting edema to the right lower extremity. CARDIOVASCULAR MEDICATIONS: 1. Lasix 40 mg IV daily. 2. Effient 10 mg daily. 3. Aspirin 81 mg p.o. daily. 4. Metoprolol 50 mg p.o. daily. 5. Atorvastatin 40 mg p.o. at bedtime. LABORATORY DATA: No new labs today. TELEMETRY: Sinus rhythm with bundle branch block. IMPRESSION: 1. Cellulitis with possible osteomyelitis of the left foot. 2. Sepsis secondary to cellulitis. 3. Coronary artery disease, status post left anterior descending percutaneous coronary intervention in May of 2019. 4. Cpnsb-aq-xahjmjx diastolic heart failure. 5. Diabetes mellitus. 6. Hypertension. 7. History of hepatitis C. 8. Acute kidney injury versus chronic kidney injury. 9. Atypical chest pain. RECOMMENDATION: Repeat troponins this morning. Continue antibiotics per Infectious Disease. Continue wound care per Podiatry. Bilateral lower extremity arterial Doppler did not reveal evidence of hemodynamically significant stenosis. We will continue to follow wound healing. Continue medical therapy at this time. If wound fails to improve, consider CT of the abdomen and pelvis with lower extremity runoff for further evaluation. Continue dual anti- platelet therapy given recent stent in May of 2019. Continue diuresis. Monitor creatinine and also electrolytes closely. Dictated by Avani Chris, JESSI MD BK Christianson/MODL /[id number]
--- NOTE | 2019-12-25 11:15 | NUR ---
Spoke to patient about being transferred today to [facility] , room 150A. Patient is in agreement with transfer and understands plan of care at this time. She has no questions at this time.
[2019-12-25 11:31] VITALS: BP 105/68
--- NOTE | 2019-12-25 11:31 | Discharge Summary ---
PRIMARY CARE PHYSICIAN: Salazar Vaz MD CONSULTANTS: 1. Abhi Bradley MD. 2. Abhi Dumont DPM. 3. Waldo Strange MD. 4. Gage Bonilla MD. FINAL DIAGNOSES: 1. Left foot open wound infection associated with sepsis. 2. Left foot diabetic foot ulcer with infection, necrotic tissue, gangrenous due to infection associated with uncontrolled diabetes. 3. Status post sepsis. 4. Symptomatic anemia, shortness of breath, tachycardia, status post 2 units blood transfusion. Fecal occult blood was negative. Chronic anemia associated with blunt anemia. 5. Uncontrolled diabetes. 6. Atherosclerotic coronary artery disease with previous two stent history. 7. Noncompliance with chronic medical treatment. SUMMARY: The patient is a [id number], recently discharged from [facility] with left foot infection. Apparently, the patient was home, not sure what happened, poor historian when she presented, but basically, she did not take any of her medication. She came in with left foot infection with necrotic tissue along with redness all the way up to the mid lower extremity below the knee area. The patient also had very uncontrolled diabetes as well. The patient was not taking her insulin. She stated that she was not able to get medication and able to get the care at home. During hospitalization, the patient has had her left foot debridement. She also was placed on antibiotics. Laboratory; WBC was 22,000, on admission, improving. Microbiology, the patient's blood culture was negative. The patient completed a course of antibiotics through Dr. Feldman's consultation. The patient's hemoglobin and hematocrit now are 9.5 and 29.1. She remained afebrile. She is doing much better overall. Left foot improving. Wound care ongoing. The patient is unable to go home due to not getting the care, therefore, placement to the halfway is established. The patient will be discharged today. Antibiotics will be already discontinued per Infectious Disease. The patient's chronic anemia is stable. She will continue with her left foot wound care. She will need to follow up with Dr. Dumont, next week. The patient will continue with her other medication. Hemoglobin A1c on admission was 10.8. Blood sugar now is 131. She will continue with her insulin treatment. The patient is otherwise stable. Follow up as instructed. Family physician within a week, but the patient will also follow up with Dr. Abhi Dumont, Podiatry for continuation of foot care. MD AAMIR Palacios/JESUS /[id number]
--- NOTE | 2019-12-25 11:33 | NUR ---
Report called to Luz Marina at [facility] Patient is being transferred to room 150A
--- NOTE | 2019-12-25 12:10 | NUR ---
PICC line removed from RUE with tip intact per MD orders.
--- NOTE | 2019-12-25 12:49 | NUR ---
SUBJECTIVE: Ms. Jefferson is pleasant 54-year-old lady, who has infected left foot. The patient is seen and evaluated. REVIEW OF SYSTEMS: Positive: Fatigue Negative: ROS 14 point discussed and negative unless otherwise noted PHYSICAL EXAMINATION: VITAL SIGNS: Temperature is 98.1, pulse is 88, respiration 20, and blood pressure 124/71. GENERAL: Alert and oriented, no acute distress. CV: S1 and S2. CHEST: Equal expansion. Clear to auscultation. No acute distress. ABDOMEN: Soft and nontender. No distention. Obese. EXTREMITIES: Left foot plantar wound pretty much covered the entire plantar surface of the foot from the bottom of the toes to the heel on local care. MEDICATIONS: Medication list reviewed and as far as Infectious Disease point of view, the patient is on vancomycin IV and vancomycin p.o. LABORATORY STUDIES: White blood cells of 19.67, hemoglobin 10.1, and platelet 215. No new BMP today. Toxicology, vancomycin trough was 11 on 12/20. Serology, C. difficile was negative on 12/14. MICROBIOLOGY: Blood culture 12/14, negative and wound culture was negative on 12/19/2019. RADIOLOGY STUDIES: No new radiology studies available. ASSESSMENT 1. Infected left foot wound. 2. Cellulitis of left foot. 3. Diabetes mellitus. 4. Acute renal insufficiency. 5. Obesity. 6. Debility. 7. Hyperlipidemia. 8. Hypertension. 9. Chronic pain. 10. Leukocytosis. 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 Doxadelfo and Emmanuelro p.o. upon discharge. See me in 2 weeks in the office.
== END 2019-12-25 13:11 | DRG 853 ==
LOC: ER 07:34 → ERHOLD 12:56 → ICU 14:21 → MED/SURG2 12-16 11:49
PROVIDERS: ADMIT Internal Medicine; ATTEND Internal Medicine
PROC: 02HV33Z Insertion of Infusion Device into Superior Vena Cava, Percutaneous Approach (ICD-10-PCS; principal; 2019-12-15)
PROC: 30243N1 Transfusion of Nonautologous Red Blood Cells into Central Vein, Percutaneous Approach (ICD-10-PCS; 2019-12-15)
PROC: 0JBR0ZZ Excision of Left Foot Subcutaneous Tissue and Fascia, Open Approach (ICD-10-PCS; 2019-12-20)
DX: A41.9 Sepsis, unspecified organism (principal); I50.33 Acute on chronic diastolic (congestive) heart failure; L03.116 Cellulitis of left lower limb; L97.528 Non-pressure chronic ulcer of other part of left foot with other specified severity; M86.8X7 Other osteomyelitis, ankle and foot; E11.52 Type 2 diabetes mellitus with diabetic peripheral angiopathy with gangrene; I96 Gangrene, not elsewhere classified; N17.9 Acute kidney failure, unspecified; E11.628 Type 2 diabetes mellitus with other skin complications; Z79.4 Long term (current) use of insulin; E11.621 Type 2 diabetes mellitus with foot ulcer; F32.9 Major depressive disorder, single episode, unspecified; F41.9 Anxiety disorder, unspecified; R26.9 Unspecified abnormalities of gait and mobility; I25.10 Atherosclerotic heart disease of native coronary artery without angina pectoris; Z95.5 Presence of coronary angioplasty implant and graft; Z86.718 Personal history of other venous thrombosis and embolism; Z79.01 Long term (current) use of anticoagulants; E11.69 Type 2 diabetes mellitus with other specified complication; Z91.19 Patient's noncompliance with other medical treatment and regimen; E11.22 Type 2 diabetes mellitus with diabetic chronic kidney disease; Z86.19 Personal history of other infectious and parasitic diseases; Z89.201 Acquired absence of right upper limb, unspecified level; G89.29 Other chronic pain; E66.9 Obesity, unspecified; Z68.28 Body mass index [BMI] 28.0-28.9, adult; R19.7 Diarrhea, unspecified; D63.8 Anemia in other chronic diseases classified elsewhere; E87.5 Hyperkalemia; E77.8 Other disorders of glycoprotein metabolism; K76.0 Fatty (change of) liver, not elsewhere classified; R16.1 Splenomegaly, not elsewhere classified; E88.09 Other disorders of plasma-protein metabolism, not elsewhere classified; D72.823 Leukemoid reaction; I11.0 Hypertensive heart disease with heart failure; E86.0 Dehydration
CPT/HCPCS: 36415; 36569; 70450; 70486; 71045; 71260; 72125; 74174; 80048; 80053; 80202; 81001; 82140; 82270; 82550; 82553; 82607; 82746; 82784; 82948; 83036; 83540; 83605; 83735; 83880; 84100; 84443; 84466; 84484; 85025; 85300; 85610; 85730; 86376; 86651; 86652; 86653; 86654; 86850; 86900; 86920; 87040; 87045; 87071; 87205; 87493; 93005; 93306; 93925; 96372; 97139; 99251; 99285; J1100; J1200; J1815; J1940; J2001; J2270; J2405; J2543; J3370; J7040; J7050; P9016; Q9967

== ENCOUNTER 2020-02-09 00:03 | Observation (INO) | payer OTHER ==
[~2020-02-09] VITALS: Ht 162.6 cm; Wt 73.9 kg
[2020-02-09] MEDS ORDERED: SODIUM CHLORIDE 0.9% 1000ML 1,000 ML IV STA (00:07)
--- OUTSIDE RECORDS SUMMARY | 2020-02-09 00:09 | XMS REPORT | Continuity of Care Document ---
Author Author [facility] t Organization [facility] Address 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 [id number] 2017 00:00:00 2018 00:00:00 [facility] Ppo [id number] 2015 00:00:00 [facility] Problems This patient has no known problems. Allergies, Adverse Reactions, Alerts Allergy Name Allergy Type Status Severity Reaction(s) Onset Date Inacti ve Date Treating Clinician Comments Source Hydrocodone Propensity to adverse reactions Active Mild SIC K 2018-11-06 00:00:00 [facility] Acetaminophen Propensity to adverse reactions Active Mild S ICK 2018-11-06 00:00:00 [facility] hydrocodone DA Active MO 2017-07-15 00:00:00 [facility] Medications Ordered Medication Name Filled Medication Name Start Date Stop Da te Current Medication? Ordering Clinician Indication Dosage Frequency Signature (SIG) Comments Components Source Levamir Levamir Yes 10 Twice A Day [facility] Lisinopril 10 Mg Tablet Lisinopril 10 Mg Tablet Yes 40 Daily [facility] Quetiapine Fumarate 25 Mg Tablet Quetiapine Fumarate 25 Mg Tablet Yes 25 Twice A Day [facility] Spironolactone 100 Mg Tablet Spironolactone 100 Mg Tablet Y es 100 Daily [facility] Venlafaxine Hcl (Venlafaxine Hcl Er) 75 Mg Tab.er.24 V enlafaxine Hcl (Venlafaxine Hcl Er) 75 Mg Tab.er.24 Yes 75 D aily [facility] Hydrocodone Bit/Acetaminophen (Hydrocodo ne-Apap 10-325 Tablet) 1 Each Tablet, 10 Mg Oral Hydrocodone Bit/Acetaminophen (Hydrocodo ne-Apap 10-325 Tablet) 1 Each Tablet, 10 Mg Oral 2017-05-04 00:00:00 No 10 As Ne eded [facility] Insulin Aspart (Novolog) 100 Unit/1 Ml Cartridge, 10 U nits Sub-Q Insulin Aspart (Novolog) 100 Unit/1 Ml Cartridge, 10 Units Sub-Q 2017-05-04 00:00:00 No 10 Three Times A Day [facility] Insulin Lispro (Humalog) 100 Unit/1 Ml Vial, 10 Units Subcutaneously Insulin Lispro (Humalog) 100 Unit/1 Ml Vial, 10 Units Subcutaneously 2017-05-04 00:00:00 No 10 Three Times Daily With Meals [facility] Trazodone Hcl 100 Mg Tablet, 100 Mg Oral Trazodone Hcl 100 Mg Tablet, 100 Mg Oral 2017-05-04 00:00:00 No 100 Daily [facility] Cefuroxime Axetil (Cefuroxime) 250 Mg Tablet, 250 Mg O ral Cefuroxime Axetil (Cefuroxime) 250 Mg Tablet, 250 Mg Oral 2013-11-08 00:00:00 No 250 Twice A Day [facility] Duloxetine Hcl (Cymbalta) 60 Mg Capsule.dr, 60 Mg Oral Duloxetine Hcl (Cymbalta) 60 Mg Capsule.dr, 60 Mg Oral 2013-11-08 00:00:00 No 60 Every Morning [facility] Lactulose (Kristalose) 20 Gm Packet, 20 G Oral Lactulo se (Kristalose) 20 Gm Packet, 20 G Oral 2013-11-08 00:00:00 No 20 Twice A Day [facility] Lorazepam (Ativan) 1 Mg Tablet, 0.5 Mg Oral Lorazepam (Ativan) 1 Mg Tablet, 0.5 Mg Oral 2013-11-08 00:00:00 No .5 Four Times Daily [facility] Phenazopyridine Hcl (Pyridium) 200 Mg Tablet, 200 Mg O ral Phenazopyridine Hcl (Pyridium) 200 Mg Tablet, 200 Mg Oral 2013-11-08 00:00:00 No 200 Three Times A Day [facility] Phentermine Hcl 37.5 Mg Capsule, 37.5 Mg Oral Phenterm ine Hcl 37.5 Mg Capsule, 37.5 Mg Oral 2013-11-08 00:00:00 No 37.5 Every Morni ng [facility] Fluoxetine , Fluoxetine , 2012-11-12 00:00:00 [facility] Pregabalin (Lyrica) 150 Mg Capsule, Mg Oral Pregabali n (Lyrica) 150 Mg Capsule, Mg Oral 2012-11-12 00:00:00 No Twice A Day [facility] Insulin Glargine,Hum.rec.anlog (Lantus) 100 Unit/1 Ml Vial, Insulin Glargine,Hum.rec.anlog (Lantus) 100 Unit/1 Ml Vial, 2012-11-10 00:0 0:00 [facility] Pantoprazole Sodium (Protonix) 40 Mg Suspdr.pkt, Panto prazole Sodium (Protonix) 40 Mg Suspdr.pkt, 2012-11-10 00:00:00 [facility] Trimethoprim/Sulfamethoxazole (Bactrim Ds) 1 Ea Tab, Trimethoprim/Sulfamethoxazole (Bactrim Ds) 1 Ea Tab, 2011-06-19 00: 00:00 [facility] Procedures This patient has no known procedures. Encounters Start Date/Time End Date/Time Encounter Type Admission Type [facility] Facility Care Department Encounter ID Source 2019-11-28 11:31:00 2019-11-28 11:31:00 Emergency E [id number] 2019 12:57:00 2019 12:57:00 Emergency E [facility] [id number] 2019-05-10 00:32:00 2019-05-10 00:32:00 Outpatient E [facility] CAR [id number] 2019-02-25 20:37:00 2019-02-23 17:02:00 Inpatient E [facility] MED [id number] 2018-11-06 16:43:00 2018-11-06 23:06:00 Departed Emergency Room [facility] [id number] [facility] Results Test Description Test Time Test Comments Results Result Comments Source CT CHEST W 2019-12-15 13:46:00 [facility] [address] [address] Patient Name: VERONICA GREENWOOD MR #: [id number] : 1965 Age/Sex: 54/F Req #: [id number] Adm Physician: PILLO GALLAGHER MD Ordered by: SULEMAN SANTIAGO Report #: [id number] Location: [facility] Room/Bed: [place] [address] Procedure: [id number] CT/CT CHEST W Exam Date: 12/15/19 Exam Time: 1315 REPORT STATUS: Signed EXAM: CT Chest WITH contrast- Pulmonary Embolism Protocol INDICATION: Chest pain, DVT COMPARISON: CTA abdomen and pelvis of the same day. TECHNIQUE: Chest was scanned utilizing a multidetector helical scanner from the lung apex through the level of the diaphragm after administration of IV contrast. Thin section reconstructions were obtained with special concentration on the pulmonary arteries. Coronal and sagittal reformations were obtained. Pulmonary embolism protocol was performed. IV CONTRAST: 100 cc of Isovue 370 RADIATION DOSE: Total DLP: 2867 mGy*cm Dose modulation, iterative reconstruction, and/or weight based adjustment of the mA/kV was utilized to reduce the radiation dose to as low as reasonably achievable. COMPLICATIONS: None FINDINGS: LINES/ TUBES: None. PULMONARY ARTERIES: No filling defect is identified within the pulmonary arteries to the segmental level. The subsegmental pulmonary arteries are not well opacified. Main pulmonary artery measures 2.6 cm in diameter. LUNGS AND AIRWAYS: The central airways are patent. Dependent bibasilar lower lobe opacities most compatible with subsegmental atelectasis. Mild smooth interlobular septal thickening consistent with pulmonary interstitial edema. No focal pneumonia. PLEURA: Moderate bilateral pleural effusions. No pneumothorax. HEART AND MEDIASTINUM: The thyroid gland is normal. No mediastinal, hilar or axillary lymphadenopathy. The heart is normal in size. No right heart strain. There is no pericardial effusion. Atherosclerotic calcifications involve the LAD, circumflex, and thoracic aorta.. UPPER ABDOMEN: Please see the separate dictation for the concurrently performed abdomen and pelvis CT for a detailed discussion of intra-abdominal findings. BONES: No acute osseous injury. No suspicious lytic or blastic lesions. SOFT TISSUES: Unremarkable. IMPRESSION: No pulmonary embolism. Mild pulmonary interstitial edema. Moderate bilateral pleural effusions. Bibasilar dependent subsegmental atelectasis. Signed by: Steve Mueller MD on 12/15/2019 1:51 PM Dictated By: STEVE MUELLER MD 1351 Transcribed By: JENIFFER on 12/15/19 1351 COPY TO: SULEMAN SANTIAGO CTA ABD/PELVIS 2019-12-15 13:34:00 [place] [address] Patient Name: VERONICA GREENWOOD MR #: [id number] : 1965 Age/Sex: 54/F Req #: [id number] Adm Physician: PILLO GALLAGHER MD Ordered by: SULEMAN SANTIAGO Report #: [id number] Location: [facility] Room/Bed: [place] [address] Procedure: [id number] CT/CTA ABD/PELVIS Exam Date: 12/15/19 Exam Time: 1315 REPORT STATUS: Signed EXAM: CTA Abdomen and Pelvis WITHOUT and WITH intravenous contrast - GI bleed protocol INDICATION: Abdominal pain, GI bleeding COMPARISON: None. TECHNIQUE: Abdomen and pelvis were scanned utilizing a multidetector helical scanner from the lung base to the pubic symphysis before and after administration of IV contrast. Coronal and sagittal reformations were obtained. GI bleed protocol was used. Scan was performed prior to contrast administration and then during arterial and venous delay phases. IV CONTRAST: 100 mL of Isovue 370 ORAL CONTRAST: Water COMPLICATIONS: None RADIATION DOSE: Total DLP: 28 67 mGy*cm Dose modulation, iterative reconstruction, and/or weight based adjustment of the mA/kV was utilized to reduce the radiation dose to as low as reasonably achievable. FINDINGS: LOWER THORAX: Right and left lower lobe dependent subsegmental atelectasis. Moderate bilateral pleural effusions. HEPATOBILIARY: Diffuse hepatic steatosis. No focal liver lesion. No biliary ductal dilation. Status post cholecystectomy. SPLEEN: Mild splenomegaly to 14 cm. PANCREAS: No focal masses or ductal dilatation. ADRENALS: Low-attenuation 1.8 cm right adrenal nodule, likely a benign adenoma. KIDNEYS/URETERS: No hydronephrosis or renal calculi. Bilateral subcentimeter simple renal cysts. PELVIC ORGANS/BLADDER: Status post hysterectomy. PERITONEUM / RETROPERITONEUM: No free air or fluid. LYMPH NODES: No lymphadenopathy. VESSELS: No evidence of active arterial extravasation of contrast in the bowel. Moderate atherosclerotic calcifications of the nonaneu rysmal abdominal aorta and major branches. No abdominal aortic aneurysm. The mesenteric vessels are widely patent. Single right and single left renal arteries are patent. GI TRACT: No abnormal bowel thickening. No bowel obstruction. BONES AND SOFT TISSUES: No acute osseous injury. Chronic L2 and L3 compression fractures. No suspicious lytic or blastic lesions. IMPRESSION: No evidence of active arterial gastrointestinal bleeding. Diffuse hepatic steatosis. Splenomegaly. Signed by: Steve Mueller MD on 12/15/2019 1:46 PM Dictated By: STEVE MUELLER MD 1346 Transcribed By: JENIFFER on 12/15/196 COPY TO: SULEMAN SANTIAGO CHEST XRAY LINE PLACEMENT 2019-12-15 12:14:00 [place] [address] Patient Name: VERONICA GREENWOOD MR #: [id number] : 1965 Age/Sex: 54/F Req #: [id number] Adm Physician: Ordered by: SULEMAN SANTIAGO Report #: [id number] Location: ER Room/Bed: Procedure: [id number] DX/CHEST XRAY LINE PLACEMENT Exam Date: 12/15/19 Exam Time: 1204 REPORT STATUS: Signed EXAMINATION: CHEST XRAY LINE PLACEMENT INDICATION: Line placement COMPARISON: Chest radiograph 12/15/2019 FINDINGS: LINES/TUBES:Right PICC line terminates in the superior vena cava. EKG leads overlie the chest. LUNGS:The lungs are moderately inflated. Right basilar opacity silhouettes the right hemidiaphragm. There is perihilar fullness and indistinctness of the pulmonary vasculature. PLEURA:Unchanged right pleural effusion. Small left pleural effusion. MEDIASTINUM:The cardiomediastinal silhouette appears normal in size and shape. BONES/SOFT TISSUES:No acute osseous injury. ABDOMEN:No free air under the diaphragm. IMPRESSION: Unchanged mild pulmonary edema and bilateral pleural effusions. Right basilar opacity, most likely subsegmental atelectasis. Signed by: Steve Mueller MD on 12/15/2019 12:16 PM Dictated By: STEVE MUELLER MD 1216 Transcribed By: JENIFFER on 12/15/196 COPY TO: SULEMAN SANTIAGO CT CERVICAL SPINE WO 2019-12-15 11:06:00 [place] [address] Patient Name: VERONICA GREENWOOD MR #: [id number] : 1965 Age/Sex: 54/F Req #: [id number] Adm Physician: Ordered by: SULEMAN SANTIAGO Report #: [id number] Location: ER Room/Bed: Procedure: [id number] CT/CT CERVICAL SPINE WO Exam Date: Exam Time: REPORT STATUS: Signed Examination: CT CERVICAL SPINE WO CONTRAST HISTORY:Neck pain and injury after fall. COMPARISON:None. TECHNIQUE: Multidetector helical axial images were obtained without contrast from the foramen magnum to T1. Coronal and sagittal reformatted images were done. Bone and soft tissue windows were evaluated. Dose modulation, iterative reconstruction, and/or weight based adjustment of the mA/kV was utilized to reduce the radiation dose to as low as reasonably achievable. FINDINGS: Alignment:Normal alignment and lordosis. Vertebrae: Normal height and density. No acute fracture or neoplasm. Anterior osteophytes from C2 through C7. Disc space heights: Severely narrowed at C5-C6 and C6-C7 with chronic endplate irregularity at C6-C7 which could be from degenerative change or prior infection. Caliber of spinal canal: Developmentally normal. Posterior fossa and craniocervical junction: Foramen magnum patent. No Chiari 1 malformation. Soft tissues: No abnormality. Degenerative changes: Diffuse disc osteophyte at C5-C6 causes mild bilateral foraminal narrowing. Asymmetric to the left disc osteophyte at C6-C7 with moderate left foraminal narrowing. No right foraminal narrowing. The remaining levels demonstrate no disc herniation or canal stenosis. Visualized lung apices: No abnormalities. IMPRESSION: 1. No acute abnormalities. 2. Degenerative change as above. Signed by: Dr. Janis Goetz M.D. on 12/15/2019 11:12 AM Dictated By: JANIS BLAKE MD 11 Transcribed By: JENIFFER on 12/15/191111 COPY TO: SULEMAN SANTIAGO CT MAXIO FAC/PARANAS WO 2019-12-15 10:57:00 [place] [address] Patient Name: VERONICA GREENWOOD MR #: [id number] : 1965 Age/Sex: 54/F Req #: [id number] Adm Physician: Ordered by: SULEMAN SANTIAGO Report #: [id number] Location: ER Room/Bed: Procedure: [id number] CT/CT MAXIO FAC/PARANAS WO Exam Date: Exam Time: REPORT STATUS: Signed Examination: CT Face without Contrast History:Fall with face injury. Comparison studies: None Technique: Axial images were obtained through the maxillofacial region. Coronal and sagittal reconstructions obtained from the axial data. Dose modulation, iterative reconstruction, and/or weight based adjustment of the mA/kV was utilized to reduce the radiation dose to as low as reasonably achievable. Intravenous contrast: None Findings: Soft tissues: No abnormalities. Bones: No acute fractures or bony abnormalities. Chronic left orbital floor fracture with wide open fracture and smooth fragment. The left inferior rectus muscle is rounded in morphology and is mildly displaced into the fracture site. Orbits: Globes: Intact Extra or intraconal abnormalities: None. Paranasal sinuses: Clear. Nasal cavity: Patent. Rightward septal deviation. IMPRESSION: 1. No acute facial abnormality. 2. Chronic left orbital floor fracture with mild inferior displacement of the left inferior rectus muscle mild as detailed. Nonemergent opthalmology consult is suggested. Signed by: Dr. Janis Goetz M.D. on 12/15/2019 11:05 AM Dictated By: JANIS BLAKE MD 04 Transcribed By: JENIFFER on 12/15/191104 COPY TO: SULEMAN SANTIAGO CT BRAIN WO 2019-12-15 10:53:00 [place] [address] Patient Name: VERONICA GREENWOOD MR #: [id number] : 1965 Age/Sex: 54/F Req #: [id number] Adm Physician: Ordered by: SULEMAN SANTIAGO Report #: [id number] Location: ER Room/Bed: Procedure: [id number] CT/CT BRAIN WO Exam Date: Exam Time: REPORT STATUS: Signed Examination: CT BRAIN WO CONTRAST History:Fall 2 days ago with head injury Comparison studies:None Technique: Axial images were obtained from the skull base to the vertex. Coronal and sagittal images reconstructed from the axial data. Dose modulation, iterative reconstruction, and/or weight based adjustment of the mA/kV was utilized to reduce the radiation dose to as low as reasonably achievable. Intravenous contrast: None Findings: Scalp: No abnormalities. Bones: No fractures, blastic or lytic lesions. Brain sulci: Generalized volume loss for age. Ventricles: No hydrocephalus. Extra-axial space: No abnormalities. Parenchyma: No masses, hemorrhage, or acute or chronic cortical based vascular insults.. Sellar/suprasellar region: No abnormalities. Craniocervical junction: Patent foramen magnum. No Chiari one malformation. Incidental findings: None. Impression: No acute intracranial abnormalities. Generalized volume loss for age. Signed by: Dr. Janis Goetz M.D. on 12/15/2019 10:57 AM Dictated By: JANIS BLAKE MD 105 Transcribed By: JENIFFER on 12/15/19 105 COPY TO: SULEMAN SANTIAGO CHEST SINGLE (PORTABLE) 2019-12-15 09:19:00 [place] [address] Patient Name: VERONICA GREENWOOD MR #: [id number] : 1965 Age/Sex: 54/F Req #: [id number] Adm Physician: Ordered by: SULEMAN SANTIAGO Report #: [id number] Location: ER Room/Bed: Procedure: [id number] DX/CHEST SINGLE (PORTABLE) Exam Date: 12/15/19 Exam Time: 0827 REPORT STATUS: Signed Examination: Single AP view of the chest. COMPARISON: 08/09/2017 INDICATION: Chest pain DISCUSSION: Small bilateral pleural effusions right larger than left with adjacent lower lobe opacities, likely atelectasis. Normal heart size with prominence of the central pulmonary vasculature. No acute osseous abnormalities. IMPRESSION: Pulmonary venous congestion with small bilateral pleural effusions and bilateral lower lobe opacities, likely atelectasis. Signed by: Dr. Andi Schultz M.D. on 12/15/2019 9:22 AM Dictated By: ANDI SCHULTZ MD 1 Transcribed By: JENIFFER on 12/15/19921 COPY TO: SANTIAGOSULEMAN MARCIA US ABDOMEN COMPLETE 2019-08-09 14:40:00 [place] [address] Patient Name: VERONICA GREENWOOD MR #: [id number] : 1965 Age/Sex: 54/F Req #: [id number] Adm Physician: Ordered by: NEEL DAO MD Report #: [id number] Location: Room/Bed: Procedure: [id number] US/US ABDOMEN COMPLETE Exam Date: 08/09/19 Exam Time: 1313 REPORT STATUS: Signed HISTORY : Cirrhosis COMPARISON : 01/03/2012 COMMENT : Complete ultrasound examination of the abdomen was performed. The liver is normal in size measuring 12 cm in length along the right midclavicular line and heterogeneous in echo-texture without evidence of a focal mass. The gallbladder is surgically absent.. The biliary tract is within normal limits with the common bile duct measuring 5 mm in maximum diameter. The visualized portions of the pancreas are within normal limits. The spleen is normal in size and echo-texture measuring 12.0 cm. The right kidney measures 10.5 cm and the left kidney 10.7 cm in maximum size. There is a 2.8 x 1.4 x 2.4 cm cyst arising from the lower pole of the left kidney. The portal vein measures to a maximum of 0.8 cm in diameter. There is no ascites or pleural effusion. The visualized inferior vena cava, hepatic veins and abdominal aorta are within normal limits. IMPRESSION : 1. Cirrhotic morphology of the liver. No focal hepatic mass. 2. Status post estephania cystectomy. 3. Left renal cyst. Signed by: Hany Juarez MD on 08/09/2019 2:45 PM Dictated By: HANY JUAREZ MD 44 Transcribed By: JENIFFER on 08/09/191444 COPY TO: NEEL DAO MD Sodium Level 2018-11-06 22:42:00 Test Item Sodium Level (test code = 2951-2) 128 136-145 L [facility] Cgxjx2815-00-31 22:42:00* Test Item Value Reference Range Interpretation Comments Potassium Level (test code = 2823-3) 4.5 3.5-5.1 [facility] Atlanta[facility]loride Iwddt7332-50-82 22:42:00* Test Item Value Reference Range Interpretation Comments Chloride Level (test code = 2075-0) 95 98-107 L [facility] Atlanta[facility]bon Dioxide Fwvmw9464-14-62 22:42:00* Test Item Value Reference Range Interpretation Comments Carbon Dioxide Level (test code = 2028-9) 25 22-29 [facility] Atlanta[facility]ion Ydt8665-34-76 22:42:00* Test Item Value Reference Range Interpretation Comments Anion Gap (test code = 02944-2) 12.5 8-16 [facility] Atlanta[facility] Urea Heajvrbb2044-38-83 22:42:00* Test Item Value Reference Range Interpretation Comments Blood Urea Nitrogen (test code = 3094-0) 30 7-26 H [facility] Atlanta[facility]inine2019-03-08 22:42:00* Test Item Value Reference Range Interpretation Comments Creatinine (test code = 2160-0) 1.14 0.57-1.11 H [facility] Atlanta[facility]UN/Creatinine Yvarm9071-26-39 22:42:00* Test Item Value Reference Range Interpretation Comments BUN/Creatinine Ratio (test code = 3097-3) 26 6-25 H [facility] Atlanta[facility]at Glomerular Filtration Rate 2018-11-06 22:42:00* Test Item Value Reference Range Interpretation Comments Estimat Glomerular Filtration Rate (test code = 027474927) 50 >60 L Ranges were taken from the National Kidney Disease Education Program and the [facility] literature.Reference ranges:60 or greater: Hwivxo92-52 ( for 3 consecutive months): Chronic kidney disease 15 or less: Kidney failureCHRISTUS Saint Michael Hospital – AtlantaGlucose Ewctn3707-77-39 22:42:00* Test Item Value Reference Range Interpretation Comments Glucose Level (test code = DKP7439) 511 74-118 HH Results repeated and called to SHIMA ROJO at 2238 on 11/06/18 by Inder Vaz. Read back and verified.[facility] Atlanta[facility]cium Dhpeu2067-91-89 22:42:00* Test Item Value Reference Range Interpretation Comments Calcium Level (test code = 30476-9) 10.0 8.4-10.2 [facility] AtlantaTotal Kmndngllg6946-50-62 22:42:00* Test Item Value Reference Range Interpretation Comments Total Bilirubin (test code = 1975-2) 0.3 0.2-1.2 [facility] Atlanta[facility]artate Amino Transf (AST/SGOT) 2018-11-06 22:42:00* Test Item Value Reference Range Interpretation Comments Aspartate Amino Transf (AST/SGOT) (test code = Aspartate Amino Transf (AST/SGOT)) 17 5-34 [facility] Atlanta[facility]anine Aminotransferase (ALT/SGPT) 2018-11-06 22:42:00* Test Item Value Reference Range Interpretation Comments Alanine Aminotransferase (ALT/SGPT) (test code = 1742-6) 19 0-55 [facility] AtlantaTotal Dwvohak3289-16-17 22:42:00* Test Item Value Reference Range Interpretation Comments Total Protein (test code = 2885-2) 7.8 6.5-8.1 [facility] AtlantaAlbumin2019-03-08 22:42:00* Test Item Value Reference Range Interpretation Comments Albumin (test code = 1751-7) 3.2 3.5-5.0 L [facility] AtlantaGlobulin2019-03-08 22:42:00* Test Item Value Reference Range Interpretation Comments Globulin (test code = 43894-6) 4.6 2.3-3.5 H [facility] AtlantaAlbumin/Globulin Khbun0619-28-99 22:42:00 * Test Item Value Reference Range Interpretation Comments Albumin/Globulin Ratio (test code = 1759-0) 0.7 0.8-2.0 L [facility] AtlantaAlkaline Btbciqhapnm2716-50-24 22:42:00* Test Item Value Reference Range Interpretation Comments Alkaline Phosphatase (test code = 6768-6) 181 40-150 H [facility] AtlantaWhite Blood Urwsh0223-99-98 22:27:00* Test Item Value Reference Range Interpretation Comments White Blood Count (test code = 6690-2) 8.07 4.8-10.8 [facility] Atlanta[facility] Blood Ruxxg1556-19-94 22:27:00* Test Item Value Reference Range Interpretation Comments Red Blood Count (test code = 789-8) 4.47 3.6-5.1 [facility] Atlanta[facility]emoglobin2019-03-08 22:27:00* Test Item Value Reference Range Interpretation Comments Hemoglobin (test code = 41585-6) 11.7 12.0-16.0 L [facility] AtlantaHematocrit2019-03-08 22:27:00* Test Item Value Reference Range Interpretation Comments Hematocrit (test code = 4544-3) 35.6 34.2-44.1 [facility] AtlantaMean Corpuscular Qkeuqx7824-43-96 22:27:00* Test Item Value Reference Range Interpretation Comments Mean Corpuscular Volume (test code = 787-2) 79.6 81-99 L [facility] Corpuscular Shyrxwcswl3412-98-90 22:27:00* Test Item Value Reference Range Interpretation Comments Mean Corpuscular Hemoglobin (test code = 785-6) 26.2 28-32 L [facility] Corpuscular Hemoglobin Concent 2018-11-06 22:27:00* Test Item Value Reference Range Interpretation Comments Mean Corpuscular Hemoglobin Concent (test code = 786-4) 32.9 31-35 [facility] Atlanta[facility] Cell Distribution Ointy5335-93-43 22:27:00* Test Item Value Reference Range Interpretation Comments Red Cell Distribution Width (test code = 39022-4) 13.3 11.7 -14.4 [facility] AtlantaPlatelet Rudqh6049-24-61 22:27:00* Test Item Value Reference Range Interpretation Comments Platelet Count (test code = 777-3) 236 140-360 [facility] AtlantaNeutrophils (%) (Auto)2018-11-06 22:27:00 * Test Item Value Reference Range Interpretation Comments Neutrophils (%) (Auto) (test code = 83500-5) 60.1 38.7-80.0 [facility] AtlantaLymphocytes (%) (Auto)2018-11-06 22:27:00 * Test Item Value Reference Range Interpretation Comments Lymphocytes (%) (Auto) (test code = 736-9) 31.7 18.0-39.1 [facility]ocytes (%) (Auto)2018-11-06 22:27:00* Test Item Value Reference Range Interpretation Comments Monocytes (%) (Auto) (test code = 5905-5) 5.3 4.4-11.3 [facility] Atlanta[facility]osinophils (%) (Auto)2018-11-06 22:27:00 * Test Item Value Reference Range Interpretation Comments Eosinophils (%) (Auto) (test code = 713-8) 2.1 0.0-6.0 [facility]ophils (%) (Auto)2018-11-06 22:27:00* Test Item Value Reference Range Interpretation Comments Basophils (%) (Auto) (test code = 706-2) 0.4 0.0-1.0 [facility] GRANULOCYTES %2018-11-06 22:27:00* Test Item Value Reference Range Interpretation Comments IM GRANULOCYTES % (test code = IM GRANULOCYTES %) 0.4 0.0- 1.0 [facility] AtlantaNeutrophils # (Auto)2018-11-06 22:27:00* Test Item Value Reference Range Interpretation Comments Neutrophils # (Auto) (test code = 751-8) 4.9 2.1-6.9 [facility] AtlantaLymphocytes # (Auto)2018-11-06 22:27:00* Test Item Value Reference Range Interpretation Comments Lymphocytes # (Auto) (test code = 68711-1) 2.6 1.0-3.2 [facility] Atlanta[facility]ocytes # (Auto)2018-11-06 22:27:00* Test Item Value Reference Range Interpretation Comments Monocytes # (Auto) (test code = 742-7) 0.4 0.2-0.8 [facility] Atlanta[facility]osinophils # (Auto)2018-11-06 22:27:00* Test Item Value Reference Range Interpretation Comments Eosinophils # (Auto) (test code = 711-2) 0.2 0.0-0.4 [facility]ophils # (Auto)2018-11-06 22:27:00* Test Item Value Reference Range Interpretation Comments Basophils # (Auto) (test code = 704-7) 0.0 0.0-0.1 [facility] AtlantaAbsolute Immature Granulocyte (auto 2018-11-06 22:27:00* Test Item Value Reference Range Interpretation Comments Absolute Immature Granulocyte (auto (tapan t code = Absolute Immature Granulocyte (auto) 0.03 0-0.1 [facility] - XRAY LUMBOSACRAL XR 2/3 VIEWS 2018-02-13 13:16:13CLINICAL INDICATION: M54.5 Low back painFINDINGS:COMPARISON: NoneFive lumbar vertebrae are present. There is mild generalized levoscoliosis. There is mild - moderate degeneration of all lumbar discs with spondylosis. L5-S1 disc is most degenerated.Facet joints are degenerated from L1-2 - L5-S1.There are compression fractures of L2 and L3 which have a chronic appearance. At L2 there is approximately 50% loss of height. At L3 there [...] be recommended.3. Multilevel facet osteoarthritis and disc degeneration.CHEST XRAY LINE PLACEMENT [place] [address] Patient Name: VERONICA GREENWOOD MR #: [id number] : 1965 Age/Sex: 52/F Req #: [id number] Adm Physician: CLARISA BOWMAN MD Ordered by: CLARISA BOWMAN MD Report #: [id number] Location: MED/SURG Room/Bed: [facility] Procedure: [id number] D X/CHEST XRAY LINE PLACEMENT Exam Date: 08/09/17 Exam Time: 1757 REPORT STATUS: Signed EXAMINATION: Chest, CHEST XRAY LINE PLACEMENT INDICATION: Chest pain COMPARISON: Portable chest 2016 FINDINGS: LINES: Right peripherally inserted central ve nous catheter is present with the tip projecting over the expected region of t he superior vena cava. Heart: Normal cardiac silhouette. Vascular: Th e pulmonary vasculature is within normal limits. Atherosclerotic calcificatio ns of the aortic arch. Mediastinum: No mediastinal, hilar, or axillary mass or lymphadenopathy. Lungs: No parenchymal mass. No focal consolidation. Pleura: No pleural effusion. No pneumothorax. Bones: No acute osseous abnormality. Degenerative changes of the thoracic spine. Soft tissues: Normal. Impression: No acute radiographic abnormality. Signed by: Dr. Pillo Parsons M.D. on 08/09/2017 6:22 PM Dictated By: PILLO JAQUELINE MD E lectronically Signed By: PILLO PARSONS MD on 08/09/171821 Transcribed By: TORSTEN Roper on 08/09/171821 COPY TO: CLARISA BOWMAN MD CHEST SINGLE (PORTABLE) [place] [address] Patient Name: VERONICA GREENWOOD MR #: [id number] : 1965 Age/Sex: 52/F Req #: [id number] Adm Physician: CLARISA BOWMAN MD Ordered by: CLARISA BOWMAN MD Report #: [id number] Location: [facility] Room/Bed: [place] [address] Procedure: [id number] D X/CHEST SINGLE (PORTABLE) Exam Date: 08/06/17 Exam T vikas: 1930 REPORT STATUS: Signed Single view chest August 06, 2017 Clinical history: Admission Technique: AP view chest Comparison: June 012010 Findings: The lungs are clear and symmetrically inflated. No pleu ral effusions. Enlarged cardiac silhouette for technique. Cephalization pulm onary vasculature with azygos and pulmonary artery enlargement. The skeleton is grossly intact. Impression: Cardiomegaly with central vascular con gestion. This report was generated with voice-recognition technology. Errors in double end sewer can occur. Please interpret accordingly and contact a radiologist if there are any questions regarding the report. Signed by: Dr. Verito De Paz M.D. on 08/06/2017 9:19 PM Dictated By: VERITO DE PAZ MD 18 Transcribed B y: JENIFFER on 08/06/172118 COPY TO: CLARISA BOWMAN MD MRI PELVIS WOW [facility] [address] [place] [address] Patient Name: VERONICA GREENWOOD MR #: [id number] : 1965 Age/Sex: 51/F Req #: [id number] Adm Physician: Ordered by: CLARISA BOWMAN MD Report #: [id number] Location: MRI Room/Bed: Procedure: [id number] MRI/MRI PELVIS WOW Exam Daniel e: Exam Time: REPORT STATUS: Signed TECHNI QUE: Magnetic resonance imaging of the PELVIS was performed WITH and WITHOUT, 8 cc of intravenous Gadavist. HISTORY: Bony exostosis, reported history of infection in pelvic bone, reported history of MRSA skin infections COMPAR KATERYNA: CT of the pelvis May 04, 2017, CT of the pelvis October 01, 2010. Nuclear medicine bone scan May 05, 2017. Lumbar spine MRI May 07. FINDINGS: Bones: No focal or infiltrative bone marrow replacing abnormality. Compression fracture deformities of L2, L3 and L4 are likely st able within the limitations of this comparison. No evidence of acute/active osteomyelitis involving the right ischium. Joints: Mild to moderate deg enerative changes of the hips. Soft tissues: Heterotopic ossification ad jacent to the right ischial tuberosity at the in the region of the proximal orourke mstring tendons which are markedly thickened and heterogeneous with mild intra substance edema. IMPRESSION: 1. Findings which are most suggestive o f the sequela of a late subacute to chronic proximal right hamstring tear and enthesopathy. No MRI evidence of acute/active right ischial osteomyelitis. Ch ronic/treated osteomyelitis may be a consideration in the appropriate setting. 2. Stable appearing compression deformities of L2, L3 and L4, better dalton cterized on the MRI of the lumbar spine from May 07, 2017. Clemencia d by: Dr. Salty Horne M.D. on 05/23/2017 12:09 PM Dictated By: SALTY Cadena DO 08 Transcribed By: JENIFFER on 05/23/171208 COPY TO: CLARISA BOWMAN MD MRI SPINE LUMBAR WOW [place] [address] Patient Name: VERONICA GREENWOOD MR #: [id number] : 1965 Age/Sex: 51/F Req #: [id number] Adm Physician: CLARISA BOWMAN MD Ordered by: JAMES ALVA MD Report #: [id number] Location: MED/SURG3 Room/Bed: [facility] Procedure: [id number] MR I/MRI SPINE LUMBAR WOW Exam Date: 05/07/17 Exam Time : 1135 REPORT STATUS: Signed History: Low back pain Comparison studie s: None Technique: Sagittal, coronal and axial T2 , sagittal T1 and IR, axial spin density oblique. Post contrast axial and sagittal T1. Intraven ous contrast: 8 cc of Gadavist Findings: Number of lumbar vertebral chandrika dies:5 Alignment: Normal lordosis.No scoliosis. Soft tissues: Subtle T2 h yperintense inflammatory changes in the right paraspinal soft tissues are L4-5 .. Paraspinal muscles: Fatty infiltrated from L4 through S1. Lower thoracic cord:Normal in signal and morphology. The tip of the conus is at T12-L1. C auda equina: No masses. No arachnoiditis. Vertebrae: An acute compression fracture along the superior endplate of L2 (hypointense on T1, hyperintense on T2 and diffusely enhancing) results in less than 20% height loss. A 3 mm ret ropulsed fragment from the superior endplate does not result in significant sp inal canal stenosis. The enhancing inflammatory changes extend into the pedicl es and focally into the paraspinal soft tissues. Additional chronic mati thomas fractures along the superior endplates of L3 and L4 which results in appr oximately focal 30% of height loss are still associated with subtle T2 hyperin tense enhancing inflammatory changes but much less than at L2. No retropulsed fragments displaced into the canal at both levels. Focal T2 hyperintense in flammatory changes along the anteroinferior endplate of L1 are not associated with compression fractures. Otherwise, no abnormalities at T11, T12, L4, L5 an d S1. Degenerative changes: L1-L4: Patent spinal canal and foramina. No disc herniation. L4-5: A central disc protrusion indents the thecal sac but does not result in spinal canal or foraminal stenosis. L5-S1: Mildly degenerated disc without Modic type I inflammatory changes along the e ndplates. A 2 mm central and right central disc protrusion abuts but does not compress the right S1 nerve root. Patent spinal canal. Foraminal stenosis is moderate left, mild right due to an asymmetric disc bulge and endplate osteop hytes. No disc herniation. Partially visualized sacrum: No signal abnorma lities. IMPRESSION: 1. Acute compression fracture along the superior endplate of L2 as described. 2. Chronic focal compression fractures at L3 and L4 are associated with subtle residual inflammatory changes. 3. A central disc protrusion at L4-5 does not compress nerve roots, foramina or spinal can al. 4. Degenerative changes result in foraminal stenosis, moderate left, mild right at L5-S1. Signed by: Dr. Zeeshan Ly M.D. on 05/07/2017 6:54 PM Dictated By: ZEESHAN LY MD, MD [id number] Transcribed By: JENIFFER on 05/07/17 1 854 COPY TO: JAMES ALVA MD SPECIAL PROCEDURE IN HOSPITAL ADMINISTRATIVE ASSISTANT [place] [address] Patient Name: VERONICA GREENWOOD MR #: [id number] : 1965 Age/Sex: 51/F Req #: [id number] Adm Physician: CLARISA BOWMAN MD Ordered by: JAMES ALVA MD Report #: [id number] Locati on: MED/SURG3 Room/Bed: [facility] [place] Procedure: IR /SPECIAL PROCEDURE IN HOSPITAL ADMINISTRATIVE ASSISTANT Exam Date: Exam Time : REPORT STATUS: Signed Date and Time: 05/06/2017 Procedure: Right internal jugular tunneled central venous catheter placement Primary operato r: Dr. Schultz Pre-operative diagnosis: Osteomyelitis, need for long-term intravenous antibiotics Post-operative diagnosis: Osteomyelitis, need for lo ng-term intravenous antibiotics Conscious Sedation: Fentanyl 75 mcg intra venous. The patient's heart rate and pulse oximetry were continuously monitore d by the interventional radiology nurse. Blood pressure was monitored at 5 mi nute intervals. Additional Medications: Lidocaine 2% for local anesthesia Fluoroscopy time: 1.5 minutes Dose-area Product: [address] used: None Estimated blood loss: Less than 5 cc Blood products administer ed: None Specimens: None Implants: 9 Danish dual lumen tunneled central veno us catheter Condition at completion of procedure: Stable Disposition: Return ed to chow unit. DISCUSSION: Informed consent for the procedure was ob tained from the patient and documented in the medical record. The patient was placed in the supine position on the angiographic table. The right neck a nd upper chest were prepped and draped in the standard sterile fashion. Prelim inary sonographic evaluation confirmed patency of the right internal jugular v ein, evidenced by compressibility. 2% lidocaine was infiltrated into the sk in and subcutaneous tissues for local anesthesia. Then under continuous sonogr aphic guidance, a 21-gauge micropuncture needle was used to access the right i nternal jugular vein. A 0.0 1 8-in. wire was advanced centrally under fluorosc opic guidance. The needle was exchanged for a 5 Danish micropuncture sheath. I ntravascular length to the upper right atrium was measured using the microwire . The wire was then upsized to a 0.0 3 5-in. Amplatz wire which was advanced i nto the inferior vena cava under fluoroscopic guidance. Attention was the n turned to creation of a tunnel exit site on the right upper chest approximat marva 2 fingerbreadths below the clavicle. 2% lidocaine was infiltrated into the skin and subcutaneous tissues on the right upper chest extending to the venot suyapa at the right lower neck. A small stab incision was made. The catheter was then tunneled from the right upper chest to the right lower neck, placing the retention cuff approximately 2 cm into the subcutaneous tunnel. The catheter w as then cut to the predetermined intravascular length. The micropuncture sheat h was then exchanged for a 10 Danish peel-away sheath over the wire. The wire and obturator of the sheath were removed and the catheter was advanced through the peel-away sheath which was then broken and discarded. The catheter tip was positioned in the upper right atrium. Each lumen was tested and showed adequ ate bidirectional flow. The small caliber lumen was then packed with 1000 u nits of heparin. The large caliber lumen was then packed with 2000 units of he eduardo. The catheter was secured to the skin with monofilament nylon suture. Th e venotomy at the right lower neck was closed with tissue adhesive. Sterile dr essings were applied. The patient tolerated the procedure well without immedia te complication. FINDINGS: Patent right internal jugular vei n. IMPRESSION: Successful placement of a 9 Danish, dual lumen tunneled central venous catheter for purposes of long-term intravenous antibiotic admi nistration. Signed by: Dr. Andi Schultz M.D. 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 Schultz Pre-operative diagnosis: Osteomyelitis, need for long-term intravenous antib iotics Post-operative diagnosis: Osteomyelitis, need for long-term intravenous antibiotics Conscious Sedation: Fentanyl 75 mcg intravenous. The patie nt's heart rate and pulse oximetry were continuously monitored by the [facility] radiology nurse. Blood pressure was monitored at 5 minute intervals. Additional Medications: Lidocaine 2% for local anesthesia Fluoroscopy time: 1.5 minutes Dose-area Product: 558 cGycm2. Contrast used: None Est imated blood loss: Less than 5 cc Blood products administered: None Specimen s: None Implants: 9 Danish dual lumen tunneled central venous catheter Condi tion at completion of procedure: Stable Disposition: Returned to chow unit. DISCUSSION: Informed consent for the procedure was obtained from the [facility] ient and documented in the medical record. The patient was placed in the supine position on the angiographic table. The right neck and upper chest were prepped and draped in the standard sterile fashion. Preliminary sonographic e valuation confirmed patency of the right internal jugular vein, evidenced by c ompressibility. 2% lidocaine was infiltrated into the skin and subcutaneous tissues for local anesthesia. Then under continuous sonographic guidance, a 2 1-gauge micropuncture needle was used to access the right internal jugular vei n. A 0.0 1 8-in. wire was advanced centrally under fluoroscopic guidance. The needle was exchanged for a 5 Danish micropuncture sheath. Intravascular length to the upper right atrium was measured using the microwire. The wire was then upsized to a 0.0 3 5-in. Amplatz wire which was advanced into the inferior ve na cava under fluoroscopic guidance. Attention was then turned to creatio n of a tunnel exit site on the right upper chest approximately 2 fingerbreadth s below the clavicle. 2% lidocaine was infiltrated into the skin and subcutane ous tissues on the right upper chest extending to the venotomy at the right lo wer neck. A small stab incision was made. The catheter was then tunneled from the right upper chest to the right lower neck, placing the retention cuff appr oximately 2 cm into the subcutaneous tunnel. The catheter was then cut to the predetermined intravascular length. The micropuncture sheath was then exchange d for a 10 Danish peel-away sheath over the wire. The wire and obturator of th e sheath were removed and the catheter was advanced through the peel-away tracy th which was then broken and discarded. The catheter tip was positioned in the upper right atrium. Each lumen was tested and showed adequate bidirectional f low. The small caliber lumen was then packed with 1000 units of heparin. Th e large caliber lumen was then packed with 2000 units of heparin. The catheter was secured to the skin with monofilament nylon suture. The venotomy at the r ight lower neck was closed with tissue adhesive. Sterile dressings were applie d. The patient tolerated the procedure well without immediate complication. FINDINGS: Patent right internal jugular vein. IMPRESSION: Successful placement of a 9 Danish, dual lumen tunneled central venous cat heter for purposes of long-term intravenous antibiotic administration. Si gned by: Dr. Andi Schultz M.D. on 05/06/2017 3:17 PM Dictated By: ANDI SCHULTZ MD 111 Transcri bed By: JENIFFER on 05/29/171114 COPY TO: JAMES ALVA MD BONE SCAN, 3 PHASE [place] [address] Patient Name: VERONICA GREENWOOD MR #: [id number] : 1965 Age/Sex: 51/[id number] Req #: [id number] Adm Physician: CLARISA BOWMAN MD Ordered by: ANDREW DAO MD Report #: [id number] Location: [facility] Room/Bed: [place] Procedure: NM/BONE SCAN, 3 PHASE Exam Date: 05/05/17 Exam Time: 1530 REPORT STATUS: Signed Bone Scan, three-phase with SPECT R deedee for exam: 51 F with acute low back pain and right hip pain; concern for osteomyelitis; Patient passed out twice before pain began. Medications from outside hospital were not helping. Radiopharmaceutical: Tc-99m MDP 26 mCi Comparison: None Following intravenous administration of the radiophar maceutical, dynamic flow and immediate blood pool images of the lower back, pe lvis and hips followed by delayed total body and selected spot images were obt ained. Tomographic images of the lower lumbar spine, pelvis and hips were als o obtained. Flow and blood pool images show symmetric distribution of trace r in the lower back, pelvis and hips. Focal increased tracer is seen in the r ight lower pelvis but none is seen in the lumbar spine. On the delayed images, focal increased tracer is seen in L2 and on the right side of L3. Foc al increased tracer is also seen in the right ischium inferior to the right ac etabulum. The tomographic images confirm the focal increased tracer uptake in the right ischium. L2 and L3 are not included in the tomographic images. Di stribution of tracer is unremarkable throughout the remainder of the skeletal system. No abnormal accumulation of tracer is seen in the soft tissues or u rinary tract. Impression: 1. Acute osteoblastic process in L2 and L3 is most consistent with trauma given absence of focal uptake on the flow an d blood pool images. 2. Acute osteoblastic process in the right ischium is worrisome for osteomyelitis. Signed by: Dr. Viki Mccullough M.D. on 05/05/2017 7:50 PM Dictated By: VIKI MCCULLOUGH MD 49 Transcribed By: JENIFFER on 05/05/171949 COPY TO: ANDREW DAO MD CT ABDOMEN/PELVIS W [place] [address] Patient Name: VERONICA GREENWOOD MR #: [id number] : 1965 Age/Sex: 51/F Req #: [id number] Adm Physician: CLARISA BOWMAN MD Ordered by: SAMMI BARBER MD Report #: [id number] Location: MED/SURG3 Room/Bed: [place] Procedure: [id number] C T/CT ABDOMEN/PELVIS W Exam Date: 05/04/17 Exam Time: 0733 REPORT STATUS: Signed ADDENDUM #1 Adden dum: Comparison is made to CT abdomen and pelvis without contrast 10/01/2010 Interval development of a bony exostosis in the mid aspect of the right inferi or pubic ramus (series 2, image 91 and sagittal image 45), which extends into the right adductor muscle and measures approximately 3.6 cm in length and like ly has a cartilage cap. This corresponds to the focus of increased tracer upta ke on recent bone scan dated 05/05/2017. No evidence of infection at this loca tion. Given the findings and patient's symptoms of pain, recommend MRI bony pe lvis ([facility] protocol) with and without contrast, for evaluation of the cartilage cap. Signed by: Dr. Gabino Brunson M.D. on 05/15/2017 11:37 AM ORIGINAL REPORT EXAM: CT Abdomen and Pelvis WITH contrast I NDICATION: Right lower quadrant pain, nausea and vomiting, evaluate for append icitis COMPARISON: CT abdomen and pelvis from 10/01/2010 and KUB from TECHNIQUE: Abdomen and pelvis were scanned utilizing a multidetector helical scanner from the lung base to the pubic symphysis after administration of IV contrast. Coronal and sagittal reformations were obtained. Routine protocol was performed. Scan was performed when during portal venous phase. IV CONTRAST: 100 mL of Isovue-370 ORAL CONTRAST: None RADIATION DOSE: Total DLP: 593.3 mGy*cm Estimated effective dose: (DLP x 0.015 x size factor) mSv COMPLICATIONS: None FINDINGS: LINES and TUBES: None. LOWER THORAX: Minimal scarring at both lung bases. HEPATOBILIARY: No focal hepatic lesions. No biliary ductal d ilation. GALLBLADDER: Cholecystectomy. SPLEEN: No splenomegaly. Small splenule inferior to the spleen. PANCREAS: No focal masses or ductal dilat ation. ADRENALS: 1.5 cm right adrenal gland nodule is mildly hyperdense m easuring 38 Hounsfield units, however, this nodule was low density on and is stable in size and likely represented an adrenal gland adenoma. KIDNEYS/URETERS: Kidneys enhance symmetrically. No hydronephrosis. Stable 1 .7 cm left renal cyst. Mild bilateral perinephric fat stranding. Previously no mirna left renal stone is no longer seen. Few smaller cysts in the right kidney with cortical scarring. No stones. GI TRACT: No abnormal distention, wall thickening, or evidence of bowel obstruction. Large amount of retained stool is throughout the colon without dilatation. Appendix is normal. PELVIC ORGANS/BLADDER: Hysterectomy. The urinary bladder is moderately distended with out wall thickening or calcifications. Mild amount of air in the urinary bladd er may be due to recent instrumentation. LYMPH NODES: No lymphadenopathy. S table few small nonspecific mesenteric lymph nodes. VESSELS: Mild atheros clerotic calcifications of the abdominal aorta and pelvic arteries without ane urysm. The celiac trunk, SMA, and SLIME are widely patent. Single bilateral suzanne l arteries are patent Incidental circumaortic left renal vein. PERITONEUM / RETROPERITONEUM: No free air or fluid. BONES: Moderate wedge compression deformity with associated multiple lucent lesions within L3 vertebral body tata cent lesions appear to extend into the posterior element on the left. There is also diffuse cortical lucency at L2 vertebral body with degenerative changes of the superior endplate. Moderate before meals space narrowing at L5-S1. All these findings are new when compared to 10/01/2010. SOFT TISSUES: Unremark able. IMPRESSION: Normal appendix. Interval development of advanced degenerative changes in the lumbar spine as well as wedge mati thomas deformity with cortical destruction of L3 vertebral body. Though these ch anges may be degenerative, cannot exclude additional pathology such as osteomy elitis or metastasis. Recommend further evaluation with bone scan. These findi ngs may correlate with patient's pain. Stable indeterminate right adrenal g land nodule since 10/01/2010. Signed by: Dr. Catia Moffett M.D. on 2016 8:21 AM Dictated By: CATIA MOFFETT MD Electronically Sign ed By: CATIA MOFFETT MD on 05/15/17 1137 Transcribed By: JENIFFER on 0 05/04/17 0876 COPY TO: SAMMI BARBER MD
--- NOTE | 2020-02-09 00:13 | Emergency Department Note ---
History of Present Illnes History of Present Illness History of Present Illness This is a 54 year old female states that she was experiencing dizziness throughout the day. Patient was watching television, and when attempted to arouse her from sleep, patient remained lethargic. Transported by EMS, patient seen at bedside AO x 3 . 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 Any updates have been documented here. Past Medical History Past Medical History: Hypertension, Diabetes, CHF, Asthma, CAD, Depression, Other Mental Illness Other Medical History: DIABETIC NEUROPATHY REFLUX MRSA BIPOLAR Past Surgical History: Cholecysctectomy, Hysterectomy, PCI, Mastectomy Other Surgery: CARDIAC STENT Left Mastectomy Right hand amputation CATH WITH NO STENT Social History Smoking Cessation: Current some day smoker Alcohol Use: Occasional Any Illegal Drug Use: Yes Other Last Tetanus: UTD Review of Systems Review of Systems Constitutional: Reports no symptoms EENTM: Reports no symptoms Cardiovascular: Reports no symptoms Respiratory: Reports no symptoms Gastrointestinal: Reports nausea Genitourinary: Reports no symptoms Musculoskeletal: Reports no symptoms Integumentary: Reports no symptoms Neurological: Reports weakness Psychological: Reports no symptoms Endocrine: Reports no symptoms Hematological/Lymphatic: Reports no symptoms Review of other systems All other systems reviewed and negative. Physical Exam Related Data Allergies: Coded Allergies: codeine (Verified Allergy, Unknown, 12/16/19) hydrocodone (Verified Adverse Reaction, Mild, SICK, 11/06/18) Triage Vital Signs Vital Signs Date Time Temp Pulse Resp B/P (MAP) Pulse Ox O2 Delivery O2 Flow Rate FiO2 02/09/20 01:03 98.4 78 12 82/58 99 02/09/20 20:51 Room Air Vital signs reviewed: Yes Physical Exam CONSTITUTIONAL Constitutional: Reports well-developed, Reports well-nourished HENT HENT: Reports normocephalic, Reports atraumatic, Reports oropharynx clear/moist, Reports nose normal HENT L/R: Reports left ext ear normal, Reports right ext ear normal EYES Eyes: Reports PERRL, Reports conjunctivae normal NECK Neck: Reports ROM normal PULMONARY Pulmonary: Reports effort normal, Reports breath sounds normal CARDIOVASCULAR Cardiovascular: Reports regular rhythm, Reports heart sounds normal, Reports capillary refill normal, Reports normal rate GASTROINTESTINAL Abdominal: Reports soft, Reports nontender, Reports bowel sounds normal GENITOURINARY Genitourinary: Reports exam deferred SKIN Skin: Reports warm, Reports dry MUSCULOSKELETAL Musculoskeletal: Reports ROM normal NEUROLOGICAL Neurological: Reports alert, Reports oriented x 3, Reports no gross motor or sensory deficits PSYCHOLOGICAL Psychological: Reports mood/affect normal, Reports judgement normal Results Laboratory Lab results reviewed: Yes Laboratory comments CBC : anemia CMP : Cr 1.6 K 5.2 Troponins : neg UA : mod bacteria Imaging Imaging results reviewed: Yes Impressions [place] [address] Patient Name: VERONICA GREENWOOD MR #: [id number] : 1965 Age/Sex: 54/F Req #: [id number] Adm Physician: Ordered by: J LUIS GALLAGHER DO Report #: [id number] Location: ER Room/Bed: Procedure: [id number] DX/CHEST SINGLE (PORTABLE) Exam Date: 02/09/20 Exam Time: 54 REPORT STATUS: Signed EXAMINATION: CHEST SINGLE (PORTABLE) INDICATION: ^ERMD ORDER ^[id number] ^005 ^Y COMPARISON: 12/15/2019 FINDINGS: AP view TUBES and LINES: None. LUNGS: Lungs are well inflated. There is no evidence of pneumonia or pulmonary edema. PLEURA: No pleural effusion or pneumothorax. HEART AND MEDIASTINUM: The cardiomediastinal silhouette is unremarkable. BONES AND SOFT TISSUES: No acute osseous lesion. Soft tissues are unremarkable. UPPER ABDOMEN: No free air under the diaphragm. IMPRESSION: No acute thoracic abnormality. Signed by: Dr. Evelio Mckenna MD on 02/09/2020 1:38 AM Dictated By: EVELIO MCKENNA MD 7 Transcribed By: JENIFFER on 02/09/20137 COPY TO: J LUIS GALLAGHER DO~ [place] [address] Patient Name: VERONICA GREENWOOD MR #: [id number] : 1965 Age/Sex: 54/F Req #: [id number] Adm Physician: Ordered by: J LUIS GALLAGHER DO Report #: [id number] Location: ER Room/Bed: __ Procedure: [id number] CT/CT BRAIN WO Exam Date: 02/09/20 Exam Time: 0045 REPORT STATUS: Signed Examination: CT BRAIN WO CONTRAST History:Syncope Comparison studies:December 15, 2019 Technique: Axial images were obtained from the skull base to the vertex. Coronal and sagittal images reconstructed from the axial data. Dose modulation, iterative reconstruction, and/or weight based adjustment of the mA/kV was utilized to reduce the radiation dose to as low as reasonably achievable. Intravenous contrast: None Findings: Scalp: No abnormalities. Bones: No fractures, blastic or lytic lesions. Brain sulci: Generalized volume loss for age. Ventricles: No hydrocephalus. Extra-axial space: No abnormalities. Parenchyma: No masses, hemorrhage, or acute or chronic cortical based vascular insults.. Sellar/suprasellar region: No abnormalities. Craniocervical junction: Patent foramen magnum. No Chiari one malformation. Incidental findings: None. Impression: No new acute intracranial abnormalities when compared to prior head CT dated December 15, 2019. Unchanged generalized volume loss for age. Signed by: Dr. Leslie Goetz M.D. 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 Noted EKG changes when compared to previous EKG. Abnormal Cr. Plan to admit to the hospital for further evaluation. Assessment & Plan Final Impression: (1) Dizziness (2) Hyperkalemia (3) Renal failure (4) Abnormal finding on EKG Depart Disposition: ADMITTED Home Meds Reported Medications Venlafaxine Hcl (VENLAFAXINE HCL ER) 75 Mg Tab.er.24, 75 MG PO HS 02/10/20 Quetiapine Fumarate (QUETIAPINE FUMARATE) 25 Mg Tablet, 25 MG PO HS 02/10/20 Metoprolol Succinate (METOPROLOL SUCCINATE) 50 Mg Tab.er.24h, 50 MG PO DAILY, MG 02/10/20 Insulin Detemir (Levemir Flextouch) 100 Unit/1 Ml Insuln.pen, 50 UNITS SC BID, UNIT 02/10/20 Aspirin (ASPIR 81) 81 Mg Tablet.dr, 81 MG PO DAILY 02/10/20 Medications in the ED Sodium Chloride 1,000 ml @ 0 mls/hr Q0M STAT IV ; Start 02/09/20 at 00:07; Stop 02/09/20 at 00:09; Status DC Aspirin 81 mg PRN ONCE PO ; Start 02/09/20 at 00:15; Stop 02/09/20 at 00:16; Status UNV J LUIS GALLAGHER DO Feb 09, 2020 00:13
[2020-02-09] MEDS ORDERED: ASPIRIN 81 MG CHEW TAB PO ONE (00:15)
--- NOTE | 2020-02-09 01:18 | Diagnostic Imaging Report ---
Examination: CT BRAIN WO CONTRAST History:Syncope Comparison studies:December 15, 2019 Technique: Axial images were obtained from the skull base to the vertex. Coronal and sagittal images reconstructed from the axial data. Dose modulation, iterative reconstruction, and/or weight based adjustment of the mA/kV was utilized to reduce the radiation dose to as low as reasonably achievable. Intravenous contrast: None Findings: Scalp: No abnormalities. Bones: No fractures, blastic or lytic lesions. Brain sulci: Generalized volume loss for age. Ventricles: No hydrocephalus. Extra-axial space: No abnormalities. Parenchyma: No masses, hemorrhage, or acute or chronic cortical based vascular insults.. Sellar/suprasellar region: No abnormalities. Craniocervical junction: Patent foramen magnum. No Chiari one malformation. Incidental findings: None. Impression: No new acute intracranial abnormalities when compared to prior head CT dated December 15, 2019. Unchanged generalized volume loss for age. Signed by: Dr. Leslie Goetz M.D. on 02/09/2020 1:14 AM
--- NOTE | 2020-02-09 01:41 | Diagnostic Imaging Report ---
EXAMINATION: CHEST SINGLE (PORTABLE) INDICATION: ^ERMD ORDER ^[id number] ^0055 ^Y COMPARISON: 12/15/2019 FINDINGS: AP view TUBES and LINES: None. LUNGS: Lungs are well inflated. There is no evidence of pneumonia or pulmonary edema. PLEURA: No pleural effusion or pneumothorax. HEART AND MEDIASTINUM: The cardiomediastinal silhouette is unremarkable. BONES AND SOFT TISSUES: No acute osseous lesion. Soft tissues are unremarkable. UPPER ABDOMEN: No free air under the diaphragm. IMPRESSION: No acute thoracic abnormality. Signed by: Dr. Evelio Tapia MD on 02/09/2020 1:38 AM
[2020-02-09 01:59] LABS: BASOPHILS % 0.5 % (0.0-1.0); EOSINOPHILS # (AUTO) 0.2 (0.0-0.4); EOSINOPHILS % 2.7 % (0.0-6.0); HEMATOCRIT 31.2 % (34.2-44.1); HEMOGLOBIN 9.8 g/dL (12.0-16.0); LYMPHOCYTES # (AUTO) 1.8 (1.0-3.2); LYMPHOCYTES % 20.3 % (18.0-39.1); MEAN CORPUSCULAR HGB CONC 31.4 g/dL (31-35); MEAN CORPUSCULAR VOLUME 89.1 fL (81-99); MONOCYTES # (AUTO) 0.5 (0.2-0.8); MONOCYTES % 5.3 % (4.4-11.3); NEUTROPHILS # (AUTO) 6.1 (2.1-6.9); PLATELET COUNT 197 x10e3/uL (140-360); RED CELL DISTRIBUTION WIDTH 16.2 % (11.7-14.4)
[2020-02-09 02:20] LABS: ALBUMIN 3.4 g/dL (3.5-5.0); ALBUMIN/GLOBULIN RATIO 0.8 (0.8-2.0); ANION GAP 15.2 mmol/L (8-16); CALCIUM 9.3 mg/dL (8.4-10.2); CREATININE, SERUM 1.6 mg/dL (0.57-1.11); POTASSIUM 5.2 mmol/L (3.5-5.1)
[2020-02-09 02:54] LABS: CREATINE KINASE MB 2.2 ng/mL (0-5.0)
--- NOTE | 2020-02-09 03:30 | NUR ---
{null, PT RESTING, PT TO BE ADMITTED, PT AWARE OF POC, VITAL SIGNS STABLE, PT VOICES NO COMPLAINTS AT THIS TIME. }
--- OUTSIDE RECORDS SUMMARY | 2020-02-09 03:32 | XMS REPORT | Continuity of Care Document ---
Author Author [facility] t Organization [facility] Address 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 Allergies, Adverse Reactions, Alerts Allergy Name Allergy Type Status Severity Reaction(s) Onset Date Inacti ve Date Treating Clinician Comments Source Hydrocodone Propensity to adverse reactions Active Mild SIC K 2018-11-06 00:00:[address] [facility] Acetaminophen Propensity to adverse reactions Active Mild S ICK 2018-11-06 00:00:[address] [facility] hydrocodone DA Active MO 2017-07-15 00:00:00 [facility] Medications Ordered Medication Name Filled Medication Name Start Date Stop Da te Current Medication? Ordering Clinician Indication Dosage Frequency Signature (SIG) Comments Components Source Levamir Levamir Yes 10 Twice A Day [facility] Lisinopril 10 Mg Tablet Lisinopril 10 Mg Tablet Yes [address] [facility] Quetiapine Fumarate 25 Mg Tablet Quetiapine Fumarate 25 Mg Tablet Yes [address] [facility] Spironolactone 100 Mg Tablet Spironolactone 100 Mg Tablet Y es 100 Daily [facility] Venlafaxine Hcl (Venlafaxine Hcl Er) 75 Mg Tab.er.24 V enlafaxine Hcl (Venlafaxine Hcl Er) 75 Mg Tab.er.24 Yes [address] [facility] Hydrocodone Bit/Acetaminophen (Hydrocodo ne-Apap 10-325 Tablet) 1 Each Tablet, 10 Mg Oral Hydrocodone Bit/Acetaminophen (Hydrocodo ne-Apap 10-325 Tablet) 1 Each Tablet, 10 Mg Oral 2017-05-04 00:00:00 No [address] [facility] Insulin Aspart (Novolog) 100 Unit/1 Ml Cartridge, 10 U nits Sub-Q Insulin Aspart (Novolog) 100 Unit/1 Ml Cartridge, 10 Units Sub-Q 2017-05-04 00:00:00 No 10 Three Times A Day [facility] Insulin Lispro (Humalog) 100 Unit/1 Ml Vial, 10 Units Subcutaneously Insulin Lispro (Humalog) 100 Unit/1 Ml Vial, 10 Units Subcutaneously 2017-05-04 00:00:00 No 10 Three Times Daily With Meals [facility] Trazodone Hcl 100 Mg Tablet, 100 Mg Oral Trazodone Hcl 100 Mg Tablet, 100 Mg Oral 2017-05-04 00:00:[address] [facility] Cefuroxime Axetil (Cefuroxime) 250 Mg Tablet, 250 Mg O ral Cefuroxime Axetil (Cefuroxime) 250 Mg Tablet, 250 Mg Oral 2013-11-08 00:00:00 No 250 Twice A Day [facility] Duloxetine Hcl (Cymbalta) 60 Mg Capsule., 60 Mg Oral Duloxetine Hcl (Cymbalta) 60 Mg Capsule., 60 Mg Oral 2013-11-08 00:00:[address] [facility] Lactulose (Kristalose) 20 Gm Packet, 20 G Oral Lactulo se (Kristalose) 20 Gm Packet, 20 G Oral 2013-11-08 00:00:00 No [address] [facility] Lorazepam (Ativan) 1 Mg Tablet, 0.5 Mg Oral Lorazepam (Ativan) 1 Mg Tablet, 0.5 Mg Oral 2013-11-08 00:00:[address] [facility] Phenazopyridine Hcl (Pyridium) 200 Mg Tablet, 200 Mg O ral Phenazopyridine Hcl (Pyridium) 200 Mg Tablet, 200 Mg Oral 2013-11-08 00:00:00 No 200 Three Times A Day [facility] Phentermine Hcl 37.5 Mg Capsule, 37.5 Mg Oral Phenterm ine Hcl 37.5 Mg Capsule, 37.5 Mg Oral 2013-11-08 00:00:00 No 37.5 Every Morni [facility] Fluoxetine , Fluoxetine , 2012-11-12 00:00:00 [facility] Pregabalin (Lyrica) 150 Mg Capsule, Mg Oral Pregabali n (Lyrica) 150 Mg Capsule, Mg Oral 2012-11-12 00:00:[address] A Day [facility] Insulin Glargine,Hum.rec.anlog (Lantus) 100 Unit/1 Ml Vial, Insulin Glargine,Hum.rec.anlog (Lantus) 100 Unit/1 Ml Vial, 2012-11-10 00:0 0:00 [facility] Pantoprazole Sodium (Protonix) 40 Mg Suspdr.pkt, Panto prazole Sodium (Protonix) 40 Mg Suspdr.pkt, 2012-11-10 00:00:00 [facility] Trimethoprim/Sulfamethoxazole (Bactrim Ds) 1 Ea Tab, Trimethoprim/Sulfamethoxazole (Bactrim Ds) 1 Ea Tab, 2011-06-19 00: 00:00 [facility] Procedures This patient has no known procedures. Encounters Start Date/Time End Date/Time Encounter Type Admission Type Attendi ng Clinicians Care Facility Care Department Encounter ID Source 2019-11-28 11:31:00 2019-11-28 11:31:00 Emergency E [id number] 2019 12:57:00 2019 12:57:00 Emergency E [facility]NE [facility]NE 7500 [facility] 2019-05-10 00:32:00 2019-05-10 00:32:00 Outpatient E MHSE CAR [id number] 2019-02-25 20:37:00 2019-02-23 17:02:00 Inpatient E [facility]SE MED [id number] 2018-11-06 16:43:00 2018-11-06 23:06:00 Departed Emergency Room [facility] [id number] [facility] Results Test Description Test Time Test Comments Results Result Comments Source CHEST SINGLE (PORTABLE) 2020-02-09 01:37:00 [place] [address] Patient Name: VERONICA GREENWOOD MR #: [id number] : 1965 Age/Sex: 54/F Req #: [id number] Adm Physician: Ordered by: J LUIS GALLAGHER DO Report #: [id number] Location: ER Room/Bed: Procedure: [id number] DX/CHEST SINGLE (PORTABLE) Exam Date: 02/09/20 Exam Time: 54 REPORT STATUS: Signed EXAMINATION: CHEST SINGLE (PORTABLE) INDICATION: ERMD ORDER [id number] Y COMPARISON: 12/15/2019 FINDINGS: AP view TUBES and LINES: None. LUNGS: Lungs are well inflated. There is no evidence of pneumonia or pulmonary edema. PLEURA: No pleural effusion or pneumothorax. HEART AND MEDIASTINUM: The cardiomediastinal silhouette is unremarkable. BONES AND SOFT TISSUES: No acute osseous lesion. Soft tissues are unremarkable. UPPER ABDOMEN: No free air under the diaphragm. IMPRESSION: No acute thoracic abnormality. Signed by: Dr. Evelio Mckenna MD on 02/09/2020 1:38 AM Dictated By: EVELIO MCKENNA MD 7 Transcribed By: JENIFFER on 02/09/20137 COPY TO: J LUIS GALLAGHER DO CT BRAIN WO 2020-02-09 01:10:00 [place] [address] Patient Name: VERONICA GREENWOOD MR #: [id number] : 1965 Age/Sex: 54/F Req #: [id number] Adm Physician: Ordered by: J LUIS GALLAGHER DO Report #: [id number] Location: ER Room/Bed: Procedure: [id number] CT/CT BRAIN WO Exam Date: 02/09/20 Exam Time: 0045 REPORT STATUS: Signed Examination: CT BRAIN WO CONTRAST History:Syncope Comparison studies:December 15, 2019 Technique: Axial images were obtained from the [...] one malformation. Incidental findings: None. Impression: No new acute intracranial abnormalities when compared to prior head CT dated December 15, 2019. Unchanged generalized volume loss for age. Signed by: Dr. Janis Goetz M.D. on 02/09/2020 1:14 AM Dictated By: JANIS BLAKE MD 3 Transcribed By: JENIFFER on 02/09/20113 COPY TO: J LUIS GALLAGHER DO CT CHEST W 2019-12-15 13:46:00 [place] [address] Patient Name: VERONICA GREENWOOD MR #: [id number] : 1965 Age/Sex: 54/F Req #: [id number] Adm Physician: PILLO GALLAGHER MD Ordered by: SULEMAN SANTIAGO Report #: [id number] Location: [facility] Room/Bed: [place] [address] Procedure: [id number] CT/CT CHEST W Exam Date: 12/15/19 Exam [...] TO: SULEMAN SANTIAGO CTA ABD/PELVIS 2019-12-15 13:34:00 [place] [address] Patient Name: VERONICA GREENWOOD MR #: [id number] : 1965 Age/Sex: 54/F Req #: [id number] Adm Physician: PILLO GALLAGHER MD Ordered by: SULEMAN SANTIAGO Report #: [id number] Location: [facility] Room/Bed: [place] [address] Procedure: [id number] CT/CTA ABD/PELVIS Exam Date: 12/15/19 Exam Time: [...] MUELLER MD 1346 Transcribed By: JENIFFER on 12/15/19 1346 COPY TO: SULEMAN SANTIAGO CHEST XRAY LINE PLACEMENT 2019-12-15 12:14:00 [place] [address] Patient Name: VERONICA GREENWOOD MR #: [id number] : 1965 Age/Sex: 54/F Req #: [id number] Adm Physician: Ordered by: SULEMAN SANTIAGO Report #: [id number] Location: ER Room/Bed: Procedure: [id number] DX/CHEST XRAY LINE PLACEMENT Exam Date: 12/15/19 [...] MUELLER MD 1216 Transcribed By: JENIFFER on 12/15/19 1216 COPY TO: SULEMAN SANTIAGO CT CERVICAL SPINE WO 2019-12-15 11:06:00 [place] [address] Patient Name: VERONICA GREENWOOD MR #: [id number] : 1965 Age/Sex: 54/F Req #: [id number] Adm Physician: Ordered by: SULEMAN SANTIAGO Report #: [id number] Location: ER Room/Bed: Procedure: [id number] CT/CT CERVICAL SPINE WO Exam Date: Exam [...] SANTIAGO CT MAXIO FAC/PARANAS WO 2019-12-15 10:57:00 [place] [address] Patient Name: VERONICA GREENWOOD MR #: [id number] : 1965 Age/Sex: 54/F Req #: [id number] Adm Physician: Ordered by: SULEMAN SANTIAGO Report #: [id number] Location: ER Room/Bed: Procedure: [id number] CT/CT MAXIO FAC/PARANAS WO Exam Date: Exam [...] SULEMAN SANTIAGO CT BRAIN WO 2019-12-15 10:53:00 [place] [address] Patient Name: VERONICA GREENWOOD MR #: [id number] : 1965 Age/Sex: 54/F Req #: [id number] Adm Physician: Ordered by: SULEMAN SANTIAGO Report #: [id number] Location: ER Room/Bed: Procedure: [id number] CT/CT BRAIN WO Exam Date: Exam Time: [...] 10:57 AM Dictated By: JANIS BLAKE MD 1057 Transcribed By: JENIFFER on 12/15/191056 COPY TO: SULEMAN SANTIAGO CHEST SINGLE (PORTABLE) 2019-12-15 09:19:00 [place] [address] Patient Name: VERONICA GREENWOOD MR #: [id number] : 1965 Age/Sex: 54/F Req #: [id number] Adm Physician: Ordered by: SULEMAN SANTIAGO Report #: [id number] Location: ER Room/Bed: Procedure: [id number] DX/CHEST SINGLE (PORTABLE) Exam Date: 12/15/19 Exam Time: 826 REPORT STATUS: Signed Examination: Single AP view [...] Transcribed By: JENIFFER on 12/15/19921 COPY TO: SULEMAN SANTIAGO US ABDOMEN COMPLETE 2019-08-09 14:40:00 [place] [address] Patient Name: VERONICA GREENWOOD MR #: [id number] : 1965 Age/Sex: 54/F Req #: [id number] Adm Physician: Ordered by: NEEL DAO MD Report #: [id number] Location: Room/Bed: Procedure: [id number] US/US ABDOMEN COMPLETE Exam Date: 08/09/19 Exam [...] (test code = 2951-2) 128 136-[address] [facility] Kvvsp2481-48-34 22:42:00* Test Item Value Reference Range Interpretation Comments Potassium Level (test code = 2823-3) 4.5 3.5-5.[address] [facility]Chloride Wccjx0101-21-95 22:42:00* Test Item Value Reference Range Interpretation Comments Chloride Level (test code = 2075-0) 95 98-[address] [facility] HospitalCarbon Dioxide Xddrv8607-13-92 22:42:00* Test Item Value Reference Range Interpretation Comments Carbon Dioxide Level (test code = 2028-9) 25 22-[address] [facility] HospitalAnion Cip7306-29-56 22:42:00* Test Item Value Reference Range Interpretation Comments Anion Gap (test code = 85047-7) 12.5 8-[address] [facility]Blood Urea Otytnuye5744-99-16 22:42:00* Test Item Value Reference Range Interpretation Comments Blood Urea Nitrogen (test code = 3094-0) 30 7-[address] [facility] HospitalCreatinine2019-03-08 22:42:00* Test Item Value Reference Range Interpretation Comments Creatinine (test code = 2160-0) 1.14 0.57-1.[address] [facility] HospitalBUN/Creatinine Ckali1905-04-89 22:42:00* Test Item Value Reference Range Interpretation Comments BUN/Creatinine Ratio (test code = 3097-3) 26 6-[address] [facility] HospitalEstimat Glomerular Filtration Rate 2018-11-06 22:42:00* Test Item Value Reference Range Interpretation Comments Estimat Glomerular Filtration Rate (test code = 862379513) 50 >60 L Ranges were taken from the National Kidney Disease Education Program and the [facility] Kidney Foundation literature.Reference ranges:60 or greater: Tnhdsm58-18 ( for 3 consecutive months): Chronic kidney disease 15 or less: Kidney failureM[address] [facility] HospitalGlucose Szbpb4842-46-76 22:42:00* Test Item Value Reference Range Interpretation Comments Glucose Level (test code = VUQ5876) 511 74-118 HH Results repeated and called to SHIMA ROJO at 2238 on 11/06/18 by Inder Vaz. Read back and verified.[facility] HospitalCalcium Lkslw8790-92-90 22:42:00* Test Item Value Reference Range Interpretation Comments Calcium Level (test code = 45778-5) 10.0 8.4-10.[address] [facility] HospitalTotal Zmzkvnolw9304-69-49 22:42:00* Test Item Value Reference Range Interpretation Comments Total Bilirubin (test code = 1975-2) 0.3 0.2-1.[address] [facility] HospitalAspartate Amino Transf (AST/SGOT) 2018-11-06 22:42:00* Test Item Value Reference Range Interpretation Comments Aspartate Amino Transf (AST/SGOT) (test code = Aspartate Amino Transf (AST/SGOT)) 17 5-[address] [facility] HospitalAlanine Aminotransferase (ALT/SGPT) 2018-11-06 22:42:00* Test Item Value Reference Range Interpretation Comments Alanine Aminotransferase (ALT/SGPT) (test code = 1742-6) 19 0-[address] [facility] HospitalTotal Vugtxhr5335-72-81 22:42:00* Test Item Value Reference Range Interpretation Comments Total Protein (test code = 2885-2) 7.8 6.5-8.[address] [facility] HospitalAlbumin2019-03-08 22:42:00* Test Item Value Reference Range Interpretation Comments Albumin (test code = 1751-7) 3.2 3.5-5.[address] [facility] HospitalGlobulin2019-03-08 22:42:00* Test Item Value Reference Range Interpretation Comments Globulin (test code = 95936-8) 4.6 2.3-3.[address] [facility] HospitalAlbumin/Globulin Mvrur4738-25-69 22:42:00 * Test Item Value Reference Range Interpretation Comments Albumin/Globulin Ratio (test code = 1759-0) 0.7 0.8-2.[address] [facility] HospitalAlkaline Zfggjtdhnpm7994-17-21 22:42:00* Test Item Value Reference Range Interpretation Comments Alkaline Phosphatase (test code = 6768-6) 181 40-[address] [facility] HospitalWhite Blood Gvpzx7427-79-15 22:27:00* Test Item Value Reference Range Interpretation Comments White Blood Count (test code = 6690-2) 8.07 4.8-10.[address] [facility] HospitalRed Blood Ecwgq7513-78-48 22:27:00* Test Item Value Reference Range Interpretation Comments Red Blood Count (test code = 789-8) 4.47 3.6-5.[address] [facility] HospitalHemoglobin2019-03-08 22:27:00* Test Item Value Reference Range Interpretation Comments Hemoglobin (test code = 63893-1) 11.7 12.0-16.[address] [facility] HospitalHematocrit2019-03-08 22:27:00* Test Item Value Reference Range Interpretation Comments Hematocrit (test code = 4544-3) 35.6 34.2-44.[address] [facility] HospitalMean Corpuscular Laamzr3858-24-37 22:27:00* Test Item Value Reference Range Interpretation Comments Mean Corpuscular Volume (test code = 787-2) 79.6 81-[address] [facility] HospitalMean Corpuscular Apcxnogews0614-60-93 22:27:00* Test Item Value Reference Range Interpretation Comments Mean Corpuscular Hemoglobin (test code = 785-6) 26.2 28-[address] [facility] HospitalMean Corpuscular Hemoglobin Concent 2018-11-06 22:27:00* Test Item Value Reference Range Interpretation Comments Mean Corpuscular Hemoglobin Concent (test code = 786-4) 32.9 31-[address] [facility] HospitalRed Cell Distribution Oxtxi1070-38-49 22:27:00* Test Item Value Reference Range Interpretation Comments Red Cell Distribution Width (test code = 94384-2) 13.3 11.7 -14.[address] [facility] HospitalPlatelet Rfuxq8273-74-19 22:27:00* Test Item Value Reference Range Interpretation Comments Platelet Count (test code = 777-3) 236 140-[address] [facility] HospitalNeutrophils (%) (Auto)2018-11-06 22:27:00 * Test Item Value Reference Range Interpretation Comments Neutrophils (%) (Auto) (test code = 66400-8) 60.1 38.7-80.[address] [facility] HospitalLymphocytes (%) (Auto)2018-11-06 22:27:00 * Test Item Value Reference Range Interpretation Comments Lymphocytes (%) (Auto) (test code = 736-9) 31.7 18.0-39.[address] [facility] HospitalMonocytes (%) (Auto)2018-11-06 22:27:00* Test Item Value Reference Range Interpretation Comments Monocytes (%) (Auto) (test code = 5905-5) 5.3 4.4-11.[address] [facility] HospitalEosinophils (%) (Auto)2018-11-06 22:27:00 * Test Item Value Reference Range Interpretation Comments Eosinophils (%) (Auto) (test code = 713-8) 2.1 0.0-6.[address] [facility] HospitalBasophils (%) (Auto)2018-11-06 22:27:00* Test Item Value Reference Range Interpretation Comments Basophils (%) (Auto) (test code = 706-2) 0.4 0.0-1.[address] [facility] HospitalIM GRANULOCYTES %2018-11-06 22:27:00* Test Item Value Reference Range Interpretation Comments IM GRANULOCYTES % (test code = IM GRANULOCYTES %) 0.4 0.0- 1.[address] [facility] HospitalNeutrophils # (Auto)2018-11-06 22:27:00* Test Item Value Reference Range Interpretation Comments Neutrophils # (Auto) (test code = 751-8) 4.9 2.1-6.[address] [facility] HospitalLymphocytes # (Auto)2018-11-06 22:27:00* Test Item Value Reference Range Interpretation Comments Lymphocytes # (Auto) (test code = 40279-9) 2.6 1.0-3.[address] [facility] HospitalMonocytes # (Auto)2018-11-06 22:27:00* Test Item Value Reference Range Interpretation Comments Monocytes # (Auto) (test code = 742-7) 0.4 0.2-0.[address] [facility] HospitalEosinophils # (Auto)2018-11-06 22:27:00* Test Item Value Reference Range Interpretation Comments Eosinophils # (Auto) (test code = 711-2) 0.2 0.0-0.[address] [facility] HospitalBasophils # (Auto)2018-11-06 22:27:00* Test Item Value Reference Range Interpretation Comments Basophils # (Auto) (test code = 704-7) 0.0 0.0-0.[address] [facility] HospitalAbsolute Immature Granulocyte (auto 2018-11-06 22:27:00* Test Item Value Reference Range Interpretation Comments Absolute Immature Granulocyte (auto (tapan t code = Absolute Immature Granulocyte (auto) 0.[address] [facility]CR - XRAY LUMBOSACRAL XR 2/3 VIEWS 2018-02-13 [...] osteoarthritis and disc degeneration.CHEST XRAY LINE PLACEMENT [place] [address] Patient Name: VERONICA GREENWOOD MR #: [id number] : 1965 Age/Sex: 52/F Req #: [id number] Adm Physician: CLARISA BOWMAN MD Ordered by: CLARISA BOWMAN MD Report #: [id number] Location: MED/SURG2 Room/Bed: [facility] Procedure: [id number] D X/CHEST XRAY LINE PLACEMENT Exam Date: [...] 6:22 PM Dictated By: PILLO PARSONS MD E lectronically Signed By: PILLO PARSONS MD on 08/09/171821 Transcribed By: TORSTEN Roper on 08/09/171821 COPY TO: CLARISA BOWMAN MD CHEST SINGLE (PORTABLE) [place] [address] Patient Name: VERONICA GREENWOOD MR #: [id number] : 1965 Age/Sex: 52/F Req #: [id number] Adm Physician: CLARISA BOWMAN MD Ordered by: CLARISA BOWMAN MD Report #: [id number] Location: [facility] Room/Bed: [place] [address] Procedure: [id number] D X/CHEST SINGLE (PORTABLE) Exam Date: 08/06/17 [...] was generated with voice-recognition technology. Errors in pipeline superintendent division can occur. Please interpret accordingly and contact a radiologist if there are any questions regarding the report. Signed by: Dr. Verito De Paz M.D. on 08/06/2017 9:19 PM Dictated By: VERITO DE PAZ MD 18 Transcribed B y: JENIFFER on 08/06/172118 COPY TO: CLARISA BOWMAN MD MRI PELVIS WOW [place] [address] Patient Name: VERONICA GREENWOOD MR #: [id number] : 1965 Age/Sex: 51/F Req #: [id number] Adm Physician: Ordered by: CLARISA BOWMAN MD Report #: [id number] Location: MRI Room/Bed: Procedure: [id number] MRI/MRI PELVIS WOW Exam Daniel e: Exam [...] May 05, 2017. Lumbar spine MRI May 07 017. FINDINGS: Bones: No focal or infiltrative bone [...] 12:09 PM Dictated By: SALTY Cadena DO Transcribed By: JENIFFER on 09/22/17 1209 COPY TO: CLARISA BOWMAN MD MRI SPINE LUMBAR WOW [place] [address] Patient Name: VERONICA GREENWOOD MR #: [id number] : 1965 Age/Sex: 51/F Req #: [id number] Adm Physician: CLARISA BOWMAN MD Ordered by: JAMES ALVA MD Report #: [id number] Location: MED/SURG3 Room/Bed: [facility] Procedure: [id number] MR I/MRI SPINE LUMBAR WOW Exam Date: [...] PM Dictated By: ZEESHAN LY MD, MD 5258 Transcribed By: JENIFFER on 05/07/17 1 854 COPY TO: JAMES ALVA MD SPECIAL PROCEDURE IN NURSERY SUPERVISOR [place] [address] Patient Name: VERONICA GREENWOOD MR #: [id number] : 1965 Age/Sex: 51/F Req #: [id number] Adm Physician: CLARISA BOWMAN MD Ordered by: JAMES ALVA MD Report #: [id number] Locati on: MED/SURG3 Room/Bed: 296-1 Procedure: [id number] IR /SPECIAL PROCEDURE IN NURSERY SUPERVISOR Exam Date: Exam Time : REPORT STATUS: [...] administer ed: None Specimens: None Implants: 9 Thai dual lumen tunneled central veno us catheter [...] The needle was exchanged for a 5 Thai micropuncture sheath. I ntravascular length to the [...] h was then exchanged for a 10 Thai peel-away sheath over the wire. The wire [...] n. IMPRESSION: Successful placement of a 9 Thai, dual lumen tunneled central venous catheter for purposes of long-term intravenous antibiotic admi nistration. Signed by: Dr. Andi Schultz M.D. 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 The patie nt's heart rate and pulse oximetry were continuously monitored by the [facility] radiology nurse. Blood pressure was monitored at 5 minute intervals. Additional Medications: Lidocaine 2% for local anesthesia Fluoroscopy time: 1.5 minutes Dose-area Product: 558 cGycm2. Contrast used: None Est imated blood loss: Less than 5 cc Blood products administered: None Specimen s: None Implants: 9 Thai dual lumen tunneled central venous catheter Condi [...] The needle was exchanged for a 5 Thai micropuncture sheath. Intravascular length to the upper [...] was then exchange d for a 10 Thai peel-away sheath over the wire. The wire [...] vein. IMPRESSION: Successful placement of a 9 Thai, dual lumen tunneled central venous cat heter for purposes of long-term intravenous antibiotic administration. Si gned by: Dr. Andi Schultz M.D. on 05/06/2017 3:17 PM Dictated By: ANDI SCHULTZ MD 1115 Transcri bed By: JENIFFER on 05/29/17 1115 COPY TO: JAMES ALVA MD BONE SCAN, 3 PHASE [place] [address] Patient Name: VERONICA GREENWOOD MR #: [id number] : 1965 Age/Sex: 51/F Req #: [id number] Adm Physician: CLARISA BOWMAN MD Ordered by: ANDREW DAO MD Report #: [id number] Location: MED/SURG3 Room/Bed: 2961 Procedure: [id number] NM/BONE SCAN, 3 PHASE Exam Date: 05/05/17 [...] 7:50 PM Dictated By: VIKI MCCULLOUGH MD 1948 Transcribed By: JENIFFER on 05/05/171949 COPY TO: ANDREW DAO MD CT ABDOMEN/PELVIS W [place] [address] Patient Name: VERONICA GREENWOOD MR #: [id number] : 1965 Age/Sex: 51/F Req #: [id number] Adm Physician: CLARISA BOWMAN MD Ordered by: SAMMI BARBER MD Report #: [id number] Location: MED/SURG3 Room/Bed: [facility] Procedure: [id number] C T/CT ABDOMEN/PELVIS W Exam Date: 05/04/17 [...] 1137 Transcribed By: JENIFFER on 0 05/04/17 0874 COPY TO: SAMMI BARBER MD
[2020-02-09] MEDS: SODIUM CHLORIDE 0.9% 1000ML 1,000 ML IV SCH ×3 (04:30→22:12)
--- NOTE | 2020-02-09 04:36 | NUR ---
{null, PT PLACED ON BEDPAN, PT UNABLE TO GIVE URINE AT THIS TIME }
--- NOTE | 2020-02-09 06:14 | NUR ---
{null, PT SLEEPING, VITAL SIGNS STABLE, PT AROUSABLE TO VOICE, PT VOICES NO COMPLAINTS AT THIS TIME. }
--- NOTE | 2020-02-09 06:55 | NUR ---
{null, REPORT TO LORI MCKEON ALL QUESTIONS ANSWERED }
[2020-02-09 09:21] LABS: AMPHETAMINES SCREEN,URINE NEGATIVE (NEGATIVE); BENZODIAZEPINES SCREEN,URINE NEGATIVE (NEGATIVE); BILIRUBIN,URINE NEGATIVE (NEGATIVE); CLARITY,URINE CLEAR (CLEAR); COLOR,URINE YELLOW (YELLOW); KETONES,URINE NEGATIVE (NEGATIVE); LEUKOCYTE ESTERASE ,URINE TRACE (NEGATIVE); NITRITE,URINE NEGATIVE (NEGATIVE); PHENCYCLIDINE SCREEN,URINE NEGATIVE (NEGATIVE); PROTEIN,URINE DIPSTICK 1+ (NEGATIVE); URINE UROBILINOGEN 0.2 mg/dL (0.2 - 1)
[2020-02-09 09:26] LABS: BACTERIA,URINE MODERATE /HPF; EPITHELIAL CELLS,URINE FEW /LPF; RBC,URINE 0-5 /HPF (0-5); WBC,URINE (MAN) 0-5 /HPF (0-5)
[2020-02-09 10:00] LABS: CREATINE KINASE MB 0.9 ng/mL (0-5.0)
[2020-02-09 20:00] VITALS: BP 151/85
[2020-02-09 20:51] VITALS: BP 151/85
--- NOTE | 2020-02-09 21:20 | NUR ---
{null, CALLED MD SILVA REGARDING CONSULT. AWAITING CALL BACK. }
--- NOTE | 2020-02-09 21:45 | NUR ---
{null, SPOKE WITH MD SARABIA, COVERING FOR MD SILVA, CONCERNING CONSULTATION. NEW ORDERS RECEIVED. }
--- NOTE | 2020-02-09 22:30 | Consultation ---
DATE OF CONSULTATION: Initial Nephrology Consultation Report REASON FOR CONSULTATION: Hyperkalemia, elevated creatinine. HISTORY OF PRESENT ILLNESS: Ms. Jefferson is a 54-year-old female, who presented to the hospital because of just she said that she is from a prison and she had some dizziness. I am being asked to see her because her serum creatinine is 1.6 and her potassium is 5.2. The patient is as kind of a poor historian. She does not know what her medical issues are. PAST MEDICAL HISTORY: The patient has: 1. History of diabetes. 2. Hypertension. 3. Congestive heart failure. 4. Asthma. 5. Depression. 6. Coronary artery disease. According to the chart, she has a history of some alcoholic cirrhosis, history of Clostridium difficile. PAST SURGICAL HISTORY: The patient has had left mastectomy and the right hand has been amputated. MEDICATIONS: Right now, no medications. REVIEW OF SYSTEMS: As per HPI. SOCIAL HISTORY: No smoking. No EtOH. PHYSICAL EXAMINATION: VITAL SIGNS: Blood pressure is 124/76, pulse 89, and respirations 13. GENERAL: The patient is in no acute distress. She is somewhat disheveled in appearance. HEENT: No increased JVD. CARDIOVASCULAR: Regular rate and rhythm. LUNGS: Clear to auscultation. ABDOMEN: Positive bowel sounds. Nontender, nondistended. EXTREMITIES: The patient's right hand is amputated. There is no edema of the legs. BREASTS: She has a mastectomy of the left breast. LABORATORY RESULTS: Hemoglobin and hematocrit 9.8 and 31 respectively, white count 8.6, platelet count 197,000. Urinalysis shows 1+ protein, everything else is moderate bacteria, but no white cells or red cells. Microbiology, blood cultures are pending. Sodium 142, potassium 5.2, chloride 111, bicarbonate 21, BUN and creatinine 39 and 1.6 respectively. Albumin 3.4. Urine drug abuse screen was negative. Coronavirus test is pending. IMPRESSION/PLAN: 1. Chronic kidney disease stage 3. I do not have any really old values to go by, so I do not know what her baseline creatinine is. Actually in April 2019, the patient's serum creatinine was 1.33 at that time, so it looks like this is kind of progressive chronic kidney disease. Chest x-ray does shows no abnormality. Creatinine is 1.6. 2. Hyperkalemia. The patient has mild hyperkalemia. I will give some Kayexalate for this. I do not have a list of her home meds, so she is getting IV fluids. We will continue to do this. 3. History of hypertension. The patient's medicine needs to be ascertained so we can decide what would that needs to be on. We will check potassium again tomorrow. It is 5.2. We will give her Kayexalate today. NSAIDs, LIND-2 inhibitors, IV contrast should be avoided. I will follow the patient with you. Thank you, Dr. Jain, for this consultation. Ather MD ANTIONE Arceo/JESUS /[id number]
[2020-02-10] VITALS (7 sets, daily range): BP systolic 130–149; BP diastolic 77–90
[2020-02-10] MEDS ORDERED: VENLAFAXINE HCL75 M2 PO (02:35)
[2020-02-10] MEDS ORDERED: METOPROLOL SUCC50 MG PO (02:35)
[2020-02-10] MEDS ORDERED: QUETIAPINE FUMA25 MG PO (02:35)
[2020-02-10] MEDS ORDERED: LEVEMIR FL100 UNIT/1 SC (02:35)
[2020-02-10] MEDS ORDERED: ASPIR 8181 MG PO (02:35)
[2020-02-10 05:32] LABS: BASOPHILS % 0.6 % (0.0-1.0); EOSINOPHILS # (AUTO) 0.2 (0.0-0.4); EOSINOPHILS % 4.4 % (0.0-6.0); HEMATOCRIT 29.5 % (34.2-44.1); HEMOGLOBIN 9.3 g/dL (12.0-16.0); LYMPHOCYTES % 38.4 % (18.0-39.1); MEAN CORPUSCULAR HEMOGLOBIN 28.2 pg (28-32); MEAN CORPUSCULAR HGB CONC 31.5 g/dL (31-35); MEAN CORPUSCULAR VOLUME 89.4 fL (81-99); MONOCYTES # (AUTO) 0.4 (0.2-0.8); MONOCYTES % 6.8 % (4.4-11.3); NEUTROPHILS # (AUTO) 2.6 (2.1-6.9); NEUTROPHILS % 49.6 % (38.7-80.0); PLATELET COUNT 167 x10e3/uL (140-360); RED CELL DISTRIBUTION WIDTH 15.9 % (11.7-14.4)
[2020-02-10] MEDS: SODIUM CHLORIDE 0.9% 1000ML 1,000 ML IV SCH ×3 (05:45→22:19)
[2020-02-10 05:49] LABS: ALANINE AMINOTRANSFERASE 16 IU/L (0-55); ALBUMIN/GLOBULIN RATIO 0.8 (0.8-2.0); ALKALINE PHOSPHATASE 125 IU/L (40-150); ANION GAP 11.4 mmol/L (8-16); BLOOD UREA NITROGEN 22 mg/dL (7-26); BUN/CREATININE RATIO 23 (6-25); CALCIUM 8.6 mg/dL (8.4-10.2); CARBON DIOXIDE 18 mmol/L (22-29); CHLORIDE 116 mmol/L (98-107); CREATININE, SERUM 0.95 mg/dL (0.57-1.11); EST GLOMERULAR FILTRATION RATE > 60 ML/MIN (60-); GLUCOSE 137 mg/dL (74-118); POTASSIUM 4.4 mmol/L (3.5-5.1); SODIUM 141 mmol/L (136-145)
[2020-02-10 06:33] LABS: CREATINE KINASE MB 0.7 ng/mL (0-5.0)
--- NOTE | 2020-02-10 07:09 | NUR ---
{null, REPORT GIVEN TO DAYSORFT NURSE. AAOX3. RESTING IN BED. IN STABLE CONDITION. NO SIGNS OF IV INFILTRATION. BED LOCKED AND IN LOW POSITION. CALL LIGHT WITHIN REACH. BED ALARM ACTIVATED. }
--- NOTE | 2020-02-10 11:00 | NUR ---
{null, WOUND CARE CONSULT FOR 54 YO FEMALE HX OFDIZZINESS AND RENAL FAILURE EBER 20 ON CONSERVATIVE PUP STATUS AND INTERVENTIONS AND VISCO MATTRESS LABS: WBC-5.18 HGB_9.3 GLUCOSE-137 SKIN ASSESSMENT COMPLETE PATIENT PRESENTS WITH LEFT FOOT LATERAL ULCERATION 1CM X1CM X.1CM 20 % SLOUGH TO BASE OF WOUND LEFT FOOT ULCERATION LOWER PLANTAR SURFACE 10CM X4CM X.2CM 20 % SLOUGH LEFT FOOT UPPER PLANTAR SURFACE ULCERATION 3CM X1CM X.1CM 20% SLOUGH RECOMMENDATIONS: NURSING TO CONTINUE TO MAINTAIN CONSERVATIVE PUP STATUS AND INTERVENTIONS AND VISCO MATTRESS NURSING TO CONTINUE TO ASSIST PATIENT OUT OF BED FOR MEALS AND MUCH TOLERATED NURSING TO CONTINUE TO ASSIST PATIENT NEEDED WITH MEALS AND NUTRITIONAL SUPPLEMENTS TO ENSURE PROPER REQUIREMENTS FOR HEALING NURSING TO CONTINUE TO OFFLOAD FEET AND HEELS NEEDED WITH PILLOW SUSPENSION WHEN IN BED NURSING TO CLEAN LEFT FOOT LATERAL ULCERATION, LEFT FOOT ULCERATION LOWER PLANTAR SURFACE AND LEFT FOOT UPPER PLANTAR SURFACE ULCERATION WITH NORMAL SALINE DAILY AND APPLY SANTYL OINTMENT AND FOAM DRESSING PAD COVER WITH 4X4'S WRAP WITH KERLIX Addendum: 02/10/20 at 1109 by Brian Guidry RN Amended: Links added. }
[2020-02-10] MEDS ORDERED: INSULIN GLARGINE 100 UNITS/ML VIAL SQ SCH (17:00)
[2020-02-10] MEDS ORDERED: INSULIN DETEMIR 50 UNIT SC SCH (17:00)
--- NOTE | 2020-02-10 19:29 | NUR ---
{null, walking rounds complete, pt stable at shift change. report given to oncoming nurse. }
[2020-02-10] MEDS ORDERED: VENLAFAXINE HCL 75 MG CAPCR PO SCH (21:00)
[2020-02-10] MEDS ORDERED: QUETIAPINE FUMARATE 25 MG TAB PO SCH (21:00)
[2020-02-11] VITALS: BP 125/57
[2020-02-11 04:00] VITALS: BP 140/78
--- NOTE | 2020-02-11 07:15 | NUR ---
{null, REPORT GIVEN TO DAYSHIFT NURSE. RESTING IN BED. IN STABLE CONDITION. NO SIGNS OF IV INFILTRATION. BED LOCKED AND IN LOW POSITION. CALL LIGHT WITHIN REACH. }
[2020-02-11 07:56] VITALS: BP 122/77
[2020-02-11 08:41] VITALS: BP 122/77
[2020-02-11] MEDS ORDERED: COLLAGENASE 5 GM TUBE TP SCH (09:00)
[2020-02-11] MEDS ORDERED: METOPROLOL SUCCINATE 50 MG TAB XL PO SCH (09:00)
[2020-02-11] MEDS ORDERED: ASPIRIN 81 MG CHEW TAB PO SCH (09:00)
[2020-02-11 11:48] VITALS: BP 129/78
--- NOTE | 2020-02-11 12:23 | NUR ---
{null, Per Dr rimma ruiz (cardio) patient is cleared to go, discharge order recvd from Dr Surinder Jain, dressing changed on left foot }
--- NOTE | 2020-02-11 14:11 | NUR ---
{null, Patient discharged home, Dressing on left foot intact, denies any pain or SOB, IV removed with tip intact, no ss of infiltration. family here to pick the patient, tele box returned }
== END 2020-02-11 14:05 | disposition home or self-care (01) ==
LOC: ER 00:03 → ERHOLD 03:15 → MED/SURG 20:51
DX: N17.9 Acute kidney failure, unspecified (principal); R42 Dizziness and giddiness; I50.9 Heart failure, unspecified; J45.909 Unspecified asthma, uncomplicated; E11.42 Type 2 diabetes mellitus with diabetic polyneuropathy; K21.9 Gastro-esophageal reflux disease without esophagitis; Z95.5 Presence of coronary angioplasty implant and graft; I25.10 Atherosclerotic heart disease of native coronary artery without angina pectoris; Z90.49 Acquired absence of other specified parts of digestive tract; R55 Syncope and collapse; Z85.3 Personal history of malignant neoplasm of breast; Z90.12 Acquired absence of left breast and nipple; Z89.111 Acquired absence of right hand; I13.0 Hypertensive heart and chronic kidney disease with heart failure and stage 1 through stage 4 chronic kidney disease, or unspecified chronic kidney disease; E11.22 Type 2 diabetes mellitus with diabetic chronic kidney disease; N18.3 Chronic kidney disease, stage 3 (moderate); E87.5 Hyperkalemia; Z79.82 Long term (current) use of aspirin; Z79.4 Long term (current) use of insulin
CPT/HCPCS: 36415 ×3; 70450; 71045; 80053 ×2; 80307; 81001; 82550 ×2; 82553 ×2; 82948 ×3; 83605; 83735; 83880; 84484 ×2; 85025 ×2; 87040; 87635; 93005; 97602; 99251; 99284; G0378 ×3; J7030 ×3

== ENCOUNTER 2020-04-01 15:15 | Emergency (ER) | payer OTHER ==
[~2020-04-01] VITALS: Ht 162.6 cm; Wt 72.6 kg
[~2020-04-01 15:15] MED LIST changes: +GABAPENTIN300 MG PO; +LEVEMIR FL100 UNIT/1 SC; +LIPITOR20 MG PO; +LISINOPRIL5 MG PO
--- NOTE | 2020-04-01 15:49 | Emergency Department Note ---
History of Present Illnes History of Present Illness Chief Complaint: redness to right forearm stump History of Present Illness This is a 54 year old female . Arrival Mode: Car Production Editor Required: No Onset (how long ago): hour(s) (noted this morning) Location: right forearm stump Quality: red and painful Radiation: Reports non-radiation Severity: moderate Onset quality: sudden Timing of current episode: constant Progression: unchanged Chronicity: new Relieving factors: none Exacerbating factors: none Treatments prior to arrival: none Risk factors: long standing type 1 diabetes mellitus Past Medical/Family History Physician Review I have reviewed the patient's past medical and family history. Any updates have been documented here. Past Medical History Past Medical History: Hypertension, Diabetes, CHF, Asthma, CAD, Depression, Other Mental Illness Other Medical History: ASTHMA, CIRRHOSIS, HX OF HEP C AND MERSA TYPE 1 DM, IBS , CAD, 2XSTENTS HEART, BIPOLAR DEPRESSION, NUEROPATHY Past Surgical History: Cholecysctectomy, Hysterectomy, PCI, Mastectomy Other Surgery: R HAND AMPUTATION, L BREAST REMOVAL Social History Smoking Cessation: Never Smoker Alcohol Use: Occasional (admits to heavy alcohol use in the past) Any Illegal Drug Use: No TB Exposure/Symptoms: No Physically hurt or threatened: No Other Last Tetanus: UTD Any Pre-Existing Lines (PICC,: No Is patient up to date on immun: No Review of Systems ROS Narrative temp highest 99 F Review of Systems Constitutional: Reports no symptoms Cardiovascular: Reports no symptoms Respiratory: Reports no symptoms Gastrointestinal: Reports no symptoms Genitourinary: Reports no symptoms Musculoskeletal: Reports no symptoms Integumentary: Reports change in color Neurological: Reports paresthesia (perpheral neuropathy) Psychological: Reports no symptoms Endocrine: Reports no symptoms Hematological/Lymphatic: Reports no symptoms Physical Exam Related Data Allergies: Coded Allergies: codeine (Verified Allergy, Unknown, 12/16/19) hydrocodone (Verified Adverse Reaction, Mild, SICK, 11/06/18) Vital signs reviewed: Yes Physical Exam CONSTITUTIONAL Constitutional: Present well-developed, Present well-nourished HENT HENT: Present normocephalic, Present atraumatic EYES Eyes: Reports PERRL, Reports conjunctivae normal, Reports EOM normal, Reports lids normal NECK Neck: Present ROM normal, Present supple PULMONARY Pulmonary: Present effort normal, Present breath sounds normal CARDIOVASCULAR Cardiovascular: Present regular rhythm, Present heart sounds normal, Present intact distal pulses, Present capillary refill normal, Present normal rate GASTROINTESTINAL Abdominal: Present soft, Present nontender, Present bowel sounds normal GENITOURINARY SKIN Skin: Present warm, Present erythema (stump at distal right forearm with erythema ) MUSCULOSKELETAL Musculoskeletal: Present ROM normal NEUROLOGICAL Neurological: Present alert, Present oriented x 3, Present DTRs normal PSYCHOLOGICAL Psychological: Present mood/affect normal, Present behavior normal, Present thought content normal, Present judgement normal Results Laboratory Laboratory glucose 204 BUN 26 Creatine 1.2 rest of chemistries WNL Lab results reviewed: Yes Laboratory comments cbc unremarkable Imaging Imaging results reviewed: Yes Impressions soft tissue swellinbg and edema of the amputated stump no evidence of osteomyelitis Assessment & Plan Medical Decision Making MDM cellulitis left forearm stump Assessment & Plan Final Impression: (1) Cellulitis of forearm, right Depart Disposition: HOME, SELF-[facility] Meds Active Scripts Cephalexin Monohydrate (KEFLEX) 500 Mg Capsule, 500 MG PO QID for cellulitis for 10 Days, #40 0 Refills Prov:SANCHO DUMONT MD 04/01/20 Reported Medications Gabapentin (GABAPENTIN) 300 Mg Capsule, 300 MG PO BID, #60 CAP 03/31/20 Atorvastatin Calcium (LIPITOR) 20 Mg Tablet, 20 MG PO DAILY, #30 TAB 03/31/20 Lisinopril (LISINOPRIL) 5 Mg Tablet, 5 MG PO DAILY, #60 TAB 03/31/20 Venlafaxine Hcl (VENLAFAXINE HCL ER) 75 Mg Tab.er.24, 75 MG PO HS 02/10/20 Quetiapine Fumarate (QUETIAPINE FUMARATE) 25 Mg Tablet, 25 MG PO HS 02/10/20 Metoprolol Succinate (METOPROLOL SUCCINATE) 50 Mg Tab.er.24h, 50 MG PO DAILY, MG 02/10/20 Insulin Detemir (Levemir Flextouch) 100 Unit/1 Ml Insuln.pen, 40 UNITS SC BID, UNIT 02/10/20 Aspirin (ASPIR 81) 81 Mg Tablet.dr, 81 MG PO DAILY 02/10/20 SANCHO DUMONT MD Apr 01, 2020 15:49
--- NOTE | 2020-04-01 15:50 | NUR ---
wound to right heal bandaged after assessment completed by dr garcia.
--- OUTSIDE RECORDS SUMMARY | 2020-04-01 16:10 | XMS REPORT | Continuity of Care Document ---
Author Author [facility] t Organization [facility] Address [address] [place] [address] Phone Unavailable Care Team Providers Care Cruise Agent Name Role Phone NO, PCP PCP Unavailable GALLAGHER, J LUIS Attphys Unavailable GALLAGHER, PILLO Attphys Unavailable DAONEEL Magallanes Attphys Unavailable ORAHOOD, MONTE Attphys Unavailable GALLAGHER, PILLO Admphys Unavailable ORAHOOD, MONTE Admphys Unavailable Payers Payer Name Policy Type Policy Number Effective Date Expiration Date [facility] [id number] [facility] Ppo [id number] 2015 00:00:00 [facility] Problems Condition Name Condition Details Condition Category Status Onset Date Resolution Date Last Treatment Date Treating Clinician Comments Source Chest pain, rule out acute myocardial infarction Problem Active [facility] Sepsis Problem Active [facility] Hyperkalemia Problem Active [facility] Dizziness Problem Active [facility] Abnormal electrocardiography Problem Active [facility] Allergies, Adverse Reactions, Alerts Allergy Name Allergy Type Status Severity Reaction(s) Onset Date Inacti ve Date Treating Clinician Comments Source Codeine Allergy to substance Active 2019-12-16 00:00:00 [facility] Hydrocodone Propensity to adverse reactions Active Mild [facility]IC K 2018-11-06 00:00:00 [facility] hydrocodone DA Active [place] 2017-07-15 00:00:00 [facility] Social History Social Habit Start Date Stop Date Quantity Comments Source Sex Assigned At 1965 00:00:00 1965 00:00:00 Female [facility] Medications Ordered Medication Name Filled Medication Name Start Date Stop Da te Current Medication? Ordering Clinician Indication Dosage Frequency Signature (SIG) Comments Components Source Aspirin (Aspir 81) 81 Mg TABLET. Aspirin (Aspir 81) 81 Mg TABLET. Yes 81 Daily [facility] Insulin Detemir (Levemir Flextouch) 100 Unit/[address]PEN Insulin Detemir (Levemir Flextouch) 100 Unit/1 Ml INSULN.PEN Yes 50 Twice A Day [facility] Metoprolol Succinate Metoprolol Succinate Yes 50 Daily [facility] Quetiapine Fumarate Quetiapine Fumarate Yes 25 Bedtime [facility] Venlafaxine Hcl (Venlafaxine Hcl Er) 75 Mg TAB.ER.24 V enlafaxine Hcl (Venlafaxine Hcl Er) 75 Mg TAB.ER.24 Yes 75 B edtime [facility] Aspirin (Aspir 81) 81 Mg TABLET. Aspirin (Aspir 81) 81 Mg TABL ET. 2019-12-25 00:00:00 No 81 Daily [facility] Insulin Detemir (Levemir) 100 Unit/1 Ml VIAL Insulin D etemir (Levemir) 100 Unit/1 Ml VIAL 2019-12-25 00:00:00 No 50 Twice A D ay [facility] Metoprolol Succinate Metoprolol Succinate 2019-12-25 00:00:00 No 50 Daily [facility] Pregabalin (Lyrica) 75 Mg CAP Pregabalin (Lyrica) 75 Mg CAP 2019-12-25 00:00:00 No 75 Twice A Day [facility] Quetiapine Fumarate Quetiapine Fumarate 2019-12-25 00:00:00 No Daily [facility] Venlafaxine Hcl (Venlafaxine Hcl Er) 75 Mg TAB.ER.24 V enlafaxine Hcl (Venlafaxine Hcl Er) 75 Mg TAB.ER.24 2019-12-25 00:00:00 No 75 Daily [facility] Levamir Levamir 2019-04-30 00:00:00 No 10 Twice A D ay [facility] Lisinopril Lisinopril 2019-04-30 00:00:00 No 40 Radha ly [facility] Spironolactone Spironolactone 2019-04-30 00:00:00 No 100 Daily [facility] Venlafaxine Hcl Venlafaxine Hcl 2019-04-30 00:00:00 No Daily [facility] Hydrocodone Bit/Acetaminophen (Hydrocodone-Apap 10-325 Tablet) 1 Each TABLET Hydrocodone Bit/Acetaminophen (Hydrocodone-Apap 10-325 Tablet) 1 Each TABLET 2017-05-04 00:00:00 No 10 As Needed [facility] Insulin Aspart (Novolog) 100 Unit/1 Ml CARTRIDGE Insul in Aspart (Novolog) 100 Unit/1 Ml CARTRIDGE 2017-05-04 00:00:00 No 10 Thre e Times A Day [facility] Insulin Lispro (Humalog) 100 Unit/1 Ml VIAL Insulin Li spro (Humalog) 100 Unit/1 Ml VIAL 2017-05-04 00:00:00 No 10 Three Times Tasneem y With Meals [facility] Trazodone Hcl Trazodone Hcl 2017-05-04 00:00:00 No 100 Daily [facility] Cefuroxime Axetil (Cefuroxime) 250 Mg TABLET Cefuroxim e Axetil (Cefuroxime) 250 Mg TABLET 2013-11-08 00:00:00 No 250 Twice A Day [facility] Duloxetine Hcl (Cymbalta) 60 Mg CAPSULE. Duloxetine Hcl (Cymbalta) 60 Mg CAPSULE. 2013-11-08 00:00:00 No 60 Every Morning [facility] Lactulose (Kristalose) 20 Gm PACKET Lactulose (Kristalose) 20 Gm PACKET 2013-11-08 00:00:00 No 20 Twice A Day [facility] Lorazepam (Ativan) 1 Mg TABLET Lorazepam (Ativan) 1 Mg TABLET 2013-11-08 00:00:00 No .5 Four Times Daily [facility] Phenazopyridine Hcl (Pyridium) 200 Mg TABLET Phenazopy ridine Hcl (Pyridium) 200 Mg TABLET 2013-11-08 00:00:00 No 200 Three Times A Day [facility] Phentermine Hcl Phentermine Hcl 2013-11-08 00:00:00 No 37.5 Every Morning [facility] Fluoxetine Fluoxetine 2012-11-12 00:00:00 No [facility] Pregabalin (Lyrica) 150 Mg CAPSULE Pregabalin (Lyrica) 150 Mg CA PSULE 2012-11-12 00:00:00 No Twice A Day [facility] Insulin Glargine,Hum.rec.anlog (Lantus) 100 Unit/1 Ml VIAL Insulin Glargine,Hum.rec.anlog (Lantus) 100 Unit/1 Ml VIAL 2012-11-10 00:00:0 0 No [facility] Pantoprazole Sodium (Protonix) 40 Mg SUSPDR.PKT Pantop razole Sodium (Protonix) 40 Mg SUSPDR.PKT 2012-11-10 00:00:00 [facility] Trimethoprim/Sulfamethoxazole (Bactrim Ds) 1 Ea TAB Trimethoprim/Sulfamethoxazole (Bactrim Ds) 1 Ea TAB 2011-06-19 00:0 0:00 [facility] Vital Signs Vital Name Observation Time Observation Value Comments Source Body Temperature 2020-02-11 11:48:00 97.5 [degF] [facility] BMI (Body Mass Index) 2020-02-09 21:00:00 28.0 kg/m2 [facility] Weight 2020-02-09 01:03:00 163 [lb_av] [facility] Procedures Procedure Date / Time Performed Performing Clinician Sourc e Computed tomography of brain without radiopaque contrast 2020-01 00:00:00 [facility] EXCISION OF L FOOT SUBCU/FASCIA, OPEN APPROACH 2019-12-20 00:00: 00 [facility] INSERTION OF INFUSION DEV INTO SUP VENA CAVA, PERC APPROACH 2019-12-15 00:00:00 [facility] TRANSFUSE NONAUT RED BLOOD CELLS IN CENTRAL VEIN, PERC 2019-12-01 5 00:00:00 [facility] Computed tomography of chest with contrast 2019-12-15 00:00:00 [facility] Computed tomography of brain without radiopaque contrast 2019-12 00:00:[address] [facility] [address] maxillofacial area wo contrast 2019-12-15 00:00:00 [facility] Computed tomography of cervical spine without contrast 2019-12-01 5 00:00:00 [facility] Computed tomography angiography of abdom en and pelvis without then with contrast 2019-12-15 00:00:00 [facility] US abdomen complete 2019-08-09 00:00:00 [facility] PRQ CARD STENT W/ANGIO 1 VSL 2019-05-04 00:00:00 [facility] CORONARY ARTERY ANGIO S&I 2019-05-04 00:00:[address] [facility] Plan of Care Planned Activity Planned Date Details Comments Source Instructions Syncope [facility] Encounters Start Date/Time End Date/Time Encounter Type Admission Type [facility] Care Department Encounter ID Source 2020-02-09 03:15:00 2020-02-11 14:05:00 Discharged Inpatient (obs) [address] [facility] [id number] [facility] 2019-12-15 12:56:00 2019-12-25 13:11:00 Discharged Inpatient [address] [facility] [id number] [facility] 2019-11-28 11:31:00 2019-11-28 11:31:00 Emergency E [facility]SE [id number] [facility] 2019-08-09 11:42:00 2019-08-09 11:42:00 Registered Clinic [address] [facility] [id number] [facility] 2019 12:57:00 2019 12:57:00 Emergency E [facility]NE [facility] [id number] 2019-05-10 00:32:00 2019-05-10 00:32:00 Outpatient E [facility]SE CAR [id number] [facility] 2019-05-04 10:32:00 2019-05-04 10:32:00 Registered Surgical Day Care [facility] [id number] [facility] 2019-02-25 20:37:00 2019-02-23 17:02:00 Inpatient E [facility]SE MED [id number] [facility] 2018-11-06 16:43:00 2018-11-06 23:06:00 Departed Emergency Room [facility] [id number] [facility] Results Test Description Test Time Test Comments Results Result Comments Source Capillary blood glucose measurement by glucometer (mas s/volume) 2020-02-10 19:57:00 Test Item Bedside Glucose (test code = 96278-0) 238 70-120 Meter ID: [id number] Grande [facility] HospitalBlood leukocytes automated count (number/volume)2020-02-10 05:05:00* Test Item Value Reference Range Interpretation Comments White Blood Count (test code = 6690-2) 5.18 4.8-10.8 [facility] erythrocytes automated count (number/volume)2020-02-10 05:05:00* Test Item Value Reference Range Interpretation Comments Red Blood Count (test code = 789-8) 3.30 3.6-5.1 [facility]Blood hemoglobin measurement (moles/volume)2020-02-10 05:05:00* Test Item Value Reference Range Interpretation Comments Hemoglobin (test code = 80402-6) 9.3 12.0-16.0 [facility] HospitalAutomated blood hematocrit (volume fraction)2020-02-10 05:05:00* Test Item Value Reference Range Interpretation Comments Hematocrit (test code = 4544-3) 29.5 34.2-44.1 [facility] HospitalAutomated erythrocyte mean corpuscular [id number] 05:05:00* Test Item Value Reference Range Interpretation Comments Mean Corpuscular Volume (test code = 787-2) 89.4 81-99 [facility] HospitalAutomated erythrocyte mean corpuscular hemoglobin (mass per erythrocyte)2020-02-10 05:05:00* Test Item Value Reference Range Interpretation Comments Mean Corpuscular Hemoglobin (test code = 785-6) 28.2 28-32 [facility] erythrocyte mean corpuscular hemoglobin concentration measurement (mass/volume)2020-02-10 05:05:00* Test Item Value Reference Range Interpretation Comments Mean Corpuscular Hemoglobin Concent (test code = 786-4) 31.5 31-35 [facility] HospitalRDW CntHv-[id number] 05:05:00* Test Item Value Reference Range Interpretation Comments Red Cell Distribution Width (test code = 80707-3) 15.9 11.7 -14.4 [facility] count (count/volume)2020-02-10 05:05:00* Test Item Value Reference Range Interpretation Comments Platelet Count (test code = 777-3) 167 140-360 [facility] HospitalAuton license of [facility] medical [facility] blood segmented neutrophil count as percentage of total hsypqafonv6117-36-72 05:05:00* Test Item Value Reference Range Interpretation Comments Neutrophils (%) (Auto) (test code = 44214-2) 49.6 38.7-80.0 [facility] HospitalAut[facility] license [facility] blood lymphocyte count as percentage ot total xxordpxxxl2556-27-05 05:05:00* Test Item Value Reference Range Interpretation Comments Lymphocytes (%) (Auto) (test code = 736-9) 38.4 18.0-39.1 [facility] HospitalAutomated blood monocyte count as percentage of total fzeinkryjm4594-61-29 05:05:00* Test Item Value Reference Range Interpretation Comments Monocytes (%) (Auto) (test code = 5905-5) 6.8 4.4-11.3 [facility] HospitalAutomated blood eosinophil count as percentage of total bbcgyclhwl6326-40-19 05:05:00* Test Item Value Reference Range Interpretation Comments Eosinophils (%) (Auto) (test code = 713-8) 4.4 0.0-6.0 [facility] HospitalAutomated blood basophil count as percentage of total cwihmqeclk5281-27-55 05:05:00* Test Item Value Reference Range Interpretation Comments Basophils (%) (Auto) (test code = 706-2) 0.6 0.0-1.0 [facility] HospitalFluoroscopic procedure less than one hour osmachme6518-83-35 05:05:00* Test Item Value Reference Range Interpretation Comments IM GRANULOCYTES % (test code = IM GRANULOCYTES %) 0.2 0.0- 1.0 [facility] HospitalAutomated blood neutrophil count 2020-02-10 05:05:00* Test Item Value Reference Range Interpretation Comments Neutrophils # (Auto) (test code = 751-8) 2.6 2.1-6.9 [facility] HospitalBlood lymphocytes count (number/volume) 2020-02-10 05:05:00* Test Item Value Reference Range Interpretation Comments Lymphocytes # (Auto) (test code = 62977-8) 2.0 1.0-3.2 [facility] HospitalBlood monocytes automated count (number/volume)2020-02-10 05:05:00* Test Item Value Reference Range Interpretation Comments Monocytes # (Auto) (test code = 742-7) 0.4 0.2-0.8 [facility] HospitalAutomated blood eosinophil count 2020-02-10 05:05:00* Test Item Value Reference Range Interpretation Comments Eosinophils # (Auto) (test code = 711-2) 0.2 0.0-0.4 [facility] HospitalAutomated blood basophil count (count/volume)2020-02-10 05:05:00* Test Item Value Reference Range Interpretation Comments Basophils # (Auto) (test code = 704-7) 0.0 0.0-0.1 [facility] HospitalFluoroscopic procedure less than one hour bhnwxins2643-04-54 05:05:00* Test Item Value Reference Range Interpretation Comments Absolute Immature Granulocyte (auto (tapan t code = Absolute Immature Granulocyte (auto) 0.01 0-0.[address] [facility] or plasma sodium measurement (moles/volume)2020-02-10 05:05:00* Test Item Value Reference Range Interpretation Comments Sodium Level (test code = 2951-2) 141 136-[address] [facility] Hospital[facility] or plasma potassium measurement (moles/volume)2020-02-10 05:05:00* Test Item Value Reference Range Interpretation Comments Potassium Level (test code = 2823-3) 4.4 3.5-5.[address] [facility] Hospitalerum or plasma chloride measurement (moles/volume)2020-02-10 05:05:00* Test Item Value Reference Range Interpretation Comments Chloride Level (test code = 2075-0) 116 98-[address] [facility]um or plasma carbon dioxide, total measurement (moles/volume)2020-02-10 05:05:00* Test Item Value Reference Range Interpretation Comments Carbon Dioxide Level (test code = 2028-9) 18 22-[address] [facility] Hospitalerum or plasma anion [id number] 05:05:00* Test Item Value Reference Range Interpretation Comments Anion Gap (test code = 50987-8) 11.4 8-[address] [facility]um or plasma urea nitrogen measurement (mass/volume)2020-02-10 05:05:00* Test Item Value Reference Range Interpretation Comments Blood Urea Nitrogen (test code = 3094-0) 22 7-[address] [facility] Hospitalerum or plasma creatinine measurement (mass/volume)2020-02-10 05:05:00* Test Item Value Reference Range Interpretation Comments Creatinine (test code = 2160-0) 0.95 0.57-1.[address] [facility]um or plasma urea nitrogen/creatinine mass [id number] 05:05:00* Test Item Value Reference Range Interpretation Comments BUN/Creatinine Ratio (test code = 3097-3) 23 6-25 [facility] HospitalEstimated glomerular filtration rate (GFR) zyymnmjxcmiyo4431-48-13 05:05:00* Test Item Value Reference Range Interpretation Comments Estimat Glomerular Filtration Rate (test code = 588437456) > 60 >60 Ranges were taken from the National Kidney Disease Education Program and the [facility] literature.Reference ranges:60 or greater: Gbznow38-36 ( for 3 consecutive months): Chronic kidney disease 15 or less: Kidney failureRio Grande Regional HospitalGlucose xxafiumeojr8285-17-50 05:05:00* Test Item Value Reference Range Interpretation Comments Glucose Level (test code = GZG1105) 137 74-[address] [facility]er[facility] or plasma calcium measurement (mass/volume)2020-02-10 05:05:00* Test Item Value Reference Range Interpretation Comments Calcium Level (test code = 61279-5) 8.6 8.4-10.[address] [facility]erum or plasma magnesium measurement (mass/volume)2020-02-10 05:05:00* Test Item Value Reference Range Interpretation Comments Magnesium Level (test code = 88814-2) 1.6 1.3-2.[address] [facility] or plasma total bilirubin measurement (mass/volume)2020-02-10 05:05:00* Test Item Value Reference Range Interpretation Comments Total Bilirubin (test code = 1975-2) 0.4 0.2-1.2 [facility] HospitalFluoroscopic procedure less than one hour [id number] 05:05:00* Test Item Value Reference Range Interpretation Comments Aspartate Amino Transf (AST/SGOT) (test code = Aspartate Amino Transf (AST/SGOT)) 17 5-[address] [facility] or plasma alanine aminotransferase measurement (enzymatic activity/volume)2020-02-10 05:05:00* Test Item Value Reference Range Interpretation Comments Alanine Aminotransferase (ALT/SGPT) (test code = 1742-6) 16 0-[address] [facility] or plasma protein measurement (mass/volume)2020-02-10 05:05:00* Test Item Value Reference Range Interpretation Comments Total Protein (test code = 2885-2) 6.9 6.5-8.[address] [facility] or plasma albumin measurement (mass/volume)2020-02-10 05:05:00* Test Item Value Reference Range Interpretation Comments Albumin (test code = 1751-7) 3.0 3.5-5.0 [facility] HospitalPlasma globulin measurement (mass/volume) 2020-02-10 05:05:00* Test Item Value Reference Range Interpretation Comments Globulin (test code = 85411-4) 3.9 2.3-3.[address] [facility] or plasma albumin/globulin mass [id number] 05:05:00* Test Item Value Reference Range Interpretation Comments Albumin/Globulin Ratio (test code = 1759-0) 0.8 0.8-2.[address] [facility] or plasma alkaline phosphatase measurement (enzymatic activity/volume)2020-02-10 05:05:00* Test Item Value Reference Range Interpretation Comments Alkaline Phosphatase (test code = 6768-6) 125 40-[address] [facility] or plasma creatine kinase measurement (enzymatic activity/volume)2020-02-10 05:05:00* Test Item Value Reference Range Interpretation Comments Creatine Kinase (test code = 2157-6) 34 29-[address] [facility]erum or plasma creatine kinase MB measurement (mass/volume)2020-02-10 05:05:00* Test Item Value Reference Range Interpretation Comments Creatine Kinase MB (test code = 95350-9) 0.70 0-5.0 [facility] HospitalTroponin I measurement by highly sensitive enzyme ytspyyaktjv5028-38-63 05:05:00* Test Item Value Reference Range Interpretation Comments Troponin I (test code = 86994-1) 0.022 0-0.300 [facility] HospitalFluoroscopic procedure less than one hour sjktuudv3076-19-26 04:17:00* Test Item Value Reference Range Interpretation Comments Coronavirus (PCR) (test code = Coronavirus (PCR)) NOT DETECTED NOTD ETECTED SARS-COV-2 (COVID19), HIGHRISK, RT-PCRNegative results do not preclude SARS-CoV- 2 infection and should not be used as the sole basis for patient management deci sions. Negative results must be combined with clinical observations, patient his tory, and epidemiological information. Optimum specimen types and timing for pea k viral levels during infections caused by SARS-CoV-2 have not been determined. Collection of multiple specimens ot types of specimens may be necessary to detec t virus. Improper specimen collection and handling, sequence variability under p rimers/probes, or organism present below the limit of detection may lead to fals e negative results. Positive and negative predictive values of testing are highl y dependent on prevalance. False negative test results are more likely when prev alence is high.The expected result is negative (not detected).The SARS-CoV-2 tapan t is intended for the qualitative detection of nucleic acid from SARS-CoV-2 in n asopharyngeal and oropharyngeal swab samples from patients who meet COVID-19 cli nical and or epidemiological criteria. For lower respiratory tract specimens, th e assay is submitted for authoriztion by FDA under an Emergency Use Authorizatio n (EUA). Testing methodology is real time RT-PCR. If received as separate collec tion devices, nasopharygeal and oropharyngeal specimens are combined for analysi s. Additional specimens may be split to a separate accession for analysi and rep orting as this test includes a single unit of service.Test results must be corre lated with clinical presentation and evaluated in the context of other laborator y and epidemiologic data. Test performance can be affected because the epidemiol ogy and clinical spectrum of infection caused by SARS-CoV-2 is not fully known. For example, the optimum types of specimens to collect and when during the cours e of infection these specimens are most likely to contain detectable viral RNA m ay not be known.This test has not been Food and Drug Administration (FDA) cleare d or approved and has been authorized by FDA under an Emergency Use Authorizatio n (EUA). The test is only authorized for the duration of the declaration that ci rcumstances exist justifying the authorization of emergency use of in vitro diag nostic tests for detection and/or diagnosis of SARS-CoV-2 under section 564(b) o f the Act, 21 U.S.C. section 360bbb-3(b)(1), unless the authorization is termina mirna or revoked sooner. [facility] are certified under the [facility] Laboratory Improvement Amendments of 1988 (CLIA), 42 U.S.C. section 263a , to perform high complexity tests.Testing performed by [facility] [id number] [place], [place] [phone] Director: Nawaf Gatica M.D.CLIA # [id number] Grande Regional HospitalUrine color [id number] 02:30:00* Test Item Value Reference Range Interpretation Comments Urine Color (test code = 5778-6) YELLOW YELLOW [facility] HospitalUrine [id number] 02:30:00* Test Item Value Reference Range Interpretation Comments Urine Clarity (test code = 23365-2) CLEAR CLEAR [facility] gravity of Urine by Test strip 2020-02-09 02:30:00* Test Item Value Reference Range Interpretation Comments Urine Specific [place] (test code = 5811-5) 1.025 1.010-1.02 5 [facility] HospitalUrine pH measurement by automated test [id number] 02:30:00* Test Item Value Reference Range Interpretation Comments Urine pH (test code = 66590-1) 5.5 5-7 [facility] HospitalUrine leukocyte esterase detection by [id number] 02:30:00* Test Item Value Reference Range Interpretation Comments Urine Leukocyte Esterase (test code = 5799-2) TRACE NEGATIVE [facility] HospitalUrine nitrite byoosxmcv8924-38-30 02:30:00* Test Item Value Reference Range Interpretation Comments Urine Nitrite (test code = 60873-3) NEGATIVE NEGATIVE [facility] HospitalUrine protein measurement by test strip (mass/volume)2020-02-09 02:30:00* Test Item Value Reference Range Interpretation Comments Urine Protein (test code = 5804-0) 1+ NEGATIVE [facility] HospitalUrine glucose jkgrvvksq7102-53-03 02:30:00* Test Item Value Reference Range Interpretation Comments Urine Glucose (UA) (test code = 2349-9) NEGATIVE NEGATIVE [facility] HospitalUrine ketones detection by automated test [id number] 02:30:00* Test Item Value Reference Range Interpretation Comments Urine Ketones (test code = 08185-3) NEGATIVE NEGATIVE [facility] [facility] [id number] 02:30:00* Test Item Value Reference Range Interpretation Comments Urine Opiates Screen (test code = 35177-7) NEGATIVE NEGATIVE ALL TESTS PERFORMED MANUALLY ON Handpressions TOX/SEE TESTRio [facility] HospitalBarbiturates screen, tkoma8930-98-62 02:30:00* Test Item Value Reference Range Interpretation Comments Urine Barbiturates Screen (test code = 291697000) NEGATIVE NEGA TIVE [facility] phencyclidine detection by screening shglkr7948-28-85 02:30:00* Test Item Value Reference Range Interpretation Comments Urine Phencyclidine Screen (test code = 68611-4) NEGATIVE NEGAT JESSI [facility] HospitalU[facility] amphetamines detection by screen method > 1000 ng/bG1806-01-70 02:30:00* Test Item Value Reference Range Interpretation Comments Urine Amphetamines Screen (test code = 08684-8) NEGATIVE NEGATI VE [facility] HospitalFluoroscopic procedure less than one hour jctzydkd1051-95-30 02:30:00* Test Item Value Reference Range Interpretation Comments Urine Methamphetamines Screen (test code = Urine Metha mphetamines Screen) NEGATIVE NEGATIVE [facility] benzodiazepines detection by screening eoqrpu0954-46-39 02:30:00* Test Item Value Reference Range Interpretation Comments Urine Benzodiazepines Screen (test code = 76948-2) NEGATIVE NEG ATIVE [facility] HospitalU[facility] cocaine measurement (mass/volume) 2020-02-09 02:30:00* Test Item Value Reference Range Interpretation Comments Urine Cocaine Screen (test code = 3398-5) NEGATIVE NEGATIVE [facility] HospitalU[facility] cannabinoids detection by screening knftew3142-61-56 02:30:00* Test Item Value Reference Range Interpretation Comments Urine Cannabinoids Screen (test code = 36944-1) NEGATIVE NEGATI VE THESE RESULTS ARE FOR MEDICAL TREATMENT ONLYTHIS REPORT CONTAINS UNCONFIR MED SCREENING RESULTS*POSITIVE RESULTS WILL BE CONFIRMED BY REFERENCE LAB UPON R EQUEST CUT-OFFDRUG CLASS CONCENTRATION ng/mLAmphetamines 1000Methamphetamines 1000Cocaine 300Opiate 300Phencyc lidine 25Cannabinoid 50Barbiturates 300Benzodiazepine 300Methadone 300[facility] methadone gkiwst3623-50-06 02:30:00* Test Item Value Reference Range Interpretation Comments Urine Methadone Screen (test code = 37316-6) NEGATIVE NEGATIVE THESE RESULTS ARE FOR MEDICAL TREATMENT ONLYTHIS REPORT CONTAINS UNCONFIR MED SCREENING RESULTS*POSITIVE RESULTS WILL BE CONFIRMED BY REFERENCE LAB UPON R EQUEST CUT-OFFDRUG CLASS CONCENTRATION ng/mLAmphetamines 1000Methamphetamines 1000Cocaine Metabolite 300Opiate 300Phencyc lidine 25Cannabinoid 50Barbiturates 300Benzodiazepine 300Methadone 300[facility] HospitalU[facility] urobilinogen measurement by test strip (mass/volume)2020-02-09 02:30:00* Test Item Value Reference Range Interpretation Comments Urine Urobilinogen (test code = 76698-0) 0.2 0.2-1 [facility] total bilirubin measurement (mass/volume)2020-02-09 02:30:00* Test Item Value Reference Range Interpretation Comments Urine Bilirubin (test code = 1978-6) NEGATIVE NEGATIVE [facility] HospitalU[facility] erythrocytes jayrpqkmz2570-97-75 02:30:00* Test Item Value Reference Range Interpretation Comments Urine Blood (test code = 14868-6) TRACE NEGATIVE [facility] HospitalAutomated urine sediment leukocyte count by microscopy (number/high power field)2020-02-09 02:30:00* Test Item Value Reference Range Interpretation Comments Urine WBC (test code = 5821-4) 0-5 0-5 [facility] HospitalErythrocytes detection in urine sediment by light bavlypcybv8190-80-34 02:30:00* Test Item Value Reference Range Interpretation Comments Urine RBC (test code = 12497-5) 0-5 0-5 [facility] HospitalBacteria detection in urine sediment by light ktcqnitwsb3235-13-63 02:30:00* Test Item Value Reference Range Interpretation Comments Urine Bacteria (test code = 75143-6) MODERATE NONE [facility] HospitalEpithelial cells detection in urine sediment by light vfwswkpbrn8208-99-62 02:30:00* Test Item Value Reference Range Interpretation Comments Urine Epithelial Cells (test code = 51516-6) FEW NONE [facility] HospitalFluoroscopic procedure less than one hour qiiliguq0826-52-64 01:45:00* Test Item Value Reference Range Interpretation Comments Lactic Acid Level (test code = Lactic Acid Level) 1.0 0.5- 2.0 [facility] HospitalBNP Ljw-vIxk9675-68-10 01:45:00* Test Item Value Reference Range Interpretation Comments B-Type Natriuretic Peptide (test code = 34383-7) 129.5 0-100 [facility] HospitalBlood aeyhtgm7785-75-26 01:45:00* Test Item Value Reference Range Interpretation Comments Blood Culture (test code = 28437649) NO GROWTH AFTER 48 HOURS [facility] HospitalCHEST SINGLE (PORTABLE)2020-02-09 01:37:00 [place] [address] Patient Name: VERONICA GREENWOOD MR #: [id number] : 1965 Age/Sex: 54/F Req #: [id number] Adm Physician: Ordered by: J LUIS GALLAGHER DO Report #: [id number] Location: ER Room/Bed: Procedure: DX/CHEST SINGL E (PORTABLE) Exam Date: 02/09/20 Exam Time: 5 REPORT STATUS: Signed EXAMINATION: CHEST SINGLE (PORTABLE) INDICATION: ERMD ORDER [id number] Y COMPARISON: 12/15/2019 FINDINGS: AP view TUBE S and LINES: None. LUNGS: Lungs are well inflated. There is no evidence of pneumonia or pulmonary edema. PLEURA: No pleural effusion or pneumoth orax. HEART AND MEDIASTINUM: The cardiomediastinal silhouette is unremarka ble. BONES AND SOFT TISSUES: No acute osseous lesion. Soft tissues ar e unremarkable. UPPER ABDOMEN: No free air under the diaphragm. IMPRESSION: No acute thoracic abnormality. Signed by: Dr. Evelio delacruz MD on 02/09/2020 1:38 AM Dictated By: EVELIO MCKENNA MD 7 Transcribed By: JENIFFER on 137 COPY TO: J LUIS GALLAGHER DO CT BRAIN [id number] 01:10:00 [place] [address] Patient Name: VERONICA GREENWOOD MR #: [id number] : 1965 Age/Sex: 54/F Req #: [id number] Adm Physician: Ordered by: J LUIS GALLAGHER DO Rep ort #: [id number] Location: ER Room/B ed: Procedure: [id number] CT/CT BRAIN WO Exam Date: 02/09/20 Exam Time: 0045 REPORT STATUS: Signed Examination: CT BRAIN WO CONTRAST History:Syncope Comparison studies:December 15, 2019 Technique : Axial images were obtained from the skull base to the vertex. Coronal and sagittal images reconstructed from the axial data. Dose modulation, iterative reconstruction, and/or weight based adjustment of the mA/kV was utilized to re duce the radiation dose to as low as reasonably achievable. Intravenous con trast: None Findings: Scalp: No abnormalities. Bones: No fractures, blastic or lytic lesions. Brain sulci: Generalized volume loss for age. V entricles: No hydrocephalus. Extra-axial space: No abnormalities. Pa renchyma: No masses, hemorrhage, or acute or chronic cortical based vascular i nsults.. Sellar/suprasellar region: No abnormalities. Craniocervical junc tion: Patent foramen magnum. No Chiari one malformation. Incidental finding s: None. Impression: No new acute intracranial abnormalities when compared to prior head CT dated December 15, 2019. Unchanged generalized vol ume loss for age. Signed by: Dr. Janis Goetz M.D. on 02/09/2020 1:14 A M Dictated By: JANIS BLAKE MD 0114 Transcribed By: JENIFFER on 02/09/20 0 114 COPY TO: J LUIS GALLAGHER DO Serum or plasma trough vancomycin level at trough (mass/volume)2019-12-21 08:00:00* Test Item Value Reference Range Interpretation Comments Vancomycin Level Trough (test code = 4092-3) 11.0 5.0-10.0 Results repeated and called to IZABEL JONES at 0844 on 12/21/19 by Jane Tesfaye. Read back and verified.[facility] HospitalAmmonia Ser-mCnc 2019-12-19 12:15:00* Test Item Value Reference Range Interpretation Comments Ammonia (test code = 20578-4) 51 31-[address] [facility] or plasma IgA measurement (mass/volume)2019-12-19 12:15:00* Test Item Value Reference Range Interpretation Comments Immunoglobulin A (test code = 2458-8) 346 87-[address] [facility] or plasma IgG measurement (mass/volume)2019-12-19 12:15:00* Test Item Value Reference Range Interpretation Comments Immunoglobulin G (test code = 2465-3) [phone] Please note reference interval changeCHI St. [facility] Hospitalerum or plasma IgM measurement (mass/volume)2019-12-19 12:15:00* Test Item Value Reference Range Interpretation Comments Immunoglobulin M (test code = 2472-9) 135 26-217 Performed at: [address], [place], [place] [id number] Director: Lenny Walker MD, Phone: [phone] [facility] HospitalAntithrombin measurement (units/volume) in platelet poor plasma by chromogenic lzbujf5274-92-18 05:05:00* Test Item Value Reference Range Interpretation Comments Anti-Thrombin III Activity (test code = 3174-0) 86 75-135 Direct Xa inhibitor anticoagulants such as rivaroxaban,apixaban and edoxaban bushra l lead to spuriously elevatedantithrombin activity levels possibly masking a def iciency.Performed at: [facility] [id number] Director: Kayley Choe MD, Phone: [phone] St[facility] Hospitalerum liver kidney microsomal 1 antibody assay (units/volume)2019-12-19 05:05:00* Test Item Value Reference Range Interpretation Comments Liver/Kidney Microsomes Antibody (test code = 21160-9) 1.0 0.0-20.0 Negative 0.0 - 20.0 Equivocal 20.1 - 24.9 Positive > 24.9LKM type 1 antibodies are detected in patients withautoimmune hepatitis type 2 and in up to 8% ofpatients with chronic HCV infection.Performed at: [facility] [address] [id number] Director: Kayley sarkar MD, Phone: [phone] [facility] HospitalFluoroscopic procedure less than one hour wixjpwsb3095-67-96 05:01:00* Test Item Value Reference Range Interpretation Comments Hemoglobin A1c Percent (test code = Hemoglobin A1c Percent) 10.8 4.0-7.0 [facility] HospitalPhosphorus zedneiyfhff6772-48-79 05:01:00 * Test Item Value Reference Range Interpretation Comments Phosphorus Level (test code = YKG1276) 4.5 2.3-4.[address] [facility] Hospitaler[facility] or plasma iron measurement (mass/volume)2019-12-16 05:01:00* Test Item Value Reference Range Interpretation Comments Iron Level (test code = 2498-4) 61 50-[address] [facility] Hospitaler[facility] or plasma iron binding capacity measurement (mass/volume)2019-12-16 05:01:00* Test Item Value Reference Range Interpretation Comments Total Iron Binding Capacity (test code = 2500-7) 165 261-[address] [facility] Hospitalerum or plasma iron saturation measurement (mass fraction)2019-12-16 05:01:00* Test Item Value Reference Range Interpretation Comments Percent Iron Saturation (test code = 2502-3) 37 15-[address] [facility] or plasma transferrin measurement (mass/volume)2019-12-16 05:01:00* Test Item Value Reference Range Interpretation Comments Transferrin (test code = 3034-6) 118 180-382 [facility] HospitalBlood cobalamin (vitamin B12) measurement (mass/volume)2019-12-16 05:01:00* Test Item Value Reference Range Interpretation Comments Vitamin B12 Level (test code = 97163-5) 1651 213-[address] [facility] or plasma thyrotropin measurement by detection limit <= 0.005 miu/l (units/volume)2019-12-16 05:01:00* Test Item Value Reference Range Interpretation Comments Thyroid Stimulating Hormone (TSH) (test code = 41798-8) 2.736 0.350-4.[address] [facility] or plasma folate measurement (mass/volume)2019-12-16 05:01:00* Test Item Value Reference Range Interpretation Comments Folate (test code = 2284-8) 11.3 >3.0 A serum folate concentration of less than 3.1 ng/mL isconsidered to represent cl inical deficiency.Performed at: - [facility] [id number] Director: Lenny Walker MD, Phone: [phone] [facility] Regional HospitalCT CHEST [id number] 13:46:00 [place] [address] Patient Name: VERONICA GREENWOOD MR #: [id number] : 1965 Age/Sex: 54/F Req #: [id number] Adm Physician: PILLO GALLAGHER MD Ordered by: SULEMAN SANTIAGO Report #: [id number] Location: [facility] Room/Bed: [place] [address] Procedure: [id number] CT /CT CHEST W Exam Date: 12/15/19 Exam Time: 1315 REPORT STATUS: Signed EXAM: CT Chest WITH contrast- Pulmonary Embolism Protocol INDICATION: Chest pain, DVT COMPARISON: CTA abdomen and pelvis of the same day. TECHNIQUE: Chest w as scanned utilizing a multidetector helical scanner from the lung apex throug h the level of the diaphragm after administration of IV contrast. Thin section reconstructions were obtained with special concentration on the pulmonary art eries. Coronal and sagittal reformations were obtained. Pulmonary embolism pro tocol was performed. IV CONTRAST: 100 cc of Isovue 370 RADIATION DOSE: Total DLP: 2867 mGy*cm Dose modulation, iterat jessi reconstruction, and/or weight based adjustment of the mA/kV was utilized t o reduce the radiation dose to as low as reasonably achievable. COMPLICATIONS: None FINDINGS: LINES/ TUBES: None. PULMONARY AR TERIES: No filling defect is identified within the pulmonary arteries to the s egmental level. The subsegmental pulmonary arteries are not well opacified. Ma in pulmonary artery measures 2.6 cm in diameter. LUNGS AND AIRWAYS: The jewell tral airways are patent. Dependent bibasilar lower lobe opacities most compati ble with subsegmental atelectasis. Mild smooth interlobular septal thickening consistent with pulmonary interstitial edema. No focal pneumonia. PLEURA: Moderate bilateral pleural effusions. No pneumothorax. HEART AND MEDIASTIN UM: The thyroid gland is normal. No mediastinal, hilar or axillary lymphadeno scott. The heart is normal in size. No right heart strain. There is no pericar dial effusion. Atherosclerotic calcifications involve the LAD, circumflex, an d thoracic aorta.. UPPER ABDOMEN: Please see the separate dictation for t he concurrently performed abdomen and pelvis CT for a detailed discussion of i ntra-abdominal findings. BONES: No acute osseous injury. No suspicious lyti c or blastic lesions. SOFT TISSUES: Unremarkable. IMPRESSION: No pu lmonary embolism. Mild pulmonary interstitial edema. Moderate bilateral ple ural effusions. Bibasilar dependent subsegmental atelectasis. Signed b y: Steve Mueller MD on 12/15/2019 1:51 PM Dictated By: STEVE MUELLER MD Electr onically Signed By: STEVE MUELLER MD on 12/15/19 1351 Transcribed By: JENIFFER on 0 12/15/19 1351 COPY TO: SULEMAN SANTIAGO CTA ABD/DWXJKR8678-76-39 13:34:00 [place] [address] Patient Name: VERONICA GREENWOOD MR #: [id number] : 1965 Age/Sex: 54/F Req #: [id number] Adm Physician: PILLO GALLAGHER MD Ordered by: SULEMAN SANTIAGO Report #: [id number] Location: [facility] Room/Bed: [place] [address] Procedure: [id number] CT /CTA ABD/PELVIS Exam Date: 12/15/19 Exam Time: 1315 REPORT STATUS: Signed EXAM: CTA Abdomen and Pelvis WITHOUT and WITH intravenous contrast - GI bleed protocol INDICATION: Abdominal pain, GI bleeding COMPARISON: None. TECHNIQU E: Abdomen and pelvis were scanned utilizing a multidetector helical scanner f rom the lung base to the pubic symphysis before and after administration of IV contrast. Coronal and sagittal reformations were obtained. GI bleed protocol was used. Scan was performed prior to contrast administration and then during arterial and venous delay phases. IV CONTRAST: 100 mL of Isovue 370 ORAL CONTRAST: Water COMPLICATIONS: None RADIATION DOSE: Total DLP: 2867 mGy*cm Dose modulation, iterative reconstruction, and/or weight based adjustment of the mA/kV was utilized to reduce the radiation dos e to as low as reasonably achievable. FINDINGS: LOWER THORAX: Right an d left lower lobe dependent subsegmental atelectasis. Moderate bilateral pleur al effusions. HEPATOBILIARY: Diffuse hepatic steatosis. No focal liver lesi on. No biliary ductal dilation. Status post cholecystectomy. SPLEEN: Mild splenomegaly to 14 cm. PANCREAS: No focal masses or ductal dilatation. ADRENALS: Low-attenuation 1.8 cm right adrenal nodule, likely a benign adenoma . KIDNEYS/URETERS: No hydronephrosis or renal calculi. Bilateral subcentimeter simple renal cysts. PELVIC ORGANS/BLADDER: Status post hysterectomy. P ERITONEUM / RETROPERITONEUM: No free air or fluid. LYMPH NODES: No lymphadenop athy. VESSELS: No evidence of active arterial extravasation of contrast in the bowel. Moderate atherosclerotic calcifications of the nonaneurysmal abdominal aorta and major branches. No abdominal aortic aneurysm. The mesenteric vessel s are widely patent. Single right and single left renal arteries are patent. GI TRACT: No abnormal bowel thickening. No bowel obstruction. BONES AND SOFT TISSUES: No acute osseous injury. Chronic L2 and L3 compression fracture s. No suspicious lytic or blastic lesions. IMPRESSION: No evidence of ac tive arterial gastrointestinal bleeding. Diffuse hepatic steatosis. Sp lenomegaly. Signed by: Steve Mueller MD on 12/15/2019 1:46 PM Dictated By: STEVE MUELLER MD 134 Tra nscribed By: JENIFFER on 12/15/19 1346 COPY TO: SULEMAN SANTIAGO Stool gastrointestinal hemoglobin nbnujajnh1430-74-55 12:30:00* Test Item Value Reference Range Interpretation Comments Stool Occult Blood (test code = 2335-8) NEGATIVE NEGATIVE [facility] WMUZAHTVF0799-40-79 12:14:00 [facility] [address] [place] [address] Patient Name: VERONICA GREENWOOD MR #: [id number] : 1965 Age/Sex: 54/F Req #: [id number] Adm Physician: Ordered by: SULEMAN SANTIAGO Report #: [id number] Location: ER Room/Bed: Procedure: [id number] DX /CHEST XRAY LINE PLACEMENT Exam Date: 12/15/19 Exam Time: 1204 REPORT STATUS: Signed EXAMINATION: CHEST XRAY LINE PLACEMENT INDICATION: Line placement COMPARISON: Chest radiograph 12/15/2019 FINDINGS: LINES/TUBES:Ri ght PICC line terminates in the superior vena cava. EKG leads overlie the ches t. LUNGS:The lungs are moderately inflated. Right basilar opacity silhouett es the right hemidiaphragm. There is perihilar fullness and indistinctness of the pulmonary vasculature. PLEURA:Unchanged right pleural effusion. Small left pleural effusion. MEDIASTINUM:The cardiomediastinal silhouette appear s normal in size and shape. BONES/SOFT TISSUES:No acute osseous injury. ABDOMEN:No free air under the diaphragm. IMPRESSION: Unchanged mild pulmonary edema and bilateral pleural effusions. Right basilar opacity, mo st likely subsegmental atelectasis. Signed by: Steve Mueller MD on 12/15/2019 12:16 PM Dictated By: STEVE MUELLER MD 1216 Transcribed By: JENIFFER on 12/15/19 1216 COPY TO: SULEMAN SANTIAGO CT CERVICAL SPINE [id number] 11:06:00 [place] [address] Patient Name: VERONICA GREENWOOD MR #: [id number] : 1965 Age/Sex: 54/F Req #: [id number] Adm Physician: Ordered by: SULEMAN SANTIAGO Report #: [id number] Location: ER Room/Bed: Procedure: [id number] CT /CT CERVICAL SPINE WO Exam Date: Exam Time: REPORT STATUS: Signed Examination: CT CERVICAL SPINE WO CONTRAST HISTORY:Neck pain and injury after fall. KALINA RISON:None. TECHNIQUE: Multidetector helical axial images were obtained withou t contrast from the foramen magnum to T1. Coronal and sagittal reformatted im ages were done. Bone and soft tissue windows were evaluated. Dose modulatio n, iterative reconstruction, and/or weight based adjustment of the mA/kV was u tilized to reduce the radiation dose to as low as reasonably achievable. FINDINGS: Alignment:Normal alignment and lordosis. Vertebrae: Normal hei ght and density. No acute fracture or neoplasm. Anterior osteophytes from C2 t hrough C7. Disc space heights: Severely narrowed at C5-C6 and C6-C7 with chron ic endplate irregularity at C6-C7 which could be from degenerative change or p rior infection. Caliber of spinal canal: Developmentally normal. Licensed Pharmacist ior fossa and craniocervical junction: Foramen magnum patent. No Chiari 1 malf ormation. Soft tissues: No abnormality. Degenerative changes: Diffus e disc osteophyte at C5-C6 causes mild bilateral foraminal narrowing. Asymmetr ic to the left disc osteophyte at C6-C7 with moderate left foraminal narrowing . No right foraminal narrowing. The remaining levels demonstrate no disc kalpana iation or canal stenosis. Visualized lung apices: No abnormalities. IMPRESSION: 1. No acute abnormalities. 2. Degenerative change as above. Signed by: Dr. Janis Goetz M.D. on 12/15/2019 11:12 AM Dictate d By: JANIS BLAKE MD 111 Transcribed By: JENIFFER on 12/15/191111 COPY T O: SULEMAN SANTIAGO CT MAXIO FAC/PARANAS [id number] 10:57:00 [place] [address] [place] [address] Patient Name: VERONICA GREENWOOD MR #: [id number] : 1965 Age/Sex: 54/F Req #: [id number] Adm Physician: Ordered by: SULEMAN SANTIAGO Report #: [id number] Location: ER Room/Bed: Procedure: [id number] CT /CT MAXIO FAC/PARANAS WO Exam Date: Exam Time: REPORT STATUS: Signed Examination: CT Face without Contrast History:Fall with face injury. Comparison studies: None Technique: Axial images were obtained through the maxillofacial lb on. Coronal and sagittal reconstructions obtained from the axial data. Dose modulation, iterative reconstruction, and/or weight based adjustment of the m A/kV was utilized to reduce the radiation dose to as low as reasonably achieva ble. Intravenous contrast: None Findings: Soft tissues: No abnor malities. Bones: No acute fractures or bony abnormalities. Chronic lef t orbital floor fracture with wide open fracture and smooth fragment. The left inferior rectus muscle is rounded in morphology and is mildly displaced into the fracture site. Orbits: Globes: Intact Extra or intraconal abnorma lities: None. Paranasal sinuses: Clear. Nasal cavity: Patent. R ightward septal deviation. IMPRESSION: 1. No acute facial abnormalit y. 2. Chronic left orbital floor fracture with mild inferior displacement of the left inferior rectus muscle mild as detailed. Nonemergent opthalmology consult is suggested. Signed by: Dr. Janis Goetz M.D. on 12/15/2019 11:05 AM Dictated By: JANIS BLAKE MD 04 Transcribed By: JENIFFER on 1104 COPY TO: SULEMAN SANTIAGO CT BRAIN [id number] 10:53:00 [place] [address] Patient Name: VERONICA GREENWOOD MR #: [id number] : 1965 Age/Sex: 54/F Req #: [id number] Adm Physician: Ordered by: SULEMAN SANTIAGO Report #: [id number] Location: ER Room/Bed: Procedure: [id number] CT /CT BRAIN WO Exam Date: Exam Time: REPORT STATUS: Signed Examination: CT BRAIN WO CONTRAST History:Fall 2 days ago with head injury Comparison studies:None Technique: Axial images were obtained from the skull base to the vertex. Coronal and sagittal images reconstructed from the axial data. Dose modulat ion, iterative reconstruction, and/or weight based adjustment of the mA/kV was utilized to reduce the radiation dose to as low as reasonably achievable. Intravenous contrast: None Findings: Scalp: No abnormalities. Bones: No fractures, blastic or lytic lesions. Brain sulci: Generalized volume lo ss for age. Ventricles: No hydrocephalus. Extra-axial space: No abnorma lities. Parenchyma: No masses, hemorrhage, or acute or chronic cortical b ased vascular insults.. Sellar/suprasellar region: No abnormalities. Cran iocervical junction: Patent foramen magnum. No Chiari one malformation. Inc idental findings: None. Impression: No acute intracranial abnormal ities. Generalized volume loss for age. Signed by: Dr. Janis borden M.D. on 12/15/2019 10:57 AM Dictated By: JANIS BLAKE MD E lectronically Signed By: JANIS BLAKE MD on 12/15/19 1057 Transcrib ed By: JENIFFER on 12/15/19 105 COPY TO: SULEMAN SANTIAGO CHEST SINGLE (PORTABLE)2019-12-15 09:19:00 [place] [address] Patient Name: VERONICA GREENWOOD MR #: [id number] : 1965 Age/Sex: 54/F Req #: [id number] Adm Physician: Ordered by: SULEMAN SANTIAGO Report #: [id number] Location: ER Room/Bed: Procedure: [id number] DX /CHEST SINGLE (PORTABLE) Exam Date: 12/15/19 Exam Ti me: 0827 REPORT STATUS: Signed E xamination: Single AP view of the chest. COMPARISON: 08/09/2017 INDICAT ION: Chest pain DISCUSSION: Small bilateral pleural effusions ri ght larger than left with adjacent lower lobe opacities, likely atelectasis. Normal heart size with prominence of the central pulmonary vasculature. No acute osseous abnormalities. IMPRESSION: Pulmonary venous conge stion with small bilateral pleural effusions and bilateral lower lobe opacitie s, likely atelectasis. Signed by: Dr. Andi Schultz M.D. on 12/15/2019 9:22 AM Dictated By: ANDI SCHULTZ MD 0922 Transcribed By: JENIFFER on 12/15/19921 COPY TO: SULEMAN SANTIAGO Amorphous sediment detection in urine sediment by light gzhcswhzhp9299-24-05 08:57:00* Test Item Value Reference Range Interpretation Comments Urine Amorphous Sediment (test code = 8246-1) FEW FEW [facility] HospitalProthrombin time (PT) in platelet poor plasma by coagulation uhjbb4255-81-88 07:50:00* Test Item Value Reference Range Interpretation Comments Prothrombin Time (test code = 5902-2) 16.3 11.9-14.5 [facility] HospitalINR in Platelet poor plasma by Coagulation uamza1172-84-64 07:50:00* Test Item Value Reference Range Interpretation Comments Prothromb Time International Ratio (test code = 6301-6) 1.23 Oral Anticoagulant Therapy INR Values:1. Low Intensity Therapy 1.5 - 2.02 . Moderate Intensity Therapy 2.0 - 3.03. High Intensity Therapy(1) 2.5 - 3. 54. High Intensity Therapy(2) 3.0 - 4.05. Panic Value INR > 5.0 [facility] HospitalActivated partial thromboplastin time (aPTT) in platelet poor plasma by coagulation fouke8784-04-59 07:50:00* Test Item Value Reference Range Interpretation Comments Activated Partial Thromboplast Time (test code = 86965-5) 42.4 23.8-35.5 [facility] HospitalClostridium difficile A and B toxin assay 2019-12-15 06:20:00* Test Item Value Reference Range Interpretation Comments Clostridium Difficile Toxin A & B (test code = 337743542) NEGATIVE NEGATIVE Testing on stool aspirate specimens is outside interactive marketing strategist claims since specime n type not validated on this assay.[facility] HospitalUS ABDOMEN YUTKCQRV1880-78-18 14:40:00 [place] [address] Patient Name: VERONICA GREENWOOD MR #: [id number] : 1965 Age/Sex: 54/F Req #: [id number] Adm Physician: Ordered by: NEEL DAO MD Report #: [id number] Location: Room/Bed: Procedure: [id number] U S/US ABDOMEN COMPLETE Exam Date: 08/09/19 Exam Time: 1313 REPORT STATUS: Signed HIST ORY : Cirrhosis COMPARISON : 01/03/2012 COMMENT : Complete ultrasou nd examination of the abdomen was performed. The liver is normal in size measu ring 12 cm in length along the right midclavicular line and heterogeneous in e cho-texture without evidence of a focal mass. The gallbladder is surgically a bsent.. The biliary tract is within normal limits with the common bile duct m easuring 5 mm in maximum diameter. The visualized portions of the pancreas ar e within normal limits. The spleen is normal in size and echo-texture measuri ng 12.0 cm. The right kidney measures 10.5 cm and the left kidney 10.7 cm in maximum size. There is a 2.8 x 1.4 x 2.4 cm cyst arising from the lower pole o f the left kidney. The portal vein measures to a maximum of 0.[address] There is no ascites or pleural effusion. The visualized inferior vena cava, hepatic veins and abdominal aorta are within normal limits. IM PRESSION : 1. Cirrhotic morphology of the liver. No focal hepatic mass. 2. Status post cholecystectomy. 3. Left renal cyst. Signed by: Hany Juarez MD on 08/09/2019 2:45 PM Dictated By: HANY JUAREZ MD Electr onically Signed By: HANY JUAREZ MD on 08/09/19 1442 Transcribed By: TORSTEN Borden on 08/09/19 1444 COPY TO: NEEL DAO MD Sodium Level 2018-11-06 22:42:00* Test Item Value Reference Range Interpretation Comments Sodium Level (test code = 2951-2) 128 136-145 [facility] Uonrq3981-41-55 22:42:00* Test Item Value Reference Range Interpretation Comments Potassium Level (test code = 2823-3) 4.5 3.5-5.1 [facility] HospitalChloride Puszm2784-05-72 22:42:00* Test Item Value Reference Range Interpretation Comments Chloride Level (test code = 2075-0) 95 98-107 L [facility] HospitalCarbon Dioxide Gwvjc2169-62-67 22:42:00* Test Item Value Reference Range Interpretation Comments Carbon Dioxide Level (test code = 2028-9) 25 22-29 [facility] HospitalAnion Ggy7749-09-20 22:42:00* Test Item Value Reference Range Interpretation Comments Anion Gap (test code = 03557-3) 12.5 8-16 [facility] HospitalBlood Urea Zturpmww4578-50-95 22:42:00* Test Item Value Reference Range Interpretation Comments Blood Urea Nitrogen (test code = 3094-0) 30 7-26 H [facility] HospitalCreatinine2019-03-08 22:42:00* Test Item Value Reference Range Interpretation Comments Creatinine (test code = 2160-0) 1.14 0.57-1.11 H [facility] HospitalBUN/Creatinine Ryuci1747-72-10 22:42:00* Test Item Value Reference Range Interpretation Comments BUN/Creatinine Ratio (test code = 3097-3) 26 6-25 H [facility] HospitalEstimat Glomerular Filtration Rate 2018-11-06 22:42:00* Test Item Value Reference Range Interpretation Comments Estimat Glomerular Filtration Rate (test code = 304107426) 50 >60 L Ranges were taken from the National Kidney Disease Education Program and the Pat ional Kid[employer] Foundation literature.Reference ranges:60 or greater: Vnewed79-06 ( for 3 consecutive months): Chronic kidney disease 15 or less: Kidney failureR[facility] HospitalGlucose Kttey6700-99-10 22:42:00* Test Item Value Reference Range Interpretation Comments Glucose Level (test code = WEW7397) 511 74-118 Results repeated and called to SHIMA ROJO at 2238 on 11/06/18 by Inder Vaz. Read back and verified.[facility] HospitalCalcium Level 2018-11-06 22:42:00* Test Item Value Reference Range Interpretation Comments Calcium Level (test code = 42663-5) 10.0 8.4-10.2 [facility] HospitalTotal Jzggwceqo8709-32-11 22:42:00* Test Item Value Reference Range Interpretation Comments Total Bilirubin (test code = 1975-2) 0.3 0.2-1.2 [facility] HospitalAspartate Amino Transf (AST/SGOT) 2018-11-06 22:42:00* Test Item Value Reference Range Interpretation Comments Aspartate Amino Transf (AST/SGOT) (test code = Aspartate Amino Transf (AST/SGOT)) 17 5-34 [facility] HospitalAlanine Aminotransferase (ALT/SGPT) 2018-11-06 22:42:00* Test Item Value Reference Range Interpretation Comments Alanine Aminotransferase (ALT/SGPT) (test code = 1742-6) 19 0-55 [facility] HospitalTotal Hiiwylg0193-96-27 22:42:00* Test Item Value Reference Range Interpretation Comments Total Protein (test code = 2885-2) 7.8 6.5-8.1 [facility] HospitalAlbumin2019-03-08 22:42:00* Test Item Value Reference Range Interpretation Comments Albumin (test code = 1751-7) 3.2 3.5-5.0 L [facility] HospitalGlobulin2019-03-08 22:42:00* Test Item Value Reference Range Interpretation Comments Globulin (test code = 15446-6) 4.6 2.3-3.5 H [facility] HospitalAlbumin/Globulin Ixray4622-36-42 22:42:00 * Test Item Value Reference Range Interpretation Comments Albumin/Globulin Ratio (test code = 1759-0) 0.7 0.8-2.0 L [facility] HospitalAlkaline Qzxlduoorjf3341-22-43 22:42:00* Test Item Value Reference Range Interpretation Comments Alkaline Phosphatase (test code = 6768-6) 181 40-150 H [facility] HospitalWhite Blood Lrdwv9711-05-88 22:27:00* Test Item Value Reference Range Interpretation Comments White Blood Count (test code = 6690-2) 8.07 4.8-10.8 [facility] HospitalRed Blood Jutjz7446-65-70 22:27:00* Test Item Value Reference Range Interpretation Comments Red Blood Count (test code = 789-8) 4.47 3.6-5.1 [facility] HospitalHemoglobin2019-03-08 22:27:00* Test Item Value Reference Range Interpretation Comments Hemoglobin (test code = 61773-3) 11.7 12.0-16.0 L [facility] HospitalHematocrit2019-03-08 22:27:00* Test Item Value Reference Range Interpretation Comments Hematocrit (test code = 4544-3) 35.6 34.2-44.1 [facility] HospitalMean Corpuscular Qvcrvd9798-66-80 22:27:00* Test Item Value Reference Range Interpretation Comments Mean Corpuscular Volume (test code = 787-2) 79.6 81-99 L [facility] HospitalMean Corpuscular Hfejarjhls2552-88-87 22:27:00* Test Item Value Reference Range Interpretation Comments Mean Corpuscular Hemoglobin (test code = 785-6) 26.2 28-32 L [facility] HospitalMean Corpuscular Hemoglobin Concent 2018-11-06 22:27:00* Test Item Value Reference Range Interpretation Comments Mean Corpuscular Hemoglobin Concent (test code = 786-4) 32.9 31-35 [facility] HospitalRed Cell Distribution Bzzhg4265-16-53 22:27:00* Test Item Value Reference Range Interpretation Comments Red Cell Distribution Width (test code = 75015-2) 13.3 11.7 -14.4 [facility] HospitalPlatelet Zkdrs0027-04-40 22:27:00* Test Item Value Reference Range Interpretation Comments Platelet Count (test code = 777-3) 236 140-360 [facility] HospitalNeutrophils (%) (Auto)2018-11-06 22:27:00 * Test Item Value Reference Range Interpretation Comments Neutrophils (%) (Auto) (test code = 62062-0) 60.1 38.7-80.0 [facility] HospitalLymphocytes (%) (Auto)2018-11-06 22:27:00 * Test Item Value Reference Range Interpretation Comments Lymphocytes (%) (Auto) (test code = 736-9) 31.7 18.0-39.1 [facility] HospitalMonocytes (%) (Auto)2018-11-06 22:27:00* Test Item Value Reference Range Interpretation Comments Monocytes (%) (Auto) (test code = 5905-5) 5.3 4.4-11.3 [facility] HospitalEosinophils (%) (Auto)2018-11-06 22:27:00 * Test Item Value Reference Range Interpretation Comments Eosinophils (%) (Auto) (test code = 713-8) 2.1 0.0-6.0 [facility] HospitalBasophils (%) (Auto)2018-11-06 22:27:00* Test Item Value Reference Range Interpretation Comments Basophils (%) (Auto) (test code = 706-2) 0.4 0.0-1.0 [facility] HospitalIM GRANULOCYTES %2018-11-06 22:27:00* Test Item Value Reference Range Interpretation Comments IM GRANULOCYTES % (test code = IM GRANULOCYTES %) 0.4 0.0- 1.0 [facility] HospitalNeutrophils # (Auto)2018-11-06 22:27:00* Test Item Value Reference Range Interpretation Comments Neutrophils # (Auto) (test code = 751-8) 4.9 2.1-6.9 [facility] HospitalLymphocytes # (Auto)2018-11-06 22:27:00* Test Item Value Reference Range Interpretation Comments Lymphocytes # (Auto) (test code = 93261-5) 2.6 1.0-3.2 [facility] HospitalMonocytes # (Auto)2018-11-06 22:27:00* Test Item Value Reference Range Interpretation Comments Monocytes # (Auto) (test code = 742-7) 0.4 0.2-0.8 [facility] HospitalEosinophils # (Auto)2018-11-06 22:27:00* Test Item Value Reference Range Interpretation Comments Eosinophils # (Auto) (test code = 711-2) 0.2 0.0-0.4 [facility] HospitalBasophils # (Auto)2018-11-06 22:27:00* Test Item Value Reference Range Interpretation Comments Basophils # (Auto) (test code = 704-7) 0.0 0.0-0.1 [facility] HospitalAbsolute Immature Granulocyte (auto 2018-11-06 22:27:00* Test Item Value Reference Range Interpretation Comments Absolute Immature Granulocyte (auto (tapan t code = Absolute Immature Granulocyte (auto) 0.03 0-0.1 [facility] HospitalCR - XRAY LUMBOSACRAL XR 2/3 VIEWS [...] osteoarthritis and disc degeneration.CHEST XRAY LINE PLACEMENT [place] [address] Patient Name: VERONICA GREENWOOD MR #: [id number] : 1965 Age/Sex: 52/F Req #: [id number] Adm Physician: CLARISA BOWMAN MD Ordered by: CLARISA BOWMAN MD Report #: [id number] Location: MED/SURG2 Room/Bed: 209 Procedure: [id number] D X/CHEST XRAY LINE PLACEMENT Exam Date: [...] PARSONS MD on 08/09/171821 Transcribed By: TORSTEN Borden on 08/09/171821 COPY TO: CLARISA BOWMAN MD CHEST SINGLE (PORTABLE) [place] [address] Patient Name: VERONICA GREENWOOD MR #: [id number] : 1965 Age/Sex: 52/F Req #: [id number] Adm Physician: CLARISA BOWMAN MD Ordered by: CLARISA BOWMAN MD Report #: [id number] Location: IMCU Room/Bed: IMCU 179-1 Procedure: [id number] D X/CHEST SINGLE (PORTABLE) Exam Date: 08/06/17 [...] was generated with voice-recognition technology. Errors in pushcart peddler can occur. Please interpret accordingly and contact a radiologist if there are any questions regarding the report. Signed by: Dr. Verito De Paz M.D. on 08/06/2017 9:19 PM Dictated By: VERITO DE PAZ MD 18 Transcribed B y: JENIFFER on 08/06/172118 COPY TO: CLARISA BOWMAN MD MRI PELVIS [place] [address] Patient Name: VERONICA GREENWOOD MR #: [id number] : 1965 Age/Sex: 51/F Req #: [id number] Adm Physician: Ordered by: CLARISA BOWMAN MD Report #: [id number] Location: MRI Room/Bed: Procedure: [id number] MRI/MRI PELVIS WOW Exam Daniel e: Exam [...] 12:09 PM Dictated By: SALTY Cadena DO 1200 Transcribed By: JENIFFER on 05/23/17 1209 COPY TO: CLARISA BOWMAN MD MRI SPINE LUMBAR WOW [place] [address] Patient Name: VERONICA GREENWOOD MR #: [id number] : 1965 Age/Sex: 51/F Req #: [id number] Adm Physician: CLARISA BOWMAN MD Ordered by: JAMES ALVA MD Report #: [id number] Location: MED/SURG3 Room/Bed: 2961 Procedure: [id number] MR I/MRI SPINE LUMBAR WOW Exam Date: [...] endplate of L2 (hypointense on T1, hyperintense o n T2 and diffusely enhancing) results in less [...] PM Dictated By: ZEESHAN LY MD, MD 2831 Transcribed By: JENIFFER on 05/07/17 1 854 COPY TO: JAMES ALVA MD SPECIAL PROCEDURE IN GERIATRIC NURSING ASSISTANT [place] [address] Patient Name: VERONICA GREENWOOD MR #: [id number] : 1965 Age/Sex: 51/F Req #: [id number] Adm Physician: CLARISA BOWMAN MD Ordered by: JAMES ALVA MD Report #: [id number] Locati on: MED/SURG3 Room/Bed: 296-1 Procedure: [id number] IR /SPECIAL PROCEDURE IN GERIATRIC NURSING ASSISTANT Exam Date: Exam Time : REPORT [...] administer ed: None Specimens: None Implants: 9 [place] dual lumen tunneled central veno us catheter [...] The needle was exchanged for a 5 [place] micropuncture sheath. I ntravascular length to the [...] h was then exchanged for a 10 [place] peel-away sheath over the wire. The wire and obturator of the sheath were removed and the catheter was advanced through the peel-away sheath which was then broken and discarded. The catheter tip wa s positioned in the upper right atrium. Each [...] n. IMPRESSION: Successful placement of a 9 [place], dual lumen tunneled central venous catheter for purposes of long-term intravenous antibiotic admi nistration. Signed by: Dr. Andi Schultz M.D. on 05/06/2017 3:17 PM D ictated By: ANDI SCHULTZ MD 1115 COPY TO: TAMMY ALVA MD IR CONSULT [place] [address] Patient Name: VERONICA GREENWOOD MR #: [id number] : 1965 Age/Sex: 51/F Req #: [id number] Adm Physician: CLARISA BOWMAN MD Ordered by: JAMES ALVA MD Report #: [id number] Location: MED/SURG3 Room/Bed: [facility] Procedure: [id number] DX /IR CONSULT Exam Date: Exam Time: REPORT STA TUS: Signed Date and Time: 05/06/2017 Procedure: Right internal jugular tu nneled central venous catheter placement electrical prospecting operator: Dr. Schultz Pre-operative diagnosis: Osteomyelitis, need for long-term intravenous antib iotics Post-operative diagnosis: Osteomyelitis, need for long-term intravenous antibiotics Conscious Sedation: Fentanyl 75 mcg intravenous. The patie nt's heart rate and pulse oximetry were [facility]. Blood pressure was monitored at 5 minute intervals. Additional Medications: Lidocaine 2% for local anesthesia Fluoroscopy time : 1.5 minutes Dose-area Product: 558 cGycm2. Contrast used: None Est imated blood loss: Less than 5 cc Blood products administered: None Specimen s: None Implants: 9 [place] dual lumen tunneled central venous catheter Condi tion at completion of procedure: Stable Disposition: Returned to chow unit. DISCUSSION: Informed consent for the procedure was obtained from the pat ient and documented in the medical record. [...] The needle was exchanged for a 5 [place] micropuncture sheath. Intravascular length to the upper [...] was then exchange d for a 10 [place] peel-away sheath over the wire. The wire [...] vein. IMPRESSION: Successful placement of a 9 [place], dual lumen tunneled central venous cat heter for purposes of long-term intravenous antibiotic administration. Si gned by: Dr. Andi Schultz M.D. on 05/06/2017 3:17 PM Dictated By: ANDI SCHULTZ MD 1115 Transcri bed By: JENIFFER on 05/29/17 1115 COPY TO: JAMES ALVA MD BONE SCAN, 3 [place] [address] Patient Name: VERONICA GREENWOOD MR #: [id number] : 1965 Age/Sex: 51/F Req #: [id number] Adm Physician: CLARISA BOWMAN MD Ordered by: ANDREW DAO MD Report #: [id number] Location: MED/SURG3 Room/Bed: [facility]-1 Procedure: [id number] NM/BONE SCAN, 3 PHASE Exam Date: 05/05/17 [...] osteomyelitis. Signed by: Dr. Viki Mccullough M.D. o n 05/05/2017 7:50 PM Dictated By: VIKI MCCULLOUGH MD 49 Transcribed By: JENIFFER on 05/05/171949 COPY TO: ANDREW DAO MD CT ABDOMEN/PELVIS W [place] [address] Patient Name: VERONICA GREENWOOD MR #: [id number] : 1965 Age/Sex: 51/F Req #: [id number] Adm Physician: CLARISA BOWMAN MD Ordered by: SAMMI BARBER MD Report #: [id number] Location: [facility] Room/Bed: [facility] Procedure: [id number] C T/CT ABDOMEN/PELVIS W Exam Date: 05/04/17 Exam Time: 732 REPORT STATUS: Signed ADDENDUM #1 Adden dum: [...] and pelvis from 10/01/2010 and KUB from 1 TECHNIQUE: Abdomen and pelvis were scanned utilizing a multidetector helical scanner from the lung base to the pubic symphysis after administration of IV contrast. Coronal and sagittal reformations were obtained. Routine protocol wa s performed. Scan was performed when during portal venous phase. IV CONTRAST: 100 mL of Isovue-370 ORAL CONTRAST: None RADIATION DOSE: Total DLP: 593.3 mGy*cm Estimated effective do se: (DLP x 0.015 x size factor) mSv COMPLICATIONS: None FINDI NGS: LINES and TUBES: None. LOWER THORAX: Minimal scarring at both tata ng bases. HEPATOBILIARY: No focal hepatic lesions. No biliary ductal d ilation. GALLBLADDER: Cholecystectomy. SPLEEN: No splenomegaly. Small splenule inferior to the spleen. PANCREAS: No focal masses or ductal dilat ation. ADRENALS: 1.5 cm right adrenal gland nodule is mildly hyperdense m easuring 38 Hounsfield units, however, this nodule was low density on 1 and is stable in size and likely [...] the lumbar spine as well as wedge mait thomas deformity with cortical destruction of L3 [...] 1137 Transcribed By: JENIFFER on 0 05/04/17 0821 COPY TO: SAMMI BARBER MD
--- NOTE | 2020-04-01 16:53 | Diagnostic Imaging Report ---
FOREARM 2 VIEW RT - HOPD - 3 views HISTORY: Forearm pain and swelling. COMPARISON: None available. FINDINGS: Bones/joints: The patient is status post amputation of the distal forearm. No acute fracture or dislocation. No osseous erosions or lucency to suggest the presence of osteomyelitis. Soft tissues: There is soft tissue swelling and edema of the amputation stump. IMPRESSION: Soft tissue swelling and edema of the amputation stump with no radiographic evidence of osteomyelitis. If there is high clinical suspicion for osteomyelitis, an MRI of the forearm is a more sensitive examination which can be considered. Signed by: Reilly Nur MD on 04/01/2020 4:50 PM
[2020-04-01 17:54] LABS: BASOPHILS % 0.3 % (0.0-1.0); EOSINOPHILS % 0.6 % (0.0-6.0); HEMATOCRIT 35.7 % (34.2-44.1); HEMOGLOBIN 11.4 g/dL (12.0-16.0); LYMPHOCYTES # (AUTO) 1.9 (1.0-3.2); LYMPHOCYTES % 27.1 % (18.0-39.1); MEAN CORPUSCULAR HEMOGLOBIN 27.9 pg (28-32); MEAN CORPUSCULAR HGB CONC 31.9 g/dL (31-35); MEAN CORPUSCULAR VOLUME 87.3 fL (81-99); MONOCYTES # (AUTO) 0.6 (0.2-0.8); MONOCYTES % 8.2 % (4.4-11.3); NEUTROPHILS # (AUTO) 4.4 (2.1-6.9); NEUTROPHILS % 63.5 % (38.7-80.0); PLATELET COUNT 218 x10e3/uL (140-360); RED BLOOD COUNT 4.09 x10e6/uL (3.6-5.1); RED CELL DISTRIBUTION WIDTH 12.3 % (11.7-14.4)
[2020-04-01] MEDS ORDERED: KEFLEX500 MG PO (18:01)
[2020-04-01 18:11] VITALS: BP 142/81
== END 2020-04-01 18:18 | disposition home or self-care (01) ==
LOC: FSED 15:20
DX: L03.113 Cellulitis of right upper limb (principal); E10.65 Type 1 diabetes mellitus with hyperglycemia; I10 Essential (primary) hypertension; I25.10 Atherosclerotic heart disease of native coronary artery without angina pectoris; F31.9 Bipolar disorder, unspecified; Z79.4 Long term (current) use of insulin; Z89.111 Acquired absence of right hand
CPT/HCPCS: 36415; 80048; 80076; 85025; 87040; 99284

== ENCOUNTER → 2020-04-04 | Day surgery (SDC) | payer OTHER ==
[~2020-04-04] VITALS: Ht 162.6 cm; Wt 72.6 kg
[~2020-04-04] MED LIST changes: +KEFLEX500 MG PO; +LIDOCAINE HCL 2% LOCAL 20 ML VIAL ONE
[2020-04-04 07:25] VITALS: BP 137/91
[2020-04-04 08:22] VITALS: BP 140/87
--- NOTE | 2020-04-04 08:32 | Operative Report ---
DATE OF PROCEDURE: 04/04/2020 SURGEON: Gage Bonilla MD INDICATIONS: Atrial fibrillation and syncope. PROCEDURE PERFORMED: Insertable loop recorder. COMPLICATIONS: None. RECOMMENDATIONS: Medical therapy. DESCRIPTION OF PROCEDURE: Left anterior chest wall was anesthetized using subcutaneous lidocaine. A [employer] LINQ, serial #[id number] was inserted subcutaneously without complication. Skin approximated using Dermabond. The patient discharged home the same day. Gage Bonilla MD KSB/MODL /[id number]
== END | disposition home or self-care (01) ==
LOC: CATH LAB 05:45
PROVIDERS: ATTEND Internal Medicine Interventional Cardiology
DX: I48.91 Unspecified atrial fibrillation (principal); I25.118 Atherosclerotic heart disease of native coronary artery with other forms of angina pectoris; I87.2 Venous insufficiency (chronic) (peripheral); I49.9 Cardiac arrhythmia, unspecified; E11.59 Type 2 diabetes mellitus with other circulatory complications; Z01.812 Encounter for preprocedural laboratory examination; Z11.59 Encounter for screening for other viral diseases; Z79.4 Long term (current) use of insulin; Z79.82 Long term (current) use of aspirin
CPT/HCPCS: 33285; C1764; J2001; U0002

== ENCOUNTER → 2020-09-19 | Day surgery (SDC) | payer OTHER ==
[~2020-09-19] MED LIST changes: +COMBIVENT RESPIM4 GM IH; +EFFIENT10 MG PO; -LIDOCAINE HCL 2% LOCAL 20 ML VIAL ONE; +OR PHACO EYE KIT ONE; +PREOP PHACO EYE KIT ONE; +VITAMIN B12 PO; +VITAMIN D PO
[2020-09-19 14:15] VITALS: BP 119/88
== END | disposition home or self-care (01) ==
LOC: OR 11:23
PROVIDERS: ATTEND Ophthalmology
DX: H25.11 Age-related nuclear cataract, right eye (principal); I25.10 Atherosclerotic heart disease of native coronary artery without angina pectoris; J45.909 Unspecified asthma, uncomplicated; E78.5 Hyperlipidemia, unspecified; I83.90 Asymptomatic varicose veins of unspecified lower extremity; K74.60 Unspecified cirrhosis of liver; E11.22 Type 2 diabetes mellitus with diabetic chronic kidney disease; I13.0 Hypertensive heart and chronic kidney disease with heart failure and stage 1 through stage 4 chronic kidney disease, or unspecified chronic kidney disease; N18.9 Chronic kidney disease, unspecified; I50.9 Heart failure, unspecified; F32.9 Major depressive disorder, single episode, unspecified; Z88.6 Allergy status to analgesic agent; Z01.812 Encounter for preprocedural laboratory examination; Z20.822 Contact with and (suspected) exposure to COVID-19; Z79.4 Long term (current) use of insulin; Z79.82 Long term (current) use of aspirin; Z95.0 Presence of cardiac pacemaker; Z95.5 Presence of coronary angioplasty implant and graft
CPT/HCPCS: 36415; 66984; 82948; U0002; V2632

== ENCOUNTER → 2020-10-03 | Day surgery (SDC) | payer OTHER ==
[~2020-10-03] MED LIST changes: +CYCLOPENTOLATE HCL 2% OPTH SOLN 2 ML BTL OP ONE
[2020-10-03 11:20] VITALS: BP 102/77
== END | disposition home or self-care (01) ==
LOC: OR 07:43
PROVIDERS: ATTEND Ophthalmology
DX: H25.12 Age-related nuclear cataract, left eye (principal); I25.10 Atherosclerotic heart disease of native coronary artery without angina pectoris; E11.22 Type 2 diabetes mellitus with diabetic chronic kidney disease; I13.0 Hypertensive heart and chronic kidney disease with heart failure and stage 1 through stage 4 chronic kidney disease, or unspecified chronic kidney disease; N18.30 Chronic kidney disease, stage 3 unspecified; I50.9 Heart failure, unspecified; J45.909 Unspecified asthma, uncomplicated; K21.9 Gastro-esophageal reflux disease without esophagitis; K58.9 Irritable bowel syndrome, unspecified; F32.9 Major depressive disorder, single episode, unspecified; Z88.6 Allergy status to analgesic agent; Z01.812 Encounter for preprocedural laboratory examination; Z20.822 Contact with and (suspected) exposure to COVID-19; Z79.4 Long term (current) use of insulin; Z79.82 Long term (current) use of aspirin; Z86.19 Personal history of other infectious and parasitic diseases; Z95.0 Presence of cardiac pacemaker; Z95.5 Presence of coronary angioplasty implant and graft
CPT/HCPCS: 66984; U0002; V2632

== ENCOUNTER 2021-02-06 21:32 | Emergency (ER) | payer OTHER ==
[~2021-02-06] VITALS: Ht 162.6 cm; Wt 72.6 kg
[~2021-02-06 21:32] MED LIST changes: -CYCLOPENTOLATE HCL 2% OPTH SOLN 2 ML BTL OP ONE; -OR PHACO EYE KIT ONE; -PREOP PHACO EYE KIT ONE
[2021-02-06 23:49] LABS: CLARITY,URINE SL CLOUDY (CLEAR); COLOR,URINE YELLOW (YELLOW); KETONES,URINE NEGATIVE (NEGATIVE); LEUKOCYTE ESTERASE ,URINE SMALL (NEGATIVE); NITRITE,URINE POSITIVE (NEGATIVE); PROTEIN,URINE DIPSTICK NEGATIVE (NEGATIVE); URINE UROBILINOGEN 0.2 mg/dL (0.2 - 1)
[2021-02-06 23:55] LABS: BACTERIA,URINE MANY /HPF; EPITHELIAL CELLS,URINE FEW /LPF; WBC,URINE (MAN) 21-50 /HPF (0-5)
[2021-02-07] MEDS ORDERED: PYRIDIUM200 MG PO
[2021-02-07] MEDS ORDERED: CEFDINIR300 MG PO
== END 2021-02-07 00:36 | disposition home or self-care (01) ==
LOC: ER 22:38
DX: R30.0 Dysuria (principal); M54.5 Low back pain; N39.0 Urinary tract infection, site not specified; E11.40 Type 2 diabetes mellitus with diabetic neuropathy, unspecified; I10 Essential (primary) hypertension; I25.10 Atherosclerotic heart disease of native coronary artery without angina pectoris; I50.9 Heart failure, unspecified; Z95.5 Presence of coronary angioplasty implant and graft; F31.9 Bipolar disorder, unspecified
CPT/HCPCS: 81001; 87086; 87186; 99283

== ENCOUNTER 2021-06-13 07:42 | Inpatient (IN) | payer OTHER ==
[~2021-06-13] VITALS: Ht 162.6 cm; Wt 81.6 kg
[~2021-06-13 07:42] MED LIST changes: +CEFDINIR300 MG PO
[2021-06-13 08:04] LABS: BASOPHILS % 0.4 % (0.0-1.0); EOSINOPHILS # (AUTO) 0.3 (0.0-0.4); HEMATOCRIT 35.5 % (34.2-44.1); HEMOGLOBIN 11.4 g/dL (12.0-16.0); LYMPHOCYTES # (AUTO) 1.8 (1.0-3.2); LYMPHOCYTES % 32.9 % (18.0-39.1); MEAN CORPUSCULAR HEMOGLOBIN 28.1 pg (28-32); MEAN CORPUSCULAR HGB CONC 32.1 g/dL (31-35); MEAN CORPUSCULAR VOLUME 87.4 fL (81-99); MONOCYTES # (AUTO) 0.3 (0.2-0.8); MONOCYTES % 5.7 % (4.4-11.3); NEUTROPHILS % 55.6 % (38.7-80.0); PLATELET COUNT 158 x10e3/uL (140-360); RED BLOOD COUNT 4.06 x10e6/uL (3.6-5.1); RED CELL DISTRIBUTION WIDTH 12.2 % (11.7-14.4)
[2021-06-13] MEDS ORDERED: Morphine 2mg Syringe 2 MG/ML SYR ONE (08:04)
[2021-06-13] MEDS ORDERED: SODIUM CHLORIDE 0.9% 1000ML 1,000 ML ONE (08:05)
[2021-06-13] MEDS ORDERED: ONDANSETRON HCL INJ 2MG/ML 2ML 2 MG/ML VIAL IV STA ×2 (08:14→08:29)
[2021-06-13] MEDS ORDERED: FENTANYL CITRATE/PF 100MCG/2 ML INJ IV ONE (08:15)
[2021-06-13 08:22] LABS: ALBUMIN 4.2 g/dL (3.5-5.0); ALBUMIN/GLOBULIN RATIO 1.1 (0.8-2.0); ANION GAP 17.2 mmol/L (8-16); CALCIUM 9.5 mg/dL (8.4-10.2); CREATININE, SERUM 2.01 mg/dL (0.57-1.11); POTASSIUM 5.2 mmol/L (3.5-5.1)
[2021-06-13] MEDS ORDERED: Morphine 4mg Syringe 4 MG/ML INJ IV STA (08:29)
[2021-06-13] MEDS ORDERED: SODIUM CHLORIDE 0.9% 1000ML 1,000 ML IV SCH (08:30)
[2021-06-13] MEDS ORDERED: DONNATAL/LIDOCAINE/MAALOX 30 ML SUSP PO STA (09:07)
[2021-06-13] MEDS ORDERED: NITROGLYCERIN 0.4 MG SUBL SL PRN (09:15)
[2021-06-13] MEDS ORDERED: ASPIRIN 81 MG CHEW TAB PO ONE (09:30)
[2021-06-13] MEDS: SODIUM CHLORIDE 0.9% 1000ML 1,000 ML IV SCH ×2 (09:30→20:12)
[2021-06-13] MEDS ORDERED: ASPIRIN 325 MG TAB EC PO SCH (09:30)
[2021-06-13] MEDS ORDERED: PROMETHAZINE 12.5MG/ NACL 0.9% 12.5 MG/50 ML BAG IV ONE (10:00)
[2021-06-13 11:37] VITALS: BP 136/100
[2021-06-13 12:38] VITALS: BP 136/100
[2021-06-13 12:42] VITALS: BP 136/100
[2021-06-13 12:43] VITALS: BP 136/100
[2021-06-13] MEDS ORDERED: SOD POLYSTYRENE SULFONATE SUSP 15 GM/60 ML BTL PO ONE (13:15)
[2021-06-13 16:03] VITALS: BP 129/95
[2021-06-13] MEDS ORDERED: INSULIN GLARGINE 100 UNITS/ML VIAL SQ SCH (17:00)
[2021-06-13] MEDS ORDERED: NON-FORMULARY MEDICATION (Insulin Detemir (Levemir Flextouch) 40 UNITS) SC SCH (17:00)
[2021-06-13 17:54] LABS: CREATINE KINASE MB 2.1 ng/mL (0-5.0)
[2021-06-13] MEDS: Morphine 4mg Syringe 4 MG/ML INJ IV PRN (18:58)
[2021-06-13 19:05] LABS: CLARITY,URINE SL CLOUDY (CLEAR); COLOR,URINE YELLOW (YELLOW); KETONES,URINE TRACE (NEGATIVE); LEUKOCYTE ESTERASE ,URINE NEGATIVE (NEGATIVE); NITRITE,URINE NEGATIVE (NEGATIVE); PROTEIN,URINE DIPSTICK 1+ (NEGATIVE); URINE UROBILINOGEN 0.2 mg/dL (0.2 - 1)
[2021-06-13 19:08] LABS: BACTERIA,URINE MANY /HPF; EPITHELIAL CELLS,URINE RARE /LPF; RBC,URINE 0-5 /HPF (0-5)
[2021-06-13 20:09] VITALS: BP 153/83
[2021-06-13] MEDS ORDERED: DEXTROSE 50% SYRINGE 50 ML IV PRN (20:30)
[2021-06-13] MEDS ORDERED: ONDANSETRON HCL INJ 2MG/ML 2ML 2 MG/ML VIAL IV PRN (20:30)
[2021-06-13] MEDS: QUETIAPINE FUMARATE 25 MG TAB PO SCH (20:49)
[2021-06-13] MEDS: INSULIN REGULAR, HUMAN 100 UNIT/1 ML SQ SCH (20:49)
[2021-06-13] MEDS: VENLAFAXINE HCL 75 MG CAPCR PO SCH (20:49)
[2021-06-13] MEDS: ATORVASTATIN 40 MG TAB PO SCH (20:49)
[2021-06-13 21:45] LABS: AMPHETAMINES SCREEN,URINE NEGATIVE (NEGATIVE); BENZODIAZEPINES SCREEN,URINE NEGATIVE (NEGATIVE); PHENCYCLIDINE SCREEN,URINE NEGATIVE (NEGATIVE)
[2021-06-13] MEDS: ONDANSETRON HCL INJ 2MG/ML 2ML 2 MG/ML VIAL IV PRN (22:00)
[2021-06-14] VITALS (9 sets, daily range): BP systolic 126–170; BP diastolic 75–95
[2021-06-14] MEDS: Morphine 4mg Syringe 4 MG/ML INJ IV PRN ×6 (00:56→20:41)
[2021-06-14 01:19] LABS: CREATINE KINASE MB 2.2 ng/mL (0-5.0)
[2021-06-14] MEDS: SODIUM CHLORIDE 0.9% 1000ML 1,000 ML IV SCH ×2 (05:32→14:30)
[2021-06-14] MEDS: ONDANSETRON HCL INJ 2MG/ML 2ML 2 MG/ML VIAL IV PRN ×4 (05:50→20:37)
[2021-06-14 06:12] LABS: BASOPHILS % 0.1 % (0.0-1.0); HEMATOCRIT 32.4 % (34.2-44.1); HEMOGLOBIN 10.3 g/dL (12.0-16.0); LYMPHOCYTES # (AUTO) 0.9 (1.0-3.2); LYMPHOCYTES % 12.5 % (18.0-39.1); MEAN CORPUSCULAR HEMOGLOBIN 27.6 pg (28-32); MEAN CORPUSCULAR HGB CONC 31.8 g/dL (31-35); MEAN CORPUSCULAR VOLUME 86.9 fL (81-99); MONOCYTES # (AUTO) 0.6 (0.2-0.8); MONOCYTES % 8.1 % (4.4-11.3); NEUTROPHILS # (AUTO) 5.7 (2.1-6.9); NEUTROPHILS % 78.6 % (38.7-80.0); PLATELET COUNT 152 x10e3/uL (140-360); RED BLOOD COUNT 3.73 x10e6/uL (3.6-5.1); RED CELL DISTRIBUTION WIDTH 12.3 % (11.7-14.4)
[2021-06-14 06:45] LABS: ALBUMIN 3.9 g/dL (3.5-5.0); ALBUMIN/GLOBULIN RATIO 1.1 (0.8-2.0); ANION GAP 15.1 mmol/L (8-16); CALCIUM 8.8 mg/dL (8.4-10.2); CREATININE, SERUM 1.74 mg/dL (0.57-1.11); POTASSIUM 4.1 mmol/L (3.5-5.1)
[2021-06-14] MEDS: INSULIN REGULAR, HUMAN 100 UNIT/1 ML SQ SCH ×4 (07:30→20:06)
[2021-06-14 08:08] LABS: CREATINE KINASE MB 2.7 ng/mL (0-5.0)
[2021-06-14 08:29] LABS: AMYLASE 161 U/L (25-125); LIPASE 80 U/L (8-78); MAGNESIUM 2.1 MG/DL (1.3-2.1)
[2021-06-14] MEDS: PRASUGREL 10 MG TAB PO SCH (09:00)
[2021-06-14] MEDS: METOPROLOL SUCCINATE 50 MG TAB XL PO SCH (09:00)
[2021-06-14] MEDS: ASPIRIN 81 MG CHEW TAB PO SCH (09:00)
[2021-06-14] MEDS: INSULIN GLARGINE 100 UNITS/ML VIAL SQ SCH ×2 (09:00→20:43)
[2021-06-14] MEDS ORDERED: REGADENOSON 0.4 MG/5 ML SYR IV ONE (10:38)
[2021-06-14] MEDS: SODIUM CHLORIDE 0.45% 1,000 ML IV SCH (15:46)
[2021-06-14] MEDS ORDERED: CEFTRIAXONE 1 GM in SODIUM CHLORIDE 0.9% 50ML 50 ML IV SCH (16:00)
[2021-06-14] MEDS: VENLAFAXINE HCL 75 MG CAPCR PO SCH (21:15)
[2021-06-14] MEDS: ATORVASTATIN 40 MG TAB PO SCH (21:15)
[2021-06-14] MEDS: QUETIAPINE FUMARATE 25 MG TAB PO SCH (21:15)
[2021-06-15] VITALS (12 sets, daily range): BP systolic 114–166; BP diastolic 73–100
[2021-06-15] MEDS: Morphine 4mg Syringe 4 MG/ML INJ IV PRN ×2 (00:52→05:05)
[2021-06-15] MEDS: ONDANSETRON HCL INJ 2MG/ML 2ML 2 MG/ML VIAL IV PRN ×2 (00:52→05:05)
[2021-06-15] MEDS: SODIUM CHLORIDE 0.45% 1,000 ML IV SCH (02:00)
[2021-06-15] MEDS: CEFTRIAXONE 1 GM in SODIUM CHLORIDE 0.9% 50ML 50 ML IV SCH ×2 (03:51→16:12)
[2021-06-15 06:46] LABS: BASOPHILS % 0.3 % (0.0-1.0); EOSINOPHILS # (AUTO) 0.1 (0.0-0.4); HEMATOCRIT 32.6 % (34.2-44.1); HEMOGLOBIN 10.4 g/dL (12.0-16.0); LYMPHOCYTES # (AUTO) 2.1 (1.0-3.2); LYMPHOCYTES % 20.4 % (18.0-39.1); MEAN CORPUSCULAR HEMOGLOBIN 28.3 pg (28-32); MEAN CORPUSCULAR HGB CONC 31.9 g/dL (31-35); MEAN CORPUSCULAR VOLUME 88.6 fL (81-99); MONOCYTES # (AUTO) 0.5 (0.2-0.8); MONOCYTES % 4.9 % (4.4-11.3); NEUTROPHILS # (AUTO) 7.4 (2.1-6.9); NEUTROPHILS % 72.6 % (38.7-80.0); PLATELET COUNT 149 x10e3/uL (140-360); RED BLOOD COUNT 3.68 x10e6/uL (3.6-5.1); RED CELL DISTRIBUTION WIDTH 12.2 % (11.7-14.4)
[2021-06-15 08:10] LABS: ALBUMIN 3.7 g/dL (3.5-5.0); ALBUMIN/GLOBULIN RATIO 1.2 (0.8-2.0); ANION GAP 15.4 mmol/L (8-16); CALCIUM 8.5 mg/dL (8.4-10.2); CREATININE, SERUM 1.29 mg/dL (0.57-1.11); POTASSIUM 3.4 mmol/L (3.5-5.1)
[2021-06-15] MEDS ORDERED: POTASSIUM CHLORIDE 10MEQ EA PO ONE (09:25)
[2021-06-15] MEDS ORDERED: HYDROCODONE/APAP 7.5MG-325MG 1 EA TAB PO PRN (09:45)
[2021-06-15] MEDS: METOPROLOL SUCCINATE 50 MG TAB XL PO SCH (09:51)
[2021-06-15] MEDS: ASPIRIN 81 MG CHEW TAB PO SCH (09:51)
[2021-06-15] MEDS: PRASUGREL 10 MG TAB PO SCH (09:52)
[2021-06-15] MEDS: INSULIN REGULAR, HUMAN 100 UNIT/1 ML SQ SCH ×4 (10:09→21:00)
[2021-06-15] MEDS: INSULIN GLARGINE 100 UNITS/ML VIAL SQ SCH ×2 (10:09→21:00)
[2021-06-15 10:24] LABS: CHOL/HDL RATIO 3.5 (3.0-3.6)
[2021-06-15] MEDS: SODIUM CHLORIDE 0.9% 1000ML 1,000 ML IV SCH ×2 (10:36→16:13)
[2021-06-15] MEDS: PROMETHAZINE 12.5MG/ NACL 0.9% 12.5 MG/50 ML BAG IV PRN (14:48)
[2021-06-15] MEDS: HYDROMORPHONE 1MG/1ML INJ IV PRN ×2 (14:56→18:55)
[2021-06-15] MEDS: AMLODIPINE BESYLATE 5 MG TAB PO SCH (18:55)
[2021-06-15] MEDS: VENLAFAXINE HCL 75 MG CAPCR PO SCH (21:19)
[2021-06-15] MEDS: ATORVASTATIN 40 MG TAB PO SCH (21:19)
[2021-06-15] MEDS: QUETIAPINE FUMARATE 25 MG TAB PO SCH (21:19)
[2021-06-16] VITALS (8 sets, daily range): BP systolic 95–175; BP diastolic 69–104
[2021-06-16] MEDS: HYDROMORPHONE 1MG/1ML INJ IV PRN ×4 (00:02→19:50)
[2021-06-16] MEDS: PROMETHAZINE 12.5MG/ NACL 0.9% 12.5 MG/50 ML BAG IV PRN ×4 (00:03→19:50)
[2021-06-16 01:25] LABS: % IRON SATURATION 23 % (15-50); IRON 73 ug/dL (50-170); TOTAL IRON BINDING CAPACITY 318 ug/dL (261-478); TRANSFERRIN 227 mg/dL (180-382)
[2021-06-16] MEDS: CEFTRIAXONE 1 GM in SODIUM CHLORIDE 0.9% 50ML 50 ML IV SCH ×2 (04:53→16:17)
[2021-06-16 06:14] LABS: BASOPHILS % 0.5 % (0.0-1.0); EOSINOPHILS # (AUTO) 0.1 (0.0-0.4); HEMATOCRIT 29.9 % (34.2-44.1); HEMOGLOBIN 9.7 g/dL (12.0-16.0); LYMPHOCYTES # (AUTO) 2.2 (1.0-3.2); LYMPHOCYTES % 24.7 % (18.0-39.1); MEAN CORPUSCULAR HEMOGLOBIN 28.2 pg (28-32); MEAN CORPUSCULAR HGB CONC 32.4 g/dL (31-35); MEAN CORPUSCULAR VOLUME 86.9 fL (81-99); MONOCYTES # (AUTO) 0.5 (0.2-0.8); MONOCYTES % 5.2 % (4.4-11.3); NEUTROPHILS % 67.9 % (38.7-80.0); PLATELET COUNT 149 x10e3/uL (140-360); RED BLOOD COUNT 3.44 x10e6/uL (3.6-5.1)
[2021-06-16] MEDS: SODIUM CHLORIDE 0.9% 1000ML 1,000 ML IV SCH ×2 (06:24→09:45)
[2021-06-16 06:34] LABS: ALBUMIN 3.4 g/dL (3.5-5.0); ALBUMIN/GLOBULIN RATIO 1.1 (0.8-2.0); ANION GAP 12.8 mmol/L (8-16); CALCIUM 8.6 mg/dL (8.4-10.2); CREATININE, SERUM 1.07 mg/dL (0.57-1.11); POTASSIUM 3.8 mmol/L (3.5-5.1)
[2021-06-16] MEDS: INSULIN REGULAR, HUMAN 100 UNIT/1 ML SQ SCH ×4 (07:30→21:00)
[2021-06-16] MEDS: ASPIRIN 81 MG CHEW TAB PO SCH (09:00)
[2021-06-16] MEDS: INSULIN GLARGINE 100 UNITS/ML VIAL SQ SCH ×2 (09:00→21:00)
[2021-06-16] MEDS: AMLODIPINE BESYLATE 5 MG TAB PO SCH (09:09)
[2021-06-16] MEDS: METOPROLOL SUCCINATE 50 MG TAB XL PO SCH (09:09)
[2021-06-16] MEDS ORDERED: FENTANYL CITRATE/PF 100MCG/2 ML INJ ONE (16:11)
[2021-06-16] MEDS: VENLAFAXINE HCL 75 MG CAPCR PO SCH (21:16)
[2021-06-16] MEDS: QUETIAPINE FUMARATE 25 MG TAB PO SCH (21:16)
[2021-06-16] MEDS: ATORVASTATIN 40 MG TAB PO SCH (21:16)
[2021-06-17 01:00] VITALS: BP 150/98
[2021-06-17] MEDS: PROMETHAZINE 12.5MG/ NACL 0.9% 12.5 MG/50 ML BAG IV PRN (02:03)
[2021-06-17] MEDS: HYDROMORPHONE 1MG/1ML INJ IV PRN ×2 (02:04→09:46)
[2021-06-17] MEDS: CEFTRIAXONE 1 GM in SODIUM CHLORIDE 0.9% 50ML 50 ML IV SCH ×2 (03:22→16:00)
[2021-06-17 04:49] VITALS: BP 177/97
[2021-06-17 07:10] LABS: ALBUMIN 3.7 g/dL (3.5-5.0); ALBUMIN/GLOBULIN RATIO 1.1 (0.8-2.0); ANION GAP 16.1 mmol/L (8-16); CALCIUM 8.4 mg/dL (8.4-10.2); CREATININE, SERUM 0.89 mg/dL (0.57-1.11); POTASSIUM 3.1 mmol/L (3.5-5.1)
[2021-06-17] MEDS: INSULIN REGULAR, HUMAN 100 UNIT/1 ML SQ SCH ×3 (07:30→16:15)
[2021-06-17] MEDS: ASPIRIN 81 MG CHEW TAB PO SCH (08:19)
[2021-06-17] MEDS: AMLODIPINE BESYLATE 5 MG TAB PO SCH (08:19)
[2021-06-17] MEDS: METOPROLOL SUCCINATE 50 MG TAB XL PO SCH (08:20)
[2021-06-17] MEDS: INSULIN GLARGINE 100 UNITS/ML VIAL SQ SCH (08:24)
[2021-06-17] MEDS ORDERED: LISINOPRIL 10 MG TAB PO SCH (09:00)
[2021-06-17 09:11] VITALS: BP 158/83
[2021-06-17] MEDS ORDERED: POTASSIUM CHLORIDE 20 MEQ TAB CR PO NR (13:15)
[2021-06-17 14:10] LABS: BASOPHILS % 0.4 % (0.0-1.0); EOSINOPHILS # (AUTO) 0.2 (0.0-0.4); EOSINOPHILS % 1.4 % (0.0-6.0); HEMATOCRIT 35.6 % (34.2-44.1); HEMOGLOBIN 11.6 g/dL (12.0-16.0); LYMPHOCYTES # (AUTO) 1.9 (1.0-3.2); LYMPHOCYTES % 16.9 % (18.0-39.1); MEAN CORPUSCULAR HGB CONC 32.6 g/dL (31-35); MEAN CORPUSCULAR VOLUME 85.8 fL (81-99); MONOCYTES # (AUTO) 0.6 (0.2-0.8); NEUTROPHILS # (AUTO) 8.3 (2.1-6.9); NEUTROPHILS % 75.8 % (38.7-80.0); PLATELET COUNT 169 x10e3/uL (140-360); RED BLOOD COUNT 4.15 x10e6/uL (3.6-5.1)
[2021-06-17 14:30] LABS: ALBUMIN 3.7 g/dL (3.5-5.0); ANION GAP 11.7 mmol/L (8-16); CALCIUM 8.8 mg/dL (8.4-10.2); CREATININE, SERUM 0.92 mg/dL (0.57-1.11); POTASSIUM 3.7 mmol/L (3.5-5.1)
[2021-06-17 14:50] LABS: AMYLASE 117 U/L (25-125); LIPASE 38 U/L (8-78)
[2021-06-17] MEDS ORDERED: CIPRO250 MG PO (15:16)
[2021-06-17 15:52] VITALS: BP 153/79
== END 2021-06-17 16:14 | disposition home or self-care (01) | DRG 438 ==
LOC: ER 07:47 → ERHOLD 09:27 → OBSVTOIN 10:36 → MED/SURG3 10:46 → MED/SURG2 06-16 16:44
PROVIDERS: ADMIT Internal Medicine; ATTEND Internal Medicine
PROC: 0DB78ZX Excision of Stomach, Pylorus, Via Natural or Artificial Opening Endoscopic, Diagnostic (ICD-10-PCS; principal; 2021-06-16 18:30)
DX: K85.90 Acute pancreatitis without necrosis or infection, unspecified (principal); I50.43 Acute on chronic combined systolic (congestive) and diastolic (congestive) heart failure; N17.9 Acute kidney failure, unspecified; I13.0 Hypertensive heart and chronic kidney disease with heart failure and stage 1 through stage 4 chronic kidney disease, or unspecified chronic kidney disease; N39.0 Urinary tract infection, site not specified; E87.0 Hyperosmolality and hypernatremia; I25.110 Atherosclerotic heart disease of native coronary artery with unstable angina pectoris; E87.5 Hyperkalemia; R10.13 Epigastric pain; Z76.5 Malingerer [conscious simulation]; Z95.5 Presence of coronary angioplasty implant and graft; I10 Essential (primary) hypertension; F19.10 Other psychoactive substance abuse, uncomplicated; Z20.822 Contact with and (suspected) exposure to COVID-19; F32.A Depression, unspecified; E11.51 Type 2 diabetes mellitus with diabetic peripheral angiopathy without gangrene; Z79.899 Other long term (current) drug therapy; R07.89 Other chest pain; E11.65 Type 2 diabetes mellitus with hyperglycemia; Z86.718 Personal history of other venous thrombosis and embolism; N18.30 Chronic kidney disease, stage 3 unspecified; E11.22 Type 2 diabetes mellitus with diabetic chronic kidney disease; B96.20 Unspecified Escherichia coli [E. coli] as the cause of diseases classified elsewhere; K20.90 Esophagitis, unspecified without bleeding; K29.70 Gastritis, unspecified, without bleeding; K76.0 Fatty (change of) liver, not elsewhere classified; Z86.19 Personal history of other infectious and parasitic diseases
CPT/HCPCS: 36415; 43239; 71045; 74176; 76700; 78452; 80053; 80061; 80307; 81001; 82150; 82378; 82550; 82553; 82607; 82746; 82948; 83540; 83605; 83690; 83735; 83880; 84100; 84466; 84484; 85025; 85045; 85379; 87040; 87071; 87086; 87186; 87205; 88305; 88312; 93005; 93017; 93306; 96360; 96361; 96372; 99284; A9502; J0696; J1170; J1815; J1817; J2270; J2405; J2550; J3010; J7030; U0002

== ENCOUNTER → 2022-04-30 | Outpatient (CLI) | payer OTHER ==
[~2022-04-30] MED LIST changes: +CIPRO250 MG PO
== END ==
LOC: RAD 12:23
PROVIDERS: ATTEND Internal Medicine
DX: I50.9 Heart failure, unspecified (principal)
CPT/HCPCS: 71046

== ENCOUNTER 2022-07-08 11:34 | Emergency (ER) | payer OTHER ==
[~2022-07-08] VITALS: Ht 162.6 cm; Wt 72.6 kg
[2022-07-08] MEDS ORDERED: ONDANSETRON HCL 4 MG ORAL DISINTEGRATING TAB PO ONE (12:15)
[2022-07-08] MEDS ORDERED: MECLIZINE HCL 12.5 MG TAB PO ONE (12:15)
[2022-07-08 12:42] LABS: BASOPHILS % 0.4 % (0.0-1.0); EOSINOPHILS # (AUTO) 0.2 (0.0-0.4); EOSINOPHILS % 3.8 % (0.0-6.0); HEMATOCRIT 38.1 % (34.2-44.1); HEMOGLOBIN 12.5 g/dL (12.0-16.0); LYMPHOCYTES # (AUTO) 1.1 (1.0-3.2); LYMPHOCYTES % 24.3 % (18.0-39.1); MEAN CORPUSCULAR HEMOGLOBIN 26.6 pg (28-32); MEAN CORPUSCULAR HGB CONC 32.8 g/dL (31-35); MEAN CORPUSCULAR VOLUME 81.1 fL (81-99); MONOCYTES # (AUTO) 0.3 (0.2-0.8); NEUTROPHILS # (AUTO) 2.9 (2.1-6.9); NEUTROPHILS % 65.1 % (38.7-80.0); PLATELET COUNT 186 x10e3/uL (140-360); RED CELL DISTRIBUTION WIDTH 14.6 % (11.7-14.4)
[2022-07-08 13:01] LABS: ALBUMIN 3.8 g/dL (3.5-5.0); ALBUMIN/GLOBULIN RATIO 0.9 (0.8-2.0); ANION GAP 17.1 mmol/L (8-16); CALCIUM 9.3 mg/dL (8.4-10.2); CREATININE, SERUM 1.36 mg/dL (0.57-1.11); POTASSIUM 4.1 mmol/L (3.5-5.1)
[2022-07-08] MEDS ORDERED: ONDANSETRON ODT4 MG PO (13:30)
[2022-07-08] MEDS ORDERED: MECLIZINE HCL12.5 MG PO (13:30)
== END 2022-07-08 13:58 | disposition home or self-care (01) ==
LOC: ER 12:01
DX: R42 Dizziness and giddiness (principal); I12.9 Hypertensive chronic kidney disease with stage 1 through stage 4 chronic kidney disease, or unspecified chronic kidney disease; E10.22 Type 1 diabetes mellitus with diabetic chronic kidney disease; N18.9 Chronic kidney disease, unspecified; Z99.2 Dependence on renal dialysis; I50.9 Heart failure, unspecified; I25.10 Atherosclerotic heart disease of native coronary artery without angina pectoris; F31.9 Bipolar disorder, unspecified; Z95.5 Presence of coronary angioplasty implant and graft
CPT/HCPCS: 36415; 80053; 84484; 85025; 99283; J8597; Q0162

== ENCOUNTER 2024-04-12 15:05 | Emergency (ER) | payer OTHER ==
[~2024-04-12] VITALS: Ht 162.6 cm; Wt 79.4 kg
[~2024-04-12 15:05] MED LIST changes: +AMITRIPTYLINE H25 MG PO; +CIPRO500 MG PO; +CRESTOR10 MG PO; +FUROSEMIDE40 MG PO; +HAIR, SKIN AND1 EAC1 PO; +LANTUS 3ML100 UNITS/ SC; +MECLIZINE HCL12.5 MG PO; +NOVOLOG MI100 UNIT/1 SC; +ONDANSETRON ODT4 MG PO; +PANTOPRAZOLE SO40 MG PO; +PEPCID20 MG PO; +PROMETHAZINE HC25 M1 PO; +ULTRAM 50MG50 MG PO
[2024-04-12 15:15] VITALS: PULSE 90; RESP 18; TEMP 98.7
[2024-04-12] MEDS ORDERED: SODIUM CHLORIDE FLUSH 10 ML SYR IV PRN (16:00)
[2024-04-12 16:11] LABS: BASOPHILS % 0.5 % (0.0-1.0); EOSINOPHILS # (AUTO) 0.1 (0.0-0.4); EOSINOPHILS % 1.8 % (0.0-6.0); HEMATOCRIT 39.1 % (34.2-44.1); HEMOGLOBIN 12.5 g/dL (12.0-16.0); LYMPHOCYTES # (AUTO) 2.1 (1.0-3.2); LYMPHOCYTES % 32.4 % (18.0-39.1); MEAN CORPUSCULAR HEMOGLOBIN 27.7 pg (28-32); MEAN CORPUSCULAR VOLUME 86.7 fL (81-99); MONOCYTES # (AUTO) 0.3 (0.2-0.8); MONOCYTES % 4.8 % (4.4-11.3); NEUTROPHILS # (AUTO) 3.9 (2.1-6.9); NEUTROPHILS % 60.3 % (38.7-80.0); PLATELET COUNT 142 x10e3/uL (140-360); RED BLOOD COUNT 4.51 x10e6/uL (3.6-5.1); RED CELL DISTRIBUTION WIDTH 15.3 % (11.7-14.4); WHITE BLOOD COUNT 6.49 x10e3/uL (4.8-10.8)
[2024-04-12 16:25] LABS: ALBUMIN 4.3 g/dL (3.5-5.0); ALBUMIN/GLOBULIN RATIO 1.5 (0.8-2.0); ANION GAP 13.2 mmol/L (8-16); BILIRUBIN,TOTAL 0.5 mg/dL (0.2-1.2); CALCIUM 9.6 mg/dL (8.4-10.2); CREATININE, SERUM 1.56 mg/dL (0.57-1.11); POTASSIUM 4.2 mmol/L (3.5-5.1); TOTAL PROTEIN 7.1 g/dL (6.5-8.1)
[2024-04-12 16:31] LABS: TROPONIN I 0.006 ng/mL (0-0.300)
[2024-04-12] MEDS: Morphine 4mg INJECTION 4 MG/ML INJ IV ONE (16:59)
[2024-04-12] MEDS: MECLIZINE HCL 12.5 MG TAB PO ONE (16:59)
[2024-04-12 17:28] LABS: BILIRUBIN,URINE NEGATIVE (NEGATIVE); CLARITY,URINE SL CLOUDY (CLEAR); COLOR,URINE YELLOW (YELLOW); GLUCOSE, URINE NEGATIVE (NEGATIVE); KETONES,URINE NEGATIVE (NEGATIVE); LEUKOCYTE ESTERASE ,URINE NEGATIVE (NEGATIVE); NITRITE,URINE NEGATIVE (NEGATIVE); PH,URINE 7 (5 - 7); PROTEIN,URINE DIPSTICK NEGATIVE (NEGATIVE); URINE UROBILINOGEN 0.2 mg/dL (0.2 - 1)
[2024-04-12 17:48] LABS: BACTERIA,URINE RARE /HPF; EPITHELIAL CELLS,URINE RARE /LPF; WBC,URINE (MAN) 0-5 /HPF (0-5)
[2024-04-12] MEDS: SODIUM CHLORIDE 0.9% 1000ML 1,000 ML IV ONE (18:05)
[2024-04-12 19:15] VITALS: BP 141/81; PULSE 80; RESP 18; TEMP 98.6; O2SAT 95
== END 2024-04-12 19:15 | disposition home or self-care (01) ==
LOC: ER 15:31
DX: R42 Dizziness and giddiness (principal); R51.9 Headache, unspecified; E11.65 Type 2 diabetes mellitus with hyperglycemia; I10 Essential (primary) hypertension; I25.10 Atherosclerotic heart disease of native coronary artery without angina pectoris; J45.909 Unspecified asthma, uncomplicated; R94.31 Abnormal electrocardiogram [ECG] [EKG]
CPT/HCPCS: 36415; 70450; 71045; 80053; 81001; 84484; 85025; 93005; 94760; 99284; J2270; J7030; J8597

== ENCOUNTER 2024-04-20 13:35 | Emergency (ER) | payer OTHER ==
[~2024-04-20] VITALS: Ht 162.6 cm; Wt 73.7 kg
[2024-04-20 13:51] VITALS: PULSE 86; RESP 16; TEMP 98.5; O2SAT 99
== END 2024-04-20 14:38 | disposition home or self-care (01) ==
LOC: FSED 13:58
DX: R05.9 Cough, unspecified (principal); U07.1 COVID-19; R53.1 Weakness; R51.9 Headache, unspecified; I10 Essential (primary) hypertension; E10.9 Type 1 diabetes mellitus without complications; I50.9 Heart failure, unspecified; Z95.5 Presence of coronary angioplasty implant and graft
CPT/HCPCS: 0223U; 99283

== ENCOUNTER 2024-07-30 16:51 | Inpatient (IN) | payer OTHER ==
[~2024-07-30] VITALS: Ht 162.6 cm; Wt 76.7 kg
[2024-07-30 17:32] VITALS: TEMP 98.1
[2024-07-30 18:02] LABS: BASOPHILS % 0.1 % (0.0-1.0); HEMATOCRIT 41.5 % (34.2-44.1); HEMOGLOBIN 13.4 g/dL (12.0-16.0); LYMPHOCYTES # (AUTO) 1.8 (1.0-3.2); LYMPHOCYTES % 15.2 % (18.0-39.1); MEAN CORPUSCULAR HEMOGLOBIN 28.9 pg (28-32); MEAN CORPUSCULAR HGB CONC 32.3 g/dL (31-35); MEAN CORPUSCULAR VOLUME 89.4 fL (81-99); MONOCYTES # (AUTO) 0.8 (0.2-0.8); MONOCYTES % 6.9 % (4.4-11.3); NEUTROPHILS # (AUTO) 9.3 (2.1-6.9); NEUTROPHILS % 77.4 % (38.7-80.0); PLATELET COUNT 162 x10e3/uL (140-360); RED BLOOD COUNT 4.64 x10e6/uL (3.6-5.1); RED CELL DISTRIBUTION WIDTH 13.2 % (11.7-14.4); WHITE BLOOD COUNT 12.01 x10e3/uL (4.8-10.8)
[2024-07-30] MEDS: Morphine 4mg INJECTION 4 MG/ML INJ IV STA (18:13)
[2024-07-30 18:23] LABS: ALBUMIN 4.4 g/dL (3.5-5.0); ALBUMIN/GLOBULIN RATIO 1.3 (0.8-2.0); ANION GAP 19.2 mmol/L (8-16); BILIRUBIN,TOTAL 0.9 mg/dL (0.2-1.2); CALCIUM 10.4 mg/dL (8.4-10.2); CREATININE, SERUM 1.99 mg/dL (0.57-1.11); POTASSIUM 4.2 mmol/L (3.5-5.1); TOTAL PROTEIN 7.8 g/dL (6.5-8.1)
[2024-07-30 18:29] LABS: TROPONIN I 0.138 ng/mL (0-0.300)
[2024-07-30] MEDS ORDERED: IOPAMIDOL 370 MG/ML 100 ML INFUS..BTL INJ ONE (18:34)
[2024-07-30] MEDS: SODIUM CHLORIDE 0.9% 1000ML 1,000 ML IV STA (18:47)
[2024-07-30] MEDS: ONDANSETRON HCL INJ 2MG/ML 2ML 2 MG/ML VIAL IV STA (18:48)
[2024-07-30] MEDS: PROMETHAZINE 25MG/ NS 50ML (IV) IV PRN (20:40)
[2024-07-30] MEDS: DIAZEPAM INJ 5 MG/ML 2 ML IV STA (20:43)
[2024-07-30 22:15] VITALS: PULSE 62; RESP 18
[2024-07-30 22:21] VITALS: BP 145/73; PULSE 63; RESP 17; TEMP 97.3; O2SAT 100
[2024-07-30] MEDS: ONDANSETRON HCL INJ 2MG/ML 2ML 2 MG/ML VIAL IV PRN (23:03)
[2024-07-30] MEDS: SODIUM CHLORIDE 0.9% 1000ML 1,000 ML IV SCH (23:03)
[2024-07-30] MEDS: ACETAMINOPHEN 325 MG TAB PO PRN (23:04)
[2024-07-30 23:25] LABS: BILIRUBIN,URINE NEGATIVE (NEGATIVE); CLARITY,URINE CLEAR (CLEAR); COLOR,URINE YELLOW (YELLOW); GLUCOSE, URINE >=1000 (NEGATIVE); KETONES,URINE NEGATIVE (NEGATIVE); LEUKOCYTE ESTERASE ,URINE NEGATIVE (NEGATIVE); NITRITE,URINE NEGATIVE (NEGATIVE); PH,URINE 6.5 (5 - 7); PROTEIN,URINE DIPSTICK 2+ (NEGATIVE); URINE UROBILINOGEN 0.2 mg/dL (0.2 - 1)
[2024-07-30 23:27] VITALS: BP 145/73; PULSE 63; RESP 17; TEMP 97.3; O2SAT 100
[2024-07-30 23:30] VITALS: PULSE 63; RESP 18; O2SAT 100
[2024-07-30 23:42] LABS: CORONAVIRUS COVID-19 AG NEGATIVE (NEGATIVE); INFLUENZA A AG NEGATIVE (NEGATIVE); INFLUENZA B AG NEGATIVE (NEGATIVE)
[2024-07-30 23:52] LABS: AMPHETAMINES SCREEN,URINE NEGATIVE (NEGATIVE); BENZODIAZEPINES SCREEN,URINE NEGATIVE (NEGATIVE); CANNABINOIDS SCREEN,URINE POSITIVE (NEGATIVE); COCAINE SCREEN,URINE NEGATIVE (NEGATIVE); METHADONE SCREEN, URINE NEGATIVE (NEGATIVE); OPIATES SCREEN,URINE NEGATIVE (NEGATIVE); PHENCYCLIDINE SCREEN,URINE NEGATIVE (NEGATIVE)
[2024-07-31] VITALS (8 sets, daily range): BP systolic 106–143; BP diastolic 65–84; PULSE 71–116; RESP 18–20; TEMP 97.8–98.7; O2SAT 97–100
[2024-07-31 00:23] LABS: BACTERIA,URINE MANY /HPF; EPITHELIAL CELLS,URINE MODERATE /LPF
[2024-07-31 05:42] LABS: BASOPHILS % 0.2 % (0.0-1.0); EOSINOPHILS % 0.1 % (0.0-6.0); HEMATOCRIT 36.9 % (34.2-44.1); HEMOGLOBIN 12.3 g/dL (12.0-16.0); MEAN CORPUSCULAR HEMOGLOBIN 28.9 pg (28-32); MEAN CORPUSCULAR HGB CONC 33.3 g/dL (31-35); MEAN CORPUSCULAR VOLUME 86.8 fL (81-99); MONOCYTES # (AUTO) 0.6 (0.2-0.8); MONOCYTES % 5.2 % (4.4-11.3); NEUTROPHILS # (AUTO) 9.2 (2.1-6.9); NEUTROPHILS % 76.8 % (38.7-80.0); PLATELET COUNT 128 x10e3/uL (140-360); RED BLOOD COUNT 4.25 x10e6/uL (3.6-5.1); RED CELL DISTRIBUTION WIDTH 13.4 % (11.7-14.4)
[2024-07-31 06:11] LABS: TROPONIN I 0.115 ng/mL (0-0.300)
[2024-07-31 06:17] LABS: ALBUMIN 3.8 g/dL (3.5-5.0); ALBUMIN/GLOBULIN RATIO 1.3 (0.8-2.0); ANION GAP 15.7 mmol/L (8-16); CREATININE, SERUM 1.63 mg/dL (0.57-1.11); POTASSIUM 3.7 mmol/L (3.5-5.1); TOTAL PROTEIN 6.7 g/dL (6.5-8.1)
[2024-07-31] MEDS ORDERED: DEXTROSE 50% SYRINGE 50 ML IV PRN (14:45)
[2024-07-31] MEDS: METOPROLOL SUCCINATE 50 MG TAB XL PO SCH (15:09)
[2024-07-31] MEDS: ONDANSETRON HCL 4 MG ORAL DISINTEGRATING TAB PO PRN (15:11)
[2024-07-31] MEDS: INSULIN LISPRO 100 UNIT/1 ML 3ML VIAL SQ SCH (18:18)
[2024-07-31 19:03] LABS: TROPONIN I 0.039 ng/mL (0-0.300)
[2024-07-31] MEDS: AMITRIPTYLINE HCL 25 MG TAB PO SCH (21:43)
[2024-07-31] MEDS: PREGABALIN 75 MG CAP PO ONE (21:43)
[2024-07-31] MEDS: SODIUM CHLORIDE 0.9% 1000ML 1,000 ML IV SCH (23:41)
[2024-08-01] VITALS (9 sets, daily range): BP systolic 117–144; BP diastolic 70–80; PULSE 66–98; RESP 16–21; TEMP 98.3–99.5; O2SAT 96–100
[2024-08-01] MEDS: ALBUTEROL/IPRATROPIUM 3 ML NEB INH SCH (06:22)
[2024-08-01] MEDS: PREGABALIN 75 MG CAP PO SCH ×2 (08:20→16:21)
[2024-08-01] MEDS: PANTOPRAZOLE SODIUM 20 MG TABLET.DR PO SCH (08:21)
[2024-08-01] MEDS: Morphine 4mg INJECTION 4 MG/ML INJ IV PRN (14:24)
[2024-08-01] MEDS: SIMVASTATIN 40 MG TAB PO SCH (20:25)
[2024-08-02] VITALS (9 sets, daily range): BP systolic 101–142; BP diastolic 61–77; PULSE 79–101; RESP 18; TEMP 97.5–98.5; O2SAT 96–98
[2024-08-02] MEDS: METOCLOPRAMIDE HCL 10 MG/2ML VIAL IV STA (00:34)
[2024-08-02] MEDS: METOCLOPRAMIDE HCL 10 MG/2ML VIAL IV SCH (05:12)
[2024-08-02 06:39] LABS: BASOPHILS % 0.4 % (0.0-1.0); EOSINOPHILS # (AUTO) 0.2 (0.0-0.4); EOSINOPHILS % 2.3 % (0.0-6.0); HEMATOCRIT 35.9 % (34.2-44.1); HEMOGLOBIN 11.2 g/dL (12.0-16.0); LYMPHOCYTES # (AUTO) 2.7 (1.0-3.2); LYMPHOCYTES % 39.3 % (18.0-39.1); MEAN CORPUSCULAR HEMOGLOBIN 28.5 pg (28-32); MEAN CORPUSCULAR HGB CONC 31.2 g/dL (31-35); MEAN CORPUSCULAR VOLUME 91.3 fL (81-99); MONOCYTES # (AUTO) 0.5 (0.2-0.8); NEUTROPHILS # (AUTO) 3.6 (2.1-6.9); NEUTROPHILS % 50.9 % (38.7-80.0); PLATELET COUNT 105 x10e3/uL (140-360); RED BLOOD COUNT 3.93 x10e6/uL (3.6-5.1); RED CELL DISTRIBUTION WIDTH 13.3 % (11.7-14.4); WHITE BLOOD COUNT 6.98 x10e3/uL (4.8-10.8)
[2024-08-02 07:10] LABS: ALBUMIN/GLOBULIN RATIO 1.3 (0.8-2.0); ANION GAP 10.5 mmol/L (8-16); BILIRUBIN,TOTAL 0.8 mg/dL (0.2-1.2); CALCIUM 8.2 mg/dL (8.4-10.2); CREATININE, SERUM 1.17 mg/dL (0.57-1.11); MAGNESIUM 1.8 MG/DL (1.3-2.1); PHOSPHORUS 2.2 MG/DL (2.3-4.7); POTASSIUM 3.5 mmol/L (3.5-5.1); TOTAL PROTEIN 5.3 g/dL (6.5-8.1)
[2024-08-02 07:32] LABS: CHOL/HDL RATIO 2.5 (3.0-3.6)
[2024-08-02 07:52] LABS: FREE T4 (FREE THYROXINE) 1.23 ng/dL (0.8-1.8); THYROID STIMULATING HORMONE 1.639 uIU/mL (0.350-4.940)
[2024-08-02] MEDS: ASPIRIN 81 MG CHEW TAB PO SCH (08:23)
[2024-08-02] MEDS ORDERED: FUROSEMIDE 40 MG TAB PO SCH (09:00)
[2024-08-03] VITALS (7 sets, daily range): BP systolic 111–132; BP diastolic 64–84; PULSE 87–93; RESP 18–19; TEMP 97.8–98.2; O2SAT 96–99
[2024-08-03 06:20] LABS: ALBUMIN/GLOBULIN RATIO 1.5 (0.8-2.0); ANION GAP 10.8 mmol/L (8-16); BILIRUBIN,TOTAL 0.6 mg/dL (0.2-1.2); CALCIUM 8.1 mg/dL (8.4-10.2); CREATININE, SERUM 1.23 mg/dL (0.57-1.11); POTASSIUM 3.8 mmol/L (3.5-5.1)
[2024-08-03] MEDS ORDERED: PROPOFOL IV EMULSION 10 MG/ML 20 ML VIAL ONE (12:39)
[2024-08-03] MEDS ORDERED: LIDOCAINE HCL 2% LOCAL INJ 5 ML SDV VIAL INJ ONE (12:39)
[2024-08-03] MEDS ORDERED: FENTANYL CITRATE/PF 100MCG/2 ML INJ ONE (12:39)
[2024-08-03] MEDS ORDERED: MIDAZOLAM HCL 2 MG/2 ML VIAL ONE (12:39)
[2024-08-03 15:05] LABS: HEPATITIS A ANTIBODY IGM (P) Nonreactive; HEPATITIS B SURFACE AG (P) Nonreactive; HEPATITIS C ANTIBODY Reactive
[2024-08-03 15:06] LABS: HEPATITIS B CORE IGM (P) Nonreactive
[2024-08-03] MEDS ORDERED: DICYCLOMINE HCL 10 MG CAP PO PRN (15:45)
[2024-08-03] MEDS ORDERED: ONDANSETRON ODT4 MG PO (15:50)
[2024-08-03] MEDS ORDERED: LYRICA75 MG PO (15:50)
[2024-08-03] MEDS ORDERED: METOCLOPRAMIDE H5 MG PO (15:50)
[2024-08-03] MEDS ORDERED: DICYCLOMINE HCL10 MG PO (15:50)
[2024-08-03] MEDS ORDERED: PANTOPRAZOLE SO40 MG PO (15:50)
[2024-08-03] MEDS: DICYCLOMINE HCL 10 MG CAP PO ONE (16:52)
== END 2024-08-03 18:10 | disposition home or self-care (01) | DRG 381 ==
LOC: ER 17:49 → ERHOLD 20:40 → MED/SURG2 22:24 → OBSVTOIN 08-01 15:53
PROVIDERS: ADMIT Internal Medicine; ATTEND Internal Medicine
PROC: 05HC33Z Insertion of Infusion Device into Left Basilic Vein, Percutaneous Approach (ICD-10-PCS; principal; 2024-07-31)
PROC: 0D778ZZ Dilation of Stomach, Pylorus, Via Natural or Artificial Opening Endoscopic (ICD-10-PCS; 2024-08-03)
PROC: 0DB78ZX Excision of Stomach, Pylorus, Via Natural or Artificial Opening Endoscopic, Diagnostic (ICD-10-PCS; 2024-08-03 12:44)
DX: K31.1 Adult hypertrophic pyloric stenosis (principal); I13.0 Hypertensive heart and chronic kidney disease with heart failure and stage 1 through stage 4 chronic kidney disease, or unspecified chronic kidney disease; N17.9 Acute kidney failure, unspecified; K74.60 Unspecified cirrhosis of liver; I50.9 Heart failure, unspecified; E86.0 Dehydration; T18.2XXA Foreign body in stomach, initial encounter; W44.F3XA Food entering into or through a natural orifice, initial encounter; K20.90 Esophagitis, unspecified without bleeding; K29.50 Unspecified chronic gastritis without bleeding; K58.0 Irritable bowel syndrome with diarrhea; E11.22 Type 2 diabetes mellitus with diabetic chronic kidney disease; N18.30 Chronic kidney disease, stage 3 unspecified; E11.40 Type 2 diabetes mellitus with diabetic neuropathy, unspecified; Z79.4 Long term (current) use of insulin; R00.0 Tachycardia, unspecified; J45.909 Unspecified asthma, uncomplicated; F31.9 Bipolar disorder, unspecified; I25.10 Atherosclerotic heart disease of native coronary artery without angina pectoris; Z95.5 Presence of coronary angioplasty implant and graft; R82.5 Elevated urine levels of drugs, medicaments and biological substances; Z71.81 Spiritual or religious counseling; Z89.111 Acquired absence of right hand; Z90.12 Acquired absence of left breast and nipple; Z86.19 Personal history of other infectious and parasitic diseases; Z86.14 Personal history of Methicillin resistant Staphylococcus aureus infection; Z79.899 Other long term (current) drug therapy; Z79.82 Long term (current) use of aspirin
CPT/HCPCS: 36415; 36568; 43233; 43239; 70450; 74177; 80053; 80061; 80307; 80320; 81001; 82140; 82550; 82948; 83036; 83690; 83735; 84100; 84439; 84443; 84484; 85025; 87086; 88305; 88342; 93005; 94640; 94799; 96372; 99284; G0378; J2003; J2250; J2270; J2405; J2470; J2550; J2765; J7030; Q0162; Q9967

== ENCOUNTER 2024-11-01 10:20 | Emergency (ER) | payer MEDICAID ==
[~2024-11-01] VITALS: Ht 162.6 cm; Wt 76.7 kg
[~2024-11-01 10:20] MED LIST changes: +DICYCLOMINE HCL10 MG PO; +METOCLOPRAMIDE H5 MG PO
[2024-11-01 10:26] VITALS: TEMP 97.9
[2024-11-01] MEDS: KETOROLAC TROMETHAMINE 30 MG/ML VIAL IV STA (11:00)
[2024-11-01] MEDS: CYCLOBENZAPRINE HCL 10 MG TAB PO ONE (11:00)
[2024-11-01 11:14] LABS: BASOPHILS % 0.4 % (0.0-1.0); EOSINOPHILS # (AUTO) 0.2 (0.0-0.4); EOSINOPHILS % 3.4 % (0.0-6.0); LYMPHOCYTES % 36.9 % (18.0-39.1); MEAN CORPUSCULAR HGB CONC 32.4 g/dL (31-35); MEAN CORPUSCULAR VOLUME 86.4 fL (81-99); MONOCYTES # (AUTO) 0.4 (0.2-0.8); MONOCYTES % 8.3 % (4.4-11.3); NEUTROPHILS # (AUTO) 2.7 (2.1-6.9); NEUTROPHILS % 50.8 % (38.7-80.0); PLATELET COUNT 155 x10e3/uL (140-360); RED BLOOD COUNT 4.28 x10e6/uL (3.6-5.1); RED CELL DISTRIBUTION WIDTH 13.3 % (11.7-14.4); WHITE BLOOD COUNT 5.29 x10e3/uL (4.8-10.8)
[2024-11-01 11:30] VITALS: PULSE 74; RESP 18
[2024-11-01 11:38] LABS: ALBUMIN/GLOBULIN RATIO 1.2 (0.8-2.0); ANION GAP 15.3 mmol/L (8-16); BILIRUBIN,TOTAL 0.5 mg/dL (0.2-1.2); CALCIUM 9.6 mg/dL (8.4-10.2); CREATININE, SERUM 1.66 mg/dL (0.57-1.11); POTASSIUM 4.3 mmol/L (3.5-5.1); TOTAL PROTEIN 7.4 g/dL (6.5-8.1)
[2024-11-01 12:30] VITALS: BP 155/88; PULSE 69; RESP 18; O2SAT 100
[2024-11-01 12:55] LABS: COLOR,URINE YELLOW (YELLOW)
[2024-11-01 12:56] LABS: BILIRUBIN,URINE NEGATIVE (NEGATIVE); CLARITY,URINE CLEAR (CLEAR); GLUCOSE, URINE 500 (NEGATIVE); KETONES,URINE NEGATIVE (NEGATIVE); LEUKOCYTE ESTERASE ,URINE TRACE (NEGATIVE); NITRITE,URINE NEGATIVE (NEGATIVE); PH,URINE 6 (5 - 7); PROTEIN,URINE DIPSTICK NEGATIVE (NEGATIVE); URINE UROBILINOGEN 0.2 mg/dL (0.2 - 1)
[2024-11-01 13:02] LABS: BACTERIA,URINE MODERATE /HPF; EPITHELIAL CELLS,URINE MODERATE /LPF; RBC,URINE 0-5 /HPF (0-5)
[2024-11-01] MEDS ORDERED: CYCLOBENZAPRINE10 MG PO (13:19)
== END 2024-11-01 13:25 | disposition home or self-care (01) ==
LOC: ER 10:24
DX: R10.31 Right lower quadrant pain (principal); K59.00 Constipation, unspecified; M54.50 Low back pain, unspecified; R35.0 Frequency of micturition; I10 Essential (primary) hypertension; E11.65 Type 2 diabetes mellitus with hyperglycemia; E11.40 Type 2 diabetes mellitus with diabetic neuropathy, unspecified; I50.9 Heart failure, unspecified; E78.5 Hyperlipidemia, unspecified; I25.10 Atherosclerotic heart disease of native coronary artery without angina pectoris; F31.9 Bipolar disorder, unspecified
CPT/HCPCS: 36415; 74176; 80053; 81001; 83690; 85025; 87086; 99284; J1885

== ENCOUNTER 2025-05-05 10:39 | Inpatient (IN) | payer MEDICAID ==
[~2025-05-05] VITALS: Ht 162.6 cm; Wt 86.6 kg
[2025-05-05] VITALS (7 sets, daily range): BP systolic 113–124; BP diastolic 64–70; PULSE 70–90; RESP 16–20; TEMP 97.8–98.7; O2SAT 94–98
[~2025-05-05 10:39] MED LIST changes: +CYCLOBENZAPRINE10 MG PO
[2025-05-05] MEDS: TRAMADOL HCL 50 MG TAB PO ONE (12:03)
[2025-05-05] MEDS ORDERED: SODIUM CHLORIDE FLUSH 10 ML SYR INJ PRN (13:15)
[2025-05-05] MEDS ORDERED: ONDANSETRON HCL INJ 2MG/ML 2ML 2 MG/ML VIAL IV PRN (13:15)
[2025-05-05] MEDS ORDERED: ALBUTEROL/IPRATROPIUM 3 ML NEB NEB PRN (15:30)
[2025-05-05] MEDS ORDERED: ACETAMINOPHEN 325 MG TAB PO PRN (15:30)
[2025-05-05] MEDS ORDERED: HYDRALAZINE HCL 20 MG/ML VIAL IV PRN (15:30)
[2025-05-05] MEDS ORDERED: BENZONATATE 100 MG CAP PO PRN (15:30)
[2025-05-05] MEDS ORDERED: DIPHENHYDRAMINE HCL 25 MG CAP PO PRN (15:30)
[2025-05-05] MEDS ORDERED: SIMETHICONE 80 MG CHEW PO PRN (15:30)
[2025-05-05] MEDS ORDERED: LIDOCAINE 4% PATCH TP PRN ×2 (15:30)
[2025-05-05] MEDS ORDERED: POTASSIUM CHLORIDE 20 MEQ TAB CR PO PRN (15:30)
[2025-05-05 15:46] LABS: BASOPHILS % 0.6 % (0.0-1.0); EOSINOPHILS % 2.8 % (0.0-6.0); LYMPHOCYTES % 23.1 % (18.0-39.1); MONOCYTES % 6.5 % (4.4-11.3); NEUTROPHILS % 66.8 % (38.7-80.0); RED CELL DISTRIBUTION WIDTH 14.7 % (11.7-14.4)
[2025-05-05 16:11] LABS: EST GLOMERULAR FILTRATION RATE 42.0 ML/MIN (>=60)
[2025-05-05] MEDS: FUROSEMIDE INJ 10 MG/ML 4 ML VIAL IV ONE (16:26)
[2025-05-05] MEDS: ENOXAPARIN SOD INJ 40 MG/0.4 ML SYR SC SCH (17:28)
[2025-05-05] MEDS: LIDOCAINE 4% PATCH TP SCH (17:51)
[2025-05-05] MEDS: KETOROLAC TROMETHAMINE 30 MG/ML VIAL IV SCH (18:00)
[2025-05-05] MEDS: AMOXICILLIN/CLAVULANATE K 875 MG TAB PO SCH (20:52)
[2025-05-05] MEDS ORDERED: MELATONIN 5 MG TABLET PO PRN (21:00)
[2025-05-05] MEDS: Morphine 2mg Syringe 2 MG/ML SYR IV PRN (23:37)
[2025-05-06] VITALS (10 sets, daily range): BP systolic 106–134; BP diastolic 62–113; PULSE 73–106; RESP 17–20; TEMP 97.5–100.6; O2SAT 92–98
[2025-05-06 07:59] LABS: BASOPHILS % 0.4 % (0.0-1.0); EOSINOPHILS % 3.0 % (0.0-6.0); LYMPHOCYTES % 40.5 % (18.0-39.1); MONOCYTES % 8.7 % (4.4-11.3); NEUTROPHILS % 47.2 % (38.7-80.0); RED CELL DISTRIBUTION WIDTH 15.0 % (11.7-14.4)
[2025-05-06] MEDS: DEXTROSE 50% SYRINGE 50 ML IV PRN (08:15)
[2025-05-06 08:21] LABS: EST GLOMERULAR FILTRATION RATE 39.0 ML/MIN (>=60)
[2025-05-06] MEDS: PANTOPRAZOLE SOD 40 MG TABEC PO SCH (08:22)
[2025-05-06] MEDS ORDERED: DICYCLOMINE HCL 10 MG CAP PO PRN (17:30)
[2025-05-06] MEDS: KETOROLAC TROMETHAMINE 30 MG/ML VIAL IV SCH (17:37)
[2025-05-06] MEDS: SIMVASTATIN 40 MG TAB PO SCH (20:51)
[2025-05-06] MEDS: AMITRIPTYLINE HCL 25 MG TAB PO SCH (20:51)
[2025-05-07] VITALS (9 sets, daily range): BP systolic 61–128; BP diastolic 57–67; PULSE 76–95; RESP 18–21; TEMP 97–99.4; O2SAT 92–97
[2025-05-07] MEDS ORDERED: ASPIRIN81 MG PO (07:24)
[2025-05-07] MEDS: PREGABALIN 75 MG CAP PO SCH (08:50)
[2025-05-07] MEDS: ASPIRIN 81 MG CHEW TAB PO SCH (08:50)
[2025-05-07] MEDS: METOPROLOL SUCCINATE 50 MG TAB XL PO SCH (08:50)
[2025-05-07] MEDS: FUROSEMIDE 40 MG TAB PO SCH (08:52)
[2025-05-07] MEDS ORDERED: DEXTROSE 50% SYRINGE 50 ML IV PRN ×2 (14:30)
[2025-05-07] MEDS: KETOROLAC TROMETHAMINE 30 MG/ML VIAL IV PRN (17:30)
[2025-05-07] MEDS: INSULIN LISPRO 100 UNIT/1 ML 3ML VIAL SQ SCH (17:31)
[2025-05-07] MEDS: DOCUSATE SODIUM 100 MG CAP PO PRN (17:42)
[2025-05-08] VITALS: BP 107/62; PULSE 80; RESP 20; TEMP 97.7; O2SAT 96
[2025-05-08] MEDS: INSULIN GLARGINE 100 UNITS/ML VIAL SQ SCH (00:17)
[2025-05-08 04:00] VITALS: BP 121/68; PULSE 78; RESP 20; TEMP 97.9; O2SAT 97
[2025-05-08 06:54] VITALS: PULSE 82; RESP 21; O2SAT 95
[2025-05-08 07:27] LABS: BASOPHILS % 0.3 % (0.0-1.0); EOSINOPHILS % 4.6 % (0.0-6.0); LYMPHOCYTES % 26.9 % (18.0-39.1); MONOCYTES % 7.4 % (4.4-11.3); NEUTROPHILS % 60.6 % (38.7-80.0); RED CELL DISTRIBUTION WIDTH 15.4 % (11.7-14.4)
[2025-05-08 08:02] LABS: EST GLOMERULAR FILTRATION RATE 35.0 ML/MIN (>=60)
[2025-05-08 08:47] VITALS: BP 143/72; PULSE 79; RESP 18; TEMP 97.7; O2SAT 100
[2025-05-08 08:50] VITALS: BP 143/72; PULSE 79; RESP 18; TEMP 97.7; O2SAT 100
[2025-05-08 12:55] VITALS: BP 133/83; PULSE 91; RESP 18; TEMP 98; O2SAT 98
== END 2025-05-08 12:58 | disposition home or self-care (01) | DRG 184 ==
LOC: FSED 11:19 → ERHOLD 13:09 → MED/SURG2 15:01 → OBSVTOIN 05-07 16:39
PROVIDERS: ADMIT Internal Medicine; ATTEND Internal Medicine
PROC: 02HV33Z Insertion of Infusion Device into Superior Vena Cava, Percutaneous Approach (ICD-10-PCS; principal; 2025-05-05)
DX: S22.41XA Multiple fractures of ribs, right side, initial encounter for closed fracture (principal); I11.0 Hypertensive heart disease with heart failure; I50.22 Chronic systolic (congestive) heart failure; J98.11 Atelectasis; E10.42 Type 1 diabetes mellitus with diabetic polyneuropathy; I25.10 Atherosclerotic heart disease of native coronary artery without angina pectoris; F32.A Depression, unspecified; E78.5 Hyperlipidemia, unspecified; W01.198A Fall on same level from slipping, tripping and stumbling with subsequent striking against other object, initial encounter; Z79.4 Long term (current) use of insulin; Z79.82 Long term (current) use of aspirin; Z95.810 Presence of automatic (implantable) cardiac defibrillator; Z90.49 Acquired absence of other specified parts of digestive tract; Z95.5 Presence of coronary angioplasty implant and graft; Z89.111 Acquired absence of right hand; Z90.710 Acquired absence of both cervix and uterus; Z90.10 Acquired absence of unspecified breast and nipple; Y92.019 Unspecified place in single-family (private) house as the place of occurrence of the external cause
CPT/HCPCS: 36415; 70450; 71250; 80048; 82948; 85025; 93970; 94799; 99283; G0378; J1650; J1885; J2270; J2470; J7799